=== PATIENT | male | born 1950 | race Caucasian/White ===

== ENCOUNTER 2019-04-14 12:29 | Inpatient (IN) | payer MEDICARE, SELFPAY ==
[2019-04-14] VITALS (9 sets, daily range): BP systolic 149–178; BP diastolic 100–123; PULSE 102–118; RESP 18–33; TEMP 36.4–37.4; O2SAT 86–99; BMI 23.0; BMI 22.7
--- NOTE | 2019-04-14 12:35 | DI.RAD.S_ITS ---
PROCEDURE: XR CHEST 2V INDICATIONS: Cough and sob with lying down TECHNIQUE: 2 views of the chest were acquired. COMPARISON: None. FINDINGS: Surgical changes and devices: None. Lungs and pleura: There are diffuse interstitial markings throughout both lungs and small pleural effusions. There are trace bilateral basilar airspace opacities. Mediastinum: Mediastinal contours are normal. Heart size is normal. Bones and chest wall: No suspicious bony abnormalities. Soft tissues appear unremarkable. IMPRESSION: 1. Diffuse interstitial markings and pleural effusions suggesting fluid overload. 2. Bilateral basilar pulmonary radiopacities. Differential considerations include atelectasis, aspiration, and infection. Dictated by: Jazz Hankins M.D. on 04/14/2019 at 12:21 Approved by: Jazz Hankins M.D. on 04/14/2019 at 12:23
[2019-04-14 16:18] LABS: Add Manual Diff / Slide Review NO; Basophils Absolute Auto 100 /uL (0-100); Basophils Percent Auto 0.7 % (0-2); Eosinophils Absolute Auto 0 /uL (0-450); Eosinophils Percent Auto 0.3 % (2-4); Hematocrit 33.2 % (41-53); Hemoglobin 10.9 g/dL (13.5-17.5); Lymphocytes Absolute Auto 1500 /uL (1100-4500); Lymphocytes Percent Auto 15.5 % (25-40); Mean Corpuscular HGB Conc 32.8 % (30-36); Mean Corpuscular Hemoglobin 27.4 PG (26-34); Mean Corpuscular Volume 83.6 fL (80-100); Monocytes Absolute Auto 900 /uL (0-900); Monocytes Percent Auto 9.3 % (3-14); Neutrophils Absolute Auto 7200 /uL (1500-7000); Neutrophils Percent Auto 74.2 % (50-75); Platelet Count 164 X10^3/uL (150-400); Red Blood Cell Count 3.97 X10^6/uL (4.5-5.9); Red Cell Distribution Width 14.3 % (11.6-14.8); White Blood Cell Count 9.8 X10^3/uL (4.5-11.0)
[2019-04-14 16:29] LABS: D Dimer 250 ng/mL (<230)
[2019-04-14 16:30] LABS: Alanine Aminotransferase 53 IU/L (<50); Albumin 4.2 g/dL (3.5-5.0); Albumin Globulin Ratio 1.2 (1.0-2.8); Alkaline Phosphatase 116 U/L (38-126); Aspartate Aminotransferase 36 IU/L (17-59); BUN Creatinine Ratio 16.4 (6-22); Bilirubin Total 0.7 mg/dL (0.2-1.3); Blood Urea Nitrogen 46 mg/dL (9-20); Calcium 9.6 mg/dL (8.4-10.2); Carbon Dioxide 25 mmol/L (22-32); Chloride 103 mmol/L (98-107); Creatine Kinase 107 U/L (55-170); Estimated Glomerular Filt Rate 22.5 mL/min (>60); Globulin 3.4 g/dL (1.7-4.1); Glucose 122 mg/dL (80-110); HEMOLYSIS < 15 (0-50); Lipase 51 U/L (23-300); Potassium 4.6 mmol/L (3.4-5.1); Sodium 140 mmol/L (137-145); Total Protein 7.6 g/dL (6.3-8.2)
[2019-04-14] MEDS: SODIUM CHLORIDE 0.9% 1,000 ML 150 ML IV (16:31)
[2019-04-14 16:37] LABS: B Type Natriuretic Peptide 891 (<100)
[2019-04-14 16:42] LABS: Troponin I 0.027 ng/mL (0.01-0.034)
[2019-04-14 16:46] LABS: CKMB % Relative Index 1.7 % (1.5-5.0); Creatine Kinase MB 1.78 ng/mL (<2.37)
--- NOTE | 2019-04-14 17:04 | ED_ITS ---
HPI - SOB/Dyspnea <TITI MaxP - Last Filed: 04/14/19 23:15> General Chief Complaint: Shortness of Breath/Dyspnea Stated Complaint: Not feeling well, thinks having Heart attack Time Seen by Provider: 04/14/19 15:12 Source: patient Mode of arrival: Ambulatory Limitations: no limitations History of Present Illness HPI Narrative: This is a 68-year-old male, nonsmoker, who presents to ED with several days of difficulty breathing, short of breath, gasping for air, intermittent productive cough with yellow mucus, feeling fatigued. Patient reports posttussive nausea and vomiting with liquid. Patient reports he had injured right-sided posterior rib in May 2017 from falling since then has had intermittent difficulty breathing. Patient denies fever, chills. Patient does not have currently PCP, had taken full-dose of aspirin last night due to discomfort in chest with coughing and breathing difficulty. Denies previous history of blood clots, calf swelling or pain, recent prolonged travel. Reports urinary incontinence for during last a few days. Related Data Home Medications Medication Instructions Recorded Confirmed No Known Home Medications 04/14/19 04/14/19 Allergies Allergy/AdvReac Type Severity Reaction Status Date / Time No Known Drug Allergies Allergy Verified 04/14/19 12:38 Review of Systems <Federico RamosAntoinetteTITI LyonP - Last Filed: 04/14/19 23:15> Review of Systems Narrative: General: Reports fatigue. Denies fever, chills, malaise, sweats. HEENT: Denies sinus pain, ear pain, sore throat, difficulty swallowing, dizziness. Respiratory: See HPI Cardiovascular: Chest discomfort with coughing. Denies chest pain, palpitat ions, orthopnea, edema. Gastrointestinal: Denies nausea, vomiting, abdominal pain, diarrhea, consti pation, melena. : Denies dysuria, frequency, incontinence, hematuria, urinary retention. Musculoskeletal: Denies weakness, joint pain or bony pain. Skin: Denies rash, skin lesions, or other. Neurologic: Denies weakness, headache, numbness, change in speech, confusion, seizures, incoordination. Psychiatric: No concerning psychosocial issues. 12-point review of systems is negative except for those stated above. [facility] Last Filed: 04/14/19 23:15> Medical History No chronic problems (Resolved) Surgical History Hx of hand surgery (Resolved 2001) Social History household members: none Smoking Status: Never smoker Smoking Status: Never smoker alcohol intake frequency: other Substance Use Type: does not use Exam <SHRUTI Max - Last Filed: 04/14/19 23:15> Narrative Exam Narrative: GEN: Alert, oriented x 3, well appearing and nourished, and in no acute distress. Head: Normal cephalic, atraumatic. No scalp or temporal tenderness, palpable mass or rash. EYES: Pupils are equal, round, and reactive to light and accommodation. Extraocular muscles are intact bilaterally. There is no subconjunctival hemorrhage, exudate and sclera non-icteric. ENT: Bilateral auditory canals and tympanic membranes clear. Hearing grossly intact. Nose without bleeding, purulent discharge or deviation. Facial sinuses nontender to palpate. Oral mucous membrane dried without mucosal lesion. Throat without erythema, tonsillar hypertrophy or exudate. Uvula in midline, airway patent. Neck: Trachea in midline. No JVD, non-tender without lymphadenopathy. No masses or thyroid megaly. Supple, non-tender and no meningeal signs. CARDIAC: Normal regular rate and rhythm without murmurs, gallops, or rubs. No chest wall tenderness. No peripheral edema, cyanosis or pallor. Capillary refill is less than 2 seconds. RESPIRATORY: Lungs are clear to auscultate bilaterally. No cough, wheezes, rales, or rhonchi. No stridor, respiratory distress, increase work of breathing, or accessary muscle used. ABD: Abdomen soft, nontender and non-distended. No guarding or rebound tenderness to palpate. Bowel sounds are normal in all 4 quadrants. There is no palpable masses or organomegaly. EXT: Full painless ROM of all extremities with no loss of sensation, strength, effusion or edema. SKIN: Warm, dry, normal color for patient. No erythema, lesions or rash over visible areas. BACK: Nontender without deformity or crepitance. No flank tenderness. NEUROLOGICAL: Alert and oriented to place, time and person. Sensation and motor function intact bilaterally. No facial droops, dysphasia. PSYCHIATRIC: Good judgement and reason, without hallucinations, abnormal affect or abnormal behaviors during the examination. Patient is not suicidal. Initial Vital Signs Initial Vital Signs: Vital Signs Temperature 97.5 F L 04/14/19 12:32 Pulse Rate 102 H 04/14/19 12:32 Respiratory Rate 18 04/14/19 12:32 Blood Pressure 167/105 H 04/14/19 12:32 Pulse Oximetry 99 04/14/19 12:32 <Maria Dolores Burr DO - Last Filed: 04/15/19 09:01> Initial Vital Signs Initial Vital Signs: Vital Signs Temperature 97.5 F L 04/14/19 12:32 Pulse Rate 102 H 04/14/19 12:32 Respiratory Rate 18 04/14/19 12:32 Blood Pressure 167/105 H 04/14/19 12:32 Pulse Oximetry 99 04/14/19 12:32 Scores <SHRUTI Max - Last Filed: 04/14/19 23:15> GCS Alisha coma scale eye opening: Spontaneous Anthon coma scale verbal response: Orientated Alisha coma scale motor response: Obey commands Anthon coma scale total score: 15 HEART Score Heart Score history: Slightly Suspicious Heart Score EKG: Non-Specific repolarization disturbance Heart Score Age: > or = 65 years old Heart Score risk factors: No known risk factors Heart Score troponin: < or = to normal limit Heart Score Total: 3 Course <SHRUTI Max - Last Filed: 04/14/19 23:15> Orders Ordered: Acetaminophen (Tylenol) 650 mg PO Q6HR PRN PRN Reason: Fever/Mild Pain (1-3) Heparin Sodium (Porcine) (Heparin) 5,000 unit SUBCUT BID [facility] Last Admin: 04/14/19 21:01 Dose: 5,000 unit Documented by: NIURKA Influenza Virus Vaccine (Flu Vaccine) 0.5 ml IM .ONCE ONE Stop: 04/15/19 09:01 Discontinued Medications Aspirin (Aspirin Chew) 324 mg PO NOW ONE Stop: 04/14/19 18:28 Last Admin: 04/14/19 19:14 Dose: 324 mg Documented by: NIURKA Furosemide (Lasix) 40 mg IV NOW ONE Stop: 04/14/19 17:15 Last Admin: 04/14/19 17:29 Dose: 40 mg Documented by: MAURICE Furosemide (Lasix) 40 mg IV Q12HR [facility] Last Admin: 04/14/19 23:59 Dose: 40 mg Documented by: Admin: 04/14/19 21:01 Dose: 40 mg Documented by: NIURKA Sodium Chloride (Normal Saline 0.9%) 1,000 mls @ 150 mls/hr IV CONT [facility] Last Infusion: 04/14/19 17:15 Dose: 0 mls/hr Documented by: RHIANNAARRINGTO Admin: 04/14/19 16:31 Dose: 150 mls/hr Documented by: RHIANNAARRINGTO Vital Signs Vital signs: Vital Signs - 8 hr 04/14/19 15:34 04/14/19 17:14 Pulse Rate 115 H 116 H Respiratory Rate 30 H Blood Pressure [Right Arm] 165/116 H 149/100 H Pulse Oximetry 97 99 <Maria Dolores Burr, DO - Last Filed: 04/15/19 09:01> Orders Ordered: Acetaminophen (Tylenol) 650 mg PO Q6HR PRN PRN Reason: Fever/Mild Pain (1-3) Heparin Sodium (Porcine) (Heparin) 5,000 unit SUBCUT BID [facility] Last Admin: 04/14/19 21:01 Dose: 5,000 unit Documented by: NIURKA Influenza Virus Vaccine (Flu Vaccine) 0.5 ml IM .ONCE ONE Stop: 04/15/19 09:01 Discontinued Medications Aspirin (Aspirin Chew) 324 mg PO NOW ONE Stop: 04/14/19 18:28 Last Admin: 04/14/19 19:14 Dose: 324 mg Documented by: NIURKA Furosemide (Lasix) 40 mg IV NOW ONE Stop: 04/14/19 17:15 Last Admin: 04/14/19 17:29 Dose: 40 mg Documented by: MAURICE Furosemide (Lasix) 40 mg IV Q12HR [facility] Last Admin: 04/14/19 23:59 Dose: 40 mg Documented by: Admin: 04/14/19 21:01 Dose: 40 mg Documented by: NIURKA Sodium Chloride (Normal Saline 0.9%) 1,000 mls @ 150 mls/hr IV CONT [facility] Last Infusion: 04/14/19 17:15 Dose: 0 mls/hr Documented by: Admin: 04/14/19 16:31 Dose: 150 mls/hr [facility] Vital Signs Vital signs: Vital Signs - 8 hr 04/14/19 15:34 04/14/19 17:14 Pulse Rate 115 H 116 H Respiratory Rate 30 H Blood Pressure [Right Arm] 165/116 H 149/100 H Pulse Oximetry 97 99 MDM - SOB/Dyspnea <Federico Ramos-SHRUTI Lyon - Last Filed: 04/14/19 23:15> Differential Diagnosis Differential diagnosis: Likely congestive heart failure, community acquired pneumonia, pulmonary embolism and other (STEMI, NSTEMI) Medical Records Attestation: I reviewed the patient's medical records. Lab Data Attestation: I reviewed the patient's lab results. Result diagrams: 04/15/19 04:25 04/15/19 04:25 Labs: Lab Results 04/14/19 04/14/19 04/14/19 Range/Units 16:10 16:10 16:10 WBC 9.8 (4.5-11.0) X10^3/uL RBC 3.97 L (4.5-5.9) X10^6/uL Hgb 10.9 L (13.5-17.5) g/dL Hct 33.2 L (41-53) % MCV 83.6 (80-100) fL MCH 27.4 (26-34) PG MCHC 32.8 (30-36) % RDW 14.3 (11.6-14.8) % Plt Count 164 (150-400) X10^3/uL Neut % (Auto) 74.2 (50-75) % Lymph % (Auto) 15.5 L (25-40) % [place] % (Auto) 9.3 (3-14) % Eos % (Auto) 0.3 L (2-4) % Baso % (Auto) 0.7 (0-2) % Neut # (Auto) 7200 H (2725-6673) /uL Lymph # (Auto) 1500 (8633-1703) /uL [place] # (Auto) 900 (0-900) /uL Eos # (Auto) 0 (0-450) /uL Baso # (Auto) 100 (0-100) /uL PT (10.1-12.7) SECONDS INR (0.9-1.3) APTT (26.4-36.2) SECONDS D-Dimer 250 H (<230) ng/mL Sodium 140 (137-145) mmol/L Potassium 4.6 (3.4-5.1) mmol/L Chloride 103 (98-107) mmol/L Carbon Dioxide 25 (22-32) mmol/L BUN 46 H (9-20) mg/dL Creatinine 2.80 H (0.66-1.25) mg/dL Estimated GFR 22.5 L (>60) mL/min BUN/Creatinine Ratio 16.4 (6-22) Glucose 122 H (80-110) mg/dL Calcium 9.6 (8.4-10.2) mg/dL Total Bilirubin 0.7 (0.2-1.3) mg/dL AST 36 (17-59) IU/L ALT 53 H (<50) IU/L Alkaline Phosphatase 116 (38-126) U/L Total Creatine Kinase 107 (55-170) U/L CK-MB (CK-2) 1.78 (<2.37) ng/mL CK-MB (CK-2) Rel Index 1.7 (1.5-5.0) % Troponin I 0.027 (0.01-0.034) ng/mL B-Natriuretic Peptide 891 H (<100) Total Protein 7.6 (6.3-8.2) g/dL Albumin 4.2 (3.5-5.0) g/dL Globulin 3.4 (1.7-4.1) g/dL Albumin/Globulin Ratio 1.2 (1.0-2.8) Lipase 51 (23-300) U/L // Range/Units 16:10 WBC (4.5-11.0) X10^3/uL RBC (4.5-5.9) X10^6/uL Hgb (13.5-17.5) g/dL Hct (41-53) % MCV (80-100) fL MCH (26-34) PG MCHC (30-36) % RDW (11.6-14.8) % Plt Count (150-400) X10^3/uL Neut % (Auto) (50-75) % Lymph % (Auto) (25-40) % [place]as[place] % (Auto) (3-14) % Eos % (Auto) (2-4) % Baso % (Auto) (0-2) % Neut # (Auto) (4634-9423) /uL Lymph # (Auto) (3207-0224) /uL [place] # (Auto) (0-900) /uL Eos # (Auto) (0-450) /uL Baso # (Auto) (0-100) /uL PT 13.4 H (10.1-12.7) SECONDS INR 1.2 (0.9-1.3) APTT 32 (26.4-36.2) SECONDS D-Dimer (<230) ng/mL Sodium (137-145) mmol/L Potassium (3.4-5.1) mmol/L Chloride (98-107) mmol/L Carbon Dioxide (22-32) mmol/L BUN (9-20) mg/dL Creatinine (0.66-1.25) mg/dL Estimated GFR (>60) mL/min BUN/Creatinine Ratio (6-22) Glucose (80-110) mg/dL Calcium (8.4-10.2) mg/dL Total Bilirubin (0.2-1.3) mg/dL AST (17-59) IU/L ALT (<50) IU/L Alkaline Phosphatase (38-126) U/L Total Creatine Kinase (55-170) U/L CK-MB (CK-2) (<2.37) ng/mL CK-MB (CK-2) Rel Index (1.5-5.0) % Troponin I (0.01-0.034) ng/mL B-Natriuretic Peptide (<100) Total Protein (6.3-8.2) g/dL Albumin (3.5-5.0) g/dL Globulin (1.7-4.1) g/dL Albumin/Globulin Ratio (1.0-2.8) Lipase (23-300) U/L Imaging Data Chest x-ray: Radiologist's Impression: [address] [id number] XRay Report Signed Patient: Joel Mishra LMR#: [id number] : 9Acct:[id number] Age/Sex: 68 / MDate of Service: 04/14/19 Loc: ED Accession Number: [id number] Procedure: XR chest 2V Ordering Provider: Maria Dolores Burr D.O. PROCEDURE: XR CHEST 2V INDICATIONS: Cough and sob with lying down TECHNIQUE: 2 views of the chest were acquired. COMPARISON: None. FINDINGS: Surgical changes and devices: None. Lungs and pleura: There are diffuse interstitial markings throughout both lungs and small pleural effusions. There are trace bilateral basilar airspace opacities. Mediastinum: Mediastinal contours are normal. Heart size is normal. Bones and chest wall: No suspicious bony abnormalities. Soft tissues appear unremarkable. IMPRESSION: 1. Diffuse interstitial markings and pleural effusions suggesting fluid overload. 2. Bilateral basilar pulmonary radiopacities. Differential considerations include atelectasis, aspiration, and infection. Dictated by: Jazz Hankins M.D. on 04/14/2019 at 12:21 Approved by: Jazz Hankins M.D. on 04/14/2019 at 12:23 ECG Data Attestation: I personally reviewed and interpreted this ECG as follows: Prior ECG tracings: not available for review Interpretation: ST rate at 112 with PVC Left atrial enlargement in V1/V2 No ST elevation or depression noted. MDM Narrative Medical decision making narrative: This is a 68-year-old gentleman, nonsmoker, who presents to ED with dyspnea, short of breath, chest discomfort with coughing, occasional productive cough with yellow mucus for last 4 days. Patient reports has been attempted to hydrate well. Patient reports difficulty breathing has been occurring last 2 years after he had taken a fall on right side of chest with a lump in the ribs. Patient denies fever, chills, but post-tussive nausea and vomiting. Patient denies prior history of cardiac or pulmonary disease. Obtained during triage and showed diffuse interstitial markings and pleural effusion likely due to fluid overload and bilateral basilar pulmonary radiopacities. Without leukocytosis and fever, patient was not treated with antibiotic medications at this time. Initial EKG was obtained showing sinus tachycardia with left atrial enlargement without previous EKG to compare. Patient's heart rate remained in 110's while in ED. patient was gently hydrated with normal saline for about an hour total 150 ml. CBC shows mild decreased in H&H (10.9/33.2) without leukocytosis. Patient has been afebrile while in ED. D dimer was 250 but this is normal for his age. The patient's kidney function is significantly low today with BUN of 46, creatinine of 2.8 with a GFR of 22.5. No previous chemistry test was available in the past EHR to compare but patient denied previous history of kidney problems. Patient did endorse recent urinary incontinence. Initial cardiac enzymes were negative with a BNP of 891. Patient's finding was discussed with Dr. Jenkins for CHF and acute kidney injury and he kindly accepted patient's care for an admission with tele monitor. <Maria Dolores Burr, DO - Last Filed: 04/15/19 09:01> Lab Data Labs: Lab Results 04/14/19 04/14/19 04/14/19 Range/Units 16:10 16:10 16:10 WBC 9.8 (4.5-11.0) X10^3/uL RBC 3.97 L (4.5-5.9) X10^6/uL Hgb 10.9 L (13.5-17.5) g/dL Hct 33.2 L (41-53) % MCV 83.6 (80-100) fL MCH 27.4 (26-34) PG MCHC 32.8 (30-36) % RDW 14.3 (11.6-14.8) % Plt Count 164 (150-400) X10^3/uL Neut % (Auto) 74.2 (50-75) % Lymph % (Auto) 15.5 L (25-40) % [place]as[place] % (Auto) 9.3 (3-14) % Eos % (Auto) 0.3 L (2-4) % Baso % (Auto) 0.7 (0-2) % Neut # (Auto) 7200 H (0207-6986) /uL Lymph # (Auto) 1500 (2145-7318) /uL [place] # (Auto) 900 (0-900) /uL Eos # (Auto) 0 (0-450) /uL Baso # (Auto) 100 (0-100) /uL PT (10.1-12.7) SECONDS INR (0.9-1.3) APTT (26.4-36.2) SECONDS D-Dimer 250 H (<230) ng/mL Sodium 140 (137-145) mmol/L Potassium 4.6 (3.4-5.1) mmol/L Chloride 103 (98-107) mmol/L Carbon Dioxide 25 (22-32) mmol/L BUN 46 H (9-20) mg/dL Creatinine 2.80 H (0.66-1.25) mg/dL Estimated GFR 22.5 L (>60) mL/min BUN/Creatinine Ratio 16.4 (6-22) Glucose 122 H (80-110) mg/dL Calcium 9.6 (8.4-10.2) mg/dL Total Bilirubin 0.7 (0.2-1.3) mg/dL AST 36 (17-59) IU/L ALT 53 H (<50) IU/L Alkaline Phosphatase 116 (38-126) U/L Total Creatine Kinase 107 (55-170) U/L CK-MB (CK-2) 1.78 (<2.37) ng/mL CK-MB (CK-2) Rel Index 1.7 (1.5-5.0) % Troponin I 0.027 (0.01-0.034) ng/mL B-Natriuretic Peptide 891 H (<100) Total Protein 7.6 (6.3-8.2) g/dL Albumin 4.2 (3.5-5.0) g/dL Globulin 3.4 (1.7-4.1) g/dL Albumin/Globulin Ratio 1.2 (1.0-2.8) Lipase 51 (23-300) U/L // Range/Units 16:10 WBC (4.5-11.0) X10^3/uL RBC (4.5-5.9) X10^6/uL Hgb (13.5-17.5) g/dL Hct (41-53) % MCV (80-100) fL MCH (26-34) PG MCHC (30-36) % RDW (11.6-14.8) % Plt Count (150-400) X10^3/uL Neut % (Auto) (50-75) % Lymph % (Auto) (25-40) % [place] % (Auto) (3-14) % Eos % (Auto) (2-4) % Baso % (Auto) (0-2) % Neut # (Auto) (3446-1380) /uL Lymph # (Auto) (7829-0133) /uL [place] # (Auto) (0-900) /uL Eos # (Auto) (0-450) /uL Baso # (Auto) (0-100) /uL PT 13.4 H (10.1-12.7) SECONDS INR 1.2 (0.9-1.3) APTT 32 (26.4-36.2) SECONDS D-Dimer (<230) ng/mL Sodium (137-145) mmol/L Potassium (3.4-5.1) mmol/L Chloride (98-107) mmol/L Carbon Dioxide (22-32) mmol/L BUN (9-20) mg/dL Creatinine (0.66-1.25) mg/dL Estimated GFR (>60) mL/min BUN/Creatinine Ratio (6-22) Glucose (80-110) mg/dL Calcium (8.4-10.2) mg/dL Total Bilirubin (0.2-1.3) mg/dL AST (17-59) IU/L ALT (<50) IU/L Alkaline Phosphatase (38-126) U/L Total Creatine Kinase (55-170) U/L CK-MB (CK-2) (<2.37) ng/mL CK-MB (CK-2) Rel Index (1.5-5.0) % Troponin I (0.01-0.034) ng/mL B-Natriuretic Peptide (<100) Total Protein (6.3-8.2) g/dL Albumin (3.5-5.0) g/dL Globulin (1.7-4.1) g/dL Albumin/Globulin Ratio (1.0-2.8) Lipase (23-300) U/L ECG Data Attestation: I personally reviewed and interpreted this ECG as follows: Prior ECG tracings: not available for review Interpretation: Sinus tachycardia rate [address] elevation or depression no T-wave inversion Discharge Plan Departure Patient Disposition: Admitted As Inpatient Clinical Impression: Acute kidney injury Congestive heart failure Qualifiers: Heart failure type: unspecified Heart failure chronicity: acute Qualified Code(s): I50.9 - Heart failure, unspecified Discharge Date/Time: 04/14/19 18:03 Admit Date/Time: 04/14/19 17:37 Admit Provider: Matteo Jenkins
[2019-04-14 17:16] LABS: INR 1.2 (0.9-1.3); Prothrombin Time 13.4 SECONDS (10.1-12.7)
[2019-04-14 17:19] LABS: PTT Partial Thromboplastin Tim 32 SECONDS (26.4-36.2)
[2019-04-14] MEDS: FUROSEMIDE 40 MG/4 ML VIAL IV ×3 (17:29→23:59)
--- NOTE | 2019-04-14 17:37 | PC.NURSE ---
pt was incontinent of urine, states this has been for about a month, just thought it was because he drinks so much water and juice, assisted him to change out of wet things and changed bed. Provided incontinence brief. Notified SHRUTI Caballero
--- NOTE | 2019-04-14 17:52 | PC.NURSE ---
report called to [facility], patient ready for transport
--- NOTE | 2019-04-14 18:21 | PM.HP.1 ---
History of Present Illness History of Present Illness Date Patient Seen: 04/14/19 Time Patient Seen: 18:21 Chief complaint: Not feeling well, thinks having Heart attack Narrative: Joel Mishra is a 68-year-old male with no known past medical history who presented with approximately 4 days of feeling short of breath. He jumps frequently between time periods in his history so some of the time frame may be an accurate based upon my recall. Patient states the for the past 4 days he has been more short of breath than usual, and starting yesterday he noticed that he was gasping for air especially when lying flat, he also complains of a productive cough with yellow mucus and feeling very fatigued. He reports significant short of breath and fatigue when ambulatory, especially when riding his bike. He is also noted some intermittent left-sided chest pain that did improve with an aspirin which he gave himself. He does report some arm tingling but denies any nausea, vomiting, radiation of the pain into his left arm, or neck. He denies any diaphoresis when he has chest pain. He denies any lower extremity edema. He denies any fevers, chills, headaches, vision changes, abdominal pain. He reports episodes of urinary incontinence where he will be unable to void more than a few drops when he feels like he has to void, but at other times he will be incontinent of urine. He does note previous episodes of shortness of breath and prior admissions where he was diagnosed with asthma. 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 In the ED his vital signs were notable for a sinus tachycardia, hypertension, and mild tachypnea. He was saturating well on room air. His labs were notable for a hemoglobin of 10.9, with MCV of 83. Chemistries showed a D-dimer of 250, negative for his age. His creatinine is 2.8 with a BUN of 46, his baseline is unknown. His ALT is mildly elevated at 53. His BNP was 891, initial troponin was 0.027. EKG showed sinus tachycardia without evidence of ischemia, but did show possible left atrial dilatation. Chest x-ray showed bilateral increased opacities consistent with volume overload, and small bilateral pleural effusions. Patient History Medical History No chronic problems (Resolved) Surgical History Hx of hand surgery (Resolved 2001) Family & Social History Safety & Behavioral: Feels Safe in Current Yes Environment Tobacco & Substance use: Smoking Status Never smoker alcohol intake frequency other Substance Use Type does not use Meds Home Medications and Allergies Home Medications Medication Instructions Recorded Confirmed Type No Known Home Medications 04/14/19 04/14/19 History Allergies Allergy/AdvReac Type Severity Reaction Status Date / Time No Known Drug Allergies Allergy Verified 04/14/19 12:38 Review of Systems Review of Systems Narrative: All other systems reviewed with the patient and are negative unless otherwise stated. Exam Vital Signs (past 8 hours): - 04/14/19 12:32 04/14/19 15:34 04/14/19 17:14 Temperature 97.5 F L Pulse Rate 102 H 115 H 116 H Respiratory Rate 18 30 H Blood Pressure 167/105 H Blood Pressure [Right Arm] 165/116 H 149/100 H Pulse Oximetry 99 97 99 04/14/19 17:54 Temperature Pulse Rate 118 H Respiratory Rate 31 H Blood Pressure Blood Pressure [Right Arm] 175/123 H Pulse Oximetry 98 Oxygen Delivery Method Room Air Narrative Exam Narrative: GENERAL APPEARANCE: Well developed, well nourished, in no acute distress. SKIN: Inspection of the skin reveals no rashes, ulcerations or petechiae. HEENT: The sclerae were anicteric and conjunctivae were pink and moist. Extraocular movements were intact and pupils were equal, round with normal accommodation. External inspection of the ears and nose showed no scars, lesions, or masses. Lips, teeth, and gums showed normal mucosa. The oral mucosa, hard and soft palate, tongue and posterior pharynx were unremarkable. NECK: Supple and symmetric. There was no thyroid enlargement, and no tenderness, or masses were felt. + JVD and hepatojugular reflex. CHEST: Normal AP diameter and normal contour without any kyphoscoliosis. LUNGS: Bibasilar rales, no wheezes. Normal respiratory effort. CARDIOVASCULAR: Tachycardic with regular rhythm, no murmurs rubs or gallops. Distal pulses +2. ABDOMEN: Soft and nontender with normal bowel sounds. No ascites was noted. MUSCULOSKELETAL: There was no tenderness or effusions noted. Muscle strength and tone were normal. EXTREMITIES: No cyanosis, clubbing. There is trace edema in his lower extremities. NEUROLOGIC: Alert and oriented x 3. Jumps frequently between periods in his history, appears to have some difficulty with short-term memory. Strength is +5/5 in the Upper Extremities and Lower Extremities Bilaterally. Sensation to touch was normal. Objective ECG Impression: Sinus tachycardia, possible left atrial enlargement. No evidence of active ischemia. Imaging Chest x-ray: Radiologist's impression: 1. Diffuse interstitial markings and pleural effusions suggesting fluid overload. 2. Bilateral basilar pulmonary radiopacities. Differential considerations include atelectasis, aspiration, and infection. Labs Result Diagrams: 04/14/19 16:10 04/14/19 16:10 Labs: Laboratory Results - last 24 hr 04/14/19 04/14/19 04/14/19 16:10 16:10 16:10 WBC 9.8 RBC 3.97 L Hgb 10.9 L Hct 33.2 L MCV 83.6 MCH 27.4 MCHC 32.8 RDW 14.3 Plt Count 164 Neut % (Auto) 74.2 Lymph % (Auto) 15.5 L Atlantic % (Auto) 9.3 Eos % (Auto) 0.3 L Baso % (Auto) 0.7 Neut # (Auto) 7200 H Lymph # (Auto) 1500 Atlantic # (Auto) 900 Eos # (Auto) 0 Baso # (Auto) 100 PT INR APTT D-Dimer 250 H Sodium 140 Potassium 4.6 Chloride 103 Carbon Dioxide 25 BUN 46 H Creatinine 2.80 H Estimated GFR 22.5 L BUN/Creatinine Ratio 16.4 Glucose 122 H Calcium 9.6 Total Bilirubin 0.7 AST 36 ALT 53 H Alkaline Phosphatase 116 Total Creatine Kinase 107 CK-MB (CK-2) 1.78 CK-MB (CK-2) Rel Index 1.7 Troponin I 0.027 B-Natriuretic Peptide 891 H Total Protein 7.6 Albumin 4.2 Globulin 3.4 Albumin/Globulin Ratio 1.2 Lipase 51 04/14/19 16:10 WBC RBC Hgb Hct MCV MCH MCHC RDW Plt Count Neut % (Auto) Lymph % (Auto) Atlantic % (Auto) Eos % (Auto) Baso % (Auto) Neut # (Auto) Lymph # (Auto) Atlantic # (Auto) Eos # (Auto) Baso # (Auto) PT 13.4 H INR 1.2 APTT 32 D-Dimer Sodium Potassium Chloride Carbon Dioxide BUN Creatinine Estimated GFR BUN/Creatinine Ratio Glucose Calcium Total Bilirubin AST ALT Alkaline Phosphatase Total Creatine Kinase CK-MB (CK-2) CK-MB (CK-2) Rel Index Troponin I B-Natriuretic Peptide Total Protein Albumin Globulin Albumin/Globulin Ratio Lipase Assessment & Plan Assessment & Plan narrative: Mr. Mishra is a 68-year-old male with no known past medical history presented with shortness of breath, likely acute on chronic over the past 4 days, but this is difficult to tell given patient frequently jumps between time periods during his history. He likely has heart failure, of unknown duration. He likely also has some significant chronic kidney disease, but baseline creatinine is unknown. 1. Chest pain, acute, present on admission -likely secondary to pleural effusions and volume overload / decompensated heart failure. Unlikely ACS. EKG is nonischemic. Troponin is not negative but is within normal limits at 0.027. Repeat EKG is further unchanged. Will repeat troponin tonight. -repeat troponin -ordered for 324 mg of aspirin now, does not need to continue daily aspirin at this time, however he made depending on further evaluation of his unknown health issues. -further management as noted below 2. Shortness of breath, acute on chronic -likely secondary to decompensated heart failure and volume overload given patient's history and exam findings, as well as laboratory findings consistent with atrial dilatation as well as some mild hepatic congestion given mildly elevated ALT and elevated creatinine. However the patient does have bilateral pleural effusions which are not necessarily cardiac related. He will need further workup for likely heart failure at this time. If echo is unremarkable, and patient does not improve with diuresis he may need a thoracentesis for further evaluation of his pleural effusions. His D-dimer is only 250, much below his age cutoff and PE is highly unlikely given this value. He does also report some occupational exposures, and interstitial lung disease is also in the differential. Given bilateral pleural effusions malignancy will also remain in the differential. -obtain TTE, if unremarkable consider further CT imaging of his chest (HRCT) to evaluate his lung parenchyma, further consider thoracentesis should he not improve with diuresis. -continue Lasix IV 40 mg b.i.d. -strict intake and output 3. Elevated creatinine -unclear chronicity but creatinine is 2.8. He likely has a component of CKD but has not received any outpatient care to this point. He also likely is volume overloaded. We will diurese him and see where his creatinine ends up. He could also be obstructed given his history of incontinence, however this is unclear at this time. -continue to monitor BMP -renal ultrasound -further management noted under problem 5 4. Elevated blood pressure -will continue Lasix as noted above for further diuresis, and hold on additional medications at this time pending echocardiogram. 5. Urinary incontinence, chronic, present on admission -patient reports difficulty urinating, alternating with episodes of incontinence. This could be indicative of overflow incontinence. -obtain bladder scan, consider Bradshaw if obstructed -abdominal/renal ultrasound as noted above -consider starting Flomax given evaluation as noted above. Code: Full Dispo: Admitted under observation status at this time as patient has shortness of breath and tachypneic, as well as elevated creatinine and but his underlying health issues are not known and he does not have current respiratory failure and his heart failure status is currently unknown without an echocardiogram to confirm. DVT: Heparin subcu
[2019-04-14] MEDS: ASPIRIN 81 MG CHEW TAB 324 MG PO (19:14)
--- NOTE | 2019-04-14 19:49 | DI.ECHO.S_ITS ---
[place] +---------+ Hospital +---------+ : : [address] : : : : [id number] : : : : Phone: [phone]+ Echocardiogram Report + + :Name: CHELSEA HOPKINS Study Date: 04/15/2019 Height: 71 in : :[facility] Weight: 163 lb : : Gender: Male BSA: 1.9 m2 : :: 1950 Age: 68 yrs BP: 149/94 mmHg: :Reason For Study: SOB : : Performed By: Lyndsay Us : :Referring: MIREYA CAMACHO : + + Interpretation Summary 1) Midly enlarged left ventricle with severely reduced systolic function (EF 25-30%) 2) The right ventricle is mildly dilated. Right ventricular systolic function is mildly reduced. 3) The left atrium is severely dilated. 4) There is severe mitral regurgitation. Etiology possibly secondary to enlarged LV as no obvious prolapse or flail leaflet noted. Consdier DELONTE to rule out primary mitral regurgitation. 5) There is mild to moderate tricuspid regurgitation. 6) The right ventricular systolic pressure is estimated to be at least 57 mmHg based on an estimated right atrial pressure of 3 mm Hg. 7) Hypertension present during the study (B{ 149/94mmHg). 8) No prior Echo available for comparison. Procedure: A two-dimensional transthoracic echocardiogram with color flow and Doppler was performed. The study quality was technically good. There is no prior echocardiogram noted for this patient. The heart rate ranged between 116-117 bpm during the study. Left Ventricle: The left ventricle is mildly dilated. There is normal left ventricular wall thickness. The ejection fraction is estimated to be 25-30%. Left ventricular systolic function is severely reduced. There is severe global hypokinesis of the left ventricle. Diastolic function could not be accurately assessed due to tachycardia. Right Ventricle: The right ventricle is mildly dilated. Right ventricular systolic function is mildly reduced. Atria: The left atrium is severely dilated. Right atrial size is normal. Chiari network (normal variant) is noted. The interatrial septum is intact with no evidence for an atrial septal defect. Mitral Valve: The mitral valve leaflets appear borderline thickened, but open well. There is severe mitral regurgitation. Aortic Valve: The aortic valve is trileaflet. The aortic valve opens well. There is no aortic valve stenosis. There is mild aortic regurgitation. Tricuspid Valve: The tricuspid valve leaflets are thin and pliable. There is mild to moderate tricuspid regurgitation. The right ventricular systolic pressure is estimated to be at least 57 mmHg based on an estimated right atrial pressure of 3 mm Hg. Pulmonic Valve: The pulmonic valve is not well seen, but is grossly normal. There is mild pulmonic regurgitation. Great Vessels: The aortic root is normal size. The dimensions of the ascending aorta are normal. The aortic arch is normal in size. The IVC is of normal diameter and collapses greater than 50% with a sniff. This suggests a low right atrial pressure of 3 mm Hg. Pericardium/ Pleura There is no pericardial effusion. There is a small right-sided pleural effusion. MMode/2D Measurements & Calculations LVIDd: 6.0 cm Ao root diam: 3.4 cm LVIDs: 5.1 cm Aortic Jxn: 2.5 cm FS: 15.1 % asc Aorta Diam: 3.5 cm EPSS: 2.1 cm Ao Arch Diam (Prox Trans): 2.9 cm IVSd: 0.82 cm LVPWd: 0.95 cm LV evangelista. diameter/BSA (cm/m^2): 3.1 LV sys. diameter/BSA (cm/m^2): 2.6 LA dimension: 5.0 cm RA long axis: 5.4 cm LA A2 area: 29.2 cm2 RA area: 16.7 cm2 LA A4 area: 35.5 cm2 RA vol: 43.7 ml LA length (vol): 6.4 cm RA : 22.6 ml/m2 LA vol: 137.4 ml IVC diam: 1.7 cm LA vol index: 71.1 ml/m2 RVDd major: 6.6 cm RVD1 (basal): 3.5 cm RVD2 (mid): 2.8 cm Doppler Measurements & Calculations Ao V2 max: 142.7 cm/sec AI P1/2t: 261.9 msec Ao V2 mean: 92.4 cm/sec AI dec slope: 513.4 cm/sec2 Ao max P.1 mmHg Ao mean P.9 mmHg Ao V2 VTI: 20.0 cm MV P1/2t: 68.2 msec TR max mario: 368.6 cm/sec TR max P.4 mmHg PA V2 max: 79.6 cm/sec PA V2 mean: 53.3 cm/sec PA mean P.4 mmHg PA Accel Time: 0.12 sec MV V2 mean: 97.2 cm/sec MV P1/2t max mario: 164.6 cm/sec MV mean P.0 mmHg MVA(P1/2t): 3.2 cm2 MV V2 VTI: 24.8 cm Reading Physician:12:46 PM
[2019-04-14] MEDS: HEPARIN 5,000 UNIT/ML VIAL 5000 UNIT SUBCUT (21:01)
[2019-04-14 22:24] LABS: Troponin I 0.038 ng/mL (0.01-0.034)
[2019-04-15] VITALS (11 sets, daily range): BP systolic 120–157; BP diastolic 81–100; PULSE 101–119; RESP 16–24; TEMP 36.8–37.7; O2SAT 95–99
[2019-04-15 04:59] LABS: Add Manual Diff / Slide Review NO; Basophils Absolute Auto 0 /uL (0-100); Basophils Percent Auto 0.3 % (0-2); Eosinophils Absolute Auto 0 /uL (0-450); Eosinophils Percent Auto 0.1 % (2-4); Hematocrit 33.9 % (41-53); Hemoglobin 11.2 g/dL (13.5-17.5); Lymphocytes Absolute Auto 1100 /uL (1100-4500); Lymphocytes Percent Auto 8.8 % (25-40); Mean Corpuscular HGB Conc 33.1 % (30-36); Mean Corpuscular Hemoglobin 27.5 PG (26-34); Mean Corpuscular Volume 82.9 fL (80-100); Monocytes Absolute Auto 1300 /uL (0-900); Monocytes Percent Auto 10.1 % (3-14); Neutrophils Absolute Auto 10500 /uL (1500-7000); Neutrophils Percent Auto 80.7 % (50-75); Platelet Count 155 X10^3/uL (150-400); Red Blood Cell Count 4.08 X10^6/uL (4.5-5.9); Red Cell Distribution Width 13.9 % (11.6-14.8)
[2019-04-15 05:02] LABS: Hemoglobin A1C% w Est Avg Glu 5.8 % (4.0-6.0)
[2019-04-15 05:08] LABS: Alanine Aminotransferase 54 IU/L (<50); Albumin 4.3 g/dL (3.5-5.0); Albumin Globulin Ratio 1.4 (1.0-2.8); Alkaline Phosphatase 117 U/L (38-126); Aspartate Aminotransferase 36 IU/L (17-59); BUN Creatinine Ratio 15.6 (6-22); Bilirubin Total 1.2 mg/dL (0.2-1.3); Bilirubin Unconjugated 1.1 mg/dL (0.0-1.1); Blood Urea Nitrogen 50 mg/dL (9-20); Calcium 9.7 mg/dL (8.4-10.2); Carbon Dioxide 29 mmol/L (22-32); Chloride 99 mmol/L (98-107); Cholesterol 217 mg/dL (140-199); Estimated Glomerular Filt Rate 19.3 mL/min (>60); Globulin 3.1 g/dL (1.7-4.1); Glucose 104 mg/dL (80-110); HDL Cholesterol 36 mg/dL (40-60); HEMOLYSIS < 15 (0-50); LDL Cholesterol Calculated 161 mg/dL (<100); Magnesium 2.2 mg/dL (1.6-2.3); Potassium 4.2 mmol/L (3.4-5.1); Sodium 141 mmol/L (137-145); Total Protein 7.4 g/dL (6.3-8.2); Triglycerides 101 mg/dL (35-150)
[2019-04-15 05:38] LABS: TSH w/ Reflex to FT4 4.59 uIU/mL (0.47-4.68)
--- NOTE | 2019-04-15 08:35 | DI.CT.S_ITS ---
PROCEDURE: CT ABDOMEN PELVIS WO CON INDICATIONS: b/l hydro, normal prostate on US, assess for obstruction TECHNIQUE: Noncontrast 5 mm thick sections acquired from the diaphragms to the symphysis. 5 mm coronal and sagittal reformats were then performed. For radiation dose reduction, the following was used: automated exposure control, adjustment of mA and/or kV according to patient size. COMPARISON: [facility], US, US RENAL COMPLETE, 04/15/2019, 8:08. FINDINGS: Image quality: Excellent. ABDOMEN: Lung bases: There are moderate-sized low density pleural effusions and compressive atelectasis in the dependent lungs. Solid organs: Liver is normal in size. Low density circumscribed lesions are present within the left hepatic lobe which may represent simple hepatic cysts but are incompletely characterized. There is a 7 mm diameter calcified gallstone in the gallbladder fundus. No gallbladder wall thickening or pericholecystic fluid. Pancreas is normal in contours. Spleen is normal in size. No adrenal nodules. The kidneys are normal size. There is a right lower pole low-density cystic lesion. There is mild right and moderate left perinephric fat stranding. There is severe bilateral hydronephrosis and hydroureter. No discrete mass or stone is visualized within the ureters or at the ureterovesicular junction. Peritoneum and bowel: Unenhanced bowel loops demonstrate normal wall thickness and caliber. The appendix is thin walled and gas filled. There are scattered sigmoid diverticula. No evidence for diverticulitis. No free fluid or air. Nodes and vessels: No retroperitoneal or mesenteric adenopathy by size criteria. Aorta and inferior vena cava are normal in caliber. There are scattered atheromatous calcifications throughout the aorta and iliac arteries bilaterally. Miscellaneous: No ventral hernias. PELVIS: Genitourinary: Bladder is markedly distended with urine. Miscellaneous: No inguinal hernias or adenopathy. Bones: No suspicious bony lesions. No vertebral body compression fractures. IMPRESSION: 1. Moderate-sized bilateral low density pleural effusions. 2. Severe bilateral hydronephrosis and mild to moderate bilateral perinephric fat stranding. No discrete mass lesions or stones are visualized within the ureters to explain hydronephrosis and hydroureter. 2. Distended bladder suggesting bladder with obstruction. Dictated by: Jazz Hankins M.D. on 04/15/2019 at 8:10 Approved by: Jazz Hankins M.D. on 04/15/2019 at 8:18
[2019-04-15 09:24] LABS: Troponin I 0.049 ng/mL (0.01-0.034)
[2019-04-15] MEDS: INFLUENZA VACCINE 0.5 ML SYRINGE IM (10:13)
[2019-04-15] MEDS: HEPARIN 5,000 UNIT/ML VIAL 5000 UNIT SUBCUT ×2 (10:19→21:54)
--- NOTE | 2019-04-15 11:20 | PC.NURSE ---
Addendum entered by Kenna Santiago R.N. 04/15/19 12:54: Dr hook aware, coude ready for placement. Pt requested shower prior to insertion. HR remain tachy 120's. Original Note: Pt is A/o x3, able to make needs known, talkative, less SOB reported than admission. Engle patent, leaking around this shift. During u/s, attempting to reposition engle came out, dysuria reported from Pt. Bradford blood to penis. Pt voided to urinal, 25mls, PVR 672ml.
--- NOTE | 2019-04-15 11:53 | PM.CHAP ---
Very talkative. Many stories re life and financial difficulties. Appreciative of care at .
[2019-04-15 12:25] LABS: BUN Creatinine Ratio 16.5 (6-22); Blood Urea Nitrogen 56 mg/dL (9-20); Calcium 9.8 mg/dL (8.4-10.2); Carbon Dioxide 29 mmol/L (22-32); Chloride 96 mmol/L (98-107); Glucose 98 mg/dL (80-110); HEMOLYSIS < 15 (0-50); Potassium 4.5 mmol/L (3.4-5.1); Sodium 140 mmol/L (137-145)
[2019-04-15 12:37] LABS: Troponin I 0.043 ng/mL (0.01-0.034)
[2019-04-15] MEDS: LIDOCAINE JELLY 2% 5 ML 1 APPLIC TOP (12:50)
--- NOTE | 2019-04-15 13:23 | CM.DANOTE ---
Discharge Planning/Care Management DCP: Assessment: case received, EMR reviewed. Discussed in Team Rounds. Pt is a 68 year old male who admitted yesterday evening to care of hospitalist team. [facility] Payer: Medicare. Medicaid: for food assist/EBT. Admission status: OBS with a change to INPT: as of 04/15: confirmed by UR RN Braxton. Dr. Jenkins noted this morning in Team Rounds that pt is increasing complex with confirmation now of bilateral hydronephrosis and now with consideration of an obstruction. Full dx and treatment plan remain in process. His progress note for today is not yet available. Met late morning with pt, introduced self and role. Pt was found lying in bed, very agreeable to discussion. He clarifies to some extent his complex social history and current situation. Pt worked in past as a [employer] and eventually found his way to [place] where he lives on a boat which he spent a long time fixing up (apparently in [place]). 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 ([address]/[place]) His boat has electricity, heat, a bathroom with shower facilities but he says he prefers to use the [facility] shower and and laundry services and has been given a shields to same by the management. Pt has social security of $1200 a month and this plus medicaid food assist have worked well for him he says. POA: asked about POA or other contacts. Pt states his primary contact (and only one he wants noted on his records) is his friend of 40 years Cesar Memo: [phone]. Cesar is currently in [place] but pt says If he was needed he would come right here. He says he has made out a will and Cesar has a copy of this. He will get my boat and anything else I might have when I . At this point the POC going forward is unclear but IF pt is stable for the snf setting at d/c he readily agrees that this would be a good idea. He is aware that his Medicare would cover this if criteria is met. SNF list: discussed. Pt prefers the only local facility: [facility] : referral is now given to Caleb/he states currently [facility] does have male beds and he will review today. At this point will not obtain a second snf choice as is so early in this process. Will follow up over the weekend. CM Discharge Assessment Start: 04/15/19 13:20 Freq: Status: Active Protocol: Document 04/15/19 13:21 ITV (Rec: 04/15/19 13:23 ITV [id number]) Discharge Planning Assessment Advance Directives? No History Provided By Patient,Medical Record Comment lives on boat, dry docked at [facility] [employer]. Household Members none Independent with ADL's Yes Is patient alert and oriented? Yes Whiteboard Updated in Patient Room with Yes name and ext. # of Residential Tech Review Status In Process
--- NOTE | 2019-04-15 13:42 | DI.US.S_ITS ---
PROCEDURE: US RENAL COMPLETE INDICATIONS: HYDRONEPHROSIS; CHECK GUALLPA PLACEMENT TECHNIQUE: Real-time scanning was performed of the kidneys and bladder, with image documentation. COMPARISON: [facility], CT, CT ABDOMEN PELVIS WO CON, 04/15/2019, 8:42. [facility], US, US RENAL COMPLETE, 04/15/2019, 8:08. FINDINGS: Kidneys: Kidneys are normal in size. Right kidney measures 11.7 cm long; left kidney measures 11.8 cm long. Right renal cortical thickness is 1.9 cm; left renal cortical thickness is 1.5 cm. Renal cortical echotexture is normal. Improved bilateral hydronephrosis after Guallpa catheter placement earlier today. There is left-sided nephrolithiasis comprised of a 1.2 cm nonobstructive calculus lower third left renal collecting system. No suspicious solid mass lesions. Bladder: Centrally positioned Guallpa catheter, almost complete emptying of the bladder lumen now when compared with the study by CT from earlier today. Miscellaneous: No free pelvic fluid. IMPRESSION: Significant improvement in bilateral hydronephrosis in this patient who has had a Guallpa catheter place within the central portion of the bladder, almost completely empty the bladder with reference to the imaging from earlier today. Dictated by: Serjio Tesfaye M.D. on 04/15/2019 at 14:30 Approved by: Serjio Tesfaye M.D. on 04/15/2019 at 14:33
--- NOTE | 2019-04-15 14:04 | P.PN_ITS ---
Subjective Subjective Date Patient Seen: 04/15/19 Time Patient Seen: 14:04 Interval history: Mr. Mishra is seen today for follow-up of shortness of breath and an elevated creatinine of unknown chronicity. He continues to feel well with no complaints of chest pain today or shortness of breath. However he has not ambulated. He does have some discomfort from a Bradshaw catheter that was placed, but otherwise feels well today. He has no abdominal pain, nausea, or vomiting. Last evening, I evaluated the patient given reported symptoms of overflow incontinence and a bladder scan of greater than 600. He appeared to have bilateral hydronephrosis, a Bradshaw catheter was placed with adequate urine output, initially approximately 600 cc. Today, patient still had bilateral hydro with no evidence of the catheter in his bladder. Attempt was made to reposition however it was still not seen, blood was also noted at the Bradshaw catheter tip. Bradshaw catheter was removed. I obtained a CT abdomen to look for possible bladder outlet or urethral obstruction, however none was seen. Bradshaw catheter was replaced with significant urine output after placement. I discussed the case with the on-call urologist, who stated that the hydronephrosis can take weeks to resolve after placement of a Bradshaw catheter, and his creatinine may continue to rise for another day but should start to improve. He recommended that the patient be discharged with the Bradshaw catheter and follow up with a urologist as an outpatient. His elevated creatinine may also be worsened by the fact that he is volume overloaded and his echo did come back with an EF of 25-30% today. He is not requiring supplemental oxygen and though he does have JVD and significant lung crackles I would like to avoid diuresis at this time until his creatinine begins to improve after relieving his obstruction. Exam Vital Signs (past 8 hours): - 04/15/19 07:00 04/15/19 07:09 04/15/19 08:30 Temperature 99.5 F Pulse Rate 101 H Respiratory Rate 21 Blood Pressure 157/100 H Pulse Oximetry 96 96 98 04/15/19 11:19 04/15/19 11:53 Temperature 99.7 F H Pulse Rate 119 H Respiratory Rate 16 Blood Pressure 149/94 H Pulse Oximetry 97 Oxygen Delivery Method Room Air Oxygen Flow Rate 1 Narrative Exam Narrative: GENERAL APPEARANCE: Well developed, well nourished, in no acute distress. SKIN: Inspection of the skin reveals no rashes, ulcerations or petechiae. HEENT: The sclerae were anicteric and conjunctivae were pink and moist. Extraocular movements were intact and pupils were equal, round with normal accommodation. External inspection of the ears and nose showed no scars, lesions, or masses. Lips, teeth, and gums showed normal mucosa. The oral mucosa, hard and soft palate, tongue and posterior pharynx were unremarkable. NECK: Supple and symmetric. There was no thyroid enlargement, and no tenderness, or masses were felt. + JVD and hepatojugular reflex. CHEST: Normal AP diameter and normal contour without any kyphoscoliosis. LUNGS: Bibasilar rales, no wheezes. Normal respiratory effort. CARDIOVASCULAR: Tachycardic with regular rhythm, no murmurs rubs or gallops. Distal pulses +2. ABDOMEN: Soft and nontender with normal bowel sounds. No ascites was noted. MUSCULOSKELETAL: There was no tenderness or effusions noted. Muscle strength and tone were normal. EXTREMITIES: No cyanosis, clubbing. There is trace edema in his lower extremities. NEUROLOGIC: Alert and oriented x 3. Jumps frequently between periods in his history, appears to have some difficulty with short-term memory. Strength is +5/5 in the Upper Extremities and Lower Extremities Bilaterally. Sensation to touch was normal. Objective Labs Result Diagrams: 04/15/19 04:25 04/15/19 12:05 Labs: Laboratory Results - last 24 hr 04/14/19 04/14/19 04/14/19 16:10 16:10 16:10 WBC 9.8 RBC 3.97 L Hgb 10.9 L Hct 33.2 L MCV 83.6 MCH 27.4 MCHC 32.8 RDW 14.3 Plt Count 164 Neut % (Auto) 74.2 Lymph % (Auto) 15.5 L [place] % (Auto) 9.3 Eos % (Auto) 0.3 L Baso % (Auto) 0.7 Neut # (Auto) 7200 H Lymph # (Auto) 1500 [place] # (Auto) 900 Eos # (Auto) 0 Baso # (Auto) 100 PT INR APTT D-Dimer 250 H Sodium 140 Potassium 4.6 Chloride 103 Carbon Dioxide 25 BUN 46 H Creatinine 2.80 H Estimated GFR 22.5 L BUN/Creatinine Ratio 16.4 Glucose 122 H Hemoglobin A1c Calcium 9.6 Magnesium Total Bilirubin 0.7 Conjugated Bilirubin Unconjugated Bilirubin AST 36 ALT 53 H Alkaline Phosphatase 116 Total Creatine Kinase 107 CK-MB (CK-2) 1.78 CK-MB (CK-2) Rel Index 1.7 Troponin I 0.027 B-Natriuretic Peptide 891 H Total Protein 7.6 Albumin 4.2 Globulin 3.4 Albumin/Globulin Ratio 1.2 Triglycerides Cholesterol LDL Cholesterol, Calc HDL Cholesterol Lipase 51 TSH Nasal Screen MRSA (PCR) 04/14/19 04/14/19 04/14/19 16:10 21:18 21:50 WBC RBC Hgb Hct MCV MCH MCHC RDW Plt Count Neut % (Auto) Lymph % (Auto) [place] % (Auto) Eos % (Auto) Baso % (Auto) Neut # (Auto) Lymph # (Auto) [place] # (Auto) Eos # (Auto) Baso # (Auto) PT 13.4 H INR 1.2 APTT 32 D-Dimer Sodium Potassium Chloride Carbon Dioxide BUN Creatinine Estimated GFR BUN/Creatinine Ratio Glucose Hemoglobin A1c Calcium Magnesium Total Bilirubin Conjugated Bilirubin Unconjugated Bilirubin AST ALT Alkaline Phosphatase Total Creatine Kinase CK-MB (CK-2) CK-MB (CK-2) Rel Index Troponin I 0.038 H B-Natriuretic Peptide Total Protein Albumin Globulin Albumin/Globulin Ratio Triglycerides Cholesterol LDL Cholesterol, Calc HDL Cholesterol Lipase TSH Nasal Screen MRSA (PCR) Negative for mrsa 04/15/19 04/15/19 04/15/19 04:25 04:25 04:25 WBC 13.0 H RBC 4.08 L Hgb 11.2 L Hct 33.9 L MCV 82.9 MCH 27.5 MCHC 33.1 RDW 13.9 Plt Count 155 Neut % (Auto) 80.7 H Lymph % (Auto) 8.8 L [place] % (Auto) 10.1 Eos % (Auto) 0.1 L Baso % (Auto) 0.3 Neut # (Auto) 34963 H Lymph # (Auto) 1100 [place] # (Auto) 1300 H Eos # (Auto) 0 Baso # (Auto) 0 PT INR APTT D-Dimer Sodium 141 Potassium 4.2 Chloride 99 Carbon Dioxide 29 BUN 50 H Creatinine 3.20 H Estimated GFR 19.3 L BUN/Creatinine Ratio 15.6 Glucose 104 Hemoglobin A1c 5.8 Calcium 9.7 Magnesium 2.2 Total Bilirubin 1.2 Conjugated Bilirubin 0.0 Unconjugated Bilirubin 1.1 AST 36 ALT 54 H Alkaline Phosphatase 117 Total Creatine Kinase CK-MB (CK-2) CK-MB (CK-2) Rel Index Troponin I B-Natriuretic Peptide Total Protein 7.4 Albumin 4.3 Globulin 3.1 Albumin/Globulin Ratio 1.4 Triglycerides 101 Cholesterol 217 H LDL Cholesterol, Calc 161 H HDL Cholesterol 36 L Lipase TSH Nasal Screen MRSA (PCR) 04/15/19 04/15/19 04/15/19 04:25 04:49 12:05 WBC RBC Hgb Hct MCV MCH MCHC RDW Plt Count Neut % (Auto) Lymph % (Auto) [place] % (Auto) Eos % (Auto) Baso % (Auto) Neut # (Auto) Lymph # (Auto) [place] # (Auto) Eos # (Auto) Baso # (Auto) PT INR APTT D-Dimer Sodium 140 Potassium 4.5 Chloride 96 L Carbon Dioxide 29 BUN 56 H Creatinine 3.40 H Estimated GFR 18.0 L BUN/Creatinine Ratio 16.5 Glucose 98 Hemoglobin A1c Calcium 9.8 Magnesium Total Bilirubin Conjugated Bilirubin Unconjugated Bilirubin AST ALT Alkaline Phosphatase Total Creatine Kinase CK-MB (CK-2) CK-MB (CK-2) Rel Index Troponin I 0.049 H 0.043 H B-Natriuretic Peptide Total Protein Albumin Globulin Albumin/Globulin Ratio Triglycerides Cholesterol LDL Cholesterol, Calc HDL Cholesterol Lipase TSH 4.59 Nasal Screen MRSA (PCR) Assessment & Plan Assessment & Plan narrative: Mr. Mishra is a 68-year-old male with no known past medical history presented with shortness of breath, likely acute on chronic over the past 4 days, but this is difficult to tell given patient frequently jumps between time periods during his history. He was found to have heart failure with reduced ejection fraction of 25-30%. 1. Acute urinary obstruction with bilateral hydronephrosis-patient reports difficulty urinating, alternating with episodes of incontinence. This could be indicative of overflow incontinence and likely chronic obstruction. Discussed the case with urologist underwriting consultant Dr. Torres who agrees with current management. States that patient has acute renal failure should begin to resolve after replacement of Bradshaw catheter and that hydronephrosis can take a few weeks to resolve, especially if chronic in nature. -initial bladder scan showing a volume of 600. Bradshaw catheter was placed initially after bedside ultrasound showed bilateral hydronephrosis. Repeat ultrasound again showed bilateral hydronephrosis, but no catheter in the bladder. Catheter attempted to be manipulated, however it was not seen. Bradshaw catheter was removed. There was some concern for possible urethral obstruction at this time, so he underwent CT evaluation which was fairly unremarkable except for his known hydronephrosis. Repeat catheter was placed and will repeat abdominal ultrasound to confirm placement of his Bradshaw catheter. -abdominal/renal ultrasound as noted above -consider starting Flomax -will need outpatient urology follow-up, and on-call urologist as noted above did recommend discharge with Bradshaw catheter. 2. Decompensated systolic heart failure, chronicity unknown- -TTE today with Midly enlarged left ventricle with severely reduced systolic function (EF 25-30%). The right ventricle is mildly dilated. Right ventricular systolic function is mildly reduced.The left atrium is severely dilated. There is severe mitral regurgitation. Etiology possibly secondary to enlarged LV as no obvious prolapse or flail leaflet noted. Consdier DELONTE to rule out primary mitral regurgitation. mild to moderate tricuspid regurgitation. -patient has JVD, bibasilar crackles, however he is not hypoxic and is only minimally dyspneic on exertion per report. Patient was diuresed yesterday, and did have Bradshaw catheter placed however as noted above it is unclear if this was in the bladder. Will hold off on further diuresis given rising creatinine and concern for obstruction. Once creatinine starts to improve after relieving his obstruction will start to diurese and limit his fluid intake. -have ordered the patient to start lisinopril tomorrow, however this may need to be held if his creatinine still is rising. Will hold on beta-florencio therapy at this time given volume overload. 3. Acute renal failure -unclear chronicity but creatinine was 2.8 on admission and continues to rise to 3.4 this afternoon. Acute component is likely secondary to obstruction. He likely has a component of CKD but has not received any outpatient care to this point. He also likely is volume overloaded. He appears to be obstructed probably from BPH. It is unclear if the initial Bradshaw catheter that was placed was fully in the bladder, however new Bradshaw catheter is placed and repeat ultrasound is pending. Favor continuing to monitor his creatinine until improvement and then diuresing as noted above. -continue to monitor BMP -repeat renal ultrasound this evening to ensure Bradshaw catheter remains in bladder -further management noted under problem 1 4. Elevated blood pressure -mildly elevated blood pressures, will initiate lisinopril 5. type II ID, resolved-likely secondary to pleural effusions and volume overload / decompensated heart failure. Troponin has down trended. EKG is nonischemic. Repeat EKG was further unchanged. -ordered for 324 mg of aspirin x1, does not need to continue daily aspirin at this time, however he may depending on further evaluation of his unknown health issues. -further management of other conditions as noted above Code: Full Dispo: Changed to inpatient status. Pending medical stability and will need additional diuresis once acute obstruction has resolved. DVT: Heparin subcu
--- NOTE | 2019-04-15 14:08 | PC.NURSE ---
GUALLPA REPLACED PER MD ORDERS WITH SOME DISCOMFORT TO PT BUT QUICK RETURN OF APPROX 750+ CC OF PALE CLEAR URINE WITH SMALL CLOT NOTED. JUST PRIOR TO PLACEMENT OF GUALLPA #2, HE SHOWERED AND HAD A LARGE AMOUNT OF BLOODY DRAINAGE IN BRIEF- REPEAT ULTRASOUND AT PRESENT
--- NOTE | 2019-04-15 18:40 | DI.US.S_ITS ---
PROCEDURE: US RENAL COMPLETE INDICATIONS: ELEVATED CR. ASSESS KIDNEY/BLADDER/PROSTATE TECHNIQUE: Real-time scanning was performed of the kidneys and bladder, with image documentation. COMPARISON: [facility] [place], CT, CT ABDOMEN PELVIS WO CON, 04/15/2019, 8:42. FINDINGS: Kidneys: Kidneys are normal in size. Right kidney measures 12.5 cm long; left kidney measures 11.1 cm long. Right renal cortical thickness is 1.1 cm; left renal cortical thickness is 1.2 cm. Renal cortical echotexture is normal. There is severe bilateral hydronephrosis. There is trace left perinephric fluid, likely representing moderate fat stranding. Bladder: Pre-void bladder volume is 547 mL. Post-void residual was not obtained. A Bradshaw catheter is present within the bladder. The ureters are visualized throughout their course and are markedly dilated to the level of the UVJ. Miscellaneous: No free pelvic fluid. IMPRESSION: 1. Severe bilateral hydronephrosis and hydroureter. 2. Large amount of fluid within the urinary bladder despite the presence of a Bradshaw catheter. Dictated by: Jazz Hankins M.D. on 04/15/2019 at 8:06 Approved by: Jazz Hankins M.D. on 04/15/2019 at 8:10
[2019-04-16] VITALS (12 sets, daily range): BP systolic 115–154; BP diastolic 65–96; PULSE 95–106; RESP 16–18; TEMP 36.5–37.6; O2SAT 92–98
--- NOTE | 2019-04-16 05:01 | PC.NURSE ---
Called to patient's room by director of cath lab stating the patient is coughing up blood. Small amoutn of blood noted on blanket and the patient reports that I just coughed that up. He also reports that he gets chronic nose bleeding and has been blowing his nose all night with some blood on the tissue. He is in NAD, no other bleeding noted. Denies other complaints. It appears to be post nasal drip that he is coughing up. He was recently start on Heparin SQ. This mornings labs pending. Discussed with SHRUTI Ball, no new orders.
[2019-04-16 05:13] LABS: Add Manual Diff / Slide Review NO; Basophils Absolute Auto 0 /uL (0-100); Basophils Percent Auto 0.5 % (0-2); Eosinophils Absolute Auto 0 /uL (0-450); Eosinophils Percent Auto 0.3 % (2-4); Hematocrit 31.3 % (41-53); Hemoglobin 10.5 g/dL (13.5-17.5); Lymphocytes Absolute Auto 1100 /uL (1100-4500); Lymphocytes Percent Auto 11.6 % (25-40); Mean Corpuscular HGB Conc 33.6 % (30-36); Mean Corpuscular Hemoglobin 27.9 PG (26-34); Mean Corpuscular Volume 82.9 fL (80-100); Monocytes Absolute Auto 1000 /uL (0-900); Monocytes Percent Auto 10.9 % (3-14); Neutrophils Absolute Auto 7200 /uL (1500-7000); Neutrophils Percent Auto 76.7 % (50-75); Platelet Count 125 X10^3/uL (150-400); Red Blood Cell Count 3.77 X10^6/uL (4.5-5.9); Red Cell Distribution Width 14.3 % (11.6-14.8); White Blood Cell Count 9.4 X10^3/uL (4.5-11.0)
[2019-04-16 05:23] LABS: Alanine Aminotransferase 38 IU/L (<50); Albumin 3.7 g/dL (3.5-5.0); Albumin Globulin Ratio 1.2 (1.0-2.8); Alkaline Phosphatase 95 U/L (38-126); Aspartate Aminotransferase 26 IU/L (17-59); BUN Creatinine Ratio 16.9 (6-22); Bilirubin Total 1.1 mg/dL (0.2-1.3); Bilirubin Unconjugated 1.1 mg/dL (0.0-1.1); Blood Urea Nitrogen 54 mg/dL (9-20); Calcium 8.5 mg/dL (8.4-10.2); Carbon Dioxide 30 mmol/L (22-32); Chloride 95 mmol/L (98-107); Estimated Glomerular Filt Rate 19.3 mL/min (>60); Globulin 3.2 g/dL (1.7-4.1); Glucose 98 mg/dL (80-110); HEMOLYSIS < 15 (0-50); Magnesium 1.9 mg/dL (1.6-2.3); Potassium 3.3 mmol/L (3.4-5.1); Sodium 136 mmol/L (137-145); Total Protein 6.9 g/dL (6.3-8.2)
[2019-04-16 05:28] LABS: HEMOLYSIS < 15 (0-50); Iron 14 ug/dL (49-181)
[2019-04-16 05:38] LABS: Percent Iron Saturation 4 % (20-50); Total Iron Binding Capacity 312 ug/dL (261-462); Transferrin 232 mg/dL (206-381)
--- NOTE | 2019-04-16 08:02 | P.PN_ITS ---
Subjective Subjective Date Patient Seen: 04/16/19 Interval history: Joel Mishra is a 68-year-old male with no known past medical history who presented with progressive worsening shortness of breath, likely acute on chronic and acutely worsening over the past 4 days prior to admission, but difficult to tell as the patient is a very poor historian. The patient is resting in bedside chair comfortably and in no acute distress. He reports his shortness of breath at rest and orthopnea have resolved. He continues to have mild dyspnea on exertion. He endorses dysuria and BPH sympto ms including urinary hesitancy, urinary dribbling, bladder incontinence, split stream, urinary frequency and incomplete bladder emptying. He has some left- sided flank tenderness on exam, he had a mild leukocytosis on admission that is now resolved, he continues to be mildly tachycardic and his urinalysis appears grossly infected, therefore, will plan to start empiric antibiotics for UTI today. He has no other complaints and denies headache, chest pain or pressure, shortness of breath, abdominal pain, nausea, vomiting, fever, chills, diarrhea or constipation. He is voiding via Bradshaw catheter without difficulty. He has not had a bowel movement since admission and a bowel regimen has been i mplemented. He is up ambulating with assistance. Exam Vital Signs (past 8 hours): - 04/16/19 01:56 04/16/19 04:00 04/16/19 05:00 Temperature 97.7 F 99.6 F Pulse Rate 98 H 101 H Respiratory Rate 16 16 Blood Pressure 117/65 124/84 Pulse Oximetry 96 97 92 04/16/19 07:35 04/16/19 07:51 Temperature 99.1 F Pulse Rate 102 H Respiratory Rate 16 Blood Pressure 146/96 H Pulse Oximetry 96 96 Oxygen Delivery Method Room Air Oxygen Flow Rate 0 Narrative Exam Narrative: General: Elderly male sitting in bedside chair and in no acute distress, appears younger than stated age, well-developed, well-nourished, appropriately interactive HEENT: Normocephalic, atraumatic. External ears without defect. Pupils equal, round, and reactive to light. Anicteric sclerae, moist conjunctivae, and no lid lag. Neck: Supple with full range of motion. Jugular venous distension present. No lymphadenopathy or thyromegaly. Cardiovascular: Regular rhythm, mildly tachycardic, without murmurs, rubs, or gallops appreciated. Pulmonary: Clear to auscultation bilaterally and diminished at bilateral bases without crackles, wheezes, or rhonchi. Normal respiratory effort with no use of accessory muscles. Abdomen: Soft, bowel sounds present, nontender, nondistended. Mild left-sided flank tenderness. No hepatosplenomegaly or masses appreciated. Extremities: No clubbing, cyanosis, or edema. Skin: Normal temperature, turgor, and texture; no rash, ulcers, or subcutaneous nodules appreciated. Neurological: Cranial nerves grossly intact. Psychiatric: Normal mood and affect. Appears alert and oriented to person, place, and time. Objective Labs Result Diagrams: 04/16/19 04:55 04/16/19 04:55 Labs: Laboratory Results - last 24 hr 04/15/19 04/15/19 04/16/19 04:49 12:05 04:55 WBC 9.4 RBC 3.77 L Hgb 10.5 L Hct 31.3 L MCV 82.9 MCH 27.9 MCHC 33.6 RDW 14.3 Plt Count 125 L Neut % (Auto) 76.7 H Lymph % (Auto) 11.6 L [place] % (Auto) 10.9 Eos % (Auto) 0.3 L Baso % (Auto) 0.5 Neut # (Auto) 7200 H Lymph # (Auto) 1100 [place] # (Auto) 1000 H Eos # (Auto) 0 Baso # (Auto) 0 Sodium 140 Potassium 4.5 Chloride 96 L Carbon Dioxide 29 BUN 56 H Creatinine 3.40 H Estimated GFR 18.0 L BUN/Creatinine Ratio 16.5 Glucose 98 Calcium 9.8 Magnesium Iron TIBC % Saturation Transferrin Total Bilirubin Conjugated Bilirubin Unconjugated Bilirubin AST ALT Alkaline Phosphatase Troponin I 0.049 H 0.043 H Total Protein Albumin Globulin Albumin/Globulin Ratio 04/16/19 04/16/19 04:55 04:55 WBC RBC Hgb Hct MCV MCH MCHC RDW Plt Count Neut % (Auto) Lymph % (Auto) [place] % (Auto) Eos % (Auto) Baso % (Auto) Neut # (Auto) Lymph # (Auto) [place] # (Auto) Eos # (Auto) Baso # (Auto) Sodium 136 L Potassium 3.3 L D Chloride 95 L Carbon Dioxide 30 BUN 54 H Creatinine 3.20 H Estimated GFR 19.3 L BUN/Creatinine Ratio 16.9 Glucose 98 Calcium 8.5 Magnesium 1.9 Iron 14 L TIBC 312 % Saturation 4 L Transferrin 232 Total Bilirubin 1.1 Conjugated Bilirubin 0.0 Unconjugated Bilirubin 1.1 AST 26 ALT 38 Alkaline Phosphatase 95 Troponin I Total Protein 6.9 Albumin 3.7 Globulin 3.2 Albumin/Globulin Ratio 1.2 Assessment & Plan Assessment & Plan narrative: Joel Mishra is a 68-year-old male with no known past medical history who pre sented with progressive worsening shortness of breath, likely acute on chronic and acutely worsening over the past 4 days prior to admission, but difficult to tell as the patient is a very poor historian. 1. Acute obstructive uropathy with bilateral hydronephrosis, likely secondary to BPH, present on admission. Resolving. -Patient reports difficulty urinating, alternating with episodes of incon tinence. Likely indicative of overflow incontinence in setting of chronic obstruction. -Initial PVR demonstrated urinary retention of 600 cc and bedside ultrasound showed bilateral hydronephrosis. Bradshaw catheter was placed with good urine output. A renal ultrasound demonstrated bilateral hydronephrosis, but no catheter visualized within the urinary bladder. Nursing attempted to advance/manipulate the Bradshaw catheter, however, it was still not visualized on ultrasound and Bradshaw catheter was removed. There was some concern for possible urethral obstruction, therefore, a CT abdomen and pelvis without contrast was performed and demonstrated severe bilateral hydronephrosis and mild to moderate bilateral perinephric fat stranding, no discrete mass lesions or stones visualized within the ureters to explain hydronephrosis and hydroureter. Replaced Bradshaw catheter and repeat renal ultrasound demonstrated significant improvement in bilateral hydronephrosis in this patient who has now had a Bradshaw catheter placed within the central portion of the bladder with almost completely emptying of the bladder. -Started tamsulosin 0.4 mg daily. -Previous provider discussed the case with on-call Urology at the [facility], Dr. Torres, who agrees with current management and would anticipate acute renal failure should begin to resolve after replacement of Bradshaw catheter and that hydronephrosis can take a few weeks to resolve, especially if chronic in nature. Recommended leaving Bradshaw catheter in place and follow-up with urology as an outpatient. 2. Acute UTI, present on admission. Active. -Patient endorses urinary tract/BPH symptoms including dysuria, urinary frequency, urinary hesitancy, split stream, urinary dribbling and incomplete bladder emptying. -Urinalysis appears grossly infected. -Started renally dosed levofloxacin 750 every 48 hours pending urine culture identification and sensitivities. 3. Acute kidney injury on probable chronic kidney disease stage IV, present on admission. Active. -Unclear baseline creatinine. Initial creatinine 2.8. Creatinine trended up to 3.4 likely secondary to obstructive uropathy and congestive nephropathy. Creatinine is now trending down since obstructive uropathy resolved and creatinine is currently 3.2. He likely has a component of CKD but has not received any outpatient care up to this point, therefore, his baseline renal function is unknown. Plan to continue to monitor his creatinine until there is significant improvement and stability and then will diurese as tolerated. -Avoid nephrotoxic agents. -Continue Bradshaw catheter management and plan for outpatient urology follow-up as above. -Continue to monitor renal function daily. 4. Newly diagnosed systolic congestive heart failure EF 25-30%, acuity unknown, present on admission. Active. -Patient presented with progressive worsening dyspnea on exertion leading to shortness of breath at rest and orthopnea x 4 days. Patient had JVD, bibasilar crackles, bilateral small pleural effusions, and trace peripheral edema on initial exam. He has not been hypoxemic. -Echocardiogram demonstrated mildly enlarged left ventricle with severely reduced systolic function (EF 25-30%), right ventricle is mildly dilated and systolic function is mildly reduced, left atrium is severely dilated, mild to moderate tricuspid regurgitation and severe mitral regurgitation. Etiology possibly secondary to enlarged LV as no obvious prolapse or flail leaflet noted and recommend to consider DELONTE to rule out primary mitral regurgitation. -Received furosemide 40 mg IV x1 in ED. Patient was then diuresed on admission and received additional furosemide 40 mg IV every 12 hours x 2 doses. Diuresis was then discontinued due to obstructive uropathy and worsening renal function. he patient's bibasilar crackles and peripheral edema have resolved. He continues to have mild JVD and small bilateral pleural effusions on exam, therefore, will plan to diuresis further in next 1-2 days once renal function is stable and improving. -Started metoprolol succinate 25 mg daily. Will hold off on starting ACEI or ARB due to acute kidney injury. -Continue strict I&O and daily weights. Net - 3L. -Continue heart healthy low-sodium diet with fluid restriction of 1.5 L daily. 5. Newly diagnosed hypertension, likely chronic, present on admission. Active. -Started metoprolol succinate 25 mg daily to treat newly diagnosed CHF, as well as, hypertension. 6. Newly diagnosed hyperlipidemia, likely chronic, present on admission. Active. -Fasting lipid panel demonstrated poor lipid control: Total cholesterol 217, Triglycerides 101, LDL 161 (goal <100), HDL 36. -Started atorvastatin 40 mg daily at bedtime. 7. Elevated troponin, likely secondary to demand ischemia from volume overload from CHF, present on admission. Resolved. -Secondary to volume overload from newly diagnosed systolic congestive heart failure and obstructive uropathy. Troponin has down trended. EKG is nonischem ic. Repeat EKG was further unchanged. -Received 324 mg of aspirin x1 in ED. Continue aspirin 81 mg daily. Code status: Full Code DVT: SQ Heparin Disposition: Patient likely to discharge to senior care facility in 2-3 days for rehabilitation and continued medical management of complex co- morbidities once renal function has improved and he has been adequately diuresed.
[2019-04-16 08:27] LABS: Hemoglobin A1C% w Est Avg Glu 5.9 % (4.0-6.0)
[2019-04-16 09:00] LABS: Appearance Urine UA SL CLOUDY; Bilirubin Urine UA NEGATIVE (NEGATIVE); Color Urine UA RED; Glucose Urine UA NEGATIVE (Negative); Ketones Urine UA NEGATIVE (NEGATIVE); Leukocyte Esterase Urine UA 3+ (NEGATIVE); Nitrite Urine UA NEGATIVE (Negative); Occult Blood Urine UA 3+ (Negative); Protein Urine UA 2+ (Negative); Specific Gravity Urine UA <=1.005 (1.000-1.035); Urobilinogen Urine UA 0.2 E.U./dL (0.2)
[2019-04-16] MEDS: ASPIRIN EC 81 MG TABLET PO (09:05)
[2019-04-16] MEDS: METOPROLOL ER 25 MG TABLET PO (09:05)
[2019-04-16] MEDS: FERROUS GLUCONATE 324 MG TABLET PO (09:05)
[2019-04-16] MEDS: TAMSULOSIN 0.4 MG CAPSULE PO (09:05)
[2019-04-16] MEDS: HEPARIN 5,000 UNIT/ML VIAL 5000 UNIT SUBCUT ×2 (09:06→20:51)
[2019-04-16 09:07] LABS: RBC Urine >100/HPF (0-5/HPF)
[2019-04-16] MEDS: POTASSIUM CHLORIDE 20 MEQ TAB 40 MEQ PO (09:07)
[2019-04-16 09:08] LABS: Bacteria Urine Few (2-10); Culture Indicated Urine Specimen Cultured; WBC Urine >100/HPF (0-5/HPF)
--- NOTE | 2019-04-16 11:57 | PM.CHAP ---
Pt interested in lowcost living arrangement. Unable to live on boat due to health problems.
[2019-04-16] MEDS: levoFLOXacin 250 MG TABLET 750 MG PO (12:14)
--- NOTE | 2019-04-16 14:20 | PC.NURSE ---
Pt is AO x3 and making needs known with clear speech. 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 It is somewhat difficult to engage him in formal education regarding his disease processes and medication regimen due to this. Written and verbal education are provided. Pt will likely need ongoing and frequent education.
[2019-04-16] MEDS: FLEETS ENEMA 1 EACH PR (14:32)
--- NOTE | 2019-04-16 15:20 | PT.IIE ---
Current Diagnoses Unspecified hydronephrosis (04/15/19) Surgical History (Last Reviewed 04/14/19 @ 19:52 by Matteo Jenkins DO) Hx of hand surgery (Resolved 2001) Medical History (Last Reviewed 04/14/19 @ 19:52 by Matteo Jenkins DO) No chronic problems (Resolved) Physical Therapy Inpatient Evaluation/Re-Eval M1 PT/OT-IP Prior Functional Status Start: 04/16/19 16:06 Freq: NEEDED Status: Active Protocol: Document 04/16/19 15:20 AB (Rec: 04/16/19 16:32 AB [id number]) Medical Review Prior Functional Status Medical History Reviewed Yes Communication able to make needs known Mobility and Gait pt stated that he is independent with all mobilities and ambulation without AD. stated that he is able to walk ~ 5-10 miles a day and also bike around town Social History Household Members none Living Arrangements Mobile home Number of Stairs To Enter/Railing? Pt lives on his boat: has an 8 ft ladder (~ 8 steps) up to climb into his boat and then a step down after that; Has 3 steps down with R rail descending to his kitchen Additional Social History Comment Stated that he goes to the [facility] to shower ; uses either the toilet in the [facility] or the outhouse near his boat; stated that his boat is not in the water but is parked on a harp so is not too unsteady but still is slippery due to water condensation M2 PT-IP Current Condition Start: 04/16/19 16:06 Freq: NEEDED Status: Active Protocol: Document 04/16/19 15:20 AB (Rec: 04/16/19 16:32 AB [id number]) Physical Therapy Current Condition Current Condition Evaluation Date 04/16/19 Treatment Diagnosis CHF; acute kidney injury; difficulty in walking Onset Date 04/15/19 Precautions Other Precautions falls M3 PT-IP Subjective Start: 04/16/19 16:06 Freq: NEEDED Status: Active Protocol: Document 04/16/19 15:20 AB (Rec: 04/16/19 16:32 AB [id number]) Subjective Physical Therapy Visit Type Type Initial Evaluation Visit Start Time 15:20 Visit Stop Time 15:59 Total Visit Minutes 39 Number of SORT MANAGER Visits 0 Physical Therapy Visit Comments Patient Comments pt agreeable to do PT M4 PT-IP Mobility and Gait Start: 04/16/19 16:06 Freq: NEEDED Status: Active Protocol: Document 04/16/19 15:20 AB (Rec: 04/16/19 16:32 AB [id number]) PT-Bed Mobility Assessment Supine to Sit Supine to Sit Independent Sit to Supine Sit to Supine Independent PT-Transfer Assessment Sit to and From Stand Sit to and from Stand Contact Guard Assistance Equipment Transfer Assistive Device Gait Belt,Front Wheeled Walker Orthotic/Prosthetic Devices or Brace: No Comments Mobility Comments BP supine: 122/81; completed supine to sit modified independent; pt was able to sit on EOB SBA. completed sit to stand CGA and ambulated in room using FWW 35 ft. assessed ambulation without AD requiring CGA to min A and cues ~ 20 ft. pt with LOB to the L during ambulation without AD requires min A and cues to restabilize. presents unsteadiness towards end of ambulation. pt requested to go back to bed afterwards. completed sit to supine modified independent . positioned in bed. call light and table placed witin reach. Gait Assessment Gait Gait Assistance Required: Contact Guard Assist,Minimum Assistance Distance (Feet) 35 Able to Maintain Weight Bearing Status Yes During Gait Assistive Devices Assistive Device None,Gait Belt,Front Wheeled Walker Orthotic/Prosthetic Devices or Brace: No Factors Limiting Gait Function Factors Limiting Gait Function Decreased Activity Tolerance, Decreased Strength,Poor Balance,Poor Safety Awareness Comments Gait Comments pls refer to mobility section for details PT-Balance Assessment Sitting Balance and Reactions Static Sitting Balance Ability Good Dynamic Sitting Balance Ability Good Standing Balance and Reactions Static Standing Balance Ability Fair Dynamic Standing Balance Ability Fair Device Used using FWW M5 PT-IP Objective Assessments Start: 04/16/19 16:06 Freq: NEEDED Status: Active Protocol: Document 04/16/19 15:20 AB (Rec: 04/16/19 16:32 AB [id number]) Orientation Orientation/Cognition Level of Alertness Alert Orientation Name,Place,Situation Gross Range of Motion Lower Extremity ROM Assessment Within Functional Limits Strength Lower Extremity Strength Assessment Within Functional Limits Coordination Assessment Gross Coordination Gross Coordination WNL Sensation Assessment Sensation Gross Sensation WNL Muscle Tone Muscle Tone WNL Yes M6 PT-IP Treatment Start: 04/16/19 16:06 Freq: NEEDED Status: Active Protocol: Document 04/16/19 15:20 AB (Rec: 04/16/19 16:32 AB [id number]) Physical Therapy Treatment Education Education Provided Safety M7 PT-IP Assessment and Plan Start: 04/16/19 16:06 Freq: NEEDED Status: Active Protocol: Document 04/16/19 15:20 AB (Rec: 04/16/19 16:32 AB [id number]) PT Summary Assessment and Plan Potential Rehabilitation Potential Good Status of Condition at Evaluation Stable Summary Impairments Pain,ROM,Strength,Balance, Coordination,Sensation,Tone, Cognition,Bed Mobility, Transfers,Gait,Activity Tolerance Assessment Summary pt requiring CGA to min A with ambulation without AD. recommending use of FWW at this time especially for long distance ambulation. educated pt and pt understood recommendation. will continue to work on standing balance and ambulation during hospital stay d/c plan depending on progress. pt may benefit from outpt PT/cardiopulmo rehab. Goals Transfer Goal Independent,Cane,Front Wheeled Walker Gait Goal Independent,Cane,Front Wheel Walker Gait Distance 300 Other Goals LTG: improve ambulation without AD 300 ft I pt to be able to go up ~ 8 steps without AD SBA Days to Meet Goals 10 Frequency of Treatment Frequency Of Treatment Once a Day Treatment Plan Physical Therapy Treatment Plan Bed Mobility Training,Transfer Training,Gait Training, Therapeutic Exercise,Balance Retraining,Discharge Planning, Neuromuscular Re-ed, Coordination Retraining Recommendations To Nursing Amount of Assist Needed 1 Person Assist Discharge Recommendations PT Discharge Recommendations Home,Outpatient PT Equipment Needed for Home Before FWW/SPC if not safe without AD Discharge
[2019-04-16 15:41] LABS: Procalcitonin 0.22 ng/mL (<0.5)
--- NOTE | 2019-04-16 18:58 | PC.NURSE ---
Addendum entered by Marija Hammond R.N. 04/16/19 21:14: 2100 - Review hematuria, recent labs and heparin order with Hospitalist. Continue as ordered. Pt talks rapidly and frequently about L and I case. State that stress made me sick. Discussed self care and dx education. Pt verbalizes understanding, however frequently redirects conversation away for healthcare education topics. Original Note: 1899 - Pt resting in bed. Denies pain. Discussed diagnosis, medication and management. Pt with questions r/t discharge. Pt feels that he can not return to his boat at this time. That's just not a good situation. Pt reports that the room is cold and the material smells. Pt states that he use to live in his jeep for 4 years. Pt denies out patient resources for assistance and support. Pt repeatedly mentions lawsuit with [employer] in [place] r/t a fall. Pt with lipoma-like area to right lateral back, state that has been present since his fall. Educated to discharge planning, care management, therapy recommendations and physician plan for discharge. Pt calm and cooperative. Reinforced safety and call light use. Call light in reach.
[2019-04-16] MEDS: DOCUSATE 100 MG CAPSULE PO (20:51)
[2019-04-16] MEDS: ATORVASTATIN 20 MG TABLET 40 MG PO (20:51)
--- NOTE | 2019-04-16 23:45 | PC.NURSE ---
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
[2019-04-17] VITALS (12 sets, daily range): BP systolic 120–136; BP diastolic 66–80; PULSE 90–100; RESP 16–19; TEMP 36.3–37.6; O2SAT 95–98
[2019-04-17 05:04] LABS: Add Manual Diff / Slide Review NO; Basophils Absolute Auto 100 /uL (0-100); Basophils Percent Auto 0.8 % (0-2); Eosinophils Absolute Auto 100 /uL (0-450); Eosinophils Percent Auto 1.6 % (2-4); Hemoglobin 10.6 g/dL (13.5-17.5); Lymphocytes Absolute Auto 900 /uL (1100-4500); Lymphocytes Percent Auto 10.8 % (25-40); Mean Corpuscular HGB Conc 33.3 % (30-36); Mean Corpuscular Hemoglobin 27.7 PG (26-34); Mean Corpuscular Volume 83.2 fL (80-100); Monocytes Absolute Auto 1000 /uL (0-900); Neutrophils Absolute Auto 6500 /uL (1500-7000); Neutrophils Percent Auto 74.8 % (50-75); Platelet Count 133 X10^3/uL (150-400); Red Blood Cell Count 3.84 X10^6/uL (4.5-5.9); White Blood Cell Count 8.7 X10^3/uL (4.5-11.0)
[2019-04-17 05:09] LABS: BUN Creatinine Ratio 19.6 (6-22); Blood Urea Nitrogen 55 mg/dL (9-20); Carbon Dioxide 27 mmol/L (22-32); Chloride 99 mmol/L (98-107); Estimated Glomerular Filt Rate 22.5 mL/min (>60); Glucose 112 mg/dL (80-110); HEMOLYSIS < 15 (0-50); Magnesium 1.9 mg/dL (1.6-2.3); Potassium 3.3 mmol/L (3.4-5.1); Sodium 138 mmol/L (137-145)
--- NOTE | 2019-04-17 07:45 | P.PN_ITS ---
Subjective Subjective Date Patient Seen: 04/17/19 Interval history: Joel Mishra is a 68-year-old male with no known past medical history who presented with progressive worsening shortness of breath, likely acute on chronic and acutely worsening over the past 4 days prior to admission, but difficult to tell as the patient is a very poor historian. The patient is resting in bed comfortably. He complains of some discomfort with the Bradshaw catheter when he feels like he needs to urinate and Valsalvas. He also reports some mild epistaxis with picking and blowing of his nose. Recommended he does not bear down when he has the sensation to urinate and does not pick or overly blow is nose. He has no other complaints and denies headache, chest pain or pressure, shortness of breath, dyspnea on exertion, abdominal pain, nausea, vomiting, fever, chills, diarrhea or constipation. He is voiding via Bradshaw catheter and eliminating without difficulty. He continues to have shelby hematu yoly likely due to irritation of prostate/BPH with catheter and trauma with the catheter insertions. Of note, he reports he regularly performs ?anal douching? or enemas with a shower hose for which I also recommended he discontinue and implement a regular bowel regimen if needed and have a preventative colonoscopy for which he is 20 years past due. He is up ambulating with assistance. Exam Vital Signs (past 8 hours): - 04/17/19 00:00 04/17/19 03:00 04/17/19 04:00 Temperature 98.0 F Pulse Rate 90 Respiratory Rate 16 Blood Pressure 129/66 Pulse Oximetry 96 96 96 Oxygen Delivery Method Room Air Oxygen Flow Rate 0 Narrative Exam Narrative: General: Elderly male sitting in bedside chair and in no acute distress, appears younger than stated age, well-developed, well-nourished, appropriately interactive. HEENT: Normocephalic, atraumatic. External ears without defect. Pupils equal, round, and reactive to light. Anicteric sclerae, moist conjunctivae, and no lid lag. Neck: Supple with full range of motion. No jugular venous distension present. No lymphadenopathy or thyromegaly. Cardiovascular: Regular rhythm, mildly tachycardic, without murmurs, rubs, or gallops appreciated. Pulmonary: Clear to auscultation bilaterally and diminished at bilateral bases without crackles, wheezes, or rhonchi. Normal respiratory effort with no use of accessory muscles. Abdomen: Soft, bowel sounds present, nontender, nondistended. Left-sided flank tenderness resolved. No hepatosplenomegaly or masses appreciated. Extremities: No clubbing, cyanosis, or edema. Skin: Normal temperature, turgor, and texture; no rash, ulcers, or subcutaneous nodules appreciated. Neurological: Cranial nerves grossly intact. Psychiatric: Normal mood and affect. Appears alert and oriented to person, place, and time. Objective Labs Result Diagrams: 04/17/19 04:30 04/17/19 04:30 Labs: Laboratory Results - last 24 hr 04/16/19 04/16/19 04/16/19 04:55 04:55 08:30 WBC RBC Hgb Hct MCV MCH MCHC RDW Plt Count Neut % (Auto) Lymph % (Auto) [place] % (Auto) Eos % (Auto) Baso % (Auto) Neut # (Auto) Lymph # (Auto) [place] # (Auto) Eos # (Auto) Baso # (Auto) Sodium Potassium Chloride Carbon Dioxide BUN Creatinine Estimated GFR BUN/Creatinine Ratio Glucose Hemoglobin A1c 5.9 Calcium Magnesium Procalcitonin 0.22 Urine Color Red Urine Appearance Sl cloudy Urine pH 8.0 Ur Specific [place] <=1.005 Urine Protein 2+ H Urine Glucose (UA) Negative Urine Ketones Negative Urine Occult Blood 3+ H Urine Nitrate Negative Urine Bilirubin Negative Urine Urobilinogen 0.2 Ur Leukocyte Esterase 3+ H Urine RBC >100/hpf Urine WBC >100/hpf H Urine Bacteria Few (2-10) H Ur Culture Indicated? Specimen cultured 04/17/19 04/17/19 04:30 04:30 WBC 8.7 RBC 3.84 L Hgb 10.6 L Hct 32.0 L MCV 83.2 MCH 27.7 MCHC 33.3 RDW 14.0 Plt Count 133 L Neut % (Auto) 74.8 Lymph % (Auto) 10.8 L [place] % (Auto) 12.0 Eos % (Auto) 1.6 L Baso % (Auto) 0.8 Neut # (Auto) 6500 Lymph # (Auto) 900 L [place] # (Auto) 1000 H Eos # (Auto) 100 Baso # (Auto) 100 Sodium 138 Potassium 3.3 L Chloride 99 Carbon Dioxide 27 BUN 55 H Creatinine 2.80 H Estimated GFR 22.5 L BUN/Creatinine Ratio 19.6 Glucose 112 H Hemoglobin A1c Calcium 9.0 Magnesium 1.9 Procalcitonin Urine Color Urine Appearance Urine pH Ur Specific [place] Urine Protein Urine Glucose (UA) Urine Ketones Urine Occult Blood Urine Nitrate Urine Bilirubin Urine Urobilinogen Ur Leukocyte Esterase Urine RBC Urine WBC Urine Bacteria Ur Culture Indicated? Assessment & Plan Assessment & Plan narrative: Joel Mishra is a 68-year-old male with no known past medical history who presented with progressive worsening shortness of breath, likely acute on chronic and acutely worsening over the past 4 days prior to admission, but difficult to tell as the patient is a very poor historian. 1. Acute obstructive uropathy with bilateral hydronephrosis, likely secondary to BPH, present on admission. Resolving. -Patient reports difficulty urinating, alternating with episodes of incontin ence. Likely indicative of overflow incontinence in setting of chronic obstruction. -Initial PVR demonstrated urinary retention of 600 cc and bedside ultrasound showed bilateral hydronephrosis. Bradshaw catheter was placed with good urine output. A renal ultrasound demonstrated bilateral hydronephrosis, but no catheter visualized within the urinary bladder. Nursing attempted to advance/manipulate the Bradshaw catheter, however, it was still not visualized on ultrasound and Bradshaw catheter was removed. There was some concern for possible urethral obstruction, therefore, a CT abdomen and pelvis without contrast was performed and demonstrated severe bilateral hydronephrosis and mild to moderate bilateral perinephric fat stranding, no discrete mass lesions or stones visualized within the ureters to explain hydronephrosis and hydroureter. Replaced Bradshaw catheter and repeat renal ultrasound demonstrated significant improvement in bilateral hydronephrosis in this patient who has now had a Bradshaw catheter placed within the central portion of the bladder with almost completely emptying of the bladder. -Started tamsulosin 0.4 mg daily. -Previous provider discussed the case with on-call Urology at the [facility], Dr. Torres, who agrees with current management and would anticipate acute renal failure should begin to resolve after replacement of Bradshaw catheter and that hydronephrosis can take a few weeks to resolve, especially if chronic in nature. Recommended leaving Bradshaw catheter in place and follow-up with urology as an outpatient. -Patient appears to have mild post-obstructive diuresis and will monitor hemodynamics and electrolytes closely and replete as necessary. Will hold off on starting furosemide for now. 2. Acute UTI, present on admission. Active. -Patient endorses urinary tract/BPH symptoms including dysuria, urinary frequency, urinary hesitancy, split stream, urinary dribbling and incomplete bladder emptying. -Urinalysis appears grossly infected. -Started renally dosed levofloxacin 750 every 48 hours pending urine culture identification and sensitivities. 3. Acute kidney injury on probable chronic kidney disease stage IV, present on admission. Active. -Unclear baseline creatinine. Initial creatinine 2.8. Creatinine trended up to 3.4 likely secondary to obstructive uropathy and congestive nephropathy. Creatinine is now trending down since his obstructive uropathy has been resolved and creatinine is currently 2.8. He likely has a component of CKD but has not received any outpatient care up to this point, therefore, his baseline renal function is unknown. Patient appears to have mild post-obstructive diuresis and will monitor hemodynamics and electrolytes closely and replete as necessary. Will hold off on starting furosemide for now and will continue to monitor his creatinine until there is significant improvement and stability. May consider further diuresis in 1-2 days. -Avoid nephrotoxic agents. -Continue Bradshaw catheter management and plan for outpatient urology follow-up as above. -Continue to monitor renal function daily. 4. Newly diagnosed systolic congestive heart failure EF 25-30%, acuity unknown, present on admission. Active. -Patient presented with progressive worsening dyspnea on exertion leading to shortness of breath at rest and orthopnea x 4 days. Patient had JVD, bibasilar crackles, bilateral small pleural effusions, and trace peripheral edema on initial exam. He has not been hypoxemic. -Echocardiogram demonstrated mildly enlarged left ventricle with severely reduced systolic function (EF 25-30%), right ventricle is mildly dilated and systolic function is mildly reduced, left atrium is severely dilated, mild to moderate tricuspid regurgitation and severe mitral regurgitation. Etiology possibly secondary to enlarged LV as no obvious prolapse or flail leaflet noted and recommend to consider DELONTE to rule out primary mitral regurgitation. -Received furosemide 40 mg IV x1 in ED. Patient was then diuresed on admission and received additional furosemide 40 mg IV every 12 hours x 2 doses. Diuresis was then discontinued due to obstructive uropathy and worsening renal function. The patient's bibasilar crackles and peripheral edema have resolved. Patient appears to have mild post-obstructive diuresis and will monitor hemodynamics and electrolytes closely and replete as necessary. Will hold off on starting furosemide for now and will continue to monitor his creatinine until there is significant improvement and stability. May consider further diuresis in 1-2 days. -Started metoprolol succinate 25 mg daily. Will hold off on starting ACEI or ARB due to acute kidney injury. -Continue strict I&O and daily weights. Net - 5.3L. -Continue heart healthy low-sodium diet with fluid restriction of 1.5 L daily. -Continue to monitor renal function and electrolytes daily and replete as necessary. Goal K > 4.0 and Mg 2.0. -Plan for stress test tomorrow as patient has had intermittent chest pain, freda vated troponin, new onset CHF and is high risk with untreated/undiagnosed likely long standing hypertension, hyperlipidemia, and prediabetes. 5. Newly diagnosed hypertension, likely chronic, present on admission. Active. -Started metoprolol succinate 25 mg daily to treat newly diagnosed CHF, as well as, hypertension. 6. Newly diagnosed hyperlipidemia, likely chronic, present on admission. Acti ve. -Fasting lipid panel demonstrated poor lipid control: Total cholesterol 217, Triglycerides 101, LDL 161 (goal <100), HDL 36. -Started atorvastatin 40 mg daily at bedtime. 7. Newly diagnosed prediabetes, present on admission. Active. -Hemoglobon A1C 5.9%. -Educated the patient regarding diabetes mellitus and lifestyle modification including diet and exercise. -Ordered clinic licensed practical nurse consult for DM education and patient reports intentional weight loss of 20 lbs, pending. 8. Acute hypokalemia, not present on admission. Active. -Secondary to post-obstructive diuresis and chemical diuresis. -Potassium level trended down to 3.3. Continue to replete with potassium chloride 40 mEq PO now on 3rd dose. -Continue to monitor potassium level daily and replete as necessary. 9. Elevated troponin, likely secondary to demand ischemia from volume overload from CHF, present on admission. Resolved. -Likely secondary to volume overload from newly diagnosed systolic congestive heart failure and obstructive uropathy. Troponin has down trended and no need to further trend. EKG is nonischemic. Repeat EKG was further unchanged. -Received 324 mg of aspirin x1 in ED. Continue aspirin 81 mg daily. -Plan for stress test tomorrow as patient has had intermittent chest pain, elevated troponin, new onset CHF and is high risk with untreated/undiagnosed likely long standing hypertension, hyperlipidemia, and prediabetes. Code status: Full Code DVT: SQ Heparin Disposition: Patient likely to discharge to [facility] facility in 2-3 days for rehabilitation and continued medical management of complex co- morbidities once renal function has improved and he has been adequately diuresed.
--- NOTE | 2019-04-17 08:00 | DI.RAD.S_ITS ---
PROCEDURE: XR CHEST 1V INDICATIONS: Assess diuresis for CHF and b/l effusions TECHNIQUE: One view of the chest was acquired. COMPARISON: [facility], CT, CT ABDOMEN PELVIS WO CON, 04/15/2019, 8:42. [facility], CR, XR CHEST 2V, 04/14/2019, 12:53. FINDINGS: Surgical changes and devices: None. Lungs and pleura: Lungs are clear. No pneumothorax is seen. There is minimal blunting of the right costophrenic angle. Mediastinum: Mediastinal contours appear normal. Heart size is normal. Bones and chest wall: No suspicious bony lesions. Overlying soft tissues appear unremarkable. IMPRESSION: Minimal blunting of the right costophrenic angle is seen, which may represent a small residual pleural effusion or scarring. This study is improved compared to 04/14/19. Dictated by: Renato Henriquez M.D. on 04/17/2019 at 7:25 Approved by: Renato Henriquez M.D. on 04/17/2019 at 7:26
[2019-04-17] MEDS: DOCUSATE 100 MG CAPSULE PO ×2 (08:02→20:38)
[2019-04-17] MEDS: METOPROLOL ER 25 MG TABLET PO ×2 (08:03→11:06)
[2019-04-17] MEDS: TAMSULOSIN 0.4 MG CAPSULE PO (08:03)
[2019-04-17] MEDS: FERROUS GLUCONATE 324 MG TABLET PO (08:03)
[2019-04-17] MEDS: POTASSIUM CHLORIDE 20 MEQ TAB 40 MEQ PO ×2 (08:03→17:24)
[2019-04-17] MEDS: HEPARIN 5,000 UNIT/ML VIAL 5000 UNIT SUBCUT ×2 (08:03→20:38)
[2019-04-17] MEDS: POLYETHYLENE GLYCOL 3350 17 GM POWD.PACK PO (08:03)
[2019-04-17] MEDS: ASPIRIN EC 81 MG TABLET PO (08:03)
--- NOTE | 2019-04-17 10:37 | PT.IPTN ---
Current Diagnoses Unspecified hydronephrosis (04/15/19) Physical Therapy Treatment Note M2 PT-IP Current Condition Start: 04/16/19 16:06 Freq: NEEDED Status: Active Protocol: Document 04/16/19 15:20 AB (Rec: 04/16/19 16:32 AB [id number]) Physical Therapy Current Condition Current Condition Evaluation Date 04/16/19 Treatment Diagnosis CHF; acute kidney injury; difficulty in walking Onset Date 04/15/19 Precautions Other Precautions falls M3 PT-IP Subjective Start: 04/16/19 16:06 Freq: NEEDED Status: Active Protocol: Document 04/17/19 10:13 AW (Rec: 04/17/19 10:37 AW [id number]) Subjective Physical Therapy Visit Type Type Treatment Note Visit Start Time 09:37 Visit Stop Time 09:58 Total Visit Minutes 21 Number of SOLOIST DANCER Visits 0 Physical Therapy Visit Comments Patient Comments Pt feeling good and willing to participate with therapy Therapy Pain Assessment Pain When Pain Assessed During Mobility Pain Present Pain Present Denied Pain M4 PT-IP Mobility and Gait Start: 04/16/19 16:06 Freq: NEEDED Status: Active Protocol: Document 04/17/19 10:13 AW (Rec: 04/17/19 10:37 AW [id number]) PT-Bed Mobility Assessment Supine to Sit Supine to Sit Independent Scooting Scooting to Edge of Bed Independent PT-Transfer Assessment Sit to and From Stand Sit to and from Stand Standby Assistance Equipment Transfer Assistive Device Gait Belt,Front Wheeled Walker Orthotic/Prosthetic Devices or Brace: No Transfers Transfer Destination Chair Transfer Technique pt ambulated with FWW Transfer Ability Level of Assist Standby Assistance Comments Mobility Comments Pt completed supine to sit without need for assist. Sit to stand and transfer to chair after gait training required no more than SBA. Pt completed 5 Time Sit to Stand with arms crossed over chest in 13.8 seconds. Gait Assessment Gait Gait Assistance Required: Contact Guard Assist Distance (Feet) 400 Able to Maintain Weight Bearing Status Yes During Gait Assistive Devices Assistive Device None,Gait Belt,Front Wheeled Walker Orthotic/Prosthetic Devices or Brace: No Gait Deviations General Gait Pattern Decreased Stride Length, Decreased Feet Clearance, Narrow Based Gait Factors Limiting Gait Function Factors Limiting Gait Function Decreased Activity Tolerance, Decreased Strength,Poor Balance,Poor Safety Awareness Comments Gait Comments Pt ambulated ~300 feet using FWW SBA with good attention to obstacle navigation and able to turn head, scan environment safely. Pt walked an additional 100 feet without assistive device, requiring CGA to recover from multiple minor losses of balance ( mostly laterally). Gait without AD was notable for further decreased step length and foot clearance. Stair Climbing Assessment Evaluation Level of Assist On Stairs Standby Assistance,Contact Guard Assistance Devices Stair Climbing Assistive Devices Left Railing,Right Railing Technique/Endurance Stair Climbing Direction Ascend and Descend Stair Climbing Technique Step Over Step Number of Steps Climbed 3 Stair Climbing Set # Repetitions (reps) 3 Comments Stair Climbing Comments Pt used bilateral rails to navigate stairs SBA to CGA. Unable to simulate ladder climbing in this setting. PT-Balance Assessment Sitting Balance and Reactions Static Sitting Balance Ability Good Dynamic Sitting Balance Ability Good Standing Balance and Reactions Static Standing Balance Ability Fair Dynamic Standing Balance Ability Fair Device Used using FWW Functional Assessments Functional Tests 5 Times Sit to Stand 13.8 M5 PT-IP Objective Assessments Start: 04/16/19 16:06 Freq: NEEDED Status: Active Protocol: Document 04/16/19 15:20 AB (Rec: 04/16/19 16:32 AB [id number]) Orientation Orientation/Cognition Level of Alertness Alert Orientation Name,Place,Situation Gross Range of Motion Lower Extremity ROM Assessment Within Functional Limits Strength Lower Extremity Strength Assessment Within Functional Limits Coordination Assessment Gross Coordination Gross Coordination WNL Sensation Assessment Sensation Gross Sensation WNL Muscle Tone Muscle Tone WNL Yes M6 PT-IP Treatment Start: 04/16/19 16:06 Freq: NEEDED Status: Active Protocol: Document 04/17/19 10:13 AW (Rec: 04/17/19 10:37 AW [id number]) Physical Therapy Treatment Education Education Provided Safety Other Treatments Other Treatment Performed Educated pt on use of FWW which he stated he could do for longer bouts of ambulation . He notes that he is safer on his boat since he is always close to something to hold/ touch for balance. M7 PT-IP Assessment and Plan Start: 04/16/19 16:06 Freq: NEEDED Status: Active Protocol: Document 04/17/19 10:13 AW (Rec: 04/17/19 10:37 AW [id number]) PT Summary Assessment and Plan Potential Rehabilitation Potential Good Status of Condition at Evaluation Stable Summary Impairments Pain,ROM,Strength,Balance, Coordination,Sensation,Tone, Cognition,Bed Mobility, Transfers,Gait,Activity Tolerance Assessment Summary Pt continues to require CGA for ambulation without an assistive device with pt demonstrating multiple lateral losses of balance. Ambulation with FWW required no more than SBA. We are unable to simulate ladder climbing in this setting such as pt needs to do to access his boat. 5 Time Sit to Stand score of 13. 8 is higher than age-adjusted norms for the 70-79 yo population and significantly higher than norms for the 60- 69 yo population (Dominick, 2007), placing this pt in a higher risk category for falls . Given this pt's unusual living situation, it is difficult to assess his safety at home. SNF rehab would certainly be justifiable to address balance deficits and safety in his home environment , but if he discharges back to his boat, would recommend outpatient PT. Goals Transfer Goal Independent,Cane,Front Wheeled Walker Gait Goal Independent,Cane,Front Wheel Walker Gait Distance 300 Other Goals LTG: improve ambulation without AD 300 ft I pt to be able to go up ~ 8 steps without AD SBA Days to Meet Goals 10 Frequency of Treatment Frequency Of Treatment Once a Day Treatment Plan Physical Therapy Treatment Plan Bed Mobility Training,Transfer Training,Gait Training, Therapeutic Exercise,Balance Retraining,Discharge Planning, Neuromuscular Re-ed, Coordination Retraining Other Recommendations and Next Treatment - consider FGA without Focus assistive device - balance - stairs Recommendations To Nursing Amount of Assist Needed Standby Assistance Discharge Recommendations PT Discharge Recommendations Home,SNF Rehab,Outpatient PT Equipment Needed for Home Before FWW/SPC if discharge to home Discharge and not safe without AD
--- NOTE | 2019-04-17 10:40 | CM.DPC ---
Addendum entered by Kayla Florez LPN 04/17/19 11:01: Met with pt again as planned and confirmed his plan for [facility]. Pt says Oh yes, that is the plan. Thank you. PASRR/completed. Original Note: DCP: continued: Case discussed in Team Rounds. Dr. Ramirez plans stress test tomorrow and states if stable for snf setting he will likely be ready in 2-3 days. PT is seeing pt; OT now is ordered. [facility] will be [facility] primarily for medical management including engle catheter and overall medical stability before he will be able to return to his rather [facility] [place] the [facility]. Spoke with Katelynn/[facility] as had not heard back from Gaby on Thursday. She has reviewed case up to this point and states the referral is expected with a tentative admission Thursday or >. Will update pt now. PASRR: will do today in prep for the anticipated snf admission.
--- NOTE | 2019-04-17 17:26 | PC.NURSE ---
[id number] -Pt up and ambulate around the unit several laps. Initial began with fww but soon reported that walker was slowing pace. Pt left walker and able to continue ambulation with only CGA. Steady gait. Denies weakness or Fatigue. Set up in chair for meal. Call light in reach.
[2019-04-17] MEDS: ATORVASTATIN 20 MG TABLET 40 MG PO (20:38)
[2019-04-18] VITALS (10 sets, daily range): BP systolic 111–143; BP diastolic 66–79; PULSE 87–99; RESP 16–20; TEMP 36.7–37.3; O2SAT 97–99; BMI 21.4
[2019-04-18 05:27] LABS: Add Manual Diff / Slide Review SLIDE REVIEW; Basophils Absolute Auto 0 /uL (0-100); Basophils Percent Auto 0.4 % (0-2); Eosinophils Absolute Auto 300 /uL (0-450); Eosinophils Percent Auto 3.9 % (2-4); Hematocrit 32.4 % (41-53); Hemoglobin 10.7 g/dL (13.5-17.5); Lymphocytes Absolute Auto 1200 /uL (1100-4500); Lymphocytes Percent Auto 15.5 % (25-40); Mean Corpuscular HGB Conc 33.1 % (30-36); Mean Corpuscular Hemoglobin 27.7 PG (26-34); Mean Corpuscular Volume 83.5 fL (80-100); Monocytes Absolute Auto 900 /uL (0-900); Monocytes Percent Auto 11.3 % (3-14); Neutrophils Absolute Auto 5400 /uL (1500-7000); Neutrophils Percent Auto 68.9 % (50-75); Platelet Count 144 X10^3/uL (150-400); Red Blood Cell Count 3.88 X10^6/uL (4.5-5.9); Red Cell Distribution Width 14.1 % (11.6-14.8); White Blood Cell Count 7.8 X10^3/uL (4.5-11.0)
[2019-04-18 05:41] LABS: BUN Creatinine Ratio 20.9 (6-22); Blood Urea Nitrogen 48 mg/dL (9-20); Calcium 9.1 mg/dL (8.4-10.2); Carbon Dioxide 25 mmol/L (22-32); Chloride 105 mmol/L (98-107); Estimated Glomerular Filt Rate 28.3 mL/min (>60); Glucose 117 mg/dL (80-110); HEMOLYSIS < 15 (0-50); Potassium 3.8 mmol/L (3.4-5.1); Sodium 141 mmol/L (137-145)
[2019-04-18 05:48] LABS: RBC Morphology Normal Morphology
--- NOTE | 2019-04-18 06:10 | PC.NURSE ---
Cargo Surveyor Note-Patient was able to rest, says he slept some Oriented x4 when awake, impulsive and fidgety. SR/ST, rate mostly 80s-90s, occasionally up to 105 with activity. Showered in am, denies shortness of breath. SpO2 98% on RA, lung sounds CTA. Bradshaw output 1150ml hematuria with occasional clots. 200ml fluid restriction for night.
--- NOTE | 2019-04-18 08:02 | PM.PN.1 ---
Subjective Subjective Date Patient Seen: 04/18/19 Interval history: Joel Mishra is a 68-year-old male with no known past medical history who presented with progressive worsening shortness of breath, likely acute on chronic and acutely worsening over the past 4 days prior to admission, but difficult to tell as the patient is a very poor historian. The patient is resting in bed comfortably. The patient has odd thinking and is circumstantial in regard to his train of thought. Occupational therapy perform SLUMS for which the patient scored 11/30 indicative of oalw-gr-oduqslnu dementia. He continues to have some mild discomfort with the Bradshaw catheter. He has no other complaints and denies headache, chest pain or pressure, shortness of breath, dyspnea on exertion, abdominal pain, nausea, vomiting, fever, chills, diarrhea or constipation. He is voiding via Bradshaw catheter and eliminating without difficulty. He continues to have shelby hematuria likely due to irritation of prostate/BPH with catheter and trauma with the catheter insertions. He is up ambulating with assistance. Continue physical and occupational therapy. Exam Vital Signs (past 8 hours): - 04/18/19 04:52 04/18/19 04:55 Temperature 98.6 F Pulse Rate 89 Respiratory Rate 16 Blood Pressure 127/79 Pulse Oximetry 99 99 Oxygen Delivery Method Room Air Oxygen Flow Rate 0 Narrative Exam Narrative: General: Elderly male sitting in bedside chair and in no acute distress, appears younger than stated age, well-developed, well-nourished, appropriately interactive. HEENT: Normocephalic, atraumatic. External ears without defect. Pupils equal, round, and reactive to light. Anicteric sclerae, moist conjunctivae, and no lid lag. Neck: Supple with full range of motion. No jugular venous distension. No lymphadenopathy or thyromegaly. Cardiovascular: Regular rhythm and rate without murmurs, rubs, or gallops appreciated. Pulmonary: Clear to auscultation bilaterally and diminished at bilateral bases without crackles, wheezes, or rhonchi. Normal respiratory effort with no use of accessory muscles. Abdomen: Soft, bowel sounds present, nontender, nondistended. Left-sided flank tenderness resolved. No hepatosplenomegaly or masses appreciated. Genitourinary: Bradshaw catheter in place with gross hematuria. Extremities: No clubbing, cyanosis, or edema. Skin: Normal temperature, turgor, and texture; no rash, ulcers, or subcutaneous nodules appreciated. Neurological: Cranial nerves grossly intact. Psychiatric: Normal mood and affect. Circumstantial train of thought. Appears alert and oriented to person, place, and time. [id number]-pn-[id number] dementia with short-term memory recall deficit. Objective Labs Result Diagrams: 04/18/19 04:40 04/18/19 04:40 Labs: Laboratory Results - last 24 hr 04/18/19 04/18/19 04:40 04:40 WBC 7.8 RBC 3.88 L Hgb 10.7 L Hct 32.4 L MCV 83.5 MCH 27.7 MCHC 33.1 RDW 14.1 Plt Count 144 L Neut % (Auto) 68.9 Lymph % (Auto) 15.5 L Nicholas % (Auto) 11.3 Eos % (Auto) 3.9 Baso % (Auto) 0.4 Neut # (Auto) 5400 Lymph # (Auto) 1200 Nicholas # (Auto) 900 Eos # (Auto) 300 Baso # (Auto) 0 Plt Morphology Comment RBC Morphology Normal morphology Sodium 141 Potassium 3.8 Chloride 105 Carbon Dioxide 25 BUN 48 H Creatinine 2.30 H Estimated GFR 28.3 L BUN/Creatinine Ratio 20.9 Glucose 117 H Calcium 9.1 Assessment & Plan Assessment & Plan narrative: Joel Mishra is a 68-year-old male with no known past medical history who presented with progressive worsening shortness of breath, likely acute on chronic and acutely worsening over the past 4 days prior to admission, but difficult to tell as the patient is a very poor historian. 1. Acute obstructive uropathy with bilateral hydronephrosis, likely secondary to BPH, present on admission. Resolved. -Patient reports difficulty urinating, alternating with episodes of incontinence. Likely indicative of overflow incontinence in setting of chronic obstruction. -Initial PVR demonstrated urinary retention of 600 cc and bedside ultrasound showed bilateral hydronephrosis. Bradshaw catheter was placed with good urine output. A renal ultrasound demonstrated bilateral hydronephrosis, but no catheter visualized within the urinary bladder. Nursing attempted to advance/manipulate the Bradshaw catheter, however, it was still not visualized on ultrasound and Bradshaw catheter was removed. There was some concern for possible urethral obstruction, therefore, a CT abdomen and pelvis without contrast was performed and demonstrated severe bilateral hydronephrosis and mild to moderate bilateral perinephric fat stranding, no discrete mass lesions or stones visualized within the ureters to explain hydronephrosis and hydroureter. Replaced Bradshaw catheter and repeat renal ultrasound demonstrated significant improvement in bilateral hydronephrosis in this patient who has now had a Bradshaw catheter placed within the central portion of the bladder with almost completely emptying of the bladder. -Started and continue tamsulosin 0.4 mg daily. -Previous provider discussed the case with on-call Urology at the [facility], Dr. Torres, who agrees with current management and would anticipate acute renal failure should begin to resolve after replacement of Bradshaw catheter and that hydronephrosis can take a few weeks to resolve, especially if chronic in nature. Recommended leaving Bradshaw catheter in place and follow-up with urology as an outpatient. -Patient now has post-obstructive diuresis and will continue to monitor hemodynamics and electrolytes closely and replete as necessary. No need for chemical diuresis. 2. Acute UTI ruled out. -Patient endorses urinary tract/BPH symptoms including dysuria, urinary frequency, urinary hesitancy, split stream, urinary dribbling and incomplete bladder emptying. -Urinalysis appeared grossly infected, however, urine culture had no growth. Discontinued antibiotics. 3. Acute kidney injury on probable chronic kidney disease stage IV, present on admission. Acute kidney injury improving. -Unclear baseline creatinine. Initial creatinine 2.8. Creatinine trended up to 3.4 likely secondary to obstructive uropathy and congestive nephropathy. Creatinine is now trending down since his obstructive uropathy has been resolved and creatinine is currently 2.3. He likely has a component of CKD but has not received any outpatient care up to this point, therefore, his baseline renal function is unknown. Patient appears to have mild post-obstructive diuresis and will monitor hemodynamics and electrolytes closely and replete as necessary. Will hold off on starting furosemide for now and will continue to monitor his creatinine until there is significant improvement and stability. May consider further diuresis in 1-2 days. -Avoid nephrotoxic agents. -Continue Bradshaw catheter management and plan for outpatient urology follow-up as above. -Continue to monitor renal function daily. 4. Newly diagnosed systolic congestive heart failure EF 25-30% with exacerbation, acuity unknown, present on admission. Acute exacerbation resolved. -Patient presented with progressive worsening dyspnea on exertion leading to shortness of breath at rest and orthopnea x 4 days. Patient had JVD, bibasilar crackles, bilateral small pleural effusions, and trace peripheral edema on initial exam. He has not been hypoxemic. -Echocardiogram demonstrated mildly enlarged left ventricle with severely reduced systolic function (EF 25-30%), right ventricle is mildly dilated and systolic function is mildly reduced, left atrium is severely dilated, mild to moderate tricuspid regurgitation and severe mitral regurgitation. Etiology possibly secondary to enlarged LV as no obvious prolapse or flail leaflet noted and recommend to consider DELONTE to rule out primary mitral regurgitation. -Received furosemide 40 mg IV x1 in ED. Patient was then diuresed on admission and received additional furosemide 40 mg IV every 12 hours x 2 doses. Diuresis was then discontinued due to obstructive uropathy and worsening renal function. The patient's bibasilar crackles and peripheral edema have resolved. Patient appears to have mild post-obstructive diuresis and will monitor hemodynamics and electrolytes closely and replete as necessary. Will hold off on starting furosemide for now and will continue to monitor his creatinine until there is significant improvement and stability. May consider further diuresis in 1-2 days. -Started and continue metoprolol succinate 50 mg daily. Will hold off on starting ACEI or ARB due to acute kidney injury for now. -Continue strict I&O and daily weights. Net - 6.9L. -Continue heart healthy low-sodium diet with fluid restriction of 1.5 L daily. -Continue to monitor renal function and electrolytes daily and replete as necessary. Goal K > 4.0 and Mg 2.0. -Ordered stress test due to intermittent chest pain (none during this hospitalization), elevated troponin, new onset CHF and the patient is high risk with untreated/undiagnosed likely long standing hypertension, hyperlipidemia, and prediabetes, pending. Patient was NPO after midnight. 5. Newly diagnosed hypertension, likely chronic, present on admission. Active. -Started and continue metoprolol succinate 50 mg daily to treat newly diagnosed CHF, as well as, hypertension. 6. Newly diagnosed hyperlipidemia, likely chronic, present on admission. Active. -Fasting lipid panel demonstrated poor lipid control: Total cholesterol 217, Triglycerides 101, LDL 161 (goal <100), HDL 36. -Started atorvastatin 40 mg daily at bedtime. 7. Newly diagnosed prediabetes, present on admission. Active. -Hemoglobon A1C 5.9%. -Educated the patient regarding diabetes mellitus and lifestyle modification including diet and exercise. -Ordered vegetable harvest machine operator consult for DM education and patient reports intentional weight loss of 20 lbs, pending. -Continue diet control with heart healthy/carbohydrate consistent diet. 8. Acute hypokalemia, not present on admission. Resolved. -Secondary to post-obstructive diuresis and chemical diuresis. -Potassium level trended down to 3.3. Continue to replete with potassium chloride 40 mEq PO now on 3rd dose. -Continue to monitor potassium level daily and replete as necessary. 9. Elevated troponin, likely secondary to demand ischemia from volume overload from CHF, present on admission. Resolved. -Likely secondary to volume overload from newly diagnosed systolic congestive heart failure and obstructive uropathy. Troponin has down trended and no need to further trend. EKG is nonischemic. Repeat EKG was further unchanged. -Received 324 mg of aspirin x1 in ED. Continue aspirin 81 mg daily. -Ordered stress test due to intermittent chest pain (none during this hospitalization), elevated troponin, new onset CHF and the patient is high risk with untreated/undiagnosed likely long standing hypertension, hyperlipidemia, and prediabetes, pending. Patient was NPO after midnight. Code status: Full Code DVT: SQ Heparin Disposition: Patient likely to discharge to intermediate facility in1-2 days for rehabilitation and continued medical management of complex co-morbidities once renal function has improved/stabilized and stress test has been completed.
--- NOTE | 2019-04-18 09:31 | PT.IPTN ---
Current Diagnoses Unspecified hydronephrosis (04/15/19) Physical Therapy Treatment Note M2 PT-IP Current Condition Start: 04/16/19 16:06 Freq: NEEDED Status: Active Protocol: Document 04/16/19 15:20 AB (Rec: 04/16/19 16:32 AB [id number]) Physical Therapy Current Condition Current Condition Evaluation Date 04/16/19 Treatment Diagnosis CHF; acute kidney injury; difficulty in walking Onset Date 04/15/19 Precautions Other Precautions falls M3 PT-IP Subjective Start: 04/16/19 16:06 Freq: NEEDED Status: Active Protocol: Document 04/18/19 09:00 LJ (Rec: 04/18/19 09:31 LJ [id number]) Subjective Physical Therapy Visit Type Type Treatment Note Visit Start Time 09:00 Visit Stop Time 09:22 Total Visit Minutes 22 Number of RADIATION ONCOLOGY NURSE Visits 1 Physical Therapy Visit Comments Patient Comments Pt feeling good and willing to participate with therapy Therapy Pain Assessment Pain When Pain Assessed During Mobility Pain Present Pain Present Denied Pain M4 PT-IP Mobility and Gait Start: 04/16/19 16:06 Freq: NEEDED Status: Active Protocol: Document 04/18/19 09:00 LJ (Rec: 04/18/19 09:31 LJ [id number]) PT-Bed Mobility Assessment Supine to Sit Supine to Sit Independent Scooting Scooting to Edge of Bed Independent PT-Transfer Assessment Sit to and From Stand Sit to and from Stand Standby Assistance Equipment Transfer Assistive Device Gait Belt Orthotic/Prosthetic Devices or Brace: No Transfers Transfer Destination Bed Transfer Technique pt ambulated Transfer Ability Level of Assist Standby Assistance Comments Mobility Comments Pt transferred w/o assistance but cued to attend to [place]. Moves somewhat impulsively Gait Assessment Gait Gait Assistance Required: Standby Assistance Distance (Feet) 400 Able to Maintain Weight Bearing Status Yes During Gait Assistive Devices Assistive Device Gait Belt Orthotic/Prosthetic Devices or Brace: No Gait Deviations General Gait Pattern Decreased Stride Length, Decreased Feet Clearance, Narrow Based Gait Factors Limiting Gait Function Factors Limiting Gait Function Decreased Activity Tolerance, Decreased Strength,Poor Balance,Poor Safety Awareness Comments Gait Comments Pt ambulated safely with attendance to obstacles and safe turning SBA for all ambulation. M5 PT-IP Objective Assessments Start: 04/16/19 16:06 Freq: NEEDED Status: Active Protocol: Document 04/16/19 15:20 AB (Rec: 04/16/19 16:32 AB [id number]) Orientation Orientation/Cognition Level of Alertness Alert Orientation Name,Place,Situation Gross Range of Motion Lower Extremity ROM Assessment Within Functional Limits Strength Lower Extremity Strength Assessment Within Functional Limits Coordination Assessment Gross Coordination Gross Coordination WNL Sensation Assessment Sensation Gross Sensation WNL Muscle Tone Muscle Tone WNL Yes M6 PT-IP Treatment Start: 04/16/19 16:06 Freq: NEEDED Status: Active Protocol: Document 04/17/19 10:13 AW (Rec: 04/17/19 10:37 AW [id number]) Physical Therapy Treatment Education Education Provided Safety Other Treatments Other Treatment Performed Educated pt on use of FWW which he stated he could do for longer bouts of ambulation . He notes that he is safer on his boat since he is always close to something to hold/ touch for balance. M7 PT-IP Assessment and Plan Start: 04/16/19 16:06 Freq: NEEDED Status: Active Protocol: Document 04/18/19 09:00 LJ (Rec: 04/18/19 09:31 LJ [id number]) PT Summary Assessment and Plan Potential Rehabilitation Potential Good Status of Condition at Evaluation Stable Summary Impairments Pain,ROM,Strength,Balance, Coordination,Sensation,Tone, Cognition,Bed Mobility, Transfers,Gait,Activity Tolerance Assessment Summary Pt is SBA for all mobility and gait activities. No LOB but somewhat impulsive during movement and gait. Would benefit from SNF for balance improvement Goals Transfer Goal Independent,Cane,Front Wheeled Walker Gait Goal Independent,Cane,Front Wheel Walker Gait Distance 300 Other Goals LTG: improve ambulation without AD 300 ft I pt to be able to go up ~ 8 steps without AD SBA Days to Meet Goals 10 Frequency of Treatment Frequency Of Treatment Once a Day Treatment Plan Physical Therapy Treatment Plan Bed Mobility Training,Transfer Training,Gait Training, Therapeutic Exercise,Balance Retraining,Discharge Planning, Neuromuscular Re-ed, Coordination Retraining Other Recommendations and Next Treatment - consider FGA without Focus assistive device - balance - stairs Recommendations To Nursing Amount of Assist Needed Standby Assistance Discharge Recommendations PT Discharge Recommendations SNF Rehab,Outpatient PT Equipment Needed for Home Before FWW/SPC if discharge to home Discharge and not safe without AD
--- NOTE | 2019-04-18 10:20 | OT.IP.EVAL ---
Current Diagnoses Unspecified hydronephrosis (04/15/19) Past Medical History (Last Reviewed 04/14/19 @ 19:52 by Matteo Jenkins DO) No chronic problems (Resolved) Surgical History (Last Reviewed 04/14/19 @ 19:52 by Matteo Jenkins DO) Hx of hand surgery (Resolved 2001) Occupational Therapy Inpatient Evaluation/Re-Eval M1 PT/OT-IP Prior Functional Status Start: 04/16/19 16:06 Freq: NEEDED Status: Active Protocol: Document 04/18/19 12:26 CGR (Rec: 04/18/19 12:58 CGR [email or web address]) Medical Review Prior Functional Status Medical History Reviewed Yes Communication able to make needs known Mobility and Gait pt stated that he is independent with all mobilities and ambulation without AD. stated that he is able to walk ~ 5-10 miles a day and also bike around town Activities of Daily Living and IADL's Pt was IND in all ADLs. He uses the [employer] shower for bathing and either the [place] toilet or the outhouse near his boat rather than use the toilet on the boat because of the cost of pumping the tanks. Social History Household Members none Living Arrangements Mobile home Number of Stairs To Enter/Railing? Pt lives on his boat: has an 8 ft ladder (~ 8 steps) up to climb into his boat and then a step down after that; Has 3 steps down with R rail descending to his kitchen Additional Social History Comment Stated that he goes to the [employer] to shower ; uses either the toilet in the [place] or the outhouse near his boat; stated that his boat is not in the water but is parked on a harp so is not too unsteady but still is slippery due to water condensation M2 OT-IP Current Condition Start: 04/18/19 12:26 Freq: Status: Active Protocol: Document 04/18/19 12:26 CGR (Rec: 04/18/19 12:58 CGR [email or web address]) Occupational Therapy Current Condition Current Condition Evaluation Date 04/18/19 Treatment Diagnosis CHF and acute kidney injury Diagnosis Onset Date 04/15/19 M3 OT- IP Subjective and Pain Start: 04/18/19 12:26 Freq: Status: Active Protocol: Document 04/18/19 12:26 CGR (Rec: 04/18/19 12:58 CGR [email or web address]) OT- Subjective Occupational Therapy Visit Type Type Initial Evaluation Visit Start Time 09:55 Visit Stop Time 10:20 Total Visit Minutes 25 Occupational Therapy Visit Comments Patient Comments I have the burden of proof in a legal matter. 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 I have the burden of proof and it is exhausting. My mind is very focused on remembering everything for that right now. OT Pain Assessment Pain When Pain Assessed At Rest Pain Present Pain Present Pain Reported Location Groin Intensity 8 Scale Used Numeric (1 - 10) M4 OT- IP ADL's Start: 04/18/19 12:26 Freq: Status: Active Protocol: Document 04/18/19 12:26 CGR (Rec: 04/18/19 12:58 CGR [email or web address]) OT [id number] General Evaluation Self-Feeding Ability Independent OT ADL-Grooming Comments OT Grooming Comments Pt declined to perform, states he performed this AM OT ADL-Oral Care Comments Oral Care Comments Pt declined to perform, states he performed this AM OT ADL-Dressing General Eval Upper Body Dressing Ability Independent Lower Body Dressing Ability Independent Areas Needing Assistance Socks OT ADL-Toileting Comments OT Toileting Comments Pt declined need, pt with engle and states that he is havign significant pain with the engle. OT ADL-Bathing Comments OT Bathing Comments Not performed in this session. M5 OT- IP IADL's Start: 04/18/19 12:26 Freq: Status: Active Protocol: Document 04/18/19 12:26 CGR (Rec: 04/18/19 12:58 CGR [email or web address]) OT-Instrumental Activities of Daily Living Deficits IADL Deficits Identified Deficits Home Safety Awareness Awareness of Need for Assistance at Home Decreased Awareness Ability to Problem Solve Emergency Unable to Problem Solve Situations M6 OT- IP Functional Cognition Start: 04/18/19 12:26 Freq: Status: Active Protocol: Document 04/18/19 12:26 CGR (Rec: 04/18/19 12:58 CGR [email or web address]) Cognitive Factors Limiting Selfcare Function Cognitive Ability Level of Alertness Alert Patient Orientation Name,Age,Birthday,Month,Date, Year,Day of Week,Place, Situation Attention Span Ability Unable to Focus,Unable to Sustain Attention Ability to Follow Commands Able to Follow One Step Commands with Repetition Memory Description Immediate Impaired,Short Term Impaired Safety Awareness Underestimates Need for Assistance Problem Solving Ability Unable to Identify Errors, Needs Assist to Identify Solutions Cognitive Tests SLUMS Pt agreeable to participating in the [facility]. Pt states he has been asked questions like this before. Pt was unable to perform the math portion of the assessemnt, named 13 animals in 60 seconds, recalled 2 of the 5 items stated earlier in the assessment, was unable to repeat numbers backwards, and labled the clock correctly but did not correctly lable it to the time requested. He was unable to answer any of the questions from the listening comprehension section. Cognitive Comments Cognitive Assessment Comments Pt scored an 11/30 to the SLUMS putting him well into the dementia category. 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 He needs max cues to stay on topic. OT- Vision and Hearing OT- Hearing Assessment OT- Hearing Assessment WFL OT- Vision Assessment Visual Acuity Glasses All The Time,No Vision Aides At Hospital Visual Attentiveness WFL Occular Pursuits WFL Visual Convergence WFL Visual Francis WFL M7 OT- IP Mobility and Balance Start: 04/18/19 12:26 Freq: Status: Active Protocol: Document 04/18/19 12:26 CGR (Rec: 04/18/19 12:58 CGR [email or web address]) OT- Bed Mobility Assessment Supine to Sit Supine to Sit Assist Standby Assistance Scooting Scooting to Edge of Bed Standby Assistance OT-Transfer Assessment Sit to and From Stand Sit to and from Stand Standby Assistance Transfers Transfer Ability Standby Assistance Technique Transfer Destination Bed,Chair Transfer Technique Stand Step Pivot Devices Transfer Assistive Devices Gait Belt Comments Mobility Comments Pt appears to be moving without difficulty. OT- Balance Assessment Sitting Balance and Reactions Static Sitting Balance Ability Normal Dynamic Sitting Balance Ability Good M8 OT- IP Objective Assessments Start: 04/18/19 12:26 Freq: Status: Active Protocol: Document 04/18/19 12:26 CGR (Rec: 04/18/19 12:58 CGR [email or web address]) OT Gross Range of Motion Upper Extremity Range of Motion Assessment Within Functional Limits OT Strength Upper Extremity Strength Assessment Within Functional Limits Comments Strength Comments grossly 4 to 4+/5 to BUE OT- Coordination Assessment Upper Extremity Finger to Nose Test Within Functional Limits Finger Tapping Test Within Functional Limits OT-Muscle Tone Assessment Muscle Tone WNL Yes OT Sensation Assessment Edema Edema Absent M9 OT- IP Assessment and Plan Start: 04/18/19 12:26 Freq: Status: Active Protocol: Document 04/18/19 12:26 CGR (Rec: 04/18/19 12:58 CGR [email or web address]) OT Summary Assessment and Plan Potential Rehabilitation Potential Fair Analytic Complexity at Evaluation Low Summary OT Impairments Functional Cognition Progress Towards Goals Slow Progress due to Cognition Assessment Summary Pt presents as a low complexity evaluation. Pt was admitted with SOB and found to have CHF and acute kidney injury. Pt is fairly mobile at this time but has poor safety awareness and cognition. Pt is perseverating on a legal matter that he states he holds the burden of proof. Pt appears to be taking information from different times in his life and presenting it out of order to explain his current situation, however, given no family or history documented it is difficult to be sure. Pt may benefit from cognitive therapy to assist with problem solving and home safety. Pt would benefit from SNF upon discharge for continued medical management and cognitive therapy. Goals Toileting Goal Independent Bathing Goal Independent Toilet Transfer Goal Independent Shower Transfer Goal Independent OT-Other Goals Pt to demonstrate improved home safety. Days to Meet Goals 5 Frequency of Treatment Frequency Of Treatment Once a Day Treatment Plan OT Treatment Plan Functional Cognition Training Other Treatment Recommendations and Next home safety and cognitive Treatment Focus processing. Discharge Recommendations OT Discharge Recommendations SNF Rehab
--- NOTE | 2019-04-18 14:34 | CM.DPC ---
DCP Cont: Called Katelynn at [facility] admissions, and confirmed that they can accept patient tomorrow. Katelynn did state that they are accepting him tomorrow. P: DCP to continue to follow. Patient should be able to discharge tomorrow to [facility] if stable. Kassie Reardon, RN/Master Rigger
[2019-04-18] MEDS: ASPIRIN EC 81 MG TABLET PO (15:44)
[2019-04-18] MEDS: POLYETHYLENE GLYCOL 3350 17 GM POWD.PACK PO (15:44)
[2019-04-18] MEDS: METOPROLOL ER 25 MG TABLET 50 MG PO (15:44)
[2019-04-18] MEDS: TAMSULOSIN 0.4 MG CAPSULE PO (15:45)
[2019-04-18] MEDS: FERROUS GLUCONATE 324 MG TABLET PO (15:45)
[2019-04-18] MEDS: SODIUM CHLORIDE 0.9% FLUSH 10 ML IV ×2 (15:46→21:26)
--- NOTE | 2019-04-18 17:08 | DIET.PN ---
Dietary Progress Note Assessment: 68y M admitted for chest pains, fluid overload c CHF exacerbation, new onset HLD, pre-DM referred to nutrition for DM and heart healthy nutrition education. 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 Both diets tend to be higher in refined carbohydrates, fatty meats and sodium. 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 Pt reports 20# intentional wt loss in past year and attributes it to fewer fast food meals and more bike rides. Pt was drinking what he reports as gallons of water each day without replenishing electrolytes and feels this, in addition to stress, led to his current hospital stay. HT: 180.3cm WT: 69.5kg UBW: 80kg BMI: 21.4 Labs: A1c 5.9 H, LDL 161 H, HDL 34 L MNA: 9 Jasen: 20 Nutrition Diagnosis:overhydration r/t unsure how to apply info aeb pt was intentionally drinking excessive water to stay adequately hydrated during intensive bicycle training, CHF exacerbation upon admit, pt is -4.5kg in water weight since admit. Interventions: 1. Pt will hydrate appropriately per hospitalist reccs and follow low sodium dietary reccs to manage heart and kidney health. 2. To manage pre-DM, pt will limit juice to 6oz per day in place of one fruit serving. Diet Order:HH/fluid restriction EER: 2500kcal, 70g PRO (1g/kg per renal), 1.8L fluids Monitoring/Evaluations: wt, nutrition education as requested
--- NOTE | 2019-04-18 18:10 | PC.NURSE ---
Addendum entered by Alysha Sun R.N. 04/18/19 21:41: Pt noted to have clots in urine. Continues to have hematuria. CENTRAL OFFICE ASSOCIATE notified. Pt's reports discomfort to meatus has improved after PO Tylenol. Original Note: Pt showered, ambulating in room independently. VSS. Placed back on tele. Pt to Stress test again tomorrow-NPO at 0500. Diet well tolerated for dinner, denies nausea. VSS. IV patent. Engle continues to have bloody urine draining well. Adequate UOP. Slight discomfort at meatus from engle catheter per patient. Will provide prn meds for sleep this evening.
[2019-04-18] MEDS: ACETAMINOPHEN 325 MG TABLET 650 MG PO (18:37)
[2019-04-18] MEDS: HEPARIN 5,000 UNIT/ML VIAL 5000 UNIT SUBCUT (21:26)
[2019-04-18] MEDS: ATORVASTATIN 20 MG TABLET 40 MG PO (21:27)
[2019-04-18] MEDS: DOCUSATE 100 MG CAPSULE PO (21:27)
[2019-04-19 05:00] VITALS: BP 118/70; PULSE 81; RESP 16; TEMP 36.9; O2SAT 98
[2019-04-19 05:15] VITALS: O2SAT 98
[2019-04-19] MEDS: ACETAMINOPHEN 325 MG TABLET 650 MG PO (05:25)
--- NOTE | 2019-04-19 06:39 | PC.NURSE ---
[employer] Note-Allowed patient to sleep uninterrupted overnight. SR, SpO2 98% on RA, denies chest pain or shortness of breath, is oriented x4, but forgetful and impulsive. Tylenol given for c/o bladder tenderness, hematuria continues in [place], total output 650ml. Has been NPO since 0500 for stress test this am.
[2019-04-19 07:24] VITALS: BP 112/68; PULSE 76; RESP 16; TEMP 36.9; O2SAT 97
[2019-04-19 08:20] VITALS: O2SAT 97
--- NOTE | 2019-04-19 09:17 | CM.DPC ---
Addendum entered by Kassie Reardon R.N. 04/19/19 13:17: Spoke to Dr. Ramirez regarding stress test results. She mentioned patient can go today, but will need to follow up with cardiology, secondary to needing heart cath. He will also need urology, as well as PCP. Updated September in admissions at [facility], she is aware. Spoke to nurse Cecily in ICU, and she will also mention this in report with nurse Autumn at [facility]. Let Katelynn in admissions know that orders would be sent as soon as they are completed. Addendum entered by Kassie Reardon R.N. 04/19/19 11:11: Discharge orders completed. 1400 fiber picker time confirmed, updated Wendy nurse in ICU. Diane obtained signed med list, as well as DC summary, and faxed over to [facility]. Number for report given to Wendy. Patient will need to follow up with a PCP, piece cutter, as well as urologist. Original Note: DCP Cont: Spoke with nurse, Wendy, and updated her that [facility] can accept patient today. He is now having his stress test. Katelynn from [facility] called and stated that they can pick patient up at approximately 1400. She will call back to confirm this. Orders for discharge are pending test. P: DCP to follow closely. [facility] can accept patient today if medically stable. Will discuss at team rounds. Kassie Reardon RN/Flight Attendant
--- NOTE | 2019-04-19 09:53 | OT.IP.TRT ---
Current Diagnoses Unspecified hydronephrosis (04/15/19) Occupational Therapy Treatment Note M2 OT-IP Current Condition Start: 04/18/19 12:26 Freq: Status: Active Protocol: Document 04/18/19 12:26 CGR (Rec: 04/18/19 12:58 CGR [email or web address]) Occupational Therapy Current Condition Current Condition Evaluation Date 04/18/19 Treatment Diagnosis CHF and acute kidney injury Diagnosis Onset Date 04/15/19 M3 OT- IP Subjective and Pain Start: 04/18/19 12:26 Freq: Status: Active Protocol: Document 04/19/19 10:49 [facility] (Rec: 04/19/19 11:19 [facility] [id number]) OT- Subjective Occupational Therapy Visit Type Type Treatment Note Visit Start Time 09:53 Visit Stop Time 10:47 Total Visit Minutes 54 Occupational Therapy Visit Comments Patient Comments Pt agreeable to take a shower. Patient/Caregiver Goals Pt perseverating on wanting to get better so able to go back to [place] to take part of legal matters and that he holds, the burden of proof. OT Pain Assessment Pain When Pain Assessed At Rest Pain Present Pain Present Denied Pain M4 OT- IP ADL's Start: 04/18/19 12:26 Freq: Status: Active Protocol: Document 04/19/19 10:49 [facility] (Rec: 04/19/19 11:19 [facility] [id number]) OT QJE-[id number]-Npshrrx General Evaluation Self-Feeding Ability Independent OT ADL-Grooming Comments OT Grooming Comments Declined at this time. OT ADL-Dressing General Eval Upper Body Dressing Ability Independent Lower Body Dressing Ability Independent OT ADL-Toileting Comments OT Toileting Comments Engle in place. OT ADL-Bathing Bathing Type Bathing Type Shower General Evaluation Bathing Ability Independent Devices Bathing Equipment Hand Held Shower Sprayer,Grab Bars Comments OT Bathing Comments Independent. M5 OT- IP IADL's Start: 04/18/19 12:26 Freq: Status: Active Protocol: Document 04/18/19 12:26 CGR (Rec: 04/18/19 12:58 CGR [email or web address]) OT-Instrumental Activities of Daily Living Deficits IADL Deficits Identified Deficits Home Safety Awareness Awareness of Need for Assistance at Home Decreased Awareness Ability to Problem Solve Emergency Unable to Problem Solve Situations M6 OT- IP Functional Cognition Start: 04/18/19 12:26 Freq: Status: Active Protocol: Document 04/19/19 10:49 [facility] (Rec: 04/19/19 11:19 [facility] [id number]) Cognitive Factors Limiting Selfcare Function Cognitive Ability Level of Alertness Alert Patient Orientation Name,Age,Birthday,Month,Date, Year,Place,Situation Attention Span Ability Capable of Focused Attention, Unable to Focus,Unable to Sustain Attention Ability to Follow Commands Able to Follow One Step Commands with Repetition Memory Description Immediate Impaired,Short Term Impaired Safety Awareness Underestimates Need for Assistance Problem Solving Ability No deficits Noted,Unable to Identify Errors Executive Function Ability Unable to Switch Focus,Unable to Filter Distractions,Unable to Remember Details Cognitive Comments Cognitive Assessment Comments Pt able to shower but states during the shower due the temperature being too hot that he would step away from the water at times. Recommended that pt just adjust the temperature, pt states, Oh no then it would get too cold. Pt easily distracted, and having trouble with short term memory . Pt needing assist to help figure out how to manage engle during bed mobility and during the shower. M7 OT- IP Mobility and Balance Start: 04/18/19 12:26 Freq: Status: Active Protocol: Document 04/19/19 10:49 [facility] (Rec: 04/19/19 11:19 [facility] [id number]) OT-Transfer Assessment Sit to and From Stand Sit to and from Stand Independent Transfers Transfer Ability Standby Assistance Technique Transfer Destination Bed,Shower Stall Transfer Technique Stand Step Pivot Comments Mobility Comments Mainly vc for engle needs. OT- Balance Assessment Sitting Balance and Reactions Static Sitting Balance Ability Normal Dynamic Sitting Balance Ability Normal Standing Balance and Reactions Static Standing Balance Ability Normal Dynamic Standing Balance Ability Good M8 OT- IP Objective Assessments Start: 04/18/19 12:26 Freq: Status: Active Protocol: Document 04/18/19 12:26 CGR (Rec: 04/18/19 12:58 CGR [email or web address]) OT Gross Range of Motion Upper Extremity Range of Motion Assessment Within Functional Limits OT Strength Upper Extremity Strength Assessment Within Functional Limits Comments Strength Comments grossly 4 to 4+/5 to BUE OT- Coordination Assessment Upper Extremity Finger to Nose Test Within Functional Limits Finger Tapping Test Within Functional Limits OT-Muscle Tone Assessment Muscle Tone WNL Yes OT Sensation Assessment Edema Edema Absent M9 OT- IP Assessment and Plan Start: 04/18/19 12:26 Freq: Status: Active Protocol: Document 04/19/19 10:49 [facility] (Rec: 04/19/19 11:19 [facility] [id number]) OT Summary Assessment and Plan Potential Rehabilitation Potential Good Analytic Complexity at Evaluation Low Summary OT Impairments Functional Cognition Progress Towards Goals Slow Progress due to Cognition Assessment Summary Pt physically moving well however main deficit still his cognition especially for short term memory, safety awareness. Pt continues to perseverates on legal matters and states feels that he is so stressed now that is why he ended up in the hospital. Goals Shower Transfer Goal Independent OT-Other Goals Pt to demonstrate improved home safety. Independent with engle management needs. Days to Meet Goals 3 Frequency of Treatment Frequency Of Treatment Once a Day Treatment Plan OT Treatment Plan ADL Training,Functional Cognition Training Discharge Recommendations OT Discharge Recommendations SNF Rehab
[2019-04-19] MEDS: METOPROLOL ER 25 MG TABLET 50 MG PO (10:49)
[2019-04-19] MEDS: ASPIRIN EC 81 MG TABLET PO (10:49)
[2019-04-19] MEDS: DOCUSATE 100 MG CAPSULE PO (10:49)
[2019-04-19] MEDS: POLYETHYLENE GLYCOL 3350 17 GM POWD.PACK PO (10:50)
[2019-04-19] MEDS: TAMSULOSIN 0.4 MG CAPSULE PO (10:50)
[2019-04-19] MEDS: FERROUS GLUCONATE 324 MG TABLET PO (10:50)
--- NOTE | 2019-04-19 10:54 | PT-IP ANOTE ---
Pt refused stating he had just been up with OT having a shower and he would like to wait to get back up. Will attempt to check back in on the pt before his d/c to SNF rehab scheduled for 1399.
[2019-04-19 11:00] VITALS: BP 116/72; PULSE 85; RESP 17; TEMP 36.8; O2SAT 97
--- NOTE | 2019-04-19 11:49 | PT.IPTN ---
Current Diagnoses Unspecified hydronephrosis (04/15/19) Physical Therapy Treatment Note M2 PT-IP Current Condition Start: 04/16/19 16:06 Freq: NEEDED Status: Active Protocol: Document 04/16/19 15:20 AB (Rec: 04/16/19 16:32 AB [id number]) Physical Therapy Current Condition Current Condition Evaluation Date 04/16/19 Treatment Diagnosis CHF; acute kidney injury; difficulty in walking Onset Date 04/15/19 Precautions Other Precautions falls M3 PT-IP Subjective Start: 04/16/19 16:06 Freq: NEEDED Status: Active Protocol: Document 04/19/19 11:49 CLB (Rec: 04/19/19 12:13 CLB [id number]) Subjective Physical Therapy Visit Type Type Treatment Note Visit Start Time 11:49 Visit Stop Time 12:05 Total Visit Minutes 16 Number of CHILD 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 Therapy Pain Assessment Pain When Pain Assessed During Mobility Pain Present Pain Present Denied Pain M4 PT-IP Mobility and Gait Start: 04/16/19 16:06 Freq: NEEDED Status: Active Protocol: Document 04/19/19 11:49 CLB (Rec: 04/19/19 12:13 CLB [id number]) PT-Bed Mobility Assessment Supine to Sit Supine to Sit Independent Sit to Supine Sit to Supine Independent Scooting Scooting to Edge of Bed Independent PT-Transfer Assessment Sit to and From Stand Sit to and from Stand Standby Assistance Equipment Transfer Assistive Device Gait Belt Orthotic/Prosthetic Devices or Brace: No Transfers Transfer Destination Bed Transfer Technique pt ambulated Transfer Ability Level of Assist Standby Assistance Gait Assessment Gait Gait Assistance Required: Standby Assistance Distance (Feet) 400 Able to Maintain Weight Bearing Status Yes During Gait Assistive Devices Assistive Device None,Gait Belt Orthotic/Prosthetic Devices or Brace: No Gait Deviations General Gait Pattern Decreased Stride Length, Decreased Feet Clearance, Narrow Based Gait Factors Limiting Gait Function Factors Limiting Gait Function Decreased Activity Tolerance, Decreased Strength,Poor Balance,Poor Safety Awareness Comments Gait Comments Pt ambulated in [place] w/o AD SBA, pt is able to ambulate while managing engle without LOB with head turns. M5 PT-IP Objective Assessments Start: 04/16/19 16:06 Freq: NEEDED Status: Active Protocol: Document 04/16/19 15:20 AB (Rec: 04/16/19 16:32 AB [id number]) Orientation Orientation/Cognition Level of Alertness Alert Orientation Name,Place,Situation Gross Range of Motion Lower Extremity ROM Assessment Within Functional Limits Strength Lower Extremity Strength Assessment Within Functional Limits Coordination Assessment Gross Coordination Gross Coordination WNL Sensation Assessment Sensation Gross Sensation WNL Muscle Tone Muscle Tone WNL Yes M6 PT-IP Treatment Start: 04/16/19 16:06 Freq: NEEDED Status: Active Protocol: Document 04/17/19 10:13 AW (Rec: 04/17/19 10:37 AW [id number]) Physical Therapy Treatment Education Education Provided Safety Other Treatments Other Treatment Performed Educated pt on use of FWW which he stated he could do for longer bouts of ambulation . He notes that he is safer on his boat since he is always close to something to hold/ touch for balance. M7 PT-IP Assessment and Plan Start: 04/16/19 16:06 Freq: NEEDED Status: Active Protocol: Document 04/19/19 11:49 CLB (Rec: 04/19/19 12:13 CLB [id number]) PT Summary Assessment and Plan Potential Rehabilitation Potential Good Status of Condition at Evaluation Stable Summary Impairments Pain,ROM,Strength,Balance, Coordination,Sensation,Tone, Cognition,Bed Mobility, Transfers,Gait,Activity Tolerance Assessment Summary Pt is SBA for all mobility and gait activities. No LOB during ambulation. Would benefit from SNF for balance improvement. Goals Transfer Goal Independent,Cane,Front Wheeled Walker Gait Goal Independent,Cane,Front Wheel Walker Gait Distance 300 Other Goals LTG: improve ambulation without AD 300 ft I pt to be able to go up ~ 8 steps without AD SBA Days to Meet Goals 10 Frequency of Treatment Frequency Of Treatment Once a Day Treatment Plan Physical Therapy Treatment Plan Bed Mobility Training,Transfer Training,Gait Training, Therapeutic Exercise,Balance Retraining,Discharge Planning, Neuromuscular Re-ed, Coordination Retraining Recommendations To Nursing Amount of Assist Needed Standby Assistance Discharge Recommendations PT Discharge Recommendations SNF Rehab,Outpatient PT Equipment Needed for Home Before FWW/SPC if discharge to home Discharge and not safe without AD
--- NOTE | 2019-04-19 13:32 | CM.DPC ---
DCP Cont: Faxed discharge packet (SNF order, signed med list and [facility] fax # [phone]. Fax confirmation scanned in. Diane Gilbert [facility] Psychotherapist
--- NOTE | 2019-04-19 13:48 | PM.DS.1 ---
History of Present Illness History of Present Illness Date Patient Seen: 04/14/19 Chief complaint: Not feeling well, thinks having Heart attack Narrative: Written by Dr. Jenkins: Joel Mishra is a 68-year-old male with no known past medical history who presented with approximately 4 days of feeling short of breath. He jumps frequently between time periods in his history so some of the time frame may be an accurate based upon my recall. Patient states the for the past 4 days he has been more short of breath than usual, and starting yesterday he noticed that he was gasping for air especially when lying flat, he also complains of a productive cough with yellow mucus and feeling very fatigued. He reports significant short of breath and fatigue when ambulatory, especially when riding his bike. He is also noted some intermittent left-sided chest pain that did improve with an aspirin which he gave himself. He does report some arm tingling but denies any nausea, vomiting, radiation of the pain into his left arm, or neck. He denies any diaphoresis when he has chest pain. He denies any lower extremity edema. He denies any fevers, chills, headaches, vision changes, abdominal pain. He reports episodes of urinary incontinence where he will be unable to void more than a few drops when he feels like he has to void, but at other times he will be incontinent of urine. He does note previous episodes of shortness of breath and prior admissions where he was diagnosed with asthma. 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 In the ED his vital signs were notable for a sinus tachycardia, hypertension, and mild tachypnea. He was saturating well on room air. His labs were notable for a hemoglobin of 10.9, with MCV of 83. Chemistries showed a D-dimer of 250, negative for his age. His creatinine is 2.8 with a BUN of 46, his baseline is unknown. His ALT is mildly elevated at 53. His BNP was 891, initial troponin was 0.027. EKG showed sinus tachycardia without evidence of ischemia, but did show possible left atrial dilatation. Chest x-ray showed bilateral increased opacities consistent with volume overload, and small bilateral pleural effusions. Discharge Providers Provider Date of admission: 04/15/19 11:23 Discharge Date: 04/19/19 Primary care physician: Jim White MD Consults: 04/15/19 00:10 Consult to Respiratory Therapy Evaluate & Treat Comment: Physician Instructions: Evaluate and treat 04/16/19 09:57 Consult to Physical Therapy Evaluate & Treat Comment: Physician Instructions: Evaluate and Treat 04/16/19 16:07 Consult to Dietitian, Adult Routine Comment: Reason For Exam: unintentional weight loss 04/17/19 10:22 Consult to Occupational Therapy Evaluate & Treat Comment: Physician Instructions: Evaluate and treat Discharge provider: Joyce Ramirez DO Summary Hospital Course Discharge Diagnosis: 1. Acute obstructive uropathy with bilateral hydronephrosis, likely secondary to BPH, present on admission. Resolved. 2. Acute UTI ruled out. 3. Acute kidney injury on probable chronic kidney disease, present on admission. Acute kidney injury resolving. 4. Newly diagnosed systolic congestive heart failure EF 25-30% with exacerbation, acuity unknown, present on admission. Acute exacerbation resolved. 5. Newly diagnosed hypertension, likely chronic, present on admission. Active. 6. Newly diagnosed hyperlipidemia, likely chronic, present on admission. Active. 7. Newly diagnosed prediabetes, present on admission. Active. 8. Acute hypokalemia, not present on admission. Resolved. 9. Elevated troponin, likely secondary to demand ischemia from volume overload from CHF, present on admission. Resolved. 10. Normocytic anemia, likely chronic, present on admission. Stable. Hospital Course: Joel Mishra is a 68-year-old male with no known past medical history who presented with progressive worsening shortness of breath, likely acute on chronic and acutely worsening over the past 4 days prior to admission, but difficult to tell as the patient is a very poor historian. 1. Acute obstructive uropathy with bilateral hydronephrosis, likely secondary to BPH, present on admission. Resolved. -Patient reports difficulty urinating, alternating with episodes of incontinence. Likely indicative of overflow incontinence in setting of chronic obstruction. -Initial PVR demonstrated urinary retention of 600 cc and bedside ultrasound showed bilateral hydronephrosis. Bradshaw catheter was placed with good urine output. A renal ultrasound demonstrated bilateral hydronephrosis, but no catheter visualized within the urinary bladder. Nursing attempted to advance/manipulate the Bradshaw catheter, however, it was still not visualized on ultrasound and Bradshaw catheter was removed. There was some concern for possible urethral obstruction, therefore, a CT abdomen and pelvis without contrast was performed and demonstrated severe bilateral hydronephrosis and mild to moderate bilateral perinephric fat stranding, no discrete mass lesions or stones visualized within the ureters to explain hydronephrosis and hydroureter. Replaced Bradshaw catheter and repeat renal ultrasound demonstrated significant improvement in bilateral hydronephrosis in this patient who has now had a Bradshaw catheter placed within the central portion of the bladder with almost completely emptying of the bladder. Patient continues to have mild gross hematuria likely due to prostate irritation from Bradshaw catheter. Hemodynamically stable. Blood count stable. -Started and continued tamsulosin 0.4 mg daily. -Previous provider discussed the case with on-call Urology at the [facility], Dr. Torres, who agrees with current management and would anticipate acute renal failure should begin to resolve after replacement of Bradshaw catheter and that hydronephrosis can take a few weeks to resolve, especially if chronic in nature. Recommended leaving Bradshaw catheter in place and follow-up with urology as an outpatient. -Patient now has post-obstructive diuresis and continued to monitor hemodynamics and electrolytes closely and replete as necessary. No need for chemical diuresis. Recommend repeat BMP and magnesium in 3-5 days. 2. Acute UTI ruled out. -Patient endorses urinary tract/BPH symptoms including dysuria, urinary frequency, urinary hesitancy, split stream, urinary dribbling and incomplete bladder emptying. -Urinalysis appeared grossly infected, however, urine culture had no growth. Discontinued antibiotics. 3. Acute kidney injury on probable chronic kidney disease, present on admission. Acute kidney injury resolving. -Unclear baseline creatinine. Initial creatinine 2.8. Creatinine trended up to 3.4 likely secondary to obstructive uropathy and congestive nephropathy. Creatinine is trending down since his obstructive uropathy has been resolved and creatinine is currently 2.1 and likely approaching his baseline function. He likely has a component of CKD but has not received any outpatient care up to this point, therefore, his baseline renal function is unknown. Patient appears to have mild post-obstructive diuresis and will monitor hemodynamics and electrolytes closely and replete as necessary. Will hold off on starting furosemide for now and will continue to monitor his creatinine until there is significant improvement and stability. -Avoided nephrotoxic agents. -Continued Bradshaw catheter management and plan for outpatient urology follow-up as above. -Continued to monitor renal function daily. 4. Newly diagnosed systolic congestive heart failure EF 25-30% with exacerbation, acuity unknown, present on admission. Acute exacerbation resolved. -Patient presented with progressive worsening dyspnea on exertion leading to shortness of breath at rest and orthopnea x 4 days. Patient had JVD, bibasilar crackles, bilateral small pleural effusions, and trace peripheral edema on initial exam. He has not been hypoxemic. -Echocardiogram demonstrated mildly enlarged left ventricle with severely reduced systolic function (EF 25-30%), right ventricle is mildly dilated and systolic function is mildly reduced, left atrium is severely dilated, mild to moderate tricuspid regurgitation and severe mitral regurgitation. Etiology possibly secondary to enlarged LV as no obvious prolapse or flail leaflet noted and recommend to consider DELONTE to rule out primary mitral regurgitation. -Received furosemide 40 mg IV x1 in ED. Patient was then diuresed on admission and received additional furosemide 40 mg IV every 12 hours x 2 doses. Diuresis was then discontinued due to obstructive uropathy and worsening renal function. The patient's bibasilar crackles, peripheral edema and JVD resolved. Patient developed post-obstructive diuresis and continued to monitor hemodynamics and electrolytes closely and replete as necessary. No need for chemical diuresis. -Started and continued metoprolol succinate 50 mg daily. Patient will need to start an ACEI or ARB (also could consider isosorbide mononitrate and hydralazine) in the near future as renal function stabilizes. Recommend repeat BMP and magnesium in 3-5 days. -Continued strict I&O and daily weights. Net - 7.5 L. -Continued heart healthy low-sodium diet with fluid restriction of 1.5 L daily. -Continued to monitor renal function and electrolytes daily and replete as necessary. Goal K > 4.0 and Mg 2.0. -Stress test demonstrated irreversible inferior apical defect. Cardiology recommends expedited outpatient cardiology referral and cardiac catheterization once obstructive uropathy and any urological intervention has been completed. 5. Newly diagnosed hypertension, likely chronic, present on admission. Active. -Started and continued metoprolol succinate 50 mg daily to treat newly diagnosed CHF, as well as, hypertension. 6. Newly diagnosed hyperlipidemia, likely chronic, present on admission. Active. -Fasting lipid panel demonstrated poor lipid control: Total cholesterol 217, Triglycerides 101, LDL 161 (goal <100), HDL 36. -Started and continued atorvastatin 40 mg daily at bedtime. 7. Newly diagnosed prediabetes, present on admission. Active. -Hemoglobon A1C 5.9%. -Educated the patient regarding diabetes mellitus and lifestyle modification including diet and exercise. -Consulted dietitian and we appreciate her time and recommendations. -Continued diet control with heart healthy/carbohydrate consistent diet. 8. Acute hypokalemia, not present on admission. Resolved. -Secondary to post-obstructive diuresis and chemical diuresis. -Potassium level trended down to 3.3. Repleted with potassium chloride 40 mEq PO x 3. -Continued to monitor potassium level daily and replete as necessary. 9. Elevated troponin, likely secondary to demand ischemia from volume overload from CHF, present on admission. Resolved. -Likely secondary to volume overload from newly diagnosed systolic congestive heart failure and obstructive uropathy. Troponin has down trended and no need to further trend. EKG is nonischemic. Repeat EKG was further unchanged. -Received 324 mg of aspirin x1 in ED. Continued aspirin 81 mg daily. -Stress test demonstrated irreversible inferior apical defect. Cardiology recommends expedited outpatient cardiology referral and cardiac catheterization once obstructive uropathy and any urological intervention has been completed. 10. Normocytic anemia, likely chronic, present on admission. Stable. -Likely secondary to anemia of chronic kidney disease and iron deficiency. -Iron studies demonstrated mild iron deficiency. Started and continued ferrous gluconate 324 mg daily. -Patient is also having mild gross hematuria from Bradshaw catheter irritating prostate possibly contributing minimally. Exam Vital Signs (past 8 hours): - 04/19/19 07:24 04/19/19 08:20 04/19/19 11:00 Temperature 98.5 F 98.3 F Pulse Rate 76 85 Respiratory Rate 16 17 Blood Pressure 112/68 116/72 Pulse Oximetry 97 97 97 Oxygen Delivery Method Room Air Oxygen Flow Rate 0 Narrative Exam Narrative: General: Elderly male sitting in bedside chair and in no acute distress, appears younger than stated age, well-developed, well-nourished, appropriately interactive. HEENT: Normocephalic, atraumatic. External ears without defect. Pupils equal, round, and reactive to light. Anicteric sclerae, moist conjunctivae, and no lid lag. Neck: Supple with full range of motion. No jugular venous distension. No lymphadenopathy or thyromegaly. Cardiovascular: Regular rhythm and rate without murmurs, rubs, or gallops appreciated. Pulmonary: Clear to auscultation bilaterally and diminished at bilateral bases without crackles, wheezes, or rhonchi. Normal respiratory effort with no use of accessory muscles. Abdomen: Soft, bowel sounds present, nontender, nondistended. Left-sided flank tenderness resolved. No hepatosplenomegaly or masses appreciated. Genitourinary: Bradshaw catheter in place with gross hematuria. Extremities: No clubbing, cyanosis, or edema. Skin: Normal temperature, turgor, and texture; no rash, ulcers, or subcutaneous nodules appreciated. Neurological: Cranial nerves grossly intact. Psychiatric: Normal mood and affect. Circumstantial train of thought. Appears alert and oriented to person, place, and time. [id number] dementia with short-term memory recall deficit. Objective Labs Result Diagrams: 04/19/19 13:57 04/19/19 13:57 Discharge Plan Discharge Plan Patient Disposition: SNF Transfer to: [facility] Under care of provider: events director Discharge orders & Medications Prescriptions: New polyethylene glycol 3350 17 gram Powder In Packet 17 gm PO DAILY Qty: 30 RF: 0 aspirin 81 mg Tablet,Delayed Release (Dr/Ec) 81 mg PO DAILY Qty: 30 RF: 0 tamsulosin [Flomax] 0.4 mg Capsule 0.4 mg PO DAILY Qty: 30 RF: 0 docusate sodium [DOK] 100 mg Capsule 100 mg PO BID Qty: 60 RF: 0 ferrous gluconate 324 mg (38 mg iron) Tablet 324 mg PO DAILY Qty: 30 RF: 0 metoprolol succinate 50 mg tablet extended release 24 hr 50 mg PO DAILY Qty: 30 RF: 0 atorvastatin 40 mg tablet 40 mg PO BEDTIME Qty: 30 RF: 0 Other Ambulatory Orders: Basic Metabolic Panel (Stat) Timeframe: 5 Days Facility: [facility] - Location: Laboratory Ordered By: Joyce Ramirez Magnesium (Stat) Timeframe: 5 Days Facility: [facility] - Location: Laboratory Ordered By: Joyce Ramirez Follow up/Referrals: Jim White MD [Primary Care Provider] - Discharge Health Status Health Concerns: The patient has obstructive uropathy likely secondary to BPH and will need to have urology follow-up as soon as possible after discharge. Once urological intervention has been completed cardiology recommends heart catheterization for coronary artery disease. Please arrange for expedited Cardiology evaluation in the interim so that when his urological intervention is completed he can have the heart catheterization immediately thereafter. Diet/Activity/Treatments Diet: Carb-consistent/Diabetic, Low-fat, Low-sodium and Low-cholesterol Diet comment: Low sodium < 2 g a day and fluid restriction 1.5 L Activity: Activity as tolerated with physical therapy and AD if needed Catheter: 2-way [facility] Rehab type: Physical therapy Discharge Data Primary Care Provider: Jim White Discharges patient from system. Discharge Date/Time: 04/19/19 14:25
--- NOTE | 2019-04-19 13:52 | DI.NM.S_ITS ---
DATE OF SERVICE: 04/18/2019 PROCEDURE: Pharmacological perfusion study. INDICATIONS: Congestive heart failure, LV dysfunction. RADIOPHARMACEUTICAL: 26.5 mCi technetium-99m Myoview IV was injected during stress and 27.3 mCi technetium-99m Myoview IV was injected at rest. CARDIAC STRESS: Patient underwent IV Lexiscan perfusion study under the supervision of an attending staff using standard IV Lexiscan protocol. Patient remained hemodynamically stable. No chest discomfort. Baseline EKG revealed sinus rhythm. During stress, convincing ischemic changes or significant arrhythmias seen. RAW DATA: There is significantly increased subdiaphragmatic activity. There is a hotspot near the inferior border of the heart. GATED STUDY: Resting LV ejection fraction 36%. Stress LV ejection fraction 42% with global hypokinesis. No transient ischemic dilatation. TID ratio is 0.92, which is within normal limits. Resting LV end-diastolic volume is 214 mL which appears to be dilated. Lung/heart ratio is 0.43, which is within normal limits. MYOCARDIAL PERFUSION SCAN: Stress supine, resting supine, and stress prone images were compared to each other. It appears to be that patient has predominantly large-sized syxnublg-au-hbohzmoh decreased perfusion of inferior wall and inferoapex. There is some subtle improvement in prone images without any significant reversible ischemia. Hotspot seen near the inferior borders of the heart as well. CONCLUSION: Predominantly fixed, hnyvvtha-cy-ptyxs size, moderately severe perfusion defect involving inferior wall and inferoapex without any significant improvement during prone images. No obvious reversible ischemia. Patient has a hotspot near the inferior border. Some of the perfusion defect could be due to artifact. However, cannot rule out possibility of inferior wall and inferior apical infarction in view of left ventricular (LV) dysfunction. Left ventricle is dilated. Stress LV ejection fraction about 42% and resting LV ejection fraction 36%. Hence, I will call this study likely an abnormal myocardial perfusion study. Danica Joel - BECKY/lor/ doc#: [id number]/job#: [id number] dd: 04/19/2019 12:27:00 dt: 04/19/2019 13:36:00 DICTATING MD/COPIES TO: Lin Duron MD COPIES MNE: HAZEL
[2019-04-19 14:16] LABS: Add Manual Diff / Slide Review NO; Basophils Absolute Auto 100 /uL (0-100); Basophils Percent Auto 0.8 % (0-2); Eosinophils Absolute Auto 400 /uL (0-450); Eosinophils Percent Auto 5.1 % (2-4); Hemoglobin 11.1 g/dL (13.5-17.5); Lymphocytes Absolute Auto 1400 /uL (1100-4500); Lymphocytes Percent Auto 18.8 % (25-40); Mean Corpuscular HGB Conc 32.6 % (30-36); Mean Corpuscular Hemoglobin 27.5 PG (26-34); Mean Corpuscular Volume 84.1 fL (80-100); Monocytes Absolute Auto 700 /uL (0-900); Monocytes Percent Auto 8.7 % (3-14); Neutrophils Absolute Auto 5000 /uL (1500-7000); Neutrophils Percent Auto 66.6 % (50-75); Platelet Count 159 X10^3/uL (150-400); Red Blood Cell Count 4.04 X10^6/uL (4.5-5.9); Red Cell Distribution Width 14.5 % (11.6-14.8); White Blood Cell Count 7.5 X10^3/uL (4.5-11.0)
[2019-04-19 14:27] LABS: Magnesium 2.1 mg/dL (1.6-2.3)
[2019-04-19 14:28] LABS: Alanine Aminotransferase 29 IU/L (<50); Albumin 3.8 g/dL (3.5-5.0); Albumin Globulin Ratio 1.2 (1.0-2.8); Alkaline Phosphatase 92 U/L (38-126); Aspartate Aminotransferase 26 IU/L (17-59); BUN Creatinine Ratio 18.1 (6-22); Bilirubin Total 0.3 mg/dL (0.2-1.3); Blood Urea Nitrogen 38 mg/dL (9-20); Calcium 9.2 mg/dL (8.4-10.2); Carbon Dioxide 28 mmol/L (22-32); Chloride 103 mmol/L (98-107); Estimated Glomerular Filt Rate 31.4 mL/min (>60); Globulin 3.2 g/dL (1.7-4.1); Glucose 113 mg/dL (80-110); HEMOLYSIS < 15 (0-50); Potassium 4.1 mmol/L (3.4-5.1); Sodium 139 mmol/L (137-145)
--- NOTE | 2019-04-19 14:33 | PC.NURSE ---
Discharge Note Transferred to [facility] via wheelchair at 1425 with facility transport. Packet with pt along with all belongings. Report called to Autumn VARGAS, all questions answered.
== END 2019-04-19 14:25 | DRG 291 ==
LOC: ED 17:37 → AC 17:46 → ICU 04-15 06:59 → AC 04-15 11:32
PROVIDERS: Internal Medicine; Nurse Practitioner Adult Health; Admitting Provider Internal Medicine; Emergency Provider Nurse Practitioner Family; PCP Family Medicine; Visit Provider Internal Medicine
DX: I13.0 Hypertensive heart and chronic kidney disease with heart failure and stage 1 through stage 4 chronic kidney disease, or unspecified chronic kidney disease (principal); I50.23 Acute on chronic systolic (congestive) heart failure; N13.30 Unspecified hydronephrosis; N13.8 Other obstructive and reflux uropathy; N17.9 Acute kidney failure, unspecified; N18.4 Chronic kidney disease, stage 4 (severe); I24.8 Other forms of acute ischemic heart disease; N40.1 Benign prostatic hyperplasia with lower urinary tract symptoms; I12.9 Hypertensive chronic kidney disease with stage 1 through stage 4 chronic kidney disease, or unspecified chronic kidney disease; E87.6 Hypokalemia; R73.03 Prediabetes; E78.5 Hyperlipidemia, unspecified; Z23 Encounter for immunization
CPT/HCPCS: 36415; 71045; 71046; 74176; 76770; 78452; 80048; 80053; 80061; 80076; 81001; 82550; 82553; 83036; 83540; 83550; 83690; 83735; 83880; 84145; 84443; 84484; 85025; 85379; 85610; 85730; 87086; 87797; 90471; 90656; 93005; 93016; 93017; 93018; 93306; 96361; 96374; 97116; 97127; 97161; 97165; 97530; 97535; 99284; 99285; G0378; A9502; J1644; J1940; J2785; Q2038

== ENCOUNTER 2019-05-07 12:18 | Emergency (ER) | payer MEDICARE, SELFPAY ==
[2019-04-14 18:42] VITALS: BMI 22.7
[2019-05-07 12:20] VITALS: BP 154/91; PULSE 116; RESP 18; TEMP 36.5; O2SAT 100; BMI 21.7
[2019-05-07 12:30] VITALS: BP 150/87; PULSE 104; RESP 19; O2SAT 100
--- NOTE | 2019-05-07 12:30 | DI.RAD.S_ITS ---
PROCEDURE: XR CHEST 1V INDICATIONS: chest pain TECHNIQUE: One view of the chest was acquired. COMPARISON: [facility], CT, CT ABDOMEN PELVIS WO CON, 04/15/2019, 8:42. [facility], CR, XR CHEST 2V, 04/14/2019, 12:53. [facility], CR, XR CHEST 1V, 04/17/2019, 8:02. FINDINGS: Surgical changes and devices: None. Lungs and pleura: Lungs are clear. No pleural effusions or pneumothorax. Mediastinum: The cardiac contours are within normal limits. The aorta demonstrates calcification and tortuosity. Bones and chest wall: Age-appropriate bony degenerative changes are seen. No suspicious bony lesions. Overlying soft tissues appear unremarkable. IMPRESSION: Unremarkable portable chest study for age. Resolution of the previously seen small right-sided pleural effusion. Dictated by: Renato Henriquez M.D. on 05/07/2019 at 11:57 Approved by: Renato Henriquez M.D. on 05/07/2019 at 11:58
--- NOTE | 2019-05-07 12:31 | PC.NURSE ---
Pt states he has not taken his medication since Thursday. He states even if he had refills available he has no money to fill them.
[2019-05-07 12:45] LABS: INR 1.1 (0.9-1.3); Prothrombin Time 12.2 SECONDS (10.1-12.7)
[2019-05-07 12:47] LABS: PTT Partial Thromboplastin Tim 35 SECONDS (26.4-36.2)
[2019-05-07 12:49] LABS: Alanine Aminotransferase 22 IU/L (<50); Alkaline Phosphatase 109 U/L (38-126); Aspartate Aminotransferase 26 IU/L (17-59); BUN Creatinine Ratio 14.3 (6-22); Bilirubin Total 0.3 mg/dL (0.2-1.3); Blood Urea Nitrogen 20 mg/dL (9-20); Calcium 9.5 mg/dL (8.4-10.2); Carbon Dioxide 28 mmol/L (22-32); Chloride 104 mmol/L (98-107); Creatine Kinase 40 U/L (55-170); Estimated Glomerular Filt Rate 50.1 mL/min (>60); Globulin 4.1 g/dL (1.7-4.1); Glucose 97 mg/dL (80-110); HEMOLYSIS < 15 (0-50); Lipase 109 U/L (23-300); Sodium 140 mmol/L (137-145); Total Protein 8.1 g/dL (6.3-8.2)
[2019-05-07 12:50] LABS: Add Manual Diff / Slide Review NO; Basophils Absolute Auto 100 /uL (0-100); Basophils Percent Auto 0.7 % (0-2); Eosinophils Absolute Auto 300 /uL (0-450); Eosinophils Percent Auto 3.6 % (2-4); Lymphocytes Absolute Auto 1500 /uL (1100-4500); Lymphocytes Percent Auto 18.4 % (25-40); Mean Corpuscular HGB Conc 33.2 % (30-36); Mean Corpuscular Hemoglobin 27.1 PG (26-34); Mean Corpuscular Volume 81.8 fL (80-100); Monocytes Absolute Auto 700 /uL (0-900); Monocytes Percent Auto 8.1 % (3-14); Neutrophils Absolute Auto 5700 /uL (1500-7000); Neutrophils Percent Auto 69.2 % (50-75); Platelet Count 246 X10^3/uL (150-400); Red Blood Cell Count 4.04 X10^6/uL (4.5-5.9); Red Cell Distribution Width 14.1 % (11.6-14.8); White Blood Cell Count 8.3 X10^3/uL (4.5-11.0)
--- NOTE | 2019-05-07 12:56 | ED.ARRPALP ---
HPI - Arrhythmia/Palpitations General Chief Complaint: Arrhythmia/Palpitations Stated Complaint: SOB/ RAPID HB/ NO MEDICATION Time Seen by Provider: 05/07/19 12:50 Source: patient and RN notes reviewed Mode of arrival: Ambulatory Limitations: no limitations History of Present Illness HPI narrative: Who presents with heart palpitations. He is difficult to get history from however he states today he was calling the pharmacy to get some of his medications squared away. He says that he started having some heart palpitations before the on-call is during the from call he was told he only has parts a and B and needs to D so he has not been able to fill or take some of his medications his palpitations got significantly worse. He said his heart rate was in the 150s. He denies any dizziness or lightheadedness he did have some shortness of breath at that time but no actual chest pain. He was able to drive himself here to the emergency department for evaluation. Now here his heart rate is 100 at the time of my evaluation and overall feeling better. He apparently was admitted over the holiday on 04/14/2019 where he was diagnosed with new onset congestive heart failure 25-30% a he actually has no pain with cardiology 2 days. MD complaint: rapid heart beat Duration: now resolved Related Data Previous Rx's Medication Instructions Recorded aspirin 81 mg PO DAILY #30 tab 04/19/19 atorvastatin 40 mg PO BEDTIME #30 tab 04/19/19 docusate sodium [DOK] 100 mg PO BID #60 cap 04/19/19 ferrous gluconate 324 mg PO DAILY #30 tab 04/19/19 metoprolol succinate 50 mg PO DAILY #30 tab 04/19/19 polyethylene glycol 3350 17 gm PO DAILY #30 ea 04/19/19 tamsulosin [Flomax] 0.4 mg PO DAILY #30 cap 04/19/19 atorvastatin 40 mg PO BEDTIME #30 tab 05/07/19 metoprolol succinate 50 mg PO DAILY #30 tab 05/07/19 Allergies Allergy/AdvReac Type Severity Reaction Status Date / Time No Known Drug Allergies Allergy Verified 05/07/19 13:02 Review of Systems Review of Systems Narrative: GENERAL: Denies chills, fatigue, malaise, fever, sweats, travel HEENT: Denies sinus pain, ear pain, sore throat, difficulty swallowing, neck pain RESPIRATORY: Denies dyspnea, cough, wheezing, hemoptysis, sputum. CARDIOVASCULAR: See HPI GASTROINTESTINAL: Denies nausea, vomiting, abdominal pain, diarrhea, constipation, melena. : Denies dysuria, frequency, incontinence, hematuria, urinary retention, flank pain. MUSCULOSKELETAL: Denies weakness, joint pain, or bony pain SKIN: No rash, no erythema, no pruritus NEUROLOGIC: Denies weakness, dizziness, headache, numbness, change in speech, confusion PSYCHIATRIC: No concerning psychosocial issues. 12 point review of systems is negative except for those stated above and HPI Patient History Medical History Congestive heart failure (Acute) Hyperlipidemia (Acute) Hypertension (Acute) No chronic problems (Resolved) Surgical History Hx of hand surgery (Resolved 2001) Social History household members: none Smoking Status: Never smoker Smoking Status: Never smoker alcohol intake frequency: other Substance Use Type: does not use Exam Initial Vital Signs Initial Vital Signs: Vital Signs Temperature 97.7 F 05/07/19 12:20 Pulse Rate 116 H 05/07/19 12:20 Respiratory Rate 18 05/07/19 12:20 Blood Pressure 154/91 H 05/07/19 12:20 Pulse Oximetry 100 05/07/19 12:20 GENERAL: Pleasant elderly male and in [no acute] distress. HEENT: Head atraumatic,EOMI, pupils reactive, face symmetric, [moist] mucous membranes CARDIOVASCULAR: Regular rate and rhythm without murmurs, rubs or gallops. RESPIRATORY: Breath sounds equal bilaterally, no wheezes rales or rhonchi. ABDOMEN: Soft, nontender. Normoactive bowel sounds all 4 quadrants. No guarding or rebound.ss EXTREMITIES: Normal range of motion, no clubbing or edema. Neurovascularly intact NEUROLOGICAL: Alert and oriented x4.Normal gait and speech. Cranial nerves II through XII grossly intact. SKIN: Warm, dry, no laceration, no petechiae, no rashes or lesions. Course Orders Ordered: ED Orders 05/07/19 12:25 BNP [B Type Natriuretic Peptide] Stat Complete Blood Count AUTO DIFF Stat Comprehensive Metabolic Panel Stat Lipase Stat Magnesium Stat Partial Thromboplastin Time Stat Prothrombin Time INR Stat Troponin & CK Cardiac Panel Stat 05/07/19 12:30 XR chest 1V Stat EKG-12 Lead Stat 05/07/19 13:00 B Type Natriuretic Peptide Stat Vital Signs Vital signs: Vital Signs - 8 hr 05/07/19 12:20 05/07/19 12:30 05/07/19 13:30 Temperature 97.7 F Pulse Rate 116 H 104 H 97 H Respiratory Rate 18 19 15 Blood Pressure 154/91 H Blood Pressure [Left Arm] 150/87 H 129/77 Pulse Oximetry 100 100 100 MDM - Arrhythmia/Palpitations Lab Data Attestation: I reviewed the patient's lab results. Result diagrams: 05/07/19 12:25 05/07/19 12:25 Labs: Lab Results 05/07/19 05/07/19 05/07/19 Range/Units 12:25 12:25 12:25 WBC 8.3 (4.5-11.0) X10^3/uL RBC 4.04 L (4.5-5.9) X10^6/uL Hgb 11.0 L (13.5-17.5) g/dL Hct 33.0 L (41-53) % MCV 81.8 (80-100) fL MCH 27.1 (26-34) PG MCHC 33.2 (30-36) % RDW 14.1 (11.6-14.8) % Plt Count 246 (150-400) X10^3/uL Neut % (Auto) 69.2 (50-75) % Lymph % (Auto) 18.4 L (25-40) % [place] % (Auto) 8.1 (3-14) % Eos % (Auto) 3.6 (2-4) % Baso % (Auto) 0.7 (0-2) % Neut # (Auto) 5700 (5312-8724) /uL Lymph # (Auto) 1500 (2295-6455) /uL [place] # (Auto) 700 (0-900) /uL Eos # (Auto) 300 (0-450) /uL Baso # (Auto) 100 (0-100) /uL PT 12.2 (10.1-12.7) SECONDS INR 1.1 (0.9-1.3) APTT 35 D (26.4-36.2) SECONDS Sodium 140 (137-145) mmol/L Potassium 4.0 (3.4-5.1) mmol/L Chloride 104 (98-107) mmol/L Carbon Dioxide 28 (22-32) mmol/L BUN 20 (9-20) mg/dL Creatinine 1.40 H (0.66-1.25) mg/dL Estimated GFR 50.1 L (>60) mL/min BUN/Creatinine Ratio 14.3 (6-22) Glucose 97 (80-110) mg/dL Calcium 9.5 (8.4-10.2) mg/dL Magnesium 2.0 (1.6-2.3) mg/dL Total Bilirubin 0.3 (0.2-1.3) mg/dL AST 26 (17-59) IU/L ALT 22 (<50) IU/L Alkaline Phosphatase 109 (38-126) U/L Total Creatine Kinase 40 L (55-170) U/L CK-MB (CK-2) TNP CK-MB (CK-2) Rel Index TNP Troponin I < 0.012 (0.01-0.034) ng/mL B-Natriuretic Peptide 247 H (<100) Total Protein 8.1 (6.3-8.2) g/dL Albumin 4.0 (3.5-5.0) g/dL Globulin 4.1 (1.7-4.1) g/dL Albumin/Globulin Ratio 1.0 (1.0-2.8) Lipase 109 (23-300) U/L 05/07/19 Range/Units 13:00 WBC (4.5-11.0) X10^3/uL RBC (4.5-5.9) X10^6/uL Hgb (13.5-17.5) g/dL Hct (41-53) % MCV (80-100) fL MCH (26-34) PG MCHC (30-36) % RDW (11.6-14.8) % Plt Count (150-400) X10^3/uL Neut % (Auto) (50-75) % Lymph % (Auto) (25-40) % [place] % (Auto) (3-14) % Eos % (Auto) (2-4) % Baso % (Auto) (0-2) % Neut # (Auto) (8140-2403) /uL Lymph # (Auto) (1564-2352) /uL [place] # (Auto) (0-900) /uL Eos # (Auto) (0-450) /uL Baso # (Auto) (0-100) /uL PT (10.1-12.7) SECONDS INR (0.9-1.3) APTT (26.4-36.2) SECONDS Sodium (137-145) mmol/L Potassium (3.4-5.1) mmol/L Chloride (98-107) mmol/L Carbon Dioxide (22-32) mmol/L BUN (9-20) mg/dL Creatinine (0.66-1.25) mg/dL Estimated GFR (>60) mL/min BUN/Creatinine Ratio (6-22) Glucose (80-110) mg/dL Calcium (8.4-10.2) mg/dL Magnesium (1.6-2.3) mg/dL Total Bilirubin (0.2-1.3) mg/dL AST (17-59) IU/L ALT (<50) IU/L Alkaline Phosphatase (38-126) U/L Total Creatine Kinase (55-170) U/L CK-MB (CK-2) CK-MB (CK-2) Rel Index Troponin I (0.01-0.034) ng/mL B-Natriuretic Peptide 252 H (<100) Total Protein (6.3-8.2) g/dL Albumin (3.5-5.0) g/dL Globulin (1.7-4.1) g/dL Albumin/Globulin Ratio (1.0-2.8) Lipase (23-300) U/L Imaging Data Chest x-ray: Radiologist's Impresson: PROCEDURE: XR CHEST 1V INDICATIONS: chest pain TECHNIQUE: One view of the chest was acquired. COMPARISON: [facility], CT, CT ABDOMEN PELVIS WO CON, 04/15/2019, 8:42. [facility], CR, XR CHEST 2V, 04/14/2019, 12:53. [facility], CR, XR CHEST 1V, 04/17/2019, 8:02. FINDINGS: Surgical changes and devices: None. Lungs and pleura: Lungs are clear. No pleural effusions or pneumothorax. Mediastinum: The cardiac contours are within normal limits. The aorta demonstrates calcification and tortuosity. Bones and chest wall: Age-appropriate bony degenerative changes are seen. No suspicious bony lesions. Overlying soft tissues appear unremarkable. IMPRESSION: Unremarkable portable chest study for age. Resolution of the previously seen small right-sided pleural effusion. Dictated by: Renato Henriquez M.D. on 05/07/2019 at 11:57 ECG Data Attestation: I personally reviewed and interpreted this ECG as follows: Prior ECG tracings: available for review Interpretation: Normal sinus rhythm rate 109 p.r. interval 128 QRS [address] changes or T-wave inversions similar to previous EKGs mild artifact noted as well. MDM Narrative Medical decision making narrative: Patient's palpitations have completely resolved. He apparently supposed to be taking metoprolol not sure that he is taking it due to insurance reasons he is requesting new prescription even though he knows he might not get it filled. Discharge Plan Departure Patient Disposition: Home Clinical Impression: Heart palpitations Discharge Date/Time: 05/07/19 14:09 Instructions: DI for Palpitations Activity Restrictions/Additional Instructions: *You have been diagnosed with heart palpitations *What to do: *Continue to take medications as directed Be sure you are taking metoprolol succinate 50 mg once a day--this will help with her heart palpitations Take atorvastatin 40 mg at bedtime to help with your cholesterol *Follow up with your primary care provider in 2-3 days *Return to ER if you should have increasing heart palpitations, dizziness, lightheadedness, chest pain, shortness of breath or any new, worsening or concerning symptoms. You may also call 911 at any time to receive transport to the emergency department. They are capable of going to the [facility] Prescriptions: New metoprolol succinate 50 mg tablet extended release 24 hr 50 mg PO DAILY Qty: 30 RF: 0 atorvastatin 40 mg tablet 40 mg PO BEDTIME Qty: 30 RF: 0 No Action polyethylene glycol 3350 17 gram Powder In Packet 17 gm PO DAILY Qty: 30 RF: 0 aspirin 81 mg Tablet,Delayed Release (Dr/Ec) 81 mg PO DAILY Qty: 30 RF: 0 tamsulosin [Flomax] 0.4 mg Capsule 0.4 mg PO DAILY Qty: 30 RF: 0 docusate sodium [DOK] 100 mg Capsule 100 mg PO BID Qty: 60 RF: 0 ferrous gluconate 324 mg (38 mg iron) Tablet 324 mg PO DAILY Qty: 30 RF: 0 metoprolol succinate 50 mg tablet extended release 24 hr 50 mg PO DAILY Qty: 30 RF: 0 atorvastatin 40 mg tablet 40 mg PO BEDTIME Qty: 30 RF: 0 Referrals: Jim White MD [Primary Care Provider] -
[2019-05-07 13:00] LABS: Troponin I < 0.012 ng/mL (0.01-0.034)
[2019-05-07 13:15] LABS: B Type Natriuretic Peptide 247 (<100)
[2019-05-07 13:24] LABS: B Type Natriuretic Peptide 252 (<100)
[2019-05-07 13:30] VITALS: BP 129/77; PULSE 97; RESP 15; O2SAT 100
== END 2019-05-07 14:09 | disposition home or self-care (01) ==
PROVIDERS: Emergency Provider Emergency Medicine; PCP Family Medicine
DX: R00.2 Palpitations (principal); R07.9 Chest pain, unspecified; I10 Essential (primary) hypertension; E78.5 Hyperlipidemia, unspecified
CPT/HCPCS: 36415; 71045; 80053; 82550; 83690; 83735; 83880; 84484; 85025; 85610; 85730; 93005; 99284; 99285

== ENCOUNTER → 2019-05-12 08:24 | Outpatient (CLI) | payer MEDICARE, SELFPAY ==
[2019-04-14 18:42] VITALS: BMI 22.7
--- NOTE | 2019-05-12 | DI.US.S_ITS ---
PROCEDURE: US RENAL COMPLETE INDICATIONS: UNSPECIFIED HYDRONEPHROSIS TECHNIQUE: Real-time scanning was performed of the kidneys and bladder, with image documentation. COMPARISON: [facility], US, US RENAL COMPLETE, 04/15/2019, 8:08. [facility], CT, CT ABDOMEN PELVIS WO CON, 04/15/2019, 8:42. [facility], US, US RENAL COMPLETE, 04/15/2019, 14:02. FINDINGS: Kidneys: Kidneys are normal in size. Right kidney measures 11.5 cm long; left kidney measures 10.8 cm long. Right renal cortical thickness is 1.6 cm; left renal cortical thickness is 1.3 cm. Renal cortical echotexture is normal. No hydronephrosis or nephrolithiasis. No suspicious solid mass lesions. A 1.4 cm simple appearing cyst is seen at the lateral inferior aspect of the right kidney. Bladder: A Bradshaw catheter is seen, decompressed bladder. The bladder wall appears thickened at 1.1 cm. Miscellaneous: No free pelvic fluid. IMPRESSION: No hydronephrosis is now seen involving either kidney. Bradshaw catheter, decompressing the bladder. The bladder wall appears thickened. A portion of this apparent thickening may be artifactual, given its decompressed state. 1.4 cm simple appearing right renal cyst incidentally noted. Dictated by: Renato Henriquez M.D. on 05/12/2019 at 9:26 Approved by: Renato Henriquez M.D. on 05/12/2019 at 9:28
== END ==
PROVIDERS: PCP Family Medicine; Visit Provider Urology
DX: N13.30 Unspecified hydronephrosis (principal); R33.9 Retention of urine, unspecified; N28.1 Cyst of kidney, acquired
CPT/HCPCS: 76770

== ENCOUNTER → 2019-05-24 15:17 | Outpatient (CLI) | payer MEDICARE, SELFPAY ==
[2019-04-14 18:42] VITALS: BMI 22.7
[2019-05-24 16:37] LABS: BUN Creatinine Ratio 12.3 (6-22); Blood Urea Nitrogen 16 mg/dL (9-20); Calcium 9.2 mg/dL (8.4-10.2); Carbon Dioxide 27 mmol/L (22-32); Chloride 103 mmol/L (98-107); Estimated Glomerular Filt Rate 54.6 mL/min (>60); Glucose 120 mg/dL (80-110); HEMOLYSIS < 15 (0-50); Potassium 4.6 mmol/L (3.4-5.1); Sodium 141 mmol/L (137-145)
--- NOTE | 2019-06-14 09:33 | ONC.MSW ---
Description: New Referral Navigation: Prostate Cancer Activity: Reviewed referral for medical status, acuity and immediate needs. Forwarded to scheduling for f/u.
== END ==
PROVIDERS: PCP Student in an Organized Health Care Education/Training Program; Referring Provider Internal Medicine Cardiovascular Disease; Visit Provider Internal Medicine Cardiovascular Disease
DX: I42.0 Dilated cardiomyopathy (principal)
CPT/HCPCS: 36415; 80048

== ENCOUNTER → 2019-06-16 10:01 | Outpatient (CLI) | payer MEDICARE, MEDICAID, SELFPAY ==
[2019-04-14 18:42] VITALS: BMI 22.7
[2019-06-16 10:58] LABS: Blood Urea Nitrogen 21 mg/dL (9-20); Calcium 9.2 mg/dL (8.4-10.2); Carbon Dioxide 29 mmol/L (22-32); Chloride 101 mmol/L (98-107); Estimated Glomerular Filt Rate 46.3 mL/min (>60); Glucose 129 mg/dL (80-110); HEMOLYSIS < 15 (0-50); Potassium 4.5 mmol/L (3.4-5.1); Sodium 139 mmol/L (137-145)
== END ==
PROVIDERS: PCP Student in an Organized Health Care Education/Training Program; Referring Provider Internal Medicine Cardiovascular Disease; Visit Provider Internal Medicine Cardiovascular Disease
DX: I10 Essential (primary) hypertension (principal)
CPT/HCPCS: 36415; 80048

== ENCOUNTER → 2019-06-30 09:36 | Outpatient (CLI) | payer MEDICARE, SELFPAY ==
[2019-04-14 18:42] VITALS: BMI 22.7
--- NOTE | 2019-06-30 | DI.NM.S_ITS ---
PROCEDURE: NM BONE SCAN WHOLE BODY RADIOPHARMACEUTICAL: 19.0 mCi Tc-99m MDP IV. INDICATIONS: HX OF PROSTATE CANCER TECHNIQUE: Delayed whole-body scintigrams were obtained approximately 3-4 hours after intravenous injection of radiotracer. Anterior and posterior views were acquired from vertex to feet. Additional left and right oblique views of the pelvis were obtained. COMPARISON: [facility], CT, CT ABDOMEN PELVIS WO CON, 04/15/2019, 8:42. FINDINGS: There are foci of increased activity in the right parieto-occipital area of the skull, T8 vertebral body and the right ishium, suspicious for metastases. Periarticular activity in shoulders, sternoclavicular joints, wrists, and right knee are consistent with degenerative/gastric changes. There is a Bradshaw catheter in the bladder. IMPRESSION: Multiple foci of increased activity in the right parietal occipital area, T8 vertebral body and the right ishium, suspicious for metastases. Dictated by: Odilon Chapman M.D. on 06/30/2019 at 16:16 Approved by: Odilon Chapman M.D. on 06/30/2019 at 17:59
== END ==
PROVIDERS: PCP Student in an Organized Health Care Education/Training Program; Referring Provider Urology; Visit Provider Urology
DX: R59.1 Generalized enlarged lymph nodes (principal); Z85.46 Personal history of malignant neoplasm of prostate
CPT/HCPCS: 78306; A9503

== ENCOUNTER → 2019-07-04 10:57 | Outpatient (CLI) | payer MEDICARE, MEDICAID, SELFPAY ==
[2019-04-14 18:42] VITALS: BMI 22.7
[2019-07-04 12:43] LABS: Add Manual Diff / Slide Review NO; Basophils Absolute Auto 0 /uL (0-100); Basophils Percent Auto 0.6 % (0-2); Eosinophils Absolute Auto 400 /uL (0-450); Eosinophils Percent Auto 4.8 % (2-4); Hematocrit 34.3 % (41-53); Hemoglobin 11.1 g/dL (13.5-17.5); Lymphocytes Absolute Auto 1500 /uL (1100-4500); Lymphocytes Percent Auto 17.8 % (25-40); Mean Corpuscular HGB Conc 32.4 % (30-36); Mean Corpuscular Hemoglobin 25.9 PG (26-34); Mean Corpuscular Volume 79.9 fL (80-100); Monocytes Absolute Auto 900 /uL (0-900); Monocytes Percent Auto 10.6 % (3-14); Neutrophils Absolute Auto 5500 /uL (1500-7000); Neutrophils Percent Auto 66.2 % (50-75); Platelet Count 206 X10^3/uL (150-400); Red Blood Cell Count 4.29 X10^6/uL (4.5-5.9); White Blood Cell Count 8.3 X10^3/uL (4.5-11.0)
[2019-07-04 12:54] LABS: Alanine Aminotransferase 20 IU/L (<50); Albumin 4.4 g/dL (3.5-5.0); Albumin Globulin Ratio 1.1 (1.0-2.8); Alkaline Phosphatase 123 U/L (38-126); Aspartate Aminotransferase 28 IU/L (17-59); Bilirubin Total 0.5 mg/dL (0.2-1.3); Blood Urea Nitrogen 35 mg/dL (9-20); Calcium 9.5 mg/dL (8.4-10.2); Carbon Dioxide 30 mmol/L (22-32); Chloride 102 mmol/L (98-107); Estimated Glomerular Filt Rate 45.6 mL/min (>60); Globulin 3.9 g/dL (1.7-4.1); Glucose 103 mg/dL (80-110); HEMOLYSIS < 15 (0-50); Potassium 4.6 mmol/L (3.4-5.1); Sodium 139 mmol/L (137-145); Total Protein 8.3 g/dL (6.3-8.2)
[2019-07-04 13:24] LABS: Prostate Specific Antigen 32.5 ng/mL (0.10-4.00)
[2019-07-04 13:28] LABS: Ferritin 11 ng/mL (18-464)
== END ==
PROVIDERS: Internal Medicine Hematology & Oncology; PCP Student in an Organized Health Care Education/Training Program; Referring Provider Urology; Visit Provider Urology
DX: C79.82 Secondary malignant neoplasm of genital organs (principal); Z85.46 Personal history of malignant neoplasm of prostate
CPT/HCPCS: 36415; 80053; 82728; 84153; 85025

== ENCOUNTER → 2019-08-19 11:14 | Outpatient (CLI) | payer OTHER, MEDICAID, SELFPAY ==
[2019-04-14 18:42] VITALS: BMI 22.7
[2019-08-19 11:42] LABS: Add Manual Diff / Slide Review NO; Basophils Absolute Auto 0 /uL (0-100); Basophils Percent Auto 0.7 % (0-2); Eosinophils Absolute Auto 200 /uL (0-450); Eosinophils Percent Auto 3.1 % (2-4); Hematocrit 35.3 % (41-53); Hemoglobin 11.3 g/dL (13.5-17.5); Lymphocytes Absolute Auto 1600 /uL (1100-4500); Lymphocytes Percent Auto 23.6 % (25-40); Mean Corpuscular HGB Conc 31.9 % (30-36); Mean Corpuscular Hemoglobin 25.8 PG (26-34); Mean Corpuscular Volume 80.9 fL (80-100); Monocytes Absolute Auto 800 /uL (0-900); Monocytes Percent Auto 11.2 % (3-14); Neutrophils Absolute Auto 4200 /uL (1500-7000); Neutrophils Percent Auto 61.4 % (50-75); Platelet Count 176 X10^3/uL (150-400); Red Blood Cell Count 4.36 X10^6/uL (4.5-5.9); Red Cell Distribution Width 16.7 % (11.6-14.8); White Blood Cell Count 6.8 X10^3/uL (4.5-11.0)
[2019-08-19 12:02] LABS: Alanine Aminotransferase 25 IU/L (<50); Albumin 4.5 g/dL (3.5-5.0); Albumin Globulin Ratio 1.2 (1.0-2.8); Alkaline Phosphatase 114 U/L (38-126); Aspartate Aminotransferase 33 IU/L (17-59); BUN Creatinine Ratio 21.6 (6-22); Bilirubin Total 0.7 mg/dL (0.2-1.3); Blood Urea Nitrogen 33 mg/dL (9-20); Calcium 9.8 mg/dL (8.4-10.2); Carbon Dioxide 26 mmol/L (22-32); Chloride 103 mmol/L (98-107); Estimated Glomerular Filt Rate 45.2 mL/min (>60); Globulin 3.8 g/dL (1.7-4.1); Glucose 92 mg/dL (80-110); HEMOLYSIS < 15 (0-50); Potassium 5.3 mmol/L (3.4-5.1); Sodium 139 mmol/L (137-145); Total Protein 8.3 g/dL (6.3-8.2)
[2019-08-19 12:32] LABS: Prostate Specific Antigen 0.212 ng/mL (0.10-4.00)
== END ==
PROVIDERS: Internal Medicine Hematology & Oncology; PCP Student in an Organized Health Care Education/Training Program; Referring Provider Internal Medicine Cardiovascular Disease; Visit Provider Internal Medicine Cardiovascular Disease
DX: I42.0 Dilated cardiomyopathy (principal); C61 Malignant neoplasm of prostate
CPT/HCPCS: 36415; 80053; 84153; 85025

== ENCOUNTER 2019-08-22 23:33 | Emergency (ER) | payer OTHER, MEDICAID, SELFPAY ==
[2019-04-14 18:42] VITALS: BMI 22.7
[2019-08-22 23:46] VITALS: BP 200/98; PULSE 86; RESP 18; TEMP 36.6; O2SAT 97; BMI 25.7
[2019-08-22] MEDS: LIDOCAINE 2% (UROJET) 5 ML GEL TOP (23:55)
--- NOTE | 2019-08-22 23:59 | ED.MALEGU ---
HPI - Male Genitourinary General Chief complaint: Urogenital-Male Stated complaint: States catheter is plugged Time Seen by Provider: 08/22/19 23:35 Source: patient Mode of arrival: Ambulatory Limitations: no limitations History of Present Illness HPI Narrative: 68M nonsmoker with history of prostate CA presents with difficulty urinating and some suprapubic tenderness over the course of the night. He had had a Engle catheter in place since March and it was removed earlier today. He denies any fever or chills. He denies any nausea, vomiting or diarrhea. He is otherwise well and free of complaint Related Data Home Medications Medication Instructions Recorded Confirmed losartan 25 mg PO DAILY 07/04/19 07/20/19 spironolactone 12.5 mg PO DAILY 07/04/19 07/20/19 bicalutamide 50 mg tablet 50 mg PO DAILY 07/20/19 07/20/19 leuprolide (3 month) 11.25 mg (3 11.25 mg IM [id number] 07/20/19 07/20/19 month) intramuscular syringe kit Previous Rx's Medication Instructions Recorded aspirin 81 mg PO DAILY #30 tab 04/19/19 atorvastatin 40 mg PO BEDTIME #30 tab 04/19/19 ferrous gluconate 324 mg PO DAILY #30 tab 04/19/19 metoprolol succinate 50 mg PO DAILY #30 tab 04/19/19 tamsulosin [Flomax] 0.4 mg PO DAILY #30 cap 04/19/19 cephalexin [Keflex] 500 mg PO QID 7 Days #28 cap 08/23/19 Allergies Allergy/AdvReac Type Severity Reaction Status Date / Time No Known Drug Allergies Allergy Verified 05/07/19 13:02 Review of Systems Constitutional Constitutional: Denies chills, Denies fatigue, Denies fever(s), Denies frequent falls, Denies lethargy and Denies weakness Eyes Eyes: Denies change in vision, Denies eye discharge, Denies irritation and Denies loss of vision ENT Ears, Nose, Mouth, and Throat: Denies change in voice, Denies dizziness, Denies neck pain, Denies sore throat and Denies throat swelling Cardiovascular Cardiovascular: Denies chest pain, Denies irregular heart rhythm, Denies lightheadedness, Denies palpitations, Denies dyspnea, Denies dyspnea on exertion and Denies orthopnea Respiratory Respiratory: Denies cough, Denies dyspnea, Denies dyspnea on exertion and Denies wheezing Gastrointestinal Gastrointestinal: Denies abdominal pain, Denies change in bowel habits, Denies diarrhea, Denies nausea and Denies vomiting Genitourinary Genitourinary: Denies hematuria, Denies flank pain, Denies urinary incontinence and Denies urinary urgency Comments: urinary retention Musculoskeletal Musculoskeletal: Denies back pain, Denies muscle weakness, Denies neck pain, Denies numbness and Denies tingling Integumentary/Breasts Skin/Breast: Denies pruritus, Denies erythema, Denies rash and Denies wounds Neurologic Neurologic: Denies behavioral changes, Denies confusion, Denies dizziness, Denies frequent falls, Denies loss of vision, Denies numbness, Denies tingling and Denies weakness Psychiatric Psychiatric: Denies anxiety, Denies behavioral changes, Denies confusion, Denies depression, Denies homicidal ideation and Denies suicidal ideation Endocrine Endocrine: Denies fatigue, Denies flushing and Denies palpitations Hematologic/Lymphatic Hematologic/Lymphatic: Denies easy bruising Allergic/Immunologic Allergic/Immunologic: Denies urticaria, Denies throat swelling and Denies wheezing Patient History Medical History (Updated 08/23/19 @ 00:23 by Jarvis Torres DO) Chronic kidney disease (CKD) (Acute) Congestive heart failure (Acute) Hyperlipidemia (Acute) Hypertension (Acute) No chronic problems (Resolved) Surgical History (Updated 07/04/19 @ 09:47 by Tara Mayes MD) Hx of hand surgery (Resolved 2001) Family History (Updated 07/04/19 @ 10:36 by Tara Mayes MD) Father Stomach ulcer Social History household members: none Smoking Status: Never smoker Smoking Status: Never smoker alcohol intake frequency: other Substance Use Type: does not use Exam Narrative Exam Narrative: GEN: AOx3 and in mild distress EYES: Pupils are equal, round, and reactive to light and accommodation. Extraoccular muscles are intact bilaterally. There is no subconjunctival hemorrhage or exudate. CHEST: Lungs are clear to auscultation bilaterally and free of wheezes, rales, or rhonchi. Heart rate is regular rhythm, there are no murmurs, clicks, rubs, or gallops. There is no chest wall tenderness. ABD: Abdomen is soft and mildly tender in the suprapubic region. There is no guarding or rebound. Bowel sounds are normal in all 4 quadrants. There is no mass or organomegaly. EXT: Full painless ROM of all extremities with no loss of sensation or strength. SKIN: Warm, pink, and dry. No erythema or rash Initial Vital Signs Initial Vital Signs: Vital Signs Temperature 97.9 F 08/22/19 23:46 Pulse Rate 86 08/22/19 23:46 Respiratory Rate 18 08/22/19 23:46 Blood Pressure 200/98 H 08/22/19 23:46 Pulse Oximetry 97 08/22/19 23:46 Course Course Course Narrative: engle placed, near immediate relief, mildly cloudy urine sent for UA. Orders Ordered: ED Orders 08/23/19 00:05 Urinalysis and Microscopic Stat Urine Culture Stat Discontinued Medications Cefazolin Sodium (Keflex 250 Mg Prepack) 1 bottle MISC SEEINSTR ONE Stop: 08/23/19 00:21 Lidocaine HCl (Urojet) 5 ml TOP NOW ONE Stop: 08/22/19 23:51 Last Admin: 08/22/19 23:55 Dose: 5 ml Documented by: JONY Vital Signs Vital signs: Vital Signs - 8 hr 08/22/19 23:46 Temperature 97.9 F Pulse Rate 86 Respiratory Rate 18 Blood Pressure 200/98 H Pulse Oximetry 97 MDM - Male Genitourinary Lab Data Labs: Lab Results 08/23/19 Range/Units 00:05 Urine Color Yellow Urine Appearance Cloudy Urine pH 7.0 (4.5-8.0) Ur Specific [place] 1.015 (1.000-1.035) Urine Protein 1+ H (Negative) Urine Glucose (UA) Negative (Negative) g/dL Urine Ketones Negative (NEGATIVE) Urine Occult Blood 1+ H (Negative) Urine Nitrate Negative (Negative) Urine Bilirubin Negative (NEGATIVE) Urine Urobilinogen 0.2 (0.2) E.U./dL Ur Leukocyte Esterase 3+ H (NEGATIVE) Urine RBC 10-30/hpf H (0-5/HPF) Urine WBC 30-100/hpf H (0-5/HPF) Ur Squamous Epith Cells 0-1 /hpf (0-5/HPF) Urine Bacteria Many (>30) H (None) Ur Culture Indicated? Specimen cultured Discharge Plan Departure Patient Disposition: Home Clinical Impression: Acute urinary retention Urinary tract infection Qualifiers: Urinary tract infection type: acute cystitis Hematuria presence: without hematuria Qualified Code(s): N30.00 - Acute cystitis without hematuria Instructions: DI for Urinary Retention in Men Activity Restrictions/Additional Instructions: *You have been diagnosed with [acute urinary retention with urinary tract infection] *What to do: *Take medications as directed *Follow up with your primary care provider in 2-3 days, call for an appointment. Let them know you were seen in the Emergency Department and that we ask that you be seen in follow up *Return to ER if you should have any new, worsening or concerning symptoms Prescriptions: New cephalexin [Keflex] 500 mg capsule 500 mg PO QID 7 Days Qty: 28 RF: 0 No Action bicalutamide [Casodex] 50 mg tablet 50 mg PO DAILY RF: 0 Lupron Depot (3 month) 11.25 mg syringe kit 11.25 mg IM [id number] RF: 0 spironolactone 25 mg Tablet 12.5 mg PO DAILY RF: 0 losartan 25 mg Tablet 25 mg PO DAILY RF: 0 aspirin 81 mg Tablet,Delayed Release (Dr/Ec) 81 mg PO DAILY Qty: 30 RF: 0 tamsulosin [Flomax] 0.4 mg Capsule 0.4 mg PO DAILY Qty: 30 RF: 0 ferrous gluconate 324 mg (38 mg iron) Tablet 324 mg PO DAILY Qty: 30 RF: 0 metoprolol succinate 50 mg tablet extended release 24 hr 50 mg PO DAILY Qty: 30 RF: 0 atorvastatin 40 mg tablet 40 mg PO BEDTIME Qty: 30 RF: 0 Referrals: Trey Terrell MD [Primary Care Provider] - Jie Tavarez MD [Non-Staff] -
--- NOTE | 2019-08-23 00:10 | PC.NURSE ---
New engle cath placed, pt tolerated well. Cath drained 400ml cloudy yellow urine and still draining. Urine sample sent to lab.
[2019-08-23 00:14] LABS: Appearance Urine UA CLOUDY; Bilirubin Urine UA NEGATIVE (NEGATIVE); Color Urine UA YELLOW; Glucose Urine UA NEGATIVE (Negative); Ketones Urine UA NEGATIVE (NEGATIVE); Leukocyte Esterase Urine UA 3+ (NEGATIVE); Nitrite Urine UA NEGATIVE (Negative); Occult Blood Urine UA 1+ (Negative); Protein Urine UA 1+ (Negative); Specific Gravity Urine UA 1.015 (1.000-1.035); Urobilinogen Urine UA 0.2 E.U./dL (0.2)
[2019-08-23 00:22] LABS: Bacteria Urine Many (>30); Culture Indicated Urine Specimen Cultured; Squamous Epithelial Cell Urine 0-1 /HPF (0-5/HPF); WBC Urine 30-100/HPF (0-5/HPF)
[2019-08-23 00:24] LABS: RBC Urine 10-30/HPF (0-5/HPF)
[2019-08-23] MEDS: cephALEXin 250 MG PREPACK 1 BOTTLE MISC (00:42)
[2019-08-23 00:50] VITALS: BP 161/82; PULSE 82; RESP 14; O2SAT 100
== END 2019-08-23 00:51 | disposition home or self-care (01) ==
PROVIDERS: Emergency Provider Emergency Medicine; PCP Student in an Organized Health Care Education/Training Program
DX: R33.9 Retention of urine, unspecified (principal); N30.00 Acute cystitis without hematuria
CPT/HCPCS: 51701; 81001; 87077; 87086; 87186; 99283; 99284

== ENCOUNTER → 2019-08-24 11:08 | Outpatient (CLI) | payer OTHER, MEDICAID, SELFPAY ==
[2019-04-14 18:42] VITALS: BMI 22.7
[2019-08-24 15:48] LABS: BUN Creatinine Ratio 26.1 (6-22); Blood Urea Nitrogen 41 mg/dL (9-20); Estimated Glomerular Filt Rate 43.9 mL/min (>60)
== END ==
PROVIDERS: PCP Student in an Organized Health Care Education/Training Program; Referring Provider Urology; Visit Provider Urology
DX: N28.89 Other specified disorders of kidney and ureter (principal)
CPT/HCPCS: 36415; 82565; 84520

== ENCOUNTER → 2019-08-25 12:50 | Outpatient (CLI) | payer OTHER, MEDICAID, SELFPAY ==
[2019-04-14 18:42] VITALS: BMI 22.7
--- NOTE | 2019-08-25 | DI.US.S_ITS ---
PROCEDURE: US RENAL COMPLETE INDICATIONS: OTHER SPECIFIED DISORDERS OF KIDNEY AND URETER TECHNIQUE: Real-time scanning was performed of the kidneys and bladder, with image documentation. COMPARISON: [facility], , RENAL COMPLETE, 05/12/2019, 9:01. FINDINGS: Kidneys: Kidneys are normal in size. Right kidney measures 12.4 cm long; left kidney measures 10.0 cm long. Right renal cortical thickness is 1.9 cm; left renal cortical thickness is 1.3 cm. Renal cortical echotexture is normal. No hydronephrosis. 5-6 mm left renal calculus. Right renal cyst measuring up 1.4 cm. Bladder: The bladder is decompressed due to indwelling catheter therefore unremarkable. There may be bladder wall thickening however limited evaluation given collapsed state. It measures approximately 1.2 cm. Repeat ultrasound with distended bladder or cystoscopy could be performed for further assessment. Miscellaneous: No free pelvic fluid. IMPRESSION: Nonobstructive left renal calculus measuring 5-6 mm. Simple appearing right renal cyst No hydronephrosis Dictated by: Alf Carlson M.D. on 08/25/2019 at 15:46 Approved by: Alf Carlson M.D. on 08/25/2019 at 15:51
== END ==
PROVIDERS: PCP Student in an Organized Health Care Education/Training Program; Referring Provider Urology; Visit Provider Urology
DX: N28.89 Other specified disorders of kidney and ureter (principal); N28.1 Cyst of kidney, acquired; N20.0 Calculus of kidney
CPT/HCPCS: 76770

== ENCOUNTER → 2019-10-27 12:34 | Outpatient (CLI) | payer OTHER, MEDICAID, SELFPAY ==
[2019-04-14 18:42] VITALS: BMI 22.7
[2019-10-27 14:37] LABS: Add Manual Diff / Slide Review NO; Basophils Absolute Auto 0 /uL (0-100); Basophils Percent Auto 0.5 % (0-2); Eosinophils Absolute Auto 100 /uL (0-450); Eosinophils Percent Auto 2.1 % (2-4); Hematocrit 32.8 % (41-53); Hemoglobin 10.7 g/dL (13.5-17.5); Lymphocytes Absolute Auto 1600 /uL (1100-4500); Lymphocytes Percent Auto 23.4 % (25-40); Mean Corpuscular HGB Conc 32.5 % (30-36); Monocytes Absolute Auto 1100 /uL (0-900); Monocytes Percent Auto 15.6 % (3-14); Neutrophils Absolute Auto 4000 /uL (1500-7000); Neutrophils Percent Auto 58.4 % (50-75); Platelet Count 167 X10^3/uL (150-400); Red Blood Cell Count 3.96 X10^6/uL (4.5-5.9); Red Cell Distribution Width 16.2 % (11.6-14.8); White Blood Cell Count 6.9 X10^3/uL (4.5-11.0)
[2019-10-27 15:54] LABS: Alanine Aminotransferase 21 IU/L (<50); Albumin Globulin Ratio 1.2 (1.0-2.8); Alkaline Phosphatase 114 U/L (38-126); Aspartate Aminotransferase 27 IU/L (17-59); BUN Creatinine Ratio 18.9 (6-22); Bilirubin Total 0.4 mg/dL (0.2-1.3); Blood Urea Nitrogen 31 mg/dL (9-20); Calcium 9.5 mg/dL (8.4-10.2); Carbon Dioxide 21 mmol/L (22-32); Chloride 105 mmol/L (98-107); Cholesterol 173 mg/dL (140-199); Estimated Glomerular Filt Rate 41.7 mL/min (>60); Globulin 3.3 g/dL (1.7-4.1); Glucose 132 mg/dL (80-110); HDL Cholesterol 42 mg/dL (40-60); HEMOLYSIS < 15 (0-50); LDL Cholesterol Calculated 97 mg/dL (<100); Potassium 4.8 mmol/L (3.4-5.1); Sodium 138 mmol/L (137-145); Total Protein 7.3 g/dL (6.3-8.2); Triglycerides 170 mg/dL (35-150)
[2019-10-27 16:53] LABS: Free T4, Direct Thyroxine 0.66 ng/dL (0.78-2.19)
== END ==
PROVIDERS: PCP Internal Medicine; Referring Provider Internal Medicine; Visit Provider Internal Medicine
DX: I50.9 Heart failure, unspecified (principal); E78.2 Mixed hyperlipidemia
CPT/HCPCS: 36415; 80053; 80061; 84439; 84443; 85025

== ENCOUNTER → 2019-11-22 14:48 | Outpatient (CLI) | payer OTHER, MEDICAID, SELFPAY ==
[2019-04-14 18:42] VITALS: BMI 22.7
--- NOTE | 2019-11-22 | DI.ECHO.S_ITS ---
[facility] +---------+ : : [address] : : : : [id number] : : : : Phone: [phone]+ Echocardiogram Report + + :Name: CHELSEA HOPKINS Study Date: 11/22/2019 Height: 71 in : :[facility] Weight: 188 lb : : Gender: Male BSA: 2.1 m2 : :: 1950 Age: 68 yrs BP: 126/78 mmHg: :Reason For Study: DILATED CARDIOMYOPATHY : :Ordering Physician: ASHER, : :LOU Performed By: Natalie Park : :Referring: LOU MARTINEZ : + + Interpretation Summary 1) Normal left ventricular size and thickness with low normal systolic function (EF 50-55%). 2) Normal right ventricular size and function. 3) No significant valvular abnormalities. 4) Compared to the Echo done 04/15/2019, LVEF has improved from 25-30% to 50- 55% on this study. Procedure: A two-dimensional transthoracic echocardiogram with color flow and Doppler was performed. The study quality was technically adequate. Comparison is made with the echocardiogram of 04/15/2019. The patient was in sinus rhythm with heart rates between 65-71 bpm during the exam. Left Ventricle: The left ventricle is normal in size and wall thickness. The ejection fraction is estimated to be 50-55%. Diastolic parameters suggest a pseudonormalization pattern, consistent with probable elevated filling pressures. Right Ventricle: The right ventricle is normal in size and function. Atria: The left atrium is moderately dilated. Right atrial size is normal. Chiari network (normal variant) is noted. There is no Doppler evidence for an interatrial shunt. Mitral Valve: The mitral valve leaflets appear borderline thickened, but open well. There is mild mitral regurgitation. Aortic Valve: The aortic valve is trileaflet. The aortic valve opens well. There is no aortic valve stenosis. There is mild aortic regurgitation. Tricuspid Valve: The tricuspid valve is normal in structure and function. There is mild tricuspid regurgitation. The right ventricular systolic pressure is estimated to be at least 27 mmHg based on an estimated right atrial pressure of 3 mm Hg. Pulmonic Valve: The pulmonic valve leaflets are thin and pliable; valve motion is normal. There is mild pulmonic regurgitation. Great Vessels: The aortic root is normal size. The ascending aorta is at the upper limits of normal in size. The IVC is of normal diameter and collapses greater than 50% with a sniff. This suggests a low right atrial pressure of 3 mm Hg. Pericardium/ Pleura There is no pericardial effusion. There is no pleural effusion. MMode/2D Measurements & Calculations LVIDd: 5.2 cm LVOT diam: 2.1 cm LVIDs: 4.0 cm Ao root diam: 2.9 cm FS: 22.8 % asc Aorta Diam: 3.4 cm EPSS: 1.5 cm Ao Arch Diam (Prox Trans): 2.9 cm IVSd: 0.85 cm LVPWd: 0.77 cm LV evangelista. diameter/BSA (cm/m^2): 2.5 LV sys. diameter/BSA (cm/m^2): 2.0 LA A2 area: 26.5 cm2 RA long axis: 6.1 cm LA A4 area: 27.9 cm2 RA area: 20.9 cm2 LA length (vol): 6.5 cm RA vol: 61.0 ml LA vol: 96.6 ml RA : 29.7 ml/m2 LA vol index: 47.0 ml/m2 IVC diam: 1.2 cm RVD1 (basal): 3.6 cm TAPSE: 2.7 cm Doppler Measurements & Calculations Ao V2 max: 160.4 cm/sec LVOT Max Kiran: 90.4 cm/sec Ao V2 mean: 98.1 cm/sec LV V1 max P.3 mmHg Ao max P.3 mmHg LV V1 VTI: 17.6 cm Ao mean P.7 mmHg DONATO(I,D): 1.9 cm2 Ao V2 VTI: 31.7 cm DONATO(V,D): 2.0 cm2 sev ratio: 0.56 DONATO indexed to BSA (cm^2/m^2): 0.94 AI P1/2t: 674.3 msec AI dec slope: 185.8 cm/sec2 MV E max kiran: 65.9 cm/sec TR max kiran: 242.2 cm/sec MV A max kiran: 125.1 cm/sec TR max P.5 mmHg MV E/A: 0.53 PA V2 max: 90.5 cm/sec Med Peak E' Kiran: 4.7 cm/sec PA V2 mean: 62.6 cm/sec E/E' med: 14.1 PA mean P.7 mmHg Lat Peak E' Kiran: 4.4 cm/sec PA pr(Accel): 29.3 mmHg E/E' lat: 15.0 E/e' average: 14.6 MV dec time: 0.17 sec SV(LVOT): 61.1 ml Reading Physician:12:06 PM
== END ==
PROVIDERS: PCP Internal Medicine; Referring Provider Internal Medicine Cardiovascular Disease; Visit Provider Internal Medicine Cardiovascular Disease
DX: I08.3 Combined rheumatic disorders of mitral, aortic and tricuspid valves (principal); I42.0 Dilated cardiomyopathy
CPT/HCPCS: 93306

== ENCOUNTER → 2020-01-27 10:23 | Outpatient (CLI) | payer OTHER, MEDICAID, SELFPAY ==
[2019-04-14 18:42] VITALS: BMI 22.7
[2020-01-27 10:59] LABS: Alanine Aminotransferase 16 IU/L (<50); Albumin 4.1 g/dL (3.5-5.0); Albumin Globulin Ratio 1.1 (1.0-2.8); Alkaline Phosphatase 108 U/L (38-126); Aspartate Aminotransferase 26 IU/L (17-59); BUN Creatinine Ratio 15.6 (6-22); Bilirubin Total 0.5 mg/dL (0.2-1.3); Blood Urea Nitrogen 21 mg/dL (9-20); Calcium 9.5 mg/dL (8.4-10.2); Carbon Dioxide 28 mmol/L (22-32); Chloride 103 mmol/L (98-107); Estimated Glomerular Filt Rate 52.1 mL/min (>60); Globulin 3.7 g/dL (1.7-4.1); Glucose 130 mg/dL (80-110); HEMOLYSIS < 15 (0-50); Potassium 4.4 mmol/L (3.4-5.1); Sodium 137 mmol/L (137-145); Total Protein 7.8 g/dL (6.3-8.2)
[2020-01-27 11:32] LABS: Prostate Specific Antigen < 0.064 ng/mL (0.10-4.00)
== END ==
PROVIDERS: PCP Internal Medicine; Referring Provider Internal Medicine; Visit Provider Urology
DX: C79.82 Secondary malignant neoplasm of genital organs (principal); Z85.46 Personal history of malignant neoplasm of prostate
CPT/HCPCS: 36415; 80053; 84153

== ENCOUNTER → 2020-03-21 12:02 | Outpatient (CLI) | payer OTHER, MEDICAID, SELFPAY ==
[2019-04-14 18:42] VITALS: BMI 22.7
[2020-03-21 12:16] LABS: Add Manual Diff / Slide Review NO; Basophils Absolute Auto 0 /uL (0-100); Basophils Percent Auto 0.5 % (0-2); Eosinophils Absolute Auto 200 /uL (0-450); Eosinophils Percent Auto 2.4 % (2-4); Hematocrit 35.1 % (41-53); Hemoglobin 11.3 g/dL (13.5-17.5); Lymphocytes Absolute Auto 1700 /uL (1100-4500); Mean Corpuscular HGB Conc 32.1 % (30-36); Mean Corpuscular Hemoglobin 26.4 PG (26-34); Monocytes Absolute Auto 700 /uL (0-900); Monocytes Percent Auto 10.4 % (3-14); Neutrophils Absolute Auto 4400 /uL (1500-7000); Neutrophils Percent Auto 62.7 % (50-75); Platelet Count 161 X10^3/uL (150-400); Red Blood Cell Count 4.29 X10^6/uL (4.5-5.9); Red Cell Distribution Width 15.9 % (11.6-14.8)
[2020-03-21 12:28] LABS: Alanine Aminotransferase 17 IU/L (<50); Albumin 4.2 g/dL (3.5-5.0); Albumin Globulin Ratio 1.1 (1.0-2.8); Alkaline Phosphatase 118 U/L (38-126); Aspartate Aminotransferase 26 IU/L (17-59); BUN Creatinine Ratio 17.5 (6-22); Bilirubin Total 0.5 mg/dL (0.2-1.3); Blood Urea Nitrogen 24 mg/dL (9-20); Calcium 9.5 mg/dL (8.4-10.2); Carbon Dioxide 26 mmol/L (22-32); Chloride 105 mmol/L (98-107); Estimated Glomerular Filt Rate 51.2 mL/min (>60); Globulin 3.7 g/dL (1.7-4.1); Glucose 121 mg/dL (80-110); HEMOLYSIS < 15 (0-50); Potassium 4.2 mmol/L (3.4-5.1); Sodium 138 mmol/L (137-145); Total Protein 7.9 g/dL (6.3-8.2)
[2020-03-21 12:59] LABS: Prostate Specific Antigen < 0.064 ng/mL (0.10-4.00)
[2020-03-21 13:01] LABS: Testosterone 9.79 ng/dL (71.8-623)
== END ==
PROVIDERS: PCP Internal Medicine; Referring Provider Internal Medicine; Visit Provider Internal Medicine
DX: C79.82 Secondary malignant neoplasm of genital organs (principal)
CPT/HCPCS: 36415; 80053; 84153; 84403; 85025

== ENCOUNTER → 2020-05-15 10:29 | Outpatient (CLI) | payer OTHER, MEDICAID, SELFPAY ==
[2019-04-14 18:42] VITALS: BMI 22.7
--- NOTE | 2020-05-15 | DI.CT.S_ITS ---
PROCEDURE: CT ABDOMEN PELVIS WO/W CON INDICATIONS: Gross hematuria TECHNIQUE: Optional 5 mm thick noncontrast images acquired from the diaphragm to the symphysis pubis. After the administration of intravenous contrast, 5 mm thick images acquired from the diaphragm to the symphysis pubis after a 10-minute delay. 2 mm thick coronal and sagittal reformats were then performed of the kidneys and ureters. For radiation dose reduction, the following was used: automated exposure control, adjustment of mA and/or kV according to patient size. COMPARISON: [facility], CT, CT ABDOMEN PELVIS WO CON, 04/15/2019, 8:42. FINDINGS: Image quality: Excellent. Lung bases: There is mild dependent atelectasis bilaterally. There is a small hiatal hernia. Heart size is normal. Urinary system: There is a small calcification within the left kidney measuring approximately 3 mm which may represent a nonobstructing stone. Kidneys demonstrate no hydronephrosis. Mild nonspecific perinephric stranding is demonstrated bilaterally. There is symmetric bilateral renal enhancement. A cyst is present in the inferior pole of the right kidney. Renal calyces appear normal in morphology when filled with contrast without suspicious filling defects. Opacified portions of both ureters demonstrate normal caliber. No calcified bladder stones. There is concentric bladder wall thickening and trabeculation with mild fat stranding. The prostate appears decreased in size compared to the prior study. Other solid organs: A few small hypodense foci are redemonstrated within the liver, too small to characterize but likely representing cysts. There is a calcified gallstone within a nondistended gallbladder. No associated wall thickening or pericholecystic fluid. Biliary system is non-dilated. Pancreas enhances normally. No peripancreatic fat stranding or fluid collections. No pancreatic duct dilatation. The spleen is normal in size. No adrenal nodules. Peritoneum and bowel: Bowel loops demonstrate normal wall thickness and caliber. There is colonic diverticulosis without acute diverticulitis. No free fluid or air. Nodes and vessels: No retroperitoneal or mesenteric adenopathy by size criteria. Aorta and inferior vena cava are normal in size. Abdominal wall: No ventral hernias. Pelvis: No pathologic free pelvic fluid. No inguinal hernias or adenopathy. Bones: No suspicious bony lesions. No vertebral body compression fractures. IMPRESSION: 1. Small calcification in the left kidney compatible with a nonobstructing renal stone versus dystrophic calcification. 2. No evidence of hydronephrosis or suspicious filling defects in the renal collecting systems. 3. Concentric bladder wall thickening and trabeculation suggestive of sequelae of chronic bladder outlet obstruction. Dictated by: Braxton Benitez M.D. on 05/15/2020 at 17:16 Approved by: Braxton Benitez M.D. on 05/15/2020 at 17:23
== END ==
PROVIDERS: PCP Internal Medicine; Referring Provider Urology; Visit Provider Urology
DX: R31.0 Gross hematuria (principal); K44.9 Diaphragmatic hernia without obstruction or gangrene; N20.0 Calculus of kidney; K57.90 Diverticulosis of intestine, part unspecified, without perforation or abscess without bleeding; N28.1 Cyst of kidney, acquired; K80.20 Calculus of gallbladder without cholecystitis without obstruction; N32.89 Other specified disorders of bladder
CPT/HCPCS: 74178; Q9967

== ENCOUNTER → 2020-06-21 08:13 | Outpatient (CLI) | payer OTHER, MEDICAID, SELFPAY ==
[2019-04-14 18:42] VITALS: BMI 22.7
--- NOTE | 2020-06-21 | DI.MRI.S_ITS ---
PROCEDURE: MR LUMBAR SPINE WO CON INDICATIONS: LOW BACK PAIN TECHNIQUE: Noncontrast sagittal T1 spin echo and T2 fast echo, sagittal STIR, axial T1 and T2 fast spin echo through the lumbar spine. In cases with scoliosis, additional coronal T2 fast spin echo may be performed. COMPARISON: [facility], CT, CT ABDOMEN PELVIS WO/W CON, 05/15/2020, 10:36. FINDINGS: Image quality: Excellent. Alignment and Curvature: 5 lumbar type vertebral bodies are present by CT. Loss of normal lumbar lordosis. Mild grade 1 retrolisthesis of L2 on L3, L3 on L4, and L5 on S1. Bone Marrow: Marrow is of normal overall signal. No acute vertebral body compression fractures. There is mild reactive signal within the endplates adjacent to the L1-L2, L2-L3, L3-L4, L4-L5, and L5-S1 intervertebral discs. Spinal Cord: Conus medullaris terminates at the mid L1 level. Visualized cord demonstrates normal signal and size. Paraspinous Soft Tissues: No paravertebral masses. T12-L1: Normal appearance. L1-L2: Mild disc desiccation. Mild facet and ligamentum flavum hypertrophy. No significant canal, or foraminal stenosis. L2-L3: Mild disc desiccation and diffuse disc bulge. Mild facet and ligamentum flavum hypertrophy. Mild epidural lipomatosis. Mild canal stenosis. Mild bilateral foraminal stenosis. L3-L4: Mild disc height loss. Moderate disc desiccation. Mild diffuse disc bulge. Mild facet and ligamentum flavum hypertrophy. Mild epidural lipomatosis. Moderate canal stenosis. Moderate left and mild right foraminal stenosis. L4-L5: Moderate disc height loss and desiccation. Mild diffuse disc bulge. Mild facet and ligamentum flavum hypertrophy. Mild epidural lipomatosis. Severe canal stenosis. Moderate right greater than left subarticular foraminal stenosis. L5-S1: Moderate disc height loss and desiccation. Mild diffuse disc bulge. Mild facet hypertrophy. Moderate epidural lipomatosis. Moderate canal stenosis. Moderate left and severe right foraminal stenosis. Right L5 nerve root compression. IMPRESSION: 1. Multilevel degenerative disc and facet disease, as well as ligamentum flavum hypertrophy and epidural lipomatosis. 2. Multilevel canal stenoses, worst at L4-L5, where there is severe canal stenosis. Moderate canal stenosis at L3-L4 and L5-S1. 3. Multilevel foraminal stenoses, worst at L5-S1 where there is associated intraforaminal nerve root compression. Recommend correlation with clinical symptoms to ascertain relevance of this finding. Dictated by: Oscar Hsu M.D. on 06/21/2020 at 8:48 Approved by: Oscar Hsu M.D. on 06/21/2020 at 8:52
== END ==
PROVIDERS: PCP Internal Medicine; Referring Provider Internal Medicine; Visit Provider Internal Medicine
DX: M54.5 Low back pain (principal); M51.36 Other intervertebral disc degeneration, lumbar region; M51.37 Other intervertebral disc degeneration, lumbosacral region; M48.061 Spinal stenosis, lumbar region without neurogenic claudication; M48.07 Spinal stenosis, lumbosacral region; E88.2 Lipomatosis, not elsewhere classified
CPT/HCPCS: 72148

== ENCOUNTER → 2020-07-27 20:10 | Outpatient (ROUT) | payer OTHER, MEDICAID, SELFPAY ==
[2019-04-14 18:42] VITALS: BMI 22.7
== END ==
PROVIDERS: PCP Internal Medicine; Visit Provider Internal Medicine
DX: N39.0 Urinary tract infection, site not specified (principal)
CPT/HCPCS: 87077; 87086; 87186

== ENCOUNTER → 2020-09-21 14:32 | Outpatient (CLI) | payer OTHER, MEDICAID, SELFPAY ==
[2019-04-14 18:42] VITALS: BMI 22.7
--- NOTE | 2020-09-21 | DI.RAD.S_ITS ---
PROCEDURE: XR LUMBAR SPINE 2-3V INDICATIONS: Low Back Pain TECHNIQUE: 3 views of the lumbar spine were acquired. COMPARISON: [facility], MR, MR LUMBAR SPINE WO CON, 06/21/2020, 8:20. FINDINGS: Bones: 5 [id number] vertebrae are present. Advanced multilevel degenerative disc space loss. Multilevel lower lumbar facet arthropathy. No vertebral body compression fractures. No suspicious bony lesions. Soft tissues: Overlying bowel gas pattern is normal. No suspicious soft tissue calcifications. IMPRESSION: Multilevel degenerative disc space loss and facet arthropathy. No evidence acute bony abnormality of the lumbar spine. If clinical suspicion and/or symptoms persist, further assessment with repeat plain films, or advanced imaging (e.g., CT, MRI, or bone scan) may be helpful for further assessment. Dictated by: Julian Mercedes M.D. on 09/21/2020 at 15:35 Approved by: Julian Mercedes M.D. on 09/21/2020 at 15:37
== END ==
PROVIDERS: PCP Internal Medicine; Referring Provider Internal Medicine; Visit Provider Internal Medicine
DX: M54.5 Low back pain (principal); M47.816 Spondylosis without myelopathy or radiculopathy, lumbar region
CPT/HCPCS: 72100

== ENCOUNTER → 2020-10-31 09:40 | Outpatient (CLI) | payer OTHER, MEDICAID, SELFPAY ==
[2019-04-14 18:42] VITALS: BMI 22.7
[2020-10-31 11:17] LABS: COVID19 -Nasal RAPID Negative (Negative)
== END ==
PROVIDERS: PCP Internal Medicine; Visit Provider Specialist
DX: Z20.822 Contact with and (suspected) exposure to COVID-19 (principal)
CPT/HCPCS: 87635; C9803

== ENCOUNTER 2020-11-01 07:05 | Day surgery (SDC) | payer OTHER, MEDICAID, SELFPAY ==
[2019-04-14 18:42] VITALS: BMI 22.7
[2020-11-01] VITALS (7 sets, daily range): BP systolic 115–128; BP diastolic 68–78; PULSE 74–107; RESP 12–18; TEMP 36–36.6; O2SAT 96–98; BMI 27.8
--- NOTE | 2020-11-01 | PATH_ITS ---
[facility] Accession Number: [id number] . 01 Material submitted: . PART A: stomach - GASTRIC ANTRUM BIOPSY PART B: esophagus, E-G Junction - GE JUNCTION PART C: colon - 20CM COLON POLYP PART D: colon - 90CM COLON POLYP PART E: colon - 100CM COLON LESION PART F: cecum - CECUM POLYP PART G: colon - ASCENDING COLON POLYP X2 PART H: colon - 30CM COLON POLYP X2 . 01 Clinical history: . E: 100CM COLON LESION, DIVERTICULITIS VS TUMOR TRANSVERSE COLON NEAR HEPATIC FLEXURE . 02 Diagnosis: A. Stomach, Antrum, Biopsy: Antral mucosa with mild chronic gastritis and focal features suggestive of nearby erosion. Negative for Helicobacter by immunohistochemistry. Negative for intestinal metaplasia. Negative for dysplasia and malignancy. . B. Gastroesophageal Junction, Biopsy: Squamocolumnar junctional mucosa with specialized intestinal metaplasia, consistent with Moya's esophagus. Negative for dysplasia and malignancy. . C. Colon, 20 cm Polyp, Biopsy: Inflammatory polyp. . D. Colon, 90 cm Polyp, Biopsy: Tubular adenoma. . E. Colon, 100 cm Lesion, Biopsy: Mildly to moderately active colitis. Please see comment. Negative for granulomas, dysplasia, and malignancy. . F. Cecum, Polyp, Biopsy: Tubular adenoma. . G. Ascending Colon, Polyp x2, Biopsy: Tubular adenoma in one of four fragments. Benign lymphoid aggregate in two fragments. . H. Colon, 30 cm Polyp x2, Biopsies: Tubular adenoma in three of four fragments. [facility] 11/07/2020 1444 Local . 02 Comment: E. The colon lesion at 100 cm shows mild to moderate neutrophilic activity, including cryptitis and crypt abscesses without features of chronic colitis, including no branched crypt architecture. There are mild extravasated red blood cells in the lamina propria. No obvious viral cytopathic effects or parasitic organisms are identified. The differential diagnosis includes infection, medication-related mucosal injury, diverticular disease-associated colitis and idiopathic inflammatory bowel disease. Early ischemic changes cannot be entirely excluded. . 02 Electronically signed: . Sharon Buchanan MD, Pathologist NPI- [id number] . 01 Gross description: . Part A: GASTRIC ANTRUM BIOPSY: Received in formalin are 4 fragment(s) of gonzales, soft tissue measuring 0.4 x 0.2 x 0.2 cm to 0.3 x 0.2 x 0.2 cm submitted entirely in 1 cassette(s) Part B: GE JUNCTION: Received in formalin are 4 fragment(s) of gonzales, soft tissue measuring 0.4 x 0.2 x 0.1 cm to 0.2 x 0.2 x 0.1 cm submitted entirely in 1 cassette(s) Part C: 20CM COLON POLYP: Received in formalin is 1 fragment(s) of gonzales, soft tissue measuring 0.6 x 0.3 x 0.3 cm submitted entirely in 1 cassette(s) Part D: 90CM COLON POLYP: Received in formalin are 4 fragment(s) of gonzales, soft tissue measuring 0.5 x 0.4 x 0.3 cm to 0.2 x 0.1 x 0.1 cm submitted entirely in 1 cassette(s) Part E: 100CM COLON LESION: Received in formalin are 4 fragment(s) of gonzales, soft tissue measuring 0.5 x 0.2 x 0.2 cm to 0.3 x 0.2 x 0.1 cm submitted entirely in 1 cassette(s) Part F: CECUM POLYP: Received in formalin are 2 fragment(s) of gonzales, soft tissue measuring 0.4 x 0.3 x 0.3 cm to 0.3 x 0.3 x 0.3 cm submitted entirely in 1 cassette(s) Part G: ASCENDING COLON POLYP X2: Received in formalin are 3 fragment(s) of gonzales, soft tissue measuring 0.6 x 0.5 x 0.4 cm to 0.4 x 0.3 x 0.1 cm submitted entirely in 1 cassette(s) Part H: 30CM COLON POLYP X2: Received in formalin are 4 fragment(s) of gonzales, soft tissue measuring 1.8 x 1.2 x 1.0 cm to 0.2 x 0.2 x 0.1 cm which is inked, bisected and submitted entirely in 2 cassette(s) /DONATO 11/02/2020 0435 Local . 02 Microscopic: . A. An immunohistochemical stain was performed to evaluate for Helicobacter organisms and is negative. The control stain showed appropriate reactivity. . E. Additional levels were examined. . . . * This test was developed and its performance characteristics determined by [facility]. It has not been cleared or approved by the U.S. Food and Drug Administration. The FDA has determined that such clearance or approval is not necessary. This test is used for clinical purposes. It should not be regarded as investigational or for research. . 02 Pathologist provided ICD-10: K22.70, D12.6, D12.0, D12.2 . 02 CPT . 330204, 053151, 189591, 093573, 797476, [id number], 700820, 979104, [id number] Performed at: 01 [facility] [address] [place] [address], [place], [place] [id number] MD Braxton Rosenberg MD Phone: [phone] Performed at: 02 [facility] [address] [place], [place] [id number] MD Sharon Buchanan MD Phone: [phone]
[2020-11-01] MEDS: LACTATED RINGERS 1,000 ML 100 ML IV (07:32)
--- NOTE | 2020-11-01 09:16 | PM.PREOP ---
Pre-operative Note COVID-19 COVID-19 status: Negative Result date/Date tested (Pos, Neg/Pending): 10/31/20 Interval Note History & Physical reviewed/Exam performed by Physician: Yes Changes to H&P: No ASA Class (for procedural sedation): III
[2020-11-01] MEDS: LIDOCAINE 4% SOLN 50 ML 20 ML TOP (09:25)
[2020-11-01] MEDS: GLUCAGON,HUMAN RECOMBINANT 1 MG/ML VIAL IV (09:45)
[2020-11-01] MEDS: MIDAZOLAM 5 MG/5 ML VIAL IV (09:57)
[2020-11-01] MEDS: fentaNYL 250 MCG/5 ML INJ IV (09:57)
--- NOTE | 2020-11-01 10:40 | PM.OP.ENDO ---
Operative Date/Time/Diagnoses Date of procedure: 11/01/20 Time of procedure: 10:41 Pre-op diagnosis: Anemia Post-op diagnosis: same (Multiple polyps and a possible tumor versus diverticulitis.) Procedure & Clinicians Study performed: EGD with cold biopsy. Colonoscopy with cold biopsy, hot snare polypectomy(multiple) and injection of Mckenzie ink Same procedure as scheduled: Yes Indications: Iron deficient anemia Surgeon: Daren Reyes Procedure Notes SCOAP/Timeout: Performed Procedure in detail: Patient was placed in left lateral decubitus position underwent IV sedation directed by the surgeon consisting of fentanyl and Versed. Bite block was inserted. Scope was advanced under direct vision into the esophagus. Vocal cord area was normal in appearance. GE junction noted at 35 cm from the incisors. There was just a slight amount of irregularity there. The stomach insufflated well. There was some mild antritis. The pyloric channel was widely patent. The duodenum was examined to the 4th part. In the 2nd part of the duodenum there was a very large diverticulum which contained some food. I saw no inflammation there however. This appeared to be on the medial wall. Scope was brought back into the stomach and random biopsies were taken of the antrum. Scope was retroflexed in the proximal stomach was normal in appearance. There was no evidence of a hiatal hernia. Scope was brought up into the GE junction area were random biopsies were taken of the irregular areas. The scope was removed the patient tolerated the procedure well. The patient was repositioned and underwent additional IV sedation directed by the surgeon consisting of fentanyl and Versed. Digital exam was unremarkable though I could not feel anything but the very distal prostate.. The scope was inserted and advanced through the rectum into the sigmoid, descending, transverse, and ascending colon. I noted 2 polyps going in. Small polyp at 20 cm and a very large polyp at about 30 cm. Continuing onward identified a rather large irregularity and compressing it about a 3rd or more of the circumference of the colon. This was in a field of diverticulum in the proximal transverse colon. Was not far from the hepatic flexure. I biopsied this area. I continued on into the ascending colon and cecum. The cecum was identified by the ileocecal valve the his pannus he will opening. There was a small polyp in the cecum which I biopsied and removed. In the ascending colon there were 2 polyps. They were small but 1 was snared and 1 biopsied and removed. I a brought the scope just distal to the lesion in the proximal transverse colon and injected Mckenzie ink and 3 areas just distal to the lesion. I continued out word and identified another small polyp at 90 cm from the anal verge which was removed. I continued outward noting extensive diverticulosis in the sigmoid colon. At 30 cm there was a large polyp on a stalk which are snared and removed. I had to use a basket to retrieve it ultimately. I injected ink into some areas just distal to this lesion. Also there was a smaller polyp at 20 cm which I hot snared and removed. There was no bleeding from any of the sites despite the patient's use of Eliquis.. The scope ultimately was retroflexed in the rectum. The appearance was normal. The scope was removed and the patient tolerated the procedure well. The prep was very good. Scope withdrawal time: A total of 50 minutes Sedation minutes: 63 Findings: polyp, possible cancer and other findings (Duodenal diverticulum.) Specimen(s): other (Polyps and biopsies) Complications: none Post-procedure Recommendations: Will call with biopsy results Follow up: weeks Disposition: PACU
== END 2020-11-01 11:28 | disposition home or self-care (01) ==
PROVIDERS: PCP Internal Medicine; Referring Provider Specialist; Visit Provider Specialist
PROC: 0DJ08ZZ Inspection of Upper Intestinal Tract, Via Natural or Artificial Opening Endoscopic (ICD-10-PCS; CPT 43235; principal; 2020-11-01 08:30)
PROC: 0DJD8ZZ Inspection of Lower Intestinal Tract, Via Natural or Artificial Opening Endoscopic (ICD-10-PCS; CPT 45378; 2020-11-01 08:30)
DX: D50.9 Iron deficiency anemia, unspecified (principal); K57.30 Diverticulosis of large intestine without perforation or abscess without bleeding; N18.9 Chronic kidney disease, unspecified; I50.9 Heart failure, unspecified; E78.5 Hyperlipidemia, unspecified; I10 Essential (primary) hypertension; K29.50 Unspecified chronic gastritis without bleeding; K22.70 Barrett's esophagus without dysplasia; D12.6 Benign neoplasm of colon, unspecified; K52.9 Noninfective gastroenteritis and colitis, unspecified; D12.0 Benign neoplasm of cecum; D12.2 Benign neoplasm of ascending colon
CPT/HCPCS: 45385; 45380; 45381; 43239; 99152; 99153; J1610; J2250; J3010

== ENCOUNTER → 2020-11-22 09:37 | Outpatient (CLI) | payer OTHER, MEDICAID, SELFPAY ==
[2019-04-14 18:42] VITALS: BMI 22.7
[2020-11-22 12:04] LABS: Add Manual Diff / Slide Review NO; Basophils Absolute Auto 0 /uL (0-100); Basophils Percent Auto 0.5 % (0-2); Eosinophils Absolute Auto 100 /uL (0-450); Eosinophils Percent Auto 1.9 % (2-4); Hematocrit 35.6 % (41-53); Hemoglobin 11.3 g/dL (13.5-17.5); Lymphocytes Absolute Auto 1400 /uL (1100-4500); Lymphocytes Percent Auto 20.8 % (25-40); Mean Corpuscular HGB Conc 31.7 % (30-36); Mean Corpuscular Hemoglobin 25.1 PG (26-34); Mean Corpuscular Volume 79.2 fL (80-100); Monocytes Absolute Auto 700 /uL (0-900); Monocytes Percent Auto 11.4 % (3-14); Neutrophils Absolute Auto 4300 /uL (1500-7000); Neutrophils Percent Auto 65.4 % (50-75); Platelet Count 143 X10^3/uL (150-400); Red Cell Distribution Width 21.3 % (11.6-14.8); White Blood Cell Count 6.6 X10^3/uL (4.5-11.0)
[2020-11-22 12:22] LABS: Alanine Aminotransferase 17 IU/L (<50); Albumin 3.9 g/dL (3.5-5.0); Albumin Globulin Ratio 1.1 (1.0-2.8); Alkaline Phosphatase 86 U/L (38-126); Aspartate Aminotransferase 28 IU/L (17-59); BUN Creatinine Ratio 15.5 (6-22); Bilirubin Total 0.4 mg/dL (0.2-1.3); Blood Urea Nitrogen 18 mg/dL (9-20); Calcium 9.3 mg/dL (8.4-10.2); Carbon Dioxide 25 mmol/L (22-32); Chloride 106 mmol/L (98-107); Cholesterol 141 mg/dL (140-199); Estimated Glomerular Filt Rate > 60.0 mL/min (>60); Globulin 3.4 g/dL (1.7-4.1); Glucose 103 mg/dL (80-110); HDL Cholesterol 36 mg/dL (40-60); HEMOLYSIS < 15 (0-50); LDL Cholesterol Calculated 61 mg/dL (<100); Potassium 4.4 mmol/L (3.4-5.1); Sodium 138 mmol/L (137-145); Total Protein 7.3 g/dL (6.3-8.2); Triglycerides 222 mg/dL (35-150)
[2020-11-22 12:29] LABS: Anisocytosis 2+
[2020-11-22 12:30] LABS: Hypochromasia 1+
[2020-11-22 14:42] LABS: Thyroid Stimulating Hormone 5.67 uIU/mL (0.47-4.68)
== END ==
PROVIDERS: PCP Internal Medicine; Referring Provider Internal Medicine; Visit Provider Internal Medicine
DX: I10 Essential (primary) hypertension (principal); E11.9 Type 2 diabetes mellitus without complications; I11.9 Hypertensive heart disease without heart failure
CPT/HCPCS: 36415; 80053; 80061; 84443; 85025; 87086

== ENCOUNTER 2021-02-14 16:45 | Outpatient (RCR) | payer OTHER, MEDICAID, SELFPAY ==
[2019-04-14 18:42] VITALS: BMI 22.7
--- NOTE | 2020-08-21 17:20 | PT.OIE ---
Current Diagnoses Low back pain (08/21/20) Difficulty in walking, not elsewhere classified (08/21/20) Abnormal posture (08/21/20) Weakness (08/21/20) Past Medical History (Last Updated 07/04/19 @ 10:35 by Tara Mayes MD) Chronic kidney disease (CKD) Congestive heart failure Hyperlipidemia Hypertension No chronic problems Past Surgical History (Last Reviewed 05/07/19 @ 13:15 by Maria Dolores Burr DO) Hx of hand surgery (2001) Visit Care Team Role Provider Type Avila Oliveira MD Attending Provider Physician Primary Care Provider Referring Provider Specialty: Internal Medicine Address: [address] [place] [address], [facility] Email: [email or web address] Physical Therapy Initial Evaluation PT-OP-A Visit Information Start: 08/07/20 09:45 Freq: Status: Active Protocol: Document 08/21/20 10:02 [facility] (Rec: 08/21/20 12:07 [facility] [id number]) Out-Patient Physical Therapy Visit Information Visit Information Visit Type Initial Evaluation Visit Start Time 11:22 Visit Stop Time 12:02 Total Visit Minutes 40 Visit Number 1 Number of SURVEY MANAGER Visits 0 PT-OP-B Current Condition Start: 08/07/20 09:45 Freq: Status: Active Protocol: Document 08/21/20 10:02 [facility] (Rec: 08/21/20 12:07 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 On admitted to ICU for anxiety, depression and overflow of fluids and [facility] on Apr 14, 2019 and spent 5 days there then did rehab at [facility] for 18 days. He has been seeing mult MDs since then (quantitative developer, Dr. Terrell- director manufacturing engineering, now Dr. Oliveira, then Dr. Aguirre-Oncologolispaula, and another Oncologist in [facility]). He was told he messed up his bladder and kidneys. On August he was referred to [facility] until a month ago, he transferred care here for PT. He is going to see Pain management MD on September 24. He saw an Ortho surgeon and did a MRI of back which saw compressed disc. L&I wants him to go to [facility] to see MD. Pt notes he is having to work with attornies d/t his prior employer denying him working there. Employer now is finally saying he did work there. Pt is supposed to see ortho in [facility] September 23 but they have cancelled this last min 8 times already. Pt reports post neck pain comes and goes and has pain into shoulders and B upper arms. he notes he has trouble in his back even bending over to get to get to socks/shoes. Pt reprots getting exhausted a lot. Back can get so painful with lifting that he can barely move after. Pt reprots MDs are unsure if he has prostate cancer but are treating him w/ meds. He is on a lot of meds for his heart. Pt reprots he is taking an injection. 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 He has been very depressed since this injury d/t dec activity tolerance. [place], [place]. Prior Treatments and Tests PT-neck pain in the beginning then more recently back pain - only 2 sessions for back Treatment Goals Patient/Caregiver Goals Be able to put on socks/shoes easier PT-OP-C Subjective Start: 08/07/20 09:45 Freq: Status: Active Protocol: Document 08/21/20 10:02 [facility] (Rec: 08/21/20 12:07 [facility] [id number]) Patient Questionnaires Oswestry Low Back Index Oswestry Score 28/50 OP-PT Pain Assessment Location low back Pain Location Details lower thoracic to lumbar Intensity 7 Scale Used worst 9/10 Description Sharp Frequency Constant Radiating Location feet and hands tingle Variations/Patterns lat thighs occ Pain Aggravating Factors ADL's,Activity,Standing, Sitting,Walking,Bending, Lifting Other Pain Aggravating Factors twisting (like pressure washing), Pain Alleviating Factors Heat PT-OP-F Manual Assessment Start: 08/07/20 09:45 Freq: Status: Active Protocol: Document 08/21/20 10:02 [facility] (Rec: 08/21/20 12:07 [facility] [id number]) Manual Assessments Soft Tissue Assessment Soft Tissue Mobility Assessment tight B QL & ES Joint Mobility Assessment Joint Mobility Assessment L iliac crest higher PT-OP-G Mobility & Gait Start: 08/07/20 09:45 Freq: Status: Active Protocol: Document 08/21/20 10:02 [facility] (Rec: 08/21/20 12:07 [facility] [id number]) OP Mobility Evaluation Bed Mobility Rolling scooches to roll-notes some abdomenal pain OP Gait Assessment Comments Gait Comments fwd leaned and lat shifts, dec push off PT-OP-J Posture/Palpation/Skin Start: 08/07/20 09:45 Freq: Status: Active Protocol: Document 08/21/20 10:02 [facility] (Rec: 08/21/20 12:07 [facility] [id number]) Posture Evaluation Bronson Postural Classification System Vertebral Compression Test 0 Lumbar Protective Mechanism Left AP 0 Lumbar Protective Mechanism Right AP 0 Lumbar Protective Mechanism Left PA 0 Lumbar Protective Mechanism Right PA 0 Comments Posture Comments inc kyphosis & fwd head/neck PT-OP-K Range of Motion Start: 08/07/20 09:45 Freq: Status: Active Protocol: Document 08/21/20 10:02 [facility] (Rec: 08/21/20 12:07 [facility] [id number]) Lumbar Spine Range of Motion Lumbar Spine Active Degrees Flexion 21 Extension 3 Rotation Left 28 Rotation Right 21 Lateral Flexion Left 10 Lateral Flexion Right 12 ROM Limitations Pain PT-OP-L Special Tests Start: 08/07/20 09:45 Freq: Status: Active Protocol: Document 08/21/20 10:02 [facility] (Rec: 08/21/20 12:07 [facility] [id number]) Special Tests Lumbar Spine Special Tests Slump Test Results positive B PT-OP-M Strength Start: 08/07/20 09:45 Freq: Status: Active Protocol: Document 08/21/20 10:02 [facility] (Rec: 08/21/20 12:07 [facility] [id number]) Hip Strength Hip Manual Muscle Testing Right Flexion (L2) 3 Fair Extension (S1) 2 Poor Abduction 3 Fair Internal Rotation 3 Fair Left Flexion (L2) 3 Fair Extension (S1) 2 Poor Abduction 3 Fair External Rotation 3 Fair Internal Rotation 3 Fair Knee Strength Knee Manual Muscle Testing Right Flexion (S2) 3+ Fair+ Extension (L3) 3+ Fair+ Left Flexion (S2) 3+ Fair+ Extension (L3) 3+ Fair+ Ankle/Foot Strength Ankle and Foot Manual Muscle Testing Right Dorsiflexion (L4) 4 Good Plantarflexion (S1) 4 Good Left Dorsiflexion (L4) 4- Good- Plantarflexion (S1) 4- Good- PT-OP-T Assessment and Plan Start: 08/07/20 09:45 Freq: Status: Active Protocol: Document 08/21/20 10:02 [facility] (Rec: 08/21/20 12:07 [facility] [id number]) Physical Therapy Assessment Rehab Potential Rehabilitation Potential Good Evaluation Complexity Number of Personal Factors/Comorbidities 3 or More Number of Body Systems Impaired 4 or More Clinical Presentation at Evaluation Evolving Impairments Impairments Activity Tolerance,Balance, Functional Activities, Functional Mobility,Gait,Pain, Posture,ROM,Soft Tissue Mobility,Strength Goals posture Short Term Goal (STG) Pt will show improvement in postural alignment by inc of VCT to 3/5. STG Duration 09/22/20 Egg Sorter Goal (LTG) Pt will show imrpoved postural alignment and staiblity in order to show improved ability to lift without inc pain by improvement of EFT to at least 3/5. strength Short Term Goal (STG) Pt will be indep w/HEP STG Duration 09/21/20 Egg Sorter Goal (LTG) Pt will improve LE strength to at least 4+/5 in all planes and LPM to at least 3/5 to show improved stability in order to inc pt's ability to participate in ADLs. LTG Duration 10/21/20 activities Short Term Goal (STG) Pt will have improved range of motion of hip and lumbar spine in order to allow ease w /donning/doffing socks. STG Duration 09/21/20 Egg Sorter Goal (LTG) Pt will return to being able to do at least 30 min of activity (biking or walking) without increased pain. LTG Duration 10/21/20 MANUEL Impairment 28/50 Short Term Goal (STG) Pt will improve MANUEL score to no more than 21/50 to show improved function. STG Duration 09/21/20 Snf Goal (LTG) Pt will improve MANUEL score to no more than 10/50 to show improved function. LTG Duration 10/21/20 Assessment Summary Assessment Pt presents with chronic back pain that started 3 years ago when he fell of the back of a truck when he was working at a [employer]. He also had neck and UE pain since then, which has been treated w/prior PT at another clinic w/some improvement as pt notes pain comes and goes. Pt has noted depression and stressful struggles w/L&I since this injury as he had difficulty getting full coverage and has had a significant dec in activity level d/t pain since the initial injury. He has impaired posture and gait with lack of automatic core engagement or response w/ testing and dec hip strength, which likely contributes to his impaired motor planning and increased pain. He would benefit from skilled PT to work on inc activity tolerance , improvement in movemetn mechanics, posture and gait and increasing strength and balance. Physical Therapy Plan Frequency and Duration Frequency of Treatment 2x/Week Duration of Treatment 2 months Plan of Care Start Date 08/21/20 Plan of Care End Date 10/21/20 Therapeutic Interventions Therapeutic Interventions Aquatic Therapy,Balance Training,Gait Training,Home Exercise Program,Manual Therapy,Neuromuscular Re- education,Patient/Caregiver Education,Self-Care/Home Management,Soft Tissue Mobilization,Taping, Therapeutic Activities, Therapeutic Exercises Modalities Cold Pack/Ice Massage,Hot Packs Next Visit Focus/Plan Next Note Type Treatment Note Next Visit Plan start on bike/stepper, supine core progression, hip and back stretches, wall posture, hip strengthening, manual therapy
--- NOTE | 2020-08-21 17:20 | PT.OPPOC ---
Physical, Occupational & Speech Therapy At [facility] Current Diagnoses Low back pain (08/21/20) Difficulty in walking, not elsewhere classified (08/21/20) Abnormal posture (08/21/20) Weakness (08/21/20) Visit Care Team Role Provider Type Avila Oliveira MD Attending Provider Physician Primary Care Provider Referring Provider Specialty: Internal Medicine Address: [address] [place] [address], [facility] Email: [email or web address] Plan Of Care PT-OP-T Assessment and Plan Start: 08/07/20 09:45 Freq: Status: Active Protocol: Document 08/21/20 10:02 [facility] (Rec: 08/21/20 12:07 [facility] [id number]) Physical Therapy Assessment Rehab Potential Rehabilitation Potential Good Evaluation Complexity Number of Personal Factors/Comorbidities 3 or More Number of Body Systems Impaired 4 or More Clinical Presentation at Evaluation Evolving Impairments Impairments Activity Tolerance,Balance, Functional Activities, Functional Mobility,Gait,Pain, Posture,ROM,Soft Tissue Mobility,Strength Goals posture Short Term Goal (STG) Pt will show improvement in postural alignment by inc of VCT to 3/5. STG Duration 09/22/20 Fdc Goal (LTG) Pt will show imrpoved postural alignment and staiblity in order to show improved ability to lift without inc pain by improvement of EFT to at least 3/5. strength Short Term Goal (STG) Pt will be indep w/HEP STG Duration 09/21/20 Research Software Engineer Goal (LTG) Pt will improve LE strength to at least 4+/5 in all planes and LPM to at least 3/5 to show improved stability in order to inc pt's ability to participate in ADLs. LTG Duration 10/21/20 activities Short Term Goal (STG) Pt will have improved range of motion of hip and lumbar spine in order to allow ease w /donning/doffing socks. STG Duration 09/21/20 Fdc Goal (LTG) Pt will return to being able to do at least 30 min of activity (biking or walking) without increased pain. LTG Duration 10/21/20 MANUEL Impairment 28/50 Short Term Goal (STG) Pt will improve MANUEL score to no more than 21/50 to show improved function. STG Duration 09/21/20 Research Software Engineer Goal (LTG) Pt will improve MANUEL score to no more than 10/50 to show improved function. LTG Duration 10/21/20 Assessment Summary Assessment Pt presents with chronic back pain that started 3 years ago when he fell of the back of a truck when he was working at a [employer]. He also had neck and UE pain since then, which has been treated w/prior PT at another clinic w/some improvement as pt notes pain comes and goes. Pt has noted depression and stressful struggles w/L&I since this injury as he had difficulty getting full coverage and has had a significant dec in activity level d/t pain since the initial injury. He has impaired posture and gait with lack of automatic core engagement or response w/ testing and dec hip strength, which likely contributes to his impaired motor planning and increased pain. He would benefit from skilled PT to work on inc activity tolerance , improvement in movemetn mechanics, posture and gait and increasing strength and balance. Physical Therapy Plan Frequency and Duration Frequency of Treatment 2x/Week Duration of Treatment 2 months Plan of Care Start Date 08/21/20 Plan of Care End Date 10/21/20 Therapeutic Interventions Therapeutic Interventions Aquatic Therapy,Balance Training,Gait Training,Home Exercise Program,Manual Therapy,Neuromuscular Re- education,Patient/Caregiver Education,Self-Care/Home Management,Soft Tissue Mobilization,Taping, Therapeutic Activities, Therapeutic Exercises Modalities Cold Pack/Ice Massage,Hot Packs Next Visit Focus/Plan Next Note Type Treatment Note Next Visit Plan start on bike/stepper, supine core progression, hip and back stretches, wall posture, hip strengthening, manual therapy Plan of Care Dates Plan of Care Start Date 08/21/20 Plan of Care End Date 10/21/20 Electronically Signed by: Jazz Powell, PT 08/22/20 1020 Please Sign and Return: I have reviewed this Plan of Care and certify that the skilled therapy services above are required to meet the patient?s needs. Physician Signature Date Printed Name and Credentials Clinical Instructor Signature Printed Name and Credentials
--- NOTE | 2020-08-23 12:02 | PT.OTN ---
Current Diagnoses Low back pain (08/23/20) Difficulty in walking, not elsewhere classified (08/23/20) Abnormal posture (08/23/20) Weakness (08/23/20) Physical Therapy Treatment Note PT-OP-A Visit Information Start: 08/07/20 09:45 Freq: Status: Active Protocol: Document 08/23/20 10:22 [facility] (Rec: 08/23/20 12:01 [facility] [id number]) Out-Patient Physical Therapy Visit Information Visit Information Visit Type Treatment Note Visit Note 05/30 Visit Start Time 11:16 Visit Stop Time 12:14 Total Visit Minutes 58 Visit Number 2 Number of FORESTRY AID Visits 0 PT-OP-B Current Condition Start: 08/07/20 09:45 Freq: Status: Active Protocol: Document 08/21/20 10:02 [facility] (Rec: 08/21/20 12:07 [facility] [id number]) Current Condition History of Current Condition Onset Date May 30, 2017 Current Complaints LBP History of Current Condition Pt reports 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 On admitted to ICU for anxiety, depression and overflow of fluids and CARDONA on Apr 14, 2019 and spent 5 days there then did rehab at [facility] for 18 days. He has been seeing mult MDs since then (exercise instructor, Dr. Terrell- can reforming machine operator, now Dr. Oliveira, then Dr. Aguirre-Oncologolist, and another Oncologist in [facility]). He was told he messed up his bladder and kidneys. On August he was referred to [facility] until a month ago, he transferred care here for PT. He is going to see Pain management MD on September 24. He saw an Ortho surgeon and did a MRI of back which saw compressed disc. L&I wants him to go to [facility] to see MD. Pt notes he is having to work with attornies d/t his prior employer denying him working there. Employer now is finally saying he did work there. Pt is supposed to see ortho in [facility] September 23 but they have cancelled this last min 8 times already. Pt reports post neck pain comes and goes and has pain into shoulders and B upper arms. he notes he has trouble in his back even bending over to get to get to socks/shoes. Pt reprots getting exhausted a lot. Back can get so painful with lifting that he can barely move after. Pt reprots MDs are unsure if he has prostate cancer but are treating him w/ meds. He is on a lot of meds for his heart. Pt reprots he is taking an injection. 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 He has been very depressed since this injury d/t dec activity tolerance. [place], [place]. Prior Treatments and Tests PT-neck pain in the beginning then more recently back pain - only 2 sessions for back Treatment Goals Patient/Caregiver Goals Be able to put on socks/shoes easier PT-OP-C Subjective Start: 08/07/20 09:45 Freq: Status: Active Protocol: Document 08/23/20 10:22 [facility] (Rec: 08/23/20 12:01 [facility] [id number]) OP-PT Subjective Patient Comments Patient Comments Pt reports back is feeling a little sore. He does his exercises for neck and shoulder area PT-OP-F Manual Assessment Start: 08/07/20 09:45 Freq: Status: Active Protocol: Document 08/21/20 10:02 [facility] (Rec: 08/21/20 12:07 [facility] [id number]) Manual Assessments Soft Tissue Assessment Soft Tissue Mobility Assessment tight B QL & ES Joint Mobility Assessment Joint Mobility Assessment L iliac crest higher PT-OP-G Mobility & Gait Start: 08/07/20 09:45 Freq: Status: Active Protocol: Document 08/21/20 10:02 [facility] (Rec: 08/21/20 12:07 [facility] [id number]) OP Mobility Evaluation Bed Mobility Rolling scooches to roll-notes some abdomenal pain OP Gait Assessment Comments Gait Comments fwd leaned and lat shifts, dec push off PT-OP-J Posture/Palpation/Skin Start: 08/07/20 09:45 Freq: Status: Active Protocol: Document 08/21/20 10:02 [facility] (Rec: 08/21/20 12:07 [facility] [id number]) Posture Evaluation Bronson Postural Classification System Vertebral Compression Test 0 Lumbar Protective Mechanism Left AP 0 Lumbar Protective Mechanism Right AP 0 Lumbar Protective Mechanism Left PA 0 Lumbar Protective Mechanism Right PA 0 Comments Posture Comments inc kyphosis & fwd head/neck PT-OP-K Range of Motion Start: 08/07/20 09:45 Freq: Status: Active Protocol: Document 08/21/20 10:02 [facility] (Rec: 08/21/20 12:07 [facility] [id number]) Lumbar Spine Range of Motion Lumbar Spine Active Degrees Flexion 21 Extension 3 Rotation Left 28 Rotation Right 21 Lateral Flexion Left 10 Lateral Flexion Right 12 ROM Limitations Pain PT-OP-L Special Tests Start: 08/07/20 09:45 Freq: Status: Active Protocol: Document 08/21/20 10:02 [facility] (Rec: 08/21/20 12:07 [facility] [id number]) Special Tests Lumbar Spine Special Tests Slump Test Results positive B PT-OP-M Strength Start: 08/07/20 09:45 Freq: Status: Active Protocol: Document 08/21/20 10:02 [facility] (Rec: 08/21/20 12:07 [facility] [id number]) Hip Strength Hip Manual Muscle Testing Right Flexion (L2) 3 Fair Extension (S1) 2 Poor Abduction 3 Fair Internal Rotation 3 Fair Left Flexion (L2) 3 Fair Extension (S1) 2 Poor Abduction 3 Fair External Rotation 3 Fair Internal Rotation 3 Fair Knee Strength Knee Manual Muscle Testing Right Flexion (S2) 3+ Fair+ Extension (L3) 3+ Fair+ Left Flexion (S2) 3+ Fair+ Extension (L3) 3+ Fair+ Ankle/Foot Strength Ankle and Foot Manual Muscle Testing Right Dorsiflexion (L4) 4 Good Plantarflexion (S1) 4 Good Left Dorsiflexion (L4) 4- Good- Plantarflexion (S1) 4- Good- PT-OP-Q Treatments Start: 08/07/20 09:45 Freq: Status: Active Protocol: Document 08/23/20 10:22 [facility] (Rec: 08/23/20 12:01 [facility] [id number]) Cardio Equipment Recumbent Bicycle Duration (Minutes) 6 Resistance 6 Seat Position 6 Therapeutic Exercises Supine Exercises flex Supine Exercise Name single leg flex isometric Side bilateral Reps/Minutes 15 sec x2 pelvic tilt Reps/Minutes 10 bridge Side bilateral Reps/Minutes 5 sec x10 Sidelying Exercises hip abd Side bilateral Reps/Minutes 2x10 clamshell Side bilateral Reps/Minutes 2x10 Standing Exercises wall posture Standing Exercise Name w/B shoulder ext Side bilateral Reps/Minutes 1 min Comments focus on lumbar spine against wall Manual Therapy Treatment Soft Tissue Mobilization lumbar Body Location ES, QL, lumbosacral fascia Mobilization Type Myofascial Release,Rolling, Strumming Intensity/Depth Moderate Body Position Sidelying PT-OP-R Modalities Start: 08/07/20 09:45 Freq: Status: Active Protocol: Document 08/23/20 10:22 [facility] (Rec: 08/23/20 12:01 [facility] [id number]) Hot Pack/Cold Pack Treatment Hot Pack Location lumbar Patient Position Hooklying Treatment Duration (minutes) 15 PT-OP-T Assessment and Plan Start: 08/07/20 09:45 Freq: Status: Active Protocol: Document 08/23/20 10:22 [facility] (Rec: 08/23/20 12:01 [facility] [id number]) Physical Therapy Assessment Goals posture Short Term Goal (STG) Pt will show improvement in postural alignment by inc of VCT to 3/5. STG Duration 09/22/20 [facility] Goal (LTG) Pt will show imrpoved postural alignment and staiblity in order to show improved ability to lift without inc pain by improvement of EFT to at least 3/5. strength Short Term Goal (STG) Pt will be indep w/HEP STG Duration 09/21/20 Biochemistry Specialist Goal (LTG) Pt will improve LE strength to at least 4+/5 in all planes and LPM to at least 3/5 to show improved stability in order to inc pt's ability to participate in ADLs. LTG Duration 10/21/20 activities Short Term Goal (STG) Pt will have improved range of motion of hip and lumbar spine in order to allow ease w /donning/doffing socks. STG Duration 09/21/20 [facility] Goal (LTG) Pt will return to being able to do at least 30 min of activity (biking or walking) without increased pain. LTG Duration 10/21/20 MANUEL Impairment 28/50 Short Term Goal (STG) Pt will improve MANUEL score to no more than 21/50 to show improved function. STG Duration 09/21/20 Biochemistry Specialist Goal (LTG) Pt will improve MANUEL score to no more than 10/50 to show improved function. LTG Duration 10/21/20 Assessment Summary Assessment Pt required significant cuieng w/all exercises to maintain form during the exercises especially s/l exercises. Max cueing for breathing during exercises was required also. He has difficulty with core exercises supine w/engaging abdomenal mm and does require signfiicant cuieng. Significant restriciton on pelvis into elevation & depression noted today that improves some w/STM. Physical Therapy Plan Frequency and Duration Frequency of Treatment 2x/Week Duration of Treatment 2 months Plan of Care Start Date 08/21/20 Plan of Care End Date 10/21/20 Next Visit Focus/Plan Next Note Type Treatment Note Next Visit Plan review HEP, cont to wokr on hip and core stability and manual thereapy to dec pain, hip/back stretches to dec pain
--- NOTE | 2020-08-28 12:01 | PT.OTN ---
Current Diagnoses Low back pain (08/28/20) Difficulty in walking, not elsewhere classified (08/28/20) Abnormal posture (08/28/20) Weakness (08/28/20) Physical Therapy Treatment Note PT-OP-A Visit Information Start: 08/07/20 09:45 Freq: Status: Active Protocol: Document 08/28/20 11:23 [facility] (Rec: 08/28/20 12:01 [facility] [id number]) Out-Patient Physical Therapy Visit Information Visit Information Visit Type Treatment Note Visit Note 06/27 Visit Start Time : Visit Stop Time 12:15 Total Visit Minutes 54 Visit Number 3 Number of SKIDDER LEVER OPERATOR Visits 0 PT-OP-B Current Condition Start: 08/07/20 09:45 Freq: Status: Active Protocol: Document 08/21/20 10:02 [facility] (Rec: 08/21/20 12:07 [facility] [id number]) Current Condition History of Current Condition Onset Date May 30, 2017 Current Complaints LBP History of Current Condition 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 On admitted to ICU for anxiety, depression and overflow of fluids and CARDONA on Apr 14, 2019 and spent 5 days there then did rehab at [facility] for 18 days. He has been seeing mult MDs since then (district manager, Dr. Terrell- field technical support consultant, now Dr. Oliveira, then Dr. Aguirre-Oncologolist, and another Oncologist in [facility]). He was told he messed up his bladder and kidneys. On August he was referred to IRG until a month ago, he transferred care here for PT. He is going to see Pain management MD on September 24. He saw an Ortho surgeon and did a MRI of back which saw compressed disc. L&I wants him to go to [facility] to see MD. Pt notes he is having to work with attornies d/t his prior employer denying him working there. Employer now is finally saying he did work there. Pt is supposed to see ortho in [facility] September 23 but they have cancelled this last min 8 times already. Pt reports post neck pain comes and goes and has pain into shoulders and B upper arms. he notes he has trouble in his back even bending over to get to get to socks/shoes. Pt reprots getting exhausted a lot. Back can get so painful with lifting that he can barely move after. Pt reprots MDs are unsure if he has prostate cancer but are treating him w/ meds. He is on a lot of meds for his heart. Pt reprots he is taking an injection. 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 He has been very depressed since this injury d/t dec activity tolerance. [place], and [place]. Prior Treatments and Tests PT-neck pain in the beginning then more recently back pain - only 2 sessions for back Treatment Goals Patient/Caregiver Goals Be able to put on socks/shoes easier PT-OP-C Subjective Start: 08/07/20 09:45 Freq: Status: Active Protocol: Document 08/28/20 11:23 [facility] (Rec: 08/28/20 12:01 [facility] [id number]) OP-PT Subjective Patient Comments Patient Comments Pt reports he is feeling good today. Notes he noticed PT was gentle on him last time but it was quite a workout. PT-OP-F Manual Assessment Start: 08/07/20 09:45 Freq: Status: Active Protocol: Document 08/21/20 10:02 [facility] (Rec: 08/21/20 12:07 [facility] [id number]) Manual Assessments Soft Tissue Assessment Soft Tissue Mobility Assessment tight B QL & ES Joint Mobility Assessment Joint Mobility Assessment L iliac crest higher PT-OP-G Mobility & Gait Start: 08/07/20 09:45 Freq: Status: Active Protocol: Document 08/21/20 10:02 [facility] (Rec: 08/21/20 12:07 [facility] [id number]) OP Mobility Evaluation Bed Mobility Rolling scooches to roll-notes some abdomenal pain OP Gait Assessment Comments Gait Comments fwd leaned and lat shifts, dec push off PT-OP-J Posture/Palpation/Skin Start: 08/07/20 09:45 Freq: Status: Active Protocol: Document 08/21/20 10:02 [facility] (Rec: 08/21/20 12:07 [facility] [id number]) Posture Evaluation Bronson Postural Classification System Vertebral Compression Test 0 Lumbar Protective Mechanism Left AP 0 Lumbar Protective Mechanism Right AP 0 Lumbar Protective Mechanism Left PA 0 Lumbar Protective Mechanism Right PA 0 Comments Posture Comments inc kyphosis & fwd head/neck PT-OP-K Range of Motion Start: 08/07/20 09:45 Freq: Status: Active Protocol: Document 08/21/20 10:02 [facility] (Rec: 08/21/20 12:07 [facility] [id number]) Lumbar Spine Range of Motion Lumbar Spine Active Degrees Flexion 21 Extension 3 Rotation Left 28 Rotation Right 21 Lateral Flexion Left 10 Lateral Flexion Right 12 ROM Limitations Pain PT-OP-L Special Tests Start: 08/07/20 09:45 Freq: Status: Active Protocol: Document 08/21/20 10:02 [facility] (Rec: 08/21/20 12:07 [facility] [id number]) Special Tests Lumbar Spine Special Tests Slump Test Results positive B PT-OP-M Strength Start: 08/07/20 09:45 Freq: Status: Active Protocol: Document 08/21/20 10:02 [facility] (Rec: 08/21/20 12:07 [facility] [id number]) Hip Strength Hip Manual Muscle Testing Right Flexion (L2) 3 Fair Extension (S1) 2 Poor Abduction 3 Fair Internal Rotation 3 Fair Left Flexion (L2) 3 Fair Extension (S1) 2 Poor Abduction 3 Fair External Rotation 3 Fair Internal Rotation 3 Fair Knee Strength Knee Manual Muscle Testing Right Flexion (S2) 3+ Fair+ Extension (L3) 3+ Fair+ Left Flexion (S2) 3+ Fair+ Extension (L3) 3+ Fair+ Ankle/Foot Strength Ankle and Foot Manual Muscle Testing Right Dorsiflexion (L4) 4 Good Plantarflexion (S1) 4 Good Left Dorsiflexion (L4) 4- Good- Plantarflexion (S1) 4- Good- PT-OP-Q Treatments Start: 08/07/20 09:45 Freq: Status: Active Protocol: Document 08/28/20 11:23 [facility] (Rec: 08/28/20 12:01 [facility] [id number]) Cardio Equipment Recumbent Stepper (Sci-Fit) Duration (Minutes) 6 Resistance 5 Seat Position 10 Therapeutic Exercises Supine Exercises pirformis stretch Side bilateral Reps/Minutes 30 sec HS Supine Exercise Name Active quad engagement for HS stretch Side bilateral Reps/Minutes 15sec x2 flex Supine Exercise Name single leg flex isometric Side bilateral Reps/Minutes 15 sec pelvic tilt Reps/Minutes 10 bridge Side bilateral Reps/Minutes 5 sec x10 Sidelying Exercises hip abd Side bilateral Reps/Minutes 10 clamshell Side bilateral Reps/Minutes 10 Standing Exercises hip abd Side bilateral Equipment Used yellow tband Reps/Minutes 2x10 hip ext Side bilateral Equipment Used yellow tband Reps/Minutes 2x10 resisted walk Standing Exercise Name fwd/back Side bilateral Equipment Used yellow tband Reps/Minutes 2x20ft side step Side bilateral Equipment Used yellow tband Reps/Minutes 2x20ft wall posture Standing Exercise Name w/B shoulder ext Side bilateral Reps/Minutes 1 min Comments focus on lumbar spine against wall Manual Therapy Treatment Soft Tissue Mobilization lumbar Body Location ES, QL, lumbosacral fascia Mobilization Type Myofascial Release,Rolling, Strumming Intensity/Depth Moderate Body Position Sidelying PT-OP-R Modalities Start: 08/07/20 09:45 Freq: Status: Active Protocol: Document 08/28/20 11:23 [facility] (Rec: 08/28/20 12:01 [facility] [id number]) Hot Pack/Cold Pack Treatment Hot Pack Location lumbar Patient Position Hooklying Treatment Duration (minutes) 15 PT-OP-T Assessment and Plan Start: 08/07/20 09:45 Freq: Status: Active Protocol: Document 08/28/20 11:23 [facility] (Rec: 08/28/20 12:01 [facility] [id number]) Physical Therapy Assessment Goals posture Short Term Goal (STG) Pt will show improvement in postural alignment by inc of VCT to 3/5. STG Duration 09/22/20 In Flight Refueling System Repairer Goal (LTG) Pt will show imrpoved postural alignment and staiblity in order to show improved ability to lift without inc pain by improvement of EFT to at least 3/5. strength Short Term Goal (STG) Pt will be indep w/HEP STG Duration 09/21/20 In Flight Refueling System Repairer Goal (LTG) Pt will improve LE strength to at least 4+/5 in all planes and LPM to at least 3/5 to show improved stability in order to inc pt's ability to participate in ADLs. LTG Duration 10/21/20 activities Short Term Goal (STG) Pt will have improved range of motion of hip and lumbar spine in order to allow ease w /donning/doffing socks. STG Duration 09/21/20 In Flight Refueling System Repairer Goal (LTG) Pt will return to being able to do at least 30 min of activity (biking or walking) without increased pain. LTG Duration 10/21/20 MANUEL Impairment 28/50 Short Term Goal (STG) Pt will improve MANUEL score to no more than 21/50 to show improved function. STG Duration 09/21/20 In Flight Refueling System Repairer Goal (LTG) Pt will improve MANUEL score to no more than 10/50 to show improved function. LTG Duration 10/21/20 Assessment Summary Assessment Pt did still require cueing with exercises for good form esepecailly wall posture xercises. Cues needed in standing consistantly for posture and not bending over fwd. Physical Therapy Plan Frequency and Duration Frequency of Treatment 2x/Week Duration of Treatment 2 months Plan of Care Start Date 08/21/20 Plan of Care End Date 10/21/20 Next Visit Focus/Plan Next Note Type Treatment Note Next Visit Plan cont to work on hip and core stability and manual thereapy to dec pain, review hip/back stretches to dec pain
--- NOTE | 2020-08-31 13:19 | PT.OTN ---
Current Diagnoses Low back pain (08/31/20) Difficulty in walking, not elsewhere classified (08/31/20) Abnormal posture (08/31/20) Weakness (08/31/20) Physical Therapy Treatment Note PT-OP-A Visit Information Start: 08/07/20 09:45 Freq: Status: Active Protocol: Document 08/31/20 08:56 MA (Rec: 08/31/20 09:44 MA [id number]) Out-Patient Physical Therapy Visit Information Visit Information Visit Type Treatment Note Visit Note 07/28 Visit Start Time 08:54 Visit Stop Time 09:54 Total Visit Minutes 60 Visit Number 4 Number of CRM MANAGER Visits 1 PT-OP-B Current Condition Start: 08/07/20 09:45 Freq: Status: Active Protocol: Document 08/21/20 10:02 [facility] (Rec: 08/21/20 12:07 [facility] [id number]) Current Condition History of Current Condition Onset Date May 30, 2017 Current Complaints LBP History of Current Condition Pt reports 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 On admitted to ICU for anxiety, depression and overflow of fluids and CARDONA on Apr 14, 2019 and spent 5 days there then did rehab at [facility] for 18 days. He has been seeing mult MDs since then (crm manager, Dr. Terrell- apron worker, now Dr. Oliveira, then Dr. Aguirre-Oncologolist, and another Oncologist in [facility]). He was told he messed up his bladder and kidneys. On August he was referred to IR[facility] until a month ago, he transferred care here for PT. He is going to see Pain management MD on September 24. He saw an Ortho surgeon and did a MRI of back which saw compressed disc. L&I wants him to go to [facility] to see MD. Pt notes he is having to work with attornies d/t his prior employer denying him working there. Employer now is finally saying he did work there. Pt is supposed to see ortho in [facility] September 23 but they have cancelled this last min 8 times already. Pt reports post neck pain comes and goes and has pain into shoulders and B upper arms. he notes he has trouble in his back even bending over to get to get to socks/shoes. Pt reprots getting exhausted a lot. Back can get so painful with lifting that he can barely move after. Pt reprots MDs are unsure if he has prostate cancer but are treating him w/ meds. He is on a lot of meds for his heart. Pt reprots he is taking an injection. 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 He has been very depressed since this injury d/t dec activity tolerance. [place], [place]. Prior Treatments and Tests PT-neck pain in the beginning then more recently back pain - only 2 sessions for back Treatment Goals Patient/Caregiver Goals Be able to put on socks/shoes easier PT-OP-C Subjective Start: 08/07/20 09:45 Freq: Status: Active Protocol: Document 08/31/20 08:56 MA (Rec: 08/31/20 09:44 MA [id number]) OP-PT Subjective Patient Comments Patient Comments Pt states my back is just sore when I wake up in the morning PT-OP-F Manual Assessment Start: 08/07/20 09:45 Freq: Status: Active Protocol: Document 08/21/20 10:02 [facility] (Rec: 08/21/20 12:07 [facility] [id number]) Manual Assessments Soft Tissue Assessment Soft Tissue Mobility Assessment tight B QL & ES Joint Mobility Assessment Joint Mobility Assessment L iliac crest higher PT-OP-G Mobility & Gait Start: 08/07/20 09:45 Freq: Status: Active Protocol: Document 08/21/20 10:02 [facility] (Rec: 08/21/20 12:07 [facility] [id number]) OP Mobility Evaluation Bed Mobility Rolling scooches to roll-notes some abdomenal pain OP Gait Assessment Comments Gait Comments fwd leaned and lat shifts, dec push off PT-OP-J Posture/Palpation/Skin Start: 08/07/20 09:45 Freq: Status: Active Protocol: Document 08/21/20 10:02 [facility] (Rec: 08/21/20 12:07 [facility] [id number]) Posture Evaluation Bronson Postural Classification System Vertebral Compression Test 0 Lumbar Protective Mechanism Left AP 0 Lumbar Protective Mechanism Right AP 0 Lumbar Protective Mechanism Left PA 0 Lumbar Protective Mechanism Right PA 0 Comments Posture Comments inc kyphosis & fwd head/neck PT-OP-K Range of Motion Start: 08/07/20 09:45 Freq: Status: Active Protocol: Document 08/21/20 10:02 [facility] (Rec: 08/21/20 12:07 [facility] [id number]) Lumbar Spine Range of Motion Lumbar Spine Active Degrees Flexion 21 Extension 3 Rotation Left 28 Rotation Right 21 Lateral Flexion Left 10 Lateral Flexion Right 12 ROM Limitations Pain PT-OP-L Special Tests Start: 08/07/20 09:45 Freq: Status: Active Protocol: Document 08/21/20 10:02 [facility] (Rec: 08/21/20 12:07 [facility] [id number]) Special Tests Lumbar Spine Special Tests Slump Test Results positive B PT-OP-M Strength Start: 08/07/20 09:45 Freq: Status: Active Protocol: Document 08/21/20 10:02 [facility] (Rec: 08/21/20 12:07 [facility] [id number]) Hip Strength Hip Manual Muscle Testing Right Flexion (L2) 3 Fair Extension (S1) 2 Poor Abduction 3 Fair Internal Rotation 3 Fair Left Flexion (L2) 3 Fair Extension (S1) 2 Poor Abduction 3 Fair External Rotation 3 Fair Internal Rotation 3 Fair Knee Strength Knee Manual Muscle Testing Right Flexion (S2) 3+ Fair+ Extension (L3) 3+ Fair+ Left Flexion (S2) 3+ Fair+ Extension (L3) 3+ Fair+ Ankle/Foot Strength Ankle and Foot Manual Muscle Testing Right Dorsiflexion (L4) 4 Good Plantarflexion (S1) 4 Good Left Dorsiflexion (L4) 4- Good- Plantarflexion (S1) 4- Good- PT-OP-Q Treatments Start: 08/07/20 09:45 Freq: Status: Active Protocol: Document 08/31/20 08:56 MA (Rec: 08/31/20 09:44 MA [id number]) Therapeutic Exercises Supine Exercises pirformis stretch Side bilateral Reps/Minutes 30 sec HS Supine Exercise Name Active quad engagement for HS stretch Side bilateral Reps/Minutes 15sec x2 flex Supine Exercise Name single leg flex isometric Side bilateral Reps/Minutes 15 sec pelvic tilt Reps/Minutes 10 bridge Side bilateral Reps/Minutes 5 sec x10 Sidelying Exercises hip abd Side bilateral Reps/Minutes 10 clamshell Side bilateral Reps/Minutes 10 Standing Exercises hip abd Side bilateral Equipment Used yellow tband Reps/Minutes 2x10 hip ext Side bilateral Equipment Used yellow tband Reps/Minutes 2x10 resisted walk Standing Exercise Name fwd/back Side bilateral Equipment Used yellow tband Reps/Minutes 2x20ft side step Side bilateral Equipment Used yellow tband Reps/Minutes 2x20ft Manual Therapy Treatment Soft Tissue Mobilization lumbar Body Location ES, QL, lumbosacral fascia Mobilization Type Myofascial Release,Rolling, Strumming Intensity/Depth Moderate Body Position Prone PT-OP-R Modalities Start: 08/07/20 09:45 Freq: Status: Active Protocol: Document 08/31/20 08:56 MA (Rec: 08/31/20 09:44 MA [id number]) Hot Pack/Cold Pack Treatment Hot Pack Location lumbar Patient Position Hooklying Treatment Duration (minutes) 15 PT-OP-T Assessment and Plan Start: 08/07/20 09:45 Freq: Status: Active Protocol: Document 08/31/20 08:56 MA (Rec: 08/31/20 09:44 MA [id number]) Physical Therapy Assessment Goals posture Short Term Goal (STG) Pt will show improvement in postural alignment by inc of VCT to 3/5. STG Duration 09/22/20 Detail Assembler Goal (LTG) Pt will show imrpoved postural alignment and staiblity in order to show improved ability to lift without inc pain by improvement of EFT to at least 3/5. strength Short Term Goal (STG) Pt will be indep w/HEP STG Duration 09/21/20 Detail Assembler Goal (LTG) Pt will improve LE strength to at least 4+/5 in all planes and LPM to at least 3/5 to show improved stability in order to inc pt's ability to participate in ADLs. LTG Duration 10/21/20 activities Short Term Goal (STG) Pt will have improved range of motion of hip and lumbar spine in order to allow ease w /donning/doffing socks. STG Duration 09/21/20 Detail Assembler Goal (LTG) Pt will return to being able to do at least 30 min of activity (biking or walking) without increased pain. LTG Duration 10/21/20 MANUEL Impairment 28/50 Short Term Goal (STG) Pt will improve MANUEL score to no more than 21/50 to show improved function. STG Duration 09/21/20 Residential Goal (LTG) Pt will improve MANUEL score to no more than 10/50 to show improved function. LTG Duration 10/21/20 Assessment Summary Assessment Pt requires frequent cues during SL exercises to avoid rolling hips posteriorly. He needs minor cues for core activation when performing supine exercises. During standing band work pt requires cues to avoid side bending during abd and forward flexing during hip ext. Pt would continue to benefit from therapy for increasing strength and decreasing LBP Physical Therapy Plan Frequency and Duration Frequency of Treatment 2x/Week Duration of Treatment 2 months Plan of Care Start Date 08/21/20 Plan of Care End Date 10/21/20 Therapeutic Interventions Therapeutic Interventions Aquatic Therapy,Balance Training,Gait Training,Home Exercise Program,Manual Therapy,Neuromuscular Re- education,Patient/Caregiver Education,Self-Care/Home Management,Soft Tissue Mobilization,Taping, Therapeutic Activities, Therapeutic Exercises Modalities Cold Pack/Ice Massage,Hot Packs Next Visit Focus/Plan Next Note Type Treatment Note Next Visit Plan Cont to work on hip and core stability and manual thereapy to dec pain, review hip/back stretches to dec pain
--- NOTE | 2020-09-03 10:15 | PT.OTN ---
Current Diagnoses Low back pain (09/03/20) Difficulty in walking, not elsewhere classified (09/03/20) Abnormal posture (09/03/20) Weakness (09/03/20) Physical Therapy Treatment Note PT-OP-A Visit Information Start: 08/07/20 09:45 Freq: Status: Active Protocol: Document 09/03/20 09:35 MA (Rec: 09/03/20 10:15 MA [id number]) Out-Patient Physical Therapy Visit Information Visit Information Visit Type Treatment Note Visit Note 08/27 Visit Start Time 09:30 Visit Stop Time 10:25 Total Visit Minutes 55 Visit Number 5 Number of RESEARCH DAIRY FARM SUPERVISOR Visits 2 PT-OP-B Current Condition Start: 08/07/20 09:45 Freq: Status: Active Protocol: Document 08/21/20 10:02 [facility] (Rec: 08/21/20 12:07 [facility] [id number]) Current Condition History of Current Condition Onset Date May 30, 2017 Current Complaints LBP History of Current Condition 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 On admitted to ICU for anxiety, depression and overflow of fluids and CARDONA on Apr 14, 2019 and spent 5 days there then did rehab at [facility] for 18 days. He has been seeing mult MDs since then (lime kiln worker, Dr. Terrell- computer network engineer, now Dr. Oliveira, then Dr. Agiurre-Oncologolist, and another Oncologist in [facility]). He was told he messed up his bladder and kidneys. On August he was referred to IRG until a month ago, he transferred care here for PT. He is going to see Pain management MD on September 24. He saw an Ortho surgeon and did a MRI of back which saw compressed disc. L&I wants him to go to [facility] to see MD. Pt notes he is having to work with attornies d/t his prior employer denying him working there. Employer now is finally saying he did work there. Pt is supposed to see ortho in [facility] September 23 but they have cancelled this last min 8 times already. Pt reports post neck pain comes and goes and has pain into shoulders and B upper arms. he notes he has trouble in his back even bending over to get to get to socks/shoes. Pt reprots getting exhausted a lot. Back can get so painful with lifting that he can barely move after. Pt reprots MDs are unsure if he has prostate cancer but are treating him w/ meds. He is on a lot of meds for his heart. Pt reprots he is taking an injection. 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 He has been very depressed since this injury d/t dec activity tolerance. [place], [place]. Prior Treatments and Tests PT-neck pain in the beginning then more recently back pain - only 2 sessions for back Treatment Goals Patient/Caregiver Goals Be able to put on socks/shoes easier PT-OP-C Subjective Start: 08/07/20 09:45 Freq: Status: Active Protocol: Document 09/03/20 09:35 MA (Rec: 09/03/20 10:15 MA [id number]) OP-PT Subjective Patient Comments Patient Comments It's early so my back is a little sore. Pt reports he is doing the cascade loop next week for 2 days PT-OP-F Manual Assessment Start: 08/07/20 09:45 Freq: Status: Active Protocol: Document 08/21/20 10:02 [facility] (Rec: 08/21/20 12:07 [facility] [id number]) Manual Assessments Soft Tissue Assessment Soft Tissue Mobility Assessment tight B QL & ES Joint Mobility Assessment Joint Mobility Assessment L iliac crest higher PT-OP-G Mobility & Gait Start: 08/07/20 09:45 Freq: Status: Active Protocol: Document 08/21/20 10:02 [facility] (Rec: 08/21/20 12:07 [facility] [id number]) OP Mobility Evaluation Bed Mobility Rolling scooches to roll-notes some abdomenal pain OP Gait Assessment Comments Gait Comments fwd leaned and lat shifts, dec push off PT-OP-J Posture/Palpation/Skin Start: 08/07/20 09:45 Freq: Status: Active Protocol: Document 08/21/20 10:02 [facility] (Rec: 08/21/20 12:07 [facility] [id number]) Posture Evaluation Bronson Postural Classification System Vertebral Compression Test 0 Lumbar Protective Mechanism Left AP 0 Lumbar Protective Mechanism Right AP 0 Lumbar Protective Mechanism Left PA 0 Lumbar Protective Mechanism Right PA 0 Comments Posture Comments inc kyphosis & fwd head/neck PT-OP-K Range of Motion Start: 08/07/20 09:45 Freq: Status: Active Protocol: Document 08/21/20 10:02 [facility] (Rec: 08/21/20 12:07 [facility] [id number]) Lumbar Spine Range of Motion Lumbar Spine Active Degrees Flexion 21 Extension 3 Rotation Left 28 Rotation Right 21 Lateral Flexion Left 10 Lateral Flexion Right 12 ROM Limitations Pain PT-OP-L Special Tests Start: 08/07/20 09:45 Freq: Status: Active Protocol: Document 08/21/20 10:02 [facility] (Rec: 08/21/20 12:07 [facility] [id number]) Special Tests Lumbar Spine Special Tests Slump Test Results positive B PT-OP-M Strength Start: 08/07/20 09:45 Freq: Status: Active Protocol: Document 08/21/20 10:02 [facility] (Rec: 08/21/20 12:07 [facility] [id number]) Hip Strength Hip Manual Muscle Testing Right Flexion (L2) 3 Fair Extension (S1) 2 Poor Abduction 3 Fair Internal Rotation 3 Fair Left Flexion (L2) 3 Fair Extension (S1) 2 Poor Abduction 3 Fair External Rotation 3 Fair Internal Rotation 3 Fair Knee Strength Knee Manual Muscle Testing Right Flexion (S2) 3+ Fair+ Extension (L3) 3+ Fair+ Left Flexion (S2) 3+ Fair+ Extension (L3) 3+ Fair+ Ankle/Foot Strength Ankle and Foot Manual Muscle Testing Right Dorsiflexion (L4) 4 Good Plantarflexion (S1) 4 Good Left Dorsiflexion (L4) 4- Good- Plantarflexion (S1) 4- Good- PT-OP-Q Treatments Start: 08/07/20 09:45 Freq: Status: Active Protocol: Document 09/03/20 09:35 MA (Rec: 09/03/20 10:15 MA [id number]) Cardio Equipment Recumbent Stepper (Sci-Fit) Duration (Minutes) 7 Resistance 5 Seat Position 10 Therapeutic Exercises Supine Exercises HS Supine Exercise Name Active quad engagement for HS stretch Side bilateral Reps/Minutes 15sec x2 flex Supine Exercise Name single leg flex isometric Side bilateral Reps/Minutes 15 sec pelvic tilt Reps/Minutes 10 bridge Side bilateral Reps/Minutes 5 sec x10 Sidelying Exercises hip abd Side bilateral Reps/Minutes 10 clamshell Side bilateral Reps/Minutes 10 Standing Exercises hip abd Side bilateral Equipment Used yellow tband Reps/Minutes 2x10 hip ext Side bilateral Equipment Used yellow tband Reps/Minutes 2x10 resisted walk Standing Exercise Name fwd/back Side bilateral Equipment Used yellow tband Reps/Minutes 2x20ft side step Side bilateral Equipment Used yellow tband Reps/Minutes 2x20ft wall posture Standing Exercise Name w/B shoulder ext Side bilateral Reps/Minutes 1 min Comments focus on lumbar spine against wall PT-OP-R Modalities Start: 08/07/20 09:45 Freq: Status: Active Protocol: Document 09/03/20 09:35 MA (Rec: 09/03/20 10:15 MA [id number]) Hot Pack/Cold Pack Treatment Hot Pack Location lumbar Patient Position Hooklying Treatment Duration (minutes) 15 PT-OP-T Assessment and Plan Start: 08/07/20 09:45 Freq: Status: Active Protocol: Document 09/03/20 09:35 MA (Rec: 09/03/20 10:15 MA [id number]) Physical Therapy Assessment Goals posture Short Term Goal (STG) Pt will show improvement in postural alignment by inc of VCT to 3/5. STG Duration 09/22/20 Tank Car Inspector Goal (LTG) Pt will show imrpoved postural alignment and staiblity in order to show improved ability to lift without inc pain by improvement of EFT to at least 3/5. strength Short Term Goal (STG) Pt will be indep w/HEP STG Duration 09/21/20 Tank Car Inspector Goal (LTG) Pt will improve LE strength to at least 4+/5 in all planes and LPM to at least 3/5 to show improved stability in order to inc pt's ability to participate in ADLs. LTG Duration 10/21/20 activities Short Term Goal (STG) Pt will have improved range of motion of hip and lumbar spine in order to allow ease w /donning/doffing socks. STG Duration 09/21/20 Snf Goal (LTG) Pt will return to being able to do at least 30 min of activity (biking or walking) without increased pain. LTG Duration 10/21/20 MANUEL Impairment 28/50 Short Term Goal (STG) Pt will improve MANUEL score to no more than 21/50 to show improved function. STG Duration 09/21/20 Snf Goal (LTG) Pt will improve MANUEL score to no more than 10/50 to show improved function. LTG Duration 10/21/20 Assessment Summary Assessment Joel did much better with exercises today and needed fewer cues to keep neutral spine and pelvis during SL exercises and standing band work. He continues to need cues for TrA awareness during core exercises. Physical Therapy Plan Frequency and Duration Frequency of Treatment 2x/Week Duration of Treatment 2 months Plan of Care Start Date 08/21/20 Plan of Care End Date 10/21/20 Therapeutic Interventions Therapeutic Interventions Aquatic Therapy,Balance Training,Gait Training,Home Exercise Program,Manual Therapy,Neuromuscular Re- education,Patient/Caregiver Education,Self-Care/Home Management,Soft Tissue Mobilization,Taping, Therapeutic Activities, Therapeutic Exercises Modalities Cold Pack/Ice Massage,Hot Packs Next Visit Focus/Plan Next Note Type Treatment Note Next Visit Plan Cont to work on hip and core stability and manual thereapy to dec pain, review hip/back stretches to dec pain
--- NOTE | 2020-09-06 09:52 | PT.OTN ---
Current Diagnoses Low back pain (09/06/20) Difficulty in walking, not elsewhere classified (09/06/20) Abnormal posture (09/06/20) Weakness (09/06/20) Physical Therapy Treatment Note PT-OP-A Visit Information Start: 08/07/20 09:45 Freq: Status: Active Protocol: Document 09/06/20 09:06 [facility] (Rec: 09/06/20 09:52 [facility] [id number]) Out-Patient Physical Therapy Visit Information Visit Information Visit Type Treatment Note Visit Note 09/27 Visit Start Time 09:04 Visit Stop Time 09:59 Total Visit Minutes 55 Visit Number 6 Number of UI UX WEB DEVELOPER Visits 0 PT-OP-B Current Condition Start: 08/07/20 09:45 Freq: Status: Active Protocol: Document 08/21/20 10:02 [facility] (Rec: 08/21/20 12:07 [facility] [id number]) Current Condition History of Current Condition Onset Date May 30, 2017 Current Complaints LBP History of Current Condition Pt reports 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 On admitted to ICU for anxiety, depression and overflow of fluids and CARDONA on Apr 14, 2019 and spent 5 days there then did rehab at [facility] for 18 days. He has been seeing mult MDs since then (eradicator, Dr. Terrell- orchid grower, now Dr. Oliveira, then Dr. Aguirre-Oncologolist, and another Oncologist in [facility]). He was told he messed up his bladder and kidneys. On August he was referred to [facility] until a month ago, he transferred care here for PT. He is going to see Pain management MD on September 24. He saw an Ortho surgeon and did a MRI of back which saw compressed disc. L&I wants him to go to [facility] to see MD. Pt notes he is having to work with attornies d/t his prior employer denying him working there. Employer now is finally saying he did work there. Pt is supposed to see ortho in [facility] September 23 but they have cancelled this last min 8 times already. Pt reports post neck pain comes and goes and has pain into shoulders and B upper arms. he notes he has trouble in his back even bending over to get to get to socks/shoes. Pt reprots getting exhausted a lot. Back can get so painful with lifting that he can barely move after. Pt reprots MDs are unsure if he has prostate cancer but are treating him w/ meds. He is on a lot of meds for his heart. Pt reprots he is taking an injection. 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 He has been very depressed since this injury d/t dec activity tolerance. [place], [place]. Prior Treatments and Tests PT-neck pain in the beginning then more recently back pain - only 2 sessions for back Treatment Goals Patient/Caregiver Goals Be able to put on socks/shoes easier PT-OP-C Subjective Start: 08/07/20 09:45 Freq: Status: Active Protocol: Document 09/06/20 09:06 [facility] (Rec: 09/06/20 09:52 [facility] [id number]) OP-PT Subjective Patient Comments Patient Comments Reports he did not do the [place] loop d/t allan of trip . Sore d/t time laying down sleeping. He is sleeping in another room which is more comfortable. PT-OP-F Manual Assessment Start: 08/07/20 09:45 Freq: Status: Active Protocol: Document 08/21/20 10:02 [facility] (Rec: 08/21/20 12:07 [facility] [id number]) Manual Assessments Soft Tissue Assessment Soft Tissue Mobility Assessment tight B QL & ES Joint Mobility Assessment Joint Mobility Assessment L iliac crest higher PT-OP-G Mobility & Gait Start: 08/07/20 09:45 Freq: Status: Active Protocol: Document 08/21/20 10:02 [facility] (Rec: 08/21/20 12:07 [facility] [id number]) OP Mobility Evaluation Bed Mobility Rolling scooches to roll-notes some abdomenal pain OP Gait Assessment Comments Gait Comments fwd leaned and lat shifts, dec push off PT-OP-J Posture/Palpation/Skin Start: 08/07/20 09:45 Freq: Status: Active Protocol: Document 08/21/20 10:02 [facility] (Rec: 08/21/20 12:07 [facility] [id number]) Posture Evaluation [facility] Postural Classification System Vertebral Compression Test 0 Lumbar Protective Mechanism Left AP 0 Lumbar Protective Mechanism Right AP 0 Lumbar Protective Mechanism Left PA 0 Lumbar Protective Mechanism Right PA 0 Comments Posture Comments inc kyphosis & fwd head/neck PT-OP-K Range of Motion Start: 08/07/20 09:45 Freq: Status: Active Protocol: Document 08/21/20 10:02 [facility] (Rec: 08/21/20 12:07 [facility] [id number]) Lumbar Spine Range of Motion Lumbar Spine Active Degrees Flexion 21 Extension 3 Rotation Left 28 Rotation Right 21 Lateral Flexion Left 10 Lateral Flexion Right 12 ROM Limitations Pain PT-OP-L Special Tests Start: 08/07/20 09:45 Freq: Status: Active Protocol: Document 08/21/20 10:02 [facility] (Rec: 08/21/20 12:07 [facility] [id number]) Special Tests Lumbar Spine Special Tests Slump Test Results positive B PT-OP-M Strength Start: 08/07/20 09:45 Freq: Status: Active Protocol: Document 08/21/20 10:02 [facility] (Rec: 08/21/20 12:07 [facility] [id number]) Hip Strength Hip Manual Muscle Testing Right Flexion (L2) 3 Fair Extension (S1) 2 Poor Abduction 3 Fair Internal Rotation 3 Fair Left Flexion (L2) 3 Fair Extension (S1) 2 Poor Abduction 3 Fair External Rotation 3 Fair Internal Rotation 3 Fair Knee Strength Knee Manual Muscle Testing Right Flexion (S2) 3+ Fair+ Extension (L3) 3+ Fair+ Left Flexion (S2) 3+ Fair+ Extension (L3) 3+ Fair+ Ankle/Foot Strength Ankle and Foot Manual Muscle Testing Right Dorsiflexion (L4) 4 Good Plantarflexion (S1) 4 Good Left Dorsiflexion (L4) 4- Good- Plantarflexion (S1) 4- Good- PT-OP-Q Treatments Start: 08/07/20 09:45 Freq: Status: Active Protocol: Document 09/06/20 09:06 [facility] (Rec: 09/06/20 09:52 [facility] [id number]) Cardio Equipment Recumbent Stepper (Sci-Fit) Duration (Minutes) 7 Resistance 5 Seat Position 10 Therapeutic Exercises Supine Exercises bridge Supine Exercise Name arms across chest Side bilateral Reps/Minutes 5 sec x10 Standing Exercises wall squat Standing Exercise Name ball Side bilateral Reps/Minutes 20 hip abd Side bilateral Equipment Used yellow tband Reps/Minutes 2x10 hip ext Side bilateral Equipment Used yellow tband Reps/Minutes 2x10 resisted walk Standing Exercise Name fwd/back Side bilateral Equipment Used yellow tband Reps/Minutes 2x20ft side step Side bilateral Equipment Used yellow tband Reps/Minutes 2x20ft wall posture Standing Exercise Name w/B shoulder ext Side bilateral Reps/Minutes 1 min Comments focus on lumbar spine against wall Other Exercises quadruped Other Exercise Name 1. alt arm lifts 2. alt hip ext Side bilateral Reps/Minutes 10 ea Comments max cueing for back position Manual Therapy Treatment Soft Tissue Mobilization lumbar Body Location ES, QL, lumbosacral fascia Mobilization Type Myofascial Release,Rolling, Strumming Intensity/Depth Moderate Body Position Prone PT-OP-R Modalities Start: 08/07/20 09:45 Freq: Status: Active Protocol: Document 09/06/20 09:06 [facility] (Rec: 09/06/20 09:52 [facility] [id number]) Hot Pack/Cold Pack Treatment Hot Pack Location lumbar Patient Position Hooklying Treatment Duration (minutes) 15 PT-OP-T Assessment and Plan Start: 08/07/20 09:45 Freq: Status: Active Protocol: Document 09/06/20 09:06 [facility] (Rec: 09/06/20 09:52 [facility] [id number]) Physical Therapy Assessment Goals posture Short Term Goal (STG) Pt will show improvement in postural alignment by inc of VCT to 3/5. STG Duration 09/22/20 Financial Administrative Assistant Goal (LTG) Pt will show imrpoved postural alignment and staiblity in order to show improved ability to lift without inc pain by improvement of EFT to at least 3/5. strength Short Term Goal (STG) Pt will be indep w/HEP STG Duration 09/21/20 Detention Goal (LTG) Pt will improve LE strength to at least 4+/5 in all planes and LPM to at least 3/5 to show improved stability in order to inc pt's ability to participate in ADLs. LTG Duration 10/21/20 activities Short Term Goal (STG) Pt will have improved range of motion of hip and lumbar spine in order to allow ease w /donning/doffing socks. STG Duration 09/21/20 Detention Goal (LTG) Pt will return to being able to do at least 30 min of activity (biking or walking) without increased pain. LTG Duration 10/21/20 MANUEL Impairment 28/50 Short Term Goal (STG) Pt will improve MANUEL score to no more than 21/50 to show improved function. STG Duration 09/21/20 Detention Goal (LTG) Pt will improve MANUEL score to no more than 10/50 to show improved function. LTG Duration 10/21/20 Assessment Summary Assessment Pt still requires cuieng with standing exercises for keeping good posture. He had signfiicant difficultly with quadruped so max cueing required. Physical Therapy Plan Frequency and Duration Frequency of Treatment 2x/Week Duration of Treatment 2 months Plan of Care Start Date 08/21/20 Plan of Care End Date 10/21/20 Next Visit Focus/Plan Next Note Type Treatment Note Next Visit Plan Cont to work on hip and core stability and manual thereapy to dec pain, review hip/back stretches to dec pain
--- NOTE | 2020-09-10 11:08 | PT.OTN ---
Current Diagnoses Low back pain (09/10/20) Difficulty in walking, not elsewhere classified (09/10/20) Abnormal posture (09/10/20) Weakness (09/10/20) Physical Therapy Treatment Note PT-OP-A Visit Information Start: 08/07/20 09:45 Freq: Status: Active Protocol: Document 09/10/20 10:24 [facility] (Rec: 09/10/20 10:58 [facility] [id number]) Out-Patient Physical Therapy Visit Information Visit Information Visit Type Treatment Note Visit Note 10/27 Visit Start Time 10:15 Visit Stop Time 10:55 Total Visit Minutes 40 Visit Number 7 Number of LEAD GENERATION SPECIALIST Visits 1 PT-OP-B Current Condition Start: 08/07/20 09:45 Freq: Status: Active Protocol: Document 08/21/20 10:02 [facility] (Rec: 08/21/20 12:07 [facility] [id number]) Current Condition History of Current Condition Onset Date May 30, 2017 Current Complaints LBP History of Current Condition 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 On admitted to ICU for anxiety, depression and overflow of fluids and CARDONA on Apr 14, 2019 and spent 5 days there then did rehab at [facility] for 18 days. He has been seeing mult MDs since then (film and video graphics designer, Dr. Terrell- laserist, now Dr. Oliveira, then Dr. Aguirre-Oncologolist, and another Oncologist in [facility]). He was told he messed up his bladder and kidneys. On August he was referred to IRG until a month ago, he transferred care here for PT. He is going to see Pain management MD on September 24. He saw an Ortho surgeon and did a MRI of back which saw compressed disc. L&I wants him to go to [facility] to see MD. Pt notes he is having to work with attornies d/t his prior employer denying him working there. Employer now is finally saying he did work there. Pt is supposed to see ortho in [facility] September 23 but they have cancelled this last min 8 times already. Pt reports post neck pain comes and goes and has pain into shoulders and B upper arms. he notes he has trouble in his back even bending over to get to get to socks/shoes. Pt reprots getting exhausted a lot. Back can get so painful with lifting that he can barely move after. Pt reprots MDs are unsure if he has prostate cancer but are treating him w/ meds. He is on a lot of meds for his heart. Pt reprots he is taking an injection. 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 He has been very depressed since this injury d/t dec activity tolerance. [place], [place]. Prior Treatments and Tests PT-neck pain in the beginning then more recently back pain - only 2 sessions for back Treatment Goals Patient/Caregiver Goals Be able to put on socks/shoes easier PT-OP-C Subjective Start: 08/07/20 09:45 Freq: Status: Active Protocol: Document 09/10/20 10:24 [facility] (Rec: 09/10/20 10:58 [facility] [id number]) OP-PT Subjective Patient Comments Patient Comments I feel like my posture has improved my breathing PT-OP-F Manual Assessment Start: 08/07/20 09:45 Freq: Status: Active Protocol: Document 08/21/20 10:02 [facility] (Rec: 08/21/20 12:07 [facility] [id number]) Manual Assessments Soft Tissue Assessment Soft Tissue Mobility Assessment tight B QL & ES Joint Mobility Assessment Joint Mobility Assessment L iliac crest higher PT-OP-G Mobility & Gait Start: 08/07/20 09:45 Freq: Status: Active Protocol: Document 08/21/20 10:02 [facility] (Rec: 08/21/20 12:07 [facility] [id number]) OP Mobility Evaluation Bed Mobility Rolling scooches to roll-notes some abdomenal pain OP Gait Assessment Comments Gait Comments fwd leaned and lat shifts, dec push off PT-OP-J Posture/Palpation/Skin Start: 08/07/20 09:45 Freq: Status: Active Protocol: Document 08/21/20 10:02 [facility] (Rec: 08/21/20 12:07 [facility] [id number]) Posture Evaluation [facility] Postural Classification System Vertebral Compression Test 0 Lumbar Protective Mechanism Left AP 0 Lumbar Protective Mechanism Right AP 0 Lumbar Protective Mechanism Left PA 0 Lumbar Protective Mechanism Right PA 0 Comments Posture Comments inc kyphosis & fwd head/neck PT-OP-K Range of Motion Start: 08/07/20 09:45 Freq: Status: Active Protocol: Document 08/21/20 10:02 [facility] (Rec: 08/21/20 12:07 [facility] [id number]) Lumbar Spine Range of Motion Lumbar Spine Active Degrees Flexion 21 Extension 3 Rotation Left 28 Rotation Right 21 Lateral Flexion Left 10 Lateral Flexion Right 12 ROM Limitations Pain PT-OP-L Special Tests Start: 08/07/20 09:45 Freq: Status: Active Protocol: Document 08/21/20 10:02 [facility] (Rec: 08/21/20 12:07 [facility] [id number]) Special Tests Lumbar Spine Special Tests Slump Test Results positive B PT-OP-M Strength Start: 08/07/20 09:45 Freq: Status: Active Protocol: Document 08/21/20 10:02 [facility] (Rec: 08/21/20 12:07 [facility] [id number]) Hip Strength Hip Manual Muscle Testing Right Flexion (L2) 3 Fair Extension (S1) 2 Poor Abduction 3 Fair Internal Rotation 3 Fair Left Flexion (L2) 3 Fair Extension (S1) 2 Poor Abduction 3 Fair External Rotation 3 Fair Internal Rotation 3 Fair Knee Strength Knee Manual Muscle Testing Right Flexion (S2) 3+ Fair+ Extension (L3) 3+ Fair+ Left Flexion (S2) 3+ Fair+ Extension (L3) 3+ Fair+ Ankle/Foot Strength Ankle and Foot Manual Muscle Testing Right Dorsiflexion (L4) 4 Good Plantarflexion (S1) 4 Good Left Dorsiflexion (L4) 4- Good- Plantarflexion (S1) 4- Good- PT-OP-Q Treatments Start: 08/07/20 09:45 Freq: Status: Active Protocol: Document 09/10/20 10:24 [facility] (Rec: 09/10/20 10:58 [facility] [id number]) Cardio Equipment Recumbent Stepper (Sci-Fit) Duration (Minutes) 8 Resistance 5 Seat Position 10 Therapeutic Exercises Standing Exercises wall squat Standing Exercise Name ball Side bilateral Reps/Minutes 2x15 Comments cues to avoid adduction of LEs hip abd Side bilateral Equipment Used yellow tband Reps/Minutes 2x10 hip ext Side bilateral Equipment Used yellow tband Reps/Minutes 2x10 resisted walk Standing Exercise Name fwd/back Side bilateral Equipment Used yellow tband Reps/Minutes 2x20ft side step Side bilateral Equipment Used yellow tband Reps/Minutes 2x20ft wall posture Standing Exercise Name w/B shoulder ext Side bilateral Reps/Minutes 1 min Comments focus on lumbar spine against wall Other Exercises quadruped Other Exercise Name 1. alt arm lifts 2. alt hip ext Side bilateral Reps/Minutes 10 ea Comments max cueing for back position Manual Therapy Treatment Soft Tissue Mobilization lumbar Body Location ES, QL, lumbosacral fascia Mobilization Type Myofascial Release,Rolling, Strumming Intensity/Depth Moderate Body Position Prone PT-OP-R Modalities Start: 08/07/20 09:45 Freq: Status: Active Protocol: Document 09/10/20 10:24 [facility] (Rec: 09/10/20 10:58 [facility] [id number]) Hot Pack/Cold Pack Treatment Hot Pack Location lumbar Patient Position Hooklying Treatment Duration (minutes) 15 PT-OP-T Assessment and Plan Start: 08/07/20 09:45 Freq: Status: Active Protocol: Document 09/10/20 10:24 [facility] (Rec: 09/10/20 10:58 [facility] [id number]) Physical Therapy Assessment Goals posture Short Term Goal (STG) Pt will show improvement in postural alignment by inc of VCT to 3/5. STG Duration 09/22/20 Shower Attendant Goal (LTG) Pt will show imrpoved postural alignment and staiblity in order to show improved ability to lift without inc pain by improvement of EFT to at least 3/5. strength Short Term Goal (STG) Pt will be indep w/HEP STG Duration 09/21/20 Mcfp Goal (LTG) Pt will improve LE strength to at least 4+/5 in all planes and LPM to at least 3/5 to show improved stability in order to inc pt's ability to participate in ADLs. LTG Duration 10/21/20 activities Short Term Goal (STG) Pt will have improved range of motion of hip and lumbar spine in order to allow ease w /donning/doffing socks. STG Duration 09/21/20 Shower Attendant Goal (LTG) Pt will return to being able to do at least 30 min of activity (biking or walking) without increased pain. LTG Duration 10/21/20 MANUEL Impairment 28/50 Short Term Goal (STG) Pt will improve MANUEL score to no more than 21/50 to show improved function. STG Duration 09/21/20 Mcfp Goal (LTG) Pt will improve MANUEL score to no more than 10/50 to show improved function. LTG Duration 10/21/20 Assessment Summary Assessment Pt requires cues for posture throughout exercises today. He states he has been thinking a lot about my posture at home and I think it's helping my breathing and my back pain. Encouraged pt to work on wall posture exercise at home, trying to keep back and arms pressed against wall. Physical Therapy Plan Frequency and Duration Frequency of Treatment 2x/Week Duration of Treatment 2 months Plan of Care Start Date 08/21/20 Plan of Care End Date 10/21/20 Therapeutic Interventions Therapeutic Interventions Aquatic Therapy,Balance Training,Gait Training,Home Exercise Program,Manual Therapy,Neuromuscular Re- education,Patient/Caregiver Education,Self-Care/Home Management,Soft Tissue Mobilization,Taping, Therapeutic Activities, Therapeutic Exercises Modalities Cold Pack/Ice Massage,Hot Packs Next Visit Focus/Plan Next Note Type Treatment Note Next Visit Plan Cont to work on hip and core stability and manual thereapy to dec pain, review hip/back stretches to dec pain
--- NOTE | 2020-09-12 11:03 | PT.OTN ---
Current Diagnoses Low back pain (09/12/20) Difficulty in walking, not elsewhere classified (09/12/20) Abnormal posture (09/12/20) Weakness (09/12/20) Physical Therapy Treatment Note PT-OP-A Visit Information Start: 08/07/20 09:45 Freq: Status: Active Protocol: Document 09/12/20 10:29 MA (Rec: 09/12/20 11:03 MA [id number]) Out-Patient Physical Therapy Visit Information Visit Information Visit Type Treatment Note Visit Note 11/27 Visit Start Time 10:15 Visit Stop Time 11:00 Total Visit Minutes 45 Visit Number 8 Number of AIRLINE RESERVATION AGENT Visits 2 PT-OP-B Current Condition Start: 08/07/20 09:45 Freq: Status: Active Protocol: Document 08/21/20 10:02 [facility] (Rec: 08/21/20 12:07 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 On admitted to ICU for anxiety, depression and overflow of fluids and CARDONA on Apr 14, 2019 and spent 5 days there then did rehab at [facility] for 18 days. He has been seeing mult MDs since then (roustabout crew pusher, Dr. Terrell- candy dipper, now Dr. Oliveira, then Dr. Aguirre-Oncologolist, and another Oncologist in [facility]). He was told he messed up his bladder and kidneys. On August he was referred to IRG until a month ago, he transferred care here for PT. He is going to see Pain management MD on September 24. He saw an Ortho surgeon and did a MRI of back which saw compressed disc. L&I wants him to go to [facility] to see MD. Pt notes he is having to work with attornies d/t his prior employer denying him working there. Employer now is finally saying he did work there. Pt is supposed to see ortho in [facility] September 23 but they have cancelled this last min 8 times already. Pt reports post neck pain comes and goes and has pain into shoulders and B upper arms. he notes he has trouble in his back even bending over to get to get to socks/shoes. Pt reprots getting exhausted a lot. Back can get so painful with lifting that he can barely move after. Pt reprots MDs are unsure if he has prostate cancer but are treating him w/ meds. He is on a lot of meds for his heart. Pt reprots he is taking an injection. 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 He has been very depressed since this injury d/t dec activity tolerance. [place], [place]. Prior Treatments and Tests PT-neck pain in the beginning then more recently back pain - only 2 sessions for back Treatment Goals Patient/Caregiver Goals Be able to put on socks/shoes easier PT-OP-C Subjective Start: 08/07/20 09:45 Freq: Status: Active Protocol: Document 09/12/20 10:29 MA (Rec: 09/12/20 11:03 MA [id number]) OP-PT Subjective Patient Comments Patient Comments I worked on my posture in bed , does that count. Pt also states he does not want to do hot pack today because last time he felt dizzy after he got up. PT-OP-F Manual Assessment Start: 08/07/20 09:45 Freq: Status: Active Protocol: Document 08/21/20 10:02 [facility] (Rec: 08/21/20 12:07 [facility] [id number]) Manual Assessments Soft Tissue Assessment Soft Tissue Mobility Assessment tight B QL & ES Joint Mobility Assessment Joint Mobility Assessment L iliac crest higher PT-OP-G Mobility & Gait Start: 08/07/20 09:45 Freq: Status: Active Protocol: Document 08/21/20 10:02 [facility] (Rec: 08/21/20 12:07 [facility] [id number]) OP Mobility Evaluation Bed Mobility Rolling scooches to roll-notes some abdomenal pain OP Gait Assessment Comments Gait Comments fwd leaned and lat shifts, dec push off PT-OP-J Posture/Palpation/Skin Start: 08/07/20 09:45 Freq: Status: Active Protocol: Document 08/21/20 10:02 [facility] (Rec: 08/21/20 12:07 [facility] [id number]) Posture Evaluation [facility] Postural Classification System Vertebral Compression Test 0 Lumbar Protective Mechanism Left AP 0 Lumbar Protective Mechanism Right AP 0 Lumbar Protective Mechanism Left PA 0 Lumbar Protective Mechanism Right PA 0 Comments Posture Comments inc kyphosis & fwd head/neck PT-OP-K Range of Motion Start: 08/07/20 09:45 Freq: Status: Active Protocol: Document 08/21/20 10:02 [facility] (Rec: 08/21/20 12:07 [facility] [id number]) Lumbar Spine Range of Motion Lumbar Spine Active Degrees Flexion 21 Extension 3 Rotation Left 28 Rotation Right 21 Lateral Flexion Left 10 Lateral Flexion Right 12 ROM Limitations Pain PT-OP-L Special Tests Start: 08/07/20 09:45 Freq: Status: Active Protocol: Document 08/21/20 10:02 [facility] (Rec: 08/21/20 12:07 [facility] [id number]) Special Tests Lumbar Spine Special Tests Slump Test Results positive B PT-OP-M Strength Start: 08/07/20 09:45 Freq: Status: Active Protocol: Document 08/21/20 10:02 [facility] (Rec: 08/21/20 12:07 [facility] [id number]) Hip Strength Hip Manual Muscle Testing Right Flexion (L2) 3 Fair Extension (S1) 2 Poor Abduction 3 Fair Internal Rotation 3 Fair Left Flexion (L2) 3 Fair Extension (S1) 2 Poor Abduction 3 Fair External Rotation 3 Fair Internal Rotation 3 Fair Knee Strength Knee Manual Muscle Testing Right Flexion (S2) 3+ Fair+ Extension (L3) 3+ Fair+ Left Flexion (S2) 3+ Fair+ Extension (L3) 3+ Fair+ Ankle/Foot Strength Ankle and Foot Manual Muscle Testing Right Dorsiflexion (L4) 4 Good Plantarflexion (S1) 4 Good Left Dorsiflexion (L4) 4- Good- Plantarflexion (S1) 4- Good- PT-OP-Q Treatments Start: 08/07/20 09:45 Freq: Status: Active Protocol: Document 09/12/20 10:29 MA (Rec: 09/12/20 11:03 MA [id number]) Therapeutic Exercises Supine Exercises pelvic tilt Reps/Minutes 10x 5 second hold Comments heavy cues to keep core engaged bridge Side bilateral Reps/Minutes 5 sec x10 Comments cues to keep core tight to avoid spinal extension Sidelying Exercises hip abd Side bilateral Reps/Minutes 10 clamshell Side bilateral Reps/Minutes 10 Standing Exercises wall squat Standing Exercise Name ball Side bilateral Reps/Minutes 2x15 Comments cues to avoid adduction of LEs hip abd Side bilateral Equipment Used yellow tband Reps/Minutes 2x10 hip ext Side bilateral Equipment Used yellow tband Reps/Minutes 2x10 resisted walk Standing Exercise Name fwd/back Side bilateral Equipment Used yellow tband Reps/Minutes 2x20ft side step Side bilateral Equipment Used yellow tband Reps/Minutes 2x20ft wall posture Standing Exercise Name w/B shoulder ext Side bilateral Reps/Minutes 5x 10 sec hold Comments focus on lumbar spine against wall Other Exercises quadruped Other Exercise Name 1. alt arm lifts 2. alt hip ext Side bilateral Reps/Minutes 10 ea Comments max cueing for back position PT-OP-R Modalities Start: 08/07/20 09:45 Freq: Status: Active Protocol: Document 09/10/20 10:24 MA (Rec: 09/10/20 10:58 MA [id number]) Hot Pack/Cold Pack Treatment Hot Pack Location lumbar Patient Position Hooklying Treatment Duration (minutes) 15 PT-OP-T Assessment and Plan Start: 08/07/20 09:45 Freq: Status: Active Protocol: Document 09/12/20 10:29 MA (Rec: 09/12/20 11:03 MA [id number]) Physical Therapy Assessment Goals posture Short Term Goal (STG) Pt will show improvement in postural alignment by inc of VCT to 3/5. STG Duration 09/22/20 Shelter Goal (LTG) Pt will show imrpoved postural alignment and staiblity in order to show improved ability to lift without inc pain by improvement of EFT to at least 3/5. strength Short Term Goal (STG) Pt will be indep w/HEP STG Duration 09/21/20 Shelter Goal (LTG) Pt will improve LE strength to at least 4+/5 in all planes and LPM to at least 3/5 to show improved stability in order to inc pt's ability to participate in ADLs. LTG Duration 10/21/20 activities Short Term Goal (STG) Pt will have improved range of motion of hip and lumbar spine in order to allow ease w /donning/doffing socks. STG Duration 09/21/20 Shelter Goal (LTG) Pt will return to being able to do at least 30 min of activity (biking or walking) without increased pain. LTG Duration 10/21/20 MANUEL Impairment 28/50 Short Term Goal (STG) Pt will improve MANUEL score to no more than 21/50 to show improved function. STG Duration 09/21/20 Tube Man Goal (LTG) Pt will improve MANUEL score to no more than 10/50 to show improved function. LTG Duration 10/21/20 Assessment Summary Assessment Joel was easily distracted today. He needed many cues throughout exercises for proper form. During a review of HEP exercises, it was clear pt is not doing exercises at home. During pelvic tilts, pt extended lumbar spine instead of flexing into mat. Pt has a hard time holding TrA during tilts for longer than 2-3 seconds. Encouraged pt to work on pelvic tilts and wall posture to increase TrA awareness, postural awareness, and decrease back pain at home. Will review again next session to see if pt has improved. Addressed pt's dizziness after hot pack last session, encouraging pt to drink more fluids and possibly decreasing from 15-10 minutes next session. Physical Therapy Plan Frequency and Duration Frequency of Treatment 2x/Week Duration of Treatment 2 months Plan of Care Start Date 08/21/20 Plan of Care End Date 10/21/20 Therapeutic Interventions Therapeutic Interventions Aquatic Therapy,Balance Training,Gait Training,Home Exercise Program,Manual Therapy,Neuromuscular Re- education,Patient/Caregiver Education,Self-Care/Home Management,Soft Tissue Mobilization,Taping, Therapeutic Activities, Therapeutic Exercises Modalities Cold Pack/Ice Massage,Hot Packs Next Visit Focus/Plan Next Note Type Treatment Note Next Visit Plan Review wall posture and pelvic tilts. Cont to work on hip and core stability and manual thereapy to dec pain, review hip/back stretches to dec pain
--- NOTE | 2020-09-21 14:29 | PT.OTN ---
Current Diagnoses Low back pain (09/21/20) Difficulty in walking, not elsewhere classified (09/21/20) Abnormal posture (09/21/20) Weakness (09/21/20) Physical Therapy Treatment Note PT-OP-A Visit Information Start: 08/07/20 09:45 Freq: Status: Active Protocol: Document 09/21/20 13:44 MA (Rec: 09/21/20 14:29 MA [id number]) Out-Patient Physical Therapy Visit Information Visit Information Visit Type Treatment Note Visit Note 12/28 Visit Start Time 13:45 Visit Stop Time 14:28 Total Visit Minutes 43 Visit Number 9 Number of BUFFER CHROME Visits 3 PT-OP-B Current Condition Start: 08/07/20 09:45 Freq: Status: Active Protocol: Document 08/21/20 10:02 [facility] (Rec: 08/21/20 12:07 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 On admitted to ICU for anxiety, depression and overflow of fluids and CARDONA on Apr 14, 2019 and spent 5 days there then did rehab at [facility] for 18 days. He has been seeing mult MDs since then (radiology director, Dr. Terrell- tool engine lathe set up operator, now Dr. Oliveira, then Dr. Aguirre-Oncologolist, and another Oncologist in [facility]). He was told he messed up his bladder and kidneys. On August he was referred to IRG until a month ago, he transferred care here for PT. He is going to see Pain management MD on September 24. He saw an Ortho surgeon and did a MRI of back which saw compressed disc. L&I wants him to go to [facility] to see MD. Pt notes he is having to work with attornies d/t his prior employer denying him working there. Employer now is finally saying he did work there. Pt is supposed to see ortho in [facility] September 23 but they have cancelled this last min 8 times already. Pt reports post neck pain comes and goes and has pain into shoulders and B upper arms. he notes he has trouble in his back even bending over to get to get to socks/shoes. Pt reprots getting exhausted a lot. Back can get so painful with lifting that he can barely move after. Pt reprots MDs are unsure if he has prostate cancer but are treating him w/ meds. He is on a lot of meds for his heart. Pt reprots he is taking an injection. 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 He has been very depressed since this injury d/t dec activity tolerance. [place], and [place]. Prior Treatments and Tests PT-neck pain in the beginning then more recently back pain - only 2 sessions for back Treatment Goals Patient/Caregiver Goals Be able to put on socks/shoes easier PT-OP-C Subjective Start: 08/07/20 09:45 Freq: Status: Active Protocol: Document 09/21/20 13:44 MA (Rec: 09/21/20 14:29 MA [id number]) OP-PT Subjective Patient Comments Patient Comments I wokred on my BMW and went for a long bike ride and my back has been sore now. PT-OP-F Manual Assessment Start: 08/07/20 09:45 Freq: Status: Active Protocol: Document 08/21/20 10:02 [facility] (Rec: 08/21/20 12:07 [facility] [id number]) Manual Assessments Soft Tissue Assessment Soft Tissue Mobility Assessment tight B QL & ES Joint Mobility Assessment Joint Mobility Assessment L iliac crest higher PT-OP-G Mobility & Gait Start: 08/07/20 09:45 Freq: Status: Active Protocol: Document 08/21/20 10:02 [facility] (Rec: 08/21/20 12:07 [facility] [id number]) OP Mobility Evaluation Bed Mobility Rolling scooches to roll-notes some abdomenal pain OP Gait Assessment Comments Gait Comments fwd leaned and lat shifts, dec push off PT-OP-J Posture/Palpation/Skin Start: 08/07/20 09:45 Freq: Status: Active Protocol: Document 08/21/20 10:02 [facility] (Rec: 08/21/20 12:07 [facility] [id number]) Posture Evaluation [facility] Postural Classification System Vertebral Compression Test 0 Lumbar Protective Mechanism Left AP 0 Lumbar Protective Mechanism Right AP 0 Lumbar Protective Mechanism Left PA 0 Lumbar Protective Mechanism Right PA 0 Comments Posture Comments inc kyphosis & fwd head/neck PT-OP-K Range of Motion Start: 08/07/20 09:45 Freq: Status: Active Protocol: Document 08/21/20 10:02 [facility] (Rec: 08/21/20 12:07 [facility] [id number]) Lumbar Spine Range of Motion Lumbar Spine Active Degrees Flexion 21 Extension 3 Rotation Left 28 Rotation Right 21 Lateral Flexion Left 10 Lateral Flexion Right 12 ROM Limitations Pain PT-OP-L Special Tests Start: 08/07/20 09:45 Freq: Status: Active Protocol: Document 08/21/20 10:02 [facility] (Rec: 08/21/20 12:07 [facility] [id number]) Special Tests Lumbar Spine Special Tests Slump Test Results positive B PT-OP-M Strength Start: 08/07/20 09:45 Freq: Status: Active Protocol: Document 08/21/20 10:02 [facility] (Rec: 08/21/20 12:07 [facility] [id number]) Hip Strength Hip Manual Muscle Testing Right Flexion (L2) 3 Fair Extension (S1) 2 Poor Abduction 3 Fair Internal Rotation 3 Fair Left Flexion (L2) 3 Fair Extension (S1) 2 Poor Abduction 3 Fair External Rotation 3 Fair Internal Rotation 3 Fair Knee Strength Knee Manual Muscle Testing Right Flexion (S2) 3+ Fair+ Extension (L3) 3+ Fair+ Left Flexion (S2) 3+ Fair+ Extension (L3) 3+ Fair+ Ankle/Foot Strength Ankle and Foot Manual Muscle Testing Right Dorsiflexion (L4) 4 Good Plantarflexion (S1) 4 Good Left Dorsiflexion (L4) 4- Good- Plantarflexion (S1) 4- Good- PT-OP-Q Treatments Start: 08/07/20 09:45 Freq: Status: Active Protocol: Document 09/21/20 13:44 MA (Rec: 09/21/20 14:29 MA [id number]) Therapeutic Exercises Supine Exercises pirformis stretch Side bilateral Reps/Minutes 30 sec HS Supine Exercise Name Active quad engagement for HS stretch Side bilateral Reps/Minutes 15sec x2 flex Supine Exercise Name single leg flex isometric Side bilateral Reps/Minutes 6x15 sec pelvic tilt Reps/Minutes 10x 5 second hold Comments heavy cues to keep core engaged bridge Side bilateral Reps/Minutes 10x 5 sec hold Comments cues to keep core tight to avoid spinal extension Sidelying Exercises hip abd Side bilateral Reps/Minutes 10 clamshell Side bilateral Reps/Minutes 10 Standing Exercises side step Side bilateral Equipment Used yellow tband Reps/Minutes 2x20ft wall posture Standing Exercise Name w/B shoulder ext Side bilateral Reps/Minutes 5x 10 sec hold Comments focus on lumbar spine against wall Manual Therapy Treatment Soft Tissue Mobilization lumbar Body Location ES, QL, lumbosacral fascia Mobilization Type Myofascial Release,Rolling, Strumming Intensity/Depth Moderate Body Position Prone PT-OP-R Modalities Start: 08/07/20 09:45 Freq: Status: Active Protocol: Document 09/10/20 10:24 MA (Rec: 09/10/20 10:58 MA [id number]) Hot Pack/Cold Pack Treatment Hot Pack Location lumbar Patient Position Hooklying Treatment Duration (minutes) 15 PT-OP-T Assessment and Plan Start: 08/07/20 09:45 Freq: Status: Active Protocol: Document 09/21/20 13:44 MA (Rec: 09/21/20 14:29 MA [id number]) Physical Therapy Assessment Goals posture Short Term Goal (STG) Pt will show improvement in postural alignment by inc of VCT to 3/5. STG Duration 09/22/20 Dormitory Maid Goal (LTG) Pt will show imrpoved postural alignment and staiblity in order to show improved ability to lift without inc pain by improvement of EFT to at least 3/5. strength Short Term Goal (STG) Pt will be indep w/HEP STG Duration 09/21/20 Assisted Goal (LTG) Pt will improve LE strength to at least 4+/5 in all planes and LPM to at least 3/5 to show improved stability in order to inc pt's ability to participate in ADLs. LTG Duration 10/21/20 activities Short Term Goal (STG) Pt will have improved range of motion of hip and lumbar spine in order to allow ease w /donning/doffing socks. STG Duration 09/21/20 Dormitory Maid Goal (LTG) Pt will return to being able to do at least 30 min of activity (biking or walking) without increased pain. LTG Duration 10/21/20 MANUEL Impairment 28/50 Short Term Goal (STG) Pt will improve MANUEL score to no more than 21/50 to show improved function. STG Duration 09/21/20 Dormitory Maid Goal (LTG) Pt will improve MANUEL score to no more than 10/50 to show improved function. LTG Duration 10/21/20 Assessment Summary Assessment Joel did better today with HEP exercises, only neding cues during SL abduction for hip positioning. He shows better core control during pelvic tucks and bridges. Joel self corrects during resisted fwd and side steps when he begins to drag his feet but needs cues for thoracic extension. He continues to have a hard time not extending spine during wall posture, requiring constant cues for positioning throughout exercise. Physical Therapy Plan Frequency and Duration Frequency of Treatment 2x/Week Duration of Treatment 2 months Plan of Care Start Date 08/21/20 Plan of Care End Date 10/21/20 Therapeutic Interventions Therapeutic Interventions Aquatic Therapy,Balance Training,Gait Training,Home Exercise Program,Manual Therapy,Neuromuscular Re- education,Patient/Caregiver Education,Self-Care/Home Management,Soft Tissue Mobilization,Taping, Therapeutic Activities, Therapeutic Exercises Modalities Cold Pack/Ice Massage,Hot Packs Next Visit Focus/Plan Next Note Type Treatment Note Next Visit Plan Focus on posture. Cont to work on hip and core stability and manual thereapy to dec pain, review hip/back stretches to dec pain
--- NOTE | 2020-09-26 09:47 | PT.OTN ---
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 On admitted to ICU for anxiety, depression and overflow of fluids and CARDONA on Apr 14, 2019 and spent 5 days there then did rehab at [facility] for 18 days. He has been seeing mult MDs since then (professional advisor, Dr. Terrell- manager division, now Dr. Oliveira, then Dr. Aguirre-Oncologolist, and another Oncologist in [facility]). He was told he messed up his bladder and kidneys. On August he was referred to [facility] until a month ago, he transferred care here for PT. He is going to see Pain management MD on September 24. He saw an Ortho surgeon and did a MRI of back which saw compressed disc. L&I wants him to go to [facility] to see MD. Pt notes he is having to work with attornies d/t his prior employer denying him working there. Employer now is finally saying he did work there. Pt is supposed to see ortho in [facility] September 23 but they have cancelled this last min 8 times already. Pt reports post neck pain comes and goes and has pain into shoulders and B upper arms. he notes he has trouble in his back even bending over to get to get to socks/shoes. Pt reprots getting exhausted a lot. Back can get so painful with lifting that he can barely move after. Pt reprots MDs are unsure if he has prostate cancer but are treating him w/ meds. He is on a lot of meds for his heart. Pt reprots he is taking an injection. 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 He has been very depressed since this injury d/t dec activity tolerance. [place], [place]. Prior Treatments and Tests PT-neck pain in the beginning then more recently back pain - only 2 sessions for back Treatment Goals Patient/Caregiver Goals Be able to put on socks/shoes easier PT-OP-C Subjective Start: 08/07/20 09:45 Freq: Status: Active Protocol: Document 09/26/20 09:08 [facility] (Rec: 09/26/20 09:46 [facility] [id number]) OP-PT Subjective Patient Comments Patient Comments Pt reports he saw Dr. Aguirre and it sounds like he has a GI bleed and they want to do a test to figure out where. He is now going on B12 and iron d /t deficiencies. He ordered himself his ebike. He doesnt want to do hot pack d/t feeling lightheaded after last time PT-OP-F Manual Assessment Start: 08/07/20 09:45 Freq: Status: Active Protocol: Document 08/21/20 10:02 [facility] (Rec: 08/21/20 12:07 [facility] [id number]) Manual Assessments Soft Tissue Assessment Soft Tissue Mobility Assessment tight B QL & ES Joint Mobility Assessment Joint Mobility Assessment L iliac crest higher PT-OP-G Mobility & Gait Start: 08/07/20 09:45 Freq: Status: Active Protocol: Document 08/21/20 10:02 [facility] (Rec: 08/21/20 12:07 [facility] [id number]) OP Mobility Evaluation Bed Mobility Rolling scooches to roll-notes some abdomenal pain OP Gait Assessment Comments Gait Comments fwd leaned and lat shifts, dec push off PT-OP-J Posture/Palpation/Skin Start: 08/07/20 09:45 Freq: Status: Active Protocol: Document 09/26/20 09:08 [facility] (Rec: 09/26/20 09:46 [facility] [id number]) Posture Evaluation [facility] Postural Classification System Vertebral Compression Test 2 Elbow Flexion Test 0 PT-OP-K Range of Motion Start: 08/07/20 09:45 Freq: Status: Active Protocol: Document 09/26/20 09:08 [facility] (Rec: 09/26/20 09:46 [facility] [id number]) Lumbar Spine Range of Motion Lumbar Spine Active Degrees Flexion 35 Extension 10 Rotation Left 43 Rotation Right 42 Lateral Flexion Left 12 Lateral Flexion Right 15 ROM Limitations Pain PT-OP-L Special Tests Start: 08/07/20 09:45 Freq: Status: Active Protocol: Document 08/21/20 10:02 [facility] (Rec: 08/21/20 12:07 [facility] [id number]) Special Tests Lumbar Spine Special Tests Slump Test Results positive B PT-OP-M Strength Start: 08/07/20 09:45 Freq: Status: Active Protocol: Document 09/26/20 09:08 [facility] (Rec: 09/26/20 09:46 [facility] [id number]) Hip Strength Hip Manual Muscle Testing Right Flexion (L2) 3+ Fair+ Extension (S1) 3 Fair Abduction 4- Good- External Rotation 4- Good- Internal Rotation 4 Good Left Flexion (L2) 3+ Fair+ Extension (S1) 3 Fair Abduction 4- Good- External Rotation 3+ Fair+ Internal Rotation 4 Good Knee Strength Knee Manual Muscle Testing Right Flexion (S2) 4- Good- Extension (L3) 4 Good Left Flexion (S2) 4- Good- Extension (L3) 4- Good- Ankle/Foot Strength Ankle and Foot Manual Muscle Testing Right Dorsiflexion (L4) 4+ Good+ Plantarflexion (S1) 4+ Good+ Comments PF tested seated Left Dorsiflexion (L4) 4 Good Plantarflexion (S1) 4+ Good+ PT-OP-Q Treatments Start: 08/07/20 09:45 Freq: Status: Active Protocol: Document 09/26/20 09:08 [facility] (Rec: 09/26/20 09:46 [facility] [id number]) Cardio Equipment Recumbent Stepper (Sci-Fit) Duration (Minutes) 8 Resistance 5 Seat Position 10 Therapeutic Exercises Sitting Exercises stretch Sitting Exercise Name piriformis Side bilateral Reps/Minutes 30 sec Standing Exercises wall squat Standing Exercise Name standing squat at rail w/chair behind Side bilateral Reps/Minutes 15 side step Side bilateral Equipment Used red tband Reps/Minutes 2x20ft wall posture Standing Exercise Name w/B shoulder ext Side bilateral Reps/Minutes 5x 10 sec hold Comments focus on lumbar spine against wall Manual Therapy Treatment Soft Tissue Mobilization lumbar Body Location ES, QL, lumbosacral fascia Mobilization Type Myofascial Release,Rolling, Strumming Intensity/Depth Moderate Body Position Prone Joint Mobilizations hip Direction Hip on axis ER FM Body Position Prone Comments neuromuscular facilitation for ER w/ant glide for manual training PT-OP-R Modalities Start: 08/07/20 09:45 Freq: Status: Active Protocol: Document 09/10/20 10:24 [facility] (Rec: 09/10/20 10:58 [facility] [id number]) Hot Pack/Cold Pack Treatment Hot Pack Location lumbar Patient Position Hooklying Treatment Duration (minutes) 15 PT-OP-T Assessment and Plan Start: 08/07/20 09:45 Freq: Status: Active Protocol: Document 09/26/20 09:08 [facility] (Rec: 09/26/20 09:46 [facility] [id number]) Physical Therapy Assessment Goals posture Short Term Goal (STG) Pt will show improvement in postural alignment by inc of VCT to 3. 09/25-2 STG Duration 09/22/20 Senior Living Goal (LTG) Pt will show imrpoved postural alignment and staiblity in order to show improved ability to lift without inc pain by improvement of EFT to at least 3/5. strength Short Term Goal (STG) Pt will be indep w/HEP STG Duration achieved Senior Living Goal (LTG) Pt will improve LE strength to at least 4+/5 in all planes and LPM to at least 3/5 to show improved stability in order to inc pt's ability to participate in ADLs. 09/25 improved LTG Duration 10/21/20 activities Short Term Goal (STG) Pt will have improved range of motion of hip and lumbar spine in order to allow ease w /donning/doffing socks. 09/26 still some difficulty STG Duration 09/21/20 Weighter Goal (LTG) Pt will return to being able to do at least 30 min of activity (biking or walking) without increased pain. 09/26-bikes to post office and back about 10-20 min LTG Duration 10/21/20 MANUEL Impairment 28/50 Short Term Goal (STG) Pt will improve MANUEL score to no more than 21/50 to show improved function. STG Duration 09/21/20 Senior Living Goal (LTG) Pt will improve MANUEL score to no more than 10/50 to show improved function. LTG Duration 10/21/20 Assessment Summary Assessment Pt still requires cues for posture against wall. He is very limited in hip range which likely is what affects his ability to don socks and shoes. he required max edu re: not walking if feeling lightheaded or dizzy. Physical Therapy Plan Frequency and Duration Frequency of Treatment 2x/Week Duration of Treatment 2 months Plan of Care Start Date 08/21/20 Plan of Care End Date 10/21/20 Next Visit Focus/Plan Next Note Type Treatment Note Next Visit Plan Focus on posture. Cont to work on hip and core stability and manual thereapy to dec pain, review hip/back stretches to dec pain
--- NOTE | 2020-09-28 11:58 | PT.OTN ---
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 On admitted to ICU for anxiety, depression and overflow of fluids and CARDONA on Apr 14, 2019 and spent 5 days there then did rehab at [facility] for 18 days. He has been seeing mult MDs since then (steamtable worker, Dr. Terrell- hospital aides and assistants teacher, now Dr. Oliveira, then Dr. Aguirre-Oncologolist, and another Oncologist in [facility]). He was told he messed up his bladder and kidneys. On August he was referred to IRG until a month ago, he transferred care here for PT. He is going to see Pain management MD on September 24. He saw an Ortho surgeon and did a MRI of back which saw compressed disc. L&I wants him to go to [facility] to see MD. Pt notes he is having to work with attornies d/t his prior employer denying him working there. Employer now is finally saying he did work there. Pt is supposed to see ortho in [facility] September 23 but they have cancelled this last min 8 times already. Pt reports post neck pain comes and goes and has pain into shoulders and B upper arms. he notes he has trouble in his back even bending over to get to get to socks/shoes. Pt reprots getting exhausted a lot. Back can get so painful with lifting that he can barely move after. Pt reprots MDs are unsure if he has prostate cancer but are treating him w/ meds. He is on a lot of meds for his heart. Pt reprots he is taking an injection. 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 He has been very depressed since this injury d/t dec activity tolerance. [place], and [place]. Prior Treatments and Tests PT-neck pain in the beginning then more recently back pain - only 2 sessions for back Treatment Goals Patient/Caregiver Goals Be able to put on socks/shoes easier PT-OP-C Subjective Start: 08/07/20 09:45 Freq: Status: Active Protocol: Document 09/28/20 11:20 [facility] (Rec: 09/28/20 11:58 [facility] [id number]) OP-PT Subjective Patient Comments Patient Comments Pt recieved his e-bike and road it a lot yesterday. He states it is much different than a regular bike and that's why his back might be more sore. He also had to drive down to [place] and back to get the e-bike which may have caused the increased LBP. PT-OP-F Manual Assessment Start: 08/07/20 09:45 Freq: Status: Active Protocol: Document 08/21/20 10:02 [facility] (Rec: 08/21/20 12:07 [facility] [id number]) Manual Assessments Soft Tissue Assessment Soft Tissue Mobility Assessment tight B QL & ES Joint Mobility Assessment Joint Mobility Assessment L iliac crest higher PT-OP-G Mobility & Gait Start: 08/07/20 09:45 Freq: Status: Active Protocol: Document 08/21/20 10:02 [facility] (Rec: 08/21/20 12:07 [facility] [id number]) OP Mobility Evaluation Bed Mobility Rolling scooches to roll-notes some abdomenal pain OP Gait Assessment Comments Gait Comments fwd leaned and lat shifts, dec push off PT-OP-J Posture/Palpation/Skin Start: 08/07/20 09:45 Freq: Status: Active Protocol: Document 09/26/20 09:08 [facility] (Rec: 09/26/20 09:46 [facility] [id number]) Posture Evaluation [facility] Postural Classification System Vertebral Compression Test 2 Elbow Flexion Test 0 PT-OP-K Range of Motion Start: 08/07/20 09:45 Freq: Status: Active Protocol: Document 09/26/20 09:08 [facility] (Rec: 09/26/20 09:46 [facility] [id number]) Lumbar Spine Range of Motion Lumbar Spine Active Degrees Flexion 35 Extension 10 Rotation Left 43 Rotation Right 42 Lateral Flexion Left 12 Lateral Flexion Right 15 ROM Limitations Pain PT-OP-L Special Tests Start: 08/07/20 09:45 Freq: Status: Active Protocol: Document 08/21/20 10:02 [facility] (Rec: 08/21/20 12:07 [facility] [id number]) Special Tests Lumbar Spine Special Tests Slump Test Results positive B PT-OP-M Strength Start: 08/07/20 09:45 Freq: Status: Active Protocol: Document 09/26/20 09:08 [facility] (Rec: 09/26/20 09:46 [facility] [id number]) Hip Strength Hip Manual Muscle Testing Right Flexion (L2) 3+ Fair+ Extension (S1) 3 Fair Abduction 4- Good- External Rotation 4- Good- Internal Rotation 4 Good Left Flexion (L2) 3+ Fair+ Extension (S1) 3 Fair Abduction 4- Good- External Rotation 3+ Fair+ Internal Rotation 4 Good Knee Strength Knee Manual Muscle Testing Right Flexion (S2) 4- Good- Extension (L3) 4 Good Left Flexion (S2) 4- Good- Extension (L3) 4- Good- Ankle/Foot Strength Ankle and Foot Manual Muscle Testing Right Dorsiflexion (L4) 4+ Good+ Plantarflexion (S1) 4+ Good+ Comments PF tested seated Left Dorsiflexion (L4) 4 Good Plantarflexion (S1) 4+ Good+ PT-OP-Q Treatments Start: 08/07/20 09:45 Freq: Status: Active Protocol: Document 09/28/20 11:20 [facility] (Rec: 09/28/20 11:58 [facility] [id number]) Cardio Equipment Recumbent Stepper (Sci-Fit) Duration (Minutes) 8 Resistance 5 Seat Position 10 Therapeutic Exercises Sitting Exercises stretch Sitting Exercise Name piriformis Side bilateral Reps/Minutes 30 sec Standing Exercises wall squat Standing Exercise Name standing squat at rail w/chair behind Side bilateral Reps/Minutes 2x15 resisted walk Standing Exercise Name fwd/back Side bilateral Equipment Used red tband Reps/Minutes 2x20ft side step Side bilateral Equipment Used red tband Reps/Minutes 2x20ft wall posture Standing Exercise Name w/B shoulder ext Side bilateral Reps/Minutes 5x 10 sec hold Comments focus on lumbar spine against wall Manual Therapy Treatment Soft Tissue Mobilization lumbar Body Location ES, QL, lumbosacral fascia Mobilization Type Myofascial Release,Rolling, Strumming Intensity/Depth Moderate Body Position Prone PT-OP-R Modalities Start: 08/07/20 09:45 Freq: Status: Active Protocol: Document 09/10/20 10:24 [facility] (Rec: 09/10/20 10:58 [facility] [id number]) Hot Pack/Cold Pack Treatment Hot Pack Location lumbar Patient Position Hooklying Treatment Duration (minutes) 15 PT-OP-T Assessment and Plan Start: 08/07/20 09:45 Freq: Status: Active Protocol: Document 09/28/20 11:20 [facility] (Rec: 09/28/20 11:58 [facility] [id number]) Physical Therapy Assessment Goals posture Short Term Goal (STG) Pt will show improvement in postural alignment by inc of VCT to 3. 09/25-2 STG Duration 09/22/20 Researcher Goal (LTG) Pt will show imrpoved postural alignment and staiblity in order to show improved ability to lift without inc pain by improvement of EFT to at least 3/5. strength Short Term Goal (STG) Pt will be indep w/HEP STG Duration achieved Correction Goal (LTG) Pt will improve LE strength to at least 4+/5 in all planes and LPM to at least 3/5 to show improved stability in order to inc pt's ability to participate in ADLs. 09/25 improved LTG Duration 10/21/20 activities Short Term Goal (STG) Pt will have improved range of motion of hip and lumbar spine in order to allow ease w /donning/doffing socks. 09/26 still some difficulty STG Duration 09/21/20 Correction Goal (LTG) Pt will return to being able to do at least 30 min of activity (biking or walking) without increased pain. 09/26-bikes to post office and back about 10-20 min LTG Duration 10/21/20 MANUEL Impairment 28/50 Short Term Goal (STG) Pt will improve MANUEL score to no more than 21/50 to show improved function. STG Duration 09/21/20 Correction Goal (LTG) Pt will improve MANUEL score to no more than 10/50 to show improved function. LTG Duration 10/21/20 Assessment Summary Assessment Pt did much better with wall posture today compared to previous sessions but continues to have difficulty multi-tasking, holding position while talking for more than 5-8 seconds. Pt states after STM today that his back already feels much better than when I came in. Pt needs frequent cues for posture during squats and would benefit from continued therapy to improve form for decreasing back pain during functional activities. Physical Therapy Plan Frequency and Duration Frequency of Treatment 2x/Week Duration of Treatment 2 months Plan of Care Start Date 08/21/20 Plan of Care End Date 10/21/20 Therapeutic Interventions Therapeutic Interventions Aquatic Therapy,Balance Training,Gait Training,Home Exercise Program,Manual Therapy,Neuromuscular Re- education,Patient/Caregiver Education,Self-Care/Home Management,Soft Tissue Mobilization,Taping, Therapeutic Activities, Therapeutic Exercises Modalities Cold Pack/Ice Massage,Hot Packs Next Visit Focus/Plan Next Note Type Treatment Note Next Visit Plan Have pt add more appts, POC ends October 21 currently Focus on posture. Cont to work on hip and core stability and manual thereapy to dec pain, review hip/back stretches to dec pain
--- NOTE | 2020-10-01 10:29 | PT.OTN ---
Current Diagnoses Low back pain (10/01/20) Difficulty in walking, not elsewhere classified (10/01/20) Abnormal posture (10/01/20) Weakness (10/01/20) Physical Therapy Treatment Note PT-OP-A Visit Information Start: 08/07/20 09:45 Freq: Status: Active Protocol: Document 10/01/20 09:51 [facility] (Rec: 10/01/20 10:29 [facility] [id number]) Out-Patient Physical Therapy Visit Information Visit Information Visit Type Treatment Note Visit Note 06/27 Visit Start Time 09:48 Visit Stop Time 10:26 Total Visit Minutes 38 Visit Number 12 Number of SHIRT OPERATOR Visits 0 PT-OP-B Current Condition Start: 08/07/20 09:45 Freq: Status: Active Protocol: Document 08/21/20 10:02 [facility] (Rec: 08/21/20 12:07 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 On admitted to ICU for anxiety, depression and overflow of fluids and CARDONA on Apr 14, 2019 and spent 5 days there then did rehab at [facility] for 18 days. He has been seeing mult MDs since then (bicycle subassembler, Dr. Terrell- cane loader, now Dr. Oliveira, then Dr. Aguirre-Oncologolist, and another Oncologist in [facility]). He was told he messed up his bladder and kidneys. On August he was referred to [facility] until a month ago, he transferred care here for PT. He is going to see Pain management MD on September 24. He saw an Ortho surgeon and did a MRI of back which saw compressed disc. L&I wants him to go to [facility] to see MD. Pt notes he is having to work with attornies d/t his prior employer denying him working there. Employer now is finally saying he did work there. Pt is supposed to see ortho in [facility] September 23 but they have cancelled this last min 8 times already. Pt reports post neck pain comes and goes and has pain into shoulders and B upper arms. he notes he has trouble in his back even bending over to get to get to socks/shoes. Pt reprots getting exhausted a lot. Back can get so painful with lifting that he can barely move after. Pt reprots MDs are unsure if he has prostate cancer but are treating him w/ meds. He is on a lot of meds for his heart. Pt reprots he is taking an injection. 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 He has been very depressed since this injury d/t dec activity tolerance. [place], [place]. Prior Treatments and Tests PT-neck pain in the beginning then more recently back pain - only 2 sessions for back Treatment Goals Patient/Caregiver Goals Be able to put on socks/shoes easier PT-OP-C Subjective Start: 08/07/20 09:45 Freq: Status: Active Protocol: Document 10/01/20 09:51 [facility] (Rec: 10/01/20 10:29 [facility] [id number]) OP-PT Subjective Patient Comments Patient Comments Pt reports he rodmichael david goyal and over by the [employer] and worked on bike posture and that helped a lot. PT-OP-F Manual Assessment Start: 08/07/20 09:45 Freq: Status: Active Protocol: Document 08/21/20 10:02 [facility] (Rec: 08/21/20 12:07 [facility] [id number]) Manual Assessments Soft Tissue Assessment Soft Tissue Mobility Assessment tight B QL & ES Joint Mobility Assessment Joint Mobility Assessment L iliac crest higher PT-OP-G Mobility & Gait Start: 08/07/20 09:45 Freq: Status: Active Protocol: Document 08/21/20 10:02 [facility] (Rec: 08/21/20 12:07 [facility] [id number]) OP Mobility Evaluation Bed Mobility Rolling scooches to roll-notes some abdomenal pain OP Gait Assessment Comments Gait Comments fwd leaned and lat shifts, dec push off PT-OP-J Posture/Palpation/Skin Start: 08/07/20 09:45 Freq: Status: Active Protocol: Document 09/26/20 09:08 [facility] (Rec: 09/26/20 09:46 [facility] [id number]) Posture Evaluation Bronson Postural Classification System Vertebral Compression Test 2 Elbow Flexion Test 0 PT-OP-K Range of Motion Start: 08/07/20 09:45 Freq: Status: Active Protocol: Document 09/26/20 09:08 [facility] (Rec: 09/26/20 09:46 [facility] [id number]) Lumbar Spine Range of Motion Lumbar Spine Active Degrees Flexion 35 Extension 10 Rotation Left 43 Rotation Right 42 Lateral Flexion Left 12 Lateral Flexion Right 15 ROM Limitations Pain PT-OP-L Special Tests Start: 08/07/20 09:45 Freq: Status: Active Protocol: Document 08/21/20 10:02 [facility] (Rec: 08/21/20 12:07 [facility] [id number]) Special Tests Lumbar Spine Special Tests Slump Test Results positive B PT-OP-M Strength Start: 08/07/20 09:45 Freq: Status: Active Protocol: Document 09/26/20 09:08 [facility] (Rec: 09/26/20 09:46 [facility] [id number]) Hip Strength Hip Manual Muscle Testing Right Flexion (L2) 3+ Fair+ Extension (S1) 3 Fair Abduction 4- Good- External Rotation 4- Good- Internal Rotation 4 Good Left Flexion (L2) 3+ Fair+ Extension (S1) 3 Fair Abduction 4- Good- External Rotation 3+ Fair+ Internal Rotation 4 Good Knee Strength Knee Manual Muscle Testing Right Flexion (S2) 4- Good- Extension (L3) 4 Good Left Flexion (S2) 4- Good- Extension (L3) 4- Good- Ankle/Foot Strength Ankle and Foot Manual Muscle Testing Right Dorsiflexion (L4) 4+ Good+ Plantarflexion (S1) 4+ Good+ Comments PF tested seated Left Dorsiflexion (L4) 4 Good Plantarflexion (S1) 4+ Good+ PT-OP-Q Treatments Start: 08/07/20 09:45 Freq: Status: Active Protocol: Document 10/01/20 09:51 [facility] (Rec: 10/01/20 10:29 [facility] [id number]) Cardio Equipment Recumbent Stepper (Sci-Fit) Duration (Minutes) 8 Resistance 7 Seat Position 10 Therapeutic Exercises Supine Exercises bridge Supine Exercise Name w/alt marches Side bilateral Reps/Minutes 15 Comments max cueing for pelvis position & sequence Standing Exercises wall squat Standing Exercise Name standing squat at rail w/chair behind Side bilateral Reps/Minutes 2x15 resisted walk Standing Exercise Name fwd/back Side bilateral Equipment Used red tband Reps/Minutes 2x20ft side step Side bilateral Equipment Used red tband Reps/Minutes 2x20ft wall posture Standing Exercise Name w/B shoulder ext Side bilateral Reps/Minutes 3x15 sec Comments focus on lumbar spine against wall Other Exercises cat/camel Reps/Minutes 15 ea jess pose Reps/Minutes 30 sec quadruped Other Exercise Name 1. alt arm lifts 2. alt hip ext Side bilateral Reps/Minutes 15 ea Comments max cueing for back position Manual Therapy Treatment Soft Tissue Mobilization lumbar Body Location ES, QL, lumbosacral fascia Mobilization Type Myofascial Release,Rolling, Strumming Intensity/Depth Moderate Body Position Prone Joint Mobilizations hip Joint B Direction Hip on axis ER FM Body Position Prone Comments neuromuscular facilitation for ER w/ant glide for manual training PT-OP-R Modalities Start: 08/07/20 09:45 Freq: Status: Active Protocol: Document 09/10/20 10:24 [facility] (Rec: 09/10/20 10:58 [facility] [id number]) Hot Pack/Cold Pack Treatment Hot Pack Location lumbar Patient Position Hooklying Treatment Duration (minutes) 15 PT-OP-T Assessment and Plan Start: 08/07/20 09:45 Freq: Status: Active Protocol: Document 10/01/20 09:51 [facility] (Rec: 10/01/20 10:29 [facility] [id number]) Physical Therapy Assessment Goals posture Short Term Goal (STG) Pt will show improvement in postural alignment by inc of VCT to 3/5. 09/25-2 STG Duration 09/22/20 Channel Cementer Outsole Machine Goal (LTG) Pt will show imrpoved postural alignment and staiblity in order to show improved ability to lift without inc pain by improvement of EFT to at least 3/5. strength Short Term Goal (STG) Pt will be indep w/HEP STG Duration achieved Correction Goal (LTG) Pt will improve LE strength to at least 4+/5 in all planes and LPM to at least 3/5 to show improved stability in order to inc pt's ability to participate in ADLs. 09/25 improved LTG Duration 10/21/20 activities Short Term Goal (STG) Pt will have improved range of motion of hip and lumbar spine in order to allow ease w /donning/doffing socks. 09/26 still some difficulty STG Duration 09/21/20 Correction Goal (LTG) Pt will return to being able to do at least 30 min of activity (biking or walking) without increased pain. 09/26-bikes to post office and back about 10-20 min LTG Duration 10/21/20 MANUEL Impairment 28/50 Short Term Goal (STG) Pt will improve MANUEL score to no more than 21/50 to show improved function. STG Duration 09/21/20 Correction Goal (LTG) Pt will improve MANUEL score to no more than 10/50 to show improved function. LTG Duration 10/21/20 Assessment Summary Assessment Pt did much better with all exercises todayw ith better form. With bridges /june he did require max cueing to slow down and control motion more w/core focus. Physical Therapy Plan Frequency and Duration Frequency of Treatment 2x/Week Duration of Treatment 2 months Plan of Care Start Date 08/21/20 Plan of Care End Date 10/21/20 Next Visit Focus/Plan Next Note Type Treatment Note Next Visit Plan Focus on posture. Cont to work on hip and core stability and manual thereapy to dec pain, review hip/back stretches to dec pain
--- NOTE | 2020-10-04 10:55 | PT.OTN ---
Current Diagnoses Low back pain (10/04/20) Difficulty in walking, not elsewhere classified (10/04/20) Abnormal posture (10/04/20) Weakness (10/04/20) Physical Therapy Treatment Note PT-OP-A Visit Information Start: 08/07/20 09:45 Freq: Status: Active Protocol: Document 10/04/20 09:53 [facility] (Rec: 10/04/20 10:45 [facility] [id number]) Out-Patient Physical Therapy Visit Information Visit Information Visit Type Treatment Note Visit Note 07/28 Visit Start Time 09:49 Visit Stop Time 10:29 Total Visit Minutes 40 Visit Number 13 Number of DAMPPROOFER Visits 0 PT-OP-B Current Condition Start: 08/07/20 09:45 Freq: Status: Active Protocol: Document 08/21/20 10:02 [facility] (Rec: 08/21/20 12:07 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 On admitted to ICU for anxiety, depression and overflow of fluids and CARDONA on Apr 14, 2019 and spent 5 days there then did rehab at [facility] for 18 days. 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 Terrell- audiovisual aids technician, now Dr. Oliveira, then Dr. Aguirre-Oncologolist, and another Oncologist in [facility]). He was told he messed up his bladder and kidneys. On August he was referred to IRG until a month ago, he transferred care here for PT. He is going to see Pain management MD on September 24. He saw an Ortho surgeon and did a MRI of back which saw compressed disc. L&I wants him to go to [facility] to see MD. Pt notes he is having to work with attornies d/t his prior employer denying him working there. Employer now is finally saying he did work there. Pt is supposed to see ortho in [facility] September 23 but they have cancelled this last min 8 times already. Pt reports post neck pain comes and goes and has pain into shoulders and B upper arms. he notes he has trouble in his back even bending over to get to get to socks/shoes. Pt reprots getting exhausted a lot. Back can get so painful with lifting that he can barely move after. Pt reprots MDs are unsure if he has prostate cancer but are treating him w/ meds. He is on a lot of meds for his heart. Pt reprots he is taking an injection. 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 He has been very depressed since this injury d/t dec activity tolerance. [place], and [place]. Prior Treatments and Tests PT-neck pain in the beginning then more recently back pain - only 2 sessions for back Treatment Goals Patient/Caregiver Goals Be able to put on socks/shoes easier PT-OP-C Subjective Start: 08/07/20 09:45 Freq: Status: Active Protocol: Document 10/04/20 09:53 [facility] (Rec: 10/04/20 10:45 [facility] [id number]) OP-PT Subjective Patient Comments Patient Comments Pt reports using his new ebike and went around [facility] 6x and did david goyal to [facility] also. Pt reprots he is noticing greater ease w/ going up stairs Patient Reported Progress Improving PT-OP-F Manual Assessment Start: 08/07/20 09:45 Freq: Status: Active Protocol: Document 08/21/20 10:02 [facility] (Rec: 08/21/20 12:07 [facility] [id number]) Manual Assessments Soft Tissue Assessment Soft Tissue Mobility Assessment tight B QL & ES Joint Mobility Assessment Joint Mobility Assessment L iliac crest higher PT-OP-G Mobility & Gait Start: 08/07/20 09:45 Freq: Status: Active Protocol: Document 08/21/20 10:02 [facility] (Rec: 08/21/20 12:07 [facility] [id number]) OP Mobility Evaluation Bed Mobility Rolling scooches to roll-notes some abdomenal pain OP Gait Assessment Comments Gait Comments fwd leaned and lat shifts, dec push off PT-OP-J Posture/Palpation/Skin Start: 08/07/20 09:45 Freq: Status: Active Protocol: Document 09/26/20 09:08 [facility] (Rec: 09/26/20 09:46 [facility] [id number]) Posture Evaluation Bronson Postural Classification System Vertebral Compression Test 2 Elbow Flexion Test 0 PT-OP-K Range of Motion Start: 08/07/20 09:45 Freq: Status: Active Protocol: Document 09/26/20 09:08 [facility] (Rec: 09/26/20 09:46 [facility] [id number]) Lumbar Spine Range of Motion Lumbar Spine Active Degrees Flexion 35 Extension 10 Rotation Left 43 Rotation Right 42 Lateral Flexion Left 12 Lateral Flexion Right 15 ROM Limitations Pain PT-OP-L Special Tests Start: 08/07/20 09:45 Freq: Status: Active Protocol: Document 08/21/20 10:02 [facility] (Rec: 08/21/20 12:07 [facility] [id number]) Special Tests Lumbar Spine Special Tests Slump Test Results positive B PT-OP-M Strength Start: 08/07/20 09:45 Freq: Status: Active Protocol: Document 09/26/20 09:08 [facility] (Rec: 09/26/20 09:46 [facility] [id number]) Hip Strength Hip Manual Muscle Testing Right Flexion (L2) 3+ Fair+ Extension (S1) 3 Fair Abduction 4- Good- External Rotation 4- Good- Internal Rotation 4 Good Left Flexion (L2) 3+ Fair+ Extension (S1) 3 Fair Abduction 4- Good- External Rotation 3+ Fair+ Internal Rotation 4 Good Knee Strength Knee Manual Muscle Testing Right Flexion (S2) 4- Good- Extension (L3) 4 Good Left Flexion (S2) 4- Good- Extension (L3) 4- Good- Ankle/Foot Strength Ankle and Foot Manual Muscle Testing Right Dorsiflexion (L4) 4+ Good+ Plantarflexion (S1) 4+ Good+ Comments PF tested seated Left Dorsiflexion (L4) 4 Good Plantarflexion (S1) 4+ Good+ PT-OP-Q Treatments Start: 08/07/20 09:45 Freq: Status: Active Protocol: Document 10/04/20 09:53 [facility] (Rec: 10/04/20 10:45 [facility] [id number]) Cardio Equipment Recumbent Stepper (Sci-Fit) Duration (Minutes) 8 Resistance 7 Seat Position 10 Gym Equipment Shuttle Balance red clips Comments fwd & side: WBOS & NBOS staggered stance fwd Therapeutic Exercises Standing Exercises wall squat Standing Exercise Name standing squat at rail w/chair behind Side bilateral Reps/Minutes 2x15 resisted walk Standing Exercise Name fwd/back Side bilateral Equipment Used red tband Reps/Minutes 2x20ft side step Side bilateral Equipment Used red tband Reps/Minutes 2x20ft Other Exercises cat/camel Reps/Minutes 15 ea jess pose Reps/Minutes 30 sec quadruped Other Exercise Name 1. alt arm lifts 2. alt hip ext Side bilateral Reps/Minutes 15 ea Comments max cueing for back position PT-OP-R Modalities Start: 08/07/20 09:45 Freq: Status: Active Protocol: Document 09/10/20 10:24 [facility] (Rec: 09/10/20 10:58 [facility] [id number]) Hot Pack/Cold Pack Treatment Hot Pack Location lumbar Patient Position Hooklying Treatment Duration (minutes) 15 PT-OP-T Assessment and Plan Start: 08/07/20 09:45 Freq: Status: Active Protocol: Document 10/04/20 09:53 [facility] (Rec: 10/04/20 10:45 [facility] [id number]) Physical Therapy Assessment Goals posture Short Term Goal (STG) Pt will show improvement in postural alignment by inc of VCT to 3/. 09/25-2/5 STG Duration 09/22/20 Fishing Floats Assembler Goal (LTG) Pt will show imrpoved postural alignment and staiblity in order to show improved ability to lift without inc pain by improvement of EFT to at least 3/5. strength Short Term Goal (STG) Pt will be indep w/HEP STG Duration achieved Usp Goal (LTG) Pt will improve LE strength to at least 4+/5 in all planes and LPM to at least 3/5 to show improved stability in order to inc pt's ability to participate in ADLs. 09/25 improved LTG Duration 10/21/20 activities Short Term Goal (STG) Pt will have improved range of motion of hip and lumbar spine in order to allow ease w /donning/doffing socks. 09/26 still some difficulty STG Duration 09/21/20 Usp Goal (LTG) Pt will return to being able to do at least 30 min of activity (biking or walking) without increased pain. 09/26-bikes to post office and back about 10-20 min LTG Duration 10/21/20 MANUEL Impairment 28/50 Short Term Goal (STG) Pt will improve MANUEL score to no more than 21/50 to show improved function. STG Duration 09/21/20 Fishing Floats Assembler Goal (LTG) Pt will improve MANUEL score to no more than 10/50 to show improved function. LTG Duration 10/21/20 Assessment Summary Assessment Pt did well exercises today with still cueing required for posture and form throughout especially in quarduped w/cat/ camel and hip ext Physical Therapy Plan Frequency and Duration Frequency of Treatment 2x/Week Duration of Treatment 2 months Plan of Care Start Date 08/21/20 Plan of Care End Date 10/21/20 Next Visit Focus/Plan Next Note Type Treatment Note Next Visit Plan Focus on posture. Cont to work on hip and core stability and manual thereapy to dec pain, review hip/back stretches to dec pain as needed
--- NOTE | 2020-10-08 11:55 | PT.OTN ---
Current Diagnoses Low back pain (10/08/20) Difficulty in walking, not elsewhere classified (10/08/20) Abnormal posture (10/08/20) Weakness (10/08/20) Physical Therapy Treatment Note PT-OP-A Visit Information Start: 08/07/20 09:45 Freq: Status: Active Protocol: Document 10/08/20 10:01 [facility] (Rec: 10/08/20 10:36 [facility] [id number]) Out-Patient Physical Therapy Visit Information Visit Information Visit Type Treatment Note Visit Note 08/27 Visit Start Time 09:48 Visit Stop Time 10:28 Total Visit Minutes 40 Visit Number 14 Number of WOOD AND HARDWARE OUTFITTER Visits 0 PT-OP-B Current Condition Start: 08/07/20 09:45 Freq: Status: Active Protocol: Document 08/21/20 10:02 [facility] (Rec: 08/21/20 12:07 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 On admitted to ICU for anxiety, depression and overflow of fluids and CARDONA on Apr 14, 2019 and spent 5 days there then did rehab at [facility] for 18 days. He has been seeing mult MDs since then (assistant administrator, Dr. Terrell- bank examiner, now Dr. Oliveira, then Dr. Aguirre-Oncologolist, and another Oncologist in [facility]). He was told he messed up his bladder and kidneys. On August he was referred to IR[facility] until a month ago, he transferred care here for PT. He is going to see Pain management MD on September 24. He saw an Ortho surgeon and did a MRI of back which saw compressed disc. L&I wants him to go to [facility] to see MD. Pt notes he is having to work with attornies d/t his prior employer denying him working there. Employer now is finally saying he did work there. Pt is supposed to see ortho in [facility] September 23 but they have cancelled this last min 8 times already. Pt reports post neck pain comes and goes and has pain into shoulders and B upper arms. he notes he has trouble in his back even bending over to get to get to socks/shoes. Pt reprots getting exhausted a lot. Back can get so painful with lifting that he can barely move after. Pt reprots MDs are unsure if he has prostate cancer but are treating him w/ meds. He is on a lot of meds for his heart. Pt reprots he is taking an injection. 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 He has been very depressed since this injury d/t dec activity tolerance. [place], [place]. Prior Treatments and Tests PT-neck pain in the beginning then more recently back pain - only 2 sessions for back Treatment Goals Patient/Caregiver Goals Be able to put on socks/shoes easier PT-OP-C Subjective Start: 08/07/20 09:45 Freq: Status: Active Protocol: Document 10/08/20 10:01 [facility] (Rec: 10/08/20 10:36 [facility] [id number]) OP-PT Subjective Patient Comments Patient Comments Pt reports back is doing better and he is having less pain. Has been walking aobut 100 yards AM and PM. Notes a couple days ago, he drank a glass of wine w/sausage and then went on a bike ride and felt fine until a ljittle after he got home, then felt lightheaded and had to lay down and was SOB Patient Reported Progress Improving PT-OP-F Manual Assessment Start: 08/07/20 09:45 Freq: Status: Active Protocol: Document 08/21/20 10:02 [facility] (Rec: 08/21/20 12:07 [facility] [id number]) Manual Assessments Soft Tissue Assessment Soft Tissue Mobility Assessment tight B QL & ES Joint Mobility Assessment Joint Mobility Assessment L iliac crest higher PT-OP-G Mobility & Gait Start: 08/07/20 09:45 Freq: Status: Active Protocol: Document 08/21/20 10:02 [facility] (Rec: 08/21/20 12:07 [facility] [id number]) OP Mobility Evaluation Bed Mobility Rolling scooches to roll-notes some abdomenal pain OP Gait Assessment Comments Gait Comments fwd leaned and lat shifts, dec push off PT-OP-J Posture/Palpation/Skin Start: 08/07/20 09:45 Freq: Status: Active Protocol: Document 09/26/20 09:08 [facility] (Rec: 09/26/20 09:46 [facility] [id number]) Posture Evaluation [facility] Postural Classification System Vertebral Compression Test 2 Elbow Flexion Test 0 PT-OP-K Range of Motion Start: 08/07/20 09:45 Freq: Status: Active Protocol: Document 09/26/20 09:08 [facility] (Rec: 09/26/20 09:46 [facility] [id number]) Lumbar Spine Range of Motion Lumbar Spine Active Degrees Flexion 35 Extension 10 Rotation Left 43 Rotation Right 42 Lateral Flexion Left 12 Lateral Flexion Right 15 ROM Limitations Pain PT-OP-L Special Tests Start: 08/07/20 09:45 Freq: Status: Active Protocol: Document 08/21/20 10:02 [facility] (Rec: 08/21/20 12:07 [facility] [id number]) Special Tests Lumbar Spine Special Tests Slump Test Results positive B PT-OP-M Strength Start: 08/07/20 09:45 Freq: Status: Active Protocol: Document 09/26/20 09:08 [facility] (Rec: 09/26/20 09:46 [facility] [id number]) Hip Strength Hip Manual Muscle Testing Right Flexion (L2) 3+ Fair+ Extension (S1) 3 Fair Abduction 4- Good- External Rotation 4- Good- Internal Rotation 4 Good Left Flexion (L2) 3+ Fair+ Extension (S1) 3 Fair Abduction 4- Good- External Rotation 3+ Fair+ Internal Rotation 4 Good Knee Strength Knee Manual Muscle Testing Right Flexion (S2) 4- Good- Extension (L3) 4 Good Left Flexion (S2) 4- Good- Extension (L3) 4- Good- Ankle/Foot Strength Ankle and Foot Manual Muscle Testing Right Dorsiflexion (L4) 4+ Good+ Plantarflexion (S1) 4+ Good+ Comments PF tested seated Left Dorsiflexion (L4) 4 Good Plantarflexion (S1) 4+ Good+ PT-OP-Q Treatments Start: 08/07/20 09:45 Freq: Status: Active Protocol: Document 10/08/20 10:01 [facility] (Rec: 10/08/20 10:36 [facility] [id number]) Gym Equipment Shuttle Balance red clips Comments fwd & side: WBOS & NBOS staggered stance fwd Therapeutic Exercises Standing Exercises lunge Side bilateral Equipment Used rail Reps/Minutes 10 wall squat Standing Exercise Name standing squat at rail w/chair behind Side bilateral Reps/Minutes 2x15 resisted walk Standing Exercise Name fwd/back Side bilateral Equipment Used red tband Reps/Minutes 2x20ft side step Side bilateral Equipment Used red tband Reps/Minutes 2x20ft Other Exercises cat/camel Reps/Minutes 20 ea Comments max cueing jess pose Reps/Minutes 30 sec quadruped Other Exercise Name 1. alt arm lifts 2. alt hip ext Side bilateral Reps/Minutes 15 ea Comments max cueing for back position Manual Therapy Treatment Soft Tissue Mobilization lumbar Body Location ES, QL, lumbosacral fascia Mobilization Type Myofascial Release,Rolling, Strumming Intensity/Depth Moderate Body Position Prone Self-Care/Home Management Treatment Education Other Education edu to discuss w/MD re: episode a couple days ago and to call MD today PT-OP-R Modalities Start: 08/07/20 09:45 Freq: Status: Active Protocol: Document 09/10/20 10:24 [facility] (Rec: 09/10/20 10:58 [facility] [id number]) Hot Pack/Cold Pack Treatment Hot Pack Location lumbar Patient Position Hooklying Treatment Duration (minutes) 15 PT-OP-T Assessment and Plan Start: 08/07/20 09:45 Freq: Status: Active Protocol: Document 10/08/20 10:01 [facility] (Rec: 10/08/20 10:36 [facility] [id number]) Physical Therapy Assessment Goals posture Short Term Goal (STG) Pt will show improvement in postural alignment by inc of VCT to 3/5. 09/25-25 STG Duration 09/22/20 Mcfp Goal (LTG) Pt will show imrpoved postural alignment and staiblity in order to show improved ability to lift without inc pain by improvement of EFT to at least 3/5. strength Short Term Goal (STG) Pt will be indep w/HEP STG Duration achieved Mcfp Goal (LTG) Pt will improve LE strength to at least 4+/5 in all planes and LPM to at least 3/5 to show improved stability in order to inc pt's ability to participate in ADLs. 6/8 improved LTG Duration 10/21/20 activities Short Term Goal (STG) Pt will have improved range of motion of hip and lumbar spine in order to allow ease w /donning/doffing socks. 09/26 still some difficulty STG Duration 09/21/20 Chemical Technician Goal (LTG) Pt will return to being able to do at least 30 min of activity (biking or walking) without increased pain. 09/26-bikes to post office and back about 10-20 min LTG Duration 10/21/20 MANUEL Impairment 28/50 Short Term Goal (STG) Pt will improve MANUEL score to no more than 21/50 to show improved function. STG Duration 09/21/20 Mcfp Goal (LTG) Pt will improve MANUEL score to no more than 10/50 to show improved function. LTG Duration 10/21/20 Assessment Summary Assessment Pt did well with standing exercises but still does require significant cueing for squats for glute engagement and required a loft of tactile cueing w/start of lunges tdoay. He did still require max cueing for quadruped exercises also. Physical Therapy Plan Frequency and Duration Frequency of Treatment 2x/Week Duration of Treatment 2 months Plan of Care Start Date 08/21/20 Plan of Care End Date 10/21/20 Next Visit Focus/Plan Next Note Type Treatment Note Next Visit Plan Focus on posture. Cont to work on hip and core stability and manual thereapy to dec pain, review hip/back stretches to dec pain as needed
--- NOTE | 2020-10-11 10:31 | PT.OTN ---
Current Diagnoses Low back pain (10/11/20) Difficulty in walking, not elsewhere classified (10/11/20) Abnormal posture (10/11/20) Weakness (10/11/20) Physical Therapy Treatment Note PT-OP-A Visit Information Start: 08/07/20 09:45 Freq: Status: Active Protocol: Document 10/11/20 09:52 [facility] (Rec: 10/11/20 10:31 [facility] [id number]) Out-Patient Physical Therapy Visit Information Visit Information Visit Type Treatment Note Visit Note 09/27 Visit Start Time 09:50 Visit Stop Time 10:29 Total Visit Minutes 39 Visit Number 15 Number of STEEL FITTER Visits 0 PT-OP-B Current Condition Start: 08/07/20 09:45 Freq: Status: Active Protocol: Document 08/21/20 10:02 [facility] (Rec: 08/21/20 12:07 [facility] [id number]) Current Condition History of Current Condition Onset Date May 30, 2017 Current Complaints LBP History of Current Condition 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 On admitted to ICU for anxiety, depression and overflow of fluids and CARDONA on Apr 14, 2019 and spent 5 days there then did rehab at [facility] for 18 days. He has been seeing mult MDs since then (orange picking supervisor, Dr. Terrell- proof passer, now Dr. Oliveira, then Dr. Aguirre-Oncologolist, and another Oncologist in [facility]). He was told he messed up his bladder and kidneys. On August he was referred to IRG until a month ago, he transferred care here for PT. He is going to see Pain management MD on September 24. He saw an Ortho surgeon and did a MRI of back which saw compressed disc. L&I wants him to go to [facility] to see MD. Pt notes he is having to work with attornies d/t his prior employer denying him working there. Employer now is finally saying he did work there. Pt is supposed to see ortho in [facility] September 23 but they have cancelled this last min 8 times already. Pt reports post neck pain comes and goes and has pain into shoulders and B upper arms. he notes he has trouble in his back even bending over to get to get to socks/shoes. Pt reprots getting exhausted a lot. Back can get so painful with lifting that he can barely move after. Pt reprots MDs are unsure if he has prostate cancer but are treating him w/ meds. He is on a lot of meds for his heart. Pt reprots he is taking an injection. 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 He has been very depressed since this injury d/t dec activity tolerance. [place], and [place]. Prior Treatments and Tests PT-neck pain in the beginning then more recently back pain - only 2 sessions for back Treatment Goals Patient/Caregiver Goals Be able to put on socks/shoes easier PT-OP-C Subjective Start: 08/07/20 09:45 Freq: Status: Active Protocol: Document 10/11/20 09:52 [facility] (Rec: 10/11/20 10:31 [facility] [id number]) OP-PT Subjective Patient Comments Patient Comments Pt reports he did a 2 mile walk this AM and back was sore after that. He did a bike ride after Patient Reported Progress Improving PT-OP-F Manual Assessment Start: 08/07/20 09:45 Freq: Status: Active Protocol: Document 08/21/20 10:02 [facility] (Rec: 08/21/20 12:07 [facility] [id number]) Manual Assessments Soft Tissue Assessment Soft Tissue Mobility Assessment tight B QL & ES Joint Mobility Assessment Joint Mobility Assessment L iliac crest higher PT-OP-G Mobility & Gait Start: 08/07/20 09:45 Freq: Status: Active Protocol: Document 08/21/20 10:02 [facility] (Rec: 08/21/20 12:07 [facility] [id number]) OP Mobility Evaluation Bed Mobility Rolling scooches to roll-notes some abdomenal pain OP Gait Assessment Comments Gait Comments fwd leaned and lat shifts, dec push off PT-OP-J Posture/Palpation/Skin Start: 08/07/20 09:45 Freq: Status: Active Protocol: Document 09/26/20 09:08 [facility] (Rec: 09/26/20 09:46 [facility] [id number]) Posture Evaluation [facility] Postural Classification System Vertebral Compression Test 2 Elbow Flexion Test 0 PT-OP-K Range of Motion Start: 08/07/20 09:45 Freq: Status: Active Protocol: Document 09/26/20 09:08 [facility] (Rec: 09/26/20 09:46 [facility] [id number]) Lumbar Spine Range of Motion Lumbar Spine Active Degrees Flexion 35 Extension 10 Rotation Left 43 Rotation Right 42 Lateral Flexion Left 12 Lateral Flexion Right 15 ROM Limitations Pain PT-OP-L Special Tests Start: 08/07/20 09:45 Freq: Status: Active Protocol: Document 08/21/20 10:02 [facility] (Rec: 08/21/20 12:07 [facility] [id number]) Special Tests Lumbar Spine Special Tests Slump Test Results positive B PT-OP-M Strength Start: 08/07/20 09:45 Freq: Status: Active Protocol: Document 09/26/20 09:08 [facility] (Rec: 09/26/20 09:46 [facility] [id number]) Hip Strength Hip Manual Muscle Testing Right Flexion (L2) 3+ Fair+ Extension (S1) 3 Fair Abduction 4- Good- External Rotation 4- Good- Internal Rotation 4 Good Left Flexion (L2) 3+ Fair+ Extension (S1) 3 Fair Abduction 4- Good- External Rotation 3+ Fair+ Internal Rotation 4 Good Knee Strength Knee Manual Muscle Testing Right Flexion (S2) 4- Good- Extension (L3) 4 Good Left Flexion (S2) 4- Good- Extension (L3) 4- Good- Ankle/Foot Strength Ankle and Foot Manual Muscle Testing Right Dorsiflexion (L4) 4+ Good+ Plantarflexion (S1) 4+ Good+ Comments PF tested seated Left Dorsiflexion (L4) 4 Good Plantarflexion (S1) 4+ Good+ PT-OP-Q Treatments Start: 08/07/20 09:45 Freq: Status: Active Protocol: Document 10/11/20 09:52 [facility] (Rec: 10/11/20 10:31 [facility] [id number]) Therapeutic Exercises Supine Exercises pirformis stretch Side bilateral Reps/Minutes 30 sec HS Supine Exercise Name Active quad engagement for HS stretch Side bilateral Reps/Minutes 15sec x2 Sitting Exercises stretch Sitting Exercise Name figure 4 Side bilateral Reps/Minutes 30 sec Standing Exercises hip flexor stretch Side bilateral Reps/Minutes 30 sec lunge Standing Exercise Name mx cueing Side bilateral Equipment Used rail Reps/Minutes 2x20ft Comments walking wall squat Standing Exercise Name standing squat at rail w/chair behind Side bilateral Reps/Minutes 2x15 resisted walk Standing Exercise Name fwd/back Side bilateral Equipment Used teal tband Reps/Minutes 2x20ft side step Side bilateral Equipment Used teal tband Reps/Minutes 2x20ft Other Exercises cat/camel Reps/Minutes 20 ea Comments max cueing jess pose Reps/Minutes 30 sec quadruped Other Exercise Name 1. alt arm lifts 2. alt hip ext Side bilateral Reps/Minutes 15 ea Comments max cueing for back position Manual Therapy Treatment Soft Tissue Mobilization lumbar Body Location ES, QL, lumbosacral fascia Mobilization Type Myofascial Release,Rolling, Strumming Intensity/Depth Moderate Body Position Sidelying PT-OP-R Modalities Start: 08/07/20 09:45 Freq: Status: Active Protocol: Document 09/10/20 10:24 [facility] (Rec: 09/10/20 10:58 [facility] [id number]) Hot Pack/Cold Pack Treatment Hot Pack Location lumbar Patient Position Hooklying Treatment Duration (minutes) 15 PT-OP-T Assessment and Plan Start: 08/07/20 09:45 Freq: Status: Active Protocol: Document 10/11/20 09:52 [facility] (Rec: 10/11/20 10:31 [facility] [id number]) Physical Therapy Assessment Goals posture Short Term Goal (STG) Pt will show improvement in postural alignment by inc of VCT to 3/. 09/25-25 STG Duration 09/22/20 Senior Living Goal (LTG) Pt will show imrpoved postural alignment and staiblity in order to show improved ability to lift without inc pain by improvement of EFT to at least 3/5. strength Short Term Goal (STG) Pt will be indep w/HEP STG Duration achieved Communications Assistant Goal (LTG) Pt will improve LE strength to at least 4+/5 in all planes and LPM to at least 3/5 to show improved stability in order to inc pt's ability to participate in ADLs. 09/25 improved LTG Duration 10/21/20 activities Short Term Goal (STG) Pt will have improved range of motion of hip and lumbar spine in order to allow ease w /donning/doffing socks. 09/26 still some difficulty STG Duration 09/21/20 Senior Living Goal (LTG) Pt will return to being able to do at least 30 min of activity (biking or walking) without increased pain. 09/26-bikes to post office and back about 10-20 min LTG Duration 10/21/20 MANUEL Impairment 28/50 Short Term Goal (STG) Pt will improve MANUEL score to no more than 21/50 to show improved function. STG Duration 09/21/20 Senior Living Goal (LTG) Pt will improve MANUEL score to no more than 10/50 to show improved function. LTG Duration 10/21/20 Assessment Summary Assessment Pt still requires cueing especially in quadruped and with some of the hip stretches for good form. He is still requiring max cueing to sit back down if he feels lightheaded when he stands back up. Physical Therapy Plan Frequency and Duration Frequency of Treatment 2x/Week Duration of Treatment 2 months Plan of Care Start Date 08/21/20 Plan of Care End Date 10/21/20 Next Visit Focus/Plan Next Note Type Progress Note Next Visit Plan Focus on posture. Cont to work on hip and core stability and manual thereapy to dec pain, review hip/back stretches to dec pain as needed
--- NOTE | 2020-10-17 16:43 | PT.OTN ---
Current Diagnoses Low back pain (10/17/20) Difficulty in walking, not elsewhere classified (10/17/20) Abnormal posture (10/17/20) Weakness (10/17/20) Physical Therapy Treatment Note PT-OP-A Visit Information Start: 08/07/20 09:45 Freq: Status: Active Protocol: Document 10/17/20 16:05 [facility] (Rec: 10/17/20 16:42 [facility] [id number]) Out-Patient Physical Therapy Visit Information Visit Information Visit Type Progress Note Visit Note 04/29 Visit Start Time 16:01 Visit Stop Time 16:39 Total Visit Minutes 38 Visit Number 16 Number of FLASHER ADJUSTER Visits 0 PT-OP-B Current Condition Start: 08/07/20 09:45 Freq: Status: Active Protocol: Document 08/21/20 10:02 [facility] (Rec: 08/21/20 12:07 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 On admitted to ICU for anxiety, depression and overflow of fluids and CARDONA on Apr 14, 2019 and spent 5 days there then did rehab at [facility] for 18 days. He has been seeing mult MDs since then (timers inspector, Dr. Terrell- production recorder, now Dr. Oliveira, then Dr. Aguirre-Oncologolist, and another Oncologist in [facility]). He was told he messed up his bladder and kidneys. On August he was referred to [facility] until a month ago, he transferred care here for PT. He is going to see Pain management MD on September 24. He saw an Ortho surgeon and did a MRI of back which saw compressed disc. L&I wants him to go to [facility] to see MD. Pt notes he is having to work with attornies d/t his prior employer denying him working there. Employer now is finally saying he did work there. Pt is supposed to see ortho in [facility] September 23 but they have cancelled this last min 8 times already. Pt reports post neck pain comes and goes and has pain into shoulders and B upper arms. he notes he has trouble in his back even bending over to get to get to socks/shoes. Pt reprots getting exhausted a lot. Back can get so painful with lifting that he can barely move after. Pt reprots MDs are unsure if he has prostate cancer but are treating him w/ meds. He is on a lot of meds for his heart. Pt reprots he is taking an injection. 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 He has been very depressed since this injury d/t dec activity tolerance. [place], [place]. Prior Treatments and Tests PT-neck pain in the beginning then more recently back pain - only 2 sessions for back Treatment Goals Patient/Caregiver Goals Be able to put on socks/shoes easier PT-OP-C Subjective Start: 08/07/20 09:45 Freq: Status: Active Protocol: Document 10/17/20 16:05 [facility] (Rec: 10/17/20 16:42 [facility] [id number]) OP-PT Subjective Patient Comments Patient Comments Pt reports back is better with all his biking. Reports walking 1 hour on the property . reports feels back pain first thing in the AM Patient Reported Progress Improving PT-OP-F Manual Assessment Start: 08/07/20 09:45 Freq: Status: Active Protocol: Document 08/21/20 10:02 [facility] (Rec: 08/21/20 12:07 [facility] [id number]) Manual Assessments Soft Tissue Assessment Soft Tissue Mobility Assessment tight B QL & ES Joint Mobility Assessment Joint Mobility Assessment L iliac crest higher PT-OP-G Mobility & Gait Start: 08/07/20 09:45 Freq: Status: Active Protocol: Document 08/21/20 10:02 [facility] (Rec: 08/21/20 12:07 [facility] [id number]) OP Mobility Evaluation Bed Mobility Rolling scooches to roll-notes some abdomenal pain OP Gait Assessment Comments Gait Comments fwd leaned and lat shifts, dec push off PT-OP-J Posture/Palpation/Skin Start: 08/07/20 09:45 Freq: Status: Active Protocol: Document 10/17/20 16:05 [facility] (Rec: 10/17/20 16:42 [facility] [id number]) Posture Evaluation Bronson Postural Classification System Vertebral Compression Test 3 Elbow Flexion Test 2 Lumbar Protective Mechanism Left AP 2 Lumbar Protective Mechanism Right AP 2 Lumbar Protective Mechanism Left PA 2 Lumbar Protective Mechanism Right PA 0 PT-OP-K Range of Motion Start: 08/07/20 09:45 Freq: Status: Active Protocol: Document 09/26/20 09:08 [facility] (Rec: 09/26/20 09:46 [facility] [id number]) Lumbar Spine Range of Motion Lumbar Spine Active Degrees Flexion 35 Extension 10 Rotation Left 43 Rotation Right 42 Lateral Flexion Left 12 Lateral Flexion Right 15 ROM Limitations Pain PT-OP-L Special Tests Start: 08/07/20 09:45 Freq: Status: Active Protocol: Document 08/21/20 10:02 [facility] (Rec: 08/21/20 12:07 [facility] [id number]) Special Tests Lumbar Spine Special Tests Slump Test Results positive B PT-OP-M Strength Start: 08/07/20 09:45 Freq: Status: Active Protocol: Document 10/17/20 16:05 [facility] (Rec: 10/17/20 16:42 [facility] [id number]) Hip Strength Hip Manual Muscle Testing Right Flexion (L2) 4 Good Extension (S1) 3+ Fair+ Abduction 4 Good Adduction 4 Good External Rotation 4+ Good+ Internal Rotation 4+ Good+ Left Flexion (L2) 4+ Good+ Extension (S1) 3+ Fair+ Abduction 4 Good Adduction 4 Good External Rotation 4- Good- Internal Rotation 4 Good Knee Strength Knee Manual Muscle Testing Right Flexion (S2) 4+ Good+ Extension (L3) 4+ Good+ Left Flexion (S2) 4+ Good+ Extension (L3) 4+ Good+ Ankle/Foot Strength Ankle and Foot Manual Muscle Testing Right Dorsiflexion (L4) 5 Normal Plantarflexion (S1) 5 Normal Comments 20 heel raises Left Dorsiflexion (L4) 5 Normal Plantarflexion (S1) 4 Good Comments 12 raises but has more difficulty than R PT-OP-Q Treatments Start: 08/07/20 09:45 Freq: Status: Active Protocol: Document 10/17/20 16:05 [facility] (Rec: 10/17/20 16:42 [facility] [id number]) Therapeutic Exercises Supine Exercises flex Supine Exercise Name 1. SKTC w/opp quad set 2. DKTC Side bilateral Reps/Minutes 30 sec ea bridge Supine Exercise Name w/alt marches Side bilateral Reps/Minutes 15 Comments max cueing for pelvis position & sequence Standing Exercises resisted walk Standing Exercise Name fwd/back Side bilateral Equipment Used blue tband Reps/Minutes 2x20ft side step Side bilateral Equipment Used blue tband Reps/Minutes 2x20ft Other Exercises cat/camel Reps/Minutes 20 ea Comments mod cueing jess pose Reps/Minutes 1 min x2 quadruped Other Exercise Name 1. alt arm lifts 2. alt hip ext Side bilateral Reps/Minutes 15 ea Comments max cueing for back position PT-OP-R Modalities Start: 08/07/20 09:45 Freq: Status: Active Protocol: Document 09/10/20 10:24 [facility] (Rec: 09/10/20 10:58 [facility] [id number]) Hot Pack/Cold Pack Treatment Hot Pack Location lumbar Patient Position Hooklying Treatment Duration (minutes) 15 PT-OP-T Assessment and Plan Start: 08/07/20 09:45 Freq: Status: Active Protocol: Document 10/17/20 16:05 [facility] (Rec: 10/17/20 16:42 [facility] [id number]) Physical Therapy Assessment Goals posture Short Term Goal (STG) Pt will show improvement in postural alignment by inc of VCT to 3/5. 09/25-2/5 STG Duration achieved Entertainment Lawyer Goal (LTG) Pt will show imrpoved postural alignment and staiblity in order to show improved ability to lift without inc pain by improvement of EFT to at least 3/5. LTG Duration 12/17/20 strength Short Term Goal (STG) Pt will be indep w/HEP STG Duration achieved [facility] Goal (LTG) Pt will improve LE strength to at least 4+/5 in all planes and LPM to at least 3/5 to show improved stability in order to inc pt's ability to participate in ADLs. 09/25 improved 10/17-improving LTG Duration 12/17/20 activities Short Term Goal (STG) Pt will have improved range of motion of hip and lumbar spine in order to allow ease w /donning/doffing socks. 09/26 still some difficulty 10/17 no change STG Duration 11/16/20 Entertainment Lawyer Goal (LTG) Pt will return to being able to do at least 30 min of activity (biking or walking) without increased pain. 09/26-bikes to post office and back about 10-20 min LTG Duration achieved MANUEL Impairment 28/50 Short Term Goal (STG) Pt will improve MANEUL score to no more than 21/50 to show improved function. STG Duration achieved to 15/50 [facility] Goal (LTG) Pt will improve MANUEL score to no more than 10/50 to show improved function. LTG Duration 12/17/20 Assessment Summary Assessment Pt is making good progress with therapy at this time with good improvements with his strength and postural stability. He has been doing more activities without inc pain. Pt to cont PT to cont to work towards dec LBP and inc ability to function. Physical Therapy Plan Frequency and Duration Frequency of Treatment 1-2x/Week Duration of Treatment 2 months Plan of Care Start Date 10/17/20 Plan of Care End Date 12/17/20 Therapeutic Interventions Therapeutic Interventions Aquatic Therapy,Balance Training,Gait Training,Home Exercise Program,Manual Therapy,Neuromuscular Re- education,Patient/Caregiver Education,Self-Care/Home Management,Soft Tissue Mobilization,Taping, Therapeutic Activities, Therapeutic Exercises Modalities Cold Pack/Ice Massage,Hot Packs Next Visit Focus/Plan Next Note Type Treatment Note Next Visit Plan focus on glute strengthening for dec back pain
--- NOTE | 2020-10-17 16:43 | PT.OPPOC ---
Physical, Occupational & Speech Therapy At [facility] Current Diagnoses Low back pain (10/17/20) Difficulty in walking, not elsewhere classified (10/17/20) Abnormal posture (10/17/20) Weakness (10/17/20) Visit Care Team Role Provider Type Avila Oliveira MD Attending Provider Physician Primary Care Provider Referring Provider Specialty: Internal Medicine Address: [address] [place] [address], [id number] Email: [email or web address] Plan Of Care PT-OP-T Assessment and Plan Start: 08/07/20 09:45 Freq: Status: Active Protocol: Document 10/17/20 16:05 [facility] (Rec: 10/17/20 16:42 [facility] [id number]) Physical Therapy Assessment Goals posture Short Term Goal (STG) Pt will show improvement in postural alignment by inc of VCT to 3/5. 09/25-2/5 STG Duration achieved Print Production Coordinator Goal (LTG) Pt will show imrpoved postural alignment and staiblity in order to show improved ability to lift without inc pain by improvement of EFT to at least 3/5. LTG Duration 12/17/20 strength Short Term Goal (STG) Pt will be indep w/HEP STG Duration achieved Snf Goal (LTG) Pt will improve LE strength to at least 4+/5 in all planes and LPM to at least 3/5 to show improved stability in order to inc pt's ability to participate in ADLs. 09/25 improved 10/17-improving LTG Duration 12/17/20 activities Short Term Goal (STG) Pt will have improved range of motion of hip and lumbar spine in order to allow ease w /donning/doffing socks. 09/26 still some difficulty 10/17 no change STG Duration 11/16/20 Print Production Coordinator Goal (LTG) Pt will return to being able to do at least 30 min of activity (biking or walking) without increased pain. 09/26-bikes to post office and back about 10-20 min LTG Duration achieved MANUEL Impairment 28/50 Short Term Goal (STG) Pt will improve MANUEL score to no more than 21/50 to show improved function. STG Duration achieved to 15/50 Print Production Coordinator Goal (LTG) Pt will improve MANUEL score to no more than 10/50 to show improved function. LTG Duration 12/17/20 Assessment Summary Assessment Pt is making good progress with therapy at this time with good improvements with his strength and postural stability. He has been doing more activities without inc pain. Pt to cont PT to cont to work towards dec LBP and inc ability to function. Physical Therapy Plan Frequency and Duration Frequency of Treatment 1-2x/Week Duration of Treatment 2 months Plan of Care Start Date 10/17/20 Plan of Care End Date 12/17/20 Therapeutic Interventions Therapeutic Interventions Aquatic Therapy,Balance Training,Gait Training,Home Exercise Program,Manual Therapy,Neuromuscular Re- education,Patient/Caregiver Education,Self-Care/Home Management,Soft Tissue Mobilization,Taping, Therapeutic Activities, Therapeutic Exercises Modalities Cold Pack/Ice Massage,Hot Packs Next Visit Focus/Plan Next Note Type Treatment Note Next Visit Plan focus on glute strengthening for dec back pain Plan of Care Dates Plan of Care Start Date 10/17/20 Plan of Care End Date 12/17/20 Electronically Signed by: Jazz Powell, PT 10/17/20 [id number] Please Sign and Return: I have reviewed this Plan of Care and certify that the skilled therapy services above are required to meet the patient?s needs. Physician Signature Date Printed Name and Credentials Clinical Instructor Signature Printed Name and Credentials
--- NOTE | 2020-10-19 14:30 | PT.OTN ---
Current Diagnoses Low back pain (10/19/20) Difficulty in walking, not elsewhere classified (10/19/20) Abnormal posture (10/19/20) Weakness (10/19/20) Physical Therapy Treatment Note PT-OP-A Visit Information Start: 08/07/20 09:45 Freq: Status: Active Protocol: Document 10/19/20 13:49 [facility] (Rec: 10/19/20 14:29 [facility] [id number]) Out-Patient Physical Therapy Visit Information Visit Information Visit Type Treatment Note Visit Note 05/30 Visit Start Time 13:45 Visit Stop Time 14:25 Total Visit Minutes 40 Visit Number 17 Number of FRAMING MILL OPERATOR Visits 1 PT-OP-B Current Condition Start: 08/07/20 09:45 Freq: Status: Active Protocol: Document 08/21/20 10:02 [facility] (Rec: 08/21/20 12:07 [facility] [id number]) Current Condition History of Current Condition Onset Date May 30, 2017 Current Complaints LBP History of Current Condition 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 On admitted to ICU for anxiety, depression and overflow of fluids and CARDONA on Apr 14, 2019 and spent 5 days there then did rehab at [facility] for 18 days. He has been seeing mult MDs since then (pharmaceutical service representative, Dr. Terrell- die cast supervisor, now Dr. Oliveira, then Dr. Aguirre-Oncologolist, and another Oncologist in [facility]). He was told he messed up his bladder and kidneys. On August he was referred to IRG until a month ago, he transferred care here for PT. He is going to see Pain management MD on September 24. He saw an Ortho surgeon and did a MRI of back which saw compressed disc. L&I wants him to go to [facility] to see MD. Pt notes he is having to work with attornies d/t his prior employer denying him working there. Employer now is finally saying he did work there. Pt is supposed to see ortho in [facility] September 23 but they have cancelled this last min 8 times already. Pt reports post neck pain comes and goes and has pain into shoulders and B upper arms. he notes he has trouble in his back even bending over to get to get to socks/shoes. Pt reprots getting exhausted a lot. Back can get so painful with lifting that he can barely move after. Pt reprots MDs are unsure if he has prostate cancer but are treating him w/ meds. He is on a lot of meds for his heart. Pt reprots he is taking an injection. 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 He has been very depressed since this injury d/t dec activity tolerance. [place], and [place]. Prior Treatments and Tests PT-neck pain in the beginning then more recently back pain - only 2 sessions for back Treatment Goals Patient/Caregiver Goals Be able to put on socks/shoes easier PT-OP-C Subjective Start: 08/07/20 09:45 Freq: Status: Active Protocol: Document 10/19/20 13:49 [facility] (Rec: 10/19/20 14:29 [facility] [id number]) OP-PT Subjective Patient Comments Patient Comments Pt has nothing new to report. PT-OP-F Manual Assessment Start: 08/07/20 09:45 Freq: Status: Active Protocol: Document 08/21/20 10:02 [facility] (Rec: 08/21/20 12:07 [facility] [id number]) Manual Assessments Soft Tissue Assessment Soft Tissue Mobility Assessment tight B QL & ES Joint Mobility Assessment Joint Mobility Assessment L iliac crest higher PT-OP-G Mobility & Gait Start: 08/07/20 09:45 Freq: Status: Active Protocol: Document 08/21/20 10:02 [facility] (Rec: 08/21/20 12:07 [facility] [id number]) OP Mobility Evaluation Bed Mobility Rolling scooches to roll-notes some abdomenal pain OP Gait Assessment Comments Gait Comments fwd leaned and lat shifts, dec push off PT-OP-J Posture/Palpation/Skin Start: 08/07/20 09:45 Freq: Status: Active Protocol: Document 10/17/20 16:05 [facility] (Rec: 10/17/20 16:42 [facility] [id number]) Posture Evaluation Bronson Postural Classification System Vertebral Compression Test 3 Elbow Flexion Test 2 Lumbar Protective Mechanism Left AP 2 Lumbar Protective Mechanism Right AP 2 Lumbar Protective Mechanism Left PA 2 Lumbar Protective Mechanism Right PA 0 PT-OP-K Range of Motion Start: 08/07/20 09:45 Freq: Status: Active Protocol: Document 09/26/20 09:08 [facility] (Rec: 09/26/20 09:46 [facility] [id number]) Lumbar Spine Range of Motion Lumbar Spine Active Degrees Flexion 35 Extension 10 Rotation Left 43 Rotation Right 42 Lateral Flexion Left 12 Lateral Flexion Right 15 ROM Limitations Pain PT-OP-L Special Tests Start: 08/07/20 09:45 Freq: Status: Active Protocol: Document 08/21/20 10:02 [facility] (Rec: 08/21/20 12:07 [facility] [id number]) Special Tests Lumbar Spine Special Tests Slump Test Results positive B PT-OP-M Strength Start: 08/07/20 09:45 Freq: Status: Active Protocol: Document 10/17/20 16:05 [facility] (Rec: 10/17/20 16:42 [facility] [id number]) Hip Strength Hip Manual Muscle Testing Right Flexion (L2) 4 Good Extension (S1) 3+ Fair+ Abduction 4 Good Adduction 4 Good External Rotation 4+ Good+ Internal Rotation 4+ Good+ Left Flexion (L2) 4+ Good+ Extension (S1) 3+ Fair+ Abduction 4 Good Adduction 4 Good External Rotation 4- Good- Internal Rotation 4 Good Knee Strength Knee Manual Muscle Testing Right Flexion (S2) 4+ Good+ Extension (L3) 4+ Good+ Left Flexion (S2) 4+ Good+ Extension (L3) 4+ Good+ Ankle/Foot Strength Ankle and Foot Manual Muscle Testing Right Dorsiflexion (L4) 5 Normal Plantarflexion (S1) 5 Normal Comments 20 heel raises Left Dorsiflexion (L4) 5 Normal Plantarflexion (S1) 4 Good Comments 12 raises but has more difficulty than R PT-OP-Q Treatments Start: 08/07/20 09:45 Freq: Status: Active Protocol: Document 10/19/20 13:49 [facility] (Rec: 10/19/20 14:29 [facility] [id number]) Therapeutic Exercises Sidelying Exercises clamshell Side bilateral Reps/Minutes 10 Standing Exercises lunge Standing Exercise Name mx cueing Side bilateral Equipment Used rail Reps/Minutes 2x20ft Comments walking with mirror for feedback hip ext Side bilateral Reps/Minutes 2x10 Comments focusing on keeping R hip from ER resisted walk Standing Exercise Name fwd/back Side bilateral Equipment Used blue tband Reps/Minutes 2x20ft side step Side bilateral Equipment Used blue tband Reps/Minutes 2x20ft Other Exercises cat/camel Reps/Minutes 20 ea Comments mod cueing jess pose Reps/Minutes 1 min x2 quadruped Other Exercise Name 1. alt arm lifts 2. alt hip ext Side bilateral Reps/Minutes 15 ea Comments max cueing for back position PT-OP-R Modalities Start: 08/07/20 09:45 Freq: Status: Active Protocol: Document 09/10/20 10:24 [facility] (Rec: 09/10/20 10:58 [facility] [id number]) Hot Pack/Cold Pack Treatment Hot Pack Location lumbar Patient Position Hooklying Treatment Duration (minutes) 15 PT-OP-T Assessment and Plan Start: 08/07/20 09:45 Freq: Status: Active Protocol: Document 10/19/20 13:49 [facility] (Rec: 10/19/20 14:29 [facility] [id number]) Physical Therapy Assessment Goals posture Short Term Goal (STG) Pt will show improvement in postural alignment by inc of VCT to 3/5. 09/25-2 STG Duration achieved Custodial Goal (LTG) Pt will show imrpoved postural alignment and staiblity in order to show improved ability to lift without inc pain by improvement of EFT to at least 3/5. LTG Duration 12/17/20 strength Short Term Goal (STG) Pt will be indep w/HEP STG Duration achieved Custodial Goal (LTG) Pt will improve LE strength to at least 4+/5 in all planes and LPM to at least 3/5 to show improved stability in order to inc pt's ability to participate in ADLs. 09/25 improved 10/17-improving LTG Duration 12/17/20 activities Short Term Goal (STG) Pt will have improved range of motion of hip and lumbar spine in order to allow ease w /donning/doffing socks. 09/26 still some difficulty 10/17 no change STG Duration 11/16/20 Custodial Goal (LTG) Pt will return to being able to do at least 30 min of activity (biking or walking) without increased pain. 09/26-bikes to post office and back about 10-20 min LTG Duration achieved MANUEL Impairment 28/50 Short Term Goal (STG) Pt will improve MANUEL score to no more than 21/50 to show improved function. STG Duration achieved to 15/50 Custodial Goal (LTG) Pt will improve MANUEL score to no more than 10/50 to show improved function. LTG Duration 12/17/20 Assessment Summary Assessment Pt has R knee valgus causing him to drop R hip during lunges and gait. Worked on fwd steps and lunges in mirror keeping hips level and feet straight. He needs frequent cues for posture today, likely due to pt focusing on foot/ knee position during session. Pt was able to keep yard stick balanced on back for postural feedback during quadruped exercise. His back pain is still worse in the AM but he states, it always feels better after PT. Physical Therapy Plan Frequency and Duration Frequency of Treatment 1-2x/Week Duration of Treatment 2 months Plan of Care Start Date 10/17/20 Plan of Care End Date 12/17/20 Therapeutic Interventions Therapeutic Interventions Aquatic Therapy,Balance Training,Gait Training,Home Exercise Program,Manual Therapy,Neuromuscular Re- education,Patient/Caregiver Education,Self-Care/Home Management,Soft Tissue Mobilization,Taping, Therapeutic Activities, Therapeutic Exercises Modalities Cold Pack/Ice Massage,Hot Packs Next Visit Focus/Plan Next Note Type Treatment Note Next Visit Plan focus on glute strengthening for dec back pain
--- NOTE | 2020-10-30 09:46 | PT.OTN ---
Current Diagnoses Low back pain (10/30/20) Difficulty in walking, not elsewhere classified (10/30/20) Abnormal posture (10/30/20) Weakness (10/30/20) Physical Therapy Treatment Note PT-OP-A Visit Information Start: 08/07/20 09:45 Freq: Status: Active Protocol: Document 10/30/20 09:08 [facility] (Rec: 10/30/20 09:46 [facility] [id number]) Out-Patient Physical Therapy Visit Information Visit Information Visit Type Treatment Note Visit Start Time 09:04 Visit Stop Time 09:43 Total Visit Minutes 39 Visit Number 18 Number of OPTICAL MECHANIC Visits 0 PT-OP-B Current Condition Start: 08/07/20 09:45 Freq: Status: Active Protocol: Document 08/21/20 10:02 [facility] (Rec: 08/21/20 12:07 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 On admitted to ICU for anxiety, depression and overflow of fluids and CARDONA on Apr 14, 2019 and spent 5 days there then did rehab at [facility] for 18 days. He has been seeing mult MDs since then (fiberglass roller, Dr. Terrell- cotton picker, now Dr. Oliveira, then Dr. Aguirre-Oncologolist, and another Oncologist in [facility]). He was told he messed up his bladder and kidneys. On August he was referred to [facility] until a month ago, he transferred care here for PT. He is going to see Pain management MD on September 24. He saw an Ortho surgeon and did a MRI of back which saw compressed disc. L&I wants him to go to [facility] to see MD. Pt notes he is having to work with attornies d/t his prior employer denying him working there. Employer now is finally saying he did work there. Pt is supposed to see ortho in [facility] September 23 but they have cancelled this last min 8 times already. Pt reports post neck pain comes and goes and has pain into shoulders and B upper arms. he notes he has trouble in his back even bending over to get to get to socks/shoes. Pt reprots getting exhausted a lot. Back can get so painful with lifting that he can barely move after. Pt reprots MDs are unsure if he has prostate cancer but are treating him w/ meds. He is on a lot of meds for his heart. Pt reprots he is taking an injection. 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 He has been very depressed since this injury d/t dec activity tolerance. [place], [place]. Prior Treatments and Tests PT-neck pain in the beginning then more recently back pain - only 2 sessions for back Treatment Goals Patient/Caregiver Goals Be able to put on socks/shoes easier PT-OP-C Subjective Start: 08/07/20 09:45 Freq: Status: Active Protocol: Document 10/30/20 09:08 [facility] (Rec: 10/30/20 09:46 [facility] [id number]) OP-PT Subjective Patient Comments Patient Comments Pt reports walking 4 laps on the property and back is just sore in the AM then gets better as he walks. NOtes back mostly bothers him just to bend to get on socks and shoes Patient Reported Progress Improving PT-OP-F Manual Assessment Start: 08/07/20 09:45 Freq: Status: Active Protocol: Document 08/21/20 10:02 [facility] (Rec: 08/21/20 12:07 [facility] [id number]) Manual Assessments Soft Tissue Assessment Soft Tissue Mobility Assessment tight B QL & ES Joint Mobility Assessment Joint Mobility Assessment L iliac crest higher PT-OP-G Mobility & Gait Start: 08/07/20 09:45 Freq: Status: Active Protocol: Document 08/21/20 10:02 [facility] (Rec: 08/21/20 12:07 [facility] [id number]) OP Mobility Evaluation Bed Mobility Rolling scooches to roll-notes some abdomenal pain OP Gait Assessment Comments Gait Comments fwd leaned and lat shifts, dec push off PT-OP-J Posture/Palpation/Skin Start: 08/07/20 09:45 Freq: Status: Active Protocol: Document 10/17/20 16:05 [facility] (Rec: 10/17/20 16:42 [facility] [id number]) Posture Evaluation Bronson Postural Classification System Vertebral Compression Test 3 Elbow Flexion Test 2 Lumbar Protective Mechanism Left AP 2 Lumbar Protective Mechanism Right AP 2 Lumbar Protective Mechanism Left PA 2 Lumbar Protective Mechanism Right PA 0 PT-OP-K Range of Motion Start: 08/07/20 09:45 Freq: Status: Active Protocol: Document 09/26/20 09:08 [facility] (Rec: 09/26/20 09:46 [facility] [id number]) Lumbar Spine Range of Motion Lumbar Spine Active Degrees Flexion 35 Extension 10 Rotation Left 43 Rotation Right 42 Lateral Flexion Left 12 Lateral Flexion Right 15 ROM Limitations Pain PT-OP-L Special Tests Start: 08/07/20 09:45 Freq: Status: Active Protocol: Document 08/21/20 10:02 [facility] (Rec: 08/21/20 12:07 [facility] [id number]) Special Tests Lumbar Spine Special Tests Slump Test Results positive B PT-OP-M Strength Start: 08/07/20 09:45 Freq: Status: Active Protocol: Document 10/17/20 16:05 [facility] (Rec: 10/17/20 16:42 [facility] [id number]) Hip Strength Hip Manual Muscle Testing Right Flexion (L2) 4 Good Extension (S1) 3+ Fair+ Abduction 4 Good Adduction 4 Good External Rotation 4+ Good+ Internal Rotation 4+ Good+ Left Flexion (L2) 4+ Good+ Extension (S1) 3+ Fair+ Abduction 4 Good Adduction 4 Good External Rotation 4- Good- Internal Rotation 4 Good Knee Strength Knee Manual Muscle Testing Right Flexion (S2) 4+ Good+ Extension (L3) 4+ Good+ Left Flexion (S2) 4+ Good+ Extension (L3) 4+ Good+ Ankle/Foot Strength Ankle and Foot Manual Muscle Testing Right Dorsiflexion (L4) 5 Normal Plantarflexion (S1) 5 Normal Comments 20 heel raises Left Dorsiflexion (L4) 5 Normal Plantarflexion (S1) 4 Good Comments 12 raises but has more difficulty than R PT-OP-Q Treatments Start: 08/07/20 09:45 Freq: Status: Active Protocol: Document 10/30/20 09:08 [facility] (Rec: 10/30/20 09:46 [facility] [id number]) Gym Equipment Therapeutic Ball seated Ball Size/Color 65cm Body Position seated Reps/Duration 10 ea Comments 1. pelvic [place] 2. march alt B 3. kicks B 4. fwd flex stretch X30 SEC supine Ball Size/Color 65 cm Body Position Supine Reps/Duration 10 ea Comments 1. bridge w/feet on ball 2. LTR B Therapeutic Exercises Supine Exercises foam roll Supine Exercise Name 1.shoulder flex, abd, Habd 2. alt march Side bilateral Reps/Minutes 10 ea pirformis stretch Supine Exercise Name 1.figure 4 2. knee opposite chest 3. SKTC Side bilateral Reps/Minutes 30 sec Other Exercises cat/camel Reps/Minutes 15 ea Comments yoseph cueing jess pose Reps/Minutes 1 min x2 quadruped Other Exercise Name 1. alt arm lifts 2. alt hip ext Side bilateral Reps/Minutes 15 ea Comments foam roll on back Manual Therapy Treatment Soft Tissue Mobilization lumbar Body Location ES Mobilization Type Rolling Intensity/Depth Moderate Comments w/cat/camel & rock fwd/back in quad PT-OP-R Modalities Start: 08/07/20 09:45 Freq: Status: Active Protocol: Document 09/10/20 10:24 [facility] (Rec: 09/10/20 10:58 [facility] [id number]) Hot Pack/Cold Pack Treatment Hot Pack Location lumbar Patient Position Hooklying Treatment Duration (minutes) 15 PT-OP-T Assessment and Plan Start: 08/07/20 09:45 Freq: Status: Active Protocol: Document 10/30/20 09:08 [facility] (Rec: 10/30/20 09:46 [facility] [id number]) Physical Therapy Assessment Goals posture Short Term Goal (STG) Pt will show improvement in postural alignment by inc of VCT to 3/5. 09/25-2/5 STG Duration achieved Mcfp Goal (LTG) Pt will show imrpoved postural alignment and staiblity in order to show improved ability to lift without inc pain by improvement of EFT to at least 3/5. LTG Duration 12/17/20 strength Short Term Goal (STG) Pt will be indep w/HEP STG Duration achieved Butadiene Convertor Operator Goal (LTG) Pt will improve LE strength to at least 4+/5 in all planes and LPM to at least 3/5 to show improved stability in order to inc pt's ability to participate in ADLs. 09/25 improved 10/17-improving LTG Duration 12/17/20 activities Short Term Goal (STG) Pt will have improved range of motion of hip and lumbar spine in order to allow ease w /donning/doffing socks. 09/26 still some difficulty 10/17 no change STG Duration 11/16/20 Mcfp Goal (LTG) Pt will return to being able to do at least 30 min of activity (biking or walking) without increased pain. 09/26-bikes to post office and back about 10-20 min LTG Duration achieved MANUEL Impairment 28/50 Short Term Goal (STG) Pt will improve MANUEL score to no more than 21/50 to show improved function. STG Duration achieved to 15/50 Mcfp Goal (LTG) Pt will improve MANUEL score to no more than 10/50 to show improved function. LTG Duration 12/17/20 Assessment Summary Assessment Pt had significant improvmeent with quadruped exercises with much less cueing required today. He is improving with core stability w/exercises Physical Therapy Plan Next Visit Focus/Plan Next Note Type Treatment Note Next Visit Plan work on spinal flexion mobility and hip mobility to improve ability to don socks and shoes
--- NOTE | 2020-11-02 16:01 | PT.OTN ---
Current Diagnoses Low back pain (11/02/20) Difficulty in walking, not elsewhere classified (11/02/20) Abnormal posture (11/02/20) Weakness (11/02/20) Physical Therapy Treatment Note PT-OP-A Visit Information Start: 08/07/20 09:45 Freq: Status: Active Protocol: Document 11/02/20 15:19 MA (Rec: 11/02/20 16:01 MA [id number]) Out-Patient Physical Therapy Visit Information Visit Information Visit Type Treatment Note Visit Start Time 15:15 Visit Stop Time 15:55 Total Visit Minutes 40 Visit Number 19 Number of FUNERAL HOME ASSISTANT Visits 1 PT-OP-B Current Condition Start: 08/07/20 09:45 Freq: Status: Active Protocol: Document 08/21/20 10:02 [facility] (Rec: 08/21/20 12:07 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 On admitted to ICU for anxiety, depression and overflow of fluids and CARDONA on Apr 14, 2019 and spent 5 days there then did rehab at [facility] [place] [facility] for 18 days. He has been seeing mult MDs since then (jig fitter, Dr. Terrell- diamond assorter, now Dr. Oliveira, then Dr. Aguirre-Oncologolist, and another Oncologist in [facility]). He was told he messed up his bladder and kidneys. On August he was referred to IRG until a month ago, he transferred care here for PT. He is going to see Pain management MD on September 24. He saw an Ortho surgeon and did a MRI of back which saw compressed disc. L&I wants him to go to [facility] to see MD. Pt notes he is having to work with attornies d/t his prior employer denying him working there. Employer now is finally saying he did work there. Pt is supposed to see ortho in [facility] September 23 but they have cancelled this last min 8 times already. Pt reports post neck pain comes and goes and has pain into shoulders and B upper arms. he notes he has trouble in his back even bending over to get to get to socks/shoes. Pt reprots getting exhausted a lot. Back can get so painful with lifting that he can barely move after. Pt reprots MDs are unsure if he has prostate cancer but are treating him w/ meds. He is on a lot of meds for his heart. Pt reprots he is taking an injection. 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 He has been very depressed since this injury d/t dec activity tolerance. [place], and [place]. Prior Treatments and Tests PT-neck pain in the beginning then more recently back pain - only 2 sessions for back Treatment Goals Patient/Caregiver Goals Be able to put on socks/shoes easier PT-OP-C Subjective Start: 08/07/20 09:45 Freq: Status: Active Protocol: Document 11/02/20 15:19 MA (Rec: 11/02/20 16:01 MA [id number]) OP-PT Subjective Patient Comments Patient Comments Pt states my back is only hurting in the AM still. He had procedure yesterday and was not supposed to drive for 24 hours PT-OP-F Manual Assessment Start: 08/07/20 09:45 Freq: Status: Active Protocol: Document 08/21/20 10:02 [facility] (Rec: 08/21/20 12:07 [facility] [id number]) Manual Assessments Soft Tissue Assessment Soft Tissue Mobility Assessment tight B QL & ES Joint Mobility Assessment Joint Mobility Assessment L iliac crest higher PT-OP-G Mobility & Gait Start: 08/07/20 09:45 Freq: Status: Active Protocol: Document 08/21/20 10:02 [facility] (Rec: 08/21/20 12:07 [facility] [id number]) OP Mobility Evaluation Bed Mobility Rolling scooches to roll-notes some abdomenal pain OP Gait Assessment Comments Gait Comments fwd leaned and lat shifts, dec push off PT-OP-J Posture/Palpation/Skin Start: 08/07/20 09:45 Freq: Status: Active Protocol: Document 10/17/20 16:05 [facility] (Rec: 10/17/20 16:42 [facility] [id number]) Posture Evaluation Bronson Postural Classification System Vertebral Compression Test 3 Elbow Flexion Test 2 Lumbar Protective Mechanism Left AP 2 Lumbar Protective Mechanism Right AP 2 Lumbar Protective Mechanism Left PA 2 Lumbar Protective Mechanism Right PA 0 PT-OP-K Range of Motion Start: 08/07/20 09:45 Freq: Status: Active Protocol: Document 09/26/20 09:08 [facility] (Rec: 09/26/20 09:46 [facility] [id number]) Lumbar Spine Range of Motion Lumbar Spine Active Degrees Flexion 35 Extension 10 Rotation Left 43 Rotation Right 42 Lateral Flexion Left 12 Lateral Flexion Right 15 ROM Limitations Pain PT-OP-L Special Tests Start: 08/07/20 09:45 Freq: Status: Active Protocol: Document 08/21/20 10:02 [facility] (Rec: 08/21/20 12:07 [facility] [id number]) Special Tests Lumbar Spine Special Tests Slump Test Results positive B PT-OP-M Strength Start: 08/07/20 09:45 Freq: Status: Active Protocol: Document 10/17/20 16:05 [facility] (Rec: 10/17/20 16:42 [facility] [id number]) Hip Strength Hip Manual Muscle Testing Right Flexion (L2) 4 Good Extension (S1) 3+ Fair+ Abduction 4 Good Adduction 4 Good External Rotation 4+ Good+ Internal Rotation 4+ Good+ Left Flexion (L2) 4+ Good+ Extension (S1) 3+ Fair+ Abduction 4 Good Adduction 4 Good External Rotation 4- Good- Internal Rotation 4 Good Knee Strength Knee Manual Muscle Testing Right Flexion (S2) 4+ Good+ Extension (L3) 4+ Good+ Left Flexion (S2) 4+ Good+ Extension (L3) 4+ Good+ Ankle/Foot Strength Ankle and Foot Manual Muscle Testing Right Dorsiflexion (L4) 5 Normal Plantarflexion (S1) 5 Normal Comments 20 heel raises Left Dorsiflexion (L4) 5 Normal Plantarflexion (S1) 4 Good Comments 12 raises but has more difficulty than R PT-OP-Q Treatments Start: 08/07/20 09:45 Freq: Status: Active Protocol: Document 11/02/20 15:19 MA (Rec: 11/02/20 16:01 MA [id number]) Gym Equipment Therapeutic Ball seated Ball Size/Color 65cm Body Position seated Reps/Duration 10 ea Comments 1. pelvic poarch 2. june alt B 3. kicks B 4. fwd flex stretch X30 SEC supine Ball Size/Color 65 cm Body Position Supine Reps/Duration 10 ea Comments 1. bridge w/feet on ball 2. LTR B Therapeutic Exercises Supine Exercises foam roll Supine Exercise Name 1.shoulder flex, abd, Habd 2. alt march Side bilateral Reps/Minutes 10 ea Other Exercises cat/camel Reps/Minutes 15 ea Comments yoseph cueing jess pose Reps/Minutes 1 min x2 quadruped Other Exercise Name 1. alt arm lifts 2. alt hip ext Side bilateral Reps/Minutes 15 ea Comments foam roll on back PT-OP-R Modalities Start: 08/07/20 09:45 Freq: Status: Active Protocol: Document 09/10/20 10:24 MA (Rec: 09/10/20 10:58 MA [id number]) Hot Pack/Cold Pack Treatment Hot Pack Location lumbar Patient Position Hooklying Treatment Duration (minutes) 15 PT-OP-T Assessment and Plan Start: 08/07/20 09:45 Freq: Status: Active Protocol: Document 11/02/20 15:19 MA (Rec: 11/02/20 16:01 MA [id number]) Physical Therapy Assessment Goals posture Short Term Goal (STG) Pt will show improvement in postural alignment by inc of VCT to 3/5. 09/25-2/ STG Duration achieved Fdc Goal (LTG) Pt will show imrpoved postural alignment and staiblity in order to show improved ability to lift without inc pain by improvement of EFT to at least 3/5. LTG Duration 12/17/20 strength Short Term Goal (STG) Pt will be indep w/HEP STG Duration achieved Fdc Goal (LTG) Pt will improve LE strength to at least 4+/5 in all planes and LPM to at least 3/5 to show improved stability in order to inc pt's ability to participate in ADLs. 09/25 improved 10/17-improving LTG Duration 12/17/20 activities Short Term Goal (STG) Pt will have improved range of motion of hip and lumbar spine in order to allow ease w /donning/doffing socks. 09/26 still some difficulty 10/17 no change STG Duration 11/16/20 All Source Collection Manager Goal (LTG) Pt will return to being able to do at least 30 min of activity (biking or walking) without increased pain. 09/26-bikes to post office and back about 10-20 min LTG Duration achieved MANUEL Impairment 28/50 Short Term Goal (STG) Pt will improve MANUEL score to no more than 21/50 to show improved function. STG Duration achieved to 15/50 All Source Collection Manager Goal (LTG) Pt will improve MANUEL score to no more than 10/50 to show improved function. LTG Duration 12/17/20 Assessment Summary Assessment Requires heavy cues for pelvic mobility during circles on theraball and cat/cow exercise . He is improving his core work during quadruped but requires cues during shd flexion while supine on foam roller to avoid extending spine. Physical Therapy Plan Frequency and Duration Frequency of Treatment 1-2x/Week Duration of Treatment 2 months Plan of Care Start Date 10/17/20 Plan of Care End Date 12/17/20 Therapeutic Interventions Therapeutic Interventions Aquatic Therapy,Balance Training,Gait Training,Home Exercise Program,Manual Therapy,Neuromuscular Re- education,Patient/Caregiver Education,Self-Care/Home Management,Soft Tissue Mobilization,Taping, Therapeutic Activities, Therapeutic Exercises Modalities Cold Pack/Ice Massage,Hot Packs Next Visit Focus/Plan Next Note Type Treatment Note Next Visit Plan work on spinal flexion mobility and hip mobility to improve ability to don socks and shoes
--- NOTE | 2020-11-05 10:24 | PT.OTN ---
Current Diagnoses Low back pain (11/05/20) Difficulty in walking, not elsewhere classified (11/05/20) Abnormal posture (11/05/20) Weakness (11/05/20) Physical Therapy Treatment Note PT-OP-A Visit Information Start: 08/07/20 09:45 Freq: Status: Active Protocol: Document 11/05/20 09:45 [facility] (Rec: 11/05/20 10:24 [facility] [id number]) Out-Patient Physical Therapy Visit Information Visit Information Visit Type Treatment Note Visit Note 08/27 Visit Start Time 09:45 Visit Stop Time 10:25 Total Visit Minutes 40 Visit Number 20 Number of TABLET TESTER Visits 0 PT-OP-B Current Condition Start: 08/07/20 09:45 Freq: Status: Active Protocol: Document 08/21/20 10:02 [facility] (Rec: 08/21/20 12:07 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 On admitted to ICU for anxiety, depression and overflow of fluids and CARDONA on Apr 14, 2019 and spent 5 days there then did rehab at [facility] for 18 days. 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 Terrell- business continuity management director, now Dr. Oliveira, then Dr. Aguirre-Oncologolist, and another Oncologist in [facility]). He was told he messed up his bladder and kidneys. On August he was referred to IRG until a month ago, he transferred care here for PT. He is going to see Pain management MD on September 24. He saw an Ortho surgeon and did a MRI of back which saw compressed disc. L&I wants him to go to [facility] to see MD. Pt notes he is having to work with attornies d/t his prior employer denying him working there. Employer now is finally saying he did work there. Pt is supposed to see ortho in [facility] September 23 but they have cancelled this last min 8 times already. Pt reports post neck pain comes and goes and has pain into shoulders and B upper arms. he notes he has trouble in his back even bending over to get to get to socks/shoes. Pt reprots getting exhausted a lot. Back can get so painful with lifting that he can barely move after. Pt reprots MDs are unsure if he has prostate cancer but are treating him w/ meds. He is on a lot of meds for his heart. Pt reprots he is taking an injection. 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 He has been very depressed since this injury d/t dec activity tolerance. [place], and [place] the [place] now [place]. Prior Treatments and Tests PT-neck pain in the beginning then more recently back pain - only 2 sessions for back Treatment Goals Patient/Caregiver Goals Be able to put on socks/shoes easier PT-OP-C Subjective Start: 08/07/20 09:45 Freq: Status: Active Protocol: Document 11/05/20 09:45 [facility] (Rec: 11/05/20 10:24 [facility] [id number]) OP-PT Subjective Patient Comments Patient Comments Pt reports he has been doing a lot more walking and bike rides. He notes he is sore today unsure if its from the procedure or from all his activity. PT-OP-F Manual Assessment Start: 08/07/20 09:45 Freq: Status: Active Protocol: Document 08/21/20 10:02 [facility] (Rec: 08/21/20 12:07 [facility] [id number]) Manual Assessments Soft Tissue Assessment Soft Tissue Mobility Assessment tight B QL & ES Joint Mobility Assessment Joint Mobility Assessment L iliac crest higher PT-OP-G Mobility & Gait Start: 08/07/20 09:45 Freq: Status: Active Protocol: Document 08/21/20 10:02 [facility] (Rec: 08/21/20 12:07 [facility] [id number]) OP Mobility Evaluation Bed Mobility Rolling scooches to roll-notes some abdomenal pain OP Gait Assessment Comments Gait Comments fwd leaned and lat shifts, dec push off PT-OP-J Posture/Palpation/Skin Start: 08/07/20 09:45 Freq: Status: Active Protocol: Document 10/17/20 16:05 [facility] (Rec: 10/17/20 16:42 [facility] [id number]) Posture Evaluation Bronson Postural Classification System Vertebral Compression Test 3 Elbow Flexion Test 2 Lumbar Protective Mechanism Left AP 2 Lumbar Protective Mechanism Right AP 2 Lumbar Protective Mechanism Left PA 2 Lumbar Protective Mechanism Right PA 0 PT-OP-K Range of Motion Start: 08/07/20 09:45 Freq: Status: Active Protocol: Document 09/26/20 09:08 [facility] (Rec: 09/26/20 09:46 [facility] [id number]) Lumbar Spine Range of Motion Lumbar Spine Active Degrees Flexion 35 Extension 10 Rotation Left 43 Rotation Right 42 Lateral Flexion Left 12 Lateral Flexion Right 15 ROM Limitations Pain PT-OP-L Special Tests Start: 08/07/20 09:45 Freq: Status: Active Protocol: Document 08/21/20 10:02 [facility] (Rec: 08/21/20 12:07 [facility] [id number]) Special Tests Lumbar Spine Special Tests Slump Test Results positive B PT-OP-M Strength Start: 08/07/20 09:45 Freq: Status: Active Protocol: Document 10/17/20 16:05 [facility] (Rec: 10/17/20 16:42 [facility] [id number]) Hip Strength Hip Manual Muscle Testing Right Flexion (L2) 4 Good Extension (S1) 3+ Fair+ Abduction 4 Good Adduction 4 Good External Rotation 4+ Good+ Internal Rotation 4+ Good+ Left Flexion (L2) 4+ Good+ Extension (S1) 3+ Fair+ Abduction 4 Good Adduction 4 Good External Rotation 4- Good- Internal Rotation 4 Good Knee Strength Knee Manual Muscle Testing Right Flexion (S2) 4+ Good+ Extension (L3) 4+ Good+ Left Flexion (S2) 4+ Good+ Extension (L3) 4+ Good+ Ankle/Foot Strength Ankle and Foot Manual Muscle Testing Right Dorsiflexion (L4) 5 Normal Plantarflexion (S1) 5 Normal Comments 20 heel raises Left Dorsiflexion (L4) 5 Normal Plantarflexion (S1) 4 Good Comments 12 raises but has more difficulty than R PT-OP-Q Treatments Start: 08/07/20 09:45 Freq: Status: Active Protocol: Document 11/05/20 09:45 [facility] (Rec: 11/05/20 10:24 [facility] [id number]) Gym Equipment Therapeutic Ball seated Ball Size/Color 65cm Body Position seated Reps/Duration 10 ea (1-4) Comments 1. pelvic [place] 2. march alt B 3. kicks B 4. lean back V sit 5. fwd flex stretch 2X30 SEC supine Ball Size/Color 65 cm Body Position Supine Reps/Duration 10 ea Comments 1. bridge w/feet on ball 2. LTR B Therapeutic Exercises Supine Exercises foam roll Supine Exercise Name 1.shoulder flex, abd, Habd 2. alt march Side bilateral Reps/Minutes 10 ea pirformis stretch Supine Exercise Name 1.figure 4 2. knee opposite chest 3. SKTC 4. DKTC Side bilateral Reps/Minutes 30 sec Prone Exercises hip ext Prone Exercise Name alt Side bilateral Reps/Minutes 15 Sitting Exercises stretch Sitting Exercise Name butterfly stretch Side bilateral Reps/Minutes 30 sec Other Exercises cat/camel Reps/Minutes 15 ea Comments yoseph cueing jess pose Reps/Minutes 1 min x2 quadruped Other Exercise Name 1. alt arm lifts 2. alt hip ext Side bilateral Reps/Minutes 15 ea Comments foam roll on back PT-OP-R Modalities Start: 08/07/20 09:45 Freq: Status: Active Protocol: Document 09/10/20 10:24 MA (Rec: 09/10/20 10:58 MA [id number]) Hot Pack/Cold Pack Treatment Hot Pack Location lumbar Patient Position Hooklying Treatment Duration (minutes) 15 PT-OP-T Assessment and Plan Start: 08/07/20 09:45 Freq: Status: Active Protocol: Document 11/05/20 09:45 LR (Rec: 11/05/20 10:24 [facility] [id number]) Physical Therapy Assessment Goals posture Short Term Goal (STG) Pt will show improvement in postural alignment by inc of VCT to 3/5. 09/25-2/5 STG Duration achieved Jail Goal (LTG) Pt will show imrpoved postural alignment and staiblity in order to show improved ability to lift without inc pain by improvement of EFT to at least 3/5. LTG Duration 12/17/20 strength Short Term Goal (STG) Pt will be indep w/HEP STG Duration achieved Rice Farmworker Goal (LTG) Pt will improve LE strength to at least 4+/5 in all planes and LPM to at least 3/5 to show improved stability in order to inc pt's ability to participate in ADLs. 09/25 improved 10/17-improving LTG Duration 12/17/20 activities Short Term Goal (STG) Pt will have improved range of motion of hip and lumbar spine in order to allow ease w /donning/doffing socks. 09/26 still some difficulty 10/17 no change STG Duration 11/16/20 Jail Goal (LTG) Pt will return to being able to do at least 30 min of activity (biking or walking) without increased pain. 09/26-bikes to post office and back about 10-20 min LTG Duration achieved MANUEL Impairment 28/50 Short Term Goal (STG) Pt will improve MANUEL score to no more than 21/50 to show improved function. STG Duration achieved to 15/50 Jail Goal (LTG) Pt will improve MANUEL score to no more than 10/50 to show improved function. LTG Duration 12/17/20 Assessment Summary Assessment Pt still required max ceuing on ball and foam roll for form . He cont to improve on quadruped as long as roll is on his back to give him cues. Physical Therapy Plan Frequency and Duration Frequency of Treatment 1-2x/Week Duration of Treatment 2 months Plan of Care Start Date 10/17/20 Plan of Care End Date 12/17/20 Next Visit Focus/Plan Next Note Type Treatment Note Next Visit Plan work on spinal flexion mobility and hip mobility to improve ability to don socks and shoes
--- NOTE | 2020-11-08 10:36 | PT.OTN ---
Current Diagnoses Low back pain (11/08/20) Difficulty in walking, not elsewhere classified (11/08/20) Abnormal posture (11/08/20) Weakness (11/08/20) Physical Therapy Treatment Note PT-OP-A Visit Information Start: 08/07/20 09:45 Freq: Status: Active Protocol: Document 11/08/20 10:07 [facility] (Rec: 11/08/20 10:35 [facility] [id number]) Out-Patient Physical Therapy Visit Information Visit Information Visit Type Treatment Note Visit Note 09/27 Visit Start Time 09:50 Visit Stop Time 10:29 Total Visit Minutes 39 Visit Number 21 Number of ASSISTED SALES REPRESENTATIVE Visits 0 PT-OP-B Current Condition Start: 08/07/20 09:45 Freq: Status: Active Protocol: Document 08/21/20 10:02 [facility] (Rec: 08/21/20 12:07 [facility] [id number]) Current Condition History of Current Condition Onset Date May 30, 2017 Current Complaints LBP History of Current Condition Pt reports 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 On admitted to ICU for anxiety, depression and overflow of fluids and CARDONA on Apr 14, 2019 and spent 5 days there then did rehab at [facility] for 18 days. He has been seeing mult MDs since then (pole lift operator, Dr. Terrell- manager community, now Dr. Oliveira, then Dr. Aguirre-Oncologolist, and another Oncologist in [facility]). He was told he messed up his bladder and kidneys. On August he was referred to [facility] until a month ago, he transferred care here for PT. He is going to see Pain management MD on September 24. He saw an Ortho surgeon and did a MRI of back which saw compressed disc. L&I wants him to go to [facility] to see MD. Pt notes he is having to work with attornies d/t his prior employer denying him working there. Employer now is finally saying he did work there. Pt is supposed to see ortho in [facility] September 23 but they have cancelled this last min 8 times already. Pt reports post neck pain comes and goes and has pain into shoulders and B upper arms. he notes he has trouble in his back even bending over to get to get to socks/shoes. Pt reprots getting exhausted a lot. Back can get so painful with lifting that he can barely move after. Pt reprots MDs are unsure if he has prostate cancer but are treating him w/ meds. He is on a lot of meds for his heart. Pt reprots he is taking an injection. 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 He has been very depressed since this injury d/t dec activity tolerance. [place], [place]. Prior Treatments and Tests PT-neck pain in the beginning then more recently back pain - only 2 sessions for back Treatment Goals Patient/Caregiver Goals Be able to put on socks/shoes easier PT-OP-C Subjective Start: 08/07/20 09:45 Freq: Status: Active Protocol: Document 11/08/20 10:07 [facility] (Rec: 11/08/20 10:35 [facility] [id number]) OP-PT Subjective Patient Comments Patient Comments Pt still concerned about difficulty getting to socks and shoes PT-OP-F Manual Assessment Start: 08/07/20 09:45 Freq: Status: Active Protocol: Document 08/21/20 10:02 [facility] (Rec: 08/21/20 12:07 [facility] [id number]) Manual Assessments Soft Tissue Assessment Soft Tissue Mobility Assessment tight B QL & ES Joint Mobility Assessment Joint Mobility Assessment L iliac crest higher PT-OP-G Mobility & Gait Start: 08/07/20 09:45 Freq: Status: Active Protocol: Document 08/21/20 10:02 [facility] (Rec: 08/21/20 12:07 [facility] [id number]) OP Mobility Evaluation Bed Mobility Rolling scooches to roll-notes some abdomenal pain OP Gait Assessment Comments Gait Comments fwd leaned and lat shifts, dec push off PT-OP-J Posture/Palpation/Skin Start: 08/07/20 09:45 Freq: Status: Active Protocol: Document 10/17/20 16:05 [facility] (Rec: 10/17/20 16:42 [facility] [id number]) Posture Evaluation Bronson Postural Classification System Vertebral Compression Test 3 Elbow Flexion Test 2 Lumbar Protective Mechanism Left AP 2 Lumbar Protective Mechanism Right AP 2 Lumbar Protective Mechanism Left PA 2 Lumbar Protective Mechanism Right PA 0 PT-OP-K Range of Motion Start: 08/07/20 09:45 Freq: Status: Active Protocol: Document 09/26/20 09:08 [facility] (Rec: 09/26/20 09:46 [facility] [id number]) Lumbar Spine Range of Motion Lumbar Spine Active Degrees Flexion 35 Extension 10 Rotation Left 43 Rotation Right 42 Lateral Flexion Left 12 Lateral Flexion Right 15 ROM Limitations Pain PT-OP-L Special Tests Start: 08/07/20 09:45 Freq: Status: Active Protocol: Document 08/21/20 10:02 [facility] (Rec: 08/21/20 12:07 [facility] [id number]) Special Tests Lumbar Spine Special Tests Slump Test Results positive B PT-OP-M Strength Start: 08/07/20 09:45 Freq: Status: Active Protocol: Document 10/17/20 16:05 [facility] (Rec: 10/17/20 16:42 [facility] [id number]) Hip Strength Hip Manual Muscle Testing Right Flexion (L2) 4 Good Extension (S1) 3+ Fair+ Abduction 4 Good Adduction 4 Good External Rotation 4+ Good+ Internal Rotation 4+ Good+ Left Flexion (L2) 4+ Good+ Extension (S1) 3+ Fair+ Abduction 4 Good Adduction 4 Good External Rotation 4- Good- Internal Rotation 4 Good Knee Strength Knee Manual Muscle Testing Right Flexion (S2) 4+ Good+ Extension (L3) 4+ Good+ Left Flexion (S2) 4+ Good+ Extension (L3) 4+ Good+ Ankle/Foot Strength Ankle and Foot Manual Muscle Testing Right Dorsiflexion (L4) 5 Normal Plantarflexion (S1) 5 Normal Comments 20 heel raises Left Dorsiflexion (L4) 5 Normal Plantarflexion (S1) 4 Good Comments 12 raises but has more difficulty than R PT-OP-Q Treatments Start: 08/07/20 09:45 Freq: Status: Active Protocol: Document 11/08/20 10:07 [facility] (Rec: 11/08/20 10:35 [facility] [id number]) Therapeutic Exercises Supine Exercises pirformis stretch Supine Exercise Name 1.figure 4 2. knee opposite chest 3. SKTC 4. DKTC Side bilateral Reps/Minutes 30 sec ea Sitting Exercises stretch Sitting Exercise Name 1. figure 4 2. piriformis Side bilateral Reps/Minutes 30 sec ea Therapeutic Activity Therapeutic Activity sleep position Name supine and s/l prop w/pillows and towels Self-Care/Home Management Treatment Education Other Education edu importance of working on his posture during the day, edu on importance of seeing psychologist if he is feeling stressed out and having bad dreams consistantly, edu re: sicne c/o he does not sleep well seeing sleep specialist possibly, edu to avoid flexing himself up to fall asleep while playing on ipad PT-OP-R Modalities Start: 08/07/20 09:45 Freq: Status: Active Protocol: Document 09/10/20 10:24 [facility] (Rec: 09/10/20 10:58 [facility] [id number]) Hot Pack/Cold Pack Treatment Hot Pack Location lumbar Patient Position Hooklying Treatment Duration (minutes) 15 PT-OP-T Assessment and Plan Start: 08/07/20 09:45 Freq: Status: Active Protocol: Document 11/08/20 10:07 [facility] (Rec: 11/08/20 10:35 [facility] [id number]) Physical Therapy Assessment Goals posture Short Term Goal (STG) Pt will show improvement in postural alignment by inc of VCT to 3/5. 09/25-2/5 STG Duration achieved Alf Goal (LTG) Pt will show imrpoved postural alignment and staiblity in order to show improved ability to lift without inc pain by improvement of EFT to at least 3/5. LTG Duration 12/17/20 strength Short Term Goal (STG) Pt will be indep w/HEP STG Duration achieved Resource Technician Goal (LTG) Pt will improve LE strength to at least 4+/5 in all planes and LPM to at least 3/5 to show improved stability in order to inc pt's ability to participate in ADLs. 09/25 improved 10/17-improving LTG Duration 12/17/20 activities Short Term Goal (STG) Pt will have improved range of motion of hip and lumbar spine in order to allow ease w /donning/doffing socks. 09/26 still some difficulty 10/17 no change STG Duration 11/16/20 Resource Technician Goal (LTG) Pt will return to being able to do at least 30 min of activity (biking or walking) without increased pain. 09/26-bikes to post office and back about 10-20 min LTG Duration achieved MANUEL Impairment 28/50 Short Term Goal (STG) Pt will improve MANUEL score to no more than 21/50 to show improved function. STG Duration achieved to 15/50 Alf Goal (LTG) Pt will improve MANUEL score to no more than 10/50 to show improved function. LTG Duration 12/17/20 Assessment Summary Assessment Discussed heavily w/pt importance of progress to cont PT so will work for inc range for mobility for socks/shoes but pt notes pain mostly when first waking up so sleep position given. Physical Therapy Plan Frequency and Duration Frequency of Treatment 1-2x/Week Duration of Treatment 2 months Plan of Care Start Date 10/17/20 Plan of Care End Date 12/17/20 Next Visit Focus/Plan Next Note Type Treatment Note Next Visit Plan work on spinal flexion mobility and hip mobility to improve ability to don socks and shoes
--- NOTE | 2020-11-12 15:24 | PT.OTN ---
Current Diagnoses Low back pain (11/12/20) Difficulty in walking, not elsewhere classified (11/12/20) Abnormal posture (11/12/20) Weakness (11/12/20) Physical Therapy Treatment Note PT-OP-A Visit Information Start: 08/07/20 09:45 Freq: Status: Active Protocol: Document 11/12/20 14:30 [facility] (Rec: 11/12/20 15:18 [facility] [id number]) Out-Patient Physical Therapy Visit Information Visit Information Visit Type Treatment Note Visit Note 10/27 Visit Start Time 14:30 Visit Stop Time 15:13 Total Visit Minutes 43 Visit Number 22 Number of ATHLETIC SHOE DESIGNER Visits 1 PT-OP-B Current Condition Start: 08/07/20 09:45 Freq: Status: Active Protocol: Document 08/21/20 10:02 [facility] (Rec: 08/21/20 12:07 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 On admitted to ICU for anxiety, depression and overflow of fluids and CARDONA on Apr 14, 2019 and spent 5 days there then did rehab at [facility] for 18 days. He has been seeing mult MDs since then (special education coordinator, Dr. Terrell- quarantine officer, now Dr. Oliveira, then Dr. Aguirre-Oncologolist, and another Oncologist in [facility]). He was told he messed up his bladder and kidneys. On August he was referred to IRG until a month ago, he transferred care here for PT. He is going to see Pain management MD on September 24. He saw an Ortho surgeon and did a MRI of back which saw compressed disc. L&I wants him to go to [facility] to see MD. Pt notes he is having to work with attornies d/t his prior employer denying him working there. Employer now is finally saying he did work there. Pt is supposed to see ortho in [facility] September 23 but they have cancelled this last min 8 times already. Pt reports post neck pain comes and goes and has pain into shoulders and B upper arms. he notes he has trouble in his back even bending over to get to get to socks/shoes. Pt reprots getting exhausted a lot. Back can get so painful with lifting that he can barely move after. Pt reprots MDs are unsure if he has prostate cancer but are treating him w/ meds. He is on a lot of meds for his heart. Pt reprots he is taking an injection. 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 He has been very depressed since this injury d/t dec activity tolerance. [place], and [place] the [place] now [place]. Prior Treatments and Tests PT-neck pain in the beginning then more recently back pain - only 2 sessions for back Treatment Goals Patient/Caregiver Goals Be able to put on socks/shoes easier PT-OP-C Subjective Start: 08/07/20 09:45 Freq: Status: Active Protocol: Document 11/12/20 14:30 [facility] (Rec: 11/12/20 15:18 [facility] [id number]) OP-PT Subjective Patient Comments Patient Comments Pt spoke with his ortho who wants pt to continue therapy PT-OP-F Manual Assessment Start: 08/07/20 09:45 Freq: Status: Active Protocol: Document 08/21/20 10:02 [facility] (Rec: 08/21/20 12:07 [facility] [id number]) Manual Assessments Soft Tissue Assessment Soft Tissue Mobility Assessment tight B QL & ES Joint Mobility Assessment Joint Mobility Assessment L iliac crest higher PT-OP-G Mobility & Gait Start: 08/07/20 09:45 Freq: Status: Active Protocol: Document 08/21/20 10:02 [facility] (Rec: 08/21/20 12:07 [facility] [id number]) OP Mobility Evaluation Bed Mobility Rolling scooches to roll-notes some abdomenal pain OP Gait Assessment Comments Gait Comments fwd leaned and lat shifts, dec push off PT-OP-J Posture/Palpation/Skin Start: 08/07/20 09:45 Freq: Status: Active Protocol: Document 10/17/20 16:05 [facility] (Rec: 10/17/20 16:42 [facility] [id number]) Posture Evaluation Bronson Postural Classification System Vertebral Compression Test 3 Elbow Flexion Test 2 Lumbar Protective Mechanism Left AP 2 Lumbar Protective Mechanism Right AP 2 Lumbar Protective Mechanism Left PA 2 Lumbar Protective Mechanism Right PA 0 PT-OP-K Range of Motion Start: 08/07/20 09:45 Freq: Status: Active Protocol: Document 09/26/20 09:08 [facility] (Rec: 09/26/20 09:46 [facility] [id number]) Lumbar Spine Range of Motion Lumbar Spine Active Degrees Flexion 35 Extension 10 Rotation Left 43 Rotation Right 42 Lateral Flexion Left 12 Lateral Flexion Right 15 ROM Limitations Pain PT-OP-L Special Tests Start: 08/07/20 09:45 Freq: Status: Active Protocol: Document 08/21/20 10:02 [facility] (Rec: 08/21/20 12:07 [facility] [id number]) Special Tests Lumbar Spine Special Tests Slump Test Results positive B PT-OP-M Strength Start: 08/07/20 09:45 Freq: Status: Active Protocol: Document 10/17/20 16:05 [facility] (Rec: 10/17/20 16:42 [facility] [id number]) Hip Strength Hip Manual Muscle Testing Right Flexion (L2) 4 Good Extension (S1) 3+ Fair+ Abduction 4 Good Adduction 4 Good External Rotation 4+ Good+ Internal Rotation 4+ Good+ Left Flexion (L2) 4+ Good+ Extension (S1) 3+ Fair+ Abduction 4 Good Adduction 4 Good External Rotation 4- Good- Internal Rotation 4 Good Knee Strength Knee Manual Muscle Testing Right Flexion (S2) 4+ Good+ Extension (L3) 4+ Good+ Left Flexion (S2) 4+ Good+ Extension (L3) 4+ Good+ Ankle/Foot Strength Ankle and Foot Manual Muscle Testing Right Dorsiflexion (L4) 5 Normal Plantarflexion (S1) 5 Normal Comments 20 heel raises Left Dorsiflexion (L4) 5 Normal Plantarflexion (S1) 4 Good Comments 12 raises but has more difficulty than R PT-OP-Q Treatments Start: 08/07/20 09:45 Freq: Status: Active Protocol: Document 11/12/20 14:30 [facility] (Rec: 11/12/20 15:18 [facility] [id number]) Gym Equipment Therapeutic Ball seated Ball Size/Color 65cm Body Position seated Reps/Duration 10 ea (1-4) Comments 1. pelvic [place] 2. march alt B 3. kicks B 4. lean back V sit 5. fwd flex stretch 2X30 SEC Therapeutic Exercises Supine Exercises pirformis stretch Supine Exercise Name 1.figure 4 2. knee opposite chest 3. SKTC 4. DKTC Side bilateral Reps/Minutes 30 sec ea Sitting Exercises stretch Sitting Exercise Name 1. figure 4 2. piriformis 3. lumbar flex stretch Side bilateral Reps/Minutes 30 sec ea Other Exercises cat/camel Reps/Minutes 10 ea Comments yoseph cueing quadruped Other Exercise Name 1. alt arm lifts 2. alt hip ext Side bilateral Reps/Minutes 15 ea Comments foam roll on back Self-Care/Home Management Treatment Education Other Education Pt expresses concern over possible d/c and feels he needs to continue with therapy . Discussed how insurance works and how we have to continue showing improvement and how far pt has come with his back pain since starting. Encouraged pt to continue with HEP to decrease back pain felt in the mornings PT-OP-R Modalities Start: 08/07/20 09:45 Freq: Status: Active Protocol: Document 09/10/20 10:24 [facility] (Rec: 09/10/20 10:58 [facility] [id number]) Hot Pack/Cold Pack Treatment Hot Pack Location lumbar Patient Position Hooklying Treatment Duration (minutes) 15 PT-OP-T Assessment and Plan Start: 08/07/20 09:45 Freq: Status: Active Protocol: Document 11/12/20 14:30 [facility] (Rec: 11/12/20 15:18 [facility] [id number]) Physical Therapy Assessment Goals posture Short Term Goal (STG) Pt will show improvement in postural alignment by inc of VCT to 3/5. 09/25-25 STG Duration achieved Prison Goal (LTG) Pt will show imrpoved postural alignment and staiblity in order to show improved ability to lift without inc pain by improvement of EFT to at least 3/5. LTG Duration 12/17/20 strength Short Term Goal (STG) Pt will be indep w/HEP STG Duration achieved Screen Tender Goal (LTG) Pt will improve LE strength to at least 4+/5 in all planes and LPM to at least 3/5 to show improved stability in order to inc pt's ability to participate in ADLs. 09/25 improved 10/17-improving LTG Duration 12/17/20 activities Short Term Goal (STG) Pt will have improved range of motion of hip and lumbar spine in order to allow ease w /donning/doffing socks. 09/26 still some difficulty 10/17 no change STG Duration 11/16/20 Prison Goal (LTG) Pt will return to being able to do at least 30 min of activity (biking or walking) without increased pain. 09/26-bikes to post office and back about 10-20 min LTG Duration achieved MANUEL Impairment 28/50 Short Term Goal (STG) Pt will improve MANUEL score to no more than 21/50 to show improved function. STG Duration achieved to 15/50 Prison Goal (LTG) Pt will improve MANUEL score to no more than 10/50 to show improved function. LTG Duration 12/17/20 Assessment Summary Assessment Joel continues to require heavy cues for lumbar flexion exercises. He expresses concern over being d/c from therapy and feels he is not ready and still has LBP. Discussed with pt how we have to show progress for him to continue and how his back pain is only in the AM now. Encouraged pt to continue with his exercises at home. After reviewing new HEP exercises given last session, it is clear pt has not been performing at home as he needs heavy cues for positioning for proper form. Will continue working on form during stretches to improve LBP. Physical Therapy Plan Frequency and Duration Frequency of Treatment 1-2x/Week Duration of Treatment 2 months Plan of Care Start Date 10/17/20 Plan of Care End Date 12/17/20 Therapeutic Interventions Therapeutic Interventions Aquatic Therapy,Balance Training,Gait Training,Home Exercise Program,Manual Therapy,Neuromuscular Re- education,Patient/Caregiver Education,Self-Care/Home Management,Soft Tissue Mobilization,Taping, Therapeutic Activities, Therapeutic Exercises Modalities Cold Pack/Ice Massage,Hot Packs Next Visit Focus/Plan Next Note Type Treatment Note Next Visit Plan work on spinal flexion mobility and hip mobility to improve ability to don socks and shoes
--- NOTE | 2020-11-16 10:31 | PT.OTN ---
Current Diagnoses Low back pain (11/16/20) Difficulty in walking, not elsewhere classified (11/16/20) Abnormal posture (11/16/20) Weakness (11/16/20) Physical Therapy Treatment Note PT-OP-A Visit Information Start: 08/07/20 09:45 Freq: Status: Active Protocol: Document 11/16/20 09:52 MA (Rec: 11/16/20 10:31 MA [id number]) Out-Patient Physical Therapy Visit Information Visit Information Visit Type Treatment Note Visit Note 11/27 Visit Start Time 09:45 Visit Stop Time 10:28 Total Visit Minutes 43 Visit Number 23 Number of PROGRAM ADVISOR Visits 2 PT-OP-B Current Condition Start: 08/07/20 09:45 Freq: Status: Active Protocol: Document 08/21/20 10:02 [facility] (Rec: 08/21/20 12:07 [facility] [id number]) Current Condition History of Current Condition Onset Date May 30, 2017 Current Complaints LBP History of Current Condition 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 On admitted to ICU for anxiety, depression and overflow of fluids and CARDONA on Apr 14, 2019 and spent 5 days there then did rehab at [facility] for 18 days. He has been seeing mult MDs since then (assistant refinery operator, Dr. Terrell- glass robot operator, now Dr. Oliveira, then Dr. Aguirre-Oncologolist, and another Oncologist in [facility]). He was told he messed up his bladder and kidneys. On August he was referred to IR[facility] until a month ago, he transferred care here for PT. He is going to see Pain management MD on September 24. He saw an Ortho surgeon and did a MRI of back which saw compressed disc. L&I wants him to go to [facility] to see MD. Pt notes he is having to work with attornies d/t his prior employer denying him working there. Employer now is finally saying he did work there. Pt is supposed to see ortho in [facility] September 23 but they have cancelled this last min 8 times already. Pt reports post neck pain comes and goes and has pain into shoulders and B upper arms. he notes he has trouble in his back even bending over to get to get to socks/shoes. Pt reprots getting exhausted a lot. Back can get so painful with lifting that he can barely move after. Pt reprots MDs are unsure if he has prostate cancer but are treating him w/ meds. He is on a lot of meds for his heart. Pt reprots he is taking an injection. 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 He has been very depressed since this injury d/t dec activity tolerance. [place], [place]. Prior Treatments and Tests PT-neck pain in the beginning then more recently back pain - only 2 sessions for back Treatment Goals Patient/Caregiver Goals Be able to put on socks/shoes easier PT-OP-C Subjective Start: 08/07/20 09:45 Freq: Status: Active Protocol: Document 11/16/20 09:52 MA (Rec: 11/16/20 10:31 MA [id number]) OP-PT Subjective Patient Comments Patient Comments Pt states his back feels a little better. He has been biking [employer] with his electric bike PT-OP-F Manual Assessment Start: 08/07/20 09:45 Freq: Status: Active Protocol: Document 08/21/20 10:02 [facility] (Rec: 08/21/20 12:07 [facility] [id number]) Manual Assessments Soft Tissue Assessment Soft Tissue Mobility Assessment tight B QL & ES Joint Mobility Assessment Joint Mobility Assessment L iliac crest higher PT-OP-G Mobility & Gait Start: 08/07/20 09:45 Freq: Status: Active Protocol: Document 08/21/20 10:02 [facility] (Rec: 08/21/20 12:07 [facility] [id number]) OP Mobility Evaluation Bed Mobility Rolling scooches to roll-notes some abdomenal pain OP Gait Assessment Comments Gait Comments fwd leaned and lat shifts, dec push off PT-OP-J Posture/Palpation/Skin Start: 08/07/20 09:45 Freq: Status: Active Protocol: Document 10/17/20 16:05 LR (Rec: 10/17/20 16:42 [facility] [id number]) Posture Evaluation Bronson Postural Classification System Vertebral Compression Test 3 Elbow Flexion Test 2 Lumbar Protective Mechanism Left AP 2 Lumbar Protective Mechanism Right AP 2 Lumbar Protective Mechanism Left PA 2 Lumbar Protective Mechanism Right PA 0 PT-OP-K Range of Motion Start: 08/07/20 09:45 Freq: Status: Active Protocol: Document 09/26/20 09:08 LR (Rec: 09/26/20 09:46 [facility] [id number]) Lumbar Spine Range of Motion Lumbar Spine Active Degrees Flexion 35 Extension 10 Rotation Left 43 Rotation Right 42 Lateral Flexion Left 12 Lateral Flexion Right 15 ROM Limitations Pain PT-OP-L Special Tests Start: 08/07/20 09:45 Freq: Status: Active Protocol: Document 08/21/20 10:02 [facility] (Rec: 08/21/20 12:07 [facility] [id number]) Special Tests Lumbar Spine Special Tests Slump Test Results positive B PT-OP-M Strength Start: 08/07/20 09:45 Freq: Status: Active Protocol: Document 10/17/20 16:05 [facility] (Rec: 10/17/20 16:42 [facility] [id number]) Hip Strength Hip Manual Muscle Testing Right Flexion (L2) 4 Good Extension (S1) 3+ Fair+ Abduction 4 Good Adduction 4 Good External Rotation 4+ Good+ Internal Rotation 4+ Good+ Left Flexion (L2) 4+ Good+ Extension (S1) 3+ Fair+ Abduction 4 Good Adduction 4 Good External Rotation 4- Good- Internal Rotation 4 Good Knee Strength Knee Manual Muscle Testing Right Flexion (S2) 4+ Good+ Extension (L3) 4+ Good+ Left Flexion (S2) 4+ Good+ Extension (L3) 4+ Good+ Ankle/Foot Strength Ankle and Foot Manual Muscle Testing Right Dorsiflexion (L4) 5 Normal Plantarflexion (S1) 5 Normal Comments 20 heel raises Left Dorsiflexion (L4) 5 Normal Plantarflexion (S1) 4 Good Comments 12 raises but has more difficulty than R PT-OP-Q Treatments Start: 08/07/20 09:45 Freq: Status: Active Protocol: Document 11/16/20 09:52 MA (Rec: 11/16/20 10:31 MA [id number]) Therapeutic Exercises Supine Exercises pirformis stretch Supine Exercise Name 1.figure 4 2. knee opposite chest 3. SKTC 4. DKTC Side bilateral Reps/Minutes 30 sec ea pelvic tilt Reps/Minutes 10x 5 second hold Comments heavy cues to keep core engaged Sitting Exercises stretch Sitting Exercise Name 1. figure 4 2. piriformis 3. lumbar flex stretch Side bilateral Reps/Minutes 30 sec ea Standing Exercises wall squat Standing Exercise Name standing squat at rail w/chair behind Side bilateral Reps/Minutes 2x15 Other Exercises cat/camel Reps/Minutes 10 ea Comments yoseph cueing jess pose Reps/Minutes 1 min x2 quadruped Other Exercise Name 1. alt arm lifts 2. alt hip ext Side bilateral Reps/Minutes 15 ea Comments foam roll on back PT-OP-R Modalities Start: 08/07/20 09:45 Freq: Status: Active Protocol: Document 09/10/20 10:24 MA (Rec: 09/10/20 10:58 MA [id number]) Hot Pack/Cold Pack Treatment Hot Pack Location lumbar Patient Position Hooklying Treatment Duration (minutes) 15 PT-OP-T Assessment and Plan Start: 08/07/20 09:45 Freq: Status: Active Protocol: Document 11/16/20 09:52 MA (Rec: 11/16/20 10:31 MA [id number]) Physical Therapy Assessment Goals posture Short Term Goal (STG) Pt will show improvement in postural alignment by inc of VCT to 3/5. 09/25-2/5 STG Duration achieved Attic Blower Goal (LTG) Pt will show imrpoved postural alignment and staiblity in order to show improved ability to lift without inc pain by improvement of EFT to at least 3/5. LTG Duration 12/17/20 strength Short Term Goal (STG) Pt will be indep w/HEP STG Duration achieved Attic Blower Goal (LTG) Pt will improve LE strength to at least 4+/5 in all planes and LPM to at least 3/5 to show improved stability in order to inc pt's ability to participate in ADLs. 09/25 improved 10/17-improving LTG Duration 12/17/20 activities Short Term Goal (STG) Pt will have improved range of motion of hip and lumbar spine in order to allow ease w /donning/doffing socks. 09/26 still some difficulty 10/17 no change STG Duration 11/16/20 Retirement Goal (LTG) Pt will return to being able to do at least 30 min of activity (biking or walking) without increased pain. 09/26-bikes to post office and back about 10-20 min LTG Duration achieved MANUEL Impairment 28/50 Short Term Goal (STG) Pt will improve MANUEL score to no more than 21/50 to show improved function. STG Duration achieved to 15/50 Retirement Goal (LTG) Pt will improve MANUEL score to no more than 10/50 to show improved function. LTG Duration 12/17/20 Assessment Summary Assessment Joel shows improvement with lumbar spinal flexion/ extension exercises. After reviewing HEP stretches, he feels his back feels much better. He requires frequent cues for posture throughout exercises today. Encouraged pt to continue with HEP at home over the next two weeks before next appt in November. Physical Therapy Plan Frequency and Duration Frequency of Treatment 1-2x/Week Duration of Treatment 2 months Plan of Care Start Date 10/17/20 Plan of Care End Date 12/17/20 Therapeutic Interventions Therapeutic Interventions Aquatic Therapy,Balance Training,Gait Training,Home Exercise Program,Manual Therapy,Neuromuscular Re- education,Patient/Caregiver Education,Self-Care/Home Management,Soft Tissue Mobilization,Taping, Therapeutic Activities, Therapeutic Exercises Modalities Cold Pack/Ice Massage,Hot Packs Next Visit Focus/Plan Next Note Type Treatment Note Next Visit Plan work on spinal flexion mobility and hip mobility to improve ability to don socks and shoes. Continue working on squat form at bar with chair posterior
--- NOTE | 2020-12-12 10:50 | PT.OTN ---
Current Diagnoses Low back pain (12/12/20) Difficulty in walking, not elsewhere classified (12/12/20) Abnormal posture (12/12/20) Weakness (12/12/20) Physical Therapy Treatment Note PT-OP-A Visit Information Start: 08/07/20 09:45 Freq: Status: Active Protocol: Document 12/12/20 09:49 [facility] (Rec: 12/12/20 10:50 [facility] [id number]) Out-Patient Physical Therapy Visit Information Visit Information Visit Type Progress Note Visit Note 04/29 Visit Start Time 09:49 Visit Stop Time 10:29 Total Visit Minutes 40 Visit Number 24 Number of C DEVELOPER Visits 0 PT-OP-B Current Condition Start: 08/07/20 09:45 Freq: Status: Active Protocol: Document 08/21/20 10:02 [facility] (Rec: 08/21/20 12:07 [facility] [id number]) Current Condition History of Current Condition Onset Date May 30, 2017 Current Complaints LBP History of Current Condition 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 On admitted to ICU for anxiety, depression and overflow of fluids and CARDONA on Apr 14, 2019 and spent 5 days there then did rehab at [facility] for 18 days. He has been seeing mult MDs since then (international operations manager, Dr. Terrell- green chain operator, now Dr. Oliveira, then Dr. Aguirre-Oncologolist, and another Oncologist in [facility]). He was told he messed up his bladder and kidneys. On August he was referred to IRG until a month ago, he transferred care here for PT. He is going to see Pain management MD on September 24. He saw an Ortho surgeon and did a MRI of back which saw compressed disc. L&I wants him to go to [facility] to see MD. Pt notes he is having to work with attornies d/t his prior employer denying him working there. Employer now is finally saying he did work there. Pt is supposed to see ortho in [facility] September 23 but they have cancelled this last min 8 times already. Pt reports post neck pain comes and goes and has pain into shoulders and B upper arms. he notes he has trouble in his back even bending over to get to get to socks/shoes. Pt reprots getting exhausted a lot. Back can get so painful with lifting that he can barely move after. Pt reprots MDs are unsure if he has prostate cancer but are treating him w/ meds. He is on a lot of meds for his heart. Pt reprots he is taking an injection. 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 He has been very depressed since this injury d/t dec activity tolerance. [place], and [place]. Prior Treatments and Tests PT-neck pain in the beginning then more recently back pain - only 2 sessions for back Treatment Goals Patient/Caregiver Goals Be able to put on socks/shoes easier PT-OP-C Subjective Start: 08/07/20 09:45 Freq: Status: Active Protocol: Document 12/12/20 09:49 [facility] (Rec: 12/12/20 10:50 [facility] [id number]) OP-PT Subjective Patient Comments Patient Comments Pt just got a yoga video to start. notes still walking and biking. Using turbo on bike less. Notes still difficulty w /donning shoes and socks. He has been loosing weight. He has been drinking more water d /t feeling tired and dizzy sometimes. PT-OP-F Manual Assessment Start: 08/07/20 09:45 Freq: Status: Active Protocol: Document 08/21/20 10:02 [facility] (Rec: 08/21/20 12:07 [facility] [id number]) Manual Assessments Soft Tissue Assessment Soft Tissue Mobility Assessment tight B QL & ES Joint Mobility Assessment Joint Mobility Assessment L iliac crest higher PT-OP-G Mobility & Gait Start: 08/07/20 09:45 Freq: Status: Active Protocol: Document 08/21/20 10:02 [facility] (Rec: 08/21/20 12:07 [facility] [id number]) OP Mobility Evaluation Bed Mobility Rolling scooches to roll-notes some abdomenal pain OP Gait Assessment Comments Gait Comments fwd leaned and lat shifts, dec push off PT-OP-J Posture/Palpation/Skin Start: 08/07/20 09:45 Freq: Status: Active Protocol: Document 10/17/20 16:05 LR (Rec: 10/17/20 16:42 [facility] [id number]) Posture Evaluation Bronson Postural Classification System Vertebral Compression Test 3 Elbow Flexion Test 2 Lumbar Protective Mechanism Left AP 2 Lumbar Protective Mechanism Right AP 2 Lumbar Protective Mechanism Left PA 2 Lumbar Protective Mechanism Right PA 0 PT-OP-K Range of Motion Start: 08/07/20 09:45 Freq: Status: Active Protocol: Document 12/12/20 09:49 [facility] (Rec: 12/12/20 10:50 [facility] [id number]) Lumbar Spine Range of Motion Lumbar Spine Active Degrees Flexion 45 Extension 18 Rotation Left 46 Rotation Right 44 Lateral Flexion Left 16 Lateral Flexion Right 21 ROM Limitations Pain PT-OP-L Special Tests Start: 08/07/20 09:45 Freq: Status: Active Protocol: Document 08/21/20 10:02 [facility] (Rec: 08/21/20 12:07 [facility] [id number]) Special Tests Lumbar Spine Special Tests Slump Test Results positive B PT-OP-M Strength Start: 08/07/20 09:45 Freq: Status: Active Protocol: Document 12/12/20 09:49 [facility] (Rec: 12/12/20 10:50 [facility] [id number]) Hip Strength Hip Manual Muscle Testing Right Flexion (L2) 4 Good Extension (S1) 3+ Fair+ Abduction 4- Good- Adduction 4- Good- External Rotation 4- Good- Internal Rotation 4+ Good+ Left Flexion (L2) 4 Good Extension (S1) 3+ Fair+ Abduction 4- Good- Adduction 4 Good External Rotation 4 Good Internal Rotation 4+ Good+ Knee Strength Knee Manual Muscle Testing Right Flexion (S2) 4+ Good+ Extension (L3) 4+ Good+ Left Flexion (S2) 4+ Good+ Extension (L3) 4+ Good+ Ankle/Foot Strength Ankle and Foot Manual Muscle Testing Right Dorsiflexion (L4) 5 Normal Plantarflexion (S1) 5 Normal Comments 20 heel raises Left Dorsiflexion (L4) 5 Normal Plantarflexion (S1) 5 Normal PT-OP-Q Treatments Start: 08/07/20 09:45 Freq: Status: Active Protocol: Document 12/12/20 09:49 [facility] (Rec: 12/12/20 10:50 [facility] [id number]) Therapeutic Exercises Supine Exercises pirformis stretch Supine Exercise Name 1. knee opposite chest 2. DKTC Side bilateral Reps/Minutes 45 sec ea pelvic tilt Supine Exercise Name w/SLR Side bilateral Reps/Minutes 10 Sidelying Exercises clamshell Side bilateral Reps/Minutes 15 Sitting Exercises stretch Sitting Exercise Name 1. figure 4 2. butterflly Side bilateral Reps/Minutes 30 sec Self-Care/Home Management Treatment Education Other Education discuss work towards DC at the end of the month. Edu improtance of cont to wrk on inc less use of bike electric assist and inc distance of walks and improtance of cont HEP exercises. PT-OP-R Modalities Start: 08/07/20 09:45 Freq: Status: Active Protocol: Document 09/10/20 10:24 MA (Rec: 09/10/20 10:58 MA [id number]) Hot Pack/Cold Pack Treatment Hot Pack Location lumbar Patient Position Hooklying Treatment Duration (minutes) 15 PT-OP-T Assessment and Plan Start: 08/07/20 09:45 Freq: Status: Active Protocol: Document 12/12/20 09:49 [facility] (Rec: 12/12/20 10:50 [facility] [id number]) Physical Therapy Assessment Goals posture Short Term Goal (STG) Pt will show improvement in postural alignment by inc of VCT to 3/5. 09/25-2 STG Duration achieved Human Resources Manager Goal (LTG) Pt will show imrpoved postural alignment and staiblity in order to show improved ability to lift without inc pain by improvement of EFT to at least 3/5. 12/12-5 LTG Duration 01/12/21 strength Short Term Goal (STG) Pt will be indep w/HEP STG Duration achieved Human Resources Manager Goal (LTG) Pt will improve LE strength to at least 4+/5 in all planes and LPM to at least 3/5 to show improved stability in order to inc pt's ability to participate in ADLs. 09/25 improved 10/17-improving 12/12-min change LPM 05/25 LTG Duration 01/12/21 activities Short Term Goal (STG) Pt will have improved range of motion of hip and lumbar spine in order to allow ease w /donning/doffing socks. 09/26 still some difficulty 10/17 no change 12/12-some improvement w/range but still difficulty noted STG Duration 01/07/21 Care Home Goal (LTG) Pt will return to being able to do at least 30 min of activity (biking or walking) without increased pain. 09/26-bikes to post office and back about 10-20 min LTG Duration achieved MANUEL Impairment 28/50 Short Term Goal (STG) Pt will improve MANUEL score to no more than 21/50 to show improved function. STG Duration achieved to 15/50 Human Resources Manager Goal (LTG) Pt will improve MANUEL score to no more than 10/50 to show improved function. 12/12- LTG Duration 01/12 Assessment Summary Assessment Pt has not made much progress since last progress not but has not been seen for 1 month almost d/t pt being busy w/ brother affairs and other appts. He is still having difficulty w/long time in bed and with donning socks/ shoes. He would beneift from [facility] PT to work on this. Physical Therapy Plan Frequency and Duration Frequency of Treatment 1-2x/Week Duration of Treatment 2 months Plan of Care Start Date 12/12/20 Plan of Care End Date 01/12/21 Therapeutic Interventions Therapeutic Interventions Aquatic Therapy,Balance Training,Gait Training,Home Exercise Program,Manual Therapy,Neuromuscular Re- education,Patient/Caregiver Education,Self-Care/Home Management,Soft Tissue Mobilization,Taping, Therapeutic Activities, Therapeutic Exercises Modalities Cold Pack/Ice Massage,Hot Packs Next Visit Focus/Plan Next Note Type Treatment Note Next Visit Plan work on spinal flexion mobility and hip mobility to improve ability to don socks and shoes. Continue working on squat form at bar with chair posterior
--- NOTE | 2020-12-12 10:51 | PT.OPPOC ---
Physical, Occupational & Speech Therapy At [facility] Current Diagnoses Low back pain (12/12/20) Difficulty in walking, not elsewhere classified (12/12/20) Abnormal posture (12/12/20) Weakness (12/12/20) Visit Care Team Role Provider Type Avila Oliveira MD Attending Provider Physician Primary Care Provider Referring Provider Specialty: Internal Medicine Address: [address] [place] [address], [facility] Email: [email or web address] Plan Of Care PT-OP-T Assessment and Plan Start: 08/07/20 09:45 Freq: Status: Active Protocol: Document 12/12/20 09:49 [facility] (Rec: 12/12/20 10:50 [facility] [id number]) Physical Therapy Assessment Goals posture Short Term Goal (STG) Pt will show improvement in postural alignment by inc of VCT to 3/5. 09/25-05/25 STG Duration achieved Area Attendant Goal (LTG) Pt will show imrpoved postural alignment and staiblity in order to show improved ability to lift without inc pain by improvement of EFT to at least 3/5. 12/12-04/24 LTG Duration 01/12/21 strength Short Term Goal (STG) Pt will be indep w/HEP STG Duration achieved Area Attendant Goal (LTG) Pt will improve LE strength to at least 4+/5 in all planes and LPM to at least 3/5 to show improved stability in order to inc pt's ability to participate in ADLs. 09/25 improved 10/17-improving 12/12-min change LPM 2/ LTG Duration 01/12/21 activities Short Term Goal (STG) Pt will have improved range of motion of hip and lumbar spine in order to allow ease w /donning/doffing socks. 09/26 still some difficulty 10/17 no change 12/12-some improvement w/range but still difficulty noted STG Duration 01/07/21 Fdc Goal (LTG) Pt will return to being able to do at least 30 min of activity (biking or walking) without increased pain. 09/26-bikes to post office and back about 10-20 min LTG Duration achieved MANUEL Impairment 28/50 Short Term Goal (STG) Pt will improve MANUEL score to no more than 21/50 to show improved function. STG Duration achieved to 15/50 Area Attendant Goal (LTG) Pt will improve MANUEL score to no more than 10/50 to show improved function. 12/12- LTG Duration 01/12 Assessment Summary Assessment Pt has not made much progress since last progress not but has not been seen for 1 month almost d/t pt being busy w/ brother affairs and other appts. He is still having difficulty w/long time in bed and with donning socks/ shoes. He would beneift from [facility] PT to work on this. Physical Therapy Plan Frequency and Duration Frequency of Treatment 1-2x/Week Duration of Treatment 2 months Plan of Care Start Date 12/12/20 Plan of Care End Date 01/12/21 Therapeutic Interventions Therapeutic Interventions Aquatic Therapy,Balance Training,Gait Training,Home Exercise Program,Manual Therapy,Neuromuscular Re- education,Patient/Caregiver Education,Self-Care/Home Management,Soft Tissue Mobilization,Taping, Therapeutic Activities, Therapeutic Exercises Modalities Cold Pack/Ice Massage,Hot Packs Next Visit Focus/Plan Next Note Type Treatment Note Next Visit Plan work on spinal flexion mobility and hip mobility to improve ability to don socks and shoes. Continue working on squat form at bar with chair posterior Plan of Care Dates Plan of Care Start Date 12/12/20 Plan of Care End Date 01/12/21 Electronically Signed by: Jazz Powell, PT 12/12/20 1051 Please Sign and Return: I have reviewed this Plan of Care and certify that the skilled therapy services above are required to meet the patient?s needs. Physician Signature Date Printed Name and Credentials Clinical Instructor Signature Printed Name and Credentials
--- NOTE | 2020-12-18 09:04 | PT.OTN ---
Current Diagnoses Low back pain (12/18/20) Difficulty in walking, not elsewhere classified (12/18/20) Abnormal posture (12/18/20) Weakness (12/18/20) Physical Therapy Treatment Note PT-OP-A Visit Information Start: 08/07/20 09:45 Freq: Status: Active Protocol: Document 12/18/20 08:26 [facility] (Rec: 12/18/20 09:04 [facility] [id number]) Out-Patient Physical Therapy Visit Information Visit Information Visit Type Treatment Note Visit Note 05/30 Visit Start Time 08:20 Visit Stop Time 08:59 Total Visit Minutes 39 Visit Number 25 Number of HEDIS SPECIALIST Visits 0 PT-OP-B Current Condition Start: 08/07/20 09:45 Freq: Status: Active Protocol: Document 08/21/20 10:02 [facility] (Rec: 08/21/20 12:07 [facility] [id number]) Current Condition History of Current Condition Onset Date May 30, 2017 Current Complaints LBP History of Current Condition Pt reports 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 On admitted to ICU for anxiety, depression and overflow of fluids and CARDONA on Apr 14, 2019 and spent 5 days there then did rehab at [facility] for 18 days. He has been seeing mult MDs since then (business objects consultant, Dr. Terrell- weight training instructor, now Dr. Oliveira, then Dr. Aguirre-Oncologolist, and another Oncologist in [facility]). He was told he messed up his bladder and kidneys. On August he was referred to [facility] until a month ago, he transferred care here for PT. He is going to see Pain management MD on September 24. He saw an Ortho surgeon and did a MRI of back which saw compressed disc. L&I wants him to go to [facility] to see MD. Pt notes he is having to work with attornies d/t his prior employer denying him working there. Employer now is finally saying he did work there. Pt is supposed to see ortho in [facility] September 23 but they have cancelled this last min 8 times already. Pt reports post neck pain comes and goes and has pain into shoulders and B upper arms. he notes he has trouble in his back even bending over to get to get to socks/shoes. Pt reprots getting exhausted a lot. Back can get so painful with lifting that he can barely move after. Pt reprots MDs are unsure if he has prostate cancer but are treating him w/ meds. He is on a lot of meds for his heart. Pt reprots he is taking an injection. 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 He has been very depressed since this injury d/t dec activity tolerance. [place], [place]. Prior Treatments and Tests PT-neck pain in the beginning then more recently back pain - only 2 sessions for back Treatment Goals Patient/Caregiver Goals Be able to put on socks/shoes easier PT-OP-C Subjective Start: 08/07/20 09:45 Freq: Status: Active Protocol: Document 12/18/20 08:26 [facility] (Rec: 12/18/20 09:04 [facility] [id number]) OP-PT Subjective Patient Comments Patient Comments Pt reports a few days ago his pain was awful first thing in the AM PT-OP-F Manual Assessment Start: 08/07/20 09:45 Freq: Status: Active Protocol: Document 08/21/20 10:02 [facility] (Rec: 08/21/20 12:07 [facility] [id number]) Manual Assessments Soft Tissue Assessment Soft Tissue Mobility Assessment tight B QL & ES Joint Mobility Assessment Joint Mobility Assessment L iliac crest higher PT-OP-G Mobility & Gait Start: 08/07/20 09:45 Freq: Status: Active Protocol: Document 08/21/20 10:02 [facility] (Rec: 08/21/20 12:07 [facility] [id number]) OP Mobility Evaluation Bed Mobility Rolling scooches to roll-notes some abdomenal pain OP Gait Assessment Comments Gait Comments fwd leaned and lat shifts, dec push off PT-OP-J Posture/Palpation/Skin Start: 08/07/20 09:45 Freq: Status: Active Protocol: Document 10/17/20 16:05 [facility] (Rec: 10/17/20 16:42 [facility] [id number]) Posture Evaluation Bronson Postural Classification System Vertebral Compression Test 3 Elbow Flexion Test 2 Lumbar Protective Mechanism Left AP 2 Lumbar Protective Mechanism Right AP 2 Lumbar Protective Mechanism Left PA 2 Lumbar Protective Mechanism Right PA 0 PT-OP-K Range of Motion Start: 08/07/20 09:45 Freq: Status: Active Protocol: Document 12/12/20 09:49 [facility] (Rec: 12/12/20 10:50 [facility] [id number]) Lumbar Spine Range of Motion Lumbar Spine Active Degrees Flexion 45 Extension 18 Rotation Left 46 Rotation Right 44 Lateral Flexion Left 16 Lateral Flexion Right 21 ROM Limitations Pain PT-OP-L Special Tests Start: 08/07/20 09:45 Freq: Status: Active Protocol: Document 08/21/20 10:02 [facility] (Rec: 08/21/20 12:07 [facility] [id number]) Special Tests Lumbar Spine Special Tests Slump Test Results positive B PT-OP-M Strength Start: 08/07/20 09:45 Freq: Status: Active Protocol: Document 12/12/20 09:49 [facility] (Rec: 12/12/20 10:50 [facility] [id number]) Hip Strength Hip Manual Muscle Testing Right Flexion (L2) 4 Good Extension (S1) 3+ Fair+ Abduction 4- Good- Adduction 4- Good- External Rotation 4- Good- Internal Rotation 4+ Good+ Left Flexion (L2) 4 Good Extension (S1) 3+ Fair+ Abduction 4- Good- Adduction 4 Good External Rotation 4 Good Internal Rotation 4+ Good+ Knee Strength Knee Manual Muscle Testing Right Flexion (S2) 4+ Good+ Extension (L3) 4+ Good+ Left Flexion (S2) 4+ Good+ Extension (L3) 4+ Good+ Ankle/Foot Strength Ankle and Foot Manual Muscle Testing Right Dorsiflexion (L4) 5 Normal Plantarflexion (S1) 5 Normal Comments 20 heel raises Left Dorsiflexion (L4) 5 Normal Plantarflexion (S1) 5 Normal PT-OP-Q Treatments Start: 08/07/20 09:45 Freq: Status: Active Protocol: Document 12/18/20 08:26 [facility] (Rec: 12/18/20 09:04 [facility] [id number]) Therapeutic Activity Therapeutic Activity lifting Comments 1. work on hip hinge in seated and progress to standing 2. work on squat w/dowel 3. squat w/o dowel 4. squat to cook pickled meat object ( used shoe) sleep position Name supine and s/l prop w/pillows and towels PT-OP-R Modalities Start: 08/07/20 09:45 Freq: Status: Active Protocol: Document 09/10/20 10:24 [facility] (Rec: 09/10/20 10:58 [facility] [id number]) Hot Pack/Cold Pack Treatment Hot Pack Location lumbar Patient Position Hooklying Treatment Duration (minutes) 15 PT-OP-T Assessment and Plan Start: 08/07/20 09:45 Freq: Status: Active Protocol: Document 12/18/20 08:26 [facility] (Rec: 12/18/20 09:04 [facility] [id number]) Physical Therapy Assessment Goals posture Short Term Goal (STG) Pt will show improvement in postural alignment by inc of VCT to 3/5. 09/25-05/25 STG Duration achieved Quilting Supervisor Goal (LTG) Pt will show imrpoved postural alignment and staiblity in order to show improved ability to lift without inc pain by improvement of EFT to at least 3/5. 12/12-04/24 LTG Duration 01/12/21 strength Short Term Goal (STG) Pt will be indep w/HEP STG Duration achieved Long-Term Goal (LTG) Pt will improve LE strength to at least 4+/5 in all planes and LPM to at least 3/5 to show improved stability in order to inc pt's ability to participate in ADLs. 09/25 improved 10/17-improving 12/12-min change LPM 05/25 LTG Duration 01/12/21 activities Short Term Goal (STG) Pt will have improved range of motion of hip and lumbar spine in order to allow ease w /donning/doffing socks. 09/26 still some difficulty 10/17 no change 12/12-some improvement w/range but still difficulty noted STG Duration 01/07/21 Quilting Supervisor Goal (LTG) Pt will return to being able to do at least 30 min of activity (biking or walking) without increased pain. 09/26-bikes to post office and back about 10-20 min LTG Duration achieved MANUEL Impairment 28/50 Short Term Goal (STG) Pt will improve MANUEL score to no more than 21/50 to show improved function. STG Duration achieved to 1550 Quilting Supervisor Goal (LTG) Pt will improve MANUEL score to no more than 10/50 to show improved function. 12/12- LTG Duration 01/12 Assessment Summary Assessment Pt required max cueing for working on lifting mechanics as he typically rounds his back to bend over. He struggled w/this but after significant time, improved with form. Pt reported significant relief w/propping of pillows for sleep Physical Therapy Plan Frequency and Duration Frequency of Treatment 1-2x/Week Duration of Treatment 2 months Plan of Care Start Date 12/12/20 Plan of Care End Date 01/12/21 Next Visit Focus/Plan Next Note Type Treatment Note Next Visit Plan work on spinal flexion mobility and hip mobility to improve ability to don socks and shoes. Continue working on squat form at bar with chair posterior
--- NOTE | 2021-01-10 17:18 | PT.OTN ---
Current Diagnoses Low back pain (01/10/21) Difficulty in walking, not elsewhere classified (01/10/21) Abnormal posture (01/10/21) Weakness (01/10/21) Physical Therapy Treatment Note PT-OP-A Visit Information Start: 08/07/20 09:45 Freq: Status: Active Protocol: Document 01/10/21 16:51 [facility] (Rec: 01/10/21 17:18 [facility] [id number]) Out-Patient Physical Therapy Visit Information Visit Information Visit Type Progress Note Visit Note 04/29 Visit Start Time 14:37 Visit Stop Time 15:16 Total Visit Minutes 39 Visit Number 26 Number of BUILDING OFFICIAL Visits 0 PT-OP-B Current Condition Start: 08/07/20 09:45 Freq: Status: Active Protocol: Document 08/21/20 10:02 [facility] (Rec: 08/21/20 12:07 [facility] [id number]) Current Condition History of Current Condition Onset Date May 30, 2017 Current Complaints LBP History of Current Condition Pt reports 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 On admitted to ICU for anxiety, depression and overflow of fluids and CARDONA on Apr 14, 2019 and spent 5 days there then did rehab at [facility] for 18 days. He has been seeing mult MDs since then (cardio tech, Dr. Terrell- model set artist, now Dr. Oliveira, then Dr. Aguirre-Oncologolist, and another Oncologist in [facility]). He was told he messed up his bladder and kidneys. On August he was referred to IRG until a month ago, he transferred care here for PT. He is going to see Pain management MD on September 24. He saw an Ortho surgeon and did a MRI of back which saw compressed disc. L&I wants him to go to [facility] to see MD. Pt notes he is having to work with attornies d/t his prior employer denying him working there. Employer now is finally saying he did work there. Pt is supposed to see ortho in [facility] September 23 but they have cancelled this last min 8 times already. Pt reports post neck pain comes and goes and has pain into shoulders and B upper arms. he notes he has trouble in his back even bending over to get to get to socks/shoes. Pt reprots getting exhausted a lot. Back can get so painful with lifting that he can barely move after. Pt reprots MDs are unsure if he has prostate cancer but are treating him w/ meds. He is on a lot of meds for his heart. Pt reprots he is taking an injection. 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 He has been very depressed since this injury d/t dec activity tolerance. [place], and [place]. 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 and boat PT-OP-F Manual Assessment Start: 08/07/20 09:45 Freq: Status: Active Protocol: Document 08/21/20 10:02 [facility] (Rec: 08/21/20 12:07 [facility] [id number]) Manual Assessments Soft Tissue Assessment Soft Tissue Mobility Assessment tight B QL & ES Joint Mobility Assessment Joint Mobility Assessment L iliac crest higher PT-OP-G Mobility & Gait Start: 08/07/20 09:45 Freq: Status: Active Protocol: Document 08/21/20 10:02 [facility] (Rec: 08/21/20 12:07 [facility] [id number]) OP Mobility Evaluation Bed Mobility Rolling scooches to roll-notes some abdomenal pain OP Gait Assessment Comments Gait Comments fwd leaned and lat shifts, dec push off PT-OP-J Posture/Palpation/Skin Start: 08/07/20 09:45 Freq: Status: Active Protocol: Document 10/17/20 16:05 [facility] (Rec: 10/17/20 16:42 [facility] [id number]) Posture Evaluation Bronson Postural Classification System Vertebral Compression Test 3 Elbow Flexion Test 2 Lumbar Protective Mechanism Left AP 2 Lumbar Protective Mechanism Right AP 2 Lumbar Protective Mechanism Left PA 2 Lumbar Protective Mechanism Right PA 0 PT-OP-K Range of Motion Start: 08/07/20 09:45 Freq: Status: Active Protocol: Document 12/12/20 09:49 [facility] (Rec: 12/12/20 10:50 [facility] [id number]) Lumbar Spine Range of Motion Lumbar Spine Active Degrees Flexion 45 Extension 18 Rotation Left 46 Rotation Right 44 Lateral Flexion Left 16 Lateral Flexion Right 21 ROM Limitations Pain PT-OP-L Special Tests Start: 08/07/20 09:45 Freq: Status: Active Protocol: Document 08/21/20 10:02 [facility] (Rec: 08/21/20 12:07 [facility] [id number]) Special Tests Lumbar Spine Special Tests Slump Test Results positive B PT-OP-M Strength Start: 08/07/20 09:45 Freq: Status: Active Protocol: Document 12/12/20 09:49 [facility] (Rec: 12/12/20 10:50 [facility] [id number]) Hip Strength Hip Manual Muscle Testing Right Flexion (L2) 4 Good Extension (S1) 3+ Fair+ Abduction 4- Good- Adduction 4- Good- External Rotation 4- Good- Internal Rotation 4+ Good+ Left Flexion (L2) 4 Good Extension (S1) 3+ Fair+ Abduction 4- Good- Adduction 4 Good External Rotation 4 Good Internal Rotation 4+ Good+ Knee Strength Knee Manual Muscle Testing Right Flexion (S2) 4+ Good+ Extension (L3) 4+ Good+ Left Flexion (S2) 4+ Good+ Extension (L3) 4+ Good+ Ankle/Foot Strength Ankle and Foot Manual Muscle Testing Right Dorsiflexion (L4) 5 Normal Plantarflexion (S1) 5 Normal Comments 20 heel raises Left Dorsiflexion (L4) 5 Normal Plantarflexion (S1) 5 Normal PT-OP-Q Treatments Start: 08/07/20 09:45 Freq: Status: Active Protocol: Document 01/10/21 16:51 [facility] (Rec: 01/10/21 17:18 [facility] [id number]) Therapeutic Activity Therapeutic Activity posture Name standing posture cues for dec kyphosis & scap retract lifting Name tactile and VC heavily Comments 1. work on hip hinge in seated and progress to standing 2. work on squat w/dowel 3. squat w/o dowel 4. squat to picker feeder object ( used empty box then progressed to w/10#) Self-Care/Home Management Treatment Education Other Education edu on spinal alignment importance and why it is important w/lifting. Edu re: why his posture is important and how that makes him stronger and more stable PT-OP-R Modalities Start: 08/07/20 09:45 Freq: Status: Active Protocol: Document 09/10/20 10:24 [facility] (Rec: 09/10/20 10:58 [facility] [id number]) Hot Pack/Cold Pack Treatment Hot Pack Location lumbar Patient Position Hooklying Treatment Duration (minutes) 15 PT-OP-T Assessment and Plan Start: 08/07/20 09:45 Freq: Status: Active Protocol: Document 01/10/21 16:51 [facility] (Rec: 01/10/21 17:18 [facility] [id number]) Physical Therapy Assessment Goals posture Short Term Goal (STG) Pt will show improvement in postural alignment by inc of VCT to 3/5. 09/25-05/25 STG Duration achieved Alf Goal (LTG) Pt will show imrpoved postural alignment and staiblity in order to show improved ability to lift without inc pain by improvement of EFT to at least 3/5. 12/12-04/24 LTG Duration 03/12/21 strength Short Term Goal (STG) Pt will be indep w/HEP STG Duration achieved System Planning Engineer Goal (LTG) Pt will improve LE strength to at least 4+/5 in all planes and LPM to at least 3/5 to show improved stability in order to inc pt's ability to participate in ADLs. 09/25 improved 10/17-improving 12/12-min change LPM 2/5 LTG Duration 03/12/21 activities Short Term Goal (STG) Pt will have improved range of motion of hip and lumbar spine in order to allow ease w /donning/doffing socks. 09/26 still some difficulty 10/17 no change 12/12-some improvement w/range but still difficulty noted STG Duration achieved System Planning Engineer Goal (LTG) Pt will return to being able to do at least 30 min of activity (biking or walking) without increased pain. 09/26-bikes to post office and back about 10-20 min LTG Duration achieved MANUEL Impairment 28/50 Short Term Goal (STG) Pt will improve MANUEL score to no more than 21/50 to show improved function. STG Duration achieved to 15/50 System Planning Engineer Goal (LTG) Pt will improve MANUEL score to no more than 10/50 to show improved function. 12/12- LTG Duration 03/12 Assessment Summary Assessment Wrong date written in POC so new POC wrtiten. He is making slow progress partly d/t pt has not come to appt since . Shows imrpoved ability to reach his feet for shoes today w/less difficulty. He has significant spinal flex w/all lifting or picking up of objets and requries max cueing to avoid this. He requires further PT to cont to work on this as he is currently doing a lot of lifting and required the full session for this skill with cues still needed at end of session. Physical Therapy Plan Frequency and Duration Frequency of Treatment 1x/Week Duration of Treatment 2 months Plan of Care Start Date 01/10/21 Plan of Care End Date 03/12/21 Therapeutic Interventions Therapeutic Interventions Aquatic Therapy,Balance Training,Gait Training,Home Exercise Program,Manual Therapy,Neuromuscular Re- education,Patient/Caregiver Education,Self-Care/Home Management,Soft Tissue Mobilization,Taping, Therapeutic Activities, Therapeutic Exercises Modalities Cold Pack/Ice Massage,Hot Packs Next Visit Focus/Plan Next Note Type Treatment Note Next Visit Plan work on lifting mechanics and cont to review hip hinge and squat ability
--- NOTE | 2021-01-10 17:18 | PT.OPPOC ---
Physical, Occupational & Speech Therapy At [facility] Current Diagnoses Low back pain (01/10/21) Difficulty in walking, not elsewhere classified (01/10/21) Abnormal posture (01/10/21) Weakness (01/10/21) Visit Care Team Role Provider Type Avila Oliveira MD Attending Provider Physician Primary Care Provider Referring Provider Specialty: Internal Medicine Address: [address] [place] [address], [facility] Email: [email or web address] Plan Of Care PT-OP-T Assessment and Plan Start: 08/07/20 09:45 Freq: Status: Active Protocol: Document 01/10/21 16:51 [facility] (Rec: 01/10/21 17:18 [facility] [id number]) Physical Therapy Assessment Goals posture Short Term Goal (STG) Pt will show improvement in postural alignment by inc of VCT to 3/5. 09/25-05/25 STG Duration achieved Usp Goal (LTG) Pt will show imrpoved postural alignment and staiblity in order to show improved ability to lift without inc pain by improvement of EFT to at least 3/5. 12/12-04/24 LTG Duration 03/12/21 strength Short Term Goal (STG) Pt will be indep w/HEP STG Duration achieved Usp Goal (LTG) Pt will improve LE strength to at least 4+/5 in all planes and LPM to at least 3/5 to show improved stability in order to inc pt's ability to participate in ADLs. 09/25 improved 10/17-improving 12/12-min change LPM / LTG Duration 03/12/21 activities Short Term Goal (STG) Pt will have improved range of motion of hip and lumbar spine in order to allow ease w /donning/doffing socks. 09/26 still some difficulty 10/17 no change 12/12-some improvement w/range but still difficulty noted STG Duration achieved Usp Goal (LTG) Pt will return to being able to do at least 30 min of activity (biking or walking) without increased pain. 09/26-bikes to post office and back about 10-20 min LTG Duration achieved MANUEL Impairment 28/50 Short Term Goal (STG) Pt will improve MANUEL score to no more than 21/50 to show improved function. STG Duration achieved to 15/50 Clarification Operator Goal (LTG) Pt will improve MANUEL score to no more than 10/50 to show improved function. 12/12- LTG Duration 03/12 Assessment Summary Assessment Wrong date written in POC so new POC wrtiten. He is making slow progress partly d/t pt has not come to appt since . Shows imrpoved ability to reach his feet for shoes today w/less difficulty. He has significant spinal flex w/all lifting or picking up of objets and requries max cueing to avoid this. He requires further PT to cont to work on this as he is currently doing a lot of lifting and required the full session for this skill with cues still needed at end of session. Physical Therapy Plan Frequency and Duration Frequency of Treatment 1x/Week Duration of Treatment 2 months Plan of Care Start Date 01/10/21 Plan of Care End Date 03/12/21 Therapeutic Interventions Therapeutic Interventions Aquatic Therapy,Balance Training,Gait Training,Home Exercise Program,Manual Therapy,Neuromuscular Re- education,Patient/Caregiver Education,Self-Care/Home Management,Soft Tissue Mobilization,Taping, Therapeutic Activities, Therapeutic Exercises Modalities Cold Pack/Ice Massage,Hot Packs Next Visit Focus/Plan Next Note Type Treatment Note Next Visit Plan work on lifting mechanics and cont to review hip hinge and squat ability Plan of Care Dates Plan of Care Start Date 01/10/21 Plan of Care End Date 03/12/21 Electronically Signed by: Jazz Powell, PT 01/10/21 9432 Please Sign and Return: I have reviewed this Plan of Care and certify that the skilled therapy services above are required to meet the patient?s needs. Physician Signature Date Printed Name and Credentials Clinical Instructor Signature Printed Name and Credentials
--- NOTE | 2021-01-31 09:48 | PT.OTN ---
Current Diagnoses Low back pain (01/31/21) Difficulty in walking, not elsewhere classified (01/31/21) Abnormal posture (01/31/21) Weakness (01/31/21) Physical Therapy Treatment Note PT-OP-A Visit Information Start: 08/07/20 09:45 Freq: Status: Active Protocol: Document 01/31/21 09:03 [facility] (Rec: 01/31/21 09:48 [facility] [id number]) Out-Patient Physical Therapy Visit Information Visit Information Visit Type Treatment Note Visit Note 05/30 Visit Start Time 09:03 Visit Stop Time 09:41 Total Visit Minutes 38 Visit Number 27 Number of TIRE RECAPPING MACHINE OPERATOR Visits 0 PT-OP-B Current Condition Start: 08/07/20 09:45 Freq: Status: Active Protocol: Document 08/21/20 10:02 [facility] (Rec: 08/21/20 12:07 [facility] [id number]) Current Condition History of Current Condition Onset Date May 30, 2017 Current Complaints LBP History of Current Condition 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 On admitted to ICU for anxiety, depression and overflow of fluids and CARDONA on Apr 14, 2019 and spent 5 days there then did rehab at [facility] for 18 days. He has been seeing mult MDs since then (pre k teacher, Dr. Terrell- exercise manager, now Dr. Oliveira, then Dr. Aguirre-Oncologolist, and another Oncologist in [facility]). He was told he messed up his bladder and kidneys. On August he was referred to [facility] until a month ago, he transferred care here for PT. He is going to see Pain management MD on September 24. He saw an Ortho surgeon and did a MRI of back which saw compressed disc. L&I wants him to go to [facility] to see MD. Pt notes he is having to work with attornies d/t his prior employer denying him working there. Employer now is finally saying he did work there. Pt is supposed to see ortho in [facility] September 23 but they have cancelled this last min 8 times already. Pt reports post neck pain comes and goes and has pain into shoulders and B upper arms. he notes he has trouble in his back even bending over to get to get to socks/shoes. Pt reprots getting exhausted a lot. Back can get so painful with lifting that he can barely move after. Pt reprots MDs are unsure if he has prostate cancer but are treating him w/ meds. He is on a lot of meds for his heart. Pt reprots he is taking an injection. 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 He has been very depressed since this injury d/t dec activity tolerance. [place], and [place]. Prior Treatments and Tests PT-neck pain in the beginning then more recently back pain - only 2 sessions for back Treatment Goals Patient/Caregiver Goals Be able to put on socks/shoes easier PT-OP-C Subjective Start: 08/07/20 09:45 Freq: Status: Active Protocol: Document 01/31/21 09:03 [facility] (Rec: 01/31/21 09:48 [facility] [id number]) OP-PT Subjective Patient Comments Patient Comments Pt reports back is sore, probably from loading/ unloading bike on jeep PT-OP-F Manual Assessment Start: 08/07/20 09:45 Freq: Status: Active Protocol: Document 08/21/20 10:02 [facility] (Rec: 08/21/20 12:07 [facility] [id number]) Manual Assessments Soft Tissue Assessment Soft Tissue Mobility Assessment tight B QL & ES Joint Mobility Assessment Joint Mobility Assessment L iliac crest higher PT-OP-G Mobility & Gait Start: 08/07/20 09:45 Freq: Status: Active Protocol: Document 08/21/20 10:02 [facility] (Rec: 08/21/20 12:07 [facility] [id number]) OP Mobility Evaluation Bed Mobility Rolling scooches to roll-notes some abdomenal pain OP Gait Assessment Comments Gait Comments fwd leaned and lat shifts, dec push off PT-OP-J Posture/Palpation/Skin Start: 08/07/20 09:45 Freq: Status: Active Protocol: Document 10/17/20 16:05 [facility] (Rec: 10/17/20 16:42 [facility] [id number]) Posture Evaluation Bronson Postural Classification System Vertebral Compression Test 3 Elbow Flexion Test 2 Lumbar Protective Mechanism Left AP 2 Lumbar Protective Mechanism Right AP 2 Lumbar Protective Mechanism Left PA 2 Lumbar Protective Mechanism Right PA 0 PT-OP-K Range of Motion Start: 08/07/20 09:45 Freq: Status: Active Protocol: Document 12/12/20 09:49 [facility] (Rec: 12/12/20 10:50 [facility] [id number]) Lumbar Spine Range of Motion Lumbar Spine Active Degrees Flexion 45 Extension 18 Rotation Left 46 Rotation Right 44 Lateral Flexion Left 16 Lateral Flexion Right 21 ROM Limitations Pain PT-OP-L Special Tests Start: 08/07/20 09:45 Freq: Status: Active Protocol: Document 08/21/20 10:02 [facility] (Rec: 08/21/20 12:07 [facility] [id number]) Special Tests Lumbar Spine Special Tests Slump Test Results positive B PT-OP-M Strength Start: 08/07/20 09:45 Freq: Status: Active Protocol: Document 12/12/20 09:49 [facility] (Rec: 12/12/20 10:50 [facility] [id number]) Hip Strength Hip Manual Muscle Testing Right Flexion (L2) 4 Good Extension (S1) 3+ Fair+ Abduction 4- Good- Adduction 4- Good- External Rotation 4- Good- Internal Rotation 4+ Good+ Left Flexion (L2) 4 Good Extension (S1) 3+ Fair+ Abduction 4- Good- Adduction 4 Good External Rotation 4 Good Internal Rotation 4+ Good+ Knee Strength Knee Manual Muscle Testing Right Flexion (S2) 4+ Good+ Extension (L3) 4+ Good+ Left Flexion (S2) 4+ Good+ Extension (L3) 4+ Good+ Ankle/Foot Strength Ankle and Foot Manual Muscle Testing Right Dorsiflexion (L4) 5 Normal Plantarflexion (S1) 5 Normal Comments 20 heel raises Left Dorsiflexion (L4) 5 Normal Plantarflexion (S1) 5 Normal PT-OP-Q Treatments Start: 08/07/20 09:45 Freq: Status: Active Protocol: Document 01/31/21 09:03 [facility] (Rec: 01/31/21 09:48 [facility] [id number]) Therapeutic Exercises Supine Exercises pelvic tilt Supine Exercise Name w/holds Side bilateral Reps/Minutes 1x10 Comments 5 sec holds, mod cue w/tactial and visual cues bridge Supine Exercise Name w/holds Side bilateral Reps/Minutes 1x8 Comments 10 sec holds Standing Exercises wall posture Standing Exercise Name w/B shoulder ext Side bilateral Reps/Minutes mult reps to get set then 1 min hold Comments focus on lumbar spine against wall Other Exercises cat/camel Other Exercise Name continuous movement, no holds Side bilateral Reps/Minutes 1x12 Comments mod cueing for elbows straight , pelvic tilt, head position, tactial cues quadruped Other Exercise Name alt hip ext Side bilateral Reps/Minutes 1x15 Comments mod cueing for not rotating torso, tactial cue on low back Therapeutic Activity Therapeutic Activity posture Name standing posture cues for dec kyphosis & scap retract lifting Name tactile and VC heavily Comments 1.hip hinge w/dowel 2. work on squat w/dowel 3. squat w/o dowel 4. squat to citrus picker object ( used empty box then progressed to w/10#) PT-OP-R Modalities Start: 08/07/20 09:45 Freq: Status: Active Protocol: Document 09/10/20 10:24 MA (Rec: 09/10/20 10:58 MA [id number]) Hot Pack/Cold Pack Treatment Hot Pack Location lumbar Patient Position Hooklying Treatment Duration (minutes) 15 PT-OP-T Assessment and Plan Start: 08/07/20 09:45 Freq: Status: Active Protocol: Document 01/31/21 09:03 [facility] (Rec: 01/31/21 09:48 [facility] [id number]) Physical Therapy Assessment Goals posture Short Term Goal (STG) Pt will show improvement in postural alignment by inc of VCT to 3/5. 6-25 STG Duration achieved Longterm Goal (LTG) Pt will show imrpoved postural alignment and staiblity in order to show improved ability to lift without inc pain by improvement of EFT to at least 3/5. 12/12-1/5 LTG Duration 03/12/21 strength Short Term Goal (STG) Pt will be indep w/HEP STG Duration achieved Passenger Service Manager Goal (LTG) Pt will improve LE strength to at least 4+/5 in all planes and LPM to at least 3/5 to show improved stability in order to inc pt's ability to participate in ADLs. 6/8 improved 10/17-improving 12/12-min change LPM 2/5 LTG Duration 03/12/21 activities Short Term Goal (STG) Pt will have improved range of motion of hip and lumbar spine in order to allow ease w /donning/doffing socks. 09/26 still some difficulty 10/17 no change 12/12-some improvement w/range but still difficulty noted STG Duration achieved Longterm Goal (LTG) Pt will return to being able to do at least 30 min of activity (biking or walking) without increased pain. 09/26-bikes to post office and back about 10-20 min LTG Duration achieved MANUEL Impairment 28/50 Short Term Goal (STG) Pt will improve MANUEL score to no more than 21/50 to show improved function. STG Duration achieved to 15 Longterm Goal (LTG) Pt will improve MANUEL score to no more than 10/50 to show improved function. 12/12- LTG Duration 03/12 Assessment Summary Assessment Pt requires significant cues with lifting to start in good posture otherwise he starts to get spinal flex early in his lift. He did improve by end of working on lifting provided the therapist reminded him to check his posture prior to lifting. He requires max cues w/exercises still though except bridges. Physical Therapy Plan Frequency and Duration Frequency of Treatment 1x/Week Duration of Treatment 2 months Plan of Care Start Date 01/10/21 Plan of Care End Date 03/12/21 Next Visit Focus/Plan Next Note Type Treatment Note Next Visit Plan work on lifting mechanics and cont to review hip hinge and squat ability & core activity
--- NOTE | 2021-02-08 09:48 | PT.OTN ---
Current Diagnoses Low back pain (02/08/21) Difficulty in walking, not elsewhere classified (02/08/21) Abnormal posture (02/08/21) Weakness (02/08/21) Physical Therapy Treatment Note PT-OP-A Visit Information Start: 08/07/20 09:45 Freq: Status: Active Protocol: Document 02/08/21 08:59 SP (Rec: 02/08/21 10:09 SP [id number]) Out-Patient Physical Therapy Visit Information Visit Information Visit Type Treatment Note Visit Note 06/27 Visit Start Time 09:00 Visit Stop Time 09:48 Total Visit Minutes 48 Visit Number 28 Number of LITERATURE PROFESSOR Visits 1 PT-OP-B Current Condition Start: 08/07/20 09:45 Freq: Status: Active Protocol: Document 08/21/20 10:02 [facility] (Rec: 08/21/20 12:07 [facility] [id number]) Current Condition History of Current Condition Onset Date May 30, 2017 Current Complaints LBP History of Current Condition 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 On admitted to ICU for anxiety, depression and overflow of fluids and CARDONA on Apr 14, 2019 and spent 5 days there then did rehab at [facility] for 18 days. He has been seeing mult MDs since then (developer evangelist, Dr. Terrell- rn concurrent review, now Dr. Oliveira, then Dr. Aguirre-Oncologolist, and another Oncologist in [facility]). He was told he messed up his bladder and kidneys. On August he was referred to IRG until a month ago, he transferred care here for PT. He is going to see Pain management MD on September 24. He saw an Ortho surgeon and did a MRI of back which saw compressed disc. L&I wants him to go to [facility] to see MD. Pt notes he is having to work with attornies d/t his prior employer denying him working there. Employer now is finally saying he did work there. Pt is supposed to see ortho in [facility] September 23 but they have cancelled this last min 8 times already. Pt reports post neck pain comes and goes and has pain into shoulders and B upper arms. he notes he has trouble in his back even bending over to get to get to socks/shoes. Pt reprots getting exhausted a lot. Back can get so painful with lifting that he can barely move after. Pt reprots MDs are unsure if he has prostate cancer but are treating him w/ meds. He is on a lot of meds for his heart. Pt reprots he is taking an injection. 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 He has been very depressed since this injury d/t dec activity tolerance. [place], and [place]. Prior Treatments and Tests PT-neck pain in the beginning then more recently back pain - only 2 sessions for back Treatment Goals Patient/Caregiver Goals Be able to put on socks/shoes easier PT-OP-C Subjective Start: 08/07/20 09:45 Freq: Status: Active Protocol: Document 02/08/21 08:59 SP (Rec: 02/08/21 10:09 SP [id number]) OP-PT Subjective Patient Comments Patient Comments Pt reports sore over posterior L scap and upper lumbar across both sides. Was working on the his boat the past week putting in electric and plumbing in close spaces leaned forward, off to R and reaching out in front with noted increased back irritation. Pt states riding his electric bike with 50-75% assist (sport mode) and finds it helps his back decreased pain. Pt states still has difficulty putting on his socks, proper foot on stool and tosses the sock over foot . Patient Reported Progress Improving PT-OP-F Manual Assessment Start: 08/07/20 09:45 Freq: Status: Active Protocol: Document 08/21/20 10:02 [facility] (Rec: 08/21/20 12:07 [facility] [id number]) Manual Assessments Soft Tissue Assessment Soft Tissue Mobility Assessment tight B QL & ES Joint Mobility Assessment Joint Mobility Assessment L iliac crest higher PT-OP-G Mobility & Gait Start: 08/07/20 09:45 Freq: Status: Active Protocol: Document 08/21/20 10:02 [facility] (Rec: 08/21/20 12:07 [facility] [id number]) OP Mobility Evaluation Bed Mobility Rolling scooches to roll-notes some abdomenal pain OP Gait Assessment Comments Gait Comments fwd leaned and lat shifts, dec push off PT-OP-J Posture/Palpation/Skin Start: 08/07/20 09:45 Freq: Status: Active Protocol: Document 10/17/20 16:05 [facility] (Rec: 10/17/20 16:42 [facility] [id number]) Posture Evaluation Bronson Postural Classification System Vertebral Compression Test 3 Elbow Flexion Test 2 Lumbar Protective Mechanism Left AP 2 Lumbar Protective Mechanism Right AP 2 Lumbar Protective Mechanism Left PA 2 Lumbar Protective Mechanism Right PA 0 PT-OP-K Range of Motion Start: 08/07/20 09:45 Freq: Status: Active Protocol: Document 12/12/20 09:49 [facility] (Rec: 12/12/20 10:50 [facility] [id number]) Lumbar Spine Range of Motion Lumbar Spine Active Degrees Flexion 45 Extension 18 Rotation Left 46 Rotation Right 44 Lateral Flexion Left 16 Lateral Flexion Right 21 ROM Limitations Pain PT-OP-L Special Tests Start: 08/07/20 09:45 Freq: Status: Active Protocol: Document 08/21/20 10:02 [facility] (Rec: 08/21/20 12:07 [facility] [id number]) Special Tests Lumbar Spine Special Tests Slump Test Results positive B PT-OP-M Strength Start: 08/07/20 09:45 Freq: Status: Active Protocol: Document 12/12/20 09:49 [facility] (Rec: 12/12/20 10:50 [facility] [id number]) Hip Strength Hip Manual Muscle Testing Right Flexion (L2) 4 Good Extension (S1) 3+ Fair+ Abduction 4- Good- Adduction 4- Good- External Rotation 4- Good- Internal Rotation 4+ Good+ Left Flexion (L2) 4 Good Extension (S1) 3+ Fair+ Abduction 4- Good- Adduction 4 Good External Rotation 4 Good Internal Rotation 4+ Good+ Knee Strength Knee Manual Muscle Testing Right Flexion (S2) 4+ Good+ Extension (L3) 4+ Good+ Left Flexion (S2) 4+ Good+ Extension (L3) 4+ Good+ Ankle/Foot Strength Ankle and Foot Manual Muscle Testing Right Dorsiflexion (L4) 5 Normal Plantarflexion (S1) 5 Normal Comments 20 heel raises Left Dorsiflexion (L4) 5 Normal Plantarflexion (S1) 5 Normal PT-OP-Q Treatments Start: 08/07/20 09:45 Freq: Status: Active Protocol: Document 02/08/21 08:59 SP (Rec: 02/08/21 10:09 SP [id number]) Cardio Equipment Bicycle (Upright) Duration (Minutes) 8 Resistance 15 Seat Position 6 Other cues maintain 50 RPMs, 2 miles - good pelvic and knee alignment level Therapeutic Exercises Supine Exercises LTR Supine Exercise Name w/ TA Side bilateral Reps/Minutes x8 r and L Comments good feedback response- painfree- intermittent cues TA pirformis stretch Supine Exercise Name 1. knee opposite chest 2. DKTC Side bilateral Reps/Minutes 45 sec ea flex Supine Exercise Name 1. SKTC w/opp quad set 2. DKTC Side bilateral Reps/Minutes 30 sec ea Comments reviewed HEP- good performance pelvic tilt Supine Exercise Name w/holds- pre bridges Side bilateral Reps/Minutes 1x10 Comments 5 sec holds, mod cue w/tactial and visual cues bridge Supine Exercise Name w/holds Side bilateral Reps/Minutes 1x8 Comments 10 sec holds Standing Exercises self STMs Standing Exercise Name rhomboids, paraspinals Side left Equipment Used tennis ball in sleeve roll Rhomboid & paraspinals Reps/Minutes 1 min total Comments good feedback results ( provided sleeve for ball for home) wall posture Standing Exercise Name w/B shoulder ext, no UT recruitment Side bilateral Reps/Minutes mult reps to get set then 1 min hold Comments focus on lumbar spine against wall Other Exercises cat/camel Other Exercise Name continuous movement, no holds Side bilateral Reps/Minutes 1x12 Comments mod cueing for elbows straight , pelvic tilt, head position, max/ tact cues jess pose Reps/Minutes 1 min Comments cued sit back with wide GINO Self-Care/Home Management Treatment Education Patient Education Body Mechanics,Home Exercise Program,Pain Management, Posture Other Education Extra time spent on neutral pelvis and TA facilitation for HEP supine, quadruped, standing alignment and carryover to hip hinge squat lifting, needs max cuing for corrections, reports does help decrease LBP. PT-OP-R Modalities Start: 08/07/20 09:45 Freq: Status: Active Protocol: Document 09/10/20 10:24 MA (Rec: 09/10/20 10:58 MA [id number]) Hot Pack/Cold Pack Treatment Hot Pack Location lumbar Patient Position Hooklying Treatment Duration (minutes) 15 PT-OP-T Assessment and Plan Start: 08/07/20 09:45 Freq: Status: Active Protocol: Document 02/08/21 08:59 SP (Rec: 02/08/21 10:09 SP [id number]) Physical Therapy Assessment Goals posture Short Term Goal (STG) Pt will show improvement in postural alignment by inc of VCT to 3/5. 09/25-05/25 STG Duration achieved Senior Living Goal (LTG) Pt will show imrpoved postural alignment and staiblity in order to show improved ability to lift without inc pain by improvement of EFT to at least 3/5. 12/12-04/2402/08/21: continue require mod - Max cues for PPT/ TA facilitation postural alignment during HEP and hip hinge squat/ lifting mechanics for spinal stabilization and pain mgt. LTG Duration 03/12/21 strength Short Term Goal (STG) Pt will be indep w/HEP STG Duration achieved Electrical Products Sales Engineer Goal (LTG) Pt will improve LE strength to at least 4+/5 in all planes and LPM to at least 3/5 to show improved stability in order to inc pt's ability to participate in ADLs. 09/25 improved 10/17-improving 12/12-min change LPM 05/25 LTG Duration 03/12/21 activities Short Term Goal (STG) Pt will have improved range of motion of hip and lumbar spine in order to allow ease w /donning/doffing socks. 09/26 still some difficulty 10/17 no change 12/12-some improvement w/range but still difficulty noted STG Duration achieved Electrical Products Sales Engineer Goal (LTG) Pt will return to being able to do at least 30 min of activity (biking or walking) without increased pain. 09/26-bikes to post office and back about 10-20 min LTG Duration achieved MANUEL Impairment 28/50 Short Term Goal (STG) Pt will improve MANUEL score to no more than 21/50 to show improved function. STG Duration achieved to 15 Electrical Products Sales Engineer Goal (LTG) Pt will improve MANUEL score to no more than 10/50 to show improved function. 12/12- LTG Duration 03/12 Assessment Summary Assessment Pt reports doesn't really perform HEP as instructed in PT, thus requiring more cuing for TA facilitation and postural alignment in all positions. Education for benefits performance HEP at home including body mechanics lifting straight back, hip hinge and carrying close to body not out in front to allow decreased LBP, also recommendation of decrease assist on electric bike and ed alignment upright posture to improve core/ LE strengthening . Initiated self STMs of racquetball/ tennis ball roll at wall to interscap and paraspinals with reported relief. Pt stated felt little better then when arrived. Physical Therapy Plan Frequency and Duration Frequency of Treatment 1x/Week Duration of Treatment 2 months Plan of Care Start Date 01/10/21 Plan of Care End Date 03/12/21 Therapeutic Interventions Therapeutic Interventions Aquatic Therapy,Balance Training,Gait Training,Home Exercise Program,Manual Therapy,Neuromuscular Re- education,Patient/Caregiver Education,Self-Care/Home Management,Soft Tissue Mobilization,Taping, Therapeutic Activities, Therapeutic Exercises Modalities Cold Pack/Ice Massage,Hot Packs Next Visit Focus/Plan Next Note Type Treatment Note Next Visit Plan Continue work on lifting mechanics and cont to review hip hinge and squat ability & core activity
--- NOTE | 2021-02-14 17:48 | PT.OTN ---
Current Diagnoses Low back pain (02/14/21) Difficulty in walking, not elsewhere classified (02/14/21) Abnormal posture (02/14/21) Weakness (02/14/21) Physical Therapy Treatment Note PT-OP-A Visit Information Start: 08/07/20 09:45 Freq: Status: Active Protocol: Document 02/14/21 16:41 [facility] (Rec: 02/14/21 17:48 [facility] [id number]) Out-Patient Physical Therapy Visit Information Visit Information Visit Type Discharge Summary Visit Start Time 16:45 Visit Stop Time 17:30 Total Visit Minutes 45 Visit Number 29 Number of PLATE CORRECTOR Visits 0 PT-OP-B Current Condition Start: 08/07/20 09:45 Freq: Status: Active Protocol: Document 08/21/20 10:02 [facility] (Rec: 08/21/20 12:07 [facility] [id number]) Current Condition History of Current Condition Onset Date May 30, 2017 Current Complaints LBP History of Current Condition Pt reports 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 On admitted to ICU for anxiety, depression and overflow of fluids and CARDONA on Apr 14, 2019 and spent 5 days there then did rehab at [facility] for 18 days. 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 Terrell- representative, now Dr. Oliveira, then Dr. Aguirre-Oncologolist, and another Oncologist in [facility]). He was told he messed up his bladder and kidneys. On August he was referred to [facility] until a month ago, he transferred care here for PT. He is going to see Pain management MD on September 24. He saw an Ortho surgeon and did a MRI of back which saw compressed disc. L&I wants him to go to [facility] to see MD. Pt notes he is having to work with attornies d/t his prior employer denying him working there. Employer now is finally saying he did work there. Pt is supposed to see ortho in [facility] September 23 but they have cancelled this last min 8 times already. Pt reports post neck pain comes and goes and has pain into shoulders and B upper arms. he notes he has trouble in his back even bending over to get to get to socks/shoes. Pt reprots getting exhausted a lot. Back can get so painful with lifting that he can barely move after. Pt reprots MDs are unsure if he has prostate cancer but are treating him w/ meds. He is on a lot of meds for his heart. Pt reprots he is taking an injection. 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 He has been very depressed since this injury d/t dec activity tolerance. [place], [place]. Prior Treatments and Tests PT-neck pain in the beginning then more recently back pain - only 2 sessions for back Treatment Goals Patient/Caregiver Goals Be able to put on socks/shoes easier PT-OP-C Subjective Start: 08/07/20 09:45 Freq: Status: Active Protocol: Document 02/14/21 16:41 [facility] (Rec: 02/14/21 17:48 [facility] [id number]) OP-PT Subjective Patient Comments Patient Comments Pt reports back still hurts. Notes he hasn't walked or rode his bike much d/t the weather . Notes he has been working on his lifting technique PT-OP-F Manual Assessment Start: 08/07/20 09:45 Freq: Status: Active Protocol: Document 08/21/20 10:02 [facility] (Rec: 08/21/20 12:07 [facility] [id number]) Manual Assessments Soft Tissue Assessment Soft Tissue Mobility Assessment tight B QL & ES Joint Mobility Assessment Joint Mobility Assessment L iliac crest higher PT-OP-G Mobility & Gait Start: 08/07/20 09:45 Freq: Status: Active Protocol: Document 08/21/20 10:02 [facility] (Rec: 08/21/20 12:07 [facility] [id number]) OP Mobility Evaluation Bed Mobility Rolling scooches to roll-notes some abdomenal pain OP Gait Assessment Comments Gait Comments fwd leaned and lat shifts, dec push off PT-OP-J Posture/Palpation/Skin Start: 08/07/20 09:45 Freq: Status: Active Protocol: Document 02/14/21 16:41 [facility] (Rec: 02/14/21 17:48 [facility] [id number]) Posture Evaluation [facility] Postural Classification System Lumbar Protective Mechanism Left AP 0 Lumbar Protective Mechanism Right AP 1 Lumbar Protective Mechanism Left PA 0 Lumbar Protective Mechanism Right PA 0 PT-OP-K Range of Motion Start: 08/07/20 09:45 Freq: Status: Active Protocol: Document 12/12/20 09:49 [facility] (Rec: 12/12/20 10:50 [facility] [id number]) Lumbar Spine Range of Motion Lumbar Spine Active Degrees Flexion 45 Extension 18 Rotation Left 46 Rotation Right 44 Lateral Flexion Left 16 Lateral Flexion Right 21 ROM Limitations Pain PT-OP-L Special Tests Start: 08/07/20 09:45 Freq: Status: Active Protocol: Document 08/21/20 10:02 [facility] (Rec: 08/21/20 12:07 [facility] [id number]) Special Tests Lumbar Spine Special Tests Slump Test Results positive B PT-OP-M Strength Start: 08/07/20 09:45 Freq: Status: Active Protocol: Document 02/14/21 16:41 [facility] (Rec: 02/14/21 17:48 [facility] [id number]) Hip Strength Hip Manual Muscle Testing Right Flexion (L2) 4- Good- Extension (S1) 3 Fair Abduction 4- Good- Adduction 3+ Fair+ External Rotation 4+ Good+ Internal Rotation 4+ Good+ Left Flexion (L2) 4- Good- Extension (S1) 3 Fair Abduction 4- Good- Adduction 3- Fair- External Rotation 4- Good- Internal Rotation 4- Good- Knee Strength Knee Manual Muscle Testing Right Flexion (S2) 4 Good Extension (L3) 4 Good Left Flexion (S2) 4 Good Extension (L3) 4 Good Ankle/Foot Strength Ankle and Foot Manual Muscle Testing Right Dorsiflexion (L4) 5 Normal Plantarflexion (S1) 5 Normal Comments 20 heel raises Left Dorsiflexion (L4) 5 Normal Plantarflexion (S1) 5 Normal PT-OP-Q Treatments Start: 08/07/20 09:45 Freq: Status: Active Protocol: Document 02/14/21 16:41 [facility] (Rec: 02/14/21 17:48 [facility] [id number]) Therapeutic Exercises Supine Exercises LTR Supine Exercise Name w/ TA Side bilateral Reps/Minutes 10 Comments good feedback response- painfree- intermittent cues TA pirformis stretch Supine Exercise Name 1. knee opposite chest 2. DKTC Side bilateral Reps/Minutes 30 sec ea bridge Supine Exercise Name w/holds Side bilateral Reps/Minutes 8 Comments 10 sec holds Standing Exercises wall posture Standing Exercise Name w/B shoulder ext, no UT recruitment Side bilateral Reps/Minutes 1 min hold Comments focus on lumbar spine against wall Self-Care/Home Management Treatment Education Patient Education Body Mechanics,Home Exercise Program,Pain Management, Posture Other Education Edu to discuss w/MD re: injections, seeing pain mangeement specialists and other specialties like acupuncture or massage. 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 edu re: discontinueing PT at this time d/t plateau PT-OP-R Modalities Start: 08/07/20 09:45 Freq: Status: Active Protocol: Document 09/10/20 10:24 [facility] (Rec: 09/10/20 10:58 [facility] [id number]) Hot Pack/Cold Pack Treatment Hot Pack Location lumbar Patient Position Hooklying Treatment Duration (minutes) 15 PT-OP-T Assessment and Plan Start: 08/07/20 09:45 Freq: Status: Active Protocol: Document 02/14/21 16:41 [facility] (Rec: 02/14/21 17:48 [facility] [id number]) Physical Therapy Assessment Goals posture Short Term Goal (STG) Pt will show improvement in postural alignment by inc of VCT to 3/5. 09/25-25 STG Duration achieved Nursing Home Goal (LTG) Pt will show imrpoved postural alignment and staiblity in order to show improved ability to lift without inc pain by improvement of EFT to at least 3/5. 12/12-102/08/21: continue require mod - Max cues for PPT/ TA facilitation postural alignment during HEP and hip hinge squat/ lifting mechanics for spinal stabilization and pain mgt. LTG Duration max cueing still requied strength Short Term Goal (STG) Pt will be indep w/HEP STG Duration achieved Nursing Home Goal (LTG) Pt will improve LE strength to at least 4+/5 in all planes and LPM to at least 3/5 to show improved stability in order to inc pt's ability to participate in ADLs. 68 improved 10/17-improving 12/12-min change LPM 05/25 LTG Duration no change; some worse activities Short Term Goal (STG) Pt will have improved range of motion of hip and lumbar spine in order to allow ease w /donning/doffing socks. 09/26 still some difficulty 10/17 no change 12/12-some improvement w/range but still difficulty noted STG Duration achieved Nursing Home Goal (LTG) Pt will return to being able to do at least 30 min of activity (biking or walking) without increased pain. 09/26-bikes to post office and back about 10-20 min LTG Duration achieved MANUEL Impairment 28/50 Short Term Goal (STG) Pt will improve MANUEL score to no more than 21/50 to show improved function. STG Duration achieved to 15/50 Nursing Home Goal (LTG) Pt will improve MANUEL score to no more than 10/50 to show improved function. 12/12- LTG Duration worse today to 23/50 Assessment Summary Assessment Pt has made limited progress over past couple months with PT and at this time pt is unable list activities that cause pain and just notes a general LBP. He made good progress early on in PT but has now been seen for 29 visits and is no longer progressing so is to DC PT today. He is encouraged to do HEP in order to maintain strength and cont walking along w/bike riding, but pt still requires cues for HEP exercises except hip stretches . He still reuqires cues for lifting despite signficiant education over past couple months. Today MANUEL score was worse than last time tested. At this time, no further PT is indicated. Physical Therapy Plan Discharge Physical Therapy Discharge Reasons Plateau in Progress
== END 2021-02-27 14:44 ==
LOC: PHYS 16:45
PROVIDERS: PCP Internal Medicine; Referring Provider Internal Medicine; Visit Provider Internal Medicine
DX: R53.1 Weakness (principal); R29.3 Abnormal posture; R26.2 Difficulty in walking, not elsewhere classified
CPT/HCPCS: 97010; 97110; 97112; 97140; 97162; 97530; 97535

== ENCOUNTER 2021-06-08 09:33 | Emergency (ER) | payer OTHER, MEDICAID, SELFPAY ==
[2019-04-14 18:42] VITALS: BMI 22.7
[2021-06-08] VITALS (7 sets, daily range): BP systolic 168–199; BP diastolic 81–99; PULSE 63–74; RESP 18–22; TEMP 36.7; O2SAT 94–99; BMI 25.8
--- NOTE | 2021-06-08 10:06 | ED.SKABFB ---
HPI - Skin/Abscess/Foreign Bdy General Chief complaint: Skin/Abscess/Foreign Body Stated complaint: infection on back of leg and head, sent from Time Seen by Provider: 06/08/21 10:06 Source: patient Mode of arrival: Ambulatory Limitations: no limitations History of Present Illness HPI narrative: This is a 70-year-old male comes with concerns for spots or infection on the back of his head and leg. Patient states that he stated a [employer] in [place] at the end of April and beginning of May. He visualized what he describes as fleas and that there was pet dog hair in the area and that was a [place] friendly hotel. He states that the room did also have some bugs in the light fixtures. He states that they had not change the sheets and had told him they had not when he was in the room. Patient states that the room had been cleaned by staff while he was in there. Patient states he had several spots on his head, arms and thighs most of them have healed or resolved but there is a small spot on the back of his head and right thigh that have not. He saw his primary care who recommended time. He states that the lesions on his thigh have not come close in seem a little bit bigger. He has not had fevers or chills. He denies any chest pain, shortness of breath, nausea vomiting or other changes. He does have a history of prostate cancer and is on Lupron injections. Patient was concerned as they have not resolved. He has been scratching them regularly and using iodine and peroxide on them daily. Related Data Home Medications Medication Instructions Recorded Confirmed losartan 25 mg tablet 25 mg PO DAILY 07/04/19 05/15/21 spironolactone 25 mg tablet 12.5 mg PO DAILY 07/04/19 05/15/21 bicalutamide 50 mg tablet (Casodex) 50 mg PO DAILY 07/20/19 05/15/21 leuprolide (3 month) 11.25 mg (3 11.25 mg IM [id number] 07/20/19 05/15/21 month) intramuscular syringe kit (Lupron Depot) metoprolol tartrate 100 mg tablet 100 mg PO BID 08/24/19 05/15/21 rosuvastatin 40 mg tablet 40 mg PO ONCE PM 12/21/19 05/15/21 Previous Rx's Medication Instructions Recorded aspirin 81 mg tablet,delayed 81 mg PO DAILY #30 tab 04/19/19 release enzalutamide 40 mg capsule 160 mg PO Q24H #120 cap 09/18/20 cyanocobalamin (vitamin B-12) 1,000 mcg PO DAILY #90 tab 09/25/20 1,000 mcg tablet ferrous sulfate 325 mg (65 mg 325 mg PO DAILY #90 tab 12/25/20 iron) tablet mupirocin 2 % topical ointment 1 applic TOPICAL BID 10 Days #15 g 06/08/21 ([facility]) Allergies Allergy/AdvReac Type Severity Reaction Status Date / Time No Known Drug Allergies Allergy Verified 11/22/20 09:52 Review of Systems Review of Systems ROS Unobtainable: All systems reviewed & are unremarkable except as noted in HPI and below Patient History Medical History Chronic kidney disease (CKD) Congestive heart failure Facet arthropathy, lumbar Herniated nucleus pulposus, lumbar Hyperlipidemia Hypertension No chronic problems Surgical History Hx of hand surgery (2001) Family History Father Stomach ulcer Social History marital status: unknown household members: none Smoking Status: Never smoker alcohol intake: former Smoking Status: Never smoker alcohol intake frequency: other Substance Use Type: does not use Exam Narrative Exam Narrative: GENERAL: Alert and oriented x three, elderly male in mild distress. HEENT: Head normocephalic, atraumatic, patient has 1 small lesion that appears to be healing on left posterior scalp. EOMI, pupils reactive, face symmetric, moist mucous membranes NECK: Supple, full range of motion CARDIOVASCULAR: Regular rate and rhythm without murmurs, rubs or gallops. RESPIRATORY: Breath sounds equal bilaterally, no wheezes rales or rhonchi. ABDOMEN: Soft, nontender. Normoactive bowel sounds all 4 quadrants. No guarding or rebound, rigidity, no mass : No CVA tenderness EXTREMITIES: Normal range of motion, no clubbing or edema. Neurovascularly intact NEUROLOGICAL: Cranial nerves II through XII grossly intact. Moving all extremities SKIN: Warm, dry, no petechiae, no rashes. Patient has 4 small excoriated lesions that are less than 0.5 cm in size which are scabbed but several have small wisp of fabric attached. There is a small amount of scab. There is a scant area of erythema along the edge of 1 but with no drainage, warmth or other changes. There is no swelling, warmth or induration otherwise. Initial Vital Signs Initial Vital Signs: Vital Signs Temperature 98.1 F 06/08/21 09:35 Pulse Rate 73 06/08/21 09:35 Respiratory Rate 18 06/08/21 09:35 Blood Pressure 199/99 H 06/08/21 09:35 Pulse Oximetry 99 06/08/21 09:35 Course Vital Signs Vital signs: Vital Signs - 8 hr 06/08/21 09:35 06/08/21 09:40 06/08/21 09:41 Temperature 98.1 F Pulse Rate 73 74 Respiratory Rate 18 Blood Pressure 199/99 H 199/99 H Pulse Oximetry 99 94 97 06/08/21 10:00 06/08/21 10:01 06/08/21 10:30 Temperature Pulse Rate 63 64 65 Respiratory Rate 19 21 22 Blood Pressure 168/81 H 187/89 H Pulse Oximetry 98 98 97 MDM - Skin/Abscess/Foreign Bdy MDM Narrative Medical decision making narrative: This is a pleasant 70-year-old male who has what was described as flea bites and had resolution of the majority of his lesions but for lesions in particular in the back of his thigh have not. Appears that he has been quite aggressive in his management and using hydrogen peroxide and iodine daily and washing and scrubbing it daily and picking at that. They do not appear particularly infected but feel appropriate would do some mupirocin topically. Avoid hydrogen peroxide and I day and at this time and either using Band-Aids or as needed antihistamines for itching to allow the area to heal properly. Discharge Plan Departure Patient Disposition: Home Clinical Impression: Flea bite of multiple sites Activity Restrictions/Additional Instructions: You appear to have a very small area of irritation or infection the edge of the flea bites on your lower extremity. Keeping the area clean and dry and not itching or scratching it will help this area to heal. You may use Benadryl 1-2 tablets every 6 hours as needed for itching. I would recommend placing a bandage or Band-Aid over the areas if you continue to scratch at them. Use topical antibiotics twice daily. Prescription sent to [facility]. Wound Care: Keep wound(s) clean and dry. Wash daily with soap and water only. Do not use over the counter products (alcohol or peroxide)on the wounds unless instructed by a physician. If wound condition worsens (increased/expanding redness, developing fluid blisters, or worsening pain), either contact your doctor for an urgent re-assessment , or return to the Emergency Department. Return if fever greater than 100.4 Fahrenheit, increased swelling, increasing pain or worsening symptoms such as increased discharge or spreading redness. Please return for fevers increasing redness, swelling, drainage or other new or concerning symptoms. Prescriptions: New mupirocin [Centany] 2 % ointment 1 applic topical BID 10 Days Qty: 15 0RF No Action metoprolol tartrate 100 mg tablet 100 mg PO BID 0RF bicalutamide [Casodex] 50 mg tablet 50 mg PO DAILY 0RF Lupron Depot (3 month) 11.25 mg syringe kit 11.25 mg IM [id number] 0RF spironolactone 25 mg Tablet 12.5 mg PO DAILY 0RF losartan 25 mg Tablet 25 mg PO DAILY 0RF rosuvastatin 40 mg Tablet 40 mg PO ONCE PM 0RF Rx Instructions: Take 1 tablet (40 mg total) by mouth nightly. Replaces atorvastatin. enzalutamide 40 mg Capsule 160 mg PO Q24H Qty: 120 5RF cyanocobalamin (vitamin B-12) 1,000 mcg Tablet 1,000 mcg PO DAILY Qty: 90 3RF ferrous sulfate 325 mg (65 mg iron) Tablet 325 mg PO DAILY Qty: 90 0RF aspirin 81 mg Tablet,Delayed Release (Dr/Ec) 81 mg PO DAILY Qty: 30 0RF Referrals: Mila Bautista MD [Primary Care Provider] -
== END 2021-06-08 10:50 | disposition home or self-care (01) ==
PROVIDERS: Emergency Provider Emergency Medicine; Family Provider Internal Medicine; PCP Internal Medicine
DX: S00.06XA Insect bite (nonvenomous) of scalp, initial encounter (principal); S70.362A Insect bite (nonvenomous), left thigh, initial encounter; S70.361A Insect bite (nonvenomous), right thigh, initial encounter; S40.862A Insect bite (nonvenomous) of left upper arm, initial encounter; S40.861A Insect bite (nonvenomous) of right upper arm, initial encounter; W57.XXXA Bitten or stung by nonvenomous insect and other nonvenomous arthropods, initial encounter
CPT/HCPCS: 99281

== ENCOUNTER 2021-07-11 11:15 | Outpatient (RCR) | payer MEDICARE, OTHER, MEDICAID, SELFPAY ==
[2019-04-14 18:42] VITALS: BMI 22.7
--- NOTE | 2021-06-11 11:14 | PT-OP ANOTE ---
Appt cancelled, no authorization for further appts at this time.
--- NOTE | 2021-06-11 11:15 | PT.OPPOC ---
Physical, Occupational & Speech Therapy At [facility] Current Diagnoses Stiffness of other specified joint, not elsewhere classified (06/11/21) Low back pain, unspecified (06/11/21) Visit Care Team Role Provider Type Mila Bautista MD Primary Care Provider Physician Specialty: Internal Medicine Address: [address] [place] [address] Email: [email or web address] Avila Oliveira MD Attending Provider Physician Family Provider Referring Provider Specialty: Internal Medicine Address: [address] [place] [address], [facility] Email: Plan Of Care PT-OP-T Assessment and Plan Start: 06/11/21 17:35 Freq: Status: Active Protocol: Document 06/11/21 10:35 [facility] (Rec: 06/11/21 17:52 [facility] [id number]) Physical Therapy Assessment Rehab Potential Rehabilitation Potential Fair Evaluation Complexity Number of Personal Factors/Comorbidities 1-2 Number of Body Systems Impaired 3 Clinical Presentation at Evaluation Unstable Impairments Impairments Activity Tolerance,Functional Activities,Functional Mobility ,Pain,ROM,Soft Tissue Mobility ,Strength,Tone Goals Two Impairment Pt experiences difficulty donning/doffing socks and shoes Resilient Tile Installer Goal (LTG) Pt to demonstrate ability to don/doff shoes with no pain in low back LTG Duration 08/09/21 One Impairment Pt does not have an appropriate home exercise program Short Term Goal (STG) Pt to be independent and compliant with an appropriate HEP STG Duration 07/09/21 Assessment Summary Assessment Pt presents with poorly defined low back pain, notes usually right is worse than left. Pt has notable increased tone bilaterally along thoracic and lumbar paraspinals, especially right QL. Pt demonstrating decreased lumbar and hip mobility, as well as worsening LE weakness. Pt should benefit from skilled therapy focusing mobility, strengthening, STM to decrease tone, and intensive HEP. Physical Therapy Plan Frequency and Duration Frequency of Treatment 2x/Week Duration of Treatment Two months Plan of Care Start Date 06/11/21 Plan of Care End Date 08/09/21 Therapeutic Interventions Therapeutic Interventions Aquatic Therapy,Gait Training, Home Exercise Program,Manual Therapy,Neuromuscular Re- education,Patient/Caregiver Education,Self-Care/Home Management,Soft Tissue Mobilization,Therapeutic Activities,Therapeutic Exercises Modalities Cold Pack/Ice Massage,Electric Stimulation,Hot Packs, Ultrasound Next Visit Focus/Plan Next Note Type Treatment Note Next Visit Plan STM, Stretching, strengthening Plan of Care Dates Plan of Care Start Date 06/11/21 Plan of Care End Date 08/09/21 Electronically Signed by: Shane Flynn, PT 06/12/21 0939 Please Sign and Return: I have reviewed this Plan of Care and certify that the skilled therapy services above are required to meet the patient?s needs. Physician Signature Date Printed Name and Credentials Clinical Instructor Signature Printed Name and Credentials
--- NOTE | 2021-06-11 11:15 | PT.OIE ---
Current Diagnoses Stiffness of other specified joint, not elsewhere classified (06/11/21) Low back pain, unspecified (06/11/21) Past Medical History (Last Reviewed 06/08/21 @ 10:43 by Radha Love DO) Chronic kidney disease (CKD) Congestive heart failure Facet arthropathy, lumbar Herniated nucleus pulposus, lumbar Hx of hand surgery (2001) Hyperlipidemia Hypertension No chronic problems Past Surgical History (Last Reviewed 06/08/21 @ 10:43 by Radha Love DO) Hx of hand surgery (2001) Visit Care Team Role Provider Type Mila Bautsita MD Primary Care Provider Physician Specialty: Internal Medicine Address: [address] [place] [address], [facility] Email: [email or web address] Avila Oliveira MD Attending Provider Physician Family Provider Referring Provider Specialty: Internal Medicine Address: [address] [place] [address], [facility] Email: [email or web address] Physical Therapy Initial Evaluation PT-OP-A Visit Information Start: 06/11/21 17:35 Freq: Status: Active Protocol: Document 06/11/21 10:35 DCW (Rec: 06/11/21 17:56 DCW [id number]) Out-Patient Physical Therapy Visit Information Visit Information Visit Type Initial Evaluation Visit Start Time 10:35 Visit Stop Time 11:15 Total Visit Minutes 40 Visit Number 1 Number of CERTIFIED FIRE INVESTIGATOR Visits 0 Evaluation Information Evaluation Date 06/11/21 PT-OP-B Current Condition Start: 06/11/21 17:35 Freq: Status: Active Protocol: Document 06/11/21 10:35 DCW (Rec: 06/12/21 09:38 DCW [id number]) Current Condition History of Current Condition Onset Date 05/30/17 Current Complaints Low back pain, stiffness History of Current Condition Pt is a 70 year old male presenting with a multi-year history of back pain. Pt fell off a truck at work on 05/30/17 , and over the past five years has had ongoing low back pain . 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 Pt is largely limited with bending over to don/doff his socks and shoes, perform toenail care, or cross his legs. Pt has undergone PT at this and various other clinic for this condition with varying levels of success. Pt also undergoing infusions in oncology at this time for treatment of prostate cancer. Medical history also includes CHF, CKD III, HTN. PT-OP-C Subjective Start: 06/11/21 17:35 Freq: Status: Active Protocol: Document 06/11/21 10:35 DCW (Rec: 06/11/21 17:56 DCW [id number]) OP-PT Subjective Patient Comments Patient Comments Pt notes increased right thigh pain recently after getting flea bites that became infected Patient Reported Progress Worse Patient Questionnaires Oswestry Low Back Index Oswestry Score 35/70 = 70% Oswestry Impairment 60 to 79% Impaired (Score 60- 79) OP-PT Pain Assessment Pain Assessment Grid Paper Pain Assessment Grid Completed Yes Location Lower Back Intensity 4 Scale Used Numeric (0 - 10) PT-OP-F Manual Assessment Start: 06/11/21 17:35 Freq: Status: Active Protocol: Document 06/11/21 10:35 DCW (Rec: 06/11/21 18:06 DCW [id number]) Manual Assessments Soft Tissue Assessment Soft Tissue Mobility Assessment Hypertonia and tenderness to palpation 3/4: wincing and withdraw along bilateral paraspinals, QL, Piriformis Joint Mobility Assessment Joint Mobility Assessment Lumbar vertebral hypomobility PT-OP-K Range of Motion Start: 06/11/21 17:35 Freq: Status: Active Protocol: Document 06/11/21 10:35 DCW (Rec: 06/11/21 18:06 DCW [id number]) Lumbar Spine Range of Motion Lumbar Spine Active Degrees Testing Position Standing Flexion 50 Extension 10 Lateral Flexion Left 58 Lateral Flexion Right 53 ROM Limitations Soft Tissue Tightness,Bony Restriction,Muscle Tone,Pain PT-OP-L Special Tests Start: 06/11/21 17:35 Freq: Status: Active Protocol: Document 06/11/21 10:35 DCW (Rec: 06/11/21 18:06 DCW [id number]) Special Tests Lumbar Spine Special Tests Arash Test Results Negative JUANIS Test Results Negative Straight Leg Raise Test Results Hamstring tightness, 30? R, 45 ? L Slump Test Results HS tightness Hip Special Tests Piriformis Test Results Negative PT-OP-M Strength Start: 06/11/21 17:35 Freq: Status: Active Protocol: Document 06/11/21 10:35 DCW (Rec: 06/11/21 18:06 DCW [id number]) Hip Strength Hip Manual Muscle Testing Right Flexion (L2) 3+ Fair+ Abduction 4- Good- Adduction 4- Good- External Rotation 3+ Fair+ Internal Rotation 4- Good- Left Flexion (L2) 4- Good- Abduction 4 Good Adduction 4 Good External Rotation 4- Good- Internal Rotation 4- Good- Knee Strength Knee Manual Muscle Testing Right Flexion (S2) 3+ Fair+ Extension (L3) 3+ Fair+ Left Flexion (S2) 4- Good- Extension (L3) 4 Good Ankle/Foot Strength Ankle and Foot Manual Muscle Testing Right Dorsiflexion (L4) 4 Good Plantarflexion (S1) 4 Good Left Dorsiflexion (L4) 4 Good Plantarflexion (S1) 4 Good PT-OP-T Assessment and Plan Start: 06/11/21 17:35 Freq: Status: Active Protocol: Document 06/11/21 10:35 DCW (Rec: 06/11/21 17:52 DCW [id number]) Physical Therapy Assessment Rehab Potential Rehabilitation Potential Fair Evaluation Complexity Number of Personal Factors/Comorbidities 1-2 Number of Body Systems Impaired 3 Clinical Presentation at Evaluation Unstable Impairments Impairments Activity Tolerance,Functional Activities,Functional Mobility ,Pain,ROM,Soft Tissue Mobility ,Strength,Tone Goals Two Impairment Pt experiences difficulty donning/doffing socks and shoes Long-Term Goal (LTG) Pt to demonstrate ability to don/doff shoes with no pain in low back LTG Duration 08/09/21 One Impairment Pt does not have an appropriate home exercise program Short Term Goal (STG) Pt to be independent and compliant with an appropriate HEP STG Duration 07/09/21 Assessment Summary Assessment Pt presents with poorly defined low back pain, notes usually right is worse than left. Pt has notable increased tone bilaterally along thoracic and lumbar paraspinals, especially right QL. Pt demonstrating decreased lumbar and hip mobility, as well as worsening LE weakness. Pt should benefit from skilled therapy focusing mobility, strengthening, STM to decrease tone, and intensive HEP. Physical Therapy Plan Frequency and Duration Frequency of Treatment 2x/Week Duration of Treatment Two months Plan of Care Start Date 06/11/21 Plan of Care End Date 08/09/21 Therapeutic Interventions Therapeutic Interventions Aquatic Therapy,Gait Training, Home Exercise Program,Manual Therapy,Neuromuscular Re- education,Patient/Caregiver Education,Self-Care/Home Management,Soft Tissue Mobilization,Therapeutic Activities,Therapeutic Exercises Modalities Cold Pack/Ice Massage,Electric Stimulation,Hot Packs, Ultrasound Next Visit Focus/Plan Next Note Type Treatment Note Next Visit Plan STM, Stretching, strengthening
--- NOTE | 2021-06-11 12:00 | PT-OP ANOTE ---
Appt cancelled, no authorization for further appts at this time.
--- NOTE | 2021-06-21 15:14 | PT.OTN ---
Current Diagnoses Stiffness of other specified joint, not elsewhere classified (06/21/21) Low back pain, unspecified (06/21/21) Physical Therapy Treatment Note PT-OP-A Visit Information Start: 06/11/21 17:35 Freq: Status: Active Protocol: Document 06/21/21 14:30 DCW (Rec: 06/21/21 15:13 DCW [id number]) Out-Patient Physical Therapy Visit Information Visit Information Visit Type Treatment Note Visit Start Time 14:30 Visit Stop Time 15:15 Total Visit Minutes 45 Visit Number 2 Number of DATA COMMUNICATIONS ANALYST Visits 0 Evaluation Information Evaluation Date 06/11/21 PT-OP-B Current Condition Start: 06/11/21 17:35 Freq: Status: Active Protocol: Document 06/11/21 10:35 DCW (Rec: 06/12/21 09:38 DCW [id number]) Current Condition History of Current Condition Onset Date 05/30/17 Current Complaints Low back pain, stiffness History of Current Condition Pt is a 70 year old male presenting with a multi-year history of back pain. Pt fell off a truck at work on 05/30/17 , and over the past five years has had ongoing low back pain . 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 Pt is largely limited with bending over to don/doff his socks and shoes, perform toenail care, or cross his legs. Pt has undergone PT at this and various other clinic for this condition with varying levels of success. Pt also undergoing infusions in oncology at this time for treatment of prostate cancer. Medical history also includes CHF, CKD III, HTN. PT-OP-C Subjective Start: 06/11/21 17:35 Freq: Status: Active Protocol: Document 06/21/21 14:30 DCW (Rec: 06/21/21 15:14 DCW [id number]) OP-PT Subjective Patient Comments Patient Comments Pt reports he spent a lot of time today riding his electric bike. PT-OP-F Manual Assessment Start: 06/11/21 17:35 Freq: Status: Active Protocol: Document 06/11/21 10:35 DCW (Rec: 06/11/21 18:06 DCW [id number]) Manual Assessments Soft Tissue Assessment Soft Tissue Mobility Assessment Hypertonia and tenderness to palpation 3/4: wincing and withdraw along bilateral paraspinals, QL, Piriformis Joint Mobility Assessment Joint Mobility Assessment Lumbar vertebral hypomobility PT-OP-K Range of Motion Start: 06/11/21 17:35 Freq: Status: Active Protocol: Document 06/11/21 10:35 DCW (Rec: 06/11/21 18:06 DCW [id number]) Lumbar Spine Range of Motion Lumbar Spine Active Degrees Testing Position Standing Flexion 50 Extension 10 Lateral Flexion Left 58 Lateral Flexion Right 53 ROM Limitations Soft Tissue Tightness,Bony Restriction,Muscle Tone,Pain PT-OP-L Special Tests Start: 06/11/21 17:35 Freq: Status: Active Protocol: Document 06/11/21 10:35 DCW (Rec: 06/11/21 18:06 DCW [id number]) Special Tests Lumbar Spine Special Tests Arash Test Results Negative JUANIS Test Results Negative Straight Leg Raise Test Results Hamstring tightness, 30? R, 45 ? L Slump Test Results HS tightness Hip Special Tests Piriformis Test Results Negative PT-OP-M Strength Start: 06/11/21 17:35 Freq: Status: Active Protocol: Document 06/11/21 10:35 DCW (Rec: 06/11/21 18:06 DCW [id number]) Hip Strength Hip Manual Muscle Testing Right Flexion (L2) 3+ Fair+ Abduction 4- Good- Adduction 4- Good- External Rotation 3+ Fair+ Internal Rotation 4- Good- Left Flexion (L2) 4- Good- Abduction 4 Good Adduction 4 Good External Rotation 4- Good- Internal Rotation 4- Good- Knee Strength Knee Manual Muscle Testing Right Flexion (S2) 3+ Fair+ Extension (L3) 3+ Fair+ Left Flexion (S2) 4- Good- Extension (L3) 4 Good Ankle/Foot Strength Ankle and Foot Manual Muscle Testing Right Dorsiflexion (L4) 4 Good Plantarflexion (S1) 4 Good Left Dorsiflexion (L4) 4 Good Plantarflexion (S1) 4 Good PT-OP-Q Treatments Start: 06/11/21 17:35 Freq: Status: Active Protocol: Document 06/21/21 14:30 DCW (Rec: 06/21/21 15:13 DCW [id number]) Cardio Equipment Recumbent Elliptical (Virtual Ports) Duration (Minutes) 5 Resistance 3 Seat Position 9 Gym Equipment Cable Column (Body Solid) Pallof Press Resistance 15# Therapeutic Ball supine Ball Size/Color Red - 55 cm Body Position Supine Reps/Duration 10 ea Comments 1. LTR 2. Bridging Therapeutic Exercises Supine Exercises 2 Supine Exercise Name Piriformis stretch Side bilateral 1 Supine Exercise Name Hamstring stretch Side bilateral Sidelying Exercises 3 Sidelying Exercise Name Reverse Clamshell Side bilateral 2 Sidelying Exercise Name Clamshell Side bilateral 1 Sidelying Exercise Name Open Book Side bilateral Manual Therapy Treatment Soft Tissue Mobilization lumbar Body Location Lumbar Paraspinals, QL Mobilization Type Strumming,Sustained Pressure Intensity/Depth Moderate Body Position Sidelying PT-OP-T Assessment and Plan Start: 06/11/21 17:35 Freq: Status: Active Protocol: Document 06/21/21 14:30 DCW (Rec: 06/21/21 15:13 DCW [id number]) Physical Therapy Assessment Impairments Impairments Activity Tolerance,Functional Activities,Functional Mobility ,Pain,ROM,Soft Tissue Mobility ,Strength,Tone Goals Two Impairment Pt experiences difficulty donning/doffing socks and shoes Intermediate Goal (LTG) Pt to demonstrate ability to don/doff shoes with no pain in low back LTG Duration 08/09/21 One Impairment Pt does not have an appropriate home exercise program Short Term Goal (STG) Pt to be independent and compliant with an appropriate HEP STG Duration 07/09/21 Assessment Summary Assessment Hips fairly stiff today, resistance to manual stretching, but tolerated treatment very well. Physical Therapy Plan Frequency and Duration Frequency of Treatment 2x/Week Duration of Treatment Two months Plan of Care Start Date 06/11/21 Plan of Care End Date 08/09/21 Therapeutic Interventions Therapeutic Interventions Aquatic Therapy,Gait Training, Home Exercise Program,Manual Therapy,Neuromuscular Re- education,Patient/Caregiver Education,Self-Care/Home Management,Soft Tissue Mobilization,Therapeutic Activities,Therapeutic Exercises Modalities Cold Pack/Ice Massage,Electric Stimulation,Hot Packs, Ultrasound Next Visit Focus/Plan Next Note Type Treatment Note Next Visit Plan STM, Stretching, strengthening
--- NOTE | 2021-06-24 12:01 | PT.OTN ---
Current Diagnoses Stiffness of other specified joint, not elsewhere classified (06/24/21) Low back pain, unspecified (06/24/21) Physical Therapy Treatment Note PT-OP-A Visit Information Start: 06/11/21 17:35 Freq: Status: Active Protocol: Document 06/24/21 11:15 DCW (Rec: 06/24/21 12:01 DCW [id number]) Out-Patient Physical Therapy Visit Information Visit Information Visit Type Treatment Note Visit Start Time 11:15 Visit Stop Time 12:00 Total Visit Minutes 45 Visit Number 3 Number of CLAY MILLER Visits 0 Evaluation Information Evaluation Date 06/11/21 PT-OP-B Current Condition Start: 06/11/21 17:35 Freq: Status: Active Protocol: Document 06/11/21 10:35 DCW (Rec: 06/12/21 09:38 DCW [id number]) Current Condition History of Current Condition Onset Date 05/30/17 Current Complaints Low back pain, stiffness History of Current Condition Pt is a 70 year old male presenting with a multi-year history of back pain. Pt fell off a truck at work on 05/30/17 , and over the past five years has had ongoing low back pain . 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 Pt is largely limited with bending over to don/doff his socks and shoes, perform toenail care, or cross his legs. Pt has undergone PT at this and various other clinic for this condition with varying levels of success. Pt also undergoing infusions in oncology at this time for treatment of prostate cancer. Medical history also includes CHF, CKD III, HTN. PT-OP-C Subjective Start: 06/11/21 17:35 Freq: Status: Active Protocol: Document 06/24/21 11:15 DCW (Rec: 06/24/21 12:01 DCW [id number]) OP-PT Subjective Patient Comments Patient Comments If I do work, I do get sore. I put in a light fixture in my boat, and my back was pretty sore afterward. Pt does note that I'm ready for you today. PT-OP-F Manual Assessment Start: 06/11/21 17:35 Freq: Status: Active Protocol: Document 06/11/21 10:35 DCW (Rec: 06/11/21 18:06 DCW [id number]) Manual Assessments Soft Tissue Assessment Soft Tissue Mobility Assessment Hypertonia and tenderness to palpation 3/4: wincing and withdraw along bilateral paraspinals, QL, Piriformis Joint Mobility Assessment Joint Mobility Assessment Lumbar vertebral hypomobility PT-OP-K Range of Motion Start: 06/11/21 17:35 Freq: Status: Active Protocol: Document 06/11/21 10:35 DCW (Rec: 06/11/21 18:06 DCW [id number]) Lumbar Spine Range of Motion Lumbar Spine Active Degrees Testing Position Standing Flexion 50 Extension 10 Lateral Flexion Left 58 Lateral Flexion Right 53 ROM Limitations Soft Tissue Tightness,Bony Restriction,Muscle Tone,Pain PT-OP-L Special Tests Start: 06/11/21 17:35 Freq: Status: Active Protocol: Document 06/11/21 10:35 DCW (Rec: 06/11/21 18:06 DCW [id number]) Special Tests Lumbar Spine Special Tests Arash Test Results Negative JUANIS Test Results Negative Straight Leg Raise Test Results Hamstring tightness, 30? R, 45 ? L Slump Test Results HS tightness Hip Special Tests Piriformis Test Results Negative PT-OP-M Strength Start: 06/11/21 17:35 Freq: Status: Active Protocol: Document 06/11/21 10:35 DCW (Rec: 06/11/21 18:06 DCW [id number]) Hip Strength Hip Manual Muscle Testing Right Flexion (L2) 3+ Fair+ Abduction 4- Good- Adduction 4- Good- External Rotation 3+ Fair+ Internal Rotation 4- Good- Left Flexion (L2) 4- Good- Abduction 4 Good Adduction 4 Good External Rotation 4- Good- Internal Rotation 4- Good- Knee Strength Knee Manual Muscle Testing Right Flexion (S2) 3+ Fair+ Extension (L3) 3+ Fair+ Left Flexion (S2) 4- Good- Extension (L3) 4 Good Ankle/Foot Strength Ankle and Foot Manual Muscle Testing Right Dorsiflexion (L4) 4 Good Plantarflexion (S1) 4 Good Left Dorsiflexion (L4) 4 Good Plantarflexion (S1) 4 Good PT-OP-Q Treatments Start: 06/11/21 17:35 Freq: Status: Active Protocol: Document 06/24/21 11:15 DCW (Rec: 06/24/21 12:01 DCW [id number]) Cardio Equipment Recumbent Elliptical (Biodex) Duration (Minutes) 5 Resistance 3 Seat Position 9 Gym Equipment Shuttle Recovery Unilateral Squats Resistance 50# Shuttle Recovery Platform Stable Bilateral Squats Resistance 100# Shuttle Recovery Platform Stable Therapeutic Ball supine Ball Size/Color Red - 55 cm Body Position Supine Reps/Duration 10 ea Comments 1. LTR 2. Bridging 3 Resisted hip flexion (Lv 2) Therapeutic Exercises Supine Exercises 2 Supine Exercise Name Piriformis stretch Side bilateral 1 Supine Exercise Name Hamstring stretch Side bilateral Manual Therapy Treatment Soft Tissue Mobilization lumbar Body Location Lumbar Paraspinals, QL Mobilization Type Strumming,Sustained Pressure Intensity/Depth Moderate Body Position Sidelying PT-OP-T Assessment and Plan Start: 06/11/21 17:35 Freq: Status: Active Protocol: Document 06/24/21 11:15 DCW (Rec: 06/24/21 12:01 DCW [id number]) Physical Therapy Assessment Impairments Impairments Activity Tolerance,Functional Activities,Functional Mobility ,Pain,ROM,Soft Tissue Mobility ,Strength,Tone Goals Two Impairment Pt experiences difficulty donning/doffing socks and shoes Die Cast Supervisor Goal (LTG) Pt to demonstrate ability to don/doff shoes with no pain in low back LTG Duration 08/09/21 One Impairment Pt does not have an appropriate home exercise program Short Term Goal (STG) Pt to be independent and compliant with an appropriate HEP STG Duration 07/09/21 Assessment Summary Assessment Pt tolerated treatment well today, felt much better following STM. Physical Therapy Plan Frequency and Duration Frequency of Treatment 2x/Week Duration of Treatment Two months Plan of Care Start Date 06/11/21 Plan of Care End Date 08/09/21 Therapeutic Interventions Therapeutic Interventions Aquatic Therapy,Gait Training, Home Exercise Program,Manual Therapy,Neuromuscular Re- education,Patient/Caregiver Education,Self-Care/Home Management,Soft Tissue Mobilization,Therapeutic Activities,Therapeutic Exercises Modalities Cold Pack/Ice Massage,Electric Stimulation,Hot Packs, Ultrasound Next Visit Focus/Plan Next Note Type Treatment Note Next Visit Plan STM, Stretching, strengthening
--- NOTE | 2021-06-27 12:41 | PT.OTN ---
Current Diagnoses Stiffness of other specified joint, not elsewhere classified (06/27/21) Low back pain, unspecified (06/27/21) Physical Therapy Treatment Note PT-OP-A Visit Information Start: 06/11/21 17:35 Freq: Status: Active Protocol: Document 06/27/21 12:00 DCW (Rec: 06/27/21 12:41 DCW [id number]) Out-Patient Physical Therapy Visit Information Visit Information Visit Type Treatment Note Visit Start Time 12:00 Visit Stop Time 12:45 Total Visit Minutes 45 Visit Number 4 Number of OIL AGENT Visits 0 Evaluation Information Evaluation Date 06/11/21 PT-OP-B Current Condition Start: 06/11/21 17:35 Freq: Status: Active Protocol: Document 06/11/21 10:35 DCW (Rec: 06/12/21 09:38 DCW [id number]) Current Condition History of Current Condition Onset Date 05/30/17 Current Complaints Low back pain, stiffness History of Current Condition Pt is a 70 year old male presenting with a multi-year history of back pain. Pt fell off a truck at work on 05/30/17 , and over the past five years has had ongoing low back pain . 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 Pt is largely limited with bending over to don/doff his socks and shoes, perform toenail care, or cross his legs. Pt has undergone PT at this and various other clinic for this condition with varying levels of success. Pt also undergoing infusions in oncology at this time for treatment of prostate cancer. Medical history also includes CHF, CKD III, HTN. PT-OP-C Subjective Start: 06/11/21 17:35 Freq: Status: Active Protocol: Document 06/27/21 12:00 DCW (Rec: 06/27/21 12:41 DCW [id number]) OP-PT Subjective Patient Comments Patient Comments I'm a little sore today, but I've been running around like crazy. PT-OP-F Manual Assessment Start: 06/11/21 17:35 Freq: Status: Active Protocol: Document 06/11/21 10:35 DCW (Rec: 06/11/21 18:06 DCW [id number]) Manual Assessments Soft Tissue Assessment Soft Tissue Mobility Assessment Hypertonia and tenderness to palpation 3/4: wincing and withdraw along bilateral paraspinals, QL, Piriformis Joint Mobility Assessment Joint Mobility Assessment Lumbar vertebral hypomobility PT-OP-K Range of Motion Start: 06/11/21 17:35 Freq: Status: Active Protocol: Document 06/11/21 10:35 DCW (Rec: 06/11/21 18:06 DCW [id number]) Lumbar Spine Range of Motion Lumbar Spine Active Degrees Testing Position Standing Flexion 50 Extension 10 Lateral Flexion Left 58 Lateral Flexion Right 53 ROM Limitations Soft Tissue Tightness,Bony Restriction,Muscle Tone,Pain PT-OP-L Special Tests Start: 06/11/21 17:35 Freq: Status: Active Protocol: Document 06/11/21 10:35 DCW (Rec: 06/11/21 18:06 DCW [id number]) Special Tests Lumbar Spine Special Tests Arash Test Results Negative JUANIS Test Results Negative Straight Leg Raise Test Results Hamstring tightness, 30? R, 45 ? L Slump Test Results HS tightness Hip Special Tests Piriformis Test Results Negative PT-OP-M Strength Start: 06/11/21 17:35 Freq: Status: Active Protocol: Document 06/11/21 10:35 DCW (Rec: 06/11/21 18:06 DCW [id number]) Hip Strength Hip Manual Muscle Testing Right Flexion (L2) 3+ Fair+ Abduction 4- Good- Adduction 4- Good- External Rotation 3+ Fair+ Internal Rotation 4- Good- Left Flexion (L2) 4- Good- Abduction 4 Good Adduction 4 Good External Rotation 4- Good- Internal Rotation 4- Good- Knee Strength Knee Manual Muscle Testing Right Flexion (S2) 3+ Fair+ Extension (L3) 3+ Fair+ Left Flexion (S2) 4- Good- Extension (L3) 4 Good Ankle/Foot Strength Ankle and Foot Manual Muscle Testing Right Dorsiflexion (L4) 4 Good Plantarflexion (S1) 4 Good Left Dorsiflexion (L4) 4 Good Plantarflexion (S1) 4 Good PT-OP-Q Treatments Start: 06/11/21 17:35 Freq: Status: Active Protocol: Document 06/27/21 12:00 DCW (Rec: 06/27/21 12:41 DCW [id number]) Cardio Equipment Recumbent Elliptical (BiodThumbs Up) Duration (Minutes) 5 Resistance 4 Seat Position 9 Gym Equipment Shuttle Recovery Unilateral Squats Resistance 50# Shuttle Recovery Platform Stable Bilateral Squats Resistance 100# Shuttle Recovery Platform Stable Therapeutic Ball supine Ball Size/Color Red - 55 cm Body Position Supine Reps/Duration 10 ea Comments 1. LTR 2. Bridging 3 Resisted hip flexion (Lv 2) Therapeutic Exercises Supine Exercises 2 Supine Exercise Name Piriformis stretch Side bilateral 1 Supine Exercise Name Hamstring stretch Side bilateral Manual Therapy Treatment Soft Tissue Mobilization lumbar Body Location Lumbar Paraspinals, QL Mobilization Type Strumming,Sustained Pressure Intensity/Depth Moderate Body Position Sidelying PT-OP-T Assessment and Plan Start: 06/11/21 17:35 Freq: Status: Active Protocol: Document 06/27/21 12:00 DCW (Rec: 06/27/21 12:41 DCW [id number]) Physical Therapy Assessment Impairments Impairments Activity Tolerance,Functional Activities,Functional Mobility ,Pain,ROM,Soft Tissue Mobility ,Strength,Tone Goals Two Impairment Pt experiences difficulty donning/doffing socks and shoes Fdc Goal (LTG) Pt to demonstrate ability to don/doff shoes with no pain in low back LTG Duration 08/09/21 One Impairment Pt does not have an appropriate home exercise program Short Term Goal (STG) Pt to be independent and compliant with an appropriate HEP STG Duration 07/09/21 Assessment Summary Assessment Pt appears to be moving with less pain and difficulty. Physical Therapy Plan Frequency and Duration Frequency of Treatment 2x/Week Duration of Treatment Two months Plan of Care Start Date 06/11/21 Plan of Care End Date 08/09/21 Therapeutic Interventions Therapeutic Interventions Aquatic Therapy,Gait Training, Home Exercise Program,Manual Therapy,Neuromuscular Re- education,Patient/Caregiver Education,Self-Care/Home Management,Soft Tissue Mobilization,Therapeutic Activities,Therapeutic Exercises Modalities Cold Pack/Ice Massage,Electric Stimulation,Hot Packs, Ultrasound Next Visit Focus/Plan Next Note Type Treatment Note Next Visit Plan STM, Stretching, strengthening
--- NOTE | 2021-07-01 11:56 | PT.OTN ---
Current Diagnoses Stiffness of other specified joint, not elsewhere classified (07/01/21) Low back pain, unspecified (07/01/21) Physical Therapy Treatment Note PT-OP-A Visit Information Start: 06/11/21 17:35 Freq: Status: Active Protocol: Document 07/01/21 11:15 DCW (Rec: 07/01/21 11:56 DCW [id number]) Out-Patient Physical Therapy Visit Information Visit Information Visit Type Treatment Note Visit Start Time 11:15 Visit Stop Time 12:00 Total Visit Minutes 45 Visit Number 5 Number of VARNISH BLENDER Visits 0 Evaluation Information Evaluation Date 06/11/21 PT-OP-B Current Condition Start: 06/11/21 17:35 Freq: Status: Active Protocol: Document 06/11/21 10:35 DCW (Rec: 06/12/21 09:38 DCW [id number]) Current Condition History of Current Condition Onset Date 05/30/17 Current Complaints Low back pain, stiffness History of Current Condition Pt is a 70 year old male presenting with a multi-year history of back pain. Pt fell off a truck at work on 05/30/17 , and over the past five years has had ongoing low back pain . 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 Pt is largely limited with bending over to don/doff his socks and shoes, perform toenail care, or cross his legs. Pt has undergone PT at this and various other clinic for this condition with varying levels of success. Pt also undergoing infusions in oncology at this time for treatment of prostate cancer. Medical history also includes CHF, CKD III, HTN. PT-OP-C Subjective Start: 06/11/21 17:35 Freq: Status: Active Protocol: Document 07/01/21 11:15 DCW (Rec: 07/01/21 11:56 DCW [id number]) OP-PT Subjective Patient Comments Patient Comments Pt has been going to [employer] over the last three days for multiple hours every morning, feels like it has been helpful. PT-OP-F Manual Assessment Start: 06/11/21 17:35 Freq: Status: Active Protocol: Document 06/11/21 10:35 DCW (Rec: 06/11/21 18:06 DCW [id number]) Manual Assessments Soft Tissue Assessment Soft Tissue Mobility Assessment Hypertonia and tenderness to palpation 3/4: wincing and withdraw along bilateral paraspinals, QL, Piriformis Joint Mobility Assessment Joint Mobility Assessment Lumbar vertebral hypomobility PT-OP-K Range of Motion Start: 06/11/21 17:35 Freq: Status: Active Protocol: Document 06/11/21 10:35 DCW (Rec: 06/11/21 18:06 DCW [id number]) Lumbar Spine Range of Motion Lumbar Spine Active Degrees Testing Position Standing Flexion 50 Extension 10 Lateral Flexion Left 58 Lateral Flexion Right 53 ROM Limitations Soft Tissue Tightness,Bony Restriction,Muscle Tone,Pain PT-OP-L Special Tests Start: 06/11/21 17:35 Freq: Status: Active Protocol: Document 06/11/21 10:35 DCW (Rec: 06/11/21 18:06 DCW [id number]) Special Tests Lumbar Spine Special Tests Arash Test Results Negative JUANIS Test Results Negative Straight Leg Raise Test Results Hamstring tightness, 30? R, 45 ? L Slump Test Results HS tightness Hip Special Tests Piriformis Test Results Negative PT-OP-M Strength Start: 06/11/21 17:35 Freq: Status: Active Protocol: Document 06/11/21 10:35 DCW (Rec: 06/11/21 18:06 DCW [id number]) Hip Strength Hip Manual Muscle Testing Right Flexion (L2) 3+ Fair+ Abduction 4- Good- Adduction 4- Good- External Rotation 3+ Fair+ Internal Rotation 4- Good- Left Flexion (L2) 4- Good- Abduction 4 Good Adduction 4 Good External Rotation 4- Good- Internal Rotation 4- Good- Knee Strength Knee Manual Muscle Testing Right Flexion (S2) 3+ Fair+ Extension (L3) 3+ Fair+ Left Flexion (S2) 4- Good- Extension (L3) 4 Good Ankle/Foot Strength Ankle and Foot Manual Muscle Testing Right Dorsiflexion (L4) 4 Good Plantarflexion (S1) 4 Good Left Dorsiflexion (L4) 4 Good Plantarflexion (S1) 4 Good PT-OP-Q Treatments Start: 06/11/21 17:35 Freq: Status: Active Protocol: Document 07/01/21 11:15 DCW (Rec: 07/01/21 11:56 DCW [id number]) Cardio Equipment Recumbent Elliptical (Best Response Strategies) Duration (Minutes) 6 Resistance 4 Seat Position 9 Gym Equipment Shuttle Recovery Unilateral Squats Resistance 62# Shuttle Recovery Platform Stable Bilateral Squats Resistance 112# Shuttle Recovery Platform Stable Therapeutic Ball supine Ball Size/Color Red - 55 cm Body Position Supine Reps/Duration 10 ea Comments 1. LTR 2. Bridging 3 Resisted hip flexion (Lv 2) Therapeutic Exercises Supine Exercises 2 Supine Exercise Name Piriformis stretch Side bilateral 1 Supine Exercise Name Hamstring stretch Side bilateral Manual Therapy Treatment Soft Tissue Mobilization lumbar Body Location Lumbar Paraspinals, QL Mobilization Type Strumming,Sustained Pressure Intensity/Depth Moderate Body Position Sidelying PT-OP-T Assessment and Plan Start: 06/11/21 17:35 Freq: Status: Active Protocol: Document 07/01/21 11:15 DCW (Rec: 07/01/21 11:56 DCW [id number]) Physical Therapy Assessment Impairments Impairments Activity Tolerance,Functional Activities,Functional Mobility ,Pain,ROM,Soft Tissue Mobility ,Strength,Tone Goals Two Impairment Pt experiences difficulty donning/doffing socks and shoes Jail Goal (LTG) Pt to demonstrate ability to don/doff shoes with no pain in low back LTG Duration 08/09/21 One Impairment Pt does not have an appropriate home exercise program Short Term Goal (STG) Pt to be independent and compliant with an appropriate HEP STG Duration 07/09/21 Assessment Summary Assessment Pt making good progress, doing well with addition of independent gym workouts. Physical Therapy Plan Frequency and Duration Frequency of Treatment 2x/Week Duration of Treatment Two months Plan of Care Start Date 06/11/21 Plan of Care End Date 08/09/21 Therapeutic Interventions Therapeutic Interventions Aquatic Therapy,Gait Training, Home Exercise Program,Manual Therapy,Neuromuscular Re- education,Patient/Caregiver Education,Self-Care/Home Management,Soft Tissue Mobilization,Therapeutic Activities,Therapeutic Exercises Modalities Cold Pack/Ice Massage,Electric Stimulation,Hot Packs, Ultrasound Next Visit Focus/Plan Next Note Type Treatment Note Next Visit Plan STM, Stretching, strengthening
--- NOTE | 2021-07-03 12:43 | PT.OTN ---
Current Diagnoses Stiffness of other specified joint, not elsewhere classified (07/03/21) Low back pain, unspecified (07/03/21) Physical Therapy Treatment Note PT-OP-A Visit Information Start: 06/11/21 17:35 Freq: Status: Active Protocol: Document 07/03/21 12:00 DCW (Rec: 07/03/21 12:43 DCW [id number]) Out-Patient Physical Therapy Visit Information Visit Information Visit Type Treatment Note Visit Start Time 12:00 Visit Stop Time 12:45 Total Visit Minutes 45 Visit Number 6 Number of DAIRY WORKER Visits 0 Evaluation Information Evaluation Date 06/11/21 PT-OP-B Current Condition Start: 06/11/21 17:35 Freq: Status: Active Protocol: Document 06/11/21 10:35 DCW (Rec: 06/12/21 09:38 DCW [id number]) Current Condition History of Current Condition Onset Date 05/30/17 Current Complaints Low back pain, stiffness History of Current Condition Pt is a 70 year old male presenting with a multi-year history of back pain. Pt fell off a truck at work on 05/30/17 , and over the past five years has had ongoing low back pain . 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 Pt is largely limited with bending over to don/doff his socks and shoes, perform toenail care, or cross his legs. Pt has undergone PT at this and various other clinic for this condition with varying levels of success. Pt also undergoing infusions in oncology at this time for treatment of prostate cancer. Medical history also includes CHF, CKD III, HTN. PT-OP-C Subjective Start: 06/11/21 17:35 Freq: Status: Active Protocol: Document 07/03/21 12:00 DCW (Rec: 07/03/21 12:43 DCW [id number]) OP-PT Subjective Patient Comments Patient Comments Pt continues to go to the gym every morning. PT-OP-F Manual Assessment Start: 06/11/21 17:35 Freq: Status: Active Protocol: Document 06/11/21 10:35 DCW (Rec: 06/11/21 18:06 DCW [id number]) Manual Assessments Soft Tissue Assessment Soft Tissue Mobility Assessment Hypertonia and tenderness to palpation 3/4: wincing and withdraw along bilateral paraspinals, QL, Piriformis Joint Mobility Assessment Joint Mobility Assessment Lumbar vertebral hypomobility PT-OP-K Range of Motion Start: 06/11/21 17:35 Freq: Status: Active Protocol: Document 06/11/21 10:35 DCW (Rec: 06/11/21 18:06 DCW [id number]) Lumbar Spine Range of Motion Lumbar Spine Active Degrees Testing Position Standing Flexion 50 Extension 10 Lateral Flexion Left 58 Lateral Flexion Right 53 ROM Limitations Soft Tissue Tightness,Bony Restriction,Muscle Tone,Pain PT-OP-L Special Tests Start: 06/11/21 17:35 Freq: Status: Active Protocol: Document 06/11/21 10:35 DCW (Rec: 06/11/21 18:06 DCW [id number]) Special Tests Lumbar Spine Special Tests Arash Test Results Negative JUANIS Test Results Negative Straight Leg Raise Test Results Hamstring tightness, 30? R, 45 ? L Slump Test Results HS tightness Hip Special Tests Piriformis Test Results Negative PT-OP-M Strength Start: 06/11/21 17:35 Freq: Status: Active Protocol: Document 06/11/21 10:35 DCW (Rec: 06/11/21 18:06 DCW [id number]) Hip Strength Hip Manual Muscle Testing Right Flexion (L2) 3+ Fair+ Abduction 4- Good- Adduction 4- Good- External Rotation 3+ Fair+ Internal Rotation 4- Good- Left Flexion (L2) 4- Good- Abduction 4 Good Adduction 4 Good External Rotation 4- Good- Internal Rotation 4- Good- Knee Strength Knee Manual Muscle Testing Right Flexion (S2) 3+ Fair+ Extension (L3) 3+ Fair+ Left Flexion (S2) 4- Good- Extension (L3) 4 Good Ankle/Foot Strength Ankle and Foot Manual Muscle Testing Right Dorsiflexion (L4) 4 Good Plantarflexion (S1) 4 Good Left Dorsiflexion (L4) 4 Good Plantarflexion (S1) 4 Good PT-OP-Q Treatments Start: 06/11/21 17:35 Freq: Status: Active Protocol: Document 07/03/21 12:00 DCW (Rec: 07/03/21 12:43 DCW [id number]) Cardio Equipment Recumbent Elliptical (BiodSport/Life) Duration (Minutes) 6 Resistance 4 Seat Position 9 Gym Equipment Shuttle Recovery Unilateral Squats Resistance 62# Shuttle Recovery Platform Stable Bilateral Squats Resistance 112# Shuttle Recovery Platform Stable Therapeutic Ball supine Ball Size/Color Red - 55 cm Body Position Supine Reps/Duration 10 ea Comments 1. LTR 2. Bridging 3 Resisted hip flexion (Lv 3) Therapeutic Exercises Supine Exercises 2 Supine Exercise Name Piriformis stretch Side bilateral 1 Supine Exercise Name Hamstring stretch Side bilateral Manual Therapy Treatment Soft Tissue Mobilization lumbar Body Location Lumbar Paraspinals, QL Mobilization Type Strumming,Sustained Pressure Intensity/Depth Moderate Body Position Sidelying PT-OP-T Assessment and Plan Start: 06/11/21 17:35 Freq: Status: Active Protocol: Document 07/03/21 12:00 DCW (Rec: 07/03/21 12:43 DCW [id number]) Physical Therapy Assessment Impairments Impairments Activity Tolerance,Functional Activities,Functional Mobility ,Pain,ROM,Soft Tissue Mobility ,Strength,Tone Goals Two Impairment Pt experiences difficulty donning/doffing socks and shoes Traffic Signal Repairer Goal (LTG) Pt to demonstrate ability to don/doff shoes with no pain in low back LTG Duration 08/09/21 One Impairment Pt does not have an appropriate home exercise program Short Term Goal (STG) Pt to be independent and compliant with an appropriate HEP STG Duration 07/09/21 Assessment Summary Assessment Pt continuing to make good progress, doing well with independent HEP, showing improvement with lumbar muscle tone. Physical Therapy Plan Frequency and Duration Frequency of Treatment 2x/Week Duration of Treatment Two months Plan of Care Start Date 06/11/21 Plan of Care End Date 08/09/21 Therapeutic Interventions Therapeutic Interventions Aquatic Therapy,Gait Training, Home Exercise Program,Manual Therapy,Neuromuscular Re- education,Patient/Caregiver Education,Self-Care/Home Management,Soft Tissue Mobilization,Therapeutic Activities,Therapeutic Exercises Modalities Cold Pack/Ice Massage,Electric Stimulation,Hot Packs, Ultrasound Next Visit Focus/Plan Next Note Type Treatment Note Next Visit Plan STM, Stretching, strengthening
--- NOTE | 2021-07-09 11:53 | PT.OTN ---
Current Diagnoses Stiffness of other specified joint, not elsewhere classified (07/09/21) Low back pain, unspecified (07/09/21) Physical Therapy Treatment Note PT-OP-A Visit Information Start: 06/11/21 17:35 Freq: Status: Active Protocol: Document 07/09/21 11:15 DCW (Rec: 07/09/21 11:53 DCW [id number]) Out-Patient Physical Therapy Visit Information Visit Information Visit Type Treatment Note Visit Start Time 11:15 Visit Stop Time 12:00 Total Visit Minutes 45 Visit Number 7 Number of FIRMWARE SOFTWARE VERIFICATION ENGINEER Visits 0 Evaluation Information Evaluation Date 06/11/21 PT-OP-B Current Condition Start: 06/11/21 17:35 Freq: Status: Active Protocol: Document 06/11/21 10:35 DCW (Rec: 06/12/21 09:38 DCW [id number]) Current Condition History of Current Condition Onset Date 05/30/17 Current Complaints Low back pain, stiffness History of Current Condition Pt is a 70 year old male presenting with a multi-year history of back pain. Pt fell off a truck at work on 05/30/17 , and over the past five years has had ongoing low back pain . 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 Pt is largely limited with bending over to don/doff his socks and shoes, perform toenail care, or cross his legs. Pt has undergone PT at this and various other clinic for this condition with varying levels of success. Pt also undergoing infusions in oncology at this time for treatment of prostate cancer. Medical history also includes CHF, CKD III, HTN. PT-OP-C Subjective Start: 06/11/21 17:35 Freq: Status: Active Protocol: Document 07/09/21 11:15 DCW (Rec: 07/09/21 11:53 DCW [id number]) OP-PT Subjective Patient Comments Patient Comments Pt still doing well with independent exercise PT-OP-F Manual Assessment Start: 06/11/21 17:35 Freq: Status: Active Protocol: Document 06/11/21 10:35 DCW (Rec: 06/11/21 18:06 DCW [id number]) Manual Assessments Soft Tissue Assessment Soft Tissue Mobility Assessment Hypertonia and tenderness to palpation 3/4: wincing and withdraw along bilateral paraspinals, QL, Piriformis Joint Mobility Assessment Joint Mobility Assessment Lumbar vertebral hypomobility PT-OP-K Range of Motion Start: 06/11/21 17:35 Freq: Status: Active Protocol: Document 06/11/21 10:35 DCW (Rec: 06/11/21 18:06 DCW [id number]) Lumbar Spine Range of Motion Lumbar Spine Active Degrees Testing Position Standing Flexion 50 Extension 10 Lateral Flexion Left 58 Lateral Flexion Right 53 ROM Limitations Soft Tissue Tightness,Bony Restriction,Muscle Tone,Pain PT-OP-L Special Tests Start: 06/11/21 17:35 Freq: Status: Active Protocol: Document 06/11/21 10:35 DCW (Rec: 06/11/21 18:06 DCW [id number]) Special Tests Lumbar Spine Special Tests Arash Test Results Negative JUANIS Test Results Negative Straight Leg Raise Test Results Hamstring tightness, 30? R, 45 ? L Slump Test Results HS tightness Hip Special Tests Piriformis Test Results Negative PT-OP-M Strength Start: 06/11/21 17:35 Freq: Status: Active Protocol: Document 06/11/21 10:35 DCW (Rec: 06/11/21 18:06 DCW [id number]) Hip Strength Hip Manual Muscle Testing Right Flexion (L2) 3+ Fair+ Abduction 4- Good- Adduction 4- Good- External Rotation 3+ Fair+ Internal Rotation 4- Good- Left Flexion (L2) 4- Good- Abduction 4 Good Adduction 4 Good External Rotation 4- Good- Internal Rotation 4- Good- Knee Strength Knee Manual Muscle Testing Right Flexion (S2) 3+ Fair+ Extension (L3) 3+ Fair+ Left Flexion (S2) 4- Good- Extension (L3) 4 Good Ankle/Foot Strength Ankle and Foot Manual Muscle Testing Right Dorsiflexion (L4) 4 Good Plantarflexion (S1) 4 Good Left Dorsiflexion (L4) 4 Good Plantarflexion (S1) 4 Good PT-OP-Q Treatments Start: 06/11/21 17:35 Freq: Status: Active Protocol: Document 07/09/21 11:15 DCW (Rec: 07/09/21 11:53 DCW [id number]) Cardio Equipment Recumbent Elliptical (Biodex) Duration (Minutes) 8 Resistance 6 Seat Position 9 Gym Equipment Shuttle Recovery Unilateral Squats Resistance 62# Shuttle Recovery Platform Stable Bilateral Squats Resistance 112# Shuttle Recovery Platform Stable Therapeutic Ball supine Ball Size/Color Red - 55 cm Body Position Supine Reps/Duration 10 ea Comments 1. LTR 2. Bridging 3 Resisted hip flexion (Lv 3) Therapeutic Exercises Supine Exercises 2 Supine Exercise Name Piriformis stretch Side bilateral 1 Supine Exercise Name Hamstring stretch Side bilateral Manual Therapy Treatment Soft Tissue Mobilization lumbar Body Location Lumbar Paraspinals, QL Mobilization Type Strumming,Sustained Pressure Intensity/Depth Moderate Body Position Sidelying PT-OP-T Assessment and Plan Start: 06/11/21 17:35 Freq: Status: Active Protocol: Document 07/09/21 11:15 DCW (Rec: 07/09/21 11:53 DCW [id number]) Physical Therapy Assessment Impairments Impairments Activity Tolerance,Functional Activities,Functional Mobility ,Pain,ROM,Soft Tissue Mobility ,Strength,Tone Goals Two Impairment Pt experiences difficulty donning/doffing socks and shoes Fdc Goal (LTG) Pt to demonstrate ability to don/doff shoes with no pain in low back LTG Duration 08/09/21 One Impairment Pt does not have an appropriate home exercise program Short Term Goal (STG) Pt to be independent and compliant with an appropriate HEP STG Duration 07/09/21 Assessment Summary Assessment Pt may be approaching discharge, doing well overall, will assess next visit. Physical Therapy Plan Frequency and Duration Frequency of Treatment 2x/Week Duration of Treatment Two months Plan of Care Start Date 06/11/21 Plan of Care End Date 08/09/21 Therapeutic Interventions Therapeutic Interventions Aquatic Therapy,Gait Training, Home Exercise Program,Manual Therapy,Neuromuscular Re- education,Patient/Caregiver Education,Self-Care/Home Management,Soft Tissue Mobilization,Therapeutic Activities,Therapeutic Exercises Modalities Cold Pack/Ice Massage,Electric Stimulation,Hot Packs, Ultrasound Next Visit Focus/Plan Next Note Type Treatment Note Next Visit Plan Reassess for potential d/c
--- NOTE | 2021-07-11 12:07 | PT.OTN ---
Current Diagnoses Stiffness of other specified joint, not elsewhere classified (07/11/21) Low back pain, unspecified (07/11/21) Physical Therapy Treatment Note PT-OP-A Visit Information Start: 06/11/21 17:35 Freq: Status: Active Protocol: Document 07/11/21 11:18 DCW (Rec: 07/11/21 12:06 DCW [id number]) Out-Patient Physical Therapy Visit Information Visit Information Visit Type Discharge Summary Visit Start Time 11:18 Visit Stop Time 12:00 Total Visit Minutes 43 Visit Number 8 Number of RIBBON CUTTER Visits 0 Evaluation Information Evaluation Date 06/11/21 PT-OP-B Current Condition Start: 06/11/21 17:35 Freq: Status: Active Protocol: Document 06/11/21 10:35 DCW (Rec: 06/12/21 09:38 DCW [id number]) Current Condition History of Current Condition Onset Date 05/30/17 Current Complaints Low back pain, stiffness History of Current Condition Pt is a 70 year old male presenting with a multi-year history of back pain. Pt fell off a truck at work on 05/30/17 , and over the past five years has had ongoing low back pain . 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 Pt is largely limited with bending over to don/doff his socks and shoes, perform toenail care, or cross his legs. Pt has undergone PT at this and various other clinic for this condition with varying levels of success. Pt also undergoing infusions in oncology at this time for treatment of prostate cancer. Medical history also includes CHF, CKD III, HTN. PT-OP-C Subjective Start: 06/11/21 17:35 Freq: Status: Active Protocol: Document 07/11/21 11:18 DCW (Rec: 07/11/21 12:06 DCW [id number]) OP-PT Subjective Patient Comments Patient Comments Pt feels comfortable eith her gym exercises, does note he had some back soreness after using a white washer piler yesterday. PT-OP-F Manual Assessment Start: 06/11/21 17:35 Freq: Status: Active Protocol: Document 07/11/21 11:18 DCW (Rec: 07/11/21 11:48 DCW [id number]) Manual Assessments Soft Tissue Assessment Soft Tissue Mobility Assessment Mild hypertonia and tenderness to palpation 1/4: complaint of pain along bilateral paraspinals, QL, Piriformis PT-OP-K Range of Motion Start: 06/11/21 17:35 Freq: Status: Active Protocol: Document 07/11/21 11:18 DCW (Rec: 07/11/21 11:48 DCW [id number]) Lumbar Spine Range of Motion Lumbar Spine Active Degrees Testing Position Standing Flexion 60 Extension 20 Lateral Flexion Left 51 Lateral Flexion Right 49 PT-OP-L Special Tests Start: 06/11/21 17:35 Freq: Status: Active Protocol: Document 07/11/21 11:18 DCW (Rec: 07/11/21 11:48 DCW [id number]) Special Tests Lumbar Spine Special Tests Arash Test Results Negative JUANIS Test Results Negative Straight Leg Raise Test Results Hamstring tightness, 68? R, 62 ? L Slump Test Results HS tightness Hip Special Tests Piriformis Test Results Negative PT-OP-M Strength Start: 06/11/21 17:35 Freq: Status: Active Protocol: Document 07/11/21 11:18 DCW (Rec: 07/11/21 11:48 DCW [id number]) Hip Strength Hip Manual Muscle Testing Right Flexion (L2) 4 Good Abduction 4+ Good+ Adduction 4+ Good+ External Rotation 4- Good- Internal Rotation 4 Good Left Flexion (L2) 4+ Good+ Abduction 4+ Good+ Adduction 4+ Good+ External Rotation 4+ Good+ Internal Rotation 4+ Good+ Knee Strength Knee Manual Muscle Testing Right Flexion (S2) 4 Good Extension (L3) 4 Good Left Flexion (S2) 4 Good Extension (L3) 4 Good Ankle/Foot Strength Ankle and Foot Manual Muscle Testing Right Dorsiflexion (L4) 4+ Good+ Plantarflexion (S1) 4+ Good+ Left Dorsiflexion (L4) 4+ Good+ Plantarflexion (S1) 4+ Good+ PT-OP-Q Treatments Start: 06/11/21 17:35 Freq: Status: Active Protocol: Document 07/11/21 11:18 DCW (Rec: 07/11/21 12:06 DCW [id number]) Therapeutic Exercises Supine Exercises 2 Supine Exercise Name Piriformis stretch Side bilateral 1 Supine Exercise Name Hamstring stretch Side bilateral Manual Therapy Treatment Soft Tissue Mobilization lumbar Body Location Lumbar Paraspinals, QL Mobilization Type Strumming,Sustained Pressure Intensity/Depth Moderate Body Position Sidelying Other Other Manual Treatments Testing PT-OP-T Assessment and Plan Start: 06/11/21 17:35 Freq: Status: Active Protocol: Document 07/11/21 11:18 DCW (Rec: 07/11/21 12:06 DCW [id number]) Physical Therapy Assessment Impairments Impairments Activity Tolerance,Functional Activities,Functional Mobility ,Pain,ROM,Soft Tissue Mobility ,Strength,Tone Goals Two Impairment Pt experiences difficulty donning/doffing socks and shoes Cost Accountant Goal (LTG) Pt to demonstrate ability to don/doff shoes with no pain in low back LTG Duration 08/09/21 - Improving One Impairment Pt does not have an appropriate home exercise program Short Term Goal (STG) Pt to be independent and compliant with an appropriate HEP STG Duration Met Assessment Summary Assessment Pt has improved in all areas, has become very regular in his adherence with his HEP. Appropriate for discharge from skilled therapy at this time. Physical Therapy Plan Frequency and Duration Frequency of Treatment 2x/Week Duration of Treatment Two months Plan of Care Start Date 06/11/21 Plan of Care End Date 08/09/21 Therapeutic Interventions Therapeutic Interventions Aquatic Therapy,Gait Training, Home Exercise Program,Manual Therapy,Neuromuscular Re- education,Patient/Caregiver Education,Self-Care/Home Management,Soft Tissue Mobilization,Therapeutic Activities,Therapeutic Exercises Modalities Cold Pack/Ice Massage,Electric Stimulation,Hot Packs, Ultrasound Discharge Physical Therapy Discharge Reasons Goals Met Next Visit Focus/Plan Next Note Type Discharge Summary
== END 2021-07-12 13:19 ==
LOC: PHYS 11:15
PROVIDERS: Family Provider Internal Medicine; PCP Internal Medicine; Referring Provider Internal Medicine; Visit Provider Internal Medicine
DX: M54.50 Low back pain, unspecified (principal); M25.69 Stiffness of other specified joint, not elsewhere classified
CPT/HCPCS: 97110; 97140; 97162

== ENCOUNTER 2021-07-14 14:14 | Emergency (ER) | payer MEDICARE, MEDICAID, SELFPAY ==
[2019-04-14 18:42] VITALS: BMI 22.7
[2021-07-14 14:25] VITALS: BP 148/80; PULSE 87; RESP 20; O2SAT 97; BMI 34.2
--- NOTE | 2021-07-14 14:48 | ED_ITS ---
HPI - Animal Bite <Michael Forrest PA-C - Last Filed: 07/14/21 15:14> General Chief Complaint: Animal Bite Stated Complaint: Dog bite to right thigh Time Seen by Provider: 07/14/21 14:30 Source: patient Mode of arrival: Ambulatory History of Present Illness HPI narrative: Patient is a 70-year-old male who presents to the ED after being attacked by a dog while riding his bicycle. He reports that while he was riding his bike he observed a gentleman that was standing on the side of the road with a pit bull dog on a leash. Dog noticed patient on his bicycle became aggressive pulled away from the leash and ran towards him and attacked him. The dog was able to bite the right side of his thigh and upper leg of which caused him to come off the bike. No other injury was reported no reported loss of consciousness. The vaccination status of the dog is questionable as the development technical lead was reported to be in group home and the gentleman that was looking after the dog is unsure of his current vaccination status. [facility] department was notified of the incident and will take custody of the dog and will monitor the dog for the next 2 weeks. Patient does have history of heart related issues he also has some prostate and kidney problems of which he sees multiple specialists for. No reported allergies to medicines. Patient denies any fever cough chills shortness of breath nausea vomiting diarrhea. Related Data Home Medications Medication Instructions Recorded Confirmed losartan 25 mg tablet 25 mg PO DAILY 07/04/19 05/15/21 spironolactone 25 mg tablet 12.5 mg PO DAILY 07/04/19 05/15/21 bicalutamide 50 mg tablet (Casodex) 50 mg PO DAILY 07/20/19 05/15/21 leuprolide (3 month) 11.25 mg (3 11.25 mg IM [id number] 07/20/19 05/15/21 month) intramuscular syringe kit (Lupron Depot) metoprolol tartrate 100 mg tablet 100 mg PO BID 08/24/19 05/15/21 rosuvastatin 40 mg tablet 40 mg PO ONCE PM 12/21/19 05/15/21 Previous Rx's Medication Instructions Recorded aspirin 81 mg tablet,delayed 81 mg PO DAILY #30 tab 04/19/19 release enzalutamide 40 mg capsule 160 mg PO Q24H #120 cap 09/18/20 cyanocobalamin (vitamin B-12) 1,000 mcg PO DAILY #90 tab 09/25/20 1,000 mcg tablet ferrous sulfate 325 mg (65 mg 325 mg PO DAILY #90 tab 12/25/20 iron) tablet amoxicillin 500 mg-potassium 1 tab PO BID #20 tab 07/14/21 clavulanate 125 mg tablet (Augmentin) Allergies Allergy/AdvReac Type Severity Reaction Status Date / Time No Known Drug Allergies Allergy Verified 07/14/21 14:38 Review of Systems <Michael Forrest PA-C - Last Filed: 07/14/21 15:14> Review of Systems ROS Unobtainable: All systems reviewed & are unremarkable except as noted in HPI and below Constitutional Constitutional: Denies chills, Denies fatigue, Denies fever(s), Denies frequent falls, Denies lethargy and Denies weakness Eyes Eyes: Denies change in vision, Denies eye discharge, Denies irritation and Denies loss of vision ENT Ears, Nose, Mouth, and Throat: Denies change in voice, Denies dizziness, Denies neck pain, Denies sore throat and Denies throat swelling Cardiovascular Cardiovascular: Denies chest pain, Denies irregular heart rhythm, Denies lightheadedness, Denies palpitations, Denies dyspnea, Denies dyspnea on exertion and Denies orthopnea Respiratory Respiratory: Denies cough, Denies dyspnea, Denies dyspnea on exertion and Denies wheezing Gastrointestinal Gastrointestinal: Denies abdominal pain, Denies change in bowel habits, Denies diarrhea, Denies nausea and Denies vomiting Genitourinary Genitourinary: Denies hematuria, Denies flank pain, Denies urinary incontinence and Denies urinary urgency Musculoskeletal Musculoskeletal: Denies back pain, Denies muscle weakness, Denies neck pain, Denies numbness and Denies tingling Integumentary/Breasts Skin/Breast: Denies pruritus, Denies erythema, Denies rash and Reports wounds Neurologic Neurologic: Denies behavioral changes, Denies confusion, Denies dizziness, Denies frequent falls, Denies loss of vision, Denies numbness, Denies tingling and Denies weakness Psychiatric Psychiatric: Denies anxiety, Denies behavioral changes, Denies confusion, Denies depression, Denies homicidal ideation and Denies suicidal ideation Endocrine Endocrine: Denies fatigue, Denies flushing and Denies palpitations Hematologic/Lymphatic Hematologic/Lymphatic: Denies easy bruising Allergic/Immunologic Allergic/Immunologic: Denies urticaria, Denies throat swelling and Denies wheezing Patient History <Michael Forrest PA-C - Last Filed: 07/14/21 15:14> Medical History Chronic kidney disease (CKD) Congestive heart failure Facet arthropathy, lumbar Herniated nucleus pulposus, lumbar Hyperlipidemia Hypertension No chronic problems Surgical History Hx of hand surgery (2001) Family History Father Stomach ulcer Social History marital status: unknown household members: none Smoking Status: Never smoker alcohol intake: former Smoking Status: Never smoker alcohol intake frequency: other Substance Use Type: does not use Exam <Michael Forrest PA-C - Last Filed: 07/14/21 15:14> Initial Vital Signs Initial Vital Signs: Vital Signs Pulse Rate 87 07/14/21 14:25 Respiratory Rate 20 07/14/21 14:25 Blood Pressure 148/80 H 07/14/21 14:25 Pulse Oximetry 97 07/14/21 14:25 Const General: cooperative, healthy appearing, comfortable and well developed Nutritional Appearance: average body habitus Orientation: Orientation [facility] Head: normal to inspection, normocephalic and atraumatic Ears: hearing grossly normal bilaterally and external ears normal Nose: external nose normal and nares normal Face and sinus: normal facial exam Mouth: oral mucosae normal Teeth and gingiva: dentition normal Throat: posterior oropharynx normal Eyes General: appearance normal, both eyes and all related structures Pupils: PERRL Resp Effort & Inspection: normal respiratory effort and able to speak in complete sentences GI Inspection: normal to inspection Palpation: soft Skin General: elasticity normal and turgor normal Lesions: lesion noted (Two small punctate markings along the right lateral thigh and a couple smal) Neuro General: patient alert, patient awake, patient oriented x3, gait normal, tone normal, moves all extremities and CN's II-XI intact bilaterally <DO Antoinette Chairez Last Filed: 07/14/21 17:54> Initial Vital Signs Initial Vital Signs: Vital Signs Pulse Rate 87 07/14/21 14:25 Respiratory Rate 20 07/14/21 14:25 Blood Pressure 148/80 H 07/14/21 14:25 Pulse Oximetry 97 07/14/21 14:25 Course <Michael Forrest PA-C - Last Filed: 07/14/21 15:14> Vital Signs Vital signs: Vital Signs - 8 hr 07/14/21 14:25 07/14/21 15:12 07/14/21 15:18 Temperature 98.7 F Pulse Rate 87 84 Respiratory Rate 20 16 Blood Pressure 148/80 H 134/72 Pulse Oximetry 97 96 <Harrison Bender DO - Last Filed: 07/14/21 17:54> Vital Signs Vital signs: Vital Signs - 8 hr 07/14/21 14:25 07/14/21 15:12 07/14/21 15:18 Temperature 98.7 F Pulse Rate 87 84 Respiratory Rate 20 16 Blood Pressure 148/80 H 134/72 Pulse Oximetry 97 96 MDM - Animal Bite <Michael Forrest PA-C - Last Filed: 07/14/21 15:14> Differential Diagnosis Differential diagnosis: Likely dog bite MDM Narrative Medical decision making narrative: Patient was evaluated today for a animal attack by a domesticated dog. After discussion with the patient regarding risk stratification of rabies exposure in this situation it seems low. [employer] department is going to take custody of the animal and will monitor the animal for any signs. I spoke with patient regarding treatment options of which he agrees to wait on any rabies treatment at this time. Based on the exposure and antibiotic is justified and a prescription for Augmentin will be sent over to his pharmacy of record. He should continue to cleanse the wound with antiseptic and watch for signs of infection. And stay in contact with [facility] for any notification of any rabies diagnosis. He should follow-up with his PCP for any further contribute or he can return to the ED as needed. Patient will be discharged home. Discharge Plan Departure Patient Disposition: Home Clinical Impression: Bite by animal, Dog bite Instructions: DI for Dog Bite Activity Restrictions/Additional Instructions: Your dog bite today does not show any need for any sutures. I would recommend you purchase some chlorhexidine solution from your local pharmacy and wash the areas twice daily allow time for the soap to penetrate the wound before washing it off. You can cover the areas as needed. Monitor for signs of infection which include redness swelling pain drainage. If you notice any of these symptoms or have concerns about infection you can return to the ED to have a re- evaluation or you can for contact your regular doctor. Keep in close contact with the [employer] regarding the status of the animal and if there is found to be any evidence of rabies you should contact your primary care to start treatment or you can come to the emergency room for evaluation. Thank you for the opportunity to care for you today. Prescriptions: New amoxicillin-pot clavulanate [Augmentin] 500-125 mg tablet 1 tab PO BID Qty: 20 0RF No Action metoprolol tartrate 100 mg tablet 100 mg PO BID 0RF bicalutamide [Casodex] 50 mg tablet 50 mg PO DAILY 0RF Lupron Depot (3 month) 11.25 mg syringe kit 11.25 mg IM [id number] 0RF spironolactone 25 mg Tablet 12.5 mg PO DAILY 0RF losartan 25 mg Tablet 25 mg PO DAILY 0RF rosuvastatin 40 mg Tablet 40 mg PO ONCE PM 0RF Rx Instructions: Take 1 tablet (40 mg total) by mouth nightly. Replaces atorvastatin. enzalutamide 40 mg Capsule 160 mg PO Q24H Qty: 120 5RF cyanocobalamin (vitamin B-12) 1,000 mcg Tablet 1,000 mcg PO DAILY Qty: 90 3RF ferrous sulfate 325 mg (65 mg iron) Tablet 325 mg PO DAILY Qty: 90 0RF aspirin 81 mg Tablet,Delayed Release (Dr/Ec) 81 mg PO DAILY Qty: 30 0RF Referrals: Avila Oliveira MD [Primary Care Provider] - <Harrison Bender DO - Last Filed: 07/14/21 17:54> Cosign ED Attending Cosignature Attestation: Dr Bender Co-Sign Statement: I was available for consultation during this patient's emergency department visit. This chart is signed by myself for administrative purposes only. I did not have direct contact with this patient during this visit. They were seen independently by the APC.
[2021-07-14 15:12] VITALS: TEMP 37.1
[2021-07-14 15:18] VITALS: BP 134/72; PULSE 84; RESP 16; O2SAT 96
== END 2021-07-14 15:19 | disposition home or self-care (01) ==
PROVIDERS: Emergency Provider Physician Assistant; Family Provider Internal Medicine; PCP Internal Medicine
DX: S71.151A Open bite, right thigh, initial encounter (principal); W54.0XXA Bitten by dog, initial encounter
CPT/HCPCS: 99281

== ENCOUNTER → 2021-09-09 08:49 | Outpatient (CLI) | payer MEDICARE, MEDICAID, SELFPAY ==
[2019-04-14 18:42] VITALS: BMI 22.7
--- NOTE | 2021-09-09 | DI.ECHO.S_ITS ---
[facility]---------+ [facility] +---------+ : : [address] : : : : [id number] : : : : Phone: [phone]+ Echocardiogram Report + + :Name: CHELSEA HOPKINS Study Date: 09/09/2021 Height: 68 in : :[facility] ReadingLocation: Weight: 220 lb : : Gender: Male BSA: 2.1 m2 : :: 1950 Age: 70 yrs BP: 143/88 mmHg: :Reason For Study: DILATED CARDIOMYOPATHY : :Ordering Physician: ASHER, : :LOU Performed By: Natalie Park : :Referring: LOU MARTINEZ : + + Interpretation Summary 1) Normal left ventricular thickness, size, wall motion, and systolic function (EF 55-60%). 2) Normal right ventricular size and function. 3) There is mild to moderate aortic regurgitation. 4) Compared to the Echo done 11/22/2019, LVEF has improved from 50-55% to 55-60% on this study but aortic regurgitation has increased from mild to mild- moderate on this study. Procedure: A two-dimensional transthoracic echocardiogram with color flow and Doppler was performed. The study quality was technically adequate. Comparison is made with the echocardiogram of 11/22/2019. The patient was in sinus rhythm with heart rates between 58-63 bpm during the exam. Left Ventricle: Proximal septal thickening is noted. The left ventricle is normal in size and wall thickness. The ejection fraction is estimated to be 55-60%. Left ventricular systolic function appears normal without focal wall motion abnormalities. Right Ventricle: The right ventricle is normal in size and function. Atria: The left atrium is moderately dilated. The right atrium is mildly dilated. There is no Doppler evidence for an interatrial shunt. Mitral Valve: The mitral valve leaflets appear borderline thickened, but open well. There is mild mitral regurgitation. Aortic Valve: The aortic valve is trileaflet. The aortic valve opens well. There is no aortic valve stenosis. There is mild to moderate aortic regurgitation. Tricuspid Valve: The tricuspid valve is normal in structure and function. There is mild tricuspid regurgitation. The right ventricular systolic pressure is estimated to be at least 27 mmHg based on an estimated right atrial pressure of 3 mm Hg. Pulmonic Valve: The pulmonic valve leaflets are thin and pliable; valve motion is normal. There is mild pulmonic regurgitation. Great Vessels: The aortic root is normal size. The dimensions of the ascending aorta are normal. The IVC is of normal diameter and collapses greater than 50% with a sniff. This suggests a low right atrial pressure of 3 mm Hg. Pericardium/ Pleura There is no pericardial effusion. There is no pleural effusion. MMode/2D Measurements & Calculations LVIDd: 5.1 cm LVOT diam: 2.0 cm LVIDs: 3.3 cm Ao root diam: 3.0 cm FS: 35.3 % asc Aorta Diam: 3.3 cm IVSd: 0.86 cm Ao Arch Diam (Prox Trans): 3.2 cm LVPWd: 0.89 cm LV evangelista. diameter/BSA (cm/m^2): 2.4 LV sys. diameter/BSA (cm/m^2): 1.6 LA A2 area: 24.5 cm2 RA long axis: 5.7 cm LA A4 area: 21.4 cm2 RA area: 22.9 cm2 LA length (vol): 5.9 cm RA vol: 78.7 ml LA vol: 75.5 ml RA : 37.0 ml/m2 LA vol index: 35.5 ml/m2 IVC diam: 1.4 cm RVD1 (basal): 3.6 cm TAPSE: 2.5 cm Doppler Measurements & Calculations Ao V2 max: 155.6 cm/sec LVOT Max Kiran: 85.7 cm/sec Ao V2 mean: 96.2 cm/sec LV V1 max P.9 mmHg Ao max P.7 mmHg LV V1 VTI: 18.6 cm Ao mean P.4 mmHg DONATO(I,D): 1.7 cm2 Ao V2 VTI: 34.4 cm DONATO(V,D): 1.8 cm2 sev ratio: 0.54 DONATO indexed to BSA (cm^2/m^2): 0.82 AI P1/2t: 672.5 msec AI dec slope: 193.5 cm/sec2 MV E max kiran: 61.3 cm/sec TR max kiran: 247.3 cm/sec MV A max kiran: 119.1 cm/sec TR max P.5 mmHg MV E/A: 0.51 PA V2 max: 74.9 cm/sec Med Peak E' Kiran: 4.3 cm/sec PA V2 mean: 50.0 cm/sec E/E' med: 14.4 PA mean P.2 mmHg Lat Peak E' Kiran: 4.6 cm/sec PA pr(Accel): 19.1 mmHg E/E' lat: 13.3 E/e' average: 13.8 MV dec time: 0.31 sec SV(OT): 60.1 ml Reading Physician:12:48 PM
== END ==
PROVIDERS: Family Provider Internal Medicine; PCP Internal Medicine; Referring Provider Internal Medicine Cardiovascular Disease; Visit Provider Internal Medicine Cardiovascular Disease
DX: I08.3 Combined rheumatic disorders of mitral, aortic and tricuspid valves (principal); I42.0 Dilated cardiomyopathy
CPT/HCPCS: 93306

== ENCOUNTER → 2022-06-09 15:14 | Outpatient (CLI) | payer MEDICARE, MEDICAID, SELFPAY ==
[2019-04-14 18:42] VITALS: BMI 22.7
[2022-06-09 16:08] LABS: Add Manual Diff / Slide Review NO; Basophils Absolute Auto 0 /uL (0-100); Basophils Percent Auto 0.3 % (0-2); Eosinophils Absolute Auto 100 /uL (0-450); Eosinophils Percent Auto 1.7 % (2-4); Hemoglobin 15.2 g/dL (13.5-17.5); Lymphocytes Absolute Auto 2000 /uL (1100-4500); Lymphocytes Percent Auto 27.6 % (25-40); Mean Corpuscular HGB Conc 33.8 % (30-36); Mean Corpuscular Hemoglobin 28.7 PG (26-34); Mean Corpuscular Volume 84.8 fL (80-100); Monocytes Absolute Auto 500 /uL (0-900); Monocytes Percent Auto 7.1 % (3-14); Neutrophils Absolute Auto 4700 /uL (1500-7000); Neutrophils Percent Auto 63.3 % (50-75); Platelet Count 138 X10^3/uL (150-400); Red Cell Distribution Width 15.4 % (11.6-14.8); White Blood Cell Count 7.4 X10^3/uL (4.5-11.0)
[2022-06-09 16:30] LABS: BUN Creatinine Ratio 21.4 (6-22); Blood Urea Nitrogen 22 mg/dL (9-20); Calcium 9.2 mg/dL (8.4-10.2); Carbon Dioxide 21 mmol/L (22-32); Chloride 105 mmol/L (98-107); Cholesterol 184 mg/dL (140-199); Estimated Glomerular Filt Rate > 60 mL/min (>60); Glucose 158 mg/dL (80-110); HDL Cholesterol 42 mg/dL (40-60); LDL Cholesterol Calculated 67 mg/dL (<100); Sodium 137 mmol/L (137-145); Triglycerides 377 mg/dL (35-150)
[2022-06-09 16:39] LABS: HEMOLYSIS 86 (0-50); Potassium 4.8 mmol/L (3.4-5.1)
== END ==
PROVIDERS: Family Provider Internal Medicine; PCP Internal Medicine; Referring Provider Internal Medicine Cardiovascular Disease; Visit Provider Internal Medicine Cardiovascular Disease
DX: E78.5 Hyperlipidemia, unspecified (principal); I10 Essential (primary) hypertension
CPT/HCPCS: 36415; 80048; 80061; 85025

== ENCOUNTER → 2022-07-12 10:00 | Outpatient (CLI) | payer MEDICARE, MEDICAID, SELFPAY ==
[2019-04-14 18:42] VITALS: BMI 22.7
--- NOTE | 2022-07-12 10:02 | DI.RAD.S_ITS ---
PROCEDURE: XR KNEE RT 3V INDICATIONS: RIGHT KNEE PAIN TECHNIQUE: 3 views of the knee were acquired. COMPARISON: None. FINDINGS: Bones: No fractures or dislocations. No suspicious bony lesions. There is moderate lateral and medial femorotibial joint space narrowing seen, with associated remodeling changes including subchondral sclerosis and osteophyte formation along the jointline. Soft tissues: There is a [id number] joint effusion. No suspicious soft tissue calcifications. IMPRESSION: Generalized right knee degenerative changes are seen by plain film. If it would be helpful for clinical management decision making, please consider a dedicated, scheduled knee MRI for further evaluation (assuming that there is no contraindication). Dictated by: Renato Henriquez M.D. on 07/12/2022 at 10:21 Approved by: Renato Henriquez M.D. on 07/12/2022 at 10:21
== END ==
PROVIDERS: Family Provider Internal Medicine; PCP Internal Medicine; Referring Provider Physical Medicine & Rehabilitation; Visit Provider Physical Medicine & Rehabilitation
DX: M25.461 Effusion, right knee (principal); M17.11 Unilateral primary osteoarthritis, right knee; M25.561 Pain in right knee
CPT/HCPCS: 73562

== ENCOUNTER → 2023-02-25 | Outpatient (CLI) | payer MEDICARE, MEDICAID, SELFPAY ==
[2019-04-14 18:42] VITALS: BMI 22.7
--- NOTE | 2023-02-25 | DI.RAD.S_ITS ---
PROCEDURE: XR DEXA AXIAL SKELETON INDICATIONS: MONITORING FOR ANDROGEN DEPRIVATION THERAPY COMPARISON: None. FINDINGS: This blank DEXA report has been sent in error by the PACS system. The correct and complete report will be forthcoming in 1-2 days. Thank you for your patience and understanding. Dictated by: Harrison Mg M.D. on 02/25/2023 at 15:36 Approved by: Harrison Mg M.D. on 02/25/2023 at 15:36
--- NOTE | 2023-02-25 11:57 | DI.DEXA.S_ITS ---
Bone Density Report Name: CHELSEA HOPKINS Age: 72 Sex: Male Ethnicity: White Date of : 1950 Indication: screening for osteoporosis; Referring Provider: AMBER LI Study: Bone densitometry was performed. Exam Date: February 25, 2023 Accession number: [id number] Bone Density: Region BMD T-score Z-score Classification AP Spine(L1-L4) 1.222 1.6 2.2 Normal Femoral Neck (Left) 0.749 -0.9 0.0 Normal Total Hip (Left) 0.992 0.4 0.5 Normal Femoral Neck (Right) 0.797 -0.5 0.3 Normal Total Hip (Right) 0.980 0.3 0.4 Normal Total Hip Mean 0.986 0.4 0.5 Normal World Health Organization criteria for BMD impression classify patients as: Normal (T-score at or above -1.0), Osteopenia (T-score between -1.0 and -2.5), or Osteoporosis (T-score at or below -2.5). 10-year Fracture Risk: FRAX not reported because: All T-scores for Spine Total, Hip Total, Femoral Neck at or above -1.0 Impression: The patient has normal bone mass. Discussion: BONE DENSITY IS ABOVE THE MINIMUM DESIRABLE LEVEL AT ALL SKELETAL SITES TESTED. This patient?s bone mineral density is above the minimum desirable level (T-score -1.0 or better) at all sites measured. The patient should follow a healthful lifestyle (good nutrition with adequate calcium and vitamin D, and appropriate weight-bearing exercise). Follow-Up: Consider repeating this study in 5 years or sooner if there is some new clinical indication. Reported by: EVELYN HINSON M.D. on 02/25/2023 12:08:00 PM.
== END ==
PROVIDERS: Family Provider Internal Medicine; PCP Internal Medicine; Referring Provider Internal Medicine Hematology & Oncology; Visit Provider Internal Medicine Hematology & Oncology
DX: Z79.818 Long term (current) use of other agents affecting estrogen receptors and estrogen levels (principal); C61 Malignant neoplasm of prostate; C79.51 Secondary malignant neoplasm of bone
CPT/HCPCS: 77080

== ENCOUNTER → 2023-04-16 10:53 | Outpatient (CLI) | payer MEDICARE, MEDICAID, SELFPAY ==
[2019-04-14 18:42] VITALS: BMI 22.7
[2023-04-16 11:12] LABS: Add Manual Diff / Slide Review NO; Basophils Absolute Auto 0 /uL (0-100); Basophils Percent Auto 0.6 % (0-2); Eosinophils Absolute Auto 100 /uL (0-450); Eosinophils Percent Auto 1.7 % (2-4); Hematocrit 41.3 % (41-53); Hemoglobin 13.7 g/dL (13.5-17.5); Lymphocytes Absolute Auto 1300 /uL (1100-4500); Lymphocytes Percent Auto 22.1 % (25-40); Mean Corpuscular HGB Conc 33.1 % (30-36); Mean Corpuscular Hemoglobin 29.1 PG (26-34); Mean Corpuscular Volume 87.9 fL (80-100); Monocytes Absolute Auto 700 /uL (0-900); Monocytes Percent Auto 12.4 % (3-14); Neutrophils Absolute Auto 3600 /uL (1500-7000); Neutrophils Percent Auto 63.2 % (50-75); Platelet Count 133 X10^3/uL (150-400); Red Cell Distribution Width 15.4 % (11.6-14.8); White Blood Cell Count 5.7 X10^3/uL (4.5-11.0)
[2023-04-16 11:22] LABS: Alanine Aminotransferase 22 IU/L (<50); Albumin 4.1 g/dL (3.5-5.0); Albumin Globulin Ratio 1.1 (1.0-2.8); Alkaline Phosphatase 100 U/L (38-126); Aspartate Aminotransferase 27 IU/L (17-59); BUN Creatinine Ratio 20.6 (6-22); Bilirubin Total 0.7 mg/dL (0.2-1.3); Blood Urea Nitrogen 20 mg/dL (9-20); Carbon Dioxide 31 mmol/L (22-32); Chloride 102 mmol/L (98-107); Estimated Glomerular Filt Rate > 60 mL/min (>60); Globulin 3.7 g/dL (1.7-4.1); Glucose 114 mg/dL (80-110); HEMOLYSIS < 15 (0-50); Potassium 3.9 mmol/L (3.4-5.1); Sodium 137 mmol/L (137-145); Total Protein 7.8 g/dL (6.3-8.2)
[2023-04-16 11:53] LABS: Prostate Specific Antigen < 0.064 ng/mL (0.10-4.00)
[2023-04-16 11:54] LABS: Testosterone 14.5 ng/dL (71.8-623)
[2023-04-16 13:29] LABS: Aspartate Aminotransferase 29 IU/L (17-59); BUN Creatinine Ratio 20.6 (6-22); Blood Urea Nitrogen 20 mg/dL (9-20); Calcium 9.9 mg/dL (8.4-10.2); Carbon Dioxide 26 mmol/L (22-32); Chloride 101 mmol/L (98-107); Cholesterol 188 mg/dL (140-199); Estimated Glomerular Filt Rate > 60 mL/min (>60); Glucose 108 mg/dL (80-110); HDL Cholesterol 49 mg/dL (40-60); HEMOLYSIS < 15 (0-50); LDL Cholesterol Calculated 101 mg/dL (<100); Potassium 4.4 mmol/L (3.4-5.1); Sodium 137 mmol/L (137-145); Triglycerides 188 mg/dL (35-150)
== END ==
PROVIDERS: Internal Medicine Medical Oncology; Family Provider Internal Medicine; PCP Internal Medicine; Referring Provider Internal Medicine; Visit Provider Internal Medicine
DX: I50.9 Heart failure, unspecified (principal); I10 Essential (primary) hypertension; C79.82 Secondary malignant neoplasm of genital organs; E78.5 Hyperlipidemia, unspecified
CPT/HCPCS: 36415; 80048; 80053; 80061; 84153; 84403; 84450; 85025

== ENCOUNTER 2023-06-24 11:15 | Outpatient (RCR) | payer MEDICARE, MEDICAID, SELFPAY ==
[2019-04-14 18:42] VITALS: BMI 22.7
--- NOTE | 2023-04-01 16:00 | PT.OPPOC ---
Physical, Occupational & Speech Therapy At Current Diagnoses Unilateral primary osteoarthritis, right knee (04/01/23) Pain in right knee (04/01/23) Other intervertebral disc displacement, lumbosacral region (04/01/23) Difficulty in walking, not elsewhere classified (04/01/23) Visit Care Team Role Provider Type Avila Oliveira MD Family Provider Physician Primary Care Provider Specialty: Internal Medicine Address: [address] [place] [address], [id number] Email: [email or web address] Silverio DO Attending Provider Physician Referring Provider Specialty: Interventional Radiology Physiatry Pain Management Address: [facility] [place], [address] Email: [email or web address] Plan Of Care PT-OP-T Assessment and Plan Start: 04/01/23 08:10 Freq: Status: Active Protocol: Document 04/01/23 08:12 SAK (Rec: 04/01/23 08:57 [facility] [id number]) Physical Therapy Assessment Rehab Potential Rehabilitation Potential Good Evaluation Complexity Number of Personal Factors/Comorbidities 1-2 Number of Body Systems Impaired 3 Clinical Presentation at Evaluation Evolving Impairments Impairments Activity Tolerance,Gait,Pain, Posture Goals radicular symptoms right LE [employer] Hand Goal (LTG) eliminate right LE radicular symptoms LTG Duration 07/01/23 postural dysfunction Impairment severe lateral shift and forward bent posture T[employer] Trimmer Hand Goal (LTG) Patient to demonstrate minimal postural dysfunction sitting and standing LTG Duration 07/01/23 antalgic gait Short Term Goal (STG) Patient able to ambulate with minimal to no limp with use of appropriate assistive device on level surfaces STG Duration 05/21/23 [facility] Goal (LTG) Patient will be able to ambulate without assistive device and with minimal to no limp on all surfaces including stairs LTG Duration 07/01/23 Oswestry disability index score Impairment 50% Short Term Goal (STG) Improved Oswestry score to no greater than 35% as measure of improved spinal function and activity tolerance STG Duration 05/21/23 [facility] Goal (LTG) Improve Oswestry score to no greater than 20% as measure of improved spinal function and activity tolerance. LTG Duration 07/01/23 Lower extremity functional scale Impairment 35% Short Term Goal (STG) Improve LEFS score to at least 50% as measure of improved right knee function and activity tolerance STG Duration 05/21/23 [employer] Hand Goal (LTG) Improve LEFS to at least 75% as measure of improved right knee function and activity tolerance LTG Duration 07/01/23 Assessment Summary Assessment Patient presents to PT with function limiting pain in right knee and lumbar spine with radicular symptoms with moderate to severe postural dysfunction due to the pain. Patient not currently using an assistive device or brace. He is unable to work due to the pain and his activity tolerance is minimal. Prior x -ray right knee in June 2022 showed degenerative changes. No recent imaging of spine available but MRI from 2020 showed 1. Multilevel degenerative disc and facet disease, as well as ligamentum flavum hypertrophy and epidural lipomatosis. 2. Multilevel canal stenoses, worst at L4-L5, where there is severe canal stenosis. Moderate canal stenosis at L3- L4 and L5-S1. 3. Multilevel foraminal stenoses, worst at L5-S1 where there is associated intraforaminal nerve root compression. Has done prior PT and reports has found it helpful. Decrease in radicular symptoms and LBP with manual traction indicating nerve root impingement. Objective evaluation difficult due to irritability of symptoms. Physical Therapy Plan Frequency and Duration Frequency of Treatment 2x/Week Duration of treatment (weeks) 12 Plan of Care Start Date 04/01/23 Plan of Care End Date 07/01/23 Therapeutic Interventions Therapeutic Interventions Home Exercise Program,Manual Therapy,Neuromuscular Re- education,Patient/Caregiver Education,Self-Care/Home Management,Soft Tissue Mobilization,Taping, Therapeutic Activities, Therapeutic Exercises Modalities Cold Pack/Ice Massage,Electric Stimulation,Hot Packs, Infrared Therapy,Traction- Mechanical Next Visit Focus/Plan Next Note Type Treatment Note Next Visit Plan Manual lumbar traction, consider [employer]ah home traction unit. Gentle ther ex for postural correction and gentle ROM of lumbar spine, hips, and knee. IFES and ice lumbar spine, knee if helpful last session. Plan of Care Dates Plan of Care Start Date 04/01/23 Plan of Care End Date 07/01/23 Electronically Signed by: Mulu Garibay, PT 04/05/23 0857 If you are in agreement with this Plan of Care, please return a signed and dated copy. I have reviewed this Plan of Care and certify that the skilled therapy services above are required to meet the patient?s needs. Physician Signature Date Printed Name and Credentials Clinical Instructor Signature Printed Name and Credentials
--- NOTE | 2023-04-01 16:00 | PT.OIE ---
Current Diagnoses Unilateral primary osteoarthritis, right knee (04/01/23) Pain in right knee (04/01/23) Other intervertebral disc displacement, lumbosacral region (04/01/23) Difficulty in walking, not elsewhere classified (04/01/23) Past Medical History (Last Reviewed 07/14/22 @ 15:46 by Jag Sliverio DO) Allergic rhinitis Cellulitis of right buttock Chronic kidney disease (CKD) Congestive heart failure Facet arthropathy, lumbar Herniated nucleus pulposus, L5-S1, right Herniated nucleus pulposus, lumbar Hyperlipidemia Hypertension Medicare annual wellness visit, initial No chronic problems Obesity (BMI 30.0-34.9) Rash Right knee DJD Past Surgical History (Last Reviewed 07/14/22 @ 15:46 by Jag Silverio DO) Hx of hand surgery (2001) Visit Care Team Role Provider Type Avila Oliveira MD Family Provider Physician Primary Care Provider Specialty: Internal Medicine Address: [address] [place] [address] Email: [email or web address] Silverio DO Attending Provider Physician Referring Provider Specialty: Interventional Radiology Physiatry Pain Management Address: [address] [place] [address], [facility] Email: [email or web address] Physical Therapy Initial Evaluation PT-OP-A Visit Information Start: 04/01/23 08:10 Freq: Status: Active Protocol: Document 04/01/23 08:12 SAK (Rec: 04/01/23 08:57 [facility] [id number]) Out-Patient Physical Therapy Visit Information Visit Information Visit Type Initial Evaluation Visit Start Time 08:15 Visit Stop Time 09:11 Total Visit Minutes 56 Visit Number 1 Evaluation Information Evaluation Date 04/01/23 PT-OP-B Current Condition Start: 04/01/23 08:10 Freq: Status: Active Protocol: Document 04/01/23 08:12 SAK (Rec: 04/01/23 08:57 [facility] [id number]) Current Condition History of Current Condition Onset Date January 30 Current Complaints right knee pain, LBP History of Current Condition Works at a [employer], was on a ladder working on trailer and fell twisting his knee and hitting his knee on boat stand . Also injured his back when he landed on one of the boat stands during a fall. Reports his knee was very swollen. x-rays June 2022 showed arthrits in right knee. Had injection in right knee 02/09/23. Has used ice and heat, rubs his knee. Is off work at this time. Pain in back increases with lifting and bending over. Decreases a little with use of ice and rubbing. Walks for exercise but pain increases with walking. Also reports stage 4 prostate cancer; has Lupron injections every 2 months and taking Expandia medication orally. Sees file machine operator and is taking cardiac medications . Uncertain extent of cancer spread. REports right knee is now prone to twisting. Prior Treatments and Tests injection right knee Treatment Goals Patient/Caregiver Goals decrease pain, improve activity tolerance. Prior Functional Status Baseline Function- ADL's Independent Baseline Function- Mobility Independent Baseline Function- Gait independent, no limp Current Functional Impairments (Reported) Functional Limitations- ADL's painful Functional Limitations- Mobility/Gait painful, postural dysfunction, limited primarily household Functional Limitations- Work/School unable PT-OP-C Subjective Start: 04/01/23 08:10 Freq: Status: Active Protocol: Document 04/01/23 08:12 [facility] (Rec: 04/01/23 08:57 [facility] [id number]) Patient Questionnaires Lower Extremity Functional Scale LEFS Score 35% Oswestry Low Back Index Oswestry Score 50% OP-PT Pain Assessment Location right knee Intensity 5 Description Aching,Pressure,Tender Frequency Frequent Pain Aggravating Factors Activity Pain Alleviating Factors Inactivity lumbar spine Intensity 5 Description Aching,Cramping,Sharp,Shooting ,Spasm,Tender Frequency Frequent Pain Aggravating Factors Position,Activity Pain Alleviating Factors None Home Pain Medication Use Pain Medications Used Yes Pain Behaviors Pain Behaviors Facial Grimacing,Guarding Comments Pain Comments pain in knee and back increases when upright, with activity PT-OP-F Manual Assessment Start: 04/01/23 08:10 Freq: Status: Active Protocol: Document 04/01/23 08:12 [facility] (Rec: 04/05/23 08:57 [facility] [id number]) Manual Assessments Soft Tissue Assessment Soft Tissue Mobility Assessment decrease soft tissue mobility lumbar paraspinals with tenderness to palpation PT-OP-G Mobility & Gait Start: 04/01/23 08:10 Freq: Status: Active Protocol: Document 04/01/23 08:12 [facility] (Rec: 04/05/23 08:57 [facility] [id number]) OP Gait Assessment Gait Gait Assistance Required: Independent Assistive Devices Assistive Device None Gait Deviations General Gait Pattern Antalgic,Flexed Trunk,Lateral Trunk Lean Factors Limiting Gait Function Factors Limiting Gait Function Decreased Activity Tolerance, Pain PT-OP-H Neuro Start: 04/01/23 08:10 Freq: Status: Active Protocol: Document 04/01/23 08:12 [facility] (Rec: 04/01/23 08:57 [facility] [id number]) Sensation Evaluation Gross Sensation Gross Sensation Right LE Impaired Sensation Description Tingling PT-OP-J Posture/Palpation/Skin Start: 04/01/23 08:10 Freq: Status: Active Protocol: Document 04/01/23 08:12 [facility] (Rec: 04/01/23 08:57 [facility] [id number]) Posture Evaluation Position Standing Head/C-Spine Posture C-Spine Flattened T-Spine Posture Increased Kyphosis L-Spine Posture Decreased Lordosis Knee Posture (R) Genu Varus Palpation Assessment Location lumbar spine Palpation Location L3-L5 Palpation Findings Muscle Guarding,Tenderness right knee Palpation Location posterior Palpation Findings Edema,Tenderness Skin Assessment Edema Assessment right knee Edema Appearance Taut Subjective Edema Description Pain PT-OP-K Range of Motion Start: 04/01/23 08:10 Freq: Status: Active Protocol: Document 04/01/23 08:12 [facility] (Rec: 04/01/23 08:57 [facility] [id number]) Lumbar Spine Range of Motion Lumbar Spine Active Testing Position Standing Flexion 25 Extension 0 Rotation Left 15 Rotation Right 10 Lateral Flexion Left 25 Lateral Flexion Right 20 ROM Limitations Pain Hip Goniometric Range of Motion Hip Right Flexion w/Knee Flexed 90 Straight Leg Raise 30 Extension 0 Abduction 20 Internal Rotation 0 External Rotation 15 left Hip ROM WFL No Flexion w/Knee Flexed 85 Straight Leg Raise 25 Extension 0 Abduction 25 Internal Rotation 10 External Rotation 35 Hip ROM Limitations Hip ROM Limitations Pain Knee Goniometric Range of Motion Knee Right Knee ROM WFL No Flexion Active (degrees) 95 Extension Active (degrees) 22 Left Knee ROM WFL Yes Knee ROM Limitations Knee ROM Limitations Pain,Swelling Ankle and Foot Goniometric Range of Motion Ankle and Foot romero Ankle/Foot ROM WFL Yes PT-OP-L Special Tests Start: 04/01/23 08:10 Freq: Status: Active Protocol: Document 04/01/23 08:12 [facility] (Rec: 04/05/23 08:55 [facility] [id number]) Special Tests Knee Special Tests Apley's Compression Test Results + Valgus- 0 Degrees Test Results - Varus- 0 Degrees Test Results +R Elva Test Test Results +R Anterior Draw Test Results - PT-OP-M Strength Start: 04/01/23 08:10 Freq: Status: Active Protocol: Document 04/01/23 08:12 [facility] (Rec: 04/05/23 08:55 [facility] [id number]) Hip Strength Hip Manual Muscle Testing Right Flexion (L2) 3- Fair- Extension (S1) 3- Fair- Abduction 3- Fair- Adduction 3 Fair External Rotation 3 Fair Internal Rotation 3+ Fair+ Left Flexion (L2) 4 Good Extension (S1) 4 Good Abduction 4 Good Adduction 4 Good External Rotation 4- Good- Internal Rotation 4 Good Knee Strength Knee Manual Muscle Testing Right Flexion (S2) 4 Good Extension (L3) 4- Good- Comments pain with resistance Left Flexion (S2) 5 Normal Extension (L3) 5 Normal Ankle/Foot Strength Ankle and Foot Manual Muscle Testing Right Dorsiflexion (L4) 4 Good Plantarflexion (S1) 4 Good Left Dorsiflexion (L4) 5 Normal Plantarflexion (S1) 5 Normal Toe Strength Toe Manual Muscle Testing Right Great Toe Extension 4 Good Left Great Toe Extension 5 Normal PT-OP-Q Treatments Start: 04/01/23 08:10 Freq: Status: Active Protocol: Document 04/01/23 08:12 [facility] (Rec: 04/05/23 08:55 [facility] [id number]) Self-Care/Home Management Treatment Education Patient Education Home Exercise Program,Pain Management,Posture PT-OP-R Modalities Start: 04/01/23 08:10 Freq: Status: Active Protocol: Document 04/01/23 08:12 [facility] (Rec: 04/01/23 08:57 [facility] [id number]) Electric Stimulation Electric Stimulation RIGHT KNEE Target/Sweep Sweep Patient Position Hooklying Combined With Heat/Cold Cold Pack Hot Pack/Cold Pack Treatment Cold Pack Location lumbar spine Patient Position Hooklying Treatment Duration (minutes) 10 Patient Tolerance Good PT-OP-T Assessment and Plan Start: 04/01/23 08:10 Freq: Status: Active Protocol: Document 04/01/23 08:12 [facility] (Rec: 04/01/23 08:57 [facility] [id number]) Physical Therapy Assessment Rehab Potential Rehabilitation Potential Good Evaluation Complexity Number of Personal Factors/Comorbidities 1-2 Number of Body Systems Impaired 3 Clinical Presentation at Evaluation Evolving Impairments Impairments Activity Tolerance,Gait,Pain, Posture Goals radicular symptoms right LE Intermediate Goal (LTG) eliminate right LE radicular symptoms LTG Duration 07/01/23 postural dysfunction Impairment severe lateral shift and forward bent posture Intermediate Goal (LTG) Patient to demonstrate minimal postural dysfunction sitting and standing LTG Duration 07/01/23 antalgic gait Short Term Goal (STG) Patient able to ambulate with minimal to no limp with use of appropriate assistive device on level surfaces STG Duration 05/21/23 Intermediate Goal (LTG) Patient will be able to ambulate without assistive device and with minimal to no limp on all surfaces including stairs LTG Duration 07/01/23 Oswestry disability index score Impairment 50% Short Term Goal (STG) Improved Oswestry score to no greater than 35% as measure of improved spinal function and activity tolerance STG Duration 05/21/23 Intermediate Goal (LTG) Improve Oswestry score to no greater than 20% as measure of improved spinal function and activity tolerance. LTG Duration 07/01/23 Lower extremity functional scale Impairment 35% Short Term Goal (STG) Improve LEFS score to at least 50% as measure of improved right knee function and activity tolerance STG Duration 05/21/23 Intermediate Goal (LTG) Improve LEFS to at least 75% as measure of improved right knee function and activity tolerance LTG Duration 07/01/23 Assessment Summary Assessment Patient presents to PT with function limiting pain in right knee and lumbar spine with radicular symptoms with moderate to severe postural dysfunction due to the pain. Patient not currently using an assistive device or brace. He is unable to work due to the pain and his activity tolerance is minimal. Prior x -ray right knee in June 2022 showed degenerative changes. No recent imaging of spine available but MRI from 2020 showed 1. Multilevel degenerative disc and facet disease, as well as ligamentum flavum hypertrophy and epidural lipomatosis. 2. Multilevel canal stenoses, worst at L4-L5, where there is severe canal stenosis. Moderate canal stenosis at L3- L4 and L5-S1. 3. Multilevel foraminal stenoses, worst at L5-S1 where there is associated intraforaminal nerve root compression. Has done prior PT and reports has found it helpful. Decrease in radicular symptoms and LBP with manual traction indicating nerve root impingement. Objective evaluation difficult due to irritability of symptoms. Physical Therapy Plan Frequency and Duration Frequency of Treatment 2x/Week Duration of treatment (weeks) 12 Plan of Care Start Date 04/01/23 Plan of Care End Date 07/01/23 Therapeutic Interventions Therapeutic Interventions Home Exercise Program,Manual Therapy,Neuromuscular Re- education,Patient/Caregiver Education,Self-Care/Home Management,Soft Tissue Mobilization,Taping, Therapeutic Activities, Therapeutic Exercises Modalities Cold Pack/Ice Massage,Electric Stimulation,Hot Packs, Infrared Therapy,Traction- Mechanical Next Visit Focus/Plan Next Note Type Treatment Note Next Visit Plan Manual lumbar traction, consider [employer] home traction unit. Gentle ther ex for postural correction and gentle ROM of lumbar spine, hips, and knee. IFES and ice lumbar spine, knee if helpful last session.
--- NOTE | 2023-04-06 09:03 | PT.OTN ---
Current Diagnoses Unilateral primary osteoarthritis, right knee (04/06/23) Pain in right knee (04/06/23) Other intervertebral disc displacement, lumbosacral region (04/06/23) Difficulty in walking, not elsewhere classified (04/06/23) Physical Therapy Treatment Note PT-OP-A Visit Information Start: 04/01/23 08:10 Freq: Status: Active Protocol: Document 04/06/23 08:12 [facility] (Rec: 04/06/23 09:01 [facility] [id number]) Out-Patient Physical Therapy Visit Information Visit Information Visit Type Treatment Note Visit Note Feels electrical stimulation helpful to knee, wants to turn it up this time. Visit Start Time 08:12 Visit Number 2 Evaluation Information Evaluation Date 04/01/23 PT-OP-B Current Condition Start: 04/01/23 08:10 Freq: Status: Active Protocol: Document 04/06/23 08:12 [facility] (Rec: 04/06/23 09:01 [facility] [id number]) Current Condition History of Current Condition Onset Date January 30 Current Complaints right knee pain, LBP History of Current Condition Works at a [employer], was on a ladder working on trailer and fell twisting his knee and hitting his knee on boat stand . Also injured his back when he landed on one of the boat stands during a fall. Reports his knee was very swollen. x-rays June 2022 showed arthrits in right knee. Had injection in right knee 02/09/23. Has used ice and heat, rubs his knee. Is off work at this time. Pain in back increases with lifting and bending over. Decreases a little with use of ice and rubbing. Walks for exercise but pain increases with walking. Also reports stage 4 prostate cancer; has Lupron injections every 2 months and taking Expandia medication orally. Sees field education director and is taking cardiac medications . Uncertain extent of cancer spread. REports right knee is now prone to twisting. Prior Treatments and Tests injection right knee Treatment Goals Patient/Caregiver Goals decrease pain, improve activity tolerance. PT-OP-C Subjective Start: 04/01/23 08:10 Freq: Status: Active Protocol: Document 04/06/23 08:12 [facility] (Rec: 04/06/23 09:02 [facility] [id number]) OP-PT Subjective Patient Comments Patient Comments Patient reports compliant to HEP. Liked IFES and ice to knee and ice to low back. Patient Reported Progress Improving PT-OP-F Manual Assessment Start: 04/01/23 08:10 Freq: Status: Active Protocol: Document 04/01/23 08:12 [facility] (Rec: 04/05/23 08:57 [facility] [id number]) Manual Assessments Soft Tissue Assessment Soft Tissue Mobility Assessment decrease soft tissue mobility lumbar paraspinals with tenderness to palpation PT-OP-G Mobility & Gait Start: 04/01/23 08:10 Freq: Status: Active Protocol: Document 04/01/23 08:12 [facility] (Rec: 04/05/23 08:57 [facility] [id number]) OP Gait Assessment Gait Gait Assistance Required: Independent Assistive Devices Assistive Device None Gait Deviations General Gait Pattern Antalgic,Flexed Trunk,Lateral Trunk Lean Factors Limiting Gait Function Factors Limiting Gait Function Decreased Activity Tolerance, Pain PT-OP-H Neuro Start: 04/01/23 08:10 Freq: Status: Active Protocol: Document 04/01/23 08:12 [facility] (Rec: 04/01/23 08:57 [facility] [id number]) Sensation Evaluation Gross Sensation Gross Sensation Right LE Impaired Sensation Description Tingling PT-OP-J Posture/Palpation/Skin Start: 04/01/23 08:10 Freq: Status: Active Protocol: Document 04/01/23 08:12 [facility] (Rec: 04/01/23 08:57 [facility] [id number]) Posture Evaluation Position Standing Head/C-Spine Posture C-Spine Flattened T-Spine Posture Increased Kyphosis L-Spine Posture Decreased Lordosis Knee Posture (R) Genu Varus Palpation Assessment Location lumbar spine Palpation Location L3-L5 Palpation Findings Muscle Guarding,Tenderness right knee Palpation Location posterior Palpation Findings Edema,Tenderness Skin Assessment Edema Assessment right knee Edema Appearance Taut Subjective Edema Description Pain PT-OP-K Range of Motion Start: 04/01/23 08:10 Freq: Status: Active Protocol: Document 04/01/23 08:12 [facility] (Rec: 04/01/23 08:57 [facility] [id number]) Lumbar Spine Range of Motion Lumbar Spine Active Testing Position Standing Flexion 25 Extension 0 Rotation Left 15 Rotation Right 10 Lateral Flexion Left 25 Lateral Flexion Right 20 ROM Limitations Pain Hip Goniometric Range of Motion Hip Right Flexion w/Knee Flexed 90 Straight Leg Raise 30 Extension 0 Abduction 20 Internal Rotation 0 External Rotation 15 left Hip ROM WFL No Flexion w/Knee Flexed 85 Straight Leg Raise 25 Extension 0 Abduction 25 Internal Rotation 10 External Rotation 35 Hip ROM Limitations Hip ROM Limitations Pain Knee Goniometric Range of Motion Knee Right Knee ROM WFL No Flexion Active (degrees) 95 Extension Active (degrees) 22 Left Knee ROM WFL Yes Knee ROM Limitations Knee ROM Limitations Pain,Swelling Ankle and Foot Goniometric Range of Motion Ankle and Foot romero Ankle/Foot ROM WFL Yes PT-OP-L Special Tests Start: 04/01/23 08:10 Freq: Status: Active Protocol: Document 04/01/23 08:12 [facility] (Rec: 04/05/23 08:55 [facility] [id number]) Special Tests Knee Special Tests Apley's Compression Test Results + Valgus- 0 Degrees Test Results - Varus- 0 Degrees Test Results +R Elva Test Test Results +R Anterior Draw Test Results - PT-OP-M Strength Start: 04/01/23 08:10 Freq: Status: Active Protocol: Document 04/01/23 08:12 [facility] (Rec: 04/05/23 08:55 [facility] [id number]) Hip Strength Hip Manual Muscle Testing Right Flexion (L2) 3- Fair- Extension (S1) 3- Fair- Abduction 3- Fair- Adduction 3 Fair External Rotation 3 Fair Internal Rotation 3+ Fair+ Left Flexion (L2) 4 Good Extension (S1) 4 Good Abduction 4 Good Adduction 4 Good External Rotation 4- Good- Internal Rotation 4 Good Knee Strength Knee Manual Muscle Testing Right Flexion (S2) 4 Good Extension (L3) 4- Good- Comments pain with resistance Left Flexion (S2) 5 Normal Extension (L3) 5 Normal Ankle/Foot Strength Ankle and Foot Manual Muscle Testing Right Dorsiflexion (L4) 4 Good Plantarflexion (S1) 4 Good Left Dorsiflexion (L4) 5 Normal Plantarflexion (S1) 5 Normal Toe Strength Toe Manual Muscle Testing Right Great Toe Extension 4 Good Left Great Toe Extension 5 Normal PT-OP-Q Treatments Start: 04/01/23 08:10 Freq: Status: Active Protocol: Document 04/06/23 08:12 [facility] (Rec: 04/06/23 09:01 [facility] [id number]) Cardio Equipment Recumbent Stepper (Sci-Fit) Duration (Minutes) 6 Resistance 1 Seat Position 12 Gym Equipment Cable Column (Body Solid) hamstring curl Resistance 40 Reps/Time 10x2 Shuttle Recovery Unilateral Squats Resistance 37 Shuttle Recovery Platform Stable Reps/Time 10x2 Bilateral Squats Details cues for keeping knees apart Resistance 50 Shuttle Recovery Platform Stable Reps/Time 10x2 Therapeutic Exercises Supine Exercises TrA Reps/Minutes 10x supine clam Equipment Used L2 Reps/Minutes 10x glut sets Reps/Minutes 10x Comments progress to bridge june Reps/Minutes 10x ankle pumps Reps/Minutes 10x knee to chest Supine Exercise Name DKTC Reps/Minutes 10x overhead stretch Reps/Minutes 2x30 Manual Therapy Treatment Manual Traction l/s Details strap, traction bench under UE 's Reps/Duration 10 min PT-OP-R Modalities Start: 04/01/23 08:10 Freq: Status: Active Protocol: Document 04/06/23 08:12 [facility] (Rec: 04/06/23 09:02 [facility] [id number]) Electric Stimulation Electric Stimulation RIGHT KNEE Duration (Minutes) 10 Intensity 47 Target/Sweep Sweep Patient Position Hooklying Combined With Heat/Cold Cold Pack PT-OP-T Assessment and Plan Start: 04/01/23 08:10 Freq: Status: Active Protocol: Document 04/06/23 08:12 [facility] (Rec: 04/06/23 09:01 [facility] [id number]) Physical Therapy Assessment Impairments Impairments Activity Tolerance,Gait,Pain, Posture Goals radicular symptoms right LE [facility] Goal (LTG) eliminate right LE radicular symptoms LTG Duration 07/01/23 postural dysfunction Impairment severe lateral shift and forward bent posture [facility] Goal (LTG) Patient to demonstrate minimal postural dysfunction sitting and standing LTG Duration 07/01/23 antalgic gait Short Term Goal (STG) Patient able to ambulate with minimal to no limp with use of appropriate assistive device on level surfaces STG Duration 05/21/23 Local Announcer Goal (LTG) Patient will be able to ambulate without assistive device and with minimal to no limp on all surfaces including stairs LTG Duration 07/01/23 Oswestry disability index score Impairment 50% Short Term Goal (STG) Improved Oswestry score to no greater than 35% as measure of improved spinal function and activity tolerance STG Duration 05/21/23 [facility] Goal (LTG) Improve Oswestry score to no greater than 20% as measure of improved spinal function and activity tolerance. LTG Duration 07/01/23 Lower extremity functional scale Impairment 35% Short Term Goal (STG) Improve LEFS score to at least 50% as measure of improved right knee function and activity tolerance STG Duration 05/21/23 [facility] Goal (LTG) Improve LEFS to at least 75% as measure of improved right knee function and activity tolerance LTG Duration 07/01/23 Assessment Summary Assessment Improved posture today with decreased shift. Patient reports good compliance to HEP . Dec pain with manual traction, ex, IFES and ice. Physical Therapy Plan Frequency and Duration Frequency of Treatment 2x/Week Duration of treatment (weeks) 12 Plan of Care Start Date 04/01/23 Plan of Care End Date 07/01/23 Therapeutic Interventions Therapeutic Interventions Home Exercise Program,Manual Therapy,Neuromuscular Re- education,Patient/Caregiver Education,Self-Care/Home Management,Soft Tissue Mobilization,Taping, Therapeutic Activities, Therapeutic Exercises Modalities Cold Pack/Ice Massage,Electric Stimulation,Hot Packs, Infrared Therapy,Traction- Mechanical Next Visit Focus/Plan Next Note Type Treatment Note Next Visit Plan Continue gentle ther ex progression. Add shallow squats with mirror for visual feedback, core progression, [place] Home traction unit as indicated.
--- NOTE | 2023-04-08 09:05 | PT.OTN ---
Current Diagnoses Unilateral primary osteoarthritis, right knee (04/08/23) Pain in right knee (04/08/23) Other intervertebral disc displacement, lumbosacral region (04/08/23) Difficulty in walking, not elsewhere classified (04/08/23) Physical Therapy Treatment Note PT-OP-A Visit Information Start: 04/01/23 08:10 Freq: Status: Active Protocol: Document 04/08/23 08:15 [facility] (Rec: 04/08/23 09:01 [facility] [id number]) Out-Patient Physical Therapy Visit Information Visit Information Visit Type Treatment Note Visit Start Time 08:15 Visit Stop Time 08:55 Total Visit Minutes 55 Visit Number 3 Evaluation Information Evaluation Date 04/01/23 PT-OP-B Current Condition Start: 04/01/23 08:10 Freq: Status: Active Protocol: Document 04/08/23 08:15 [facility] (Rec: 04/08/23 09:01 [facility] [id number]) Current Condition History of Current Condition Onset Date January 30 Current Complaints right knee pain, LBP History of Current Condition Works at a [employer], was on a ladder working on trailer and fell twisting his knee and hitting his knee on boat stand . Also injured his back when he landed on one of the boat stands during a fall. Reports his knee was very swollen. x-rays June 2022 showed arthrits in right knee. Had injection in right knee 02/09/23. Has used ice and heat, rubs his knee. Is off work at this time. Pain in back increases with lifting and bending over. Decreases a little with use of ice and rubbing. Walks for exercise but pain increases with walking. Also reports stage 4 prostate cancer; has Lupron injections every 2 months and taking Expandia medication orally. Sees corsetier and is taking cardiac medications . Uncertain extent of cancer spread. REports right knee is now prone to twisting. Prior Treatments and Tests injection right knee Treatment Goals Patient/Caregiver Goals decrease pain, improve activity tolerance. PT-OP-C Subjective Start: 04/01/23 08:10 Freq: Status: Active Protocol: Document 04/08/23 08:15 [facility] (Rec: 04/08/23 09:01 [facility] [id number]) OP-PT Subjective Patient Comments Patient Comments Goes to bed early due to pain by the end of the day PT-OP-F Manual Assessment Start: 04/01/23 08:10 Freq: Status: Active Protocol: Document 04/01/23 08:12 [facility] (Rec: 04/05/23 08:57 [facility] [id number]) Manual Assessments Soft Tissue Assessment Soft Tissue Mobility Assessment decrease soft tissue mobility lumbar paraspinals with tenderness to palpation PT-OP-G Mobility & Gait Start: 04/01/23 08:10 Freq: Status: Active Protocol: Document 04/01/23 08:12 [facility] (Rec: 04/05/23 08:57 [facility] [id number]) OP Gait Assessment Gait Gait Assistance Required: Independent Assistive Devices Assistive Device None Gait Deviations General Gait Pattern Antalgic,Flexed Trunk,Lateral Trunk Lean Factors Limiting Gait Function Factors Limiting Gait Function Decreased Activity Tolerance, Pain PT-OP-H Neuro Start: 04/01/23 08:10 Freq: Status: Active Protocol: Document 04/01/23 08:12 [facility] (Rec: 04/01/23 08:57 [facility] [id number]) Sensation Evaluation Gross Sensation Gross Sensation Right LE Impaired Sensation Description Tingling PT-OP-J Posture/Palpation/Skin Start: 04/01/23 08:10 Freq: Status: Active Protocol: Document 04/01/23 08:12 [facility] (Rec: 04/01/23 08:57 [facility] [id number]) Posture Evaluation Position Standing Head/C-Spine Posture C-Spine Flattened T-Spine Posture Increased Kyphosis L-Spine Posture Decreased Lordosis Knee Posture (R) Genu Varus Palpation Assessment Location lumbar spine Palpation Location L3-L5 Palpation Findings Muscle Guarding,Tenderness right knee Palpation Location posterior Palpation Findings Edema,Tenderness Skin Assessment Edema Assessment right knee Edema Appearance Taut Subjective Edema Description Pain PT-OP-K Range of Motion Start: 04/01/23 08:10 Freq: Status: Active Protocol: Document 04/01/23 08:12 [facility] (Rec: 04/01/23 08:57 [facility] [id number]) Lumbar Spine Range of Motion Lumbar Spine Active Testing Position Standing Flexion 25 Extension 0 Rotation Left 15 Rotation Right 10 Lateral Flexion Left 25 Lateral Flexion Right 20 ROM Limitations Pain Hip Goniometric Range of Motion Hip Right Flexion w/Knee Flexed 90 Straight Leg Raise 30 Extension 0 Abduction 20 Internal Rotation 0 External Rotation 15 left Hip ROM WFL No Flexion w/Knee Flexed 85 Straight Leg Raise 25 Extension 0 Abduction 25 Internal Rotation 10 External Rotation 35 Hip ROM Limitations Hip ROM Limitations Pain Knee Goniometric Range of Motion Knee Right Knee ROM WFL No Flexion Active (degrees) 95 Extension Active (degrees) 22 Left Knee ROM WFL Yes Knee ROM Limitations Knee ROM Limitations Pain,Swelling Ankle and Foot Goniometric Range of Motion Ankle and Foot romero Ankle/Foot ROM WFL Yes PT-OP-L Special Tests Start: 04/01/23 08:10 Freq: Status: Active Protocol: Document 04/01/23 08:12 [facility] (Rec: 04/05/23 08:55 [facility] [id number]) Special Tests Knee Special Tests Apley's Compression Test Results + Valgus- 0 Degrees Test Results - Varus- 0 Degrees Test Results +R Elva Test Test Results +R Anterior Draw Test Results - PT-OP-M Strength Start: 04/01/23 08:10 Freq: Status: Active Protocol: Document 04/01/23 08:12 [facility] (Rec: 04/05/23 08:55 [facility] [id number]) Hip Strength Hip Manual Muscle Testing Right Flexion (L2) 3- Fair- Extension (S1) 3- Fair- Abduction 3- Fair- Adduction 3 Fair External Rotation 3 Fair Internal Rotation 3+ Fair+ Left Flexion (L2) 4 Good Extension (S1) 4 Good Abduction 4 Good Adduction 4 Good External Rotation 4- Good- Internal Rotation 4 Good Knee Strength Knee Manual Muscle Testing Right Flexion (S2) 4 Good Extension (L3) 4- Good- Comments pain with resistance Left Flexion (S2) 5 Normal Extension (L3) 5 Normal Ankle/Foot Strength Ankle and Foot Manual Muscle Testing Right Dorsiflexion (L4) 4 Good Plantarflexion (S1) 4 Good Left Dorsiflexion (L4) 5 Normal Plantarflexion (S1) 5 Normal Toe Strength Toe Manual Muscle Testing Right Great Toe Extension 4 Good Left Great Toe Extension 5 Normal PT-OP-Q Treatments Start: 04/01/23 08:10 Freq: Status: Active Protocol: Document 04/08/23 08:15 [facility] (Rec: 04/08/23 09:01 [facility] [id number]) Cardio Equipment Recumbent Stepper (Sci-Fit) Duration (Minutes) 7 Resistance 1 Seat Position 12 Gym Equipment Cable Column (Body Solid) hamstring curl Details romero, unil Resistance 40, 20 Reps/Time 10x2 Pallof Press Resistance L2 TB Reps/Time 10x Shuttle Recovery Unilateral Squats Resistance 37 Shuttle Recovery Platform Stable Reps/Time 10x2 Bilateral Squats Details cues for keeping knees apart Resistance 62 Shuttle Recovery Platform Stable Reps/Time 10x2 Therapeutic Exercises Supine Exercises SLR Reps/Minutes 10x Comments cues for core activation TrA Reps/Minutes 10x glut sets Reps/Minutes 10x Comments progress to bridge march Reps/Minutes 10x Sidelying Exercises hip abd Reps/Minutes 10x2 Standing Exercises Paleoff press Equipment Used green TB Reps/Minutes 10x ea direction shoulder extension Equipment Used green TB Reps/Minutes 10x2 HC stretch Equipment Used Niraj Reps/Minutes 2x30 Self-Care/Home Management Treatment Education Patient Education Home Exercise Program,Posture PT-OP-R Modalities Start: 04/01/23 08:10 Freq: Status: Active Protocol: Document 04/08/23 08:15 [facility] (Rec: 04/09/23 09:55 [facility] [id number]) Electric Stimulation Electric Stimulation RIGHT KNEE Duration (Minutes) 10 Intensity 47 Target/Sweep Sweep Patient Position Hooklying Combined With Heat/Cold Cold Pack Comments consider IFES to l/s next session Hot Pack/Cold Pack Treatment Cold Pack Location lumbar spine Patient Position Hooklying Treatment Duration (minutes) 10 Patient Tolerance Good PT-OP-T Assessment and Plan Start: 04/01/23 08:10 Freq: Status: Active Protocol: Document 04/08/23 08:15 [facility] (Rec: 04/08/23 09:01 [facility] [id number]) Physical Therapy Assessment Impairments Impairments Activity Tolerance,Gait,Pain, Posture Goals radicular symptoms right LE Skilled Nursing Goal (LTG) eliminate right LE radicular symptoms LTG Duration 07/01/23 postural dysfunction Impairment severe lateral shift and forward bent posture Human Services Professional Goal (LTG) Patient to demonstrate minimal postural dysfunction sitting and standing LTG Duration 07/01/23 antalgic gait Short Term Goal (STG) Patient able to ambulate with minimal to no limp with use of appropriate assistive device on level surfaces STG Duration 05/21/23 Skilled Nursing Goal (LTG) Patient will be able to ambulate without assistive device and with minimal to no limp on all surfaces including stairs LTG Duration 07/01/23 Oswestry disability index score Impairment 50% Short Term Goal (STG) Improved Oswestry score to no greater than 35% as measure of improved spinal function and activity tolerance STG Duration 05/21/23 Human Services Professional Goal (LTG) Improve Oswestry score to no greater than 20% as measure of improved spinal function and activity tolerance. LTG Duration 07/01/23 Lower extremity functional scale Impairment 35% Short Term Goal (STG) Improve LEFS score to at least 50% as measure of improved right knee function and activity tolerance STG Duration 05/21/23 Human Services Professional Goal (LTG) Improve LEFS to at least 75% as measure of improved right knee function and activity tolerance LTG Duration 07/01/23 Assessment Summary Assessment Improved exercise tolerance, difficulty with core activation, moderate cues required. REports decreased pain after PT Physical Therapy Plan Frequency and Duration Frequency of Treatment 2x/Week Duration of treatment (weeks) 12 Plan of Care Start Date 04/01/23 Plan of Care End Date 07/01/23 Therapeutic Interventions Therapeutic Interventions Home Exercise Program,Manual Therapy,Neuromuscular Re- education,Patient/Caregiver Education,Self-Care/Home Management,Soft Tissue Mobilization,Taping, Therapeutic Activities, Therapeutic Exercises Modalities Cold Pack/Ice Massage,Electric Stimulation,Hot Packs, Infrared Therapy,Traction- Mechanical Next Visit Focus/Plan Next Note Type Treatment Note Next Visit Plan Continue gentle ther ex progression. Add shallow squats with mirror for visual feedback, core progression, [place] Home traction unit as indicated.
--- NOTE | 2023-04-21 13:44 | PT.OTN ---
Current Diagnoses Unilateral primary osteoarthritis, right knee (04/21/23) Pain in right knee (04/21/23) Other intervertebral disc displacement, lumbosacral region (04/21/23) Difficulty in walking, not elsewhere classified (04/21/23) Physical Therapy Treatment Note PT-OP-A Visit Information Start: 04/01/23 08:10 Freq: Status: Active Protocol: Document 04/21/23 08:09 [facility] (Rec: 04/21/23 09:01 [facility] [id number]) Out-Patient Physical Therapy Visit Information Visit Information Visit Type Treatment Note Visit Start Time 08:15 Visit Stop Time 08:55 Total Visit Minutes 50 Visit Number 4 Evaluation Information Evaluation Date 04/01/23 PT-OP-B Current Condition Start: 04/01/23 08:10 Freq: Status: Active Protocol: Document 04/21/23 08:09 [facility] (Rec: 04/21/23 09:01 [facility] [id number]) Current Condition History of Current Condition Onset Date January 30 Current Complaints right knee pain, LBP History of Current Condition Works at a [email or web address], was on a ladder working on trailer and fell twisting his knee and hitting his knee on boat stand . Also injured his back when he landed on one of the boat stands during a fall. Reports his knee was very swollen. x-rays June 2022 showed arthrits in right knee. Had injection in right knee 02/09/23. Has used ice and heat, rubs his knee. Is off work at this time. Pain in back increases with lifting and bending over. Decreases a little with use of ice and rubbing. Walks for exercise but pain increases with walking. Also reports stage 4 prostate cancer; has Lupron injections every 2 months and taking Expandia medication orally. Sees tablet technician and is taking cardiac medications . Uncertain extent of cancer spread. REports right knee is now prone to twisting. Prior Treatments and Tests injection right knee Treatment Goals Patient/Caregiver Goals decrease pain, improve activity tolerance. PT-OP-C Subjective Start: 04/01/23 08:10 Freq: Status: Active Protocol: Document 04/21/23 08:09 [facility] (Rec: 04/21/23 09:01 [facility] [id number]) OP-PT Subjective Patient Comments Patient Comments Thinks swelling in his knee is better, overall improved. Compliant to HEP. PT-OP-F Manual Assessment Start: 04/01/23 08:10 Freq: Status: Active Protocol: Document 04/01/23 08:12 [facility] (Rec: 04/05/23 08:57 [facility] [id number]) Manual Assessments Soft Tissue Assessment Soft Tissue Mobility Assessment decrease soft tissue mobility lumbar paraspinals with tenderness to palpation PT-OP-G Mobility & Gait Start: 04/01/23 08:10 Freq: Status: Active Protocol: Document 04/01/23 08:12 [facility] (Rec: 04/05/23 08:57 [facility] [id number]) OP Gait Assessment Gait Gait Assistance Required: Independent Assistive Devices Assistive Device None Gait Deviations General Gait Pattern Antalgic,Flexed Trunk,Lateral Trunk Lean Factors Limiting Gait Function Factors Limiting Gait Function Decreased Activity Tolerance, Pain PT-OP-H Neuro Start: 04/01/23 08:10 Freq: Status: Active Protocol: Document 04/01/23 08:12 [facility] (Rec: 04/01/23 08:57 [facility] [id number]) Sensation Evaluation Gross Sensation Gross Sensation Right LE Impaired Sensation Description Tingling PT-OP-J Posture/Palpation/Skin Start: 04/01/23 08:10 Freq: Status: Active Protocol: Document 04/01/23 08:12 [facility] (Rec: 04/01/23 08:57 [facility] [id number]) Posture Evaluation Position Standing Head/C-Spine Posture C-Spine Flattened T-Spine Posture Increased Kyphosis L-Spine Posture Decreased Lordosis Knee Posture (R) Genu Varus Palpation Assessment Location lumbar spine Palpation Location L3-L5 Palpation Findings Muscle Guarding,Tenderness right knee Palpation Location posterior Palpation Findings Edema,Tenderness Skin Assessment Edema Assessment right knee Edema Appearance Taut Subjective Edema Description Pain PT-OP-K Range of Motion Start: 04/01/23 08:10 Freq: Status: Active Protocol: Document 04/01/23 08:12 [facility] (Rec: 04/01/23 08:57 [facility] [id number]) Lumbar Spine Range of Motion Lumbar Spine Active Testing Position Standing Flexion 25 Extension 0 Rotation Left 15 Rotation Right 10 Lateral Flexion Left 25 Lateral Flexion Right 20 ROM Limitations Pain Hip Goniometric Range of Motion Hip Right Flexion w/Knee Flexed 90 Straight Leg Raise 30 Extension 0 Abduction 20 Internal Rotation 0 External Rotation 15 left Hip ROM WFL No Flexion w/Knee Flexed 85 Straight Leg Raise 25 Extension 0 Abduction 25 Internal Rotation 10 External Rotation 35 Hip ROM Limitations Hip ROM Limitations Pain Knee Goniometric Range of Motion Knee Right Knee ROM WFL No Flexion Active (degrees) 95 Extension Active (degrees) 22 Left Knee ROM WFL Yes Knee ROM Limitations Knee ROM Limitations Pain,Swelling Ankle and Foot Goniometric Range of Motion Ankle and Foot romero Ankle/Foot ROM WFL Yes PT-OP-L Special Tests Start: 04/01/23 08:10 Freq: Status: Active Protocol: Document 04/01/23 08:12 [facility] (Rec: 04/05/23 08:55 [facility] [id number]) Special Tests Knee Special Tests Apley's Compression Test Results + Valgus- 0 Degrees Test Results - Varus- 0 Degrees Test Results +R Elva Test Test Results +R Anterior Draw Test Results - PT-OP-M Strength Start: 04/01/23 08:10 Freq: Status: Active Protocol: Document 04/01/23 08:12 [facility] (Rec: 04/05/23 08:55 [facility] [id number]) Hip Strength Hip Manual Muscle Testing Right Flexion (L2) 3- Fair- Extension (S1) 3- Fair- Abduction 3- Fair- Adduction 3 Fair External Rotation 3 Fair Internal Rotation 3+ Fair+ Left Flexion (L2) 4 Good Extension (S1) 4 Good Abduction 4 Good Adduction 4 Good External Rotation 4- Good- Internal Rotation 4 Good Knee Strength Knee Manual Muscle Testing Right Flexion (S2) 4 Good Extension (L3) 4- Good- Comments pain with resistance Left Flexion (S2) 5 Normal Extension (L3) 5 Normal Ankle/Foot Strength Ankle and Foot Manual Muscle Testing Right Dorsiflexion (L4) 4 Good Plantarflexion (S1) 4 Good Left Dorsiflexion (L4) 5 Normal Plantarflexion (S1) 5 Normal Toe Strength Toe Manual Muscle Testing Right Great Toe Extension 4 Good Left Great Toe Extension 5 Normal PT-OP-Q Treatments Start: 04/01/23 08:10 Freq: Status: Active Protocol: Document 04/21/23 08:09 [facility] (Rec: 04/21/23 09:01 [facility] [id number]) Cardio Equipment Recumbent Stepper (Sci-Fit) Duration (Minutes) 8 Resistance 2 Seat Position 12 Other 55-58 rpm Gym Equipment Cable Column (Body Solid) hamstring curl Details romero, unil Resistance 40, 20 Reps/Time 10x2 Pallof Press Resistance L3 TB Reps/Time 10x Shuttle Recovery Unilateral Squats Resistance 37 Shuttle Recovery Platform Stable Reps/Time 10x2 Bilateral Squats Details cues for keeping knees apart Resistance 62 Shuttle Recovery Platform Stable Reps/Time 10x2 Therapeutic Exercises Supine Exercises bicycle Reps/Minutes 10x Comments cues for core Elpidio stretch Reps/Minutes 2x30 romero bridge Reps/Minutes 10x SLR Reps/Minutes 10x Comments cues for core activation PT-OP-R Modalities Start: 04/01/23 08:10 Freq: Status: Active Protocol: Document 04/21/23 08:09 [facility] (Rec: 04/21/23 09:01 [facility] [id number]) Electric Stimulation Electric Stimulation RIGHT KNEE Duration (Minutes) 10 Intensity 30 Target/Sweep Sweep Patient Position Hooklying Combined With Heat/Cold Cold Pack Hot Pack/Cold Pack Treatment Cold Pack Location lumbar spine Patient Position Hooklying Treatment Duration (minutes) 10 Patient Tolerance Good PT-OP-T Assessment and Plan Start: 04/01/23 08:10 Freq: Status: Active Protocol: Document 04/21/23 08:09 [facility] (Rec: 04/21/23 09:01 [facility] [id number]) Physical Therapy Assessment Impairments Impairments Activity Tolerance,Gait,Pain, Posture Goals radicular symptoms right LE Bobbin Cleaner Goal (LTG) eliminate right LE radicular symptoms LTG Duration 07/01/23 postural dysfunction Impairment severe lateral shift and forward bent posture Bobbin Cleaner Goal (LTG) Patient to demonstrate minimal postural dysfunction sitting and standing LTG Duration 07/01/23 antalgic gait Short Term Goal (STG) Patient able to ambulate with minimal to no limp with use of appropriate assistive device on level surfaces STG Duration 05/21/23 Bobbin Cleaner Goal (LTG) Patient will be able to ambulate without assistive device and with minimal to no limp on all surfaces including stairs LTG Duration 07/01/23 Oswestry disability index score Impairment 50% Short Term Goal (STG) Improved Oswestry score to no greater than 35% as measure of improved spinal function and activity tolerance STG Duration 05/21/23 Half-Way Goal (LTG) Improve Oswestry score to no greater than 20% as measure of improved spinal function and activity tolerance. LTG Duration 07/01/23 Lower extremity functional scale Impairment 35% Short Term Goal (STG) Improve LEFS score to at least 50% as measure of improved right knee function and activity tolerance STG Duration 05/21/23 Bobbin Cleaner Goal (LTG) Improve LEFS to at least 75% as measure of improved right knee function and activity tolerance LTG Duration 07/01/23 Progress Towards Goals Progress Towards Goals Progressing Toward Goals Assessment Summary Assessment Decreased right knee swelling. Compliant to HEP. Progressed to L3 TB with paleoff press. Improving patient awareness of LE alignment. Physical Therapy Plan Frequency and Duration Frequency of Treatment 2x/Week Duration of treatment (weeks) 12 Plan of Care Start Date 04/01/23 Plan of Care End Date 07/01/23 Therapeutic Interventions Therapeutic Interventions Home Exercise Program,Manual Therapy,Neuromuscular Re- education,Patient/Caregiver Education,Self-Care/Home Management,Soft Tissue Mobilization,Taping, Therapeutic Activities, Therapeutic Exercises Modalities Cold Pack/Ice Massage,Electric Stimulation,Hot Packs, Infrared Therapy,Traction- Mechanical Next Visit Focus/Plan Next Note Type Treatment Note Next Visit Plan Continue gentle ther ex progression. Add shallow squats with mirror for visual feedback, core progression, [place] Home traction unit as indicated.
--- NOTE | 2023-04-23 09:08 | PT.OTN ---
Current Diagnoses Unilateral primary osteoarthritis, right knee (04/23/23) Pain in right knee (04/23/23) Other intervertebral disc displacement, lumbosacral region (04/23/23) Difficulty in walking, not elsewhere classified (04/23/23) Physical Therapy Treatment Note PT-OP-A Visit Information Start: 04/01/23 08:10 Freq: Status: Active Protocol: Document 04/23/23 08:16 [facility] (Rec: 04/23/23 09:17 [facility] [id number]) Out-Patient Physical Therapy Visit Information Visit Information Visit Type Treatment Note Visit Start Time 08:16 Visit Stop Time 09:08 Total Visit Minutes 52 Visit Number 5 Number of RN TELEPHONIC Visits 1 Evaluation Information Evaluation Date 04/01/23 PT-OP-B Current Condition Start: 04/01/23 08:10 Freq: Status: Active Protocol: Document 04/21/23 08:09 [facility] (Rec: 04/21/23 09:01 [facility] [id number]) Current Condition History of Current Condition Onset Date January 30 Current Complaints right knee pain, LBP History of Current Condition Works at a [employer], was on a ladder working on trailer and fell twisting his knee and hitting his knee on boat stand . Also injured his back when he landed on one of the boat stands during a fall. Reports his knee was very swollen. x-rays June 2022 showed arthrits in right knee. Had injection in right knee 02/09/23. Has used ice and heat, rubs his knee. Is off work at this time. Pain in back increases with lifting and bending over. Decreases a little with use of ice and rubbing. Walks for exercise but pain increases with walking. Also reports stage 4 prostate cancer; has Lupron injections every 2 months and taking Expandia medication orally. Sees printed circuit boards plasma etcher and is taking cardiac medications . Uncertain extent of cancer spread. REports right knee is now prone to twisting. Prior Treatments and Tests injection right knee Treatment Goals Patient/Caregiver Goals decrease pain, improve activity tolerance. PT-OP-C Subjective Start: 04/01/23 08:10 Freq: Status: Active Protocol: Document 04/23/23 08:16 [facility] (Rec: 04/23/23 09:17 [facility] [id number]) OP-PT Subjective Patient Comments Patient Comments Pt reports his lateral R ribcage sore from previous fall and lateral R knee but compliant with HEP at home. He states has alot boat items to walk over at work so is mindful of where stepping at work: boat yard scraps/masts on the ground/uneven gravel. PT-OP-F Manual Assessment Start: 04/01/23 08:10 Freq: Status: Active Protocol: Document 04/01/23 08:12 [facility] (Rec: 04/05/23 08:57 [facility] [id number]) Manual Assessments Soft Tissue Assessment Soft Tissue Mobility Assessment decrease soft tissue mobility lumbar paraspinals with tenderness to palpation PT-OP-G Mobility & Gait Start: 04/01/23 08:10 Freq: Status: Active Protocol: Document 04/01/23 08:12 [facility] (Rec: 04/05/23 08:57 [facility] [id number]) OP Gait Assessment Gait Gait Assistance Required: Independent Assistive Devices Assistive Device None Gait Deviations General Gait Pattern Antalgic,Flexed Trunk,Lateral Trunk Lean Factors Limiting Gait Function Factors Limiting Gait Function Decreased Activity Tolerance, Pain PT-OP-H Neuro Start: 04/01/23 08:10 Freq: Status: Active Protocol: Document 04/01/23 08:12 [facility] (Rec: 04/01/23 08:57 [facility] [id number]) Sensation Evaluation Gross Sensation Gross Sensation Right LE Impaired Sensation Description Tingling PT-OP-J Posture/Palpation/Skin Start: 04/01/23 08:10 Freq: Status: Active Protocol: Document 04/01/23 08:12 [facility] (Rec: 04/01/23 08:57 [facility] [id number]) Posture Evaluation Position Standing Head/C-Spine Posture C-Spine Flattened T-Spine Posture Increased Kyphosis L-Spine Posture Decreased Lordosis Knee Posture (R) Genu Varus Palpation Assessment Location lumbar spine Palpation Location L3-L5 Palpation Findings Muscle Guarding,Tenderness right knee Palpation Location posterior Palpation Findings Edema,Tenderness Skin Assessment Edema Assessment right knee Edema Appearance Taut Subjective Edema Description Pain PT-OP-K Range of Motion Start: 04/01/23 08:10 Freq: Status: Active Protocol: Document 04/01/23 08:12 [facility] (Rec: 04/01/23 08:57 [facility] [id number]) Lumbar Spine Range of Motion Lumbar Spine Active Testing Position Standing Flexion 25 Extension 0 Rotation Left 15 Rotation Right 10 Lateral Flexion Left 25 Lateral Flexion Right 20 ROM Limitations Pain Hip Goniometric Range of Motion Hip Right Flexion w/Knee Flexed 90 Straight Leg Raise 30 Extension 0 Abduction 20 Internal Rotation 0 External Rotation 15 left Hip ROM WFL No Flexion w/Knee Flexed 85 Straight Leg Raise 25 Extension 0 Abduction 25 Internal Rotation 10 External Rotation 35 Hip ROM Limitations Hip ROM Limitations Pain Knee Goniometric Range of Motion Knee Right Knee ROM WFL No Flexion Active (degrees) 95 Extension Active (degrees) 22 Left Knee ROM WFL Yes Knee ROM Limitations Knee ROM Limitations Pain,Swelling Ankle and Foot Goniometric Range of Motion Ankle and Foot romero Ankle/Foot ROM WFL Yes PT-OP-L Special Tests Start: 04/01/23 08:10 Freq: Status: Active Protocol: Document 04/01/23 08:12 [facility] (Rec: 04/05/23 08:55 [facility] [id number]) Special Tests Knee Special Tests Apley's Compression Test Results + Valgus- 0 Degrees Test Results - Varus- 0 Degrees Test Results +R Elva Test Test Results +R Anterior Draw Test Results - PT-OP-M Strength Start: 04/01/23 08:10 Freq: Status: Active Protocol: Document 04/01/23 08:12 [facility] (Rec: 04/05/23 08:55 [facility] [id number]) Hip Strength Hip Manual Muscle Testing Right Flexion (L2) 3- Fair- Extension (S1) 3- Fair- Abduction 3- Fair- Adduction 3 Fair External Rotation 3 Fair Internal Rotation 3+ Fair+ Left Flexion (L2) 4 Good Extension (S1) 4 Good Abduction 4 Good Adduction 4 Good External Rotation 4- Good- Internal Rotation 4 Good Knee Strength Knee Manual Muscle Testing Right Flexion (S2) 4 Good Extension (L3) 4- Good- Comments pain with resistance Left Flexion (S2) 5 Normal Extension (L3) 5 Normal Ankle/Foot Strength Ankle and Foot Manual Muscle Testing Right Dorsiflexion (L4) 4 Good Plantarflexion (S1) 4 Good Left Dorsiflexion (L4) 5 Normal Plantarflexion (S1) 5 Normal Toe Strength Toe Manual Muscle Testing Right Great Toe Extension 4 Good Left Great Toe Extension 5 Normal PT-OP-Q Treatments Start: 04/01/23 08:10 Freq: Status: Active Protocol: Document 04/23/23 08:16 [facility] (Rec: 04/23/23 09:17 [facility] [id number]) Cardio Equipment Recumbent Stepper (Sci-Fit) Duration (Minutes) 10 Resistance 2>3 Seat Position 12 Other BUE/BLE: 51 RPMs, 1.09 miles Gym Equipment Cable Column (Body Solid) hamstring curl Details romero, unil Resistance 40, 20 Reps/Time 20 reps, 10 reps x2 Shuttle Recovery Unilateral Squats Details tactile cues for knee alignment lateral/neutral Resistance 37 (dark navy band) Shuttle Recovery Platform Stable Reps/Time 15x2 Bilateral Squats Details cues for keeping knees apart / c mid foot Resistance 62 (dark navy bands) Shuttle Recovery Platform Stable Reps/Time [id number] heel press for mid quad/glut fac Therapeutic Exercises Supine Exercises bicycle Supine Exercise Name in PT for proper form Reps/Minutes 10x Comments cues for core, maintain table top knee/hip flexion Elpidio stretch Side bilateral Reps/Minutes 2x30 each Comments states gets off end of bed, no room on side bridge Reps/Minutes 10x Comments cues for feet apart/neutral ankle IV SLR Side bilateral Reps/Minutes 10x Comments cues for core activation, TKE Mod cues maintain Sidelying Exercises hip abd Side bilateral Reps/Minutes 12x2 Comments tactile cues for stacked alignment, ankle DF/EV neutral , TKE- improved hip Gait Training Gait Activity gait Device Used 0 Surface floor Distance/Duration distances across gym between machines, enter vs leave Treatment Focus TKE, elongated posture, stability, heel toe Comments Cues for upright posturing and TKE stance LE during forward locomotion, tends to walk with slight knee flexion and flexed posture. Improved mechanics post ther ex. PT-OP-R Modalities Start: 04/01/23 08:10 Freq: Status: Active Protocol: Document 04/23/23 08:16 [facility] (Rec: 04/23/23 09:17 [facility] [id number]) Electric Stimulation Electric Stimulation RIGHT KNEE Body Location Anterior/medial/lateral R knee Duration (Minutes) 10 Intensity 43 Target/Sweep Sweep Patient Position Hooklying Combined With Heat/Cold Cold Pack Hot Pack/Cold Pack Treatment Cold Pack Location lumbar spine Patient Position Hooklying Treatment Duration (minutes) 10 Patient Tolerance Good Comments CP + towel laying on PT-OP-T Assessment and Plan Start: 04/01/23 08:10 Freq: Status: Active Protocol: Document 04/23/23 08:16 [facility] (Rec: 04/23/23 09:17 [facility] [id number]) Physical Therapy Assessment Goals radicular symptoms right LE Mcfp Goal (LTG) eliminate right LE radicular symptoms LTG Duration 07/01/23 postural dysfunction Impairment severe lateral shift and forward bent posture Mcfp Goal (LTG) Patient to demonstrate minimal postural dysfunction sitting and standing LTG Duration 07/01/23 antalgic gait Short Term Goal (STG) Patient able to ambulate with minimal to no limp with use of appropriate assistive device on level surfaces STG Duration 05/21/23 Freezer Worker Goal (LTG) Patient will be able to ambulate without assistive device and with minimal to no limp on all surfaces including stairs LTG Duration 07/01/23 Oswestry disability index score Impairment 50% Short Term Goal (STG) Improved Oswestry score to no greater than 35% as measure of improved spinal function and activity tolerance STG Duration 05/21/23 Mcfp Goal (LTG) Improve Oswestry score to no greater than 20% as measure of improved spinal function and activity tolerance. LTG Duration 07/01/23 Lower extremity functional scale Impairment 35% Short Term Goal (STG) Improve LEFS score to at least 50% as measure of improved right knee function and activity tolerance STG Duration 05/21/23 Freezer Worker Goal (LTG) Improve LEFS to at least 75% as measure of improved right knee function and activity tolerance LTG Duration 07/01/23 Assessment Summary Assessment Pt tolerated increased reps with resisted LE ther ex, max cues for R>L knee more lateral neutral alignment with mid foot during shuttle recovery and mid quad/glut fac post cue for with improved less distal recruitment into R knee. Pt tires quickly during core sequencial march supine, cues for maintaining TA with slower pacing table top, lift/lower slower pacing. Pt slight improvement in BLE TKE, posturing stability leaving. Physical Therapy Plan Frequency and Duration Frequency of Treatment 2x/Week Duration of treatment (weeks) 12 Plan of Care Start Date 04/01/23 Plan of Care End Date 07/01/23 Therapeutic Interventions Therapeutic Interventions Home Exercise Program,Manual Therapy,Neuromuscular Re- education,Patient/Caregiver Education,Self-Care/Home Management,Soft Tissue Mobilization,Taping, Therapeutic Activities, Therapeutic Exercises Modalities Cold Pack/Ice Massage,Electric Stimulation,Hot Packs, Infrared Therapy,Traction- Mechanical Next Visit Focus/Plan Next Note Type Treatment Note Next Visit Plan Continue gentle ther ex progression. Add shallow squats with mirror for visual feedback, core progression, [place] Home traction unit as indicated.
--- NOTE | 2023-04-28 09:51 | PT.OTN ---
Current Diagnoses Unilateral primary osteoarthritis, right knee (04/28/23) Pain in right knee (04/28/23) Other intervertebral disc displacement, lumbosacral region (04/28/23) Difficulty in walking, not elsewhere classified (04/28/23) Physical Therapy Treatment Note PT-OP-A Visit Information Start: 04/01/23 08:10 Freq: Status: Active Protocol: Document 04/28/23 09:07 [facility]AK (Rec: 04/28/23 09:51 [facility] [id number]) Out-Patient Physical Therapy Visit Information Visit Information Visit Type Treatment Note Visit Start Time 09:05 Visit Stop Time 10:00 Total Visit Minutes 55 Visit Number 6 Number of PHARMACEUTICAL PHYSICIAN Visits 0 Evaluation Information Evaluation Date 04/01/23 PT-OP-B Current Condition Start: 04/01/23 08:10 Freq: Status: Active Protocol: Document 04/28/23 09:07 SAK (Rec: 04/28/23 09:51 [facility] [id number]) Current Condition History of Current Condition Onset Date January 30 Current Complaints right knee pain, LBP History of Current Condition Works at a [employer], was on a ladder working on trailer and fell twisting his knee and hitting his knee on boat stand . Also injured his back when he landed on one of the boat stands during a fall. Reports his knee was very swollen. x-rays June 2022 showed arthrits in right knee. Had injection in right knee 02/09/23. Has used ice and heat, rubs his knee. Is off work at this time. Pain in back increases with lifting and bending over. Decreases a little with use of ice and rubbing. Walks for exercise but pain increases with walking. Also reports stage 4 prostate cancer; has Lupron injections every 2 months and taking Expandia medication orally. 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 Uncertain extent of cancer spread. REports right knee is now prone to twisting. Prior Treatments and Tests injection right knee Treatment Goals Patient/Caregiver Goals decrease pain, improve activity tolerance. PT-OP-C Subjective Start: 04/01/23 08:10 Freq: Status: Active Protocol: Document 04/28/23 09:07 SAK (Rec: 04/28/23 09:51 [facility] [id number]) OP-PT Subjective Patient Comments Patient Comments Decreased swelling in right knee. Still some soreness in ribcage and knee but improved. PT-OP-F Manual Assessment Start: 04/01/23 08:10 Freq: Status: Active Protocol: Document 04/01/23 08:12 [facility]AK (Rec: 04/05/23 08:57 [facility] [id number]) Manual Assessments Soft Tissue Assessment Soft Tissue Mobility Assessment decrease soft tissue mobility lumbar paraspinals with tenderness to palpation PT-OP-G Mobility & Gait Start: 04/01/23 08:10 Freq: Status: Active Protocol: Document 04/01/23 08:12 SAK (Rec: 04/05/23 08:57 [facility] [id number]) OP Gait Assessment Gait Gait Assistance Required: Independent Assistive Devices Assistive Device None Gait Deviations General Gait Pattern Antalgic,Flexed Trunk,Lateral Trunk Lean Factors Limiting Gait Function Factors Limiting Gait Function Decreased Activity Tolerance, Pain PT-OP-H Neuro Start: 04/01/23 08:10 Freq: Status: Active Protocol: Document 04/01/23 08:12 [facility]AK (Rec: 04/01/23 08:57 [facility] [id number]) Sensation Evaluation Gross Sensation Gross Sensation Right LE Impaired Sensation Description Tingling PT-OP-J Posture/Palpation/Skin Start: 04/01/23 08:10 Freq: Status: Active Protocol: Document 04/01/23 08:12 [facility]AK (Rec: 04/01/23 08:57 [facility] [id number]) Posture Evaluation Position Standing Head/C-Spine Posture C-Spine Flattened T-Spine Posture Increased Kyphosis L-Spine Posture Decreased Lordosis Knee Posture (R) Genu Varus Palpation Assessment Location lumbar spine Palpation Location L3-L5 Palpation Findings Muscle Guarding,Tenderness right knee Palpation Location posterior Palpation Findings Edema,Tenderness Skin Assessment Edema Assessment right knee Edema Appearance Taut Subjective Edema Description Pain PT-OP-K Range of Motion Start: 04/01/23 08:10 Freq: Status: Active Protocol: Document 04/01/23 08:12 [facility]AK (Rec: 04/01/23 08:57 [facility] [id number]) Lumbar Spine Range of Motion Lumbar Spine Active Testing Position Standing Flexion 25 Extension 0 Rotation Left 15 Rotation Right 10 Lateral Flexion Left 25 Lateral Flexion Right 20 ROM Limitations Pain Hip Goniometric Range of Motion Hip Right Flexion w/Knee Flexed 90 Straight Leg Raise 30 Extension 0 Abduction 20 Internal Rotation 0 External Rotation 15 left Hip ROM WFL No Flexion w/Knee Flexed 85 Straight Leg Raise 25 Extension 0 Abduction 25 Internal Rotation 10 External Rotation 35 Hip ROM Limitations Hip ROM Limitations Pain Knee Goniometric Range of Motion Knee Right Knee ROM WFL No Flexion Active (degrees) 95 Extension Active (degrees) 22 Left Knee ROM WFL Yes Knee ROM Limitations Knee ROM Limitations Pain,Swelling Ankle and Foot Goniometric Range of Motion Ankle and Foot romero Ankle/Foot ROM WFL Yes PT-OP-L Special Tests Start: 04/01/23 08:10 Freq: Status: Active Protocol: Document 04/01/23 08:12 [facility] (Rec: 04/05/23 08:55 [facility] [id number]) Special Tests Knee Special Tests Apley's Compression Test Results + Valgus- 0 Degrees Test Results - Varus- 0 Degrees Test Results +R Elva Test Test Results +R Anterior Draw Test Results - PT-OP-M Strength Start: 04/01/23 08:10 Freq: Status: Active Protocol: Document 04/01/23 08:12 [facility] (Rec: 04/05/23 08:55 [facility] [id number]) Hip Strength Hip Manual Muscle Testing Right Flexion (L2) 3- Fair- Extension (S1) 3- Fair- Abduction 3- Fair- Adduction 3 Fair External Rotation 3 Fair Internal Rotation 3+ Fair+ Left Flexion (L2) 4 Good Extension (S1) 4 Good Abduction 4 Good Adduction 4 Good External Rotation 4- Good- Internal Rotation 4 Good Knee Strength Knee Manual Muscle Testing Right Flexion (S2) 4 Good Extension (L3) 4- Good- Comments pain with resistance Left Flexion (S2) 5 Normal Extension (L3) 5 Normal Ankle/Foot Strength Ankle and Foot Manual Muscle Testing Right Dorsiflexion (L4) 4 Good Plantarflexion (S1) 4 Good Left Dorsiflexion (L4) 5 Normal Plantarflexion (S1) 5 Normal Toe Strength Toe Manual Muscle Testing Right Great Toe Extension 4 Good Left Great Toe Extension 5 Normal PT-OP-Q Treatments Start: 04/01/23 08:10 Freq: Status: Active Protocol: Document 04/28/23 09:07 [facility] (Rec: 04/28/23 09:51 [facility] [id number]) Cardio Equipment Recumbent Stepper (Sci-Fit) Duration (Minutes) 10 Resistance 2>3 Seat Position 12 Other BUE/BLE: 50-55 RPMs, 1.21 miles miles Gym Equipment Cable Column (Body Solid) hamstring curl Details romero, unil Resistance 40, 20 Reps/Time 20 reps, 10 reps x2 Pallof Press Resistance L3 TB Reps/Time 10x Shuttle Recovery Unilateral Squats Details tactile cues for knee alignment lateral/neutral Resistance 37 (dark navy band) Shuttle Recovery Platform Stable Reps/Time 15x2 Bilateral Squats Details cues for keeping knees apart / c mid foot Resistance 75 (2dark navy bands, 1 teal) Shuttle Recovery Platform Stable Reps/Time [id number] heel press for mid quad/glut fac Therapeutic Exercises Sitting Exercises HS stretch Reps/Minutes 30 x 2 Standing Exercises resisted walking Standing Exercise Name side, fwd,bck Equipment Used L1 TB Reps/Minutes 10ft ea HC stretch Equipment Used Niraj Reps/Minutes 2x30 Gait Training Gait Activity gait Device Used 0 Surface floor Distance/Duration distances across gym between machines, enter vs leave Treatment Focus TKE, elongated posture, stability, heel toe Comments Cues for upright posturing and TKE stance LE during forward locomotion, tends to walk with slight knee flexion and flexed posture. Improved mechanics post ther ex. PT-OP-R Modalities Start: 04/01/23 08:10 Freq: Status: Active Protocol: Document 04/28/23 09:07 [facility] (Rec: 04/28/23 09:51 [facility] [id number]) Electric Stimulation Electric Stimulation RIGHT KNEE Body Location Anterior/medial/lateral R knee Duration (Minutes) 10 Intensity 43 Target/Sweep Sweep Patient Position Hooklying Combined With Heat/Cold Cold Pack Hot Pack/Cold Pack Treatment Cold Pack Location lumbar spine Patient Position Hooklying Treatment Duration (minutes) 10 Patient Tolerance Good Comments CP + towel laying on PT-OP-T Assessment and Plan Start: 04/01/23 08:10 Freq: Status: Active Protocol: Document 04/28/23 09:07 [facility] (Rec: 04/28/23 09:51 [facility] [id number]) Physical Therapy Assessment Impairments Impairments Activity Tolerance,Gait,Pain, Posture Goals radicular symptoms right LE Group Insurance Special Agent Goal (LTG) eliminate right LE radicular symptoms LTG Duration 07/01/23 postural dysfunction Impairment severe lateral shift and forward bent posture Residential Goal (LTG) Patient to demonstrate minimal postural dysfunction sitting and standing LTG Duration 07/01/23 antalgic gait Short Term Goal (STG) Patient able to ambulate with minimal to no limp with use of appropriate assistive device on level surfaces STG Duration 05/21/23 Residential Goal (LTG) Patient will be able to ambulate without assistive device and with minimal to no limp on all surfaces including stairs LTG Duration 07/01/23 Oswestry disability index score Impairment 50% Short Term Goal (STG) Improved Oswestry score to no greater than 35% as measure of improved spinal function and activity tolerance STG Duration 05/21/23 Residential Goal (LTG) Improve Oswestry score to no greater than 20% as measure of improved spinal function and activity tolerance. LTG Duration 07/01/23 Lower extremity functional scale Impairment 35% Short Term Goal (STG) Improve LEFS score to at least 50% as measure of improved right knee function and activity tolerance STG Duration 05/21/23 Residential Goal (LTG) Improve LEFS to at least 75% as measure of improved right knee function and activity tolerance LTG Duration 07/01/23 Progress Towards Goals Progress Towards Goals Progressing Toward Goals Assessment Summary Assessment Able to increase resistance on shuttle leg press and add resisted walking. Cues for neutral LE alignment with all ex. Continue cues for muscle activation sequencing and posture with walking. Physical Therapy Plan Frequency and Duration Frequency of Treatment 2x/Week Duration of treatment (weeks) 12 Plan of Care Start Date 04/01/23 Plan of Care End Date 07/01/23 Therapeutic Interventions Therapeutic Interventions Home Exercise Program,Manual Therapy,Neuromuscular Re- education,Patient/Caregiver Education,Self-Care/Home Management,Soft Tissue Mobilization,Taping, Therapeutic Activities, Therapeutic Exercises Modalities Cold Pack/Ice Massage,Electric Stimulation,Hot Packs, Infrared Therapy,Traction- Mechanical Next Visit Focus/Plan Next Note Type Treatment Note Next Visit Plan Continue strengthening, flexibility, core strengthening. Modalities and manual therapy PRN pain. Add IT band stretch
--- NOTE | 2023-04-30 09:00 | PT.OTN ---
Current Diagnoses Unilateral primary osteoarthritis, right knee (04/30/23) Pain in right knee (04/30/23) Other intervertebral disc displacement, lumbosacral region (04/30/23) Difficulty in walking, not elsewhere classified (04/30/23) Physical Therapy Treatment Note PT-OP-A Visit Information Start: 04/01/23 08:10 Freq: Status: Active Protocol: Document 04/30/23 08:16 [facility]AK (Rec: 04/30/23 09:00 [facility] [id number]) Out-Patient Physical Therapy Visit Information Visit Information Visit Type Treatment Note Visit Start Time 08:15 Visit Stop Time 09:10 Total Visit Minutes 55 Visit Number 7 Number of OUTPATIENT SCHEDULER Visits 0 Evaluation Information Evaluation Date 04/01/23 PT-OP-B Current Condition Start: 04/01/23 08:10 Freq: Status: Active Protocol: Document 04/30/23 08:16 SAK (Rec: 04/30/23 09:00 [facility] [id number]) Current Condition History of Current Condition Onset Date January 30 Current Complaints right knee pain, LBP History of Current Condition Works at a [employer], was on a ladder working on trailer and fell twisting his knee and hitting his knee on boat stand . Also injured his back when he landed on one of the boat stands during a fall. Reports his knee was very swollen. x-rays June 2022 showed arthrits in right knee. Had injection in right knee 02/09/23. Has used ice and heat, rubs his knee. Is off work at this time. Pain in back increases with lifting and bending over. Decreases a little with use of ice and rubbing. Walks for exercise but pain increases with walking. Also reports stage 4 prostate cancer; has Lupron injections every 2 months and taking Expandia medication orally. 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 Uncertain extent of cancer spread. REports right knee is now prone to twisting. Prior Treatments and Tests injection right knee PT-OP-C Subjective Start: 04/01/23 08:10 Freq: Status: Active Protocol: Document 04/30/23 08:16 SAK (Rec: 04/30/23 09:00 [facility] [id number]) OP-PT Subjective Patient Comments Patient Comments Not as much pain as before, improving. PT-OP-F Manual Assessment Start: 04/01/23 08:10 Freq: Status: Active Protocol: Document 04/01/23 08:12 [facility] (Rec: 04/05/23 08:57 [facility] [id number]) Manual Assessments Soft Tissue Assessment Soft Tissue Mobility Assessment decrease soft tissue mobility lumbar paraspinals with tenderness to palpation PT-OP-G Mobility & Gait Start: 04/01/23 08:10 Freq: Status: Active Protocol: Document 04/01/23 08:12 [facility] (Rec: 04/05/23 08:57 [facility] [id number]) OP Gait Assessment Gait Gait Assistance Required: Independent Assistive Devices Assistive Device None Gait Deviations General Gait Pattern Antalgic,Flexed Trunk,Lateral Trunk Lean Factors Limiting Gait Function Factors Limiting Gait Function Decreased Activity Tolerance, Pain PT-OP-H Neuro Start: 04/01/23 08:10 Freq: Status: Active Protocol: Document 04/01/23 08:12 [facility] (Rec: 04/01/23 08:57 [facility] [id number]) Sensation Evaluation Gross Sensation Gross Sensation Right LE Impaired Sensation Description Tingling PT-OP-J Posture/Palpation/Skin Start: 04/01/23 08:10 Freq: Status: Active Protocol: Document 04/01/23 08:12 [facility] (Rec: 04/01/23 08:57 [facility] [id number]) Posture Evaluation Position Standing Head/C-Spine Posture C-Spine Flattened T-Spine Posture Increased Kyphosis L-Spine Posture Decreased Lordosis Knee Posture (R) Genu Varus Palpation Assessment Location lumbar spine Palpation Location L3-L5 Palpation Findings Muscle Guarding,Tenderness right knee Palpation Location posterior Palpation Findings Edema,Tenderness Skin Assessment Edema Assessment right knee Edema Appearance Taut Subjective Edema Description Pain PT-OP-K Range of Motion Start: 04/01/23 08:10 Freq: Status: Active Protocol: Document 04/01/23 08:12 [facility] (Rec: 04/01/23 08:57 [facility] [id number]) Lumbar Spine Range of Motion Lumbar Spine Active Testing Position Standing Flexion 25 Extension 0 Rotation Left 15 Rotation Right 10 Lateral Flexion Left 25 Lateral Flexion Right 20 ROM Limitations Pain Hip Goniometric Range of Motion Hip Right Flexion w/Knee Flexed 90 Straight Leg Raise 30 Extension 0 Abduction 20 Internal Rotation 0 External Rotation 15 left Hip ROM WFL No Flexion w/Knee Flexed 85 Straight Leg Raise 25 Extension 0 Abduction 25 Internal Rotation 10 External Rotation 35 Hip ROM Limitations Hip ROM Limitations Pain Knee Goniometric Range of Motion Knee Right Knee ROM WFL No Flexion Active (degrees) 95 Extension Active (degrees) 22 Left Knee ROM WFL Yes Knee ROM Limitations Knee ROM Limitations Pain,Swelling Ankle and Foot Goniometric Range of Motion Ankle and Foot romero Ankle/Foot ROM WFL Yes PT-OP-L Special Tests Start: 04/01/23 08:10 Freq: Status: Active Protocol: Document 04/01/23 08:12 [facility] (Rec: 04/05/23 08:55 [facility] [id number]) Special Tests Knee Special Tests Apley's Compression Test Results + Valgus- 0 Degrees Test Results - Varus- 0 Degrees Test Results +R Elva Test Test Results +R Anterior Draw Test Results - PT-OP-M Strength Start: 04/01/23 08:10 Freq: Status: Active Protocol: Document 04/01/23 08:12 [facility] (Rec: 04/05/23 08:55 [facility] [id number]) Hip Strength Hip Manual Muscle Testing Right Flexion (L2) 3- Fair- Extension (S1) 3- Fair- Abduction 3- Fair- Adduction 3 Fair External Rotation 3 Fair Internal Rotation 3+ Fair+ Left Flexion (L2) 4 Good Extension (S1) 4 Good Abduction 4 Good Adduction 4 Good External Rotation 4- Good- Internal Rotation 4 Good Knee Strength Knee Manual Muscle Testing Right Flexion (S2) 4 Good Extension (L3) 4- Good- Comments pain with resistance Left Flexion (S2) 5 Normal Extension (L3) 5 Normal Ankle/Foot Strength Ankle and Foot Manual Muscle Testing Right Dorsiflexion (L4) 4 Good Plantarflexion (S1) 4 Good Left Dorsiflexion (L4) 5 Normal Plantarflexion (S1) 5 Normal Toe Strength Toe Manual Muscle Testing Right Great Toe Extension 4 Good Left Great Toe Extension 5 Normal PT-OP-Q Treatments Start: 04/01/23 08:10 Freq: Status: Active Protocol: Document 04/30/23 08:16 [facility] (Rec: 04/30/23 09:00 [facility] [id number]) Cardio Equipment Recumbent Stepper (Sci-Fit) Duration (Minutes) 11 Resistance 2>3 Seat Position 13 Other BUE/BLE: 50-55 RPMs, 1.22 miles miles (last min LE's only) Gym Equipment Cable Column (Body Solid) hamstring curl Details romero, unil Resistance 50, 25 Reps/Time 20 reps, 10 reps x2 Shuttle Recovery Unilateral Squats Details tactile cues for knee alignment lateral/neutral Resistance 37 (dark navy band) Shuttle Recovery Platform Stable Reps/Time 15x2 Bilateral Squats Details L2 TB around distal thighs cues for neutral LE alignment Resistance 75 (3 dark blue bands) Shuttle Recovery Platform Stable Reps/Time [id number] heel press for mid quad/glut fac Therapeutic Exercises Supine Exercises IT band stretch Equipment Used strap Reps/Minutes 2x30 HS stretch Equipment Used strap Reps/Minutes 2x30 Sitting Exercises HS stretch Reps/Minutes 30 x 2 Standing Exercises resisted walking Standing Exercise Name side, fwd,bck Equipment Used L1 TB Reps/Minutes 20 ft ea HC stretch Equipment Used Niraj Reps/Minutes 2x30 Gait Training Gait Activity gait Device Used 0 Surface floor Distance/Duration distances across gym between machines, enter vs leave Treatment Focus TKE, elongated posture, stability, heel toe Comments Cues for upright posturing and TKE stance LE during forward locomotion, tends to walk with slight knee flexion and flexed posture. Improved mechanics post ther ex. PT-OP-R Modalities Start: 04/01/23 08:10 Freq: Status: Active Protocol: Document 04/30/23 08:16 [facility] (Rec: 04/30/23 09:00 [facility] [id number]) Electric Stimulation Electric Stimulation RIGHT KNEE Body Location Anterior/medial/lateral R knee Duration (Minutes) 10 Intensity 43 Target/Sweep Sweep Patient Position Hooklying Combined With Heat/Cold Cold Pack Hot Pack/Cold Pack Treatment Cold Pack Location lumbar spine Patient Position Hooklying Treatment Duration (minutes) 10 Patient Tolerance Good Comments CP + towel laying on PT-OP-T Assessment and Plan Start: 04/01/23 08:10 Freq: Status: Active Protocol: Document 04/30/23 08:16 [facility] (Rec: 04/30/23 09:00 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 Goal (LTG) eliminate right LE radicular symptoms LTG Duration 07/01/23 postural dysfunction Impairment severe lateral shift and forward bent posture Fpc Goal (LTG) Patient to demonstrate minimal postural dysfunction sitting and standing LTG Duration 07/01/23 antalgic gait Short Term Goal (STG) Patient able to ambulate with minimal to no limp with use of appropriate assistive device on level surfaces STG Duration 05/21/23 Fpc Goal (LTG) Patient will be able to ambulate without assistive device and with minimal to no limp on all surfaces including stairs LTG Duration 07/01/23 Oswestry disability index score Impairment 50% Short Term Goal (STG) Improved Oswestry score to no greater than 35% as measure of improved spinal function and activity tolerance STG Duration 05/21/23 Fpc Goal (LTG) Improve Oswestry score to no greater than 20% as measure of improved spinal function and activity tolerance. LTG Duration 07/01/23 Lower extremity functional scale Impairment 35% Short Term Goal (STG) Improve LEFS score to at least 50% as measure of improved right knee function and activity tolerance STG Duration 05/21/23 Fpc Goal (LTG) Improve LEFS to at least 75% as measure of improved right knee function and activity tolerance LTG Duration 07/01/23 Progress Towards Goals Progress Towards Goals Progressing Toward Goals Assessment Summary Assessment ABle to increase resistance single and dble leg with hamstring curl. Doubled distance for resisted walking. Added TB to distal thighs for shuttle leg press with romero LE 's. Physical Therapy Plan Frequency and Duration Frequency of Treatment 2x/Week Duration of treatment (weeks) 12 Plan of Care Start Date 04/01/23 Plan of Care End Date 07/01/23 Therapeutic Interventions Therapeutic Interventions Home Exercise Program,Manual Therapy,Neuromuscular Re- education,Patient/Caregiver Education,Self-Care/Home Management,Soft Tissue Mobilization,Taping, Therapeutic Activities, Therapeutic Exercises Modalities Cold Pack/Ice Massage,Electric Stimulation,Hot Packs, Infrared Therapy,Traction- Mechanical Next Visit Focus/Plan Next Note Type Treatment Note Next Visit Plan Continue strengthening, flexibility, core strengthening. Modalities and manual therapy PRN pain. Sci -Fit with LE's only. Single leg left
--- NOTE | 2023-05-12 12:49 | PT.OTN ---
Current Diagnoses Unilateral primary osteoarthritis, right knee (05/12/23) Pain in right knee (05/12/23) Other intervertebral disc displacement, lumbosacral region (05/12/23) Difficulty in walking, not elsewhere classified (05/12/23) Physical Therapy Treatment Note PT-OP-A Visit Information Start: 04/01/23 08:10 Freq: Status: Active Protocol: Document 05/12/23 10:30 [facility]AK (Rec: 05/12/23 11:13 [facility] [id number]) Out-Patient Physical Therapy Visit Information Visit Information Visit Type Treatment Note Visit Start Time 10:31 Visit Stop Time 11:27 Total Visit Minutes 56 Visit Number 8 Evaluation Information Evaluation Date 04/01/23 PT-OP-B Current Condition Start: 04/01/23 08:10 Freq: Status: Active Protocol: Document 05/12/23 10:30 SAK (Rec: 05/12/23 11:13 [facility]AK [id number]) Current Condition History of Current Condition Onset Date January 30 Current Complaints right knee pain, LBP History of Current Condition Works at a [employer], was on a ladder working on trailer and fell twisting his knee and hitting his knee on boat stand . Also injured his back when he landed on one of the boat stands during a fall. Reports his knee was very swollen. x-rays June 2022 showed arthrits in right knee. Had injection in right knee 02/09/23. Has used ice and heat, rubs his knee. Is off work at this time. Pain in back increases with lifting and bending over. Decreases a little with use of ice and rubbing. Walks for exercise but pain increases with walking. Also reports stage 4 prostate cancer; has Lupron injections every 2 months and taking Expandia medication orally. 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 Uncertain extent of cancer spread. REports right knee is now prone to twisting. Prior Treatments and Tests injection right knee Treatment Goals Patient/Caregiver Goals decrease pain, improve activity tolerance. PT-OP-C Subjective Start: 04/01/23 08:10 Freq: Status: Active Protocol: Document 05/12/23 10:30 SAK (Rec: 05/12/23 11:13 [facility]AK [id number]) OP-PT Subjective Patient Comments Patient Comments Hasn't been able to exercise much because of weather. No new c/o. PT-OP-F Manual Assessment Start: 04/01/23 08:10 Freq: Status: Active Protocol: Document 04/01/23 08:12 SAK (Rec: 04/05/23 08:57 [facility] [id number]) Manual Assessments Soft Tissue Assessment Soft Tissue Mobility Assessment decrease soft tissue mobility lumbar paraspinals with tenderness to palpation PT-OP-G Mobility & Gait Start: 04/01/23 08:10 Freq: Status: Active Protocol: Document 04/01/23 08:12 SAK (Rec: 04/05/23 08:57 [facility] [id number]) OP Gait Assessment Gait Gait Assistance Required: Independent Assistive Devices Assistive Device None Gait Deviations General Gait Pattern Antalgic,Flexed Trunk,Lateral Trunk Lean Factors Limiting Gait Function Factors Limiting Gait Function Decreased Activity Tolerance, Pain PT-OP-H Neuro Start: 04/01/23 08:10 Freq: Status: Active Protocol: Document 04/01/23 08:12 SAK (Rec: 04/01/23 08:57 [facility] [id number]) Sensation Evaluation Gross Sensation Gross Sensation Right LE Impaired Sensation Description Tingling PT-OP-J Posture/Palpation/Skin Start: 04/01/23 08:10 Freq: Status: Active Protocol: Document 04/01/23 08:12 SAK (Rec: 04/01/23 08:57 [facility] [id number]) Posture Evaluation Position Standing Head/C-Spine Posture C-Spine Flattened T-Spine Posture Increased Kyphosis L-Spine Posture Decreased Lordosis Knee Posture (R) Genu Varus Palpation Assessment Location lumbar spine Palpation Location L3-L5 Palpation Findings Muscle Guarding,Tenderness right knee Palpation Location posterior Palpation Findings Edema,Tenderness Skin Assessment Edema Assessment right knee Edema Appearance Taut Subjective Edema Description Pain PT-OP-K Range of Motion Start: 04/01/23 08:10 Freq: Status: Active Protocol: Document 04/01/23 08:12 SAK (Rec: 04/01/23 08:57 [facility] [id number]) Lumbar Spine Range of Motion Lumbar Spine Active Testing Position Standing Flexion 25 Extension 0 Rotation Left 15 Rotation Right 10 Lateral Flexion Left 25 Lateral Flexion Right 20 ROM Limitations Pain Hip Goniometric Range of Motion Hip Right Flexion w/Knee Flexed 90 Straight Leg Raise 30 Extension 0 Abduction 20 Internal Rotation 0 External Rotation 15 left Hip ROM WFL No Flexion w/Knee Flexed 85 Straight Leg Raise 25 Extension 0 Abduction 25 Internal Rotation 10 External Rotation 35 Hip ROM Limitations Hip ROM Limitations Pain Knee Goniometric Range of Motion Knee Right Knee ROM WFL No Flexion Active (degrees) 95 Extension Active (degrees) 22 Left Knee ROM WFL Yes Knee ROM Limitations Knee ROM Limitations Pain,Swelling Ankle and Foot Goniometric Range of Motion Ankle and Foot romero Ankle/Foot ROM WFL Yes PT-OP-L Special Tests Start: 04/01/23 08:10 Freq: Status: Active Protocol: Document 04/01/23 08:12 [facility] (Rec: 04/05/23 08:55 [facility] [id number]) Special Tests Knee Special Tests Apley's Compression Test Results + Valgus- 0 Degrees Test Results - Varus- 0 Degrees Test Results +R Elva Test Test Results +R Anterior Draw Test Results - PT-OP-M Strength Start: 04/01/23 08:10 Freq: Status: Active Protocol: Document 04/01/23 08:12 [facility] (Rec: 04/05/23 08:55 [facility] [id number]) Hip Strength Hip Manual Muscle Testing Right Flexion (L2) 3- Fair- Extension (S1) 3- Fair- Abduction 3- Fair- Adduction 3 Fair External Rotation 3 Fair Internal Rotation 3+ Fair+ Left Flexion (L2) 4 Good Extension (S1) 4 Good Abduction 4 Good Adduction 4 Good External Rotation 4- Good- Internal Rotation 4 Good Knee Strength Knee Manual Muscle Testing Right Flexion (S2) 4 Good Extension (L3) 4- Good- Comments pain with resistance Left Flexion (S2) 5 Normal Extension (L3) 5 Normal Ankle/Foot Strength Ankle and Foot Manual Muscle Testing Right Dorsiflexion (L4) 4 Good Plantarflexion (S1) 4 Good Left Dorsiflexion (L4) 5 Normal Plantarflexion (S1) 5 Normal Toe Strength Toe Manual Muscle Testing Right Great Toe Extension 4 Good Left Great Toe Extension 5 Normal PT-OP-Q Treatments Start: 04/01/23 08:10 Freq: Status: Active Protocol: Document 05/12/23 10:30 [facility] (Rec: 05/12/23 11:13 [facility] [id number]) Cardio Equipment Recumbent Stepper (Sci-Fit) Duration (Minutes) 10 Resistance 2>3 Seat Position 12 Other BUE/BLE: 50-55 RPMs, 1.22 miles miles (last min LE's only) Therapeutic Exercises Supine Exercises bridge Supine Exercise Name HEP review Reps/Minutes 10+x Comments cues for feet apart/neutral ankle IV SLR Supine Exercise Name HEP review Side bilateral Reps/Minutes 10x Comments cues for core activation, TKE Mod cues maintain Sidelying Exercises hip abd Sidelying Exercise Name HEP review Side bilateral Reps/Minutes 12x2 Comments tactile cues for stacked alignment, ankle DF/EV neutral , TKE- improved hip Sitting Exercises LAQ Equipment Used L2 TB Reps/Minutes 10x HS stretch Reps/Minutes 30 x 2 Standing Exercises lift Reps/Minutes 3x Comments discontinued due to balance difficulty, unsafe, poor alignment resisted walking Standing Exercise Name side, fwd,bck Equipment Used L1 TB Reps/Minutes 20 ft ea Gait Training Gait Activity gait Device Used 0 Surface floor Distance/Duration distances across gym between machines, enter vs leave Treatment Focus TKE, elongated posture, stability, heel toe Comments Cues for upright posturing and TKE stance LE during forward locomotion, tends to walk with slight knee flexion and flexed posture. Improved mechanics post ther ex. PT-OP-R Modalities Start: 04/01/23 08:10 Freq: Status: Active Protocol: Document 05/12/23 10:30 SAK (Rec: 05/12/23 11:13 [facility] [id number]) Electric Stimulation Electric Stimulation RIGHT KNEE Body Location Anterior/medial/lateral R knee Duration (Minutes) 10 Intensity 43 Target/Sweep Sweep Patient Position Hooklying Combined With Heat/Cold Cold Pack Hot Pack/Cold Pack Treatment Cold Pack Location lumbar spine Patient Position Hooklying Treatment Duration (minutes) 10 Patient Tolerance Good Comments CP + towel laying on PT-OP-T Assessment and Plan Start: 04/01/23 08:10 Freq: Status: Active Protocol: Document 05/12/23 10:30 SAK (Rec: 05/12/23 11:13 [facility] [id number]) Physical Therapy Assessment Impairments Impairments Activity Tolerance,Gait,Pain, Posture Goals radicular symptoms right LE Preassembler And Inspector Goal (LTG) eliminate right LE radicular symptoms LTG Duration 07/01/23 postural dysfunction Impairment severe lateral shift and forward bent posture Preassembler And Inspector Goal (LTG) Patient to demonstrate minimal postural dysfunction sitting and standing LTG Duration 07/01/23 antalgic gait Short Term Goal (STG) Patient able to ambulate with minimal to no limp with use of appropriate assistive device on level surfaces STG Duration 05/21/23 Preassembler And Inspector Goal (LTG) Patient will be able to ambulate without assistive device and with minimal to no limp on all surfaces including stairs LTG Duration 07/01/23 Oswestry disability index score Impairment 50% Short Term Goal (STG) Improved Oswestry score to no greater than 35% as measure of improved spinal function and activity tolerance STG Duration 05/21/23 Preassembler And Inspector Goal (LTG) Improve Oswestry score to no greater than 20% as measure of improved spinal function and activity tolerance. LTG Duration 07/01/23 Lower extremity functional scale Impairment 35% Short Term Goal (STG) Improve LEFS score to at least 50% as measure of improved right knee function and activity tolerance STG Duration 05/21/23 Preassembler And Inspector Goal (LTG) Improve LEFS to at least 75% as measure of improved right knee function and activity tolerance LTG Duration 07/01/23 Progress Towards Goals Progress Towards Goals Progressing Toward Goals Assessment Summary Assessment decreased swelling in right knee and improved postural awareness. Patient reporting PT helpful, not able to ex much with bad weather. [place] so limited space. Spent most of session with ther ex pt can perform at home , modifying resisted walking to 2 steps ea direction repeatedly, added squads and resisted quad and HS with TB seated. Patient demonstrated good understanding and was issued updated HO. Physical Therapy Plan Frequency and Duration Frequency of Treatment 2x/Week Duration of treatment (weeks) 12 Plan of Care Start Date 04/01/23 Plan of Care End Date 07/01/23 Therapeutic Interventions Therapeutic Interventions Home Exercise Program,Manual Therapy,Neuromuscular Re- education,Patient/Caregiver Education,Self-Care/Home Management,Soft Tissue Mobilization,Taping, Therapeutic Activities, Therapeutic Exercises Modalities Cold Pack/Ice Massage,Electric Stimulation,Hot Packs, Infrared Therapy,Traction- Mechanical Next Visit Focus/Plan Next Note Type Treatment Note Next Visit Plan Assess response to new ex, continue strengthening and flexibility, core strengthening, manual therapy and modalities PRN pain.
--- NOTE | 2023-05-26 16:05 | PT.OTN ---
Current Diagnoses Unilateral primary osteoarthritis, right knee (05/26/23) Pain in right knee (05/26/23) Other intervertebral disc displacement, lumbosacral region (05/26/23) Difficulty in walking, not elsewhere classified (05/26/23) Physical Therapy Treatment Note PT-OP-A Visit Information Start: 04/01/23 08:10 Freq: Status: Active Protocol: Document 05/26/23 15:17 SAK (Rec: 05/26/23 16:04 [facility] [id number]) Out-Patient Physical Therapy Visit Information Visit Information Visit Type Treatment Note Visit Start Time 15:17 Visit Stop Time 16:12 Visit Number 9 Evaluation Information Evaluation Date 04/01/23 PT-OP-B Current Condition Start: 04/01/23 08:10 Freq: Status: Active Protocol: Document 05/26/23 15:17 SAK (Rec: 05/26/23 16:04 [facility] [id number]) Current Condition History of Current Condition Onset Date January 30 Current Complaints right knee pain, LBP History of Current Condition Works at a [employer]), was on a ladder working on trailer and fell twisting his knee and hitting his knee on boat stand . Also injured his back when he landed on one of the boat stands during a fall. Reports his knee was very swollen. x-rays June 2022 showed arthrits in right knee. Had injection in right knee 02/09/23. Has used ice and heat, rubs his knee. Is off work at this time. Pain in back increases with lifting and bending over. Decreases a little with use of ice and rubbing. Walks for exercise but pain increases with walking. Also reports stage 4 prostate cancer; has Lupron injections every 2 months and taking Expandia medication orally. 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 Uncertain extent of cancer spread. REports right knee is now prone to twisting. Prior Treatments and Tests injection right knee Treatment Goals Patient/Caregiver Goals decrease pain, improve activity tolerance. PT-OP-C Subjective Start: 04/01/23 08:10 Freq: Status: Active Protocol: Document 05/26/23 15:17 SAK (Rec: 05/26/23 16:04 [facility] [id number]) OP-PT Subjective Patient Comments Patient Comments Has been using hot tub recently, trying to stand up straighter. PT-OP-F Manual Assessment Start: 04/01/23 08:10 Freq: Status: Active Protocol: Document 04/01/23 08:12 SAK (Rec: 04/05/23 08:57 [facility] [id number]) Manual Assessments Soft Tissue Assessment Soft Tissue Mobility Assessment decrease soft tissue mobility lumbar paraspinals with tenderness to palpation PT-OP-G Mobility & Gait Start: 04/01/23 08:10 Freq: Status: Active Protocol: Document 04/01/23 08:12 SAK (Rec: 04/05/23 08:57 [facility] [id number]) OP Gait Assessment Gait Gait Assistance Required: Independent Assistive Devices Assistive Device None Gait Deviations General Gait Pattern Antalgic,Flexed Trunk,Lateral Trunk Lean Factors Limiting Gait Function Factors Limiting Gait Function Decreased Activity Tolerance, Pain PT-OP-H Neuro Start: 04/01/23 08:10 Freq: Status: Active Protocol: Document 04/01/23 08:12 SAK (Rec: 04/01/23 08:57 [facility] [id number]) Sensation Evaluation Gross Sensation Gross Sensation Right LE Impaired Sensation Description Tingling PT-OP-J Posture/Palpation/Skin Start: 04/01/23 08:10 Freq: Status: Active Protocol: Document 04/01/23 08:12 SAK (Rec: 04/01/23 08:57 [facility] [id number]) Posture Evaluation Position Standing Head/C-Spine Posture C-Spine Flattened T-Spine Posture Increased Kyphosis L-Spine Posture Decreased Lordosis Knee Posture (R) Genu Varus Palpation Assessment Location lumbar spine Palpation Location L3-L5 Palpation Findings Muscle Guarding,Tenderness right knee Palpation Location posterior Palpation Findings Edema,Tenderness Skin Assessment Edema Assessment right knee Edema Appearance Taut Subjective Edema Description Pain PT-OP-K Range of Motion Start: 04/01/23 08:10 Freq: Status: Active Protocol: Document 04/01/23 08:12 SAK (Rec: 04/01/23 08:57 [facility] [id number]) Lumbar Spine Range of Motion Lumbar Spine Active Testing Position Standing Flexion 25 Extension 0 Rotation Left 15 Rotation Right 10 Lateral Flexion Left 25 Lateral Flexion Right 20 ROM Limitations Pain Hip Goniometric Range of Motion Hip Right Flexion w/Knee Flexed 90 Straight Leg Raise 30 Extension 0 Abduction 20 Internal Rotation 0 External Rotation 15 left Hip ROM WFL No Flexion w/Knee Flexed 85 Straight Leg Raise 25 Extension 0 Abduction 25 Internal Rotation 10 External Rotation 35 Hip ROM Limitations Hip ROM Limitations Pain Knee Goniometric Range of Motion Knee Right Knee ROM WFL No Flexion Active (degrees) 95 Extension Active (degrees) 22 Left Knee ROM WFL Yes Knee ROM Limitations Knee ROM Limitations Pain,Swelling Ankle and Foot Goniometric Range of Motion Ankle and Foot romero Ankle/Foot ROM WFL Yes PT-OP-L Special Tests Start: 04/01/23 08:10 Freq: Status: Active Protocol: Document 04/01/23 08:12 [facility] (Rec: 04/05/23 08:55 [facility] [id number]) Special Tests Knee Special Tests Apley's Compression Test Results + Valgus- 0 Degrees Test Results - Varus- 0 Degrees Test Results +R Elva Test Test Results +R Anterior Draw Test Results - PT-OP-M Strength Start: 04/01/23 08:10 Freq: Status: Active Protocol: Document 04/01/23 08:12 [facility] (Rec: 04/05/23 08:55 [facility] [id number]) Hip Strength Hip Manual Muscle Testing Right Flexion (L2) 3- Fair- Extension (S1) 3- Fair- Abduction 3- Fair- Adduction 3 Fair External Rotation 3 Fair Internal Rotation 3+ Fair+ Left Flexion (L2) 4 Good Extension (S1) 4 Good Abduction 4 Good Adduction 4 Good External Rotation 4- Good- Internal Rotation 4 Good Knee Strength Knee Manual Muscle Testing Right Flexion (S2) 4 Good Extension (L3) 4- Good- Comments pain with resistance Left Flexion (S2) 5 Normal Extension (L3) 5 Normal Ankle/Foot Strength Ankle and Foot Manual Muscle Testing Right Dorsiflexion (L4) 4 Good Plantarflexion (S1) 4 Good Left Dorsiflexion (L4) 5 Normal Plantarflexion (S1) 5 Normal Toe Strength Toe Manual Muscle Testing Right Great Toe Extension 4 Good Left Great Toe Extension 5 Normal PT-OP-Q Treatments Start: 04/01/23 08:10 Freq: Status: Active Protocol: Document 05/26/23 15:17 [facility] (Rec: 05/26/23 16:04 [facility] [id number]) Cardio Equipment Recumbent Stepper (Sci-Fit) Duration (Minutes) 12 Resistance 2>3 Seat Position 12 Other BUE/BLE: 50-55 RPMs, 1.44 miles miles (last min LE's only) Gym Equipment Cable Column (Body Solid) hamstring curl Details romero, unil Resistance 50, 25 Reps/Time 20 reps, 10 reps x2 Shuttle Recovery Unilateral Squats Details tactile cues for knee alignment lateral/neutral Resistance 37 (dark navy band) Shuttle Recovery Platform Stable Reps/Time 15x2 Bilateral Squats Details L2 TB around distal thighs cues for neutral LE alignment Resistance 75 (3 dark blue bands) Shuttle Recovery Platform Stable Reps/Time [id number] heel press for mid quad/glut fac Therapeutic Exercises Supine Exercises IT band stretch Equipment Used strap Reps/Minutes 2x30 HS stretch Equipment Used strap Reps/Minutes 2x30 Standing Exercises resisted walking Standing Exercise Name side, fwd,bck Equipment Used L3 TB Reps/Minutes 20 ft ea Manual Therapy Treatment Taping right knee Body Location anterior Treatment Focus edema reduction Type of Tape Kinesio Tape Skin Inspection intact Comments 2 fan strips crossing Self-Care/Home Management Treatment Education Patient Education Home Exercise Program,Joint Protection,Pain Management, Posture PT-OP-R Modalities Start: 04/01/23 08:10 Freq: Status: Active Protocol: Document 05/26/23 15:17 [facility] (Rec: 05/26/23 16:04 [facility] [id number]) Electric Stimulation Electric Stimulation RIGHT KNEE Body Location Anterior/medial/lateral R knee Intensity 43 Target/Sweep Sweep Patient Position Hooklying Combined With Heat/Cold Cold Pack Hot Pack/Cold Pack Treatment Cold Pack Location lumbar spine Patient Position Hooklying Patient Tolerance Good Comments CP + towel laying on PT-OP-T Assessment and Plan Start: 04/01/23 08:10 Freq: Status: Active Protocol: Document 05/26/23 15:17 [facility] (Rec: 05/26/23 16:04 [facility] [id number]) Physical Therapy Assessment Impairments Impairments Activity Tolerance,Gait,Pain, Posture Goals radicular symptoms right LE Longterm Goal (LTG) eliminate right LE radicular symptoms LTG Duration 07/01/23 postural dysfunction Impairment severe lateral shift and forward bent posture Longterm Goal (LTG) Patient to demonstrate minimal postural dysfunction sitting and standing LTG Duration 07/01/23 antalgic gait Short Term Goal (STG) Patient able to ambulate with minimal to no limp with use of appropriate assistive device on level surfaces STG Duration 05/21/23 Longterm Goal (LTG) Patient will be able to ambulate without assistive device and with minimal to no limp on all surfaces including stairs LTG Duration 07/01/23 Oswestry disability index score Impairment 50% Short Term Goal (STG) Improved Oswestry score to no greater than 35% as measure of improved spinal function and activity tolerance STG Duration 05/21/23 Lavatory Attendant Goal (LTG) Improve Oswestry score to no greater than 20% as measure of improved spinal function and activity tolerance. LTG Duration 07/01/23 Lower extremity functional scale Impairment 35% Short Term Goal (STG) Improve LEFS score to at least 50% as measure of improved right knee function and activity tolerance STG Duration 05/21/23 Longterm Goal (LTG) Improve LEFS to at least 75% as measure of improved right knee function and activity tolerance LTG Duration 07/01/23 Progress Towards Goals Progress Towards Goals Progressing Toward Goals Assessment Summary Assessment Able to increase resistance on SCiFit and with resisted walking. More upright posture . Compliant to HEP. Reports improvement. Physical Therapy Plan Frequency and Duration Frequency of Treatment 2x/Week Duration of treatment (weeks) 12 Plan of Care Start Date 04/01/23 Plan of Care End Date 07/01/23 Therapeutic Interventions Therapeutic Interventions Home Exercise Program,Manual Therapy,Neuromuscular Re- education,Patient/Caregiver Education,Self-Care/Home Management,Soft Tissue Mobilization,Taping, Therapeutic Activities, Therapeutic Exercises Modalities Cold Pack/Ice Massage,Electric Stimulation,Hot Packs, Infrared Therapy,Traction- Mechanical Next Visit Focus/Plan Next Note Type Treatment Note Next Visit Plan Continue progressive strengthening, core stab, flexibility, modalities PRN pain.
--- NOTE | 2023-06-01 16:31 | PT.OTN ---
Current Diagnoses Unilateral primary osteoarthritis, right knee (06/01/23) Pain in right knee (06/01/23) Other intervertebral disc displacement, lumbosacral region (06/01/23) Difficulty in walking, not elsewhere classified (06/01/23) Physical Therapy Treatment Note PT-OP-A Visit Information Start: 04/01/23 08:10 Freq: Status: Active Protocol: Document 06/01/23 09:46 SAK (Rec: 06/01/23 10:32 [facility] [id number]) Out-Patient Physical Therapy Visit Information Visit Information Visit Type Treatment Note Visit Start Time 09:46 Visit Stop Time 10:41 Visit Number 10 Evaluation Information Evaluation Date 04/01/23 PT-OP-B Current Condition Start: 04/01/23 08:10 Freq: Status: Active Protocol: Document 06/01/23 09:46 SAK (Rec: 06/01/23 10:32 [facility] [id number]) Current Condition History of Current Condition Onset Date January 30 Current Complaints right knee pain, LBP History of Current Condition Works at a [employer], was on a ladder working on trailer and fell twisting his knee and hitting his knee on boat stand . Also injured his back when he landed on one of the boat stands during a fall. Reports his knee was very swollen. x-rays June 2022 showed arthrits in right knee. Had injection in right knee 02/09/23. Has used ice and heat, rubs his knee. Is off work at this time. Pain in back increases with lifting and bending over. Decreases a little with use of ice and rubbing. Walks for exercise but pain increases with walking. Also reports stage 4 prostate cancer; has Lupron injections every 2 months and taking Expandia medication orally. 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 Uncertain extent of cancer spread. REports right knee is now prone to twisting. Prior Treatments and Tests injection right knee Treatment Goals Patient/Caregiver Goals decrease pain, improve activity tolerance. PT-OP-C Subjective Start: 04/01/23 08:10 Freq: Status: Active Protocol: Document 06/01/23 09:46 SAK (Rec: 06/01/23 10:32 [facility] [id number]) OP-PT Subjective Patient Comments Patient Comments Took kinesiotape off last night. Overall improving with PT Patient Reported Progress Improving PT-OP-F Manual Assessment Start: 04/01/23 08:10 Freq: Status: Active Protocol: Document 04/01/23 08:12 SAK (Rec: 04/05/23 08:57 [facility] [id number]) Manual Assessments Soft Tissue Assessment Soft Tissue Mobility Assessment decrease soft tissue mobility lumbar paraspinals with tenderness to palpation PT-OP-G Mobility & Gait Start: 04/01/23 08:10 Freq: Status: Active Protocol: Document 04/01/23 08:12 SAK (Rec: 04/05/23 08:57 [facility] [id number]) OP Gait Assessment Gait Gait Assistance Required: Independent Assistive Devices Assistive Device None Gait Deviations General Gait Pattern Antalgic,Flexed Trunk,Lateral Trunk Lean Factors Limiting Gait Function Factors Limiting Gait Function Decreased Activity Tolerance, Pain PT-OP-H Neuro Start: 04/01/23 08:10 Freq: Status: Active Protocol: Document 04/01/23 08:12 SAK (Rec: 04/01/23 08:57 [facility] [id number]) Sensation Evaluation Gross Sensation Gross Sensation Right LE Impaired Sensation Description Tingling PT-OP-J Posture/Palpation/Skin Start: 04/01/23 08:10 Freq: Status: Active Protocol: Document 04/01/23 08:12 SAK (Rec: 04/01/23 08:57 [facility] [id number]) Posture Evaluation Position Standing Head/C-Spine Posture C-Spine Flattened T-Spine Posture Increased Kyphosis L-Spine Posture Decreased Lordosis Knee Posture (R) Genu Varus Palpation Assessment Location lumbar spine Palpation Location L3-L5 Palpation Findings Muscle Guarding,Tenderness right knee Palpation Location posterior Palpation Findings Edema,Tenderness Skin Assessment Edema Assessment right knee Edema Appearance Taut Subjective Edema Description Pain PT-OP-K Range of Motion Start: 04/01/23 08:10 Freq: Status: Active Protocol: Document 04/01/23 08:12 SAK (Rec: 04/01/23 08:57 [facility] [id number]) Lumbar Spine Range of Motion Lumbar Spine Active Testing Position Standing Flexion 25 Extension 0 Rotation Left 15 Rotation Right 10 Lateral Flexion Left 25 Lateral Flexion Right 20 ROM Limitations Pain Hip Goniometric Range of Motion Hip Right Flexion w/Knee Flexed 90 Straight Leg Raise 30 Extension 0 Abduction 20 Internal Rotation 0 External Rotation 15 left Hip ROM WFL No Flexion w/Knee Flexed 85 Straight Leg Raise 25 Extension 0 Abduction 25 Internal Rotation 10 External Rotation 35 Hip ROM Limitations Hip ROM Limitations Pain Knee Goniometric Range of Motion Knee Right Knee ROM WFL No Flexion Active (degrees) 95 Extension Active (degrees) 22 Left Knee ROM WFL Yes Knee ROM Limitations Knee ROM Limitations Pain,Swelling Ankle and Foot Goniometric Range of Motion Ankle and Foot romero Ankle/Foot ROM WFL Yes PT-OP-L Special Tests Start: 04/01/23 08:10 Freq: Status: Active Protocol: Document 04/01/23 08:12 [facility] (Rec: 04/05/23 08:55 [facility] [id number]) Special Tests Knee Special Tests Apley's Compression Test Results + Valgus- 0 Degrees Test Results - Varus- 0 Degrees Test Results +R Elva Test Test Results +R Anterior Draw Test Results - PT-OP-M Strength Start: 04/01/23 08:10 Freq: Status: Active Protocol: Document 04/01/23 08:12 [facility] (Rec: 04/05/23 08:55 [facility] [id number]) Hip Strength Hip Manual Muscle Testing Right Flexion (L2) 3- Fair- Extension (S1) 3- Fair- Abduction 3- Fair- Adduction 3 Fair External Rotation 3 Fair Internal Rotation 3+ Fair+ Left Flexion (L2) 4 Good Extension (S1) 4 Good Abduction 4 Good Adduction 4 Good External Rotation 4- Good- Internal Rotation 4 Good Knee Strength Knee Manual Muscle Testing Right Flexion (S2) 4 Good Extension (L3) 4- Good- Comments pain with resistance Left Flexion (S2) 5 Normal Extension (L3) 5 Normal Ankle/Foot Strength Ankle and Foot Manual Muscle Testing Right Dorsiflexion (L4) 4 Good Plantarflexion (S1) 4 Good Left Dorsiflexion (L4) 5 Normal Plantarflexion (S1) 5 Normal Toe Strength Toe Manual Muscle Testing Right Great Toe Extension 4 Good Left Great Toe Extension 5 Normal PT-OP-Q Treatments Start: 04/01/23 08:10 Freq: Status: Active Protocol: Document 06/01/23 09:46 [facility] (Rec: 06/01/23 10:32 [facility] [id number]) Cardio Equipment Recumbent Stepper (Sci-Fit) Duration (Minutes) 10 Resistance 2>3 Seat Position 12 Other BUE/BLE: 50-55 RPMs, 1.44 miles miles (last min LE's only) Gym Equipment Cable Column (Body Solid) hamstring curl Details romero, unil Resistance 50, 25 Reps/Time 20 reps, 10 reps x2 Pallof Press Resistance L3 TB Reps/Time 10x Shuttle Recovery Unilateral Squats Details tactile cues for knee alignment lateral/neutral Resistance 37 (dark navy band) Shuttle Recovery Platform Stable Reps/Time 15x2 Bilateral Squats Details L2 TB around distal thighs cues for neutral LE alignment Resistance 75 (3 dark blue bands) Shuttle Recovery Platform Stable Reps/Time [id number] heel press for mid quad/glut fac Shuttle Balance red clips Comments fwd & side: WBOS & NBOS staggered stance fwd Therapeutic Ball seated Ball Size/Color 65cm Body Position seated Reps/Duration 10 ea (1-4) Comments 1. pelvic [place] 2. june alt B 3. kicks B 4. lean back V sit 5. fwd flex stretch 2X30 SEC supine Ball Size/Color Red - 55 cm Body Position Supine Reps/Duration 10 ea Comments 1. LTR 2. Bridging 3 Resisted hip flexion (Lv 3) Sport Cord walking Exercise Details fwd,bck,side Cord/Resistance red Reps/Duration 5xea Therapeutic Exercises Supine Exercises IT band stretch Equipment Used strap Reps/Minutes 2x30 HS stretch Equipment Used strap Reps/Minutes 2x30 Sidelying Exercises hip abd Sidelying Exercise Name HEP review Side bilateral Equipment Used wall Reps/Minutes 12x2 Comments tactile cues for stacked alignment, ankle DF/EV neutral , TKE- improved hip Sitting Exercises chair squats Equipment Used mirror Reps/Minutes 10x2 Comments cues for neutral LE alignment Manual Therapy Treatment Taping right knee Body Location anterior Treatment Focus edema reduction Type of Tape Kinesio Tape Skin Inspection intact Comments 2 fan strips crossing PT-OP-R Modalities Start: 04/01/23 08:10 Freq: Status: Active Protocol: Document 06/01/23 09:46 [facility] (Rec: 06/01/23 10:32 [facility] [id number]) Electric Stimulation Electric Stimulation RIGHT KNEE Body Location Anterior/medial/lateral R knee Intensity 43 Target/Sweep Sweep Patient Position Hooklying Combined With Heat/Cold Cold Pack PT-OP-T Assessment and Plan Start: 04/01/23 08:10 Freq: Status: Active Protocol: Document 06/01/23 09:46 [facility] (Rec: 06/01/23 10:32 [facility] [id number]) Physical Therapy Assessment Impairments Impairments Activity Tolerance,Gait,Pain, Posture Goals radicular symptoms right LE Half-Way Goal (LTG) eliminate right LE radicular symptoms LTG Duration 07/01/23 postural dysfunction Impairment severe lateral shift and forward bent posture Half-Way Goal (LTG) Patient to demonstrate minimal postural dysfunction sitting and standing 06/01/23: good goal progress LTG Duration 07/01/23 antalgic gait Short Term Goal (STG) Patient able to ambulate with minimal to no limp with use of appropriate assistive device on level surfaces 06/01/23: good goal progress, no device. significant genu valgus right LE STG Duration goal met Half-Way Goal (LTG) Patient will be able to ambulate without assistive device and with minimal to no limp on all surfaces including stairs LTG Duration 07/01/23 Oswestry disability index score Impairment 50% Short Term Goal (STG) Improved Oswestry score to no greater than 35% as measure of improved spinal function and activity tolerance 06/01/23: goal progress, dec to 42% STG Duration 05/21/23 Radiator Repairer Goal (LTG) Improve Oswestry score to no greater than 20% as measure of improved spinal function and activity tolerance. LTG Duration 07/01/23 Lower extremity functional scale Impairment 35% Short Term Goal (STG) Improve LEFS score to at least 50% as measure of improved right knee function and activity tolerance 06/03/23: goal % STG Duration 05/21/23 Half-Way Goal (LTG) Improve LEFS to at least 75% as measure of improved right knee function and activity tolerance LTG Duration 07/01/23 Progress Towards Goals Progress Towards Goals Progressing Toward Goals Assessment Summary Assessment Patient reporting functional gains, pain level 5/10. Goal progress but with potential for further improvement. Physical Therapy Plan Frequency and Duration Frequency of Treatment 2x/Week Duration of treatment (weeks) 12 Plan of Care Start Date 04/01/23 Plan of Care End Date 07/01/23 Therapeutic Interventions Therapeutic Interventions Home Exercise Program,Manual Therapy,Neuromuscular Re- education,Patient/Caregiver Education,Self-Care/Home Management,Soft Tissue Mobilization,Taping, Therapeutic Activities, Therapeutic Exercises Modalities Cold Pack/Ice Massage,Electric Stimulation,Hot Packs, Infrared Therapy,Traction- Mechanical Next Visit Focus/Plan Next Note Type Treatment Note Next Visit Plan Continue progressive strengthening, core stab, flexibility, modalities PRN pain. MIrror for visual feedback. Add lunges.
--- NOTE | 2023-06-04 12:11 | PT.OTN ---
Current Diagnoses Unilateral primary osteoarthritis, right knee (06/04/23) Pain in right knee (06/04/23) Other intervertebral disc displacement, lumbosacral region (06/04/23) Difficulty in walking, not elsewhere classified (06/04/23) Physical Therapy Treatment Note PT-OP-A Visit Information Start: 04/01/23 08:10 Freq: Status: Active Protocol: Document 06/04/23 11:17 SAK (Rec: 06/04/23 12:10 [facility] [id number]) Out-Patient Physical Therapy Visit Information Visit Information Visit Type Treatment Note Visit Start Time 11:18 Visit Stop Time 12:14 Visit Number 11 Evaluation Information Evaluation Date 04/01/23 PT-OP-B Current Condition Start: 04/01/23 08:10 Freq: Status: Active Protocol: Document 06/04/23 11:17 SAK (Rec: 06/04/23 12:10 [facility] [id number]) Current Condition History of Current Condition Onset Date January 30 Current Complaints right knee pain, LBP History of Current Condition Works at a [employer], was on a ladder working on trailer and fell twisting his knee and hitting his knee on boat stand . Also injured his back when he landed on one of the boat stands during a fall. Reports his knee was very swollen. x-rays June 2022 showed arthrits in right knee. Had injection in right knee 02/09/23. Has used ice and heat, rubs his knee. Is off work at this time. Pain in back increases with lifting and bending over. Decreases a little with use of ice and rubbing. Walks for exercise but pain increases with walking. Also reports stage 4 prostate cancer; has Lupron injections every 2 months and taking Expandia medication orally. 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 Uncertain extent of cancer spread. REports right knee is now prone to twisting. Prior Treatments and Tests injection right knee Treatment Goals Patient/Caregiver Goals decrease pain, improve activity tolerance. PT-OP-C Subjective Start: 04/01/23 08:10 Freq: Status: Active Protocol: Document 06/04/23 11:17 SAK (Rec: 06/04/23 12:10 [facility] [id number]) OP-PT Subjective Patient Comments Patient Comments Kinesiotape still intact, feels good, swelling coming down. Patient Reported Progress Improving PT-OP-F Manual Assessment Start: 04/01/23 08:10 Freq: Status: Active Protocol: Document 04/01/23 08:12 SAK (Rec: 04/05/23 08:57 [facility] [id number]) Manual Assessments Soft Tissue Assessment Soft Tissue Mobility Assessment decrease soft tissue mobility lumbar paraspinals with tenderness to palpation PT-OP-G Mobility & Gait Start: 04/01/23 08:10 Freq: Status: Active Protocol: Document 04/01/23 08:12 SAK (Rec: 04/05/23 08:57 [facility] [id number]) OP Gait Assessment Gait Gait Assistance Required: Independent Assistive Devices Assistive Device None Gait Deviations General Gait Pattern Antalgic,Flexed Trunk,Lateral Trunk Lean Factors Limiting Gait Function Factors Limiting Gait Function Decreased Activity Tolerance, Pain PT-OP-H Neuro Start: 04/01/23 08:10 Freq: Status: Active Protocol: Document 04/01/23 08:12 SAK (Rec: 04/01/23 08:57 [facility] [id number]) Sensation Evaluation Gross Sensation Gross Sensation Right LE Impaired Sensation Description Tingling PT-OP-J Posture/Palpation/Skin Start: 04/01/23 08:10 Freq: Status: Active Protocol: Document 04/01/23 08:12 SAK (Rec: 04/01/23 08:57 [facility] [id number]) Posture Evaluation Position Standing Head/C-Spine Posture C-Spine Flattened T-Spine Posture Increased Kyphosis L-Spine Posture Decreased Lordosis Knee Posture (R) Genu Varus Palpation Assessment Location lumbar spine Palpation Location L3-L5 Palpation Findings Muscle Guarding,Tenderness right knee Palpation Location posterior Palpation Findings Edema,Tenderness Skin Assessment Edema Assessment right knee Edema Appearance Taut Subjective Edema Description Pain PT-OP-K Range of Motion Start: 04/01/23 08:10 Freq: Status: Active Protocol: Document 04/01/23 08:12 SAK (Rec: 04/01/23 08:57 [facility] [id number]) Lumbar Spine Range of Motion Lumbar Spine Active Testing Position Standing Flexion 25 Extension 0 Rotation Left 15 Rotation Right 10 Lateral Flexion Left 25 Lateral Flexion Right 20 ROM Limitations Pain Hip Goniometric Range of Motion Hip Right Flexion w/Knee Flexed 90 Straight Leg Raise 30 Extension 0 Abduction 20 Internal Rotation 0 External Rotation 15 left Hip ROM WFL No Flexion w/Knee Flexed 85 Straight Leg Raise 25 Extension 0 Abduction 25 Internal Rotation 10 External Rotation 35 Hip ROM Limitations Hip ROM Limitations Pain Knee Goniometric Range of Motion Knee Right Knee ROM WFL No Flexion Active (degrees) 95 Extension Active (degrees) 22 Left Knee ROM WFL Yes Knee ROM Limitations Knee ROM Limitations Pain,Swelling Ankle and Foot Goniometric Range of Motion Ankle and Foot romero Ankle/Foot ROM WFL Yes PT-OP-L Special Tests Start: 04/01/23 08:10 Freq: Status: Active Protocol: Document 04/01/23 08:12 [facility] (Rec: 04/05/23 08:55 [facility] [id number]) Special Tests Knee Special Tests Apley's Compression Test Results + Valgus- 0 Degrees Test Results - Varus- 0 Degrees Test Results +R Elva Test Test Results +R Anterior Draw Test Results - PT-OP-M Strength Start: 04/01/23 08:10 Freq: Status: Active Protocol: Document 04/01/23 08:12 [facility] (Rec: 04/05/23 08:55 [facility] [id number]) Hip Strength Hip Manual Muscle Testing Right Flexion (L2) 3- Fair- Extension (S1) 3- Fair- Abduction 3- Fair- Adduction 3 Fair External Rotation 3 Fair Internal Rotation 3+ Fair+ Left Flexion (L2) 4 Good Extension (S1) 4 Good Abduction 4 Good Adduction 4 Good External Rotation 4- Good- Internal Rotation 4 Good Knee Strength Knee Manual Muscle Testing Right Flexion (S2) 4 Good Extension (L3) 4- Good- Comments pain with resistance Left Flexion (S2) 5 Normal Extension (L3) 5 Normal Ankle/Foot Strength Ankle and Foot Manual Muscle Testing Right Dorsiflexion (L4) 4 Good Plantarflexion (S1) 4 Good Left Dorsiflexion (L4) 5 Normal Plantarflexion (S1) 5 Normal Toe Strength Toe Manual Muscle Testing Right Great Toe Extension 4 Good Left Great Toe Extension 5 Normal PT-OP-Q Treatments Start: 04/01/23 08:10 Freq: Status: Active Protocol: Document 06/04/23 11:17 [facility] (Rec: 06/04/23 12:10 [facility] [id number]) Cardio Equipment Recumbent Stepper (Sci-Fit) Duration (Minutes) 10 Resistance 2>3 Seat Position 12 Other BUE/BLE: 50-55 RPMs, 1.44 miles miles (last min LE's only) Gym Equipment Cable Column (Body Solid) hamstring curl Details romero, unil Resistance 50, 25 Reps/Time 20 reps, 10 reps x2 Pallof Press Resistance L3 TB Reps/Time 10x Shuttle Recovery Unilateral Squats Details tactile cues for knee alignment lateral/neutral Resistance 37 (dark navy band) Shuttle Recovery Platform Stable Reps/Time 15x2 Bilateral Squats Details L2 TB around distal thighs cues for neutral LE alignment Resistance 75 (3 dark blue bands) Shuttle Recovery Platform Stable Reps/Time [id number] heel press for mid quad/glut fac Shuttle Balance red clips Comments fwd & side: WBOS & NBOS staggered stance fwd Therapeutic Exercises Supine Exercises IT band stretch Supine Exercise Name HEP HS stretch Supine Exercise Name HEP Sidelying Exercises hip abd Sidelying Exercise Name HEP Sitting Exercises chair squats Equipment Used mirror Reps/Minutes 10x2 Comments cues for neutral LE alignment Standing Exercises BOSU lunge Equipment Used mirror visual feedback Reps/Minutes 10x ea resisted walking Standing Exercise Name side, fwd,bck Equipment Used L3 TB lower thighs Reps/Minutes 20 ft ea Manual Therapy Treatment Taping right knee Body Location anterior Treatment Focus edema reduction Type of Tape Kinesio Tape Skin Inspection intact Comments 2 fan strips crossing PT-OP-R Modalities Start: 04/01/23 08:10 Freq: Status: Active Protocol: Document 06/04/23 11:17 [facility] (Rec: 06/04/23 12:10 [facility] [id number]) Electric Stimulation Electric Stimulation RIGHT KNEE Body Location Anterior/medial/lateral R knee Intensity 43 Target/Sweep Sweep Patient Position Hooklying Combined With Heat/Cold Cold Pack PT-OP-T Assessment and Plan Start: 04/01/23 08:10 Freq: Status: Active Protocol: Document 06/04/23 11:17 [facility] (Rec: 06/04/23 12:10 [facility] [id number]) Physical Therapy Assessment Impairments Impairments Activity Tolerance,Gait,Pain, Posture Goals radicular symptoms right LE Jail Goal (LTG) eliminate right LE radicular symptoms LTG Duration 07/01/23 postural dysfunction Impairment severe lateral shift and forward bent posture Jail Goal (LTG) Patient to demonstrate minimal postural dysfunction sitting and standing 06/01/23: good goal progress LTG Duration 07/01/23 antalgic gait Short Term Goal (STG) Patient able to ambulate with minimal to no limp with use of appropriate assistive device on level surfaces 06/01/23: good goal progress, no device. significant genu valgus right LE STG Duration goal met Jail Goal (LTG) Patient will be able to ambulate without assistive device and with minimal to no limp on all surfaces including stairs LTG Duration 07/01/23 Oswestry disability index score Impairment 50% Short Term Goal (STG) Improved Oswestry score to no greater than 35% as measure of improved spinal function and activity tolerance 06/01/23: goal progress, dec to 42% STG Duration 05/21/23 Advertising Internship Goal (LTG) Improve Oswestry score to no greater than 20% as measure of improved spinal function and activity tolerance. LTG Duration 07/01/23 Lower extremity functional scale Impairment 35% Short Term Goal (STG) Improve LEFS score to at least 50% as measure of improved right knee function and activity tolerance 06/03/23: goal [id number]% STG Duration 05/21/23 Jail Goal (LTG) Improve LEFS to at least 75% as measure of improved right knee function and activity tolerance LTG Duration 07/01/23 Progress Towards Goals Progress Towards Goals Progressing Toward Goals Assessment Summary Assessment Steady progress with dec pain and improving strength. Difficulty correcting LE alignment with ex; mod genu valgus Physical Therapy Plan Frequency and Duration Frequency of Treatment 2x/Week Duration of treatment (weeks) 12 Plan of Care Start Date 04/01/23 Plan of Care End Date 07/01/23 Therapeutic Interventions Therapeutic Interventions Home Exercise Program,Manual Therapy,Neuromuscular Re- education,Patient/Caregiver Education,Self-Care/Home Management,Soft Tissue Mobilization,Taping, Therapeutic Activities, Therapeutic Exercises Modalities Cold Pack/Ice Massage,Electric Stimulation,Hot Packs, Infrared Therapy,Traction- Mechanical Next Visit Focus/Plan Next Note Type Treatment Note Next Visit Plan Continue LE and core strengthening and stab, use mirror for visual feedback knee alignment
--- NOTE | 2023-06-08 13:45 | PT.OTN ---
Current Diagnoses Unilateral primary osteoarthritis, right knee (06/08/23) Pain in right knee (06/08/23) Other intervertebral disc displacement, lumbosacral region (06/08/23) Difficulty in walking, not elsewhere classified (06/08/23) Physical Therapy Treatment Note PT-OP-A Visit Information Start: 04/01/23 08:10 Freq: Status: Active Protocol: Document 06/08/23 12:59 SAK (Rec: 06/08/23 13:45 [facility] [id number]) Out-Patient Physical Therapy Visit Information Visit Information Visit Type Treatment Note Visit Start Time 13:03 Visit Stop Time 13:00 Visit Number 12 Evaluation Information Evaluation Date 04/01/23 PT-OP-B Current Condition Start: 04/01/23 08:10 Freq: Status: Active Protocol: Document 06/08/23 12:59 SAK (Rec: 06/08/23 13:45 [facility] [id number]) Current Condition History of Current Condition Onset Date January 30 Current Complaints right knee pain, LBP History of Current Condition Works at a [employer], was on a ladder working on trailer and fell twisting his knee and hitting his knee on boat stand . Also injured his back when he landed on one of the boat stands during a fall. Reports his knee was very swollen. x-rays June 2022 showed arthrits in right knee. Had injection in right knee 02/09/23. Has used ice and heat, rubs his knee. Is off work at this time. Pain in back increases with lifting and bending over. Decreases a little with use of ice and rubbing. Walks for exercise but pain increases with walking. Also reports stage 4 prostate cancer; has Lupron injections every 2 months and taking Expandia medication orally. Sees credit director and is taking cardiac medications . Uncertain extent of cancer spread. REports right knee is now prone to twisting. Prior Treatments and Tests injection right knee Treatment Goals Patient/Caregiver Goals decrease pain, improve activity tolerance. PT-OP-C Subjective Start: 04/01/23 08:10 Freq: Status: Active Protocol: Document 06/08/23 12:59 SAK (Rec: 06/08/23 13:45 [facility] [id number]) OP-PT Subjective Patient Comments Patient Comments A little sore. just took tape off knee a little while ago. Patient Reported Progress Improving PT-OP-F Manual Assessment Start: 04/01/23 08:10 Freq: Status: Active Protocol: Document 04/01/23 08:12 SAK (Rec: 04/05/23 08:57 [facility] [id number]) Manual Assessments Soft Tissue Assessment Soft Tissue Mobility Assessment decrease soft tissue mobility lumbar paraspinals with tenderness to palpation PT-OP-G Mobility & Gait Start: 04/01/23 08:10 Freq: Status: Active Protocol: Document 04/01/23 08:12 SAK (Rec: 04/05/23 08:57 [facility] [id number]) OP Gait Assessment Gait Gait Assistance Required: Independent Assistive Devices Assistive Device None Gait Deviations General Gait Pattern Antalgic,Flexed Trunk,Lateral Trunk Lean Factors Limiting Gait Function Factors Limiting Gait Function Decreased Activity Tolerance, Pain PT-OP-H Neuro Start: 04/01/23 08:10 Freq: Status: Active Protocol: Document 04/01/23 08:12 SAK (Rec: 04/01/23 08:57 [facility] [id number]) Sensation Evaluation Gross Sensation Gross Sensation Right LE Impaired Sensation Description Tingling PT-OP-J Posture/Palpation/Skin Start: 04/01/23 08:10 Freq: Status: Active Protocol: Document 04/01/23 08:12 SAK (Rec: 04/01/23 08:57 [facility] [id number]) Posture Evaluation Position Standing Head/C-Spine Posture C-Spine Flattened T-Spine Posture Increased Kyphosis L-Spine Posture Decreased Lordosis Knee Posture (R) Genu Varus Palpation Assessment Location lumbar spine Palpation Location L3-L5 Palpation Findings Muscle Guarding,Tenderness right knee Palpation Location posterior Palpation Findings Edema,Tenderness Skin Assessment Edema Assessment right knee Edema Appearance Taut Subjective Edema Description Pain PT-OP-K Range of Motion Start: 04/01/23 08:10 Freq: Status: Active Protocol: Document 04/01/23 08:12 SAK (Rec: 04/01/23 08:57 [facility] [id number]) Lumbar Spine Range of Motion Lumbar Spine Active Testing Position Standing Flexion 25 Extension 0 Rotation Left 15 Rotation Right 10 Lateral Flexion Left 25 Lateral Flexion Right 20 ROM Limitations Pain Hip Goniometric Range of Motion Hip Right Flexion w/Knee Flexed 90 Straight Leg Raise 30 Extension 0 Abduction 20 Internal Rotation 0 External Rotation 15 left Hip ROM WFL No Flexion w/Knee Flexed 85 Straight Leg Raise 25 Extension 0 Abduction 25 Internal Rotation 10 External Rotation 35 Hip ROM Limitations Hip ROM Limitations Pain Knee Goniometric Range of Motion Knee Right Knee ROM WFL No Flexion Active (degrees) 95 Extension Active (degrees) 22 Left Knee ROM WFL Yes Knee ROM Limitations Knee ROM Limitations Pain,Swelling Ankle and Foot Goniometric Range of Motion Ankle and Foot romero Ankle/Foot ROM WFL Yes PT-OP-L Special Tests Start: 04/01/23 08:10 Freq: Status: Active Protocol: Document 04/01/23 08:12 [facility] (Rec: 04/05/23 08:55 [facility] [id number]) Special Tests Knee Special Tests Apley's Compression Test Results + Valgus- 0 Degrees Test Results - Varus- 0 Degrees Test Results +R Elva Test Test Results +R Anterior Draw Test Results - PT-OP-M Strength Start: 04/01/23 08:10 Freq: Status: Active Protocol: Document 04/01/23 08:12 [facility] (Rec: 04/05/23 08:55 [facility] [id number]) Hip Strength Hip Manual Muscle Testing Right Flexion (L2) 3- Fair- Extension (S1) 3- Fair- Abduction 3- Fair- Adduction 3 Fair External Rotation 3 Fair Internal Rotation 3+ Fair+ Left Flexion (L2) 4 Good Extension (S1) 4 Good Abduction 4 Good Adduction 4 Good External Rotation 4- Good- Internal Rotation 4 Good Knee Strength Knee Manual Muscle Testing Right Flexion (S2) 4 Good Extension (L3) 4- Good- Comments pain with resistance Left Flexion (S2) 5 Normal Extension (L3) 5 Normal Ankle/Foot Strength Ankle and Foot Manual Muscle Testing Right Dorsiflexion (L4) 4 Good Plantarflexion (S1) 4 Good Left Dorsiflexion (L4) 5 Normal Plantarflexion (S1) 5 Normal Toe Strength Toe Manual Muscle Testing Right Great Toe Extension 4 Good Left Great Toe Extension 5 Normal PT-OP-Q Treatments Start: 04/01/23 08:10 Freq: Status: Active Protocol: Document 06/08/23 12:59 [facility] (Rec: 06/08/23 13:45 [facility] [id number]) Cardio Equipment Recumbent Stepper (Sci-Fit) Duration (Minutes) 10 Resistance 2>3 Seat Position 12 Other BUE/BLE: 50-55 RPMs, miles miles (last min LE's only) Gym Equipment Cable Column (Body Solid) hamstring curl Details romero, unil Resistance 60, 25 Reps/Time 20 reps, 10 reps x2 Shuttle Recovery Unilateral Squats Details tactile cues for knee alignment lateral/neutral Resistance 37 (dark navy band) Shuttle Recovery Platform Stable Reps/Time 15x2 Therapeutic Exercises Sitting Exercises chair squats Equipment Used mirror Reps/Minutes 10x3 Comments cues for neutral LE alignment Standing Exercises BOSU lunge Equipment Used mirror visual feedback Reps/Minutes 10x ea resisted walking Standing Exercise Name side, fwd,bck Equipment Used L3 TB lower thighs Reps/Minutes 20 ft ea Manual Therapy Treatment Taping right knee Body Location anterior Treatment Focus edema reduction Type of Tape Kinesio Tape Skin Inspection intact Comments 2 fan strips crossing PT-OP-R Modalities Start: 04/01/23 08:10 Freq: Status: Active Protocol: Document 06/08/23 12:59 [facility] (Rec: 06/08/23 13:45 [facility] [id number]) Electric Stimulation Electric Stimulation RIGHT KNEE Body Location Anterior/medial/lateral R knee Intensity 43 Target/Sweep Sweep Patient Position Hooklying Combined With Heat/Cold Cold Pack PT-OP-T Assessment and Plan Start: 04/01/23 08:10 Freq: Status: Active Protocol: Document 06/08/23 12:59 [facility] (Rec: 06/08/23 13:45 [facility] [id number]) Physical Therapy Assessment Impairments Impairments Activity Tolerance,Gait,Pain, Posture Goals radicular symptoms right LE Senior Software Tester Goal (LTG) eliminate right LE radicular symptoms LTG Duration 07/01/23 postural dysfunction Impairment severe lateral shift and forward bent posture Retirement Goal (LTG) Patient to demonstrate minimal postural dysfunction sitting and standing 06/01/23: good goal progress LTG Duration 07/01/23 antalgic gait Short Term Goal (STG) Patient able to ambulate with minimal to no limp with use of appropriate assistive device on level surfaces 06/01/23: good goal progress, no device. significant genu valgus right LE STG Duration goal met Retirement Goal (LTG) Patient will be able to ambulate without assistive device and with minimal to no limp on all surfaces including stairs LTG Duration 07/01/23 Oswestry disability index score Impairment 50% Short Term Goal (STG) Improved Oswestry score to no greater than 35% as measure of improved spinal function and activity tolerance 06/01/23: goal progress, dec to 42% STG Duration 05/21/23 Retirement Goal (LTG) Improve Oswestry score to no greater than 20% as measure of improved spinal function and activity tolerance. LTG Duration 07/01/23 Lower extremity functional scale Impairment 35% Short Term Goal (STG) Improve LEFS score to at least 50% as measure of improved right knee function and activity tolerance 06/03/23: goal [id number]% STG Duration 05/21/23 Senior Software Tester Goal (LTG) Improve LEFS to at least 75% as measure of improved right knee function and activity tolerance LTG Duration 07/01/23 Progress Towards Goals Progress Towards Goals Progressing Toward Goals Assessment Summary Assessment Increased resistance with seated hamstring curl, improved LE alignment with chair squats Physical Therapy Plan Frequency and Duration Frequency of Treatment 2x/Week Duration of treatment (weeks) 12 Plan of Care Start Date 04/01/23 Plan of Care End Date 07/01/23 Therapeutic Interventions Therapeutic Interventions Home Exercise Program,Manual Therapy,Neuromuscular Re- education,Patient/Caregiver Education,Self-Care/Home Management,Soft Tissue Mobilization,Taping, Therapeutic Activities, Therapeutic Exercises Modalities Cold Pack/Ice Massage,Electric Stimulation,Hot Packs, Infrared Therapy,Traction- Mechanical Next Visit Focus/Plan Next Note Type Treatment Note Next Visit Plan Continue LE and core strengthening and stab, use mirror for visual feedback knee alignment
--- NOTE | 2023-06-11 12:07 | PT.OTN ---
Current Diagnoses Unilateral primary osteoarthritis, right knee (06/11/23) Pain in right knee (06/11/23) Other intervertebral disc displacement, lumbosacral region (06/11/23) Difficulty in walking, not elsewhere classified (06/11/23) Physical Therapy Treatment Note PT-OP-A Visit Information Start: 04/01/23 08:10 Freq: Status: Active Protocol: Document 06/11/23 11:23 SAK (Rec: 06/11/23 12:07 [facility] [id number]) Out-Patient Physical Therapy Visit Information Visit Information Visit Type Treatment Note Visit Start Time 11:20 Visit Stop Time 12:15 Visit Number 13 PT-OP-B Current Condition Start: 04/01/23 08:10 Freq: Status: Active Protocol: Document 06/08/23 12:59 SAK (Rec: 06/08/23 13:45 [facility] [id number]) Current Condition History of Current Condition Onset Date January 30 Current Complaints right knee pain, LBP History of Current Condition Works at a [employer], was on a ladder working on trailer and fell twisting his knee and hitting his knee on boat stand . Also injured his back when he landed on one of the boat stands during a fall. Reports his knee was very swollen. x-rays June 2022 showed arthrits in right knee. Had injection in right knee 02/09/23. Has used ice and heat, rubs his knee. Is off work at this time. Pain in back increases with lifting and bending over. Decreases a little with use of ice and rubbing. Walks for exercise but pain increases with walking. Also reports stage 4 prostate cancer; has Lupron injections every 2 months and taking Expandia medication orally. Sees group program manager and is taking cardiac medications . Uncertain extent of cancer spread. REports right knee is now prone to twisting. Prior Treatments and Tests injection right knee Treatment Goals Patient/Caregiver Goals decrease pain, improve activity tolerance. PT-OP-C Subjective Start: 04/01/23 08:10 Freq: Status: Active Protocol: Document 06/08/23 12:59 SAK (Rec: 06/08/23 13:45 [facility] [id number]) OP-PT Subjective Patient Comments Patient Comments A little sore. just took tape off knee a little while ago. Patient Reported Progress Improving PT-OP-F Manual Assessment Start: 04/01/23 08:10 Freq: Status: Active Protocol: Document 04/01/23 08:12 SAK (Rec: 04/05/23 08:57 SAK [id number]) Manual Assessments Soft Tissue Assessment Soft Tissue Mobility Assessment decrease soft tissue mobility lumbar paraspinals with tenderness to palpation PT-OP-G Mobility & Gait Start: 04/01/23 08:10 Freq: Status: Active Protocol: Document 04/01/23 08:12 SAK (Rec: 04/05/23 08:57 SAK [id number]) OP Gait Assessment Gait Gait Assistance Required: Independent Assistive Devices Assistive Device None Gait Deviations General Gait Pattern Antalgic,Flexed Trunk,Lateral Trunk Lean Factors Limiting Gait Function Factors Limiting Gait Function Decreased Activity Tolerance, Pain PT-OP-H Neuro Start: 04/01/23 08:10 Freq: Status: Active Protocol: Document 04/01/23 08:12 SAK (Rec: 04/01/23 08:57 SAK [id number]) Sensation Evaluation Gross Sensation Gross Sensation Right LE Impaired Sensation Description Tingling PT-OP-J Posture/Palpation/Skin Start: 04/01/23 08:10 Freq: Status: Active Protocol: Document 04/01/23 08:12 SAK (Rec: 04/01/23 08:57 [facility] [id number]) Posture Evaluation Position Standing Head/C-Spine Posture C-Spine Flattened T-Spine Posture Increased Kyphosis L-Spine Posture Decreased Lordosis Knee Posture (R) Genu Varus Palpation Assessment Location lumbar spine Palpation Location L3-L5 Palpation Findings Muscle Guarding,Tenderness right knee Palpation Location posterior Palpation Findings Edema,Tenderness Skin Assessment Edema Assessment right knee Edema Appearance Taut Subjective Edema Description Pain PT-OP-K Range of Motion Start: 04/01/23 08:10 Freq: Status: Active Protocol: Document 04/01/23 08:12 SAK (Rec: 04/01/23 08:57 [facility] [id number]) Lumbar Spine Range of Motion Lumbar Spine Active Testing Position Standing Flexion 25 Extension 0 Rotation Left 15 Rotation Right 10 Lateral Flexion Left 25 Lateral Flexion Right 20 ROM Limitations Pain Hip Goniometric Range of Motion Hip Right Flexion w/Knee Flexed 90 Straight Leg Raise 30 Extension 0 Abduction 20 Internal Rotation 0 External Rotation 15 left Hip ROM WFL No Flexion w/Knee Flexed 85 Straight Leg Raise 25 Extension 0 Abduction 25 Internal Rotation 10 External Rotation 35 Hip ROM Limitations Hip ROM Limitations Pain Knee Goniometric Range of Motion Knee Right Knee ROM WFL No Flexion Active (degrees) 95 Extension Active (degrees) 22 Left Knee ROM WFL Yes Knee ROM Limitations Knee ROM Limitations Pain,Swelling Ankle and Foot Goniometric Range of Motion Ankle and Foot romero Ankle/Foot ROM WFL Yes PT-OP-L Special Tests Start: 04/01/23 08:10 Freq: Status: Active Protocol: Document 04/01/23 08:12 [facility] (Rec: 04/05/23 08:55 [facility] [id number]) Special Tests Knee Special Tests Apley's Compression Test Results + Valgus- 0 Degrees Test Results - Varus- 0 Degrees Test Results +R Elva Test Test Results +R Anterior Draw Test Results - PT-OP-M Strength Start: 04/01/23 08:10 Freq: Status: Active Protocol: Document 04/01/23 08:12 [facility] (Rec: 04/05/23 08:55 [facility] [id number]) Hip Strength Hip Manual Muscle Testing Right Flexion (L2) 3- Fair- Extension (S1) 3- Fair- Abduction 3- Fair- Adduction 3 Fair External Rotation 3 Fair Internal Rotation 3+ Fair+ Left Flexion (L2) 4 Good Extension (S1) 4 Good Abduction 4 Good Adduction 4 Good External Rotation 4- Good- Internal Rotation 4 Good Knee Strength Knee Manual Muscle Testing Right Flexion (S2) 4 Good Extension (L3) 4- Good- Comments pain with resistance Left Flexion (S2) 5 Normal Extension (L3) 5 Normal Ankle/Foot Strength Ankle and Foot Manual Muscle Testing Right Dorsiflexion (L4) 4 Good Plantarflexion (S1) 4 Good Left Dorsiflexion (L4) 5 Normal Plantarflexion (S1) 5 Normal Toe Strength Toe Manual Muscle Testing Right Great Toe Extension 4 Good Left Great Toe Extension 5 Normal PT-OP-Q Treatments Start: 04/01/23 08:10 Freq: Status: Active Protocol: Document 06/11/23 11:23 [facility] (Rec: 06/11/23 12:07 [facility] [id number]) Therapeutic Exercises Sitting Exercises HS curl Resistance L2 TB Reps/Minutes 10x2 chair squats Resistance L2 TB thighs Equipment Used mirror Reps/Minutes 10x3 Comments cues for neutral LE alignment LAQ Equipment Used L2 TB Reps/Minutes 10x2 Comments mirror for visual feedback Standing Exercises BOSU lunge Equipment Used mirror visual feedback Reps/Minutes 10x ea resisted walking Standing Exercise Name side, fwd,bck Equipment Used L3 TB lower thighs Reps/Minutes 20 ft ea Manual Therapy Treatment Taping right knee Body Location anterior Treatment Focus edema reduction Type of Tape Kinesio Tape Skin Inspection intact Comments 2 fan strips crossing PT-OP-R Modalities Start: 04/01/23 08:10 Freq: Status: Active Protocol: Document 06/11/23 11:23 [facility] (Rec: 06/11/23 12:07 [facility] [id number]) Electric Stimulation Electric Stimulation RIGHT KNEE Body Location Anterior/medial/lateral R knee Intensity 43 Target/Sweep Sweep Patient Position Hooklying Combined With Heat/Cold Cold Pack PT-OP-T Assessment and Plan Start: 04/01/23 08:10 Freq: Status: Active Protocol: Document 06/11/23 11:23 [facility] (Rec: 06/11/23 12:07 [facility] [id number]) Physical Therapy Assessment Goals radicular symptoms right LE Usp Goal (LTG) eliminate right LE radicular symptoms LTG Duration 07/01/23 postural dysfunction Impairment severe lateral shift and forward bent posture Usp Goal (LTG) Patient to demonstrate minimal postural dysfunction sitting and standing 06/01/23: good goal progress LTG Duration 07/01/23 antalgic gait Short Term Goal (STG) Patient able to ambulate with minimal to no limp with use of appropriate assistive device on level surfaces 06/01/23: good goal progress, no device. significant genu valgus right LE STG Duration goal met Usp Goal (LTG) Patient will be able to ambulate without assistive device and with minimal to no limp on all surfaces including stairs LTG Duration 07/01/23 Oswestry disability index score Impairment 50% Short Term Goal (STG) Improved Oswestry score to no greater than 35% as measure of improved spinal function and activity tolerance 06/01/23: goal progress, dec to 42% STG Duration 05/21/23 Usp Goal (LTG) Improve Oswestry score to no greater than 20% as measure of improved spinal function and activity tolerance. LTG Duration 07/01/23 Lower extremity functional scale Impairment 35% Short Term Goal (STG) Improve LEFS score to at least 50% as measure of improved right knee function and activity tolerance 06/03/23: goal [id number]% STG Duration 05/21/23 Usp Goal (LTG) Improve LEFS to at least 75% as measure of improved right knee function and activity tolerance LTG Duration 07/01/23 Progress Towards Goals Progress Towards Goals Progressing Toward Goals Assessment Summary Assessment Improving awareness of knee alignment and ability to partially correct. Increased reps with squats with band and mirror and hamstring curl. Physical Therapy Plan Frequency and Duration Frequency of Treatment 2x/Week Duration of treatment (weeks) 12 Plan of Care Start Date 04/01/23 Plan of Care End Date 07/01/23 Therapeutic Interventions Therapeutic Interventions Home Exercise Program,Manual Therapy,Neuromuscular Re- education,Patient/Caregiver Education,Self-Care/Home Management,Soft Tissue Mobilization,Taping, Therapeutic Activities, Therapeutic Exercises Modalities Cold Pack/Ice Massage,Electric Stimulation,Hot Packs, Infrared Therapy,Traction- Mechanical Next Visit Focus/Plan Next Note Type Treatment Note Next Visit Plan Continue LE and core strengthening and stab, use mirror for visual feedback knee alignment. Add clam and reverse clamshell, side lunge glut med activator.
--- NOTE | 2023-06-15 12:10 | PT.OTN ---
Current Diagnoses Unilateral primary osteoarthritis, right knee (06/15/23) Pain in right knee (06/15/23) Other intervertebral disc displacement, lumbosacral region (06/15/23) Difficulty in walking, not elsewhere classified (06/15/23) Physical Therapy Treatment Note PT-OP-A Visit Information Start: 04/01/23 08:10 Freq: Status: Active Protocol: Document 06/15/23 11:20 SAK (Rec: 06/15/23 12:10 [facility] [id number]) Out-Patient Physical Therapy Visit Information Visit Information Visit Type Treatment Note Visit Start Time 11:20 Visit Stop Time 12:15 Visit Number 13 Evaluation Information Evaluation Date 04/01/23 PT-OP-B Current Condition Start: 04/01/23 08:10 Freq: Status: Active Protocol: Document 06/15/23 11:20 SAK (Rec: 06/15/23 12:10 [facility] [id number]) Current Condition History of Current Condition Onset Date January 30 Current Complaints right knee pain, LBP History of Current Condition Works at a [employer], was on a ladder working on trailer and fell twisting his knee and hitting his knee on boat stand . Also injured his back when he landed on one of the boat stands during a fall. Reports his knee was very swollen. x-rays June 2022 showed arthrits in right knee. Had injection in right knee 02/09/23. Has used ice and heat, rubs his knee. Is off work at this time. Pain in back increases with lifting and bending over. Decreases a little with use of ice and rubbing. Walks for exercise but pain increases with walking. Also reports stage 4 prostate cancer; has Lupron injections every 2 months and taking Expandia medication orally. 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 Uncertain extent of cancer spread. REports right knee is now prone to twisting. Prior Treatments and Tests injection right knee Treatment Goals Patient/Caregiver Goals decrease pain, improve activity tolerance. PT-OP-C Subjective Start: 04/01/23 08:10 Freq: Status: Active Protocol: Document 06/15/23 11:20 SAK (Rec: 06/15/23 12:10 [facility] [id number]) OP-PT Subjective Patient Comments Patient Comments No new c/o. Rode his bike a little over the weekend. Compliant to HEP PT-OP-F Manual Assessment Start: 04/01/23 08:10 Freq: Status: Active Protocol: Document 04/01/23 08:12 SAK (Rec: 04/05/23 08:57 [facility] [id number]) Manual Assessments Soft Tissue Assessment Soft Tissue Mobility Assessment decrease soft tissue mobility lumbar paraspinals with tenderness to palpation PT-OP-G Mobility & Gait Start: 04/01/23 08:10 Freq: Status: Active Protocol: Document 04/01/23 08:12 SAK (Rec: 04/05/23 08:57 [facility] [id number]) OP Gait Assessment Gait Gait Assistance Required: Independent Assistive Devices Assistive Device None Gait Deviations General Gait Pattern Antalgic,Flexed Trunk,Lateral Trunk Lean Factors Limiting Gait Function Factors Limiting Gait Function Decreased Activity Tolerance, Pain PT-OP-H Neuro Start: 04/01/23 08:10 Freq: Status: Active Protocol: Document 04/01/23 08:12 SAK (Rec: 04/01/23 08:57 [facility] [id number]) Sensation Evaluation Gross Sensation Gross Sensation Right LE Impaired Sensation Description Tingling PT-OP-J Posture/Palpation/Skin Start: 04/01/23 08:10 Freq: Status: Active Protocol: Document 04/01/23 08:12 SAK (Rec: 04/01/23 08:57 [facility] [id number]) Posture Evaluation Position Standing Head/C-Spine Posture C-Spine Flattened T-Spine Posture Increased Kyphosis L-Spine Posture Decreased Lordosis Knee Posture (R) Genu Varus Palpation Assessment Location lumbar spine Palpation Location L3-L5 Palpation Findings Muscle Guarding,Tenderness right knee Palpation Location posterior Palpation Findings Edema,Tenderness Skin Assessment Edema Assessment right knee Edema Appearance Taut Subjective Edema Description Pain PT-OP-K Range of Motion Start: 04/01/23 08:10 Freq: Status: Active Protocol: Document 04/01/23 08:12 SAK (Rec: 04/01/23 08:57 [facility] [id number]) Lumbar Spine Range of Motion Lumbar Spine Active Testing Position Standing Flexion 25 Extension 0 Rotation Left 15 Rotation Right 10 Lateral Flexion Left 25 Lateral Flexion Right 20 ROM Limitations Pain Hip Goniometric Range of Motion Hip Right Flexion w/Knee Flexed 90 Straight Leg Raise 30 Extension 0 Abduction 20 Internal Rotation 0 External Rotation 15 left Hip ROM WFL No Flexion w/Knee Flexed 85 Straight Leg Raise 25 Extension 0 Abduction 25 Internal Rotation 10 External Rotation 35 Hip ROM Limitations Hip ROM Limitations Pain Knee Goniometric Range of Motion Knee Right Knee ROM WFL No Flexion Active (degrees) 95 Extension Active (degrees) 22 Left Knee ROM WFL Yes Knee ROM Limitations Knee ROM Limitations Pain,Swelling Ankle and Foot Goniometric Range of Motion Ankle and Foot romero Ankle/Foot ROM WFL Yes PT-OP-L Special Tests Start: 04/01/23 08:10 Freq: Status: Active Protocol: Document 04/01/23 08:12 [facility] (Rec: 04/05/23 08:55 [facility] [id number]) Special Tests Knee Special Tests Apley's Compression Test Results + Valgus- 0 Degrees Test Results - Varus- 0 Degrees Test Results +R Elva Test Test Results +R Anterior Draw Test Results - PT-OP-M Strength Start: 04/01/23 08:10 Freq: Status: Active Protocol: Document 04/01/23 08:12 [facility] (Rec: 04/05/23 08:55 [facility] [id number]) Hip Strength Hip Manual Muscle Testing Right Flexion (L2) 3- Fair- Extension (S1) 3- Fair- Abduction 3- Fair- Adduction 3 Fair External Rotation 3 Fair Internal Rotation 3+ Fair+ Left Flexion (L2) 4 Good Extension (S1) 4 Good Abduction 4 Good Adduction 4 Good External Rotation 4- Good- Internal Rotation 4 Good Knee Strength Knee Manual Muscle Testing Right Flexion (S2) 4 Good Extension (L3) 4- Good- Comments pain with resistance Left Flexion (S2) 5 Normal Extension (L3) 5 Normal Ankle/Foot Strength Ankle and Foot Manual Muscle Testing Right Dorsiflexion (L4) 4 Good Plantarflexion (S1) 4 Good Left Dorsiflexion (L4) 5 Normal Plantarflexion (S1) 5 Normal Toe Strength Toe Manual Muscle Testing Right Great Toe Extension 4 Good Left Great Toe Extension 5 Normal PT-OP-Q Treatments Start: 04/01/23 08:10 Freq: Status: Active Protocol: Document 06/15/23 11:20 [facility] (Rec: 06/15/23 12:10 [facility] [id number]) Cardio Equipment Recumbent Stepper (Sci-Fit) Duration (Minutes) 10 Resistance 2>3 Seat Position 12 Other BUE/BLE: 50-55 RPMs, miles miles (last min LE's only) Gym Equipment Cable Column (Body Solid) hamstring curl Details romero, unil Resistance 60, 30 Reps/Time 20 reps, 10 reps x2 Shuttle Recovery Unilateral Squats Details tactile cues for knee alignment lateral/neutral Resistance 37 (dark navy band) Shuttle Recovery Platform Stable Reps/Time 15x2 Therapeutic Exercises Sidelying Exercises clamshell Reps/Minutes 10x Sitting Exercises HS curl Resistance L2 TB Reps/Minutes 10x2 chair squats Resistance L2 TB thighs Equipment Used mirror Reps/Minutes 10x3 Comments cues for neutral LE alignment LAQ Equipment Used L2 TB Reps/Minutes 10x2 Comments mirror for visual feedback Standing Exercises lateral lunge Equipment Used mirror Reps/Minutes 10x split squat Equipment Used mirror Reps/Minutes 10x ea resisted walking Standing Exercise Name side, fwd,bck Resistance mirror Equipment Used L3 TB lower thighs Reps/Minutes 20 ft ea Manual Therapy Treatment Taping right knee Body Location anterior Treatment Focus edema reduction Type of Tape Kinesio Tape Skin Inspection intact Comments 2 fan strips crossing PT-OP-R Modalities Start: 04/01/23 08:10 Freq: Status: Active Protocol: Document 06/15/23 11:20 [facility] (Rec: 06/15/23 12:10 [facility] [id number]) Electric Stimulation Electric Stimulation RIGHT KNEE Body Location Anterior/medial/lateral R knee Intensity 43 Target/Sweep Sweep Patient Position Hooklying Combined With Heat/Cold Cold Pack PT-OP-T Assessment and Plan Start: 04/01/23 08:10 Freq: Status: Active Protocol: Document 06/15/23 11:20 [facility] (Rec: 06/15/23 12:10 [facility] [id number]) Physical Therapy Assessment Goals radicular symptoms right LE Fdc Goal (LTG) eliminate right LE radicular symptoms LTG Duration 07/01/23 postural dysfunction Impairment severe lateral shift and forward bent posture Fdc Goal (LTG) Patient to demonstrate minimal postural dysfunction sitting and standing 06/01/23: good goal progress LTG Duration 07/01/23 antalgic gait Short Term Goal (STG) Patient able to ambulate with minimal to no limp with use of appropriate assistive device on level surfaces 06/01/23: good goal progress, no device. significant genu valgus right LE STG Duration goal met [employer] Goal (LTG) Patient will be able to ambulate without assistive device and with minimal to no limp on all surfaces including stairs LTG Duration 07/01/23 Oswestry disability index score Impairment 50% Short Term Goal (STG) Improved Oswestry score to no greater than 35% as measure of improved spinal function and activity tolerance 06/01/23: goal progress, dec to 42% STG Duration 05/21/23 Fdc Goal (LTG) Improve Oswestry score to no greater than 20% as measure of improved spinal function and activity tolerance. LTG Duration 07/01/23 Lower extremity functional scale Impairment 35% Short Term Goal (STG) Improve LEFS score to at least 50% as measure of improved right knee function and activity tolerance 06/03/23: goal [id number]% STG Duration 05/21/23 Fdc Goal (LTG) Improve LEFS to at least 75% as measure of improved right knee function and activity tolerance LTG Duration 07/01/23 Progress Towards Goals Progress Towards Goals Progressing Toward Goals Assessment Summary Assessment Able to add split squat and lateral lunge; use of mirror for attention to knee alignment; added to HEP. Physical Therapy Plan Frequency and Duration Frequency of Treatment 2x/Week Duration of treatment (weeks) 12 Plan of Care Start Date 04/01/23 Plan of Care End Date 07/01/23 Therapeutic Interventions Therapeutic Interventions Home Exercise Program,Manual Therapy,Neuromuscular Re- education,Patient/Caregiver Education,Self-Care/Home Management,Soft Tissue Mobilization,Taping, Therapeutic Activities, Therapeutic Exercises Modalities Cold Pack/Ice Massage,Electric Stimulation,Hot Packs, Infrared Therapy,Traction- Mechanical Next Visit Focus/Plan Next Note Type Treatment Note Next Visit Plan Continue core and LE strengtheing and stab. Anticipate discharge in 2-3 visits.
--- NOTE | 2023-06-17 12:09 | PT.OTN ---
Current Diagnoses Unilateral primary osteoarthritis, right knee (06/17/23) Pain in right knee (06/17/23) Other intervertebral disc displacement, lumbosacral region (06/17/23) Difficulty in walking, not elsewhere classified (06/17/23) Physical Therapy Treatment Note PT-OP-A Visit Information Start: 04/01/23 08:10 Freq: Status: Active Protocol: Document 06/17/23 11:25 SAK (Rec: 06/17/23 12:09 [facility] [id number]) Out-Patient Physical Therapy Visit Information Visit Information Visit Type Treatment Note Visit Start Time 11:20 Visit Stop Time 12:15 Visit Number 14 Evaluation Information Evaluation Date 04/01/23 PT-OP-B Current Condition Start: 04/01/23 08:10 Freq: Status: Active Protocol: Document 06/17/23 11:25 SAK (Rec: 06/17/23 12:09 [facility] [id number]) Current Condition History of Current Condition Onset Date January 30 Current Complaints right knee pain, LBP History of Current Condition Works at a [employer], was on a ladder working on trailer and fell twisting his knee and hitting his knee on boat stand . Also injured his back when he landed on one of the boat stands during a fall. Reports his knee was very swollen. x-rays June 2022 showed arthrits in right knee. Had injection in right knee 02/09/23. Has used ice and heat, rubs his knee. Is off work at this time. Pain in back increases with lifting and bending over. Decreases a little with use of ice and rubbing. Walks for exercise but pain increases with walking. Also reports stage 4 prostate cancer; has Lupron injections every 2 months and taking Expandia medication orally. 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 Uncertain extent of cancer spread. REports right knee is now prone to twisting. Prior Treatments and Tests injection right knee Treatment Goals Patient/Caregiver Goals decrease pain, improve activity tolerance. PT-OP-C Subjective Start: 04/01/23 08:10 Freq: Status: Active Protocol: Document 06/15/23 11:20 SAK (Rec: 06/15/23 12:10 [facility] [id number]) OP-PT Subjective Patient Comments Patient Comments No new c/o. Rode his bike a little over the weekend. Compliant to HEP PT-OP-F Manual Assessment Start: 04/01/23 08:10 Freq: Status: Active Protocol: Document 04/01/23 08:12 SAK (Rec: 04/05/23 08:57 [facility] [id number]) Manual Assessments Soft Tissue Assessment Soft Tissue Mobility Assessment decrease soft tissue mobility lumbar paraspinals with tenderness to palpation PT-OP-G Mobility & Gait Start: 04/01/23 08:10 Freq: Status: Active Protocol: Document 04/01/23 08:12 SAK (Rec: 04/05/23 08:57 [facility] [id number]) OP Gait Assessment Gait Gait Assistance Required: Independent Assistive Devices Assistive Device None Gait Deviations General Gait Pattern Antalgic,Flexed Trunk,Lateral Trunk Lean Factors Limiting Gait Function Factors Limiting Gait Function Decreased Activity Tolerance, Pain PT-OP-H Neuro Start: 04/01/23 08:10 Freq: Status: Active Protocol: Document 04/01/23 08:12 SAK (Rec: 04/01/23 08:57 [facility] [id number]) Sensation Evaluation Gross Sensation Gross Sensation Right LE Impaired Sensation Description Tingling PT-OP-J Posture/Palpation/Skin Start: 04/01/23 08:10 Freq: Status: Active Protocol: Document 04/01/23 08:12 SAK (Rec: 04/01/23 08:57 [facility] [id number]) Posture Evaluation Position Standing Head/C-Spine Posture C-Spine Flattened T-Spine Posture Increased Kyphosis L-Spine Posture Decreased Lordosis Knee Posture (R) Genu Varus Palpation Assessment Location lumbar spine Palpation Location L3-L5 Palpation Findings Muscle Guarding,Tenderness right knee Palpation Location posterior Palpation Findings Edema,Tenderness Skin Assessment Edema Assessment right knee Edema Appearance Taut Subjective Edema Description Pain PT-OP-K Range of Motion Start: 04/01/23 08:10 Freq: Status: Active Protocol: Document 04/01/23 08:12 SAK (Rec: 04/01/23 08:57 [facility] [id number]) Lumbar Spine Range of Motion Lumbar Spine Active Testing Position Standing Flexion 25 Extension 0 Rotation Left 15 Rotation Right 10 Lateral Flexion Left 25 Lateral Flexion Right 20 ROM Limitations Pain Hip Goniometric Range of Motion Hip Right Flexion w/Knee Flexed 90 Straight Leg Raise 30 Extension 0 Abduction 20 Internal Rotation 0 External Rotation 15 left Hip ROM WFL No Flexion w/Knee Flexed 85 Straight Leg Raise 25 Extension 0 Abduction 25 Internal Rotation 10 External Rotation 35 Hip ROM Limitations Hip ROM Limitations Pain Knee Goniometric Range of Motion Knee Right Knee ROM WFL No Flexion Active (degrees) 95 Extension Active (degrees) 22 Left Knee ROM WFL Yes Knee ROM Limitations Knee ROM Limitations Pain,Swelling Ankle and Foot Goniometric Range of Motion Ankle and Foot romero Ankle/Foot ROM WFL Yes PT-OP-L Special Tests Start: 04/01/23 08:10 Freq: Status: Active Protocol: Document 04/01/23 08:12 [facility] (Rec: 04/05/23 08:55 [facility] [id number]) Special Tests Knee Special Tests Apley's Compression Test Results + Valgus- 0 Degrees Test Results - Varus- 0 Degrees Test Results +R Elva Test Test Results +R Anterior Draw Test Results - PT-OP-M Strength Start: 04/01/23 08:10 Freq: Status: Active Protocol: Document 04/01/23 08:12 [facility] (Rec: 04/05/23 08:55 [facility] [id number]) Hip Strength Hip Manual Muscle Testing Right Flexion (L2) 3- Fair- Extension (S1) 3- Fair- Abduction 3- Fair- Adduction 3 Fair External Rotation 3 Fair Internal Rotation 3+ Fair+ Left Flexion (L2) 4 Good Extension (S1) 4 Good Abduction 4 Good Adduction 4 Good External Rotation 4- Good- Internal Rotation 4 Good Knee Strength Knee Manual Muscle Testing Right Flexion (S2) 4 Good Extension (L3) 4- Good- Comments pain with resistance Left Flexion (S2) 5 Normal Extension (L3) 5 Normal Ankle/Foot Strength Ankle and Foot Manual Muscle Testing Right Dorsiflexion (L4) 4 Good Plantarflexion (S1) 4 Good Left Dorsiflexion (L4) 5 Normal Plantarflexion (S1) 5 Normal Toe Strength Toe Manual Muscle Testing Right Great Toe Extension 4 Good Left Great Toe Extension 5 Normal PT-OP-Q Treatments Start: 04/01/23 08:10 Freq: Status: Active Protocol: Document 06/17/23 11:25 [facility] (Rec: 06/17/23 12:09 [facility] [id number]) Cardio Equipment Recumbent Stepper (Sci-Fit) Duration (Minutes) 10 Resistance 2>3 Seat Position 12 Other BUE/BLE: 50-55 RPMs, miles miles (last min LE's only) Gym Equipment Cable Column (Body Solid) hamstring curl Details romero, unil Resistance 60, 30 Reps/Time 20 reps, 10 reps x2 Therapeutic Exercises Standing Exercises lateral lunge Equipment Used mirror Reps/Minutes 10x2 split squat Equipment Used mirror Reps/Minutes 10x ea resisted walking Standing Exercise Name side, fwd,bck Resistance mirror Equipment Used L3 TB lower thighs Reps/Minutes 20 ft ea Manual Therapy Treatment Taping right knee Body Location anterior Treatment Focus edema reduction Type of Tape Kinesio Tape Skin Inspection intact Comments 2 fan strips crossing Self-Care/Home Management Treatment Education Other Education instruction for self taping with KT tape PT-OP-R Modalities Start: 04/01/23 08:10 Freq: Status: Active Protocol: Document 06/17/23 11:25 SAK (Rec: 06/17/23 12:09 [facility] [id number]) Electric Stimulation Electric Stimulation RIGHT KNEE Body Location Anterior/medial/lateral R knee Intensity 43 Target/Sweep Sweep Patient Position Hooklying Combined With Heat/Cold Cold Pack PT-OP-T Assessment and Plan Start: 04/01/23 08:10 Freq: Status: Active Protocol: Document 06/17/23 11:25 SAK (Rec: 06/17/23 12:09 [facility] [id number]) Physical Therapy Assessment Goals radicular symptoms right LE Halfway Goal (LTG) eliminate right LE radicular symptoms LTG Duration 07/01/23 postural dysfunction Impairment severe lateral shift and forward bent posture Halfway Goal (LTG) Patient to demonstrate minimal postural dysfunction sitting and standing 06/01/23: good goal progress LTG Duration 07/01/23 antalgic gait Short Term Goal (STG) Patient able to ambulate with minimal to no limp with use of appropriate assistive device on level surfaces 06/01/23: good goal progress, no device. significant genu valgus right LE STG Duration goal met Halfway Goal (LTG) Patient will be able to ambulate without assistive device and with minimal to no limp on all surfaces including stairs LTG Duration 07/01/23 Oswestry disability index score Impairment 50% Short Term Goal (STG) Improved Oswestry score to no greater than 35% as measure of improved spinal function and activity tolerance 06/01/23: goal progress, dec to 42% STG Duration 05/21/23 Halfway Goal (LTG) Improve Oswestry score to no greater than 20% as measure of improved spinal function and activity tolerance. LTG Duration 07/01/23 Lower extremity functional scale Impairment 35% Short Term Goal (STG) Improve LEFS score to at least 50% as measure of improved right knee function and activity tolerance 06/03/23: goal [id number]% STG Duration 05/21/23 Rib Sawyer Goal (LTG) Improve LEFS to at least 75% as measure of improved right knee function and activity tolerance LTG Duration 07/01/23 Progress Towards Goals Progress Towards Goals Progressing Toward Goals Assessment Summary Assessment increased squats and lunges to 2 sets today, improving functional strength. Instruction in self taping of knee in preparation for discharge next week. Continued emphasis of correcting knee alignment with functional, closed chain exercises. Physical Therapy Plan Frequency and Duration Frequency of Treatment 2x/Week Duration of treatment (weeks) 12 Plan of Care Start Date 04/01/23 Plan of Care End Date 07/01/23 Therapeutic Interventions Therapeutic Interventions Home Exercise Program,Manual Therapy,Neuromuscular Re- education,Patient/Caregiver Education,Self-Care/Home Management,Soft Tissue Mobilization,Taping, Therapeutic Activities, Therapeutic Exercises Modalities Cold Pack/Ice Massage,Electric Stimulation,Hot Packs, Infrared Therapy,Traction- Mechanical Next Visit Focus/Plan Next Note Type Treatment Note Next Visit Plan Continue core and LE strengtheing and stab. Anticipate discharge next week .
--- NOTE | 2023-06-22 12:02 | PT.OTN ---
Current Diagnoses Unilateral primary osteoarthritis, right knee (06/22/23) Pain in right knee (06/22/23) Other intervertebral disc displacement, lumbosacral region (06/22/23) Difficulty in walking, not elsewhere classified (06/22/23) Physical Therapy Treatment Note PT-OP-A Visit Information Start: 04/01/23 08:10 Freq: Status: Active Protocol: Document 06/22/23 11:22 [facility] (Rec: 06/22/23 12:02 [facility] [id number]) Out-Patient Physical Therapy Visit Information Visit Information Visit Type Treatment Note Visit Start Time 11:20 Visit Stop Time 12:15 Visit Number 15 Evaluation Information Evaluation Date 04/01/23 PT-OP-B Current Condition Start: 04/01/23 08:10 Freq: Status: Active Protocol: Document 06/22/23 11:22 [facility]AK (Rec: 06/22/23 12:02 [facility] [id number]) Current Condition History of Current Condition Onset Date January 30 Current Complaints right knee pain, LBP History of Current Condition Works at a [employer], was on a ladder working on trailer and fell twisting his knee and hitting his knee on boat stand . Also injured his back when he landed on one of the boat stands during a fall. Reports his knee was very swollen. x-rays June 2022 showed arthrits in right knee. Had injection in right knee 02/09/23. Has used ice and heat, rubs his knee. Is off work at this time. Pain in back increases with lifting and bending over. Decreases a little with use of ice and rubbing. Walks for exercise but pain increases with walking. Also reports stage 4 prostate cancer; has Lupron injections every 2 months and taking Expandia medication orally. Sees auto finance sales rep and is taking cardiac medications . Uncertain extent of cancer spread. REports right knee is now prone to twisting. Prior Treatments and Tests injection right knee Treatment Goals Patient/Caregiver Goals decrease pain, improve activity tolerance. PT-OP-C Subjective Start: 04/01/23 08:10 Freq: Status: Active Protocol: Document 06/15/23 11:20 [facility]AK (Rec: 06/15/23 12:10 [facility] [id number]) OP-PT Subjective Patient Comments Patient Comments No new c/o. Rode his bike a little over the weekend. Compliant to HEP PT-OP-F Manual Assessment Start: 04/01/23 08:10 Freq: Status: Active Protocol: Document 04/01/23 08:12 [facility]AK (Rec: 04/05/23 08:57 [facility] [id number]) Manual Assessments Soft Tissue Assessment Soft Tissue Mobility Assessment decrease soft tissue mobility lumbar paraspinals with tenderness to palpation PT-OP-G Mobility & Gait Start: 04/01/23 08:10 Freq: Status: Active Protocol: Document 04/01/23 08:12 [facility]AK (Rec: 04/05/23 08:57 [facility] [id number]) OP Gait Assessment Gait Gait Assistance Required: Independent Assistive Devices Assistive Device None Gait Deviations General Gait Pattern Antalgic,Flexed Trunk,Lateral Trunk Lean Factors Limiting Gait Function Factors Limiting Gait Function Decreased Activity Tolerance, Pain PT-OP-H Neuro Start: 04/01/23 08:10 Freq: Status: Active Protocol: Document 04/01/23 08:12 [facility]AK (Rec: 04/01/23 08:57 [facility] [id number]) Sensation Evaluation Gross Sensation Gross Sensation Right LE Impaired Sensation Description Tingling PT-OP-J Posture/Palpation/Skin Start: 04/01/23 08:10 Freq: Status: Active Protocol: Document 04/01/23 08:12 [facility]AK (Rec: 04/01/23 08:57 [facility] [id number]) Posture Evaluation Position Standing Head/C-Spine Posture C-Spine Flattened T-Spine Posture Increased Kyphosis L-Spine Posture Decreased Lordosis Knee Posture (R) Genu Varus Palpation Assessment Location lumbar spine Palpation Location L3-L5 Palpation Findings Muscle Guarding,Tenderness right knee Palpation Location posterior Palpation Findings Edema,Tenderness Skin Assessment Edema Assessment right knee Edema Appearance Taut Subjective Edema Description Pain PT-OP-K Range of Motion Start: 04/01/23 08:10 Freq: Status: Active Protocol: Document 04/01/23 08:12 SAK (Rec: 04/01/23 08:57 [facility] [id number]) Lumbar Spine Range of Motion Lumbar Spine Active Testing Position Standing Flexion 25 Extension 0 Rotation Left 15 Rotation Right 10 Lateral Flexion Left 25 Lateral Flexion Right 20 ROM Limitations Pain Hip Goniometric Range of Motion Hip Right Flexion w/Knee Flexed 90 Straight Leg Raise 30 Extension 0 Abduction 20 Internal Rotation 0 External Rotation 15 left Hip ROM WFL No Flexion w/Knee Flexed 85 Straight Leg Raise 25 Extension 0 Abduction 25 Internal Rotation 10 External Rotation 35 Hip ROM Limitations Hip ROM Limitations Pain Knee Goniometric Range of Motion Knee Right Knee ROM WFL No Flexion Active (degrees) 95 Extension Active (degrees) 22 Left Knee ROM WFL Yes Knee ROM Limitations Knee ROM Limitations Pain,Swelling Ankle and Foot Goniometric Range of Motion Ankle and Foot romero Ankle/Foot ROM WFL Yes PT-OP-L Special Tests Start: 04/01/23 08:10 Freq: Status: Active Protocol: Document 04/01/23 08:12 [facility] (Rec: 04/05/23 08:55 [facility] [id number]) Special Tests Knee Special Tests Apley's Compression Test Results + Valgus- 0 Degrees Test Results - Varus- 0 Degrees Test Results +R Elva Test Test Results +R Anterior Draw Test Results - PT-OP-M Strength Start: 04/01/23 08:10 Freq: Status: Active Protocol: Document 04/01/23 08:12 [facility] (Rec: 04/05/23 08:55 [facility] [id number]) Hip Strength Hip Manual Muscle Testing Right Flexion (L2) 3- Fair- Extension (S1) 3- Fair- Abduction 3- Fair- Adduction 3 Fair External Rotation 3 Fair Internal Rotation 3+ Fair+ Left Flexion (L2) 4 Good Extension (S1) 4 Good Abduction 4 Good Adduction 4 Good External Rotation 4- Good- Internal Rotation 4 Good Knee Strength Knee Manual Muscle Testing Right Flexion (S2) 4 Good Extension (L3) 4- Good- Comments pain with resistance Left Flexion (S2) 5 Normal Extension (L3) 5 Normal Ankle/Foot Strength Ankle and Foot Manual Muscle Testing Right Dorsiflexion (L4) 4 Good Plantarflexion (S1) 4 Good Left Dorsiflexion (L4) 5 Normal Plantarflexion (S1) 5 Normal Toe Strength Toe Manual Muscle Testing Right Great Toe Extension 4 Good Left Great Toe Extension 5 Normal PT-OP-Q Treatments Start: 04/01/23 08:10 Freq: Status: Active Protocol: Document 06/22/23 11:22 [facility] (Rec: 06/22/23 12:02 [facility] [id number]) Cardio Equipment Recumbent Stepper (Sci-Fit) Duration (Minutes) 10 Resistance 3 Seat Position 12 Other BUE/BLE: 50-55 RPMs, miles miles (last min LE's only) Gym Equipment Cable Column (Body Solid) hamstring curl Details romero, unil Resistance 62.5, 32.5 Reps/Time 20 reps, 10 reps x2 Shuttle Recovery Unilateral Squats Details tactile cues for knee alignment lateral/neutral Resistance 50 Shuttle Recovery Platform Stable Reps/Time 15x2 Therapeutic Exercises Standing Exercises lateral lunge Equipment Used mirror Reps/Minutes 10x2 split squat Equipment Used mirror Reps/Minutes 10x ea resisted walking Standing Exercise Name side, fwd,bck Resistance mirror Equipment Used L3 TB lower thighs Reps/Minutes 20 ft ea Manual Therapy Treatment Taping right knee Body Location anterior Treatment Focus edema reduction Type of Tape Kinesio Tape Skin Inspection intact Comments 2 fan strips crossing PT-OP-R Modalities Start: 04/01/23 08:10 Freq: Status: Active Protocol: Document 06/22/23 11:22 [facility] (Rec: 06/22/23 12:02 [facility] [id number]) Electric Stimulation Electric Stimulation RIGHT KNEE Body Location Anterior/medial/lateral R knee Intensity 43 Target/Sweep Sweep Patient Position Hooklying Combined With Heat/Cold Cold Pack PT-OP-T Assessment and Plan Start: 04/01/23 08:10 Freq: Status: Active Protocol: Document 06/22/23 11:22 [facility] (Rec: 06/22/23 12:02 [facility] [id number]) Physical Therapy Assessment Goals radicular symptoms right LE Retirement Goal (LTG) eliminate right LE radicular symptoms LTG Duration 07/01/23 postural dysfunction Impairment severe lateral shift and forward bent posture Maintenance And Operations Supervisor Goal (LTG) Patient to demonstrate minimal postural dysfunction sitting and standing 06/01/23: good goal progress LTG Duration 07/01/23 antalgic gait Short Term Goal (STG) Patient able to ambulate with minimal to no limp with use of appropriate assistive device on level surfaces 06/01/23: good goal progress, no device. significant genu valgus right LE STG Duration goal met Maintenance And Operations Supervisor Goal (LTG) Patient will be able to ambulate without assistive device and with minimal to no limp on all surfaces including stairs LTG Duration 07/01/23 Oswestry disability index score Impairment 50% Short Term Goal (STG) Improved Oswestry score to no greater than 35% as measure of improved spinal function and activity tolerance 06/01/23: goal progress, dec to 42% STG Duration 05/21/23 Retirement Goal (LTG) Improve Oswestry score to no greater than 20% as measure of improved spinal function and activity tolerance. LTG Duration 07/01/23 Lower extremity functional scale Impairment 35% Short Term Goal (STG) Improve LEFS score to at least 50% as measure of improved right knee function and activity tolerance 06/03/23: goal [id number]% STG Duration 05/21/23 Maintenance And Operations Supervisor Goal (LTG) Improve LEFS to at least 75% as measure of improved right knee function and activity tolerance LTG Duration 07/01/23 Progress Towards Goals Progress Towards Goals Progressing Toward Goals Assessment Summary Assessment Increased to resistance of 3 with SciFit whole time and inc resistance on hamstring curl and single leg leg press. Cues for knee alignment though improving awareness. Should be ready for discharge after next PT session. Physical Therapy Plan Frequency and Duration Frequency of Treatment 2x/Week Duration of treatment (weeks) 12 Plan of Care Start Date 04/01/23 Plan of Care End Date 07/01/23 Therapeutic Interventions Therapeutic Interventions Home Exercise Program,Manual Therapy,Neuromuscular Re- education,Patient/Caregiver Education,Self-Care/Home Management,Soft Tissue Mobilization,Taping, Therapeutic Activities, Therapeutic Exercises Modalities Cold Pack/Ice Massage,Electric Stimulation,Hot Packs, Infrared Therapy,Traction- Mechanical Next Visit Focus/Plan Next Note Type Treatment Note Next Visit Plan Discharge next visit
--- NOTE | 2023-06-24 12:01 | PT.OTN ---
Current Diagnoses Unilateral primary osteoarthritis, right knee (06/24/23) Pain in right knee (06/24/23) Other intervertebral disc displacement, lumbosacral region (06/24/23) Difficulty in walking, not elsewhere classified (06/24/23) Physical Therapy Treatment Note PT-OP-A Visit Information Start: 04/01/23 08:10 Freq: Status: Active Protocol: Document 06/24/23 11:17 [facility]AK (Rec: 06/24/23 12:01 [facility] [id number]) Out-Patient Physical Therapy Visit Information Visit Information Visit Type Treatment Note Visit Start Time 11:16 Visit Stop Time 12:15 Visit Number 15 Evaluation Information Evaluation Date 04/01/23 PT-OP-B Current Condition Start: 04/01/23 08:10 Freq: Status: Active Protocol: Document 06/24/23 11:17 [facility]AK (Rec: 06/24/23 12:01 [facility] [id number]) Current Condition History of Current Condition Onset Date January 30 Current Complaints right knee pain, LBP History of Current Condition Works at a [employer], was on a ladder working on trailer and fell twisting his knee and hitting his knee on boat stand . Also injured his back when he landed on one of the boat stands during a fall. Reports his knee was very swollen. x-rays June 2022 showed arthrits in right knee. Had injection in right knee 02/09/23. Has used ice and heat, rubs his knee. Is off work at this time. Pain in back increases with lifting and bending over. Decreases a little with use of ice and rubbing. Walks for exercise but pain increases with walking. Also reports stage 4 prostate cancer; has Lupron injections every 2 months and taking Expandia medication orally. Sees count team member and is taking cardiac medications . Uncertain extent of cancer spread. REports right knee is now prone to twisting. Prior Treatments and Tests injection right knee Treatment Goals Patient/Caregiver Goals decrease pain, improve activity tolerance. PT-OP-C Subjective Start: 04/01/23 08:10 Freq: Status: Active Protocol: Document 06/24/23 11:17 [facility] (Rec: 06/24/23 12:01 [facility] [id number]) OP-PT Subjective Patient Comments Patient Comments Agreeable to discharge today. Comfortable with his exercises. PT-OP-F Manual Assessment Start: 04/01/23 08:10 Freq: Status: Active Protocol: Document 04/01/23 08:12 [facility] (Rec: 04/05/23 08:57 [facility] [id number]) Manual Assessments Soft Tissue Assessment Soft Tissue Mobility Assessment decrease soft tissue mobility lumbar paraspinals with tenderness to palpation PT-OP-G Mobility & Gait Start: 04/01/23 08:10 Freq: Status: Active Protocol: Document 04/01/23 08:12 [facility] (Rec: 04/05/23 08:57 [facility] [id number]) OP Gait Assessment Gait Gait Assistance Required: Independent Assistive Devices Assistive Device None Gait Deviations General Gait Pattern Antalgic,Flexed Trunk,Lateral Trunk Lean Factors Limiting Gait Function Factors Limiting Gait Function Decreased Activity Tolerance, Pain PT-OP-H Neuro Start: 04/01/23 08:10 Freq: Status: Active Protocol: Document 04/01/23 08:12 [facility] (Rec: 04/01/23 08:57 [facility] [id number]) Sensation Evaluation Gross Sensation Gross Sensation Right LE Impaired Sensation Description Tingling PT-OP-J Posture/Palpation/Skin Start: 04/01/23 08:10 Freq: Status: Active Protocol: Document 04/01/23 08:12 [facility] (Rec: 04/01/23 08:57 [facility] [id number]) Posture Evaluation Position Standing Head/C-Spine Posture C-Spine Flattened T-Spine Posture Increased Kyphosis L-Spine Posture Decreased Lordosis Knee Posture (R) Genu Varus Palpation Assessment Location lumbar spine Palpation Location L3-L5 Palpation Findings Muscle Guarding,Tenderness right knee Palpation Location posterior Palpation Findings Edema,Tenderness Skin Assessment Edema Assessment right knee Edema Appearance Taut Subjective Edema Description Pain PT-OP-K Range of Motion Start: 04/01/23 08:10 Freq: Status: Active Protocol: Document 04/01/23 08:12 [facility] (Rec: 04/01/23 08:57 [facility] [id number]) Lumbar Spine Range of Motion Lumbar Spine Active Testing Position Standing Flexion 25 Extension 0 Rotation Left 15 Rotation Right 10 Lateral Flexion Left 25 Lateral Flexion Right 20 ROM Limitations Pain Hip Goniometric Range of Motion Hip Right Flexion w/Knee Flexed 90 Straight Leg Raise 30 Extension 0 Abduction 20 Internal Rotation 0 External Rotation 15 left Hip ROM WFL No Flexion w/Knee Flexed 85 Straight Leg Raise 25 Extension 0 Abduction 25 Internal Rotation 10 External Rotation 35 Hip ROM Limitations Hip ROM Limitations Pain Knee Goniometric Range of Motion Knee Right Knee ROM WFL No Flexion Active (degrees) 95 Extension Active (degrees) 22 Left Knee ROM WFL Yes Knee ROM Limitations Knee ROM Limitations Pain,Swelling Ankle and Foot Goniometric Range of Motion Ankle and Foot romero Ankle/Foot ROM WFL Yes PT-OP-L Special Tests Start: 04/01/23 08:10 Freq: Status: Active Protocol: Document 04/01/23 08:12 [facility] (Rec: 04/05/23 08:55 [facility] [id number]) Special Tests Knee Special Tests Apley's Compression Test Results + Valgus- 0 Degrees Test Results - Varus- 0 Degrees Test Results +R Elva Test Test Results +R Anterior Draw Test Results - PT-OP-M Strength Start: 04/01/23 08:10 Freq: Status: Active Protocol: Document 04/01/23 08:12 [facility] (Rec: 04/05/23 08:55 [facility] [id number]) Hip Strength Hip Manual Muscle Testing Right Flexion (L2) 3- Fair- Extension (S1) 3- Fair- Abduction 3- Fair- Adduction 3 Fair External Rotation 3 Fair Internal Rotation 3+ Fair+ Left Flexion (L2) 4 Good Extension (S1) 4 Good Abduction 4 Good Adduction 4 Good External Rotation 4- Good- Internal Rotation 4 Good Knee Strength Knee Manual Muscle Testing Right Flexion (S2) 4 Good Extension (L3) 4- Good- Comments pain with resistance Left Flexion (S2) 5 Normal Extension (L3) 5 Normal Ankle/Foot Strength Ankle and Foot Manual Muscle Testing Right Dorsiflexion (L4) 4 Good Plantarflexion (S1) 4 Good Left Dorsiflexion (L4) 5 Normal Plantarflexion (S1) 5 Normal Toe Strength Toe Manual Muscle Testing Right Great Toe Extension 4 Good Left Great Toe Extension 5 Normal PT-OP-Q Treatments Start: 04/01/23 08:10 Freq: Status: Active Protocol: Document 06/24/23 11:17 [facility] (Rec: 06/24/23 12:01 [facility] [id number]) Cardio Equipment Recumbent Stepper (Sci-Fit) Duration (Minutes) 10 Resistance 3 Seat Position 12 Other BUE/BLE: 50-55 RPMs, miles miles (last min LE's only) Gym Equipment Cable Column (Body Solid) hamstring curl Details romero, unil Resistance 62.5, 32.5 Reps/Time 20 reps, 10 reps x2 Shuttle Recovery Unilateral Squats Details tactile cues for knee alignment lateral/neutral Resistance 50 Shuttle Recovery Platform Stable Reps/Time 15x2 Therapeutic Exercises Sitting Exercises chair squats Resistance L2 TB thighs Equipment Used mirror Reps/Minutes 10x3 Comments cues for neutral LE alignment Standing Exercises lateral lunge Equipment Used mirror Reps/Minutes 10x2 split squat Equipment Used mirror Reps/Minutes 10x ea BOSU lunge Equipment Used mirror visual feedback Reps/Minutes 10x ea lift Reps/Minutes 3x Comments discontinued due to balance difficulty, unsafe, poor alignment resisted walking Standing Exercise Name side, fwd,bck Resistance mirror Equipment Used L3 TB lower thighs Reps/Minutes 20 ft ea Paleoff press Equipment Used green TB Reps/Minutes 10x ea direction shoulder extension Equipment Used green TB Reps/Minutes 10x2 HC stretch Equipment Used Niraj Reps/Minutes 2x30 Manual Therapy Treatment Taping right knee Body Location anterior Treatment Focus edema reduction Type of Tape Kinesio Tape Skin Inspection intact Comments 2 fan strips crossing Self-Care/Home Management Treatment Education Other Education reviw self taping PT-OP-R Modalities Start: 04/01/23 08:10 Freq: Status: Active Protocol: Document 06/24/23 11:17 [facility] (Rec: 06/24/23 12:01 [facility] [id number]) Electric Stimulation Electric Stimulation RIGHT KNEE Body Location Anterior/medial/lateral R knee Intensity 43 Target/Sweep Sweep Patient Position Hooklying Combined With Heat/Cold Cold Pack PT-OP-T Assessment and Plan Start: 04/01/23 08:10 Freq: Status: Active Protocol: Document 06/24/23 11:17 [facility] (Rec: 06/24/23 12:01 [facility] [id number]) Physical Therapy Assessment Goals radicular symptoms right LE Correction Goal (LTG) eliminate right LE radicular symptoms 06/24/23: goal met LTG Duration 07/01/23 postural dysfunction Impairment severe lateral shift and forward bent posture Senior Storage Administrator Goal (LTG) Patient to demonstrate minimal postural dysfunction sitting and standing 06/01/23: good goal progress 06/24/23: goal met LTG Duration 07/01/23 antalgic gait Short Term Goal (STG) Patient able to ambulate with minimal to no limp with use of appropriate assistive device on level surfaces 06/01/23: good goal progress, no device. significant genu valgus right LE STG Duration goal met Correction Goal (LTG) Patient will be able to ambulate without assistive device and with minimal to no limp on all surfaces including stairs 06/24/23: goal met LTG Duration 07/01/23 Oswestry disability index score Impairment 50% Short Term Goal (STG) Improved Oswestry score to no greater than 35% as measure of improved spinal function and activity tolerance 06/01/23: goal progress, dec to 42% 06/24/23: goal met STG Duration goal met Senior Storage Administrator Goal (LTG) Improve Oswestry score to no greater than 20% as measure of improved spinal function and activity tolerance. 06/24/23: goal met LTG Duration 07/01/23 Lower extremity functional scale Impairment 35% Short Term Goal (STG) Improve LEFS score to at least 50% as measure of improved right knee function and activity tolerance 06/03/23: goal [id number]% 06/24/23: goal met STG Duration 05/21/23 Senior Storage Administrator Goal (LTG) Improve LEFS to at least 75% as measure of improved right knee function and activity tolerance 06/24/23: GOAL MET. LTG Duration 07/01/23 Progress Towards Goals Progress Towards Goals Progressing Toward Goals Assessment Summary Assessment Patient independent with HEP after final corrections today. REady for discharge to independent HEP. Physical Therapy Plan Discharge Physical Therapy Discharge Reasons Goals Met
== END 2023-07-24 10:34 | disposition home or self-care (01) ==
LOC: PHYS 11:15
PROVIDERS: Family Provider Internal Medicine; PCP Internal Medicine; Referring Provider Physical Medicine & Rehabilitation; Visit Provider Physical Medicine & Rehabilitation
DX: M17.11 Unilateral primary osteoarthritis, right knee (principal); M51.27 Other intervertebral disc displacement, lumbosacral region; M25.561 Pain in right knee; R26.2 Difficulty in walking, not elsewhere classified
CPT/HCPCS: 97014; 97110; 97116; 97140; 97163; 97535; G0283

== ENCOUNTER → 2023-07-29 09:32 | Outpatient (CLI) | payer MEDICARE, MEDICAID, SELFPAY ==
[2023-07-10 10:40] VITALS: BMI 22.7
[2023-07-29 10:27] LABS: Add Manual Diff / Slide Review NO; Basophils Absolute Auto 0 /uL (0-100); Basophils Percent Auto 0.4 % (0-2); Eosinophils Absolute Auto 100 /uL (0-450); Eosinophils Percent Auto 1.6 % (2-4); Hematocrit 43.2 % (41-53); Hemoglobin 14.2 g/dL (13.5-17.5); Lymphocytes Absolute Auto 1600 /uL (1100-4500); Lymphocytes Percent Auto 24.1 % (25-40); Mean Corpuscular HGB Conc 32.9 % (30-36); Mean Corpuscular Hemoglobin 29.2 PG (26-34); Monocytes Absolute Auto 600 /uL (0-900); Neutrophils Absolute Auto 4400 /uL (1500-7000); Neutrophils Percent Auto 64.9 % (50-75); Platelet Count 133 X10^3/uL (150-400); Red Blood Cell Count 4.86 X10^6/uL (4.5-5.9); White Blood Cell Count 6.7 X10^3/uL (4.5-11.0)
[2023-07-29 10:54] LABS: BUN Creatinine Ratio 18.5 (6-22); Blood Urea Nitrogen 23 mg/dL (9-20); Calcium 9.5 mg/dL (8.4-10.2); Carbon Dioxide 24 mmol/L (22-32); Chloride 107 mmol/L (98-107); Cholesterol 159 mg/dL (140-199); Estimated Glomerular Filt Rate > 60 mL/min (>60); Glucose 119 mg/dL (80-110); HDL Cholesterol 46 mg/dL (40-60); HEMOLYSIS < 15 (0-50); LDL Cholesterol Calculated 69 mg/dL (<100); Potassium 4.3 mmol/L (3.4-5.1); Sodium 140 mmol/L (137-145); Triglycerides 222 mg/dL (35-150)
== END ==
PROVIDERS: Family Provider Internal Medicine; PCP Internal Medicine; Referring Provider Internal Medicine Cardiovascular Disease; Visit Provider Internal Medicine Cardiovascular Disease
DX: I10 Essential (primary) hypertension (principal); E78.5 Hyperlipidemia, unspecified
CPT/HCPCS: 36415; 80048; 80061; 85025

== ENCOUNTER → 2023-08-10 15:57 | Outpatient (CLI) | payer MEDICARE, MEDICAID, SELFPAY ==
[2023-07-10 10:40] VITALS: BMI 22.7
[2023-08-10 17:34] LABS: Add Manual Diff / Slide Review NO; Basophils Absolute Auto 0 /uL (0-100); Basophils Percent Auto 0.3 % (0-2); Eosinophils Absolute Auto 100 /uL (0-450); Eosinophils Percent Auto 1.8 % (2-4); Hematocrit 45.2 % (41-53); Hemoglobin 14.9 g/dL (13.5-17.5); Lymphocytes Absolute Auto 1600 /uL (1100-4500); Lymphocytes Percent Auto 24.5 % (25-40); Mean Corpuscular Hemoglobin 29.5 PG (26-34); Mean Corpuscular Volume 89.4 fL (80-100); Monocytes Absolute Auto 600 /uL (0-900); Monocytes Percent Auto 8.6 % (3-14); Neutrophils Absolute Auto 4400 /uL (1500-7000); Neutrophils Percent Auto 64.8 % (50-75); Platelet Count 121 X10^3/uL (150-400); Red Blood Cell Count 5.05 X10^6/uL (4.5-5.9); Red Cell Distribution Width 14.9 % (11.6-14.8); White Blood Cell Count 6.7 X10^3/uL (4.5-11.0)
[2023-08-10 18:20] LABS: Erythrocyte Sedimentation Rate 18 MM/HR (0-15)
[2023-08-10 18:45] LABS: Alanine Aminotransferase 24 IU/L (<50); Albumin 4.5 g/dL (3.5-5.0); Albumin Globulin Ratio 1.3 (1.0-2.8); Alkaline Phosphatase 117 U/L (38-126); Aspartate Aminotransferase 29 IU/L (17-59); BUN Creatinine Ratio 18.3 (6-22); Bilirubin Total 0.5 mg/dL (0.2-1.3); Blood Urea Nitrogen 23 mg/dL (9-20); C-Reactive Protein Quant < 0.5 mg/dL (<1.0); Calcium 9.7 mg/dL (8.4-10.2); Carbon Dioxide 28 mmol/L (22-32); Chloride 103 mmol/L (98-107); Cholesterol 155 mg/dL (140-199); Estimated Glomerular Filt Rate 60 mL/min (>60); Globulin 3.4 g/dL (1.7-4.1); Glucose 109 mg/dL (80-110); HDL Cholesterol 40 mg/dL (40-60); HEMOLYSIS 15 (0-50); LDL Cholesterol Calculated 76 mg/dL (<100); Potassium 4.5 mmol/L (3.4-5.1); Sodium 137 mmol/L (137-145); Total Protein 7.9 g/dL (6.3-8.2); Triglycerides 193 mg/dL (35-150)
[2023-08-10 19:07] LABS: TSH w/ Reflex to FT4 7.76 uIU/mL (0.47-4.68)
[2023-08-10 19:36] LABS: Hep C Virus Ab w/Reflex Quant NEGATIVE s/c (NEGATIVE)
[2023-08-10 19:53] LABS: Free T4, Direct Thyroxine 1.15 ng/dL (0.78-2.19)
[2023-08-12 08:22] LABS: PSA, Total < 0.1 ng/mL (0.0-4.0)
== END ==
PROVIDERS: Family Provider Internal Medicine; PCP Internal Medicine; Referring Provider Nurse Practitioner Family; Visit Provider Nurse Practitioner Family
DX: Z13.220 Encounter for screening for lipoid disorders (principal); Z11.59 Encounter for screening for other viral diseases; C61 Malignant neoplasm of prostate; I10 Essential (primary) hypertension; M54.50 Low back pain, unspecified
CPT/HCPCS: 36415; 80053; 80061; 84153; 84154; 84439; 84443; 85025; 85651; 86140; 86803

== ENCOUNTER → 2023-08-12 12:06 | Outpatient (CLI) | payer OTHER, SELFPAY ==
[2023-07-10 10:40] VITALS: BMI 22.7
--- NOTE | 2023-08-12 | DI.RAD.S_ITS ---
PROCEDURE: XR LUMBAR SPINE 2-3V INDICATIONS: Low back pain, unspecified TECHNIQUE: 3 views of the lumbar spine were acquired. COMPARISON: [facility], CR, XR LUMBAR SPINE 2-3V, 09/21/2020, 14:34. FINDINGS: Bones: Moderate degenerative changes. Vertebral body heights are well maintained. There is straightening of the normal lordosis. No vertebral body height loss. Partially seen hip arthrosis. Soft tissues: Vascular calcifications. Moderate fecal loading. IMPRESSION: Moderate degenerative changes, similar compared to 2020. No acute radiographic abnormality. If there is high concern for further derangement, consider MRI evaluation. Dictated by: Maikol Atkinson M.D. on 08/12/2023 at 16:47 Approved by: Maikol Atkinson M.D. on 08/12/2023 at 16:48
== END ==
LOC: RAD 12:10
PROVIDERS: Family Provider Internal Medicine; PCP Nurse Practitioner Family; Referring Provider Nurse Practitioner Family; Visit Provider Nurse Practitioner Family
DX: M47.816 Spondylosis without myelopathy or radiculopathy, lumbar region (principal); M54.50 Low back pain, unspecified
CPT/HCPCS: 72100

== ENCOUNTER → 2023-08-20 15:47 | Outpatient (CLI) | payer MEDICARE, MEDICAID, SELFPAY ==
[2023-07-10 10:40] VITALS: BMI 22.7
[2023-08-20 17:03] LABS: Add Manual Diff / Slide Review NO; Basophils Absolute Auto 0 /uL (0-100); Basophils Percent Auto 0.5 % (0-2); Eosinophils Absolute Auto 100 /uL (0-450); Hemoglobin 14.3 g/dL (13.5-17.5); Lymphocytes Absolute Auto 1900 /uL (1100-4500); Lymphocytes Percent Auto 29.1 % (25-40); Mean Corpuscular HGB Conc 33.3 % (30-36); Mean Corpuscular Hemoglobin 29.1 PG (26-34); Mean Corpuscular Volume 87.5 fL (80-100); Monocytes Absolute Auto 600 /uL (0-900); Monocytes Percent Auto 9.6 % (3-14); Neutrophils Absolute Auto 3800 /uL (1500-7000); Neutrophils Percent Auto 58.8 % (50-75); Platelet Count 129 X10^3/uL (150-400); Red Blood Cell Count 4.91 X10^6/uL (4.5-5.9); Red Cell Distribution Width 14.8 % (11.6-14.8); White Blood Cell Count 6.5 X10^3/uL (4.5-11.0)
[2023-08-20 17:25] LABS: Erythrocyte Sedimentation Rate 21 MM/HR (0-15)
[2023-08-20 17:45] LABS: Alanine Aminotransferase 24 IU/L (<50); Albumin 4.4 g/dL (3.5-5.0); Albumin Globulin Ratio 1.3 (1.0-2.8); Alkaline Phosphatase 116 U/L (38-126); Aspartate Aminotransferase 32 IU/L (17-59); BUN Creatinine Ratio 17.3 (6-22); Bilirubin Total 0.7 mg/dL (0.2-1.3); Blood Urea Nitrogen 23 mg/dL (9-20); C-Reactive Protein Quant < 0.5 mg/dL (<1.0); Calcium 9.6 mg/dL (8.4-10.2); Carbon Dioxide 23 mmol/L (22-32); Chloride 106 mmol/L (98-107); Cholesterol 164 mg/dL (140-199); Estimated Glomerular Filt Rate 56 mL/min (>60); Globulin 3.4 g/dL (1.7-4.1); Glucose 106 mg/dL (80-110); HDL Cholesterol 41 mg/dL (40-60); HEMOLYSIS < 15 (0-50); LDL Cholesterol Calculated 77 mg/dL (<100); Potassium 4.3 mmol/L (3.4-5.1); Sodium 137 mmol/L (137-145); Total Protein 7.8 g/dL (6.3-8.2); Triglycerides 230 mg/dL (35-150)
[2023-08-20 18:14] LABS: TSH w/ Reflex to FT4 8.22 uIU/mL (0.47-4.68)
[2023-08-20 18:38] LABS: Free T4, Direct Thyroxine 1.15 ng/dL (0.78-2.19)
[2023-08-20 19:06] LABS: Hep C Virus Ab w/Reflex Quant NEGATIVE s/c (NEGATIVE)
[2023-08-25 08:59] LABS: PSA, Total < 0.1 ng/mL (0.0-4.0)
== END ==
PROVIDERS: Family Provider Internal Medicine; PCP Nurse Practitioner Family; Referring Provider Nurse Practitioner Family; Visit Provider Nurse Practitioner Family
DX: E78.5 Hyperlipidemia, unspecified (principal)
CPT/HCPCS: 36415; 80053; 80061; 84153; 84154; 84439; 84443; 85025; 85651; 86140; 86803

== ENCOUNTER → 2024-08-27 16:39 | Outpatient (CLI) | payer MEDICARE, SELFPAY ==
[2023-07-10 10:40] VITALS: BMI 22.7
--- NOTE | 2024-08-27 16:42 | DI.RAD.S_ITS ---
PROCEDURE: XR RIBS LT MIN 3V W CXR1V INDICATIONS: Left rib pain TECHNIQUE: 2 views of the ribs were acquired, along with a single view chest. COMPARISON: [facility], , XR CHEST 1V, 05/07/2019, 12:39. FINDINGS: Surgical changes and devices: None. Bones and chest wall: A marker is placed upon the area of clinical concern. Mildly displaced rib fractures can be seen involving the left lateral 8th and 9th ribs. Remodeling changes are seen. No rib fractures are seen elsewhere. No suspicious bony lesions. Age-appropriate bony degenerative changes are seen. Overlying soft tissues appear unremarkable. Lungs and pleura: No pleural effusions or pneumothorax. Lungs appear clear. Mediastinum: Mediastinal contours appear normal. Heart size is normal. Atherosclerotic calcification of the aortic arch is noted. IMPRESSION: Left lateral 8th and 9th rib fractures can be seen. Remodeling changes are seen and these fractures are considered to be subacute. Please correlate with known patient history, however. Dictated by: Renato Henriquez M.D. on 08/27/2024 at 16:16 Approved by: Renato Henriquez M.D. on 08/27/2024 at 16:18
== END ==
LOC: RAD 16:41
PROVIDERS: Family Provider Internal Medicine; PCP Internal Medicine; Referring Provider Physician Assistant Surgical; Visit Provider Physician Assistant Surgical
DX: S22.42XA Multiple fractures of ribs, left side, initial encounter for closed fracture (principal); R07.81 Pleurodynia
CPT/HCPCS: 71101

== ENCOUNTER → 2025-02-15 08:37 | Outpatient (CLI) | payer MEDICARE, SELFPAY ==
[2023-07-10 10:40] VITALS: BMI 22.7
--- NOTE | 2025-02-15 08:39 | DI.RAD.S_ITS ---
PROCEDURE: XR CHEST 2V INDICATIONS: hx rib fractures reassess TECHNIQUE: 2 views of the chest were acquired. COMPARISON: [facility], CR, XR RIBS LT MIN 3V W CXR1V, 08/27/2024, 16:46. [facility], CR, XR CHEST 2V, 04/14/2019, 12:53. FINDINGS: Surgical changes and devices: None. Lungs and pleura: Lungs are clear. No pleural effusions or pneumothorax. Mediastinum: Mediastinal contours are normal. Heart size is normal. Bones and chest wall: No suspicious bony abnormalities. Soft tissues appear unremarkable. Chronic left 7th and 8th rib fractures. Eighth rib fracture is healed with deformity. Seventh rib fracture may have healed with nonunion. Consider left rib x-ray series if clinically indicated. IMPRESSION: No acute cardiopulmonary abnormality is seen. Chronic left 7th and 8th rib fractures. Dictated by: Josey Mariano MD, PhD on 02/15/2025 at 9:40 Approved by: Josey Mariano MD, PhD on 02/15/2025 at 9:43
[2025-02-15 10:16] LABS: Hematocrit 43.9 % (41-53); Hemoglobin 14.7 g/dL (13.5-17.5); Mean Corpuscular HGB Conc 33.4 % (30-36); Mean Corpuscular Hemoglobin 29.2 PG (26-34); Mean Corpuscular Volume 87.5 fL (80-100); Platelet Count 127 X10^3/uL (150-400)
[2025-02-15 10:37] LABS: Alanine Aminotransferase 25 IU/L (<50); Albumin 4.3 g/dL (3.5-5.0); Albumin Globulin Ratio 1.3 (1.0-2.8); Alkaline Phosphatase 130 U/L (38-126); Blood Urea Nitrogen 23 mg/dL (9-20); Calcium 9.5 mg/dL (8.4-10.2); Carbon Dioxide 24 mmol/L (22-32); Chloride 103 mmol/L (98-107); Cholesterol 193 mg/dL (140-199); Estimated Glomerular Filt Rate > 60 mL/min (>60); Globulin 3.2 g/dL (1.7-4.1); Glucose 142 mg/dL (70-99); HDL Cholesterol 50 mg/dL (40-60); HEMOLYSIS < 15 (0-50); Potassium 4.4 mmol/L (3.4-5.1); Sodium 136 mmol/L (137-145); Total Protein 7.5 g/dL (6.3-8.2); Triglycerides 291 mg/dL (35-150)
[2025-02-15 11:03] LABS: TSH w/ Reflex to FT4 6.32 uIU/mL (0.47-4.68)
[2025-02-15 11:04] LABS: Prostate Specific Antigen < 0.064 ng/mL (0.10-4.00)
[2025-02-15 11:25] LABS: Vitamin B12 Reflex MMA if <400 377 pg/mL (239-931)
[2025-02-15 11:32] LABS: Free T4, Direct Thyroxine 1.06 ng/dL (0.78-2.19)
== END ==
PROVIDERS: Family Provider Internal Medicine; PCP Internal Medicine; Referring Provider Internal Medicine; Visit Provider Internal Medicine
DX: S22.42XG Multiple fractures of ribs, left side, subsequent encounter for fracture with delayed healing (principal); C79.82 Secondary malignant neoplasm of genital organs; C80.1 Malignant (primary) neoplasm, unspecified; I50.22 Chronic systolic (congestive) heart failure; E78.2 Mixed hyperlipidemia; E53.8 Deficiency of other specified B group vitamins
CPT/HCPCS: 36415; 71046; 80053; 80061; 82607; 83921; 84153; 84439; 84443; 85027